=== PATIENT | male | born 1965 ===

== ENCOUNTER 2021-11-09 14:12 | Emergency (ER) | payer MEDICAID, SELFPAY ==
--- NOTE | ~2021-11-09 | XR_ITS ---
EXAMINATION: XR CHEST CLINICAL INFORMATION: Shortness of breath. COMPARISON: None TECHNIQUE: Frontal view of the chest was obtained. FINDINGS: Patchy opacities are seen in the left mid and lower lung ye. There is mild prominence of the pulmonary vasculature and cardiac silhouette. The mediastinal structures are unremarkable. XR/XR chest 1V IMPRESSION: Patchy opacities in the left mid and lower lung ye could represent atelectasis and/or infiltrates. Underlying mild congestion cannot be excluded.
--- NOTE | 2021-11-09 14:19 | ECG_ITS ---
Test Reason : CHEST PAIN Blood Pressure : / mmHG Vent. Rate : 086 BPM Atrial Rate : 000 BPM P-R Int : 000 ms QRS Dur : 078 ms QT Int : 374 ms P-R-T Axes : 000 -01 045 degrees QTc Int : 447 ms Atrial fibrillation Abnormal ECG No previous ECGs available Referred By: Sigrid Morris Electronically Signed By:JOSEY MESSER
[2021-11-09 14:22] VITALS: BP 117/87; BP 118/78; PULSE 79; PULSE 88; RESP 18; TEMP 37; O2SAT 95; O2SAT 96; BMI 30.5
--- NOTE | 2021-11-09 14:28 | ED.CHESTPAIN ---
HPI - Chest Pain General Chief Complaint: Chest Pain Stated Complaint: SOB,CP FROM [facility] PER EMS Time Seen by Provider: 11/09/21 14:17 Source: patient Mode of arrival: EMS History of Present Illness HPI narrative: This is a 56-year-old male who is brought in by EMS from a [facility], not known to us, for reported complaints of chest pain and shortness of breath since yesterday. 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 Patient states that the chest pain started yesterday, sharp in nature, nonradiating, intermittent, not associated with fever, chills, shortness of breath, dizziness, sweating. Patient states that he had the sharp chest pain all morning but currently is completely asymptomatic. Patient states that he was started on oxygen approximately 1 month ago. He denies any abdominal pain and is noted to have a Mathias catheter in place. Related Data Previous Rx's Medication Instructions Recorded amoxicillin 875 mg-potassium 1 tab PO Q12H 7 Days #14 tab 11/09/21 clavulanate 125 mg tablet Allergies Allergy/AdvReac Type Severity Reaction Status Date / Time No Known Allergies Allergy Verified 11/09/21 17:25 Review of Systems Review of Systems: Pertinent positives and negatives as stated in HPI 10 point review of systems is otherwise negative. PMFSH Past Medical History Source: nursing notes reviewed Social History Social History Alcohol intake: never Patient Tobacco Use Status: Never used Tobacco Use of substances other than those prescribed or required for medical reasons: No Advance Directives: No Advance Directives Information Provided: No Physical Exam Vital Signs: Vital Signs: Last Vital Signs Temp 98.6 F 11/09/21 14:22 Pulse 80 11/09/21 15:04 Resp 22 H 11/09/21 15:04 BP 127/90 H 11/09/21 15:04 Pulse Ox 98 11/09/21 15:04 Oxygen Flow Rate 2 11/09/21 14:22 BMI result Body Mass Index 30.5 VITAL SIGNS: Reviewed. GENERAL: Well developed, well nourished, in no acute distress. HEAD: Normocephalic/atraumatic EYES: PERRLA, EOMI EARS: Ext canals without abnormality OROPHARYNX: no oral lesions noted, posterior pharynx clear LUNGS: Good inspiratory effort without rhonchi/rales but noted decreased breath sounds at left base. SpO2<95> on 2 L of nasal cannula CARDIOVASCULAR: IRR/IRR without noted murmurs, no JVD or lower extremity edema. ABDOMEN: Soft, non-tender, non-distended with bowel sounds. MUSCULOSKELETAL: No tenderness, deformities, or effusions noted on gross inspection. EXTREMITIES: No cyanosis, clubbing or edema. SKIN: Inspection of the skin reveals no rashes, noted petechiae to left lower extremity NEUROLOGIC: Alert and oriented x 4. Left-sided hemiparesis at baseline, sensation is intact. Course Course Course Narrative: 56-year-old male with history and clinical presentation possible GERD symptoms, will evaluate for evidence of pneumonia not suspecting cardiac in nature at this time. Review of all investigations demonstrates possible infiltrates in the left lung, patient is oxygenating well on his baseline nasal cannula, troponin and BNP are benign without ischemic changes on EKG. Patient provided with initial antibiotics and will be discharged on remaining course. MDM - Chest Pain Lab Data Result diagrams: 11/09/21 15:00 11/09/21 14:59 Labs: Lab Results 11/09/21 11/09/21 11/09/21 Range/Units 14:59 14:59 14:59 WBC (4.8-10.8) X10*3/uL RBC (4.60-5.80) X10*6/uL Hgb (14.0-18.0) g/dl Hct (42.0-52.0) % MCV (80.0-98.0) fL MCH (27.0-33.0) pg MCHC (31.0-36.0) g/dl RDW (11.0-16.0) % Plt Count (160-400) X10*3/uL MPV (9.4-12.4) fL Immature Gran % (Auto) (0.0-0.4) % Neut % (Auto) (45-73) % Lymph % (Auto) (20-40) % [place] % (Auto) (2-11) % Eos % (Auto) (0-4) % Baso % (Auto) (0-2) % Lymph # (Auto) (1.2-4.9) X10*3/uL [place] # (Auto) (0.1-1.2) X10*3/uL Eos # (Auto) (0.0-0.4) X10*3/uL Baso # (Auto) (0.0-0.2) X10*3/uL Abs Immat Gran (auto) (0.00-0.03) X10*3/uL Absolute Neuts (auto) (2.0-8.3) x10*3/uL Absolute Nucleated RBC (0.0-0.012) X10*3/uL Nucleated RBC % (auto) (0.0-0.2) /100WBC PT (9.9-13.0) SEC INR (0.9-1.1) VBG pH (7.32-7.43) VBG pCO2 mmHg VBG pO2 mmHg VBG HCO3 (22-26) mmol/L VBG O2 Saturation % VBG Base Excess mmol/L Sodium 142 (135-145) mmol/L Potassium 4.5 (3.3-5.1) mmol/L Chloride 105 (96-108) mmol/L Carbon Dioxide 28 (22-29) mmol/L Anion Gap 14 (12-20) BUN 13 (9-16) mg/dL Creatinine 0.83 (0.5-1.4) mg/dL Estim Creat Clear Calc 133.1 Estimated GFR > 60 Random Glucose 96 (60-115) mg/dL Lactic Acid (0.5-2.0) mmol/L Calcium 9.1 (8.4-10.2) mg/dL Total Bilirubin 0.5 (0.0-1.0) mg/dL AST 18 (5-37) U/L ALT 27 (0-40) U/L Alkaline Phosphatase 123 H (39-117) U/L Troponin I High Sens (<3.5-35.0) ng/L B-Natriuretic Peptide 64 (<100) pg/mL Total Protein 6.5 (6.5-8.0) g/dL Albumin 4.1 (3.5-5.0) g/dL COVID-19 ([facility]) Negative (Negative) COVID-19 Clin Com See Note 11/09/21 11/09/21 11/09/21 Range/Units 14:59 14:59 14:59 WBC (4.8-10.8) X10*3/uL RBC (4.60-5.80) X10*6/uL Hgb (14.0-18.0) g/dl Hct (42.0-52.0) % MCV (80.0-98.0) fL MCH (27.0-33.0) pg MCHC (31.0-36.0) g/dl RDW (11.0-16.0) % Plt Count (160-400) X10*3/uL MPV (9.4-12.4) fL Immature Gran % (Auto) (0.0-0.4) % Neut % (Auto) (45-73) % Lymph % (Auto) (20-40) % [place] % (Auto) (2-11) % Eos % (Auto) (0-4) % Baso % (Auto) (0-2) % Lymph # (Auto) (1.2-4.9) X10*3/uL [place] # (Auto) (0.1-1.2) X10*3/uL Eos # (Auto) (0.0-0.4) X10*3/uL Baso # (Auto) (0.0-0.2) X10*3/uL Abs Immat Gran (auto) (0.00-0.03) X10*3/uL Absolute Neuts (auto) (2.0-8.3) x10*3/uL Absolute Nucleated RBC (0.0-0.012) X10*3/uL Nucleated RBC % (auto) (0.0-0.2) /100WBC PT 14.9 H (9.9-13.0) SEC INR 1.3 H (0.9-1.1) VBG pH (7.32-7.43) VBG pCO2 mmHg VBG pO2 mmHg VBG HCO3 (22-26) mmol/L VBG O2 Saturation % VBG Base Excess mmol/L Sodium (135-145) mmol/L Potassium (3.3-5.1) mmol/L Chloride (96-108) mmol/L Carbon Dioxide (22-29) mmol/L Anion Gap (12-20) BUN (9-16) mg/dL Creatinine (0.5-1.4) mg/dL Estim Creat Clear Calc Estimated GFR Random Glucose (60-115) mg/dL Lactic Acid 1.0 (0.5-2.0) mmol/L Calcium (8.4-10.2) mg/dL Total Bilirubin (0.0-1.0) mg/dL AST (5-37) U/L ALT (0-40) U/L Alkaline Phosphatase (39-117) U/L Troponin I High Sens < 3.5 (<3.5-35.0) ng/L B-Natriuretic Peptide (<100) pg/mL Total Protein (6.5-8.0) g/dL Albumin (3.5-5.0) g/dL COVID-19 ([facility]) (Negative) COVID-19 Clin Com 11/09/21 11/09/21 Range/Units 15:00 15:03 WBC 8.3 (4.8-10.8) X10*3/uL RBC 4.50 L (4.60-5.80) X10*6/uL Hgb 13.4 L (14.0-18.0) g/dl Hct 42.0 (42.0-52.0) % MCV 93.3 (80.0-98.0) fL MCH 29.8 (27.0-33.0) pg MCHC 31.9 (31.0-36.0) g/dl RDW 14.5 (11.0-16.0) % Plt Count 236 (160-400) X10*3/uL MPV 9.8 (9.4-12.4) fL Immature Gran % (Auto) 1.0 H (0.0-0.4) % Neut % (Auto) 52.3 (45-73) % Lymph % (Auto) 37.0 (20-40) % [place] % (Auto) 6.9 (2-11) % Eos % (Auto) 2.2 (0-4) % Baso % (Auto) 0.6 (0-2) % Lymph # (Auto) 3.1 (1.2-4.9) X10*3/uL [place] # (Auto) 0.6 (0.1-1.2) X10*3/uL Eos # (Auto) 0.2 (0.0-0.4) X10*3/uL Baso # (Auto) 0.1 (0.0-0.2) X10*3/uL Abs Immat Gran (auto) 0.08 H (0.00-0.03) X10*3/uL Absolute Neuts (auto) 4.3 (2.0-8.3) x10*3/uL Absolute Nucleated RBC 0.000 (0.0-0.012) X10*3/uL Nucleated RBC % (auto) 0.0 (0.0-0.2) /100WBC PT (9.9-13.0) SEC INR (0.9-1.1) VBG pH 7.39 (7.32-7.43) VBG pCO2 46 mmHg VBG pO2 44 mmHg VBG HCO3 28 H (22-26) mmol/L VBG O2 Saturation 70.0 % VBG Base Excess 3.1 mmol/L Sodium (135-145) mmol/L Potassium (3.3-5.1) mmol/L Chloride (96-108) mmol/L Carbon Dioxide (22-29) mmol/L Anion Gap (12-20) BUN (9-16) mg/dL Creatinine (0.5-1.4) mg/dL Estim Creat Clear Calc Estimated GFR Random Glucose (60-115) mg/dL Lactic Acid (0.5-2.0) mmol/L Calcium (8.4-10.2) mg/dL Total Bilirubin (0.0-1.0) mg/dL AST (5-37) U/L ALT (0-40) U/L Alkaline Phosphatase (39-117) U/L Troponin I High Sens (<3.5-35.0) ng/L B-Natriuretic Peptide (<100) pg/mL Total Protein (6.5-8.0) g/dL Albumin (3.5-5.0) g/dL COVID-19 ([facility]) (Negative) COVID-19 Clin Com ECG Data ECG #1: Attestation: I personally reviewed and interpreted this ECG as follows: Prior ECG tracings: not available for review Interpretation: Atrial fibrillation, HR-86, no STEMI, QRS and QTC are within normal limits. Discharge Plan Discharge Clinical Impression: Shortness of breath, Atypical chest pain, Pneumonia Patient Disposition: er [facility] Instructions: Pneumonia (ED), Shortness of Breath (ED) Additional Instructions: 1. Resume all home medications. 2. Complete the entire course of antibiotics. 3. Follow-up with your primary care provider in the next 1-2 days. Return to the ER for worsening symptoms. Prescriptions: New amoxicillin-pot clavulanate 875-125 mg tablet 1 tab PO Q12H 7 Days Qty: 14 0RF
[2021-11-09 15:04] VITALS: BP 127/90; PULSE 80; RESP 22; O2SAT 98
[2021-11-09 15:06] LABS: MANUAL DIFF FLAG NO
[2021-11-09 15:08] LABS: Basophils Absolute Auto 0.1 X10*3/uL (0.0-0.2); Basophils Percent Auto 0.6 % (0-2); Eosinophils Absolute Auto 0.2 X10*3/uL (0.0-0.4); Eosinophils Percent Auto 2.2 % (0-4); Hemoglobin 13.4 g/dl (14.0-18.0); Imm Gran Abs Auto 0.08 X10*3/uL (0.00-0.03); Lymphocytes Absolute Auto 3.1 X10*3/uL (1.2-4.9); Mean Corpuscular HGB Conc 31.9 g/dl (31.0-36.0); Mean Corpuscular Hemoglobin 29.8 pg (27.0-33.0); Mean Corpuscular Volume 93.3 fL (80.0-98.0); Mean Platelet Volume 9.8 fL (9.4-12.4); Monocytes Absolute Auto 0.6 X10*3/uL (0.1-1.2); Monocytes Percent Auto 6.9 % (2-11); Neutrophils Absolute Auto 4.3 x10*3/uL (2.0-8.3); Neutrophils Percent Auto 52.3 % (45-73); Platelet Count 236 X10*3/uL (160-400); Red Cell Distribution Width 14.5 % (11.0-16.0); White Blood Count 8.3 X10*3/uL (4.8-10.8)
[2021-11-09 15:11] LABS: VBG Base Excess 3.1 mmol/L; VBG HCO3 28 mmol/L (22-26); VBG pCO2 46 mmHg; VBG pH 7.39 (7.32-7.43); VBG pO2 44 mmHg
[2021-11-09 15:14] LABS: INTERNATIONAL NORM RATIO 1.3 (0.9-1.1); Prothrombin Time 14.9 SEC (9.9-13.0)
[2021-11-09 15:24] LABS: COVID-19 Test Negative (Negative); IDNOW Serial# 16C4AD1C
[2021-11-09 15:33] LABS: Alanine Aminotransferase 27 U/L (0-40); Albumin Level 4.1 g/dL (3.5-5.0); Alkaline Phosphatase 123 U/L (39-117); Anion Gap 14 (12-20); Aspartate Amino Transferase 18 U/L (5-37); Bilirubin Total 0.5 mg/dL (0.0-1.0); Blood Urea Nitrogen 13 mg/dL (9-16); Calcium 9.1 mg/dL (8.4-10.2); Carbon Dioxide 28 mmol/L (22-29); Chloride 105 mmol/L (96-108); Creatinine Clr Calc Pharmacy 133.1; Estimated Glomerular Filt Rate > 60; Glucose Random 96 mg/dL (60-115); Potassium 4.5 mmol/L (3.3-5.1); Sodium 142 mmol/L (135-145); Total Protein 6.5 g/dL (6.5-8.0)
[2021-11-09 15:37] LABS: Venous Blood Gas Refer to POC result
[2021-11-09 15:40] LABS: B Type Natriuretic Peptide 64 pg/mL (<100); Troponin-I High Sensitivity < 3.5 ng/L (<3.5-35.0)
--- NOTE | 2021-11-09 16:19 | PC.NURSE ---
[place] cath placed on pt per his request as this is how he reportedly voids at home. Pt denies CP at this time.
[2021-11-09] MEDS: Piperacillin Sodium/Tazobactam 3.375 GM in 0.9 % Sodium Chloride 50 ML IV (17:00)
[2021-11-09 17:23] VITALS: BP 115/76; PULSE 87; RESP 16; O2SAT 96
--- NOTE | 2021-11-09 23:42 | PC.NURSE ---
pt provided food and assisted with feeding by EDT. plan is for pt to be transported back to intermediate tomorrow, per charge nurse EMS cannot get pt tonight.
[2021-11-10 01:08] VITALS: BP 113/79; PULSE 94; RESP 20; TEMP 36.8; O2SAT 99
--- NOTE | 2021-11-10 02:08 | PC.NURSE ---
pt screaming at this RN and EDT that his [place] cath is leaking This RN an EDT to bedside to assess catheter, catheter remains in place, and there is no urine on the pad or bedsheet. this RN ensures pt that the catheter is still in tact, pt begins screaming at this RN and EDT and tells us to Go to hell this RN informs pt that that is not appropriate behavior for the ER. no evidence of learning.
--- NOTE | 2021-11-10 03:41 | PC.NURSE ---
pt repositioned in bed several times by this RN and EDT. pt provided with gingerale per request.
--- NOTE | 2021-11-10 05:01 | PC.NURSE ---
pt provided perineal care & linen change.
[2021-11-10] MEDS: LORazepam 2 MG/ML VIAL 1 MG IVPUSH (05:13)
--- NOTE | 2021-11-10 05:17 | PC.NURSE ---
pt agitated and screaming at staff, MD aware. pt requesting something for anxiety.
[2021-11-10 07:31] VITALS: BP 125/78; PULSE 94; RESP 16; TEMP 36.6; O2SAT 92
== END 2021-11-10 08:46 | disposition skilled nursing facility (03) ==
PROVIDERS: Emergency Provider Student in an Organized Health Care Education/Training Program
DX: R07.89 Other chest pain (principal); J18.9 Pneumonia, unspecified organism; R06.02 Shortness of breath; Z20.822 Contact with and (suspected) exposure to COVID-19; I48.91 Unspecified atrial fibrillation; Z79.01 Long term (current) use of anticoagulants
CPT/HCPCS: 36415; 71045; 80053; 82803; 83605; 83880; 84484; 85025; 85610; 86140; 87040; 87635; 93005; 96365; 96375; 99284; 99285; J2060; J2543

== ENCOUNTER 2021-11-13 13:30 | Emergency (ER) | payer MEDICAID, SELFPAY ==
--- NOTE | ~2021-11-13 | XR_ITS ---
EXAMINATION: XR CHEST CLINICAL INFORMATION: Shortness of breath COMPARISON: 11/09/2021 TECHNIQUE: Frontal view of the chest was obtained. XR/XR chest 1V FINDINGS/IMPRESSION: Compared to the prior exam, little significant interval change has occurred. Again noted is cardiomegaly and pulmonary vascular congestion with increased interstitial markings with a few more superimposed focal infiltrates on the left. Findings are suggestive of CHF with edema with possible underlying infection.
[2021-11-13 13:51] VITALS: BP 123/84; PULSE 78; O2SAT 94
[2021-11-13 13:53] VITALS: BP 96/64; PULSE 76; RESP 18; TEMP 36.5; O2SAT 96; BMI 30.8
--- NOTE | 2021-11-13 14:03 | ECG_ITS ---
Test Reason : chest pain Blood Pressure : / mmHG Vent. Rate : 079 BPM Atrial Rate : 000 BPM P-R Int : 000 ms QRS Dur : 078 ms QT Int : 376 ms P-R-T Axes : 000 008 055 degrees QTc Int : 431 ms Atrial fibrillation Low voltage QRS Abnormal ECG When compared with ECG of 09-NOV-2021 14:18, No significant change was found Referred By: Federica So Electronically Signed By:JOSEY MESSER
--- NOTE | 2021-11-13 14:05 | ED.SOB ---
HPI - SOB/Dyspnea General Chief Complaint: Dyspnea Stated Complaint: chest discomfort per facility per ems Time Seen by Provider: 11/13/21 14:03 Source: patient, EMS and old records reviewed Mode of arrival: EMS Limitations: no limitations History of Present Illness HPI Narrative: 56 y/o male with history of COPD on O2, CHF, afib on xarelto, CVA with left sided hemiparesis who presents to the ER via EMS from residential for evaluation of chest pain. On arrival to the ER patient denies every having chest pain. He reports shortness of breath that is his baseline. He feels normal. He wants to go home. He is declining a workup. Per review of records, he was seen here on 11/09 and diagnosed with left-sided pneumonia. He was discharged with Augmentin. He denies any productive cough. MD elicited complaint: shortness of breath Pertinent past history: COPD and congestive heart failure Onset (ago): unknown Timing: constant Severity: mild Exacerbating factors: nothing Relieving factors: nothing Known history of: COPD and congestive heart failure Associated symptoms: denies other symptoms Treatment prior to arrival: oxygen Related Data Home oxygen amount: 3 liters Previous Rx's Medication Instructions Recorded amoxicillin 875 mg-potassium 1 tab PO Q12H 7 days #14 tabs 11/09/21 clavulanate 125 mg tablet levofloxacin 750 mg tablet 750 mg PO DAILY #7 tabs 11/13/21 Allergies Allergy/AdvReac Type Severity Reaction Status Date / Time No Known Allergies Allergy Verified 11/09/21 17:25 Review of Systems Review of Systems: Constitutional: No Fever, No Chills ENT/Mouth: No sore throat, No Rhinorrhea, No Swallowing Difficulty Eyes: No Eye Pain, No Swelling, No Redness Cardiovascular: No Chest Pain, + SOB, No Orthopnea, No Edema Respiratory: No Cough, No Sputum, No Wheezing, No dyspnea Gastrointestinal: No Nausea, No Vomiting, No Diarrhea, No abdominal Pain Genitourinary: No Dysuria, No Urinary Frequency, No Hematuria Musculoskeletal: No joint pain, No Myalgias Skin: No Skin Lesions, No rash Neuro: No Weakness, No Numbness, No Dizziness, No Headache Psych: No Anxiety/Panic, No Depression Heme/Lymph: No Bruising, No Lymphadenopathy Endocrine: No Polyuria, No Polydipsia PMFSH Social History Social History Alcohol intake: never Patient Tobacco Use Status: Never used Tobacco Advance Directives: Yes Advance Directives on File: Yes Advance Directives Date on File: 11/11/21 Physical Exam Vital Signs: Vital Signs: Last Vital Signs Temp 97.7 F 11/13/21 13:53 Pulse 76 11/13/21 13:53 Resp 18 11/13/21 13:53 BP 96/64 11/13/21 13:53 Pulse Ox 96 11/13/21 13:53 O2 Del Method 11/13/21 13:53 Oxygen Flow Rate 3 11/13/21 13:53 BMI result Body Mass Index 30.8 Appearance: Alert. Oriented X3. No acute distress. Eyes: Pupils equal, round and reactive to light. ENT: Pharynx normal. Neck: Normal inspection. Neck supple. CVS: irregularly irregular. Pulses normal. Respiratory: No respiratory distress. Breath sounds normal. Abdomen: Soft and nontender. +BS x4 Skin: Skin warm and dry. Normal skin color. Normal skin turgor. No rashes. Extremities: No lower extremity edema. Flaccid right UE. Neuro: Oriented X 3. Left sided hemiparesis. Right sided weakness 4/5 throughout. Normal speech. Course Course Course Narrative: 56 y/o male with history of COPD on O2, CHF, CVA with left sided hemiparesis, afib on Xarelto who presents with reported chest pain which patient denies. He reports baseline SOB which is unchanged. No cough. EKG on arrival has no ischemic changes. Will attempt to get labs to check troponin and basic labs. CXR ordered. Initially refusing but eventually convinced to allow workup. Reevaluation(s) Reevaluation #1: Labs unremarkable. Troponin is negative. CXR reviewed - persistent left sided infiltrates noted. Radiology's read chest x-ray with little significant change. Pulmonary vascular congestion with increased markings, a few more superimposed focal infiltrates on the left. Findings suggestive of CHF with edema and possible underlying infection. His lab workups are normal BNP 51. No history of heart failure. He is already on Augmentin. Will add Levaquin to his regimen given his pulmonary history. He is not septic from his pneumonia. He is saturating well on his baseline O2. He is stable for discharge home with additional antibiotic treatment. MDM - SOB/Dyspnea Medical Records Attestation: I reviewed the patient's medical records. Lab Data Attestation: I reviewed the patient's lab results. Result diagrams: 11/13/21 15:04 11/13/21 15:04 Labs: Lab Results 11/13/21 11/13/21 11/13/21 Range/Units 15:04 15:04 15:04 WBC 9.5 (4.8-10.8) X10*3/uL RBC 4.60 (4.60-5.80) X10*6/uL Hgb 13.8 L (14.0-18.0) g/dl Hct 43.1 (42.0-52.0) % MCV 93.7 (80.0-98.0) fL MCH 30.0 (27.0-33.0) pg MCHC 32.0 (31.0-36.0) g/dl RDW 14.5 (11.0-16.0) % Plt Count 265 (160-400) X10*3/uL MPV 9.8 (9.4-12.4) fL Immature Gran % (Auto) 0.6 H (0.0-0.4) % Neut % (Auto) 59.3 (45-73) % Lymph % (Auto) 32.1 (20-40) % [place] % (Auto) 5.7 (2-11) % Eos % (Auto) 1.6 (0-4) % Baso % (Auto) 0.7 (0-2) % Lymph # (Auto) 3.0 (1.2-4.9) X10*3/uL [place] # (Auto) 0.5 (0.1-1.2) X10*3/uL Eos # (Auto) 0.2 (0.0-0.4) X10*3/uL Baso # (Auto) 0.1 (0.0-0.2) X10*3/uL Abs Immat Gran (auto) 0.06 H (0.00-0.03) X10*3/uL Absolute Neuts (auto) 5.6 (2.0-8.3) x10*3/uL Absolute Nucleated RBC 0.000 (0.0-0.012) X10*3/uL Nucleated RBC % (auto) 0.0 (0.0-0.2) /100WBC Sodium 141 (135-145) mmol/L Potassium 4.6 (3.3-5.1) mmol/L Chloride 103 (96-108) mmol/L Carbon Dioxide 32 H (22-29) mmol/L Anion Gap 11 L (12-20) BUN 17 H (9-16) mg/dL Creatinine 1.03 (0.5-1.4) mg/dL Estim Creat Clear Calc 98.9 Estimated GFR > 60 Random Glucose 119 H (60-115) mg/dL Calcium 9.2 (8.4-10.2) mg/dL Magnesium 2.4 (1.6-2.6) mg/dL Total Bilirubin 0.7 (0.0-1.0) mg/dL Direct Bilirubin 0.3 (0.0-0.5) mg/dL AST 14 (5-37) U/L ALT 24 (0-40) U/L Alkaline Phosphatase 126 H (39-117) U/L Troponin I High Sens (<3.5-35.0) ng/L B-Natriuretic Peptide (<100) pg/mL Total Protein 6.9 (6.5-8.0) g/dL Albumin 4.3 (3.5-5.0) g/dL COVID-19 ([facility]) Negative (Negative) COVID-19 Clin Com See Note 11/13/21 11/13/21 Range/Units 15:04 15:04 WBC (4.8-10.8) X10*3/uL RBC (4.60-5.80) X10*6/uL Hgb (14.0-18.0) g/dl Hct (42.0-52.0) % MCV (80.0-98.0) fL MCH (27.0-33.0) pg MCHC (31.0-36.0) g/dl RDW (11.0-16.0) % Plt Count (160-400) X10*3/uL MPV (9.4-12.4) fL Immature Gran % (Auto) (0.0-0.4) % Neut % (Auto) (45-73) % Lymph % (Auto) (20-40) % [place] % (Auto) (2-11) % Eos % (Auto) (0-4) % Baso % (Auto) (0-2) % Lymph # (Auto) (1.2-4.9) X10*3/uL [place] # (Auto) (0.1-1.2) X10*3/uL Eos # (Auto) (0.0-0.4) X10*3/uL Baso # (Auto) (0.0-0.2) X10*3/uL Abs Immat Gran (auto) (0.00-0.03) X10*3/uL Absolute Neuts (auto) (2.0-8.3) x10*3/uL Absolute Nucleated RBC (0.0-0.012) X10*3/uL Nucleated RBC % (auto) (0.0-0.2) /100WBC Sodium (135-145) mmol/L Potassium (3.3-5.1) mmol/L Chloride (96-108) mmol/L Carbon Dioxide (22-29) mmol/L Anion Gap (12-20) BUN (9-16) mg/dL Creatinine (0.5-1.4) mg/dL Estim Creat Clear Calc Estimated GFR Random Glucose (60-115) mg/dL Calcium (8.4-10.2) mg/dL Magnesium (1.6-2.6) mg/dL Total Bilirubin (0.0-1.0) mg/dL Direct Bilirubin (0.0-0.5) mg/dL AST (5-37) U/L ALT (0-40) U/L Alkaline Phosphatase (39-117) U/L Troponin I High Sens < 3.5 (<3.5-35.0) ng/L B-Natriuretic Peptide 51 (<100) pg/mL Total Protein (6.5-8.0) g/dL Albumin (3.5-5.0) g/dL COVID-19 ([facility]) (Negative) COVID-19 Clin Com ECG Data Attestation: I personally reviewed and interpreted this ECG as follows: ECG interpretation date: 11/13/21 ECG interpretation time: 16:28 Prior ECG tracings: available for review Interpretation: Atrial fibrillation, heart rate 79 beats per minute, no change from prior. No ischemic changes. Critical Care Time Critical Care Time Critical Care Time: No Discharge Plan Discharge Clinical Impression: Pneumonia Patient Disposition: Xfer Other Transfer Details: skilled nursing Instructions: Pneumonia (ED) Additional Instructions: Continue taking the previously prescribed antibiotic in addition to this new antibiotic. Complete the entire course. Follow-up with your doctor in 1 week. Prescriptions: New levofloxacin 750 mg tablet 750 mg PO DAILY Qty: 7 0RF No Action amoxicillin-pot clavulanate 875-125 mg tablet 1 tab PO Q12H 7 Days Qty: 14 0RF
--- NOTE | 2021-11-13 14:39 | PC.NURSE ---
Patient refused to let this PCT draw blood.
[2021-11-13 15:08] LABS: MANUAL DIFF FLAG NO
[2021-11-13 15:11] LABS: Basophils Absolute Auto 0.1 X10*3/uL (0.0-0.2); Basophils Percent Auto 0.7 % (0-2); Eosinophils Absolute Auto 0.2 X10*3/uL (0.0-0.4); Eosinophils Percent Auto 1.6 % (0-4); Hematocrit 43.1 % (42.0-52.0); Hemoglobin 13.8 g/dl (14.0-18.0); Imm Gran Abs Auto 0.06 X10*3/uL (0.00-0.03); Imm Gran Pct Auto 0.6 % (0.0-0.4); Lymphocytes Percent Auto 32.1 % (20-40); Mean Corpuscular Volume 93.7 fL (80.0-98.0); Mean Platelet Volume 9.8 fL (9.4-12.4); Monocytes Absolute Auto 0.5 X10*3/uL (0.1-1.2); Monocytes Percent Auto 5.7 % (2-11); Neutrophils Absolute Auto 5.6 x10*3/uL (2.0-8.3); Neutrophils Percent Auto 59.3 % (45-73); Platelet Count 265 X10*3/uL (160-400); Red Cell Distribution Width 14.5 % (11.0-16.0); White Blood Count 9.5 X10*3/uL (4.8-10.8)
[2021-11-13 15:25] LABS: Alanine Aminotransferase 24 U/L (0-40); Albumin Level 4.3 g/dL (3.5-5.0); Alkaline Phosphatase 126 U/L (39-117); Anion Gap 11 (12-20); Aspartate Amino Transferase 14 U/L (5-37); Bilirubin Direct 0.3 mg/dL (0.0-0.5); Bilirubin Total 0.7 mg/dL (0.0-1.0); Blood Urea Nitrogen 17 mg/dL (9-16); Calcium 9.2 mg/dL (8.4-10.2); Carbon Dioxide 32 mmol/L (22-29); Chloride 103 mmol/L (96-108); Creatinine Clr Calc Pharmacy 98.9; Estimated Glomerular Filt Rate > 60; Glucose Random 119 mg/dL (60-115); Magnesium 2.4 mg/dL (1.6-2.6); Potassium 4.6 mmol/L (3.3-5.1); Sodium 141 mmol/L (135-145); Total Protein 6.9 g/dL (6.5-8.0)
[2021-11-13 15:27] LABS: COVID-19 Test Negative (Negative); IDNOW Serial# 16C4AD1C
[2021-11-13 15:30] LABS: B Type Natriuretic Peptide 51 pg/mL (<100); Troponin-I High Sensitivity < 3.5 ng/L (<3.5-35.0)
[2021-11-13] MEDS: levoFLOXacin 750 MG TABLET PO (16:55)
[2021-11-13 16:56] VITALS: BP 107/68; PULSE 80; RESP 18; O2SAT 97
[2021-11-13] MEDS: Ibuprofen 600 MG TABLET PO (17:40)
== END 2021-11-13 18:41 | disposition other institution (70) ==
PROVIDERS: Physician Assistant; Emergency Provider Emergency Medicine
DX: J18.9 Pneumonia, unspecified organism (principal); R06.02 Shortness of breath; Z20.822 Contact with and (suspected) exposure to COVID-19; J44.9 Chronic obstructive pulmonary disease, unspecified; I48.91 Unspecified atrial fibrillation; Z79.01 Long term (current) use of anticoagulants; Z99.81 Dependence on supplemental oxygen; Z86.73 Personal history of transient ischemic attack (TIA), and cerebral infarction without residual deficits
CPT/HCPCS: 36415; 71045; 80048; 80076; 83735; 83880; 84484; 85025; 87635; 93005; 99283; 99284

== ENCOUNTER 2021-12-15 14:25 | Emergency (ER) | payer MEDICAID, SELFPAY ==
--- NOTE | ~2021-12-15 | XR_ITS ---
EXAMINATION: XR CHEST CLINICAL INFORMATION: SOB COMPARISON: Chest 11/13/2021 TECHNIQUE: Frontal view of the chest was obtained. FINDINGS: The lungs are hypoexpanded with increased vascularity and mild cardiomegaly. The findings are suggestive mild CHF. No gross bony abnormality seen. XR/XR chest 1V IMPRESSION: Cardiomegaly with mild CHF. Similar findings were seen on 11/13/2021. The lungs are hypoexpanded.
[2021-12-15 14:53] VITALS: BP 114/63; PULSE 78; O2SAT 96
[2021-12-15 14:54] VITALS: BP 96/62; PULSE 78; RESP 20; TEMP 36.4; O2SAT 96; BMI 25.7
--- NOTE | 2021-12-15 15:03 | ECG_ITS ---
Test Reason : sob Blood Pressure : / mmHG Vent. Rate : 085 BPM Atrial Rate : 000 BPM P-R Int : 000 ms QRS Dur : 078 ms QT Int : 392 ms P-R-T Axes : 000 011 040 degrees QTc Int : 466 ms Atrial fibrillation Low voltage QRS Abnormal ECG When compared with ECG of 13-NOV-2021 13:57, No significant change was found Referred By: Sigrid Morris Electronically Signed By:JAGDISH LIU MD
[2021-12-15 16:47] LABS: Venous Blood Gas Refer to POC result
[2021-12-15 16:47] LABS: VBG Base Excess -2.3 mmol/L; VBG HCO3 21 mmol/L (22-26); VBG pCO2 34 mmHg; VBG pO2 70 mmHg
[2021-12-15 16:57] LABS: INTERNATIONAL NORM RATIO 1.4 (0.9-1.1); Prothrombin Time 15.7 SEC (10.0-13.1)
[2021-12-15 17:03] LABS: Alanine Aminotransferase 32 U/L (0-40); Albumin Level 4.3 g/dL (3.5-5.0); Alkaline Phosphatase 136 U/L (39-117); Anion Gap 12 (12-20); Aspartate Amino Transferase 20 U/L (5-37); Bilirubin Total 0.6 mg/dL (0.0-1.0); Blood Urea Nitrogen 14 mg/dL (9-16); Calcium 9.3 mg/dL (8.4-10.2); Carbon Dioxide 29 mmol/L (22-29); Chloride 101 mmol/L (96-108); Creatinine Clr Calc Pharmacy 125.8; Estimated Glomerular Filt Rate > 60; Glucose Random 97 mg/dL (60-115); Potassium 4.3 mmol/L (3.3-5.1); Sodium 138 mmol/L (135-145); Total Protein 6.8 g/dL (6.5-8.0)
--- NOTE | 2021-12-15 17:04 | ED.SOB ---
HPI - SOB/Dyspnea General Chief Complaint: Dyspnea Stated Complaint: SOB,HOME O2 @4LPM 97% PER EMS Time Seen by Provider: 12/15/21 15:03 Source: patient Mode of arrival: EMS History of Present Illness HPI Narrative: 56-year-old male brought in by EMS for shortness of breath with positive history of COPD on oxygen, CHF, AFib on Xarelto, and history of CVA with left-sided hemiparesis. Patient denies any fever chills or abdominal pain and denies any chest pain. Related Data Previous Rx's Medication Instructions Recorded amoxicillin 875 mg-potassium 1 tab PO Q12H 7 days #14 tabs 11/09/21 clavulanate 125 mg tablet levofloxacin 750 mg tablet 750 mg PO DAILY #7 tabs 11/13/21 Allergies Allergy/AdvReac Type Severity Reaction Status Date / Time No Known Allergies Allergy Verified 12/15/21 14:53 Review of Systems Review of Systems: Pertinent positive and negative as per the HPI in 10 point review of systems otherwise negative. PMFSH Past Medical History Source: nursing notes reviewed Social History Social History Alcohol intake: never Patient Tobacco Use Status: Former Tobacco user Advance Directives: Yes Advance Directives on File: Yes Advance Directives Date on File: 11/11/21 Physical Exam Vital Signs: Vital Signs: Last Vital Signs Temp 97.6 F 12/15/21 14:54 Pulse 78 12/15/21 14:54 Resp 20 12/15/21 14:54 BP 96/62 12/15/21 14:54 Pulse Ox 96 12/15/21 14:54 O2 Del Method 12/15/21 14:54 Oxygen Flow Rate 4 12/15/21 14:54 BMI result Body Mass Index 25.7 VITAL SIGNS: Reviewed. GENERAL: Well developed, well nourished, in no acute distress. HEAD: Normocephalic/atraumatic EYES: PERRLA, EOMI EARS: Ext canals without abnormality OROPHARYNX: no oral lesions noted, posterior pharynx clear LUNGS: Normal breath sounds. No adventitious sounds or accessory muscle use. SpO2<96> CARDIOVASCULAR: Regular rate and rhythm without noted murmurs, no JVD or lower extremity edema. ABDOMEN: Soft, non-tender, non-distended with bowel sounds. MUSCULOSKELETAL: No tenderness, deformities, or effusions noted on gross inspection. EXTREMITIES: No cyanosis, clubbing or edema. SKIN: Inspection of the skin reveals no rashes NEUROLOGIC: Alert and oriented x 4. Strength and sensation to light touch were grossly intact x 4. Course Course Course Narrative: 56-year-old male with history and clinical presentation suggestive possible respiratory exacerbation. Signed out to Dr Dallas. MDM - SOB/Dyspnea Lab Data Result diagrams: 12/15/21 16:38 Labs: Lab Results 12/15/21 12/15/21 12/15/21 Range/Units 16:38 16:38 16:42 PT 15.7 H (10.0-13.1) SEC INR 1.4 H (0.9-1.1) VBG pH 7.40 (7.32-7.43) VBG pCO2 34 mmHg VBG pO2 70 mmHg VBG HCO3 21 L (22-26) mmol/L VBG O2 Saturation 92.0 % VBG Base Excess -2.3 mmol/L Sodium 138 (135-145) mmol/L Potassium 4.3 (3.3-5.1) mmol/L Chloride 101 (96-108) mmol/L Carbon Dioxide 29 (22-29) mmol/L Anion Gap 12 (12-20) BUN 14 (9-16) mg/dL Creatinine 0.78 (0.5-1.4) mg/dL Estim Creat Clear Calc 125.8 Estimated GFR > 60 Random Glucose 97 (60-115) mg/dL Calcium 9.3 (8.4-10.2) mg/dL Total Bilirubin 0.6 (0.0-1.0) mg/dL AST 20 D (5-37) U/L ALT 32 (0-40) U/L Alkaline Phosphatase 136 H (39-117) U/L Total Protein 6.8 (6.5-8.0) g/dL Albumin 4.3 (3.5-5.0) g/dL Discharge Plan Discharge Clinical Impression: Breath shortness Patient Disposition: Still a Patient Prescriptions: No Action amoxicillin-pot clavulanate 875-125 mg tablet 1 tab PO Q12H 7 Days Qty: 14 0RF levofloxacin 750 mg tablet 750 mg PO DAILY Qty: 7 0RF
[2021-12-15 17:08] LABS: B Type Natriuretic Peptide 31 pg/mL (<100)
--- NOTE | 2021-12-15 18:51 | PC.NURSE ---
pt alert and orientedx2, vss, maintaining 96% on 2L O2, resp even and unlabored, no shortness of breath noted. pt requesting to return to long term - reporting that symptoms have resolved.
[2021-12-15 18:56] VITALS: BP 104/79; PULSE 72; RESP 16; O2SAT 95
== END 2021-12-15 22:59 | disposition skilled nursing facility (03) ==
PROVIDERS: Student in an Organized Health Care Education/Training Program; Emergency Provider Internal Medicine
DX: R06.02 Shortness of breath (principal); J44.9 Chronic obstructive pulmonary disease, unspecified; Z99.81 Dependence on supplemental oxygen; Z79.899 Other long term (current) drug therapy; Z87.891 Personal history of nicotine dependence
CPT/HCPCS: 36415; 71045; 80053; 82803; 83880; 85610; 93005; 99284

== ENCOUNTER 2022-02-06 12:37 | Emergency (ER) | payer MEDICAID, SELFPAY ==
[2022-02-06] VITALS (7 sets, daily range): BP systolic 81–118; BP diastolic 51–77; PULSE 66–108; RESP 14–20; TEMP 36.5–36.8; O2SAT 93–98; BMI 23.1
--- NOTE | ~2022-02-06 | CT_ITS ---
EXAMINATION: CT HEAD WITHOUT CONTRAST CLINICAL INFORMATION: Agitation. COMPARISON: There are no prior studies available for comparison. TECHNIQUE: Contiguous axial imaging was performed from the skull base to vertex without intravenous administration of contrast. Coronal and sagittal reformatted images were generated at the technologist workstation. This CT examination was performed using dose optimization techniques as appropriate, variously including the following: *Automated exposure control *Adjustment of mA and/or kV according to patient size (this includes techniques or standardized protocols for targeted exams where dose is matched to indication/reason for exam; i.e. extremities or head) *Use of iterative reconstruction technique DLP: 916 mGy-cm FINDINGS: There are sequelae of a right-sided [id number]-[id number] craniotomy. There is mild thickening of the dura subjacent to the craniotomy flap. There is a large area of underlying cystic encephalomalacia, and there is ex-vacuo dilatation of the body and temporal horn of the right lateral ventricle. There are gliotic changes in the right centrum semiovale, more extensive anteriorly. There is no evidence of acute intracranial hemorrhage or territorial infarction. No abnormal mass-effect or midline shift is seen. Elsewhere, gillis to white matter differentiation is well preserved. No extra-axial fluid collections are identified. There are no acute osseous findings. The mastoid air cells are well-aerated. There is mucosal thickening in the visualized left maxillary sinus. The ventricles are normal in size. There is no abnormal attenuation within the brain parenchyma. The osseous structures and soft tissues are normal. The mastoid air cells and visualized paranasal sinuses are well aerated.. CT/CT head/brain wo IV con IMPRESSION: 1. There are no acute bleeds or territorial infarcts. No masses are demonstrated. 2. 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 There are gliotic changes in the right centrum semiovale.
--- NOTE | 2022-02-06 12:49 | ECG_ITS ---
Test Reason : ? overdose Blood Pressure : / mmHG Vent. Rate : 083 BPM Atrial Rate : 000 BPM P-R Int : 000 ms QRS Dur : 078 ms QT Int : 378 ms P-R-T Axes : 000 -04 036 degrees QTc Int : 444 ms Atrial fibrillation Low voltage QRS Abnormal ECG When compared with ECG of 15-DEC-2021 15:47, No significant change was found Referred By: Beka Vaughn Electronically Signed By:SANTIAGO ACEVEDO
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
--- NOTE | 2022-02-06 16:14 | PHA.MEDREC ---
Pharmacy Consult ? Medication Reconciliation Pharmacy has completed the medication reconciliation.
[2022-02-06 16:26] LABS: MANUAL DIFF FLAG NO
[2022-02-06 16:28] LABS: Basophils Absolute Auto 0.1 X10*3/uL (0.0-0.2); Basophils Percent Auto 0.7 % (0-2); Eosinophils Absolute Auto 0.1 X10*3/uL (0.0-0.4); Eosinophils Percent Auto 1.3 % (0-4); Hematocrit 45.8 % (42.0-52.0); Hemoglobin 14.7 g/dl (14.0-18.0); Imm Gran Abs Auto 0.06 X10*3/uL (0.00-0.03); Imm Gran Pct Auto 0.6 % (0.0-0.4); Lymphocytes Absolute Auto 3.4 X10*3/uL (1.2-4.9); Lymphocytes Percent Auto 35.6 % (20-40); Mean Corpuscular HGB Conc 32.1 g/dl (31.0-36.0); Mean Corpuscular Hemoglobin 28.7 pg (27.0-33.0); Mean Corpuscular Volume 89.5 fL (80.0-98.0); Mean Platelet Volume 9.7 fL (9.4-12.4); Monocytes Absolute Auto 0.6 X10*3/uL (0.1-1.2); Monocytes Percent Auto 6.3 % (2-11); Neutrophils Absolute Auto 5.2 x10*3/uL (2.0-8.3); Neutrophils Percent Auto 55.5 % (45-73); Platelet Count 260 X10*3/uL (160-400); Red Blood Count 5.12 X10*6/uL (4.60-5.80); Red Cell Distribution Width 13.8 % (11.0-16.0); White Blood Count 9.4 X10*3/uL (4.8-10.8)
[2022-02-06 16:34] LABS: INTERNATIONAL NORM RATIO 1.5 (0.9-1.1)
[2022-02-06 16:36] LABS: Ammonia 25 umol/L (13-55)
[2022-02-06 16:52] LABS: Alanine Aminotransferase 24 U/L (0-40); Albumin Level 4.3 g/dL (3.5-5.0); Alkaline Phosphatase 132 U/L (39-117); Anion Gap 16 (12-20); Aspartate Amino Transferase 20 U/L (5-37); Bilirubin Total 0.8 mg/dL (0.0-1.0); Blood Urea Nitrogen 10 mg/dL (9-16); Calcium 9.3 mg/dL (8.4-10.2); Carbon Dioxide 28 mmol/L (22-29); Chloride 104 mmol/L (96-108); Creatinine Clr Calc Pharmacy 101.4; Estimated Glomerular Filt Rate > 60; Ethanol < 10 mg/dL; Glucose Random 101 mg/dL (60-115); Potassium 3.8 mmol/L (3.3-5.1); Sodium 144 mmol/L (135-145)
--- NOTE | 2022-02-06 18:32 | PC.NURSE ---
PATIENT WAS INC OF LARGE AMOUNT OF STOOL ,CARE GIVEN LINEN CHANGE .
[2022-02-06 18:52] LABS: Appearance Urine Clear; Color Urine Yellow; Glucose Urine UA Negative (Negative); Leukocyte Esterase Urine Negative (Negative); Nitrite Urine Negative (Negative); PH 5.5 (5.0-9.0); Specific Gravity - Urine 1.025 (1.005-1.025); Urine Blood Negative (Negative); Urine Ketones Negative (Negative); Urine Protein Negative (Neg-Trace)
[2022-02-06 18:59] LABS: Amphetamine Screen Urine Not Detected (Not Detect); Barbiturates, Urine Not Detected (Not Detect); Benzodiazepines Screen Urine Not Detected (Not Detect); Cannabinoid Screen Urine Not Detected (Not Detect); Cocaine Screen Urine Not Detected (Not Detect); Fentanyl, urine POSITIVE (Not Detect); Opiate Screen Urine Not Detected (Not Detect); Phencyclidine Screen Urine Not Detected (Not Detect)
--- NOTE | 2022-02-06 19:14 | PC.NURSE ---
report received from john rn - pt resting comfortably on stretcher. family at bedside. no apparent distress. will continue to monitor
[2022-02-06] MEDS: 0.9 % Sodium Chloride 1,000 ML 999 ML IV (20:22)
[2022-02-06] MEDS: lamoTRIgine 25 MG TABLET PO (20:23)
[2022-02-06] MEDS: levETIRAcetam 500 MG TABLET PO (20:23)
[2022-02-06] MEDS: busPIRone HCl 5 MG TABLET 15 MG PO (20:23)
[2022-02-06] MEDS: Rivaroxaban 20 MG TABLET PO (20:23)
[2022-02-06] MEDS: Atorvastatin Calcium 40 MG TABLET PO (20:23)
[2022-02-06] MEDS: Melatonin 3 MG TABLET 9 MG PO (20:23)
[2022-02-06] MEDS: OLANZapine 5 MG TABLET PO (20:23)
[2022-02-06] MEDS: lamoTRIgine 100 MG TABLET PO (20:23)
[2022-02-06] MEDS: Docusate Sodium 100 MG CAPSULE PO (20:23)
[2022-02-06] MEDS: Mirtazapine 15 MG TABLET PO (20:23)
--- NOTE | 2022-02-06 20:51 | PC.NURSE ---
Patient was inc of urine ,care given ,[place] catheter in place .
[2022-02-07] VITALS (8 sets, daily range): BP systolic 91–116; BP diastolic 67–87; PULSE 76–103; RESP 16–18; TEMP 36.4–36.7; O2SAT 92–96
[2022-02-07] MEDS: Omeprazole 20 MG CAPSULE.DR PO (06:34)
--- NOTE | 2022-02-07 06:50 | PC.NURSE ---
morning medication given. pt cleaned up in bed. new sheets and blankets provided. vital signs updated. call rush within reach
--- NOTE | 2022-02-07 08:00 | PC.NURSE ---
pt a/o x 4 no sob/joseph noted skin pink warm dry speaks in full sentences. lungs - paramjit upper lobes - cta. paramjit lower lobes diminished. abd hard, bs x 4 quads. pt aware of plan of care.
[2022-02-07] MEDS: Midodrine HCl 5 MG TABLET PO ×3 (08:08→17:44)
--- NOTE | 2022-02-07 09:10 | PC.NURSE ---
PT INCONTINENT OF STOOL. PT CLEANED AND BEDDING CHANGED. RN AWARE
[2022-02-07] MEDS: Baclofen 10 MG TABLET PO ×2 (09:47→20:36)
[2022-02-07] MEDS: levETIRAcetam 500 MG TABLET PO ×2 (09:47→20:36)
[2022-02-07] MEDS: Docusate Sodium 100 MG CAPSULE PO (09:47)
[2022-02-07] MEDS: Gabapentin 400 MG CAPSULE PO ×3 (09:47→20:36)
[2022-02-07] MEDS: Sennosides 8.6 MG TABLET PO (09:47)
[2022-02-07] MEDS: busPIRone HCl 5 MG TABLET 15 MG PO ×3 (09:47→20:36)
[2022-02-07] MEDS: Metoprolol Tartrate 50 MG TABLET PO ×2 (09:47→20:35)
[2022-02-07] MEDS: Furosemide 20 MG TABLET PO (09:48)
[2022-02-07] MEDS: Sertraline HCL 50 MG TABLET 150 MG PO (09:48)
[2022-02-07] MEDS: Loratadine 10 MG TABLET PO (09:48)
[2022-02-07] MEDS: LORazepam 0.5 MG TABLET PO (09:48)
[2022-02-07] MEDS: Lactulose 20 GM/30 ML SOLUTION PO (09:49)
[2022-02-07] MEDS: HaloperidoL 1 MG TABLET 2 MG PO ×3 (10:48→20:59)
[2022-02-07] MEDS: Finasteride 5 MG TABLET PO (10:49)
--- NOTE | 2022-02-07 13:20 | MHC.CARE ---
CARE Team met with Pt who continues to deny SI/HI/VH/AH. Pt has been calm and cooperative. No periods of irritably noted. Pt is pending pyschiatric consult regarding treatment and plan of care recommendations.
[2022-02-07] MEDS: Acetaminophen 325 MG TABLET 650 MG PO (14:17)
--- NOTE | 2022-02-07 15:47 | PM.PSYCN ---
History of Present Illness Date of Service: 02/07/22 Chief Complaint: SECTION 12 Reason for Consult: agitation at long term HPI Narrative: per CARE team note of 02/06: CARE Team met with Pt to provide support secondary to presenting to [facility] ED on Section 12 for SI. CARE Team met with Pt who denies current SI/HI/AH/VH.? CARE Team completed collateral contact with Pts long term Staff Singh [phone] and ESTELA Treviño [phone]. They reported over the past few weeks a change in behaviors with increase in paranoia and confusion. Pt recently accused staff of kidnapping home on the way to an appt.? Pt has had behavior outburst and new onset of irritability. Pt has been in this [facility] long term since august of 2021 that is specific for medically complex patients.? Pt group is staff 24hrs with a 4-1 ratios.? 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 She reported if Pt is irritable call his daughter helps de-escalate him. Kamila reported concerns regarding taking Pt home in this current state regarding his frequency of irritably and outburst.? CARE Team informed long term? staff the current plan is upon medical clearance that Pt is going to be seen by psychiatry for treatment recommendation. CARE Team discussed case with YARA Philippe with the plan to have psychiatric consult after Pt is medically clear. pt seen 02/07 by this administrative underwriter. pt calm and cooperative throughout interview, no periods of agitation, aggression, or behavioral dyscontrol. reports he likes the long term where he is currently living and would like to return there [facility]. he reports a predominant mood of anxiety and sometimes yelling out as a means to decrease the anxiety. he reports experiencing a substantial amount of relief when he yells out. he notes that in the ED when he yells out, which he notes he tries not to do too often, there is no substantial reaction ( nothing happens ), but when he yells out at his long term people freak out. he denies any physically violent or assaultive behavior at the long term. both MD and pt note he is bed-bound. he notes the medications he takes can help substantially with his level of anxiety, and when he gets his medications earlier in the day he is more helped. he denies any safety concerns. Past Psychiatric History: h/o TBI. intermittent agitation. 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 Diagnostics Vital Signs (24Hr): Vital Signs - 24 hr 02/06/22 16:34 02/06/22 17:28 02/06/22 20:00 Temperature 97.7 F 98.0 F Pulse Rate 75 71 82 Respiratory Rate 17 16 16 Blood Pressure 101/60 101/65 81/51 L Pulse Oximetry 93 95 94 Oxygen Delivery Method Room Air Nasal Cannula Oxygen Flow Rate 1 02/06/22 20:30 02/06/22 21:52 02/07/22 00:14 Temperature 97.7 F 97.6 F Pulse Rate 87 84 Respiratory Rate 20 16 18 Blood Pressure 98/69 103/58 L 108/87 Pulse Oximetry 98 92 Oxygen Delivery Method Room Air Nasal Cannula Oxygen Flow Rate 2 02/07/22 04:58 02/07/22 05:15 02/07/22 08:00 Temperature 97.9 F Pulse Rate 91 87 Respiratory Rate 16 17 Blood Pressure 95/80 103/71 103/80 Pulse Oximetry 96 95 Oxygen Delivery Method Nasal Cannula Nasal Cannula Oxygen Flow Rate 1 1 02/07/22 09:45 02/07/22 13:31 Temperature 98.0 F Pulse Rate 103 H 76 Respiratory Rate 17 18 Blood Pressure 116/74 104/69 Pulse Oximetry 94 95 Oxygen Delivery Method Nasal Cannula Nasal Cannula Oxygen Flow Rate 1 2 BMI result Body Mass Index 23.1 Labs Results: 02/06/22 16:22 02/06/22 16:22 Labs: Laboratory Results - last 48 hr 02/06/22 02/06/22 02/06/22 16:22 16:22 16:22 WBC 9.4 RBC 5.12 Hgb 14.7 Hct 45.8 MCV 89.5 MCH 28.7 MCHC 32.1 RDW 13.8 Plt Count 260 MPV 9.7 Immature Gran % (Auto) 0.6 H Neut % (Auto) 55.5 Lymph % (Auto) 35.6 Armstrong % (Auto) 6.3 Eos % (Auto) 1.3 Baso % (Auto) 0.7 Lymph # (Auto) 3.4 Armstrong # (Auto) 0.6 Eos # (Auto) 0.1 Baso # (Auto) 0.1 Abs Immat Gran (auto) 0.06 H Absolute Neuts (auto) 5.2 Absolute Nucleated RBC 0.000 Nucleated RBC % (auto) 0.0 PT INR APTT Sodium 144 Potassium 3.8 Chloride 104 Carbon Dioxide 28 Anion Gap 16 BUN 10 Creatinine 0.95 Estim Creat Clear Calc 101.4 Estimated GFR > 60 Random Glucose 101 Calcium 9.3 Total Bilirubin 0.8 AST 20 ALT 24 Alkaline Phosphatase 132 H Ammonia 25 Total Protein 7.0 Albumin 4.3 Urine Color Urine Appearance Urine pH Ur Specific Appling Urine Protein Urine Glucose (UA) Urine Ketones Urine Blood Urine Nitrite Ur Leukocyte Esterase Urine Opiates Screen Urine Fentanyl Screen Ur Barbiturates Screen Ur Phencyclidine Scrn Ur Amphetamines Screen U Benzodiazepines Scrn Urine Cocaine Screen U Marijuana (THC) Screen Ethyl Alcohol < 10 02/06/22 02/06/22 02/06/22 16:22 18:36 18:36 WBC RBC Hgb Hct MCV MCH MCHC RDW Plt Count MPV Immature Gran % (Auto) Neut % (Auto) Lymph % (Auto) Armstrong % (Auto) Eos % (Auto) Baso % (Auto) Lymph # (Auto) Armstrong # (Auto) Eos # (Auto) Baso # (Auto) Abs Immat Gran (auto) Absolute Neuts (auto) Absolute Nucleated RBC Nucleated RBC % (auto) PT 17.0 H INR 1.5 H APTT 42.0 H Sodium Potassium Chloride Carbon Dioxide Anion Gap BUN Creatinine Estim Creat Clear Calc Estimated GFR Random Glucose Calcium Total Bilirubin AST ALT Alkaline Phosphatase Ammonia Total Protein Albumin Urine Color Yellow Urine Appearance Clear Urine pH 5.5 Ur Specific Appling 1.025 Urine Protein Negative Urine Glucose (UA) Negative Urine Ketones Negative Urine Blood Negative Urine Nitrite Negative Ur Leukocyte Esterase Negative Urine Opiates Screen Not Detected Urine Fentanyl Screen POSITIVE H Ur Barbiturates Screen Not Detected Ur Phencyclidine Scrn Not Detected Ur Amphetamines Screen Not Detected U Benzodiazepines Scrn Not Detected Urine Cocaine Screen Not Detected U Marijuana (THC) Screen Not Detected Ethyl Alcohol Imaging Radiology Impressions: ITS Impressions Head CT 02/06/22 16:28 IMPRESSION: 1. There are no acute bleeds or territorial infarcts. No masses are demonstrated. 2. 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 There are gliotic changes in the right centrum semiovale. Mental Status Exam Mental Status Exam Narrative: calm, cooperative, pleasant. adequately dressed and groomed. wears a omer. no PMA/PMR. speech nml rate, amount, loudness, tone, latency. thoughts linear and logical. affect constricted, normo-intense, non-labile. mood anxious. denies SI/HI/AVH. appears cognitively impaired, unable to answer numerous historical questions. Medications Medications Current Medications Artificial Tears (Artificial Tears 15 Ml Drops) 1 drop EYE-BOTH DAILY [facility] Last Admin: 02/07/22 10:49 Dose: Not Given Atorvastatin Calcium (Atorvastatin Calcium 40 Mg Tablet) 40 mg PO BEDTIME [facility] Last Admin: 02/06/22 20:23 Dose: 40 mg Baclofen (Baclofen 10 Mg Tablet) 10 mg PO BID [facility] Last Admin: 02/07/22 09:47 Dose: 10 mg Buspirone HCl (Buspirone Hcl 5 Mg Tablet) 15 mg PO TID [facility] Last Admin: 02/07/22 14:16 Dose: 15 mg Docusate Sodium (Docusate Sodium 100 Mg Capsule) 100 mg PO BID [facility] Last Admin: 02/07/22 09:47 Dose: 100 mg Finasteride (Finasteride 5 Mg Tablet) 5 mg PO DAILY [facility] Last Admin: 02/07/22 10:49 Dose: 5 mg Furosemide (Furosemide 20 Mg Tablet) 20 mg PO DAILY [facility]; Protocol Last Admin: 02/07/22 09:48 Dose: 20 mg Gabapentin (Gabapentin 400 Mg Capsule) 400 mg PO TID [facility] Last Admin: 02/07/22 14:16 Dose: 400 mg Haloperidol (Haloperidol 1 Mg Tablet) 2 mg PO TID [facility] Last Admin: 02/07/22 14:16 Dose: 2 mg Lamotrigine (Lamotrigine 25 Mg Tablet) 25 mg PO BEDTIME [facility] Last Admin: 02/06/22 20:23 Dose: 25 mg Lamotrigine (Lamotrigine 100 Mg Tablet) 100 mg PO BEDTIME [facility] Last Admin: 02/06/22 20:23 Dose: 100 mg Levetiracetam (Levetiracetam 500 Mg Tablet) 500 mg PO BID [facility] Last Admin: 02/07/22 09:47 Dose: 500 mg Loratadine (Loratadine 10 Mg Tablet) 10 mg PO DAILY [facility] Last Admin: 02/07/22 09:48 Dose: 10 mg Lorazepam (Lorazepam 0.5 Mg Tablet) 0.5 mg PO DAILY PRN PRN Reason: Anxiety Lorazepam (Lorazepam 0.5 Mg Tablet) 0.5 mg PO DAILY [facility] Last Admin: 02/07/22 09:48 Dose: 0.5 mg Lorazepam (Lorazepam 1 Mg Tablet) 1 mg PO BEDTIME [facility] Last Admin: 02/06/22 20:29 Dose: Not Given Melatonin (Melatonin 3 Mg Tablet) 9 mg PO BEDTIME [facility] Last Admin: 02/06/22 20:23 Dose: 9 mg Metoprolol Tartrate (Metoprolol Tartrate 50 Mg Tablet) 50 mg PO BID [facility]; Protocol Last Admin: 02/07/22 09:47 Dose: 50 mg Midodrine (Midodrine Hcl 5 Mg Tablet) 5 mg PO TIDWM [facility] Last Admin: 02/07/22 12:11 Dose: 5 mg Mirtazapine (Mirtazapine 15 Mg Tablet) 15 mg PO BEDTIME [facility] Last Admin: 02/06/22 20:23 Dose: 15 mg Olanzapine (Olanzapine 5 Mg Tablet) 5 mg PO BEDTIME [facility] Last Admin: 02/06/22 20:23 Dose: 5 mg Olanzapine (Olanzapine 10 Mg Tablet) 20 mg PO BEDTIME [facility] Last Admin: 02/06/22 22:57 Dose: Not Given Omeprazole (Omeprazole 20 Mg Capsule.) 20 mg PO DAILY@0630 [facility] Last Admin: 02/07/22 06:34 Dose: 20 mg Pharmacy Consult (Consult Rx Perform Med Rec) 1 each MISCELLANE ONCE PRN PRN Reason: Consult order Rivaroxaban (Rivaroxaban 20 Mg Tablet) 20 mg PO DAILY@1700 [facility] Last Admin: 02/06/22 20:23 Dose: 20 mg Sertraline HCl (Sertraline Hcl 50 Mg Tablet) 150 mg PO DAILY [facility] Last Admin: 02/07/22 09:48 Dose: 150 mg Allergies Allergies Allergy/AdvReac Type Severity Reaction Status Date / Time No Known Allergies Allergy Verified 12/15/21 14:53 Assessment & Plan Assessment & Plan (1) Traumatic brain injury: Status: Acute Code(s): S06.9X9A - Unspecified intracranial injury with loss of consciousness of unspecified duration, initial encounter (2) Cognitive disorder: Status: Acute Code(s): F09 - Unspecified mental disorder due to known physiological condition (3) Anxiety disorder: Status: Acute Code(s): F41.9 - Anxiety disorder, unspecified Plan anxiety disorder. spread anxiolytic medications out. change olanzapine from 25 mg QHS to 10/09/14 in order to address chronic anxiety throughout the day. otherwise continue current mgmt. return to long term. I spent __50____ minutes with the patient and/or on the patient floor today, greater than?50% of which was spent counseling/coordinating care.
--- NOTE | 2022-02-07 16:12 | MHC.CARE ---
CARE Team left VM with Kamila from [facility] to discuss discharge planning
--- NOTE | 2022-02-07 16:22 | MHC.CARE ---
VM left with Pts daughter
--- NOTE | 2022-02-07 16:33 | MHC.CARE ---
CARE Team spoke with Pts step daughter Radha who is in agreement with return to [facility]. CARE Team awaiting return call from Kamila regarding return
[2022-02-07] MEDS: Rivaroxaban 20 MG TABLET PO (17:43)
[2022-02-07] MEDS: Morphine Sulfate Immed Release 15 MG TABLET PO (17:44)
[2022-02-07] MEDS: OLANZapine 5 MG TABLET PO (17:44)
--- NOTE | 2022-02-07 18:09 | MHC.CARE ---
CARE Team left follow up VM with ESTELA Treviño regarding discharge- CARE Team verified with senior living that [facility] the point of contact for discharge plan to [facility] living.
--- NOTE | 2022-02-07 19:11 | MHC.CARE ---
[facility] and reviewed plan of care. Plan for Pt to return to [facility] this evening via EMS.
[2022-02-07] MEDS: Melatonin 3 MG TABLET 9 MG PO (20:35)
--- NOTE | 2022-02-07 20:35 | PC.NURSE ---
This US/Pct called [facility] at 2030 to book transport to go back to [facility],spoke with Sue and she stated there are no trucks available and she will try to pass. Rn aware
[2022-02-07] MEDS: lamoTRIgine 25 MG TABLET PO (20:36)
[2022-02-07] MEDS: LORazepam 1 MG TABLET PO (20:36)
[2022-02-07] MEDS: lamoTRIgine 100 MG TABLET PO (20:36)
[2022-02-07] MEDS: Atorvastatin Calcium 40 MG TABLET PO (20:36)
[2022-02-07] MEDS: Mirtazapine 15 MG TABLET PO (20:36)
[2022-02-07] MEDS: OLANZapine 7.5 MG TABLET 15 MG PO (21:00)
[2022-02-08] VITALS: BP 97/71; PULSE 84; O2SAT 93
--- NOTE | 2022-02-08 00:33 | PC.NURSE ---
[facility] called at 0020 for an update on patients transport spoke with Areli she stated they are unable to pass and will have to wait until morning. RN and labor crew supervisor aware.
[2022-02-08 06:00] VITALS: BP 87/65; PULSE 58; O2SAT 94
[2022-02-08] MEDS: Omeprazole 20 MG CAPSULE.DR PO (06:17)
[2022-02-08] MEDS: Furosemide 20 MG TABLET PO (08:20)
[2022-02-08] MEDS: Metoprolol Tartrate 50 MG TABLET PO (08:20)
[2022-02-08] MEDS: busPIRone HCl 5 MG TABLET 15 MG PO (08:20)
[2022-02-08] MEDS: Gabapentin 400 MG CAPSULE PO (08:20)
[2022-02-08] MEDS: levETIRAcetam 500 MG TABLET PO (08:20)
[2022-02-08] MEDS: Docusate Sodium 100 MG CAPSULE PO (08:20)
[2022-02-08] MEDS: Sertraline HCL 50 MG TABLET 150 MG PO (08:20)
[2022-02-08] MEDS: Loratadine 10 MG TABLET PO (08:21)
[2022-02-08] MEDS: Artificial Tears 15 ML DROPS 1 DROP EYE-BOTH (08:21)
[2022-02-08] MEDS: LORazepam 0.5 MG TABLET PO (08:21)
[2022-02-08] MEDS: Midodrine HCl 5 MG TABLET PO ×2 (08:21→11:11)
[2022-02-08] MEDS: OLANZapine 5 MG TABLET PO (08:21)
[2022-02-08] MEDS: Baclofen 10 MG TABLET PO (08:21)
[2022-02-08 08:30] VITALS: BP 91/73; PULSE 79; RESP 20; O2SAT 94
[2022-02-08] MEDS: Finasteride 5 MG TABLET PO (08:47)
[2022-02-08] MEDS: HaloperidoL 1 MG TABLET 2 MG PO (08:47)
--- NOTE | 2022-02-08 09:02 | MHC.CARE ---
CARE Team contacts ED Complaint Evaluation Supervisor to follow up on this pt as he was unable to be transported yesterday due to the lack of availability of an ambulance, ED US advised CARE that he has a projected departure time of around noon today.
--- NOTE | 2022-02-08 09:42 | PC.NURSE ---
Pt took morning medications, one at a time, with no issue. Awaiting transport home
== END 2022-02-08 13:46 ==
PROVIDERS: Physician Assistant; Emergency Provider Emergency Medicine
DX: F33.1 Major depressive disorder, recurrent, moderate (principal); R45.851 Suicidal ideations; R51.9 Headache, unspecified; Z87.891 Personal history of nicotine dependence; Z79.899 Other long term (current) drug therapy
CPT/HCPCS: 36415; 70450; 80053; 80307; 81003; 82077; 82140; 85025; 85610; 85730; 93005; 96360; 96361; 99285

== ENCOUNTER 2022-02-28 13:29 | Emergency (ER) | payer MEDICAID, SELFPAY ==
--- NOTE | 2022-02-28 | ECG_ITS ---
Test Reason : CP Blood Pressure : / mmHG Vent. Rate : 084 BPM Atrial Rate : 000 BPM P-R Int : 000 ms QRS Dur : 076 ms QT Int : 354 ms P-R-T Axes : 000 003 049 degrees QTc Int : 418 ms Atrial fibrillation Low voltage QRS Abnormal ECG When compared with ECG of 28-FEB-2022 16:05, No significant change was found Referred By: Camila Campos Electronically Signed By:SANTIAGO ACEVEDO
--- NOTE | ~2022-02-28 | XR_ITS ---
EXAMINATION: PORTABLE CHEST 1 VIEW CLINICAL INFORMATION: hx fluid overload . COMPARISON: 11/15/2021. TECHNIQUE: Portable frontal view of the chest was obtained. FINDINGS: Lungs are mildly hypoexpanded. There is central vascular prominence with indistinctness to the vessels. Cannot exclude tiny layering left effusion with some left basilar atelectasis. Cardiac silhouette remains enlarged similar to the prior study. XR/XR chest 1V IMPRESSION: Enlarged cardiac silhouette with central vascular prominence and some indistinctness to the vessels. This suggests likely fluid overload.
--- NOTE | 2022-02-28 14:07 | ED_ITS ---
HPI - Psych General Chief Complaint: Psychiatric Symptoms Stated Complaint: crisis Time Seen by Provider: 02/28/22 14:01 Source: patient Mode of arrival: ambulatory History of Present Illness HPI Narrative: 57 y/o male with history of COPD on O2, CHF, Afib on Xarelto, CVA with left sided hemiparesis who [facility] for?aggressive behavior, agitation, screaming, throwing items at staff. Patient reports got argumentative with staff member as she kept opening his curtain when he wanted it closed. Patient denies SI/HI. Denies illicit drug/ETOH use, says shortness of breath, chest pain, abdominal pain, nausea/vomiting, pedal edema MD complaint: other Related Data Home Medications Medication Instructions Recorded Confirmed atorvastatin 40 mg tablet 40 mg PO BEDTIME 02/06/22 02/06/22 baclofen 10 mg tablet 10 mg PO BID 02/06/22 02/06/22 buspirone 15 mg tablet 1 tab PO TID 02/06/22 02/06/22 cetirizine 10 mg tablet 10 mg PO DAILY 02/06/22 02/06/22 docusate sodium 100 mg capsule 100 mg PO BID 02/06/22 02/06/22 finasteride 5 mg tablet 5 mg PO DAILY 02/06/22 02/06/22 furosemide 20 mg tablet 1 tab PO DAILY 02/06/22 02/06/22 gabapentin 400 mg capsule 400 mg PO TID 02/06/22 02/06/22 haloperidol 2 mg tablet 1 tab PO TID 02/06/22 02/06/22 lamotrigine 100 mg tablet 100 mg PO BEDTIME 02/06/22 02/06/22 lamotrigine 25 mg tablet (Lamictal) 25 mg PO BEDTIME 02/06/22 02/06/22 levetiracetam 500 mg tablet 500 mg PO BID 02/06/22 02/06/22 lorazepam 0.5 mg tablet (Ativan) 1 tab PO DAILY PRN Anxiety 02/06/22 02/06/22 lorazepam 0.5 mg tablet (Ativan) 1 tab PO QAM 02/06/22 02/06/22 lorazepam 1 mg tablet (Ativan) 1 tab PO BEDTIME 02/06/22 02/06/22 melatonin 10 mg capsule 1 cap PO BEDTIME 02/06/22 02/06/22 metoprolol tartrate 50 mg tablet 50 mg PO BID 02/06/22 02/06/22 midodrine 5 mg tablet 1 tab PO TID 02/06/22 02/06/22 mirtazapine 15 mg tablet (Remeron) 1 tab PO BEDTIME 02/06/22 02/06/22 olanzapine 20 mg tablet (Zyprexa) 1 tab PO BEDTIME 02/06/22 02/06/22 olanzapine 5 mg tablet (Zyprexa) 1 tab PO BEDTIME 02/06/22 02/06/22 pantoprazole 40 mg tablet,delayed 40 mg PO DAILY 02/06/22 02/06/22 release polyvinyl alcohol 1.4 % eye drops 1 drp ophthalmic (eye) DAILY 02/06/22 02/06/22 rivaroxaban 20 mg tablet (Xarelto) 20 mg PO QPM 02/06/22 02/06/22 sertraline 100 mg tablet (Zoloft) 1.5 tab PO QAM 02/06/22 02/06/22 Previous Rx's Medication Instructions Recorded olanzapine 15 mg tablet 15 mg PO BEDTIME 30 days #30 tabs 02/08/22 olanzapine 5 mg tablet 5 mg PO BID 30 days #60 tabs 02/08/22 Allergies Allergy/AdvReac Type Severity Reaction Status Date / Time No Known Allergies Allergy Verified 12/15/21 14:53 Review of Systems Review of Systems: Constitutional: No Fever, No Chills, No Fatigue, No Malaise ENT/Mouth: No Ear Pain, No Nasal Congestion, No sore throat, No Rhinorrhea, No Swallowing Difficulty Eyes: No Eye Pain, No Swelling, No Redness Cardiovascular: No Chest Pain, No SOB, No Edema, No Palpitations Respiratory: No Cough, No Sputum, No Dyspnea Gastrointestinal: No Nausea, No Vomiting, No Diarrhea, No Abdominal pain Genitourinary: No Dysuria, No Urinary Frequency, No Flank Pain, No Urinary Flow Changes Musculoskeletal: No joint pain, No Myalgias, No Joint Swelling Skin: No Skin Lesions, No rash Neuro: No Weakness, No Numbness, No Dizziness, No Headache Psych: No Anxiety/Panic, No Depression, No SI/HI/AH/VH, + Social Issues Yes all other systems are reviewed and are negative Constitutional: Constitutional: Reports as per [facility] Past Medical History Attestation statement: The following information was validated with the patient. Social History Social History Alcohol intake: never Patient Tobacco Use Status: Former Tobacco user Advance Directives: Yes Advance Directives on File: Yes Advance Directives Date on File: 11/11/21 Physical Exam Vital Signs: Vital Signs: Last Vital Signs Pulse 75 02/28/22 16:00 Resp 18 02/28/22 16:00 BP 104/76 02/28/22 16:00 Pulse Ox 94 02/28/22 16:00 O2 Del Method 02/28/22 16:00 O2 Flow Rate 3 02/28/22 16:00 Oxygen Flow Rate 3 02/28/22 14:19 BMI result Body Mass Index 25.7 Const: General: cooperative, healthy appearing and no acute distress Orientation/consciousness: patient oriented x3 Limitations: no limitations HEENT: Head: Yes normal to inspection and Yes atraumatic Ears: hearing grossly normal bilaterally General nose exam: Normal external nose present Face and sinus: Yes normal facial exam Eyes: General: appearance normal, both eyes and all related structures EOM: EOMs intact bilaterally Neck: Neck: Yes normal visual inspection and Yes no meningeal signs Resp: Effort & Inspection: normal respiratory effort and no respiratory distress Auscultation: clear to auscultation bilaterally, no crackles, no rales, no rhonchi and no wheezes Cardio: Rate: regular rate Heart sounds: S1 normal heart sound present and S2 normal heart sound present GI: Inspection: Yes normal to inspection Palpation (GI): Soft to palpation, nontender, no guarding and not rigid Skin: Rashes: no rashes Wounds: no wounds Neuro: General: patient oriented x3, tone normal and no meningeal signs Gait exam (Neuro): Normal gait present Extrem: General: Yes normal to inspection, Yes no pedal edema and Yes no calf tenderness Psych: Appearance: grossly normal and well kempt Mental Status: mental status grossly normal Speech and movement: Normal speech and movement present Course Course Course Narrative: -3455--XR chest 1V IMPRESSION: Enlarged cardiac silhouette with central vascular prominence and some indistinctness to the vessels. This suggests likely fluid overload. > 40 mg of IV Lasix ordered. Clinically no evidence of CHF, satting 95% on baseline O2, no pedal edema. When compared to prior x-ray's appears unchanged. Will increase Lasix to 40 mg daily for the next 5 days -1649--no leukocytosis. BNP 23. Labs otherwise unremarkable. Patient is medically cleared for CARE team evaluation. -Physician observation initiated at 18:20 -1999--patient was evaluated by CARE team and received push back from [facility], recommend psych consult 2100-- ED care transferred to Dr. Mahoney pending Psych consult MDM - Psych MDM Narrative Medical decision making narrative: 57 y/o male with history of COPD on O2, CHF, Afib on Xarelto, CVA with left sided hemiparesis who presents [facility] for?aggressive behavior, agitation, screaming, throwing items at staff. On exam vital signs stable, NAD, nontoxic appearing, Lungs CTA, patient offers no complaints at pr esent, states does not get along with specific staff member that set him off. Will obtain EKG, labs, CXR, and CARE Team consult. Differential Diagnosis Differential diagnosis: Likely mood disorder Medical Records Attestation: I reviewed the patient's medical records. Lab Data Attestation: I reviewed the patient's lab results. Result diagrams: 02/28/22 15:59 02/28/22 15:59 Labs: Lab Results 02/28/22 02/28/22 02/28/22 Range/Units 15:59 15:59 15:59 WBC 9.4 (4.8-10.8) X10*3/uL RBC 5.07 (4.60-5.80) X10*6/uL Hgb 14.7 (14.0-18.0) g/dl Hct 45.1 (42.0-52.0) % MCV 89.0 (80.0-98.0) fL MCH 29.0 (27.0-33.0) pg MCHC 32.6 (31.0-36.0) g/dl RDW 14.4 (11.0-16.0) % Plt Count 265 (160-400) X10*3/uL MPV 9.7 (9.4-12.4) fL Immature Gran % (Auto) 0.9 H (0.0-0.4) % Neut % (Auto) 53.1 (45-73) % Lymph % (Auto) 37.5 (20-40) % [place] % (Auto) 6.7 (2-11) % Eos % (Auto) 1.2 (0-4) % Baso % (Auto) 0.6 (0-2) % Lymph # (Auto) 3.5 (1.2-4.9) X10*3/uL [place] # (Auto) 0.6 (0.1-1.2) X10*3/uL Eos # (Auto) 0.1 (0.0-0.4) X10*3/uL Baso # (Auto) 0.1 (0.0-0.2) X10*3/uL Abs Immat Gran (auto) 0.08 H (0.00-0.03) X10*3/uL Absolute Neuts (auto) 5.0 (2.0-8.3) x10*3/uL Absolute Nucleated RBC 0.000 (0.0-0.012) X10*3/uL Nucleated RBC % (auto) 0.0 (0.0-0.2) /100WBC Sodium 142 (135-145) mmol/L Potassium 4.5 (3.3-5.1) mmol/L Chloride 101 (96-108) mmol/L Carbon Dioxide 28 (22-29) mmol/L Anion Gap 18 (12-20) BUN 10 (9-16) mg/dL Creatinine 0.85 (0.5-1.4) mg/dL Estim Creat Clear Calc 107.7 Estimated GFR > 60 Random Glucose 98 (60-115) mg/dL Calcium 9.5 (8.4-10.2) mg/dL Magnesium 2.2 (1.6-2.6) mg/dL Total Bilirubin 0.5 (0.0-1.0) mg/dL Direct Bilirubin 0.3 (0.0-0.5) mg/dL AST 21 (5-37) U/L ALT 35 (0-40) U/L Alkaline Phosphatase 146 H (39-117) U/L B-Natriuretic Peptide (<100) pg/mL Total Protein 7.1 (6.5-8.0) g/dL Albumin 4.5 (3.5-5.0) g/dL Urine Color Urine Appearance Urine pH (5.0-9.0) Ur Specific [place] (1.005-1.025) Urine Protein (Neg-Trace) mg/dL Urine Glucose (UA) (Negative) mg/dL Urine Ketones (Negative) mg/dL Urine Blood (Negative) Urine Nitrite (Negative) Ur Leukocyte Esterase (Negative) Urine Opiates Screen (Not Detect) Urine Fentanyl Screen (Not Detect) Ur Barbiturates Screen (Not Detect) Ur Phencyclidine Scrn (Not Detect) Ur Amphetamines Screen (Not Detect) U Benzodiazepines Scrn (Not Detect) Urine Cocaine Screen (Not Detect) U Marijuana (THC) Screen (Not Detect) COVID-19 (ILIANA) Negative (Negative) COVID-19 Clin Com See Note 02/28/22 02/28/22 02/28/22 Range/Units 16:03 17:33 17:33 WBC (4.8-10.8) X10*3/uL RBC (4.60-5.80) X10*6/uL Hgb (14.0-18.0) g/dl Hct (42.0-52.0) % MCV (80.0-98.0) fL MCH (27.0-33.0) pg MCHC (31.0-36.0) g/dl RDW (11.0-16.0) % Plt Count (160-400) X10*3/uL MPV (9.4-12.4) fL Immature Gran % (Auto) (0.0-0.4) % Neut % (Auto) (45-73) % Lymph % (Auto) (20-40) % [place] % (Auto) (2-11) % Eos % (Auto) (0-4) % Baso % (Auto) (0-2) % Lymph # (Auto) (1.2-4.9) X10*3/uL [place] # (Auto) (0.1-1.2) X10*3/uL Eos # (Auto) (0.0-0.4) X10*3/uL Baso # (Auto) (0.0-0.2) X10*3/uL Abs Immat Gran (auto) (0.00-0.03) X10*3/uL Absolute Neuts (auto) (2.0-8.3) x10*3/uL Absolute Nucleated RBC (0.0-0.012) X10*3/uL Nucleated RBC % (auto) (0.0-0.2) /100WBC Sodium (135-145) mmol/L Potassium (3.3-5.1) mmol/L Chloride (96-108) mmol/L Carbon Dioxide (22-29) mmol/L Anion Gap (12-20) BUN (9-16) mg/dL Creatinine (0.5-1.4) mg/dL Estim Creat Clear Calc Estimated GFR Random Glucose (60-115) mg/dL Calcium (8.4-10.2) mg/dL Magnesium (1.6-2.6) mg/dL Total Bilirubin (0.0-1.0) mg/dL Direct Bilirubin (0.0-0.5) mg/dL AST (5-37) U/L ALT (0-40) U/L Alkaline Phosphatase (39-117) U/L B-Natriuretic Peptide 23 (<100) pg/mL Total Protein (6.5-8.0) g/dL Albumin (3.5-5.0) g/dL Urine Color Yellow Urine Appearance Clear Urine pH 6.5 (5.0-9.0) Ur Specific [place] 1.010 (1.005-1.025) Urine Protein Negative (Neg-Trace) mg/dL Urine Glucose (UA) Negative (Negative) mg/dL Urine Ketones Negative (Negative) mg/dL Urine Blood Negative (Negative) Urine Nitrite Negative (Negative) Ur Leukocyte Esterase Negative (Negative) Urine Opiates Screen Not Detected (Not Detect) Urine Fentanyl Screen Not Detected (Not Detect) Ur Barbiturates Screen Not Detected (Not Detect) Ur Phencyclidine Scrn Not Detected (Not Detect) Ur Amphetamines Screen Not Detected (Not Detect) U Benzodiazepines Scrn Not Detected (Not Detect) Urine Cocaine Screen Not Detected (Not Detect) U Marijuana (THC) Screen Not Detected (Not Detect) COVID-19 (ILIANA) (Negative) COVID-19 Clin Com Discharge Plan Discharge Clinical Impression: Aggressive behavior, Chronic CHF Patient Disposition: Still a Patient Prescriptions: No Action atorvastatin 40 mg Tablet 40 mg PO BEDTIME cetirizine 10 mg Tablet 10 mg PO DAILY levetiracetam 500 mg Tablet 500 mg PO BID polyvinyl alcohol [Lubricant Eye (polyv alcohol)] 1.4 % Drops 1 drp OPHTHALMIC (EYE) DAILY gabapentin 400 mg Capsule 400 mg PO TID sertraline [Zoloft] 100 mg tablet 1.5 tab PO QAM olanzapine [Zyprexa] 5 mg tablet 1 tab PO BEDTIME midodrine 5 mg tablet 1 tab PO TID lamotrigine [Lamictal] 25 mg Tablet 25 mg PO BEDTIME lorazepam [Ativan] 0.5 mg tablet 1 tab PO DAILY PRN (Reason: Anxiety) lorazepam [Ativan] 0.5 mg tablet 1 tab PO QAM baclofen 10 mg Tablet 10 mg PO BID pantoprazole 40 mg Tablet,Delayed Release (Dr/Ec) 40 mg PO DAILY metoprolol tartrate 50 mg Tablet 50 mg PO BID docusate sodium 100 mg Capsule 100 mg PO BID furosemide 20 mg tablet 1 tab PO DAILY mirtazapine [Remeron] 15 mg tablet 1 tab PO BEDTIME lorazepam [Ativan] 1 mg tablet 1 tab PO BEDTIME haloperidol 2 mg tablet 1 tab PO TID olanzapine [Zyprexa] 20 mg tablet 1 tab PO BEDTIME lamotrigine 100 mg Tablet 100 mg PO BEDTIME finasteride 5 mg Tablet 5 mg PO DAILY buspirone 15 mg tablet 1 tab PO TID Xarelto 20 mg Tablet 20 mg PO QPM Rx Instructions: must administer with evening meal melatonin 10 mg capsule 1 cap PO BEDTIME olanzapine 5 mg tablet 5 mg PO BID 30 Days Qty: 60 0RF olanzapine 15 mg tablet 15 mg PO BEDTIME 30 Days Qty: 30 0RF
[2022-02-28 14:12] VITALS: BP 108/74; PULSE 84; O2SAT 95
--- NOTE | 2022-02-28 14:12 | ECG_ITS ---
Test Reason : RUTINE Blood Pressure : / mmHG Vent. Rate : 076 BPM Atrial Rate : 000 BPM P-R Int : 000 ms QRS Dur : 078 ms QT Int : 380 ms P-R-T Axes : 000 008 057 degrees QTc Int : 427 ms Atrial fibrillation Low voltage QRS Cannot rule out Anterior infarct , age undetermined Abnormal ECG When compared with ECG of 06-FEB-2022 14:12, No significant change was found Referred By: Camila Campos Electronically Signed By:SANTIAGO ACEVEDO
[2022-02-28 14:19] VITALS: BP 102/75; PULSE 75; RESP 20; O2SAT 94; BMI 25.7
--- NOTE | 2022-02-28 14:47 | PC.NURSE ---
ekg attempted. patient refused. RN made aware of refusal.
--- NOTE | 2022-02-28 14:49 | PC.NURSE ---
patient refuse lab work. rn made aware
[2022-02-28 16:00] VITALS: BP 104/76; PULSE 75; RESP 18; O2SAT 94
[2022-02-28 16:03] LABS: MANUAL DIFF FLAG NO
[2022-02-28 16:06] LABS: Basophils Absolute Auto 0.1 X10*3/uL (0.0-0.2); Basophils Percent Auto 0.6 % (0-2); Eosinophils Absolute Auto 0.1 X10*3/uL (0.0-0.4); Eosinophils Percent Auto 1.2 % (0-4); Hematocrit 45.1 % (42.0-52.0); Hemoglobin 14.7 g/dl (14.0-18.0); Imm Gran Abs Auto 0.08 X10*3/uL (0.00-0.03); Imm Gran Pct Auto 0.9 % (0.0-0.4); Lymphocytes Absolute Auto 3.5 X10*3/uL (1.2-4.9); Lymphocytes Percent Auto 37.5 % (20-40); Mean Corpuscular HGB Conc 32.6 g/dl (31.0-36.0); Mean Platelet Volume 9.7 fL (9.4-12.4); Monocytes Absolute Auto 0.6 X10*3/uL (0.1-1.2); Monocytes Percent Auto 6.7 % (2-11); Neutrophils Percent Auto 53.1 % (45-73); Platelet Count 265 X10*3/uL (160-400); Red Blood Count 5.07 X10*6/uL (4.60-5.80); Red Cell Distribution Width 14.4 % (11.0-16.0); White Blood Count 9.4 X10*3/uL (4.8-10.8)
[2022-02-28 16:21] LABS: COVID-19 Test Negative (Negative); IDNOW Serial# 55D5AD1C
[2022-02-28 16:25] LABS: Alanine Aminotransferase 35 U/L (0-40); Albumin Level 4.5 g/dL (3.5-5.0); Alkaline Phosphatase 146 U/L (39-117); Anion Gap 18 (12-20); Aspartate Amino Transferase 21 U/L (5-37); Bilirubin Direct 0.3 mg/dL (0.0-0.5); Bilirubin Total 0.5 mg/dL (0.0-1.0); Blood Urea Nitrogen 10 mg/dL (9-16); Calcium 9.5 mg/dL (8.4-10.2); Carbon Dioxide 28 mmol/L (22-29); Chloride 101 mmol/L (96-108); Creatinine Clr Calc Pharmacy 107.7; Estimated Glomerular Filt Rate > 60; Glucose Random 98 mg/dL (60-115); Magnesium 2.2 mg/dL (1.6-2.6); Potassium 4.5 mmol/L (3.3-5.1); Sodium 142 mmol/L (135-145); Total Protein 7.1 g/dL (6.5-8.0)
[2022-02-28] MEDS: Furosemide 40 MG/4 ML VIAL IVPUSH (16:26)
[2022-02-28 16:36] LABS: B Type Natriuretic Peptide 23 pg/mL (<100)
--- NOTE | 2022-02-28 16:48 | PC.NURSE ---
PT calm, cooperative. Dines SI/HI at this time. Denies pain. PT resting quietly. IV Lasix given, condom cath applied.
[2022-02-28 17:49] LABS: Appearance Urine Clear; Color Urine Yellow; Glucose Urine UA Negative (Negative); Leukocyte Esterase Urine Negative (Negative); Nitrite Urine Negative (Negative); PH 6.5 (5.0-9.0); Urine Blood Negative (Negative); Urine Ketones Negative (Negative); Urine Protein Negative (Neg-Trace)
[2022-02-28 18:04] LABS: Amphetamine Screen Urine Not Detected (Not Detect); Barbiturates, Urine Not Detected (Not Detect); Benzodiazepines Screen Urine Not Detected (Not Detect); Cannabinoid Screen Urine Not Detected (Not Detect); Cocaine Screen Urine Not Detected (Not Detect); Fentanyl, urine Not Detected (Not Detect); Opiate Screen Urine Not Detected (Not Detect); Phencyclidine Screen Urine Not Detected (Not Detect)
--- NOTE | 2022-02-28 19:33 | MHC.CARE ---
Pt is a 57 year old [place]i speaking male that arrived [place] [facility] [place] ambulance from [facility] for aggressive behavior, agitation, screaming, throwing items at staff. Pt denied throwing items to staff and confirmed he was yelling at the staff because they refused to put on the nasal cannula. Pt stated he will return to the [facility] only if he receives tramadol as it helps him calm down. Pt denied SI/HI/AVH. Care Team spoke to [facility] staff Geovanni and she reported pt has behavioral issues. She reported pt is combative, verbally aggressive, and is not becoming physically abusive. Care Team spoke to [employer] statistical programmer / real estate portfolio manager Kamila Cisneros and she reported she will not take pt back due to his behavior. She stated she will follow up tomorrow 03/01/22 around 10 am. Plan for Care Team to follow up with psychiatry to review case.
[2022-02-28] MEDS: Acetaminophen 325 MG TABLET 650 MG PO (19:48)
[2022-02-28 22:01] VITALS: PULSE 86; RESP 17; O2SAT 94
[2022-02-28] MEDS: LORazepam 1 MG TABLET PO (23:18)
[2022-02-28] MEDS: Melatonin 3 MG TABLET 6 MG PO (23:19)
[2022-03-01] VITALS: BP 136/76; PULSE 82; RESP 19; O2SAT 95
[2022-03-01 01:59] VITALS: BP 136/73; PULSE 66; RESP 18; O2SAT 96
[2022-03-01 07:47] VITALS: PULSE 105; RESP 19; O2SAT 94
[2022-03-01] MEDS: busPIRone HCl 5 MG TABLET 15 MG PO ×3 (09:03→20:56)
[2022-03-01] MEDS: levETIRAcetam 500 MG TABLET PO ×2 (09:03→20:57)
[2022-03-01] MEDS: Sertraline HCL 50 MG TABLET 150 MG PO (09:03)
[2022-03-01] MEDS: Omeprazole 20 MG CAPSULE.DR PO (09:03)
[2022-03-01] MEDS: Gabapentin 400 MG CAPSULE PO ×3 (09:03→20:56)
[2022-03-01 09:04] VITALS: BP 112/76; PULSE 112
[2022-03-01] MEDS: Baclofen 10 MG TABLET PO ×2 (09:04→20:56)
[2022-03-01] MEDS: Metoprolol Tartrate 50 MG TABLET PO ×2 (09:04→20:57)
[2022-03-01] MEDS: LORazepam 0.5 MG TABLET PO ×2 (09:04→14:18)
--- NOTE | 2022-03-01 09:17 | PHA.MEDREC ---
Pharmacy Consult ? Medication Reconciliation Pharmacy has completed the medication reconciliation.
--- NOTE | 2022-03-01 12:52 | MHC.CARE ---
9:30 am CARE Team spoke with patient in ED bed 14, he was alert, oriented and engaged. In regards to the incident yesterday at the residential he minimized the event and said it was only a verbal altercation, staff reported he was aggressive and throwing things at them. Patient said that he was upset because his nasal cannula fell to the floor (which it often does) and he needed to ring his rush to get staff as he could not reach it himself and he got upset because it took a long time for her to come and he called the police. Patient stated that he wanted to go home, does not want to be in the hospital. He denied suicidal, homicidal or violence ideation, plan or intention. Discussed alternatives to calling 911 for such situations that could be managed without emergency responders. This patient has been calm and cooperative since arriving at [facility]; is not having an acute psychiatric crisis. call or contact centre manager Psychiatrist consulted and in agreement patient does not meet the criteria for an inpatient psychiatric admission.
--- NOTE | 2022-03-01 13:43 | MHC.CARE ---
Care Team made several attempts to contact pt's [facility]. PT denied SI/HI/AVH and wants to return to the [facility]. The psych consult did not agree with pt being admitted to the inpatient psych unit. RN reported she will contact the house supervisor to discuss transportation for the pt to return to the [facility] as she does not have enough staff at the moment. She then reported she may have staff later today that may be able to transport pt to the [facility]. [facility] will follow up with this appeals writer to discuss transportation.
[2022-03-01] MEDS: OLANZapine 5 MG TABLET PO (14:17)
[2022-03-01] MEDS: HaloperidoL 1 MG TABLET 2 MG PO ×2 (14:18→20:57)
[2022-03-01] MEDS: Acetaminophen 325 MG TABLET 650 MG PO (14:18)
[2022-03-01 14:24] VITALS: BP 126/78; PULSE 77; RESP 18; TEMP 36.9; O2SAT 97
--- NOTE | 2022-03-01 15:51 | MHC.CARE ---
Care Team spoke to multiple staff members in attempts to have patient discharged back to skilled nursing. Calls to skilled nursing [facility] ([phone]) he reported they will not be able to provide transportation as they do not have staff at the moment. This technical writer and editor reiterated is medically and psych cleared and we are unable to hold the pt against his will. he will follow up in an hour.
[2022-03-01] MEDS: Furosemide 20 MG TABLET PO (15:52)
[2022-03-01] MEDS: Rivaroxaban 20 MG TABLET PO (15:52)
--- NOTE | 2022-03-01 16:02 | MHC.CARE ---
Care Team arranged ambulance transportation for the pt to return to the senior living possibly today or tomorrow.
--- NOTE | 2022-03-01 18:49 | PC.NURSE ---
ETA for [facility] is 2200 [facility] will try to pass if they can get an earlier eta from another ambulance company
--- NOTE | 2022-03-01 19:31 | PC.NURSE ---
assumed care of pt at 1900 - report received from Ileana PALMER. pt resting comfortably on stretcher, sitter in place. pt seen by [facility], care team - to be transported back to residential. awaiting ambulance transport.
[2022-03-01] MEDS: Atorvastatin Calcium 40 MG TABLET PO (20:56)
[2022-03-01] MEDS: Melatonin 3 MG TABLET 9 MG PO (20:56)
[2022-03-01] MEDS: lamoTRIgine 25 MG TABLET 125 MG PO (20:56)
[2022-03-01] MEDS: LORazepam 1 MG TABLET PO (20:56)
[2022-03-01] MEDS: Mirtazapine 15 MG TABLET PO (20:56)
[2022-03-01] MEDS: Docusate Sodium 100 MG CAPSULE PO (20:57)
[2022-03-01] MEDS: OLANZapine 7.5 MG TABLET 15 MG PO (21:05)
[2022-03-01 21:22] VITALS: BP 92/59; PULSE 61; O2SAT 95
== END 2022-03-01 22:47 ==
PROVIDERS: Physician Assistant; Emergency Provider Emergency Medicine
DX: R45.6 Violent behavior (principal); I50.9 Heart failure, unspecified; R06.02 Shortness of breath; Z20.822 Contact with and (suspected) exposure to COVID-19; I48.20 Chronic atrial fibrillation, unspecified; J44.9 Chronic obstructive pulmonary disease, unspecified; Z99.81 Dependence on supplemental oxygen; Z87.891 Personal history of nicotine dependence; Z79.01 Long term (current) use of anticoagulants; Z86.73 Personal history of transient ischemic attack (TIA), and cerebral infarction without residual deficits; Z79.02 Long term (current) use of antithrombotics/antiplatelets; Z79.899 Other long term (current) drug therapy
CPT/HCPCS: 36415; 71045; 80048; 80076; 80307; 81003; 83735; 83880; 85025; 87635; 93005; 96374; 99285; J1940

== ENCOUNTER 2022-03-21 13:58 | Emergency (ER) | payer MEDICAID, SELFPAY ==
--- NOTE | ~2022-03-21 | CT_ITS ---
EXAMINATION: CT CHEST WITHOUT CONTRAST CLINICAL INFORMATION: Question pneumonia, chest pain COMPARISON: Same-day chest radiographs. TECHNIQUE: Multidetector volumetric CT imaging of the chest was done. Axial MIP volume rendering provided. Sagittal and coronal reformatted images were obtained. This CT examination was performed using dose optimization techniques as appropriate, variously including the following: *Automated exposure control *Adjustment of mA and/or kV according to patient size (this includes techniques or standardized protocols for targeted exams where dose is matched to indication/reason for exam; i.e. extremities or head) *Use of iterative reconstruction technique DLP: 482 mGy-cm FINDINGS: CHEST WALL/AXILLA: No axillary lymphadenopathy. Trace symmetric gynecomastia. LUNGS: Moderate centrilobular emphysema with bandlike pleural parenchymal opacities morphologically favored to reflect scarring. Significant motion degradation limits evaluation. Mild diffuse bronchial wall thickening suggesting airways inflammation. Mosaic attenuation which can be seen in the setting of small airways or small vessel disease. MEDIASTINUM: Heart is normal in size. No mediastinal lymphadenopathy. Lack of intravenous contrast limits assessment for hilar adenopathy. CORONARY ARTERY CALCIFICATION: Coronary artery calcification is present. PLEURA: There is no pleural effusion. UPPER ABDOMEN: Hypoattenuating hepatic parenchyma compatible with hepatic steatosis. Few prominent periportal nodes which may be reactive. OSSEOUS STRUCTURES: Unremarkable. CT/CT chest wo IV con IMPRESSION: Moderate centrilobular emphysema and bronchial wall thickening suggesting airways inflammation and bandlike pleural parenchymal opacities morphologically favored to reflect scarring. Mosaic attenuation which can be seen in the setting of small airways or small vessel disease. Hepatic steatosis. Coronary artery calcification is present.
--- NOTE | ~2022-03-21 | XR_ITS ---
EXAMINATION: XR CHEST CLINICAL INFORMATION: Chest pain and shortness of breath COMPARISON: 02/29/2020 TECHNIQUE: Frontal view of the chest was obtained. FINDINGS: Low lung volumes. Overall, the extent of parenchymal disease left mid to lower lung zones appear similar consistent with presumably persistent infiltrate. No overt CHF on current study. Small left-sided pleural effusion suspected. XR/XR chest 1V IMPRESSION: Findings favor left-sided pneumonia with small parapneumonic effusion. Correlate clinically. Limited expiratory portable exam.
--- NOTE | ~2022-03-21 | XR_ITS ---
EXAMINATION: XR chest 1V CLINICAL INFORMATION: Reason for Exam lateral view COMPARISON: Chest radiograph 03/21/2022 TECHNIQUE: One view of the chest XR/XR chest 1V FINDINGS/IMPRESSION: Limited single lateral view is essentially of nondiagnostic quality due to patient positioning, as the lungs are nearly completely obscured.
--- NOTE | ~2022-03-21 | CT_ITS ---
EXAMINATION: CT ABDOMEN AND PELVIS WITH CONTRAST CLINICAL INFORMATION: Abdominal pain and distention COMPARISON: None TECHNIQUE: Multidetector volumetric images were obtained from the superior aspect of the liver through the pubic symphysis following administration 85 mL of Omnipaque 350 intravenous contrast. Sagittal and coronal reformatted images were obtained on the technologist's workstation. Oral contrast: No This CT examination was performed using dose optimization techniques as appropriate, variously including the following: *Automated exposure control *Adjustment of mA and/or kV according to patient size (this includes techniques or standardized protocols for targeted exams where dose is matched to indication/reason for exam; i.e. extremities or head) *Use of iterative reconstruction technique DLP: 1223 mGy-cm FINDINGS: LUNG BASES: Trace right pleural effusion. Respiratory motion the lung bases limits evaluation. Bibasilar atelectasis. ABDOMINAL AND PELVIC WALL: Unremarkable. LIVER AND BILIARY TREE: Hypoattenuating hepatic parenchyma compatible with hepatic steatosis. Subcentimeter right hepatic lobe hypodensity measuring fluid attenuation likely a small cyst. GALLBLADDER: Unremarkable. PANCREAS: Unremarkable. SPLEEN: Unremarkable. ADRENAL GLANDS: Unremarkable. KIDNEYS AND URETERS: Right renal parenchymal cortical scarring. Tiny 8 mm fat-containing right midpole renal lesion compatible with an angiomyolipoma. Additional subcentimeter right renal hypodensity too small to characterize. GASTROINTESTINAL TRACT: Colonic diverticulosis without evidence of diverticulitis. Normal appendix. VASCULAR: Unremarkable. LYMPH NODES/PERITONEUM: Few prominent collin hepatic nodes not pathologically enlarged may be reactive in the setting of underlying liver disease. Circumscribed fat containing lesions in the right and left pelvis may reflect sequelae of prior omental infarct, with no cookie surrounding inflammatory changes to suggest acuity. FREE FLUID: None. BLADDER: Urinary bladder is mildly thick-walled with minimal infiltration of the perivesicular fat. PELVIC VISCERA: Unremarkable. OSSEOUS STRUCTURES: Unremarkable. CT/CT abdomen pelvis w IV con IMPRESSION: Urinary bladder is mildly thick-walled with minimal infiltration of the perivesicular fat. Consider correlation with symptoms of cystitis. Hepatic steatosis. Circumscribed fat containing lesions in the right and left pelvis may reflect sequelae of prior omental infarct, with no cookie surrounding inflammatory changes to suggest acuity. Tiny 8 mm fat-containing right midpole renal lesion compatible with an angiomyolipoma. Trace right pleural effusion.
[2022-03-21 14:16] VITALS: BP 119/71; BP 97/71; PULSE 66; PULSE 69; RESP 20; TEMP 36.6; O2SAT 93; O2SAT 95; BMI 26.9
--- NOTE | 2022-03-21 14:16 | ECG_ITS ---
Test Reason : CHEST PAIN Blood Pressure : / mmHG Vent. Rate : 079 BPM Atrial Rate : 000 BPM P-R Int : 000 ms QRS Dur : 076 ms QT Int : 372 ms P-R-T Axes : 000 000 048 degrees QTc Int : 426 ms Atrial fibrillation with premature ventricular or aberrantly conducted complexes Low voltage QRS Intra-ventricular conduction delay Abnormal ECG When compared with ECG of 28-FEB-2022 20:58, No significant changes seen Referred By: Generic ED Physician Electronically Signed By:PAMELA BUCK MD
--- NOTE | 2022-03-21 14:54 | PC.NURSE ---
[phone] richard vernon RN at [facility]
[2022-03-21 15:17] LABS: MANUAL DIFF FLAG NO
[2022-03-21 15:20] LABS: Basophils Absolute Auto 0.1 X10*3/uL (0.0-0.2); Basophils Percent Auto 0.7 % (0-2); Eosinophils Absolute Auto 0.1 X10*3/uL (0.0-0.4); Eosinophils Percent Auto 1.2 % (0-4); Hematocrit 45.3 % (42.0-52.0); Hemoglobin 14.8 g/dl (14.0-18.0); Imm Gran Abs Auto 0.07 X10*3/uL (0.00-0.03); Imm Gran Pct Auto 0.7 % (0.0-0.4); Lymphocytes Absolute Auto 3.9 X10*3/uL (1.2-4.9); Lymphocytes Percent Auto 40.8 % (20-40); Mean Corpuscular HGB Conc 32.7 g/dl (31.0-36.0); Mean Corpuscular Hemoglobin 29.4 pg (27.0-33.0); Mean Corpuscular Volume 89.9 fL (80.0-98.0); Mean Platelet Volume 9.7 fL (9.4-12.4); Monocytes Absolute Auto 0.6 X10*3/uL (0.1-1.2); Monocytes Percent Auto 5.8 % (2-11); Neutrophils Absolute Auto 4.8 x10*3/uL (2.0-8.3); Neutrophils Percent Auto 50.8 % (45-73); Platelet Count 262 X10*3/uL (160-400); Red Blood Count 5.04 X10*6/uL (4.60-5.80); Red Cell Distribution Width 14.6 % (11.0-16.0); White Blood Count 9.5 X10*3/uL (4.8-10.8)
--- NOTE | 2022-03-21 15:21 | ED.CHESTPAIN ---
HPI - Chest Pain General Chief Complaint: Chest Pain <YARA Swanson - Last Filed: 03/21/22 17:38> Stated Complaint: chest pain <YRAA Swanson - Last Filed: 03/21/22 17:38> Time Seen by Provider: 03/21/22 14:05 <YARA Swanson - Last Filed: 03/21/22 17:38> Source: patient and EMS <YARA Swanson - Last Filed: 03/21/22 17:38> Mode of arrival: EMS <YARA Swanson - Last Filed: 03/21/22 17:38> History of Present Illness HPI narrative: 57 y/o male with history of COPD on O2, CHF, Afib on Xarelto, CVA with left sided hemiparesis who [facility] ED [facility] complaining of constant chest pressure/tightness since yesterday with associated SOB and abdominal pain/bloating. Pain started at rest. Denies fever, chills, nausea vomiting diarrhea, constipation. Was given 324 mg of nae by EMS. Last BM yesterday. <YAAR Swanson - Last Filed: 03/21/22 17:38> MD complaint: chest pain <YARA Swanson - Last Filed: 03/21/22 17:38> Onset (ago): day(s) <YARA Swanson - Last Filed: 03/21/22 17:38> Related Data Home Medications: Home Medications Medication Instructions Recorded Confirmed atorvastatin 40 mg tablet 40 mg PO BEDTIME 02/28/22 02/28/22 baclofen 10 mg tablet 10 mg PO BID 02/28/22 02/28/22 buspirone 15 mg tablet 1 tab PO TID 02/28/22 02/28/22 gabapentin 400 mg capsule 400 mg 3XD 02/28/22 02/28/22 levetiracetam 500 mg tablet 500 mg PO BID 02/28/22 02/28/22 lorazepam 0.5 mg tablet (Ativan) 1 tab PO QAM 02/28/22 02/28/22 lorazepam 1 mg tablet (Ativan) 1 tab PO BEDTIME 02/28/22 02/28/22 melatonin 5 mg capsule 2 cap PO BEDTIME 02/28/22 02/28/22 metoprolol tartrate 50 mg tablet 50 mg PO BID 02/28/22 02/28/22 mirtazapine 15 mg tablet 15 mg PO BEDTIME 02/28/22 02/28/22 olanzapine 15 mg tablet (Zyprexa) 1 tab PO BEDTIME 02/28/22 02/28/22 pantoprazole 40 mg tablet,delayed 40 mg PO DAILY 02/28/22 02/28/22 release sertraline 150 mg capsule 150 mg PO DAILY 02/28/22 02/28/22 cetirizine 10 mg tablet 10 mg PO DAILY 03/01/22 03/01/22 docusate sodium 100 mg capsule 100 mg PO BID 03/01/22 03/01/22 finasteride 5 mg tablet 5 mg PO DAILY 03/01/22 03/01/22 furosemide 20 mg tablet 20 mg PO DAILY 03/01/22 03/01/22 haloperidol 2 mg tablet 1 tab PO TID 03/01/22 03/01/22 lamotrigine 100 mg tablet 125 mg PO BEDTIME 03/01/22 03/01/22 (Lamictal) lorazepam 0.5 mg tablet (Ativan) 1 tab PO BID PRN Anxiety 03/01/22 03/01/22 midodrine 5 mg tablet 1 tab PO TIDAC PRN LOW BLOOD 03/01/22 03/01/22 PRESSURE olanzapine 5 mg tablet (Zyprexa) 5 mg PO BID@0900,1500 03/01/22 03/01/22 rivaroxaban 20 mg tablet (Xarelto) 20 mg PO QPM 03/01/22 03/01/22 Previous Rx's Medication Instructions Recorded furosemide 40 mg tablet (Lasix) 40 mg PO DAILY 4 days #4 tabs 03/01/22 cefuroxime axetil 250 mg tablet 250 mg PO BID 7 days #14 tabs 03/21/22 <YARA Swanson - Last Filed: 03/21/22 17:38> Allergies/Adverse Reactions: Allergies Allergy/AdvReac Type Severity Reaction Status Date / Time No Known Allergies Allergy Verified 12/15/21 14:53 <YARA Swanson - Last Filed: 03/21/22 17:38> Review of Systems Review of Systems: Constitutional: No Fever, No Chills, No Fatigue, No Malaise ENT/Mouth: No Ear Pain, No Nasal Congestion, No sore throat, No Rhinorrhea, No Swallowing Difficulty Eyes: No Eye Pain, No Swelling, No Redness, No Vision Changes Cardiovascular: + Chest Pain, + SOB (chronic), No Dyspnea on Exertion, No Orthopnea, No Edema, No Palpitations Respiratory: No Cough, No Sputum, No Wheezing, No Dyspnea Gastrointestinal: No Nausea, No Vomiting, No Diarrhea, No Constipation, + Abdominal pain Genitourinary: No irregular bleeding, No Dysuria, No Urinary Frequency, No Hematuria, No Urinary Incontinence/retention, No Flank Pain, No Urinary Flow Changes Musculoskeletal: No joint pain, No Myalgias, No Joint Swelling Skin: No Skin Lesions, No rash Neuro: No Weakness, No Numbness, No Dizziness, No Headache <YARA Swanson - Last Filed: 03/21/22 17:38> Yes all other systems are reviewed and are negative <YARA Swanson - Last Filed: 03/21/22 17:38> Constitutional: Constitutional: Reports as per HPI <YARA Swanson - Last Filed: 03/21/22 17:38> PMFSH Past Medical History Attestation statement: The following information was validated with the patient. <YARA Swanson - Last Filed: 03/21/22 17:38> Social History Social History: Social History Alcohol intake: never Patient Tobacco Use Status: Former Tobacco user Advance Directives: No Advance Directives Information Provided: No Advance Directives Date on File: 11/11/21 <YARA Swanson - Last Filed: 03/21/22 17:38> Physical Exam Vital Signs: Vital Signs: Last Vital Signs Temp 97.9 F 03/21/22 14:16 Pulse 69 03/21/22 14:16 Resp 20 03/21/22 14:16 BP 119/71 03/21/22 14:16 Pulse Ox 93 03/21/22 14:16 O2 Del Method 03/21/22 14:16 Oxygen Flow Rate 2.5 03/21/22 14:16 BMI result Body Mass Index 26.9 <YARA Swanson - Last Filed: 03/21/22 17:38> Vital Signs: Last Vital Signs Temp 97.9 F 03/21/22 14:16 Pulse 69 03/21/22 14:16 Resp 20 03/21/22 14:16 BP 119/71 03/21/22 14:16 Pulse Ox 93 03/21/22 14:16 O2 Del Method 03/21/22 14:16 Oxygen Flow Rate 2.5 03/21/22 14:16 BMI result Body Mass Index 26.9 <Yeni L[place]igua [place] - Last Filed: 03/21/22 21:06> Const: General: cooperative, healthy appearing and no acute distress <YARA Swanson - Last Filed: 03/21/22 17:38> Orientation/consciousness: patient oriented x3 <YARA Swanson - Last Filed: 03/21/22 17:38> Limitations: no limitations <YARA Swanson - Last Filed: 03/21/22 17:38> HEENT: Head: Yes normal to inspection and Yes atraumatic <YARA Swanson - Last Filed: 03/21/22 17:38> Ears: hearing grossly normal bilaterally <YARA Swanson - Last Filed: 03/21/22 17:38> General nose exam: Normal external nose present <YARA Swanson - Last Filed: 03/21/22 17:38> Face and sinus: Yes normal facial exam <YARA Swanson - Last Filed: 03/21/22 17:38> Eyes: General: appearance normal, both eyes and all related structures <YARA Swanson - Last Filed: 03/21/22 17:38> EOM: EOMs intact bilaterally <YARA Swanson - Last Filed: 03/21/22 17:38> Neck: Neck: Yes normal visual inspection and Yes no meningeal signs <YARA Swanson - Last Filed: 03/21/22 17:38> Chest: Chest palpation & inspection: normal inspection of the chest <YARA Swanson - Last Filed: 03/21/22 17:38> Resp: Effort & Inspection: normal respiratory effort and no respiratory distress <YARA Swanson - Last Filed: 03/21/22 17:38> Auscultation: clear to auscultation bilaterally, no crackles, no rales, no rhonchi and no wheezes <Camila Campos PA - Last Filed: 03/21/22 17:38> Cardio: Rate: regular rate <Camila Zacro PA - Last Filed: 03/21/22 17:38> Heart sounds: S1 normal heart sound present and S2 normal heart sound present <Camila Campos PA - Last Filed: 03/21/22 17:38> GI: Inspection: Yes normal to inspection and Yes distended (Tense) <Camila Campos PA - Last Filed: 03/21/22 17:38> Palpation (GI): Soft to palpation, Tenderness to palpation present (GI) (Diffusely) with no rebound tenderness, no guarding and not rigid <Camila Campos PA - Last Filed: 03/21/22 17:38> Skin: Rashes: no rashes <Camila Campos PA - Last Filed: 03/21/22 17:38> Wounds: no wounds <Camila Campos PA - Last Filed: 03/21/22 17:38> Neuro: General: patient oriented x3, tone normal and no meningeal signs <YARA Swanson - Last Filed: 03/21/22 17:38> Gait exam (Neuro): Normal gait present <Camila Campos PA - Last Filed: 03/21/22 17:38> Extrem: General: Yes normal to inspection, Yes no pedal edema and Yes no calf tenderness <Camila Campos PA - Last Filed: 03/21/22 17:38> Course Course Course Narrative: -1527--no leukocytosis -labs unremarkable, troponin negative XR chest 1V IMPRESSION: Findings favor left-sided pneumonia with small parapneumonic effusion. Correlate clinically. Limited expiratory portable exam. >>1646--low suspicion for pneumonia, CXR appears unchanged from priors > will obtain lateral view, lactic and cultures CT abdomen pelvis w IV con IMPRESSION: Urinary bladder is mildly thick-walled with minimal infiltration of the perivesicular fat. Consider correlation with symptoms of cystitis. ? Hepatic steatosis. ? Circumscribed fat containing lesions in the right and left pelvis may reflect sequelae of prior omental infarct, with no cookie surrounding inflammatory changes to suggest acuity. ? Tiny 8 mm fat-containing right midpole renal lesion compatible with an angiomyolipoma. ? Trace right pleural effusion. XR chest 1V FINDINGS/IMPRESSION: Limited single lateral view is essentially of nondiagnostic quality due to patient positioning, as the lungs are nearly completely obscured. >>Case d/w Dr. Morris > will obtain Chest CT -1800--ED care transferred to [facility] pending CT chest, UA, lactic/blood cx and re-eval <YARA Swanson - Last Filed: 03/21/22 17:38> Reevaluation(s) Reevaluation #1: CT with no signs of pneumonia. It does suggest that there is pleural parenchymal opacities morphologically favoring to reflect scarring, unlikely pneumonia. Will not administer antibiotics for pneumonia at this time. Hepatic steatosis is noted. UA with positive nitrates concerning for urinary tract infection, patient will be given Ceftin 250 mg p.o. b.i.d. x7 days for UTI. First dose will be given here. Lactic is negative. At this time patient requesting to go home, patient will [facility]. At this time I feel comfortable discharge. <YARA Mott - Last Filed: 03/21/22 21:06> Time: 21:04 <YARA Mott - Last Filed: 03/21/22 21:06> MDM - Chest Pain MDM Narrative Medical decision making narrative: 57 y/o male with history of COPD on O2, CHF, Afib on Xarelto, CVA with left sided hemiparesis who presents to the ED via EMS from [facility] complaining of constant chest pressure/tightness since yesterday with associated SOB and abdominal pain/bloating. On exam vital signs stable, NAD, nontoxic appearing, lungs CTA, abdomen mildly distended, tense, diffusely tender, no rebound or guarding. No pedal edema. Concern for ACS vs pneumonia vs appendicitis/diverticulitis or pancreatitis/cholecystitis/lithiasis. Lower suspicion for PE/DVT or CHF Plan: EKG, labs, UA, CXR, CT AP, re-evaluate <YARA Swanson - Last Filed: 03/21/22 17:38> Differential Diagnosis Differential diagnosis: Likely stable angina, unstable angina pectoris, atypical chest pain and chest pain <YARA Swanson - Last Filed: 03/21/22 17:38> Medical Records Data Attestation: I reviewed the patient's medical records. <YARA Swanson - Last Filed: 03/21/22 17:38> Lab Data Attestation: I reviewed the patient's lab results. <YARA Swanson - Last Filed: 03/21/22 17:38> Result diagrams: : 03/21/22 15:10 03/21/22 15:10 <YARA Swanson - Last Filed: 03/21/22 17:38> Labs: Lab Results 03/21/22 03/21/22 03/21/22 Range/Units 15:10 15:10 15:10 WBC 9.5 (4.8-10.8) X10*3/uL RBC 5.04 (4.60-5.80) X10*6/uL Hgb 14.8 (14.0-18.0) g/dl Hct 45.3 (42.0-52.0) % MCV 89.9 (80.0-98.0) fL MCH 29.4 (27.0-33.0) pg MCHC 32.7 (31.0-36.0) g/dl RDW 14.6 (11.0-16.0) % Plt Count 262 (160-400) X10*3/uL MPV 9.7 (9.4-12.4) fL Immature Gran % (Auto) 0.7 H (0.0-0.4) % Neut % (Auto) 50.8 (45-73) % Lymph % (Auto) 40.8 H (20-40) % [place] % (Auto) 5.8 (2-11) % Eos % (Auto) 1.2 (0-4) % Baso % (Auto) 0.7 (0-2) % Lymph # (Auto) 3.9 (1.2-4.9) X10*3/uL [place] # (Auto) 0.6 (0.1-1.2) X10*3/uL Eos # (Auto) 0.1 (0.0-0.4) X10*3/uL Baso # (Auto) 0.1 (0.0-0.2) X10*3/uL Abs Immat Gran (auto) 0.07 H (0.00-0.03) X10*3/uL Absolute Neuts (auto) 4.8 (2.0-8.3) x10*3/uL Absolute Nucleated RBC 0.000 (0.0-0.012) X10*3/uL Nucleated RBC % (auto) 0.0 (0.0-0.2) /100WBC PT 14.1 H (10.0-13.1) SEC INR 1.2 H (0.9-1.1) Sodium 140 (135-145) mmol/L Potassium 4.2 (3.3-5.1) mmol/L Chloride 101 (96-108) mmol/L Carbon Dioxide 26 (22-29) mmol/L Anion Gap 17 (12-20) BUN 12 (9-16) mg/dL Creatinine 0.84 (0.5-1.4) mg/dL Estim Creat Clear Calc 115.5 Estimated GFR > 60 Random Glucose 98 (60-115) mg/dL Lactic Acid (0.5-2.0) mmol/L Calcium 9.6 (8.4-10.2) mg/dL Magnesium 2.5 (1.6-2.6) mg/dL Total Bilirubin 0.6 (0.0-1.0) mg/dL Direct Bilirubin 0.2 (0.0-0.5) mg/dL AST 19 (5-37) U/L ALT 31 (0-40) U/L Alkaline Phosphatase 129 H (39-117) U/L Troponin I High Sens (<3.5-35.0) ng/L B-Natriuretic Peptide (<100) pg/mL Total Protein 7.4 (6.5-8.0) g/dL Albumin 4.7 (3.5-5.0) g/dL Lipase 22 (8-78) U/L Urine Color Urine Appearance Urine pH (5.0-9.0) Ur Specific [place] (1.005-1.025) Urine Protein (Neg-Trace) mg/dL Urine Glucose (UA) (Negative) mg/dL Urine Ketones (Negative) mg/dL Urine Blood (Negative) Urine Nitrite (Negative) Ur Leukocyte Esterase (Negative) Urine RBC (0-2) /HPF Urine WBC (0-5) /HPF Ur Squamous Epith Cells (0-2) /HPF Urine Bacteria (None Seen) Hyaline Casts (0-2) /LPF COVID-19 (ILIANA) (Negative) COVID-19 Clin Com Influenza Type A ([facility]ITA) (Negative) Influenza Type B ([facility]ONITA) (Negative) Influenza A & B Note 03/21/22 03/21/22 03/21/22 Range/Units 15:10 15:10 15:10 WBC (4.8-10.8) X10*3/uL RBC (4.60-5.80) X10*6/uL Hgb (14.0-18.0) g/dl Hct (42.0-52.0) % MCV (80.0-98.0) fL MCH (27.0-33.0) pg MCHC (31.0-36.0) g/dl RDW (11.0-16.0) % Plt Count (160-400) X10*3/uL MPV (9.4-12.4) fL Immature Gran % (Auto) (0.0-0.4) % Neut % (Auto) (45-73) % Lymph % (Auto) (20-40) % [place] % (Auto) (2-11) % Eos % (Auto) (0-4) % Baso % (Auto) (0-2) % Lymph # (Auto) (1.2-4.9) X10*3/uL [place] # (Auto) (0.1-1.2) X10*3/uL Eos # (Auto) (0.0-0.4) X10*3/uL Baso # (Auto) (0.0-0.2) X10*3/uL Abs Immat Gran (auto) (0.00-0.03) X10*3/uL Absolute Neuts (auto) (2.0-8.3) x10*3/uL Absolute Nucleated RBC (0.0-0.012) X10*3/uL Nucleated RBC % (auto) (0.0-0.2) /100WBC PT (10.0-13.1) SEC INR (0.9-1.1) Sodium (135-145) mmol/L Potassium (3.3-5.1) mmol/L Chloride (96-108) mmol/L Carbon Dioxide (22-29) mmol/L Anion Gap (12-20) BUN (9-16) mg/dL Creatinine (0.5-1.4) mg/dL Estim Creat Clear Calc Estimated GFR Random Glucose (60-115) mg/dL Lactic Acid (0.5-2.0) mmol/L Calcium (8.4-10.2) mg/dL Magnesium (1.6-2.6) mg/dL Total Bilirubin (0.0-1.0) mg/dL Direct Bilirubin (0.0-0.5) mg/dL AST (5-37) U/L ALT (0-40) U/L Alkaline Phosphatase (39-117) U/L Troponin I High Sens < 3.5 (<3.5-35.0) ng/L B-Natriuretic Peptide 34 (<100) pg/mL Total Protein (6.5-8.0) g/dL Albumin (3.5-5.0) g/dL Lipase (8-78) U/L Urine Color Urine Appearance Urine pH (5.0-9.0) Ur Specific [place] (1.005-1.025) Urine Protein (Neg-Trace) mg/dL Urine Glucose (UA) (Negative) mg/dL Urine Ketones (Negative) mg/dL Urine Blood (Negative) Urine Nitrite (Negative) Ur Leukocyte Esterase (Negative) Urine RBC (0-2) /HPF Urine WBC (0-5) /HPF Ur Squamous Epith Cells (0-2) /HPF Urine Bacteria (None Seen) Hyaline Casts (0-2) /LPF COVID-19 (ILIANA) Negative (Negative) COVID-19 Clin Com See Note Influenza Type A ([facility]ONITA) (Negative) Influenza Type B ([facility]ON[facility]) (Negative) Influenza A & B Note 03/21/22 03/21/22 03/21/22 Range/Units 17:43 20:33 20:33 WBC (4.8-10.8) X10*3/uL RBC (4.60-5.80) X10*6/uL Hgb (14.0-18.0) g/dl Hct (42.0-52.0) % MCV (80.0-98.0) fL MCH (27.0-33.0) pg MCHC (31.0-36.0) g/dl RDW (11.0-16.0) % Plt Count (160-400) X10*3/uL MPV (9.4-12.4) fL Immature Gran % (Auto) (0.0-0.4) % Neut % (Auto) (45-73) % Lymph % (Auto) (20-40) % [place] % (Auto) (2-11) % Eos % (Auto) (0-4) % Baso % (Auto) (0-2) % Lymph # (Auto) (1.2-4.9) X10*3/uL [place] # (Auto) (0.1-1.2) X10*3/uL Eos # (Auto) (0.0-0.4) X10*3/uL Baso # (Auto) (0.0-0.2) X10*3/uL Abs Immat Gran (auto) (0.00-0.03) X10*3/uL Absolute Neuts (auto) (2.0-8.3) x10*3/uL Absolute Nucleated RBC (0.0-0.012) X10*3/uL Nucleated RBC % (auto) (0.0-0.2) /100WBC PT (10.0-13.1) SEC INR (0.9-1.1) Sodium (135-145) mmol/L Potassium (3.3-5.1) mmol/L Chloride (96-108) mmol/L Carbon Dioxide (22-29) mmol/L Anion Gap (12-20) BUN (9-16) mg/dL Creatinine (0.5-1.4) mg/dL Estim Creat Clear Calc Estimated GFR Random Glucose (60-115) mg/dL Lactic Acid 1.0 (0.5-2.0) mmol/L Calcium (8.4-10.2) mg/dL Magnesium (1.6-2.6) mg/dL Total Bilirubin (0.0-1.0) mg/dL Direct Bilirubin (0.0-0.5) mg/dL AST (5-37) U/L ALT (0-40) U/L Alkaline Phosphatase (39-117) U/L Troponin I High Sens (<3.5-35.0) ng/L B-Natriuretic Peptide (<100) pg/mL Total Protein (6.5-8.0) g/dL Albumin (3.5-5.0) g/dL Lipase (8-78) U/L Urine Color Yellow Urine Appearance Clear Urine pH 7.0 (5.0-9.0) Ur Specific [place] 1.015 (1.005-1.025) Urine Protein Negative (Neg-Trace) mg/dL Urine Glucose (UA) Negative (Negative) mg/dL Urine Ketones Negative (Negative) mg/dL Urine Blood Negative (Negative) Urine Nitrite Positive H (Negative) Ur Leukocyte Esterase Negative (Negative) Urine RBC 0-2 (0-2) /HPF Urine WBC 0-5 (0-5) /HPF Ur Squamous Epith Cells 0-2 (0-2) /HPF Urine Bacteria 2+ (None Seen) Hyaline Casts 0-2 (0-2) /LPF COVID-19 (ILIANA) (Negative) COVID-19 Clin Com Influenza Type A ([facility]ON[facility]) Negative (Negative) Influenza Type B ([facility]ON[facility]) Negative (Negative) Influenza A & B Note See Note <YARA Swanson - Last Filed: 03/21/22 17:38> Lab Results 03/21/22 03/21/22 03/21/22 Range/Units 15:10 15:10 15:10 WBC 9.5 (4.8-10.8) X10*3/uL RBC 5.04 (4.60-5.80) X10*6/uL Hgb 14.8 (14.0-18.0) g/dl Hct 45.3 (42.0-52.0) % MCV 89.9 (80.0-98.0) fL MCH 29.4 (27.0-33.0) pg MCHC 32.7 (31.0-36.0) g/dl RDW 14.6 (11.0-16.0) % Plt Count 262 (160-400) X10*3/uL MPV 9.7 (9.4-12.4) fL Immature Gran % (Auto) 0.7 H (0.0-0.4) % Neut % (Auto) 50.8 (45-73) % Lymph % (Auto) 40.8 H (20-40) % [place] % (Auto) 5.8 (2-11) % Eos % (Auto) 1.2 (0-4) % Baso % (Auto) 0.7 (0-2) % Lymph # (Auto) 3.9 (1.2-4.9) X10*3/uL [place] # (Auto) 0.6 (0.1-1.2) X10*3/uL Eos # (Auto) 0.1 (0.0-0.4) X10*3/uL Baso # (Auto) 0.1 (0.0-0.2) X10*3/uL Abs Immat Gran (auto) 0.07 H (0.00-0.03) X10*3/uL Absolute Neuts (auto) 4.8 (2.0-8.3) x10*3/uL Absolute Nucleated RBC 0.000 (0.0-0.012) X10*3/uL Nucleated RBC % (auto) 0.0 (0.0-0.2) /100WBC PT 14.1 H (10.0-13.1) SEC INR 1.2 H (0.9-1.1) Sodium 140 (135-145) mmol/L Potassium 4.2 (3.3-5.1) mmol/L Chloride 101 (96-108) mmol/L Carbon Dioxide 26 (22-29) mmol/L Anion Gap 17 (12-20) BUN 12 (9-16) mg/dL Creatinine 0.84 (0.5-1.4) mg/dL Estim Creat Clear Calc 115.5 Estimated GFR > 60 Random Glucose 98 (60-115) mg/dL Lactic Acid (0.5-2.0) mmol/L Calcium 9.6 (8.4-10.2) mg/dL Magnesium 2.5 (1.6-2.6) mg/dL Total Bilirubin 0.6 (0.0-1.0) mg/dL Direct Bilirubin 0.2 (0.0-0.5) mg/dL AST 19 (5-37) U/L ALT 31 (0-40) U/L Alkaline Phosphatase 129 H (39-117) U/L Troponin I High Sens (<3.5-35.0) ng/L B-Natriuretic Peptide (<100) pg/mL Total Protein 7.4 (6.5-8.0) g/dL Albumin 4.7 (3.5-5.0) g/dL Lipase 22 (8-78) U/L Urine Color Urine Appearance Urine pH (5.0-9.0) Ur Specific [place] (1.005-1.025) Urine Protein (Neg-Trace) mg/dL Urine Glucose (UA) (Negative) mg/dL Urine Ketones (Negative) mg/dL Urine Blood (Negative) Urine Nitrite (Negative) Ur Leukocyte Esterase (Negative) Urine RBC (0-2) /HPF Urine WBC (0-5) /HPF Ur Squamous Epith Cells (0-2) /HPF Urine Bacteria (None Seen) Hyaline Casts (0-2) /LPF COVID-19 (ILIANA) (Negative) COVID-19 Clin Com Influenza Type A ([facility]ON[facility]) (Negative) Influenza Type B ([facility]ON[facility]) (Negative) Influenza A & B Note 03/21/22 03/21/22 03/21/22 Range/Units 15:10 15:10 15:10 WBC (4.8-10.8) X10*3/uL RBC (4.60-5.80) X10*6/uL Hgb (14.0-18.0) g/dl Hct (42.0-52.0) % MCV (80.0-98.0) fL MCH (27.0-33.0) pg MCHC (31.0-36.0) g/dl RDW (11.0-16.0) % Plt Count (160-400) X10*3/uL MPV (9.4-12.4) fL Immature Gran % (Auto) (0.0-0.4) % Neut % (Auto) (45-73) % Lymph % (Auto) (20-40) % [place] % (Auto) (2-11) % Eos % (Auto) (0-4) % Baso % (Auto) (0-2) % Lymph # (Auto) (1.2-4.9) X10*3/uL [place] # (Auto) (0.1-1.2) X10*3/uL Eos # (Auto) (0.0-0.4) X10*3/uL Baso # (Auto) (0.0-0.2) X10*3/uL Abs Immat Gran (auto) (0.00-0.03) X10*3/uL Absolute Neuts (auto) (2.0-8.3) x10*3/uL Absolute Nucleated RBC (0.0-0.012) X10*3/uL Nucleated RBC % (auto) (0.0-0.2) /100WBC PT (10.0-13.1) SEC INR (0.9-1.1) Sodium (135-145) mmol/L Potassium (3.3-5.1) mmol/L Chloride (96-108) mmol/L Carbon Dioxide (22-29) mmol/L Anion Gap (12-20) BUN (9-16) mg/dL Creatinine (0.5-1.4) mg/dL Estim Creat Clear Calc Estimated GFR Random Glucose (60-115) mg/dL Lactic Acid (0.5-2.0) mmol/L Calcium (8.4-10.2) mg/dL Magnesium (1.6-2.6) mg/dL Total Bilirubin (0.0-1.0) mg/dL Direct Bilirubin (0.0-0.5) mg/dL AST (5-37) U/L ALT (0-40) U/L Alkaline Phosphatase (39-117) U/L Troponin I High Sens < 3.5 (<3.5-35.0) ng/L B-Natriuretic Peptide 34 (<100) pg/mL Total Protein (6.5-8.0) g/dL Albumin (3.5-5.0) g/dL Lipase (8-78) U/L Urine Color Urine Appearance Urine pH (5.0-9.0) Ur Specific [place] (1.005-1.025) Urine Protein (Neg-Trace) mg/dL Urine Glucose (UA) (Negative) mg/dL Urine Ketones (Negative) mg/dL Urine Blood (Negative) Urine Nitrite (Negative) Ur Leukocyte Esterase (Negative) Urine RBC (0-2) /HPF Urine WBC (0-5) /HPF Ur Squamous Epith Cells (0-2) /HPF Urine Bacteria (None Seen) Hyaline Casts (0-2) /LPF COVID-19 (ILIANA) Negative (Negative) COVID-19 Clin Com See Note Influenza Type A ([facility]) (Negative) Influenza Type B ([facility]) (Negative) Influenza A & B Note 03/21/22 03/21/22 03/21/22 Range/Units 17:43 20:33 20:33 WBC (4.8-10.8) X10*3/uL RBC (4.60-5.80) X10*6/uL Hgb (14.0-18.0) g/dl Hct (42.0-52.0) % MCV (80.0-98.0) fL MCH (27.0-33.0) pg MCHC (31.0-36.0) g/dl RDW (11.0-16.0) % Plt Count (160-400) X10*3/uL MPV (9.4-12.4) fL Immature Gran % (Auto) (0.0-0.4) % Neut % (Auto) (45-73) % Lymph % (Auto) (20-40) % [place] % (Auto) (2-11) % Eos % (Auto) (0-4) % Baso % (Auto) (0-2) % Lymph # (Auto) (1.2-4.9) X10*3/uL [place] # (Auto) (0.1-1.2) X10*3/uL Eos # (Auto) (0.0-0.4) X10*3/uL Baso # (Auto) (0.0-0.2) X10*3/uL Abs Immat Gran (auto) (0.00-0.03) X10*3/uL Absolute Neuts (auto) (2.0-8.3) x10*3/uL Absolute Nucleated RBC (0.0-0.012) X10*3/uL Nucleated RBC % (auto) (0.0-0.2) /100WBC PT (10.0-13.1) SEC INR (0.9-1.1) Sodium (135-145) mmol/L Potassium (3.3-5.1) mmol/L Chloride (96-108) mmol/L Carbon Dioxide (22-29) mmol/L Anion Gap (12-20) BUN (9-16) mg/dL Creatinine (0.5-1.4) mg/dL Estim Creat Clear Calc Estimated GFR Random Glucose (60-115) mg/dL Lactic Acid 1.0 (0.5-2.0) mmol/L Calcium (8.4-10.2) mg/dL Magnesium (1.6-2.6) mg/dL Total Bilirubin (0.0-1.0) mg/dL Direct Bilirubin (0.0-0.5) mg/dL AST (5-37) U/L ALT (0-40) U/L Alkaline Phosphatase (39-117) U/L Troponin I High Sens (<3.5-35.0) ng/L B-Natriuretic Peptide (<100) pg/mL Total Protein (6.5-8.0) g/dL Albumin (3.5-5.0) g/dL Lipase (8-78) U/L Urine Color Yellow Urine Appearance Clear Urine pH 7.0 (5.0-9.0) Ur Specific [place] 1.015 (1.005-1.025) Urine Protein Negative (Neg-Trace) mg/dL Urine Glucose (UA) Negative (Negative) mg/dL Urine Ketones Negative (Negative) mg/dL Urine Blood Negative (Negative) Urine Nitrite Positive H (Negative) Ur Leukocyte Esterase Negative (Negative) Urine RBC 0-2 (0-2) /HPF Urine WBC 0-5 (0-5) /HPF Ur Squamous Epith Cells 0-2 (0-2) /HPF Urine Bacteria 2+ (None Seen) Hyaline Casts 0-2 (0-2) /LPF COVID-19 ([facility]) (Negative) COVID-19 Clin Com Influenza Type A ([facility]) Negative (Negative) Influenza Type B ([facility]) Negative (Negative) Influenza A & B Note See Note <YARA Mott - Last Filed: 03/21/22 21:06> ECG Data ECG #1: Attestation: I personally reviewed and interpreted this ECG as follows: <YARA Swanson - Last Filed: 03/21/22 17:38> ECG interpretation date: 03/21/22 <YARA Swanson - Last Filed: 03/21/22 17:38> ECG interpretation time: 14:15 <YARA Swanson Last Filed: 03/21/22 17:38> Prior ECG tracings: available for review <YARA Swanson Last Filed: 03/21/22 17:38> Interpretation: EKG AFib with premature ventricular complexes. Low-voltage QRS. Rate of 79. QTC is 426. Nonspecific T-wave abnormality evident in anterior leads. No STEMI <YARA Swanson - Last Filed: 03/21/22 17:38> Critical Care Time Critical Care Time Critical Care Time: No <YARA Mott Last Filed: 03/21/22 21:06> Discharge Plan Discharge Clinical Impression: Chest pain, Abdominal pain <YARA Swanson Last Filed: 03/21/22 17:38> Patient Disposition: Still a Patient <YARA Swanson Last Filed: 03/21/22 17:38> Instructions: Chest Pain (DC), Abdominal Pain (ED) <YARA Swanson Last Filed: 03/21/22 17:38> Additional Instructions: Take your medications as prescribed. If you were prescribed antibiotics today, it is important that you take your medication to their entirety, do not skip any doses, do not finish them early. Follow-up with your primary care provider this week. Return to the emergency department with new or worsening symptoms. Such as fevers, chills, chest pain, shortness of breath, nausea, vomiting, dizziness, headache, vision changes, lethargy In case of emergency call 911 CT/CT chest wo IV con IMPRESSION: ? Moderate centrilobular emphysema and bronchial wall thickening suggesting airways inflammation and bandlike pleural parenchymal opacities morphologically favored to reflect scarring. ? Mosaic attenuation which can be seen in the setting of small airways or small vessel disease. ? Hepatic steatosis. ? Coronary artery calcification is present. <YARA Swanson Last Filed: 03/21/22 17:38> Prescriptions: New cefuroxime axetil 250 mg tablet 250 mg PO BID 7 Days Qty: 14 0RF No Action lorazepam [Ativan] 0.5 mg tablet 1 tab PO QAM olanzapine [Zyprexa] 15 mg tablet 1 tab PO BEDTIME lorazepam [Ativan] 1 mg tablet 1 tab PO BEDTIME buspirone 15 mg tablet 1 tab PO TID melatonin 5 mg capsule 2 cap PO BEDTIME mirtazapine 15 mg Tablet 15 mg PO BEDTIME atorvastatin 40 mg Tablet 40 mg PO BEDTIME gabapentin 400 mg Capsule 400 mg 3XD baclofen 10 mg Tablet 10 mg PO BID sertraline 150 mg Capsule 150 mg PO DAILY levetiracetam 500 mg Tablet 500 mg PO BID pantoprazole 40 mg Tablet,Delayed Release (Dr/Ec) 40 mg PO DAILY metoprolol tartrate 50 mg Tablet 50 mg PO BID cetirizine 10 mg Tablet 10 mg PO DAILY olanzapine [Zyprexa] 5 mg tablet 5 mg PO BID@0900,1500 docusate sodium 100 mg Capsule 100 mg PO BID furosemide 20 mg Tablet 20 mg PO DAILY haloperidol 2 mg tablet 1 tab PO TID lamotrigine [Lamictal] 100 mg Tablet 125 mg PO BEDTIME finasteride 5 mg Tablet 5 mg PO DAILY lorazepam [Ativan] 0.5 mg tablet 1 tab PO BID PRN (Reason: Anxiety) Xarelto 20 mg Tablet 20 mg PO QPM Rx Instructions: must administer with evening meal midodrine 5 mg tablet 1 tab PO TIDAC PRN (Reason: LOW BLOOD PRESSURE) furosemide [Lasix] 40 mg tablet 40 mg PO DAILY 4 Days Qty: 4 0RF <YARA Swanson - Last Filed: 03/21/22 17:38> Referrals: [facility] Group] - 5 days Physician,Unknown J [Primary Care Provider] - <YARA Swanson - Last Filed: 03/21/22 17:38> Stand Alone Forms: Work/School Release <YARA Swanson - Last Filed: 03/21/22 17:38>
[2022-03-21 15:27] LABS: INTERNATIONAL NORM RATIO 1.2 (0.9-1.1); Prothrombin Time 14.1 SEC (10.0-13.1)
[2022-03-21 15:43] LABS: Anion Gap 17 (12-20); Aspartate Amino Transferase 19 U/L (5-37); Bilirubin Direct 0.2 mg/dL (0.0-0.5); Bilirubin Total 0.6 mg/dL (0.0-1.0); Calcium 9.6 mg/dL (8.4-10.2); Carbon Dioxide 26 mmol/L (22-29); Chloride 101 mmol/L (96-108); Potassium 4.2 mmol/L (3.3-5.1); Sodium 140 mmol/L (135-145); Total Protein 7.4 g/dL (6.5-8.0); Troponin-I High Sensitivity < 3.5 ng/L (<3.5-35.0)
[2022-03-21 15:44] LABS: B Type Natriuretic Peptide 34 pg/mL (<100)
[2022-03-21 15:52] LABS: COVID-19 Test Negative (Negative); IDNOW Serial# 16C4AD1C
[2022-03-21 15:55] LABS: Alanine Aminotransferase 31 U/L (0-40); Albumin Level 4.7 g/dL (3.5-5.0); Alkaline Phosphatase 129 U/L (39-117); Blood Urea Nitrogen 12 mg/dL (9-16); Creatinine Clr Calc Pharmacy 115.5; Estimated Glomerular Filt Rate > 60; Glucose Random 98 mg/dL (60-115); Lipase 22 U/L (8-78); Magnesium 2.5 mg/dL (1.6-2.6)
[2022-03-21] MEDS: iohexoL 350 MG/ML 100 ML INFUS..BTL IV (16:35)
[2022-03-21] MEDS: Furosemide 40 MG/4 ML VIAL IVPUSH (18:53)
[2022-03-21] MEDS: LORazepam 1 MG TABLET PO ×2 (19:53→23:02)
[2022-03-21 20:42] LABS: Appearance Urine Clear; Color Urine Yellow; Glucose Urine UA Negative (Negative); Leukocyte Esterase Urine Negative (Negative); Nitrite Urine Positive (Negative); Specific Gravity - Urine 1.015 (1.005-1.025); UMIC TRIGGER UACC YES; Urine Blood Negative (Negative); Urine Ketones Negative (Negative); Urine Protein Negative (Neg-Trace)
[2022-03-21 20:47] LABS: Bacteria Urine 2+ (None Seen); Hyaline Casts Urine 0-2 /LPF (0-2); RBC Urine 0-2 /HPF (0-2); Squamous Epithelial Cell Urine 0-2 /HPF (0-2); UACC Culture Trigger YES; WBC Urine 0-5 /HPF (0-5)
[2022-03-21 20:57] LABS: IDNOW Serial# 16C4AD1C; Influenza A Negative (Negative); Influenza B2 Negative (Negative)
--- NOTE | 2022-03-21 21:10 | PC.NURSE ---
During [id number] report, was told by Jillian Rogers (day shift nurse) to call ESTELA Camarillo from pt.'s residential at [phone] with any updates regarding pt. Pt. is up for discharge at this time. Attempting to call [facility] without success - left voicemail and callback number.
--- NOTE | 2022-03-21 21:16 | PC.NURSE ---
No CB from [facility]. Called pt.'s daughter, Radha. Radha gave me number for other manager scheduling from [facility], Kamila - [phone]. Attempting to call now
--- NOTE | 2022-03-21 21:18 | PC.NURSE ---
Attempt to call Kamila, no answer, left voicemail
--- NOTE | 2022-03-21 21:19 | PC.NURSE ---
Discharge delayed while trying to contact [facility] and coordinate a ride back for pt.
--- NOTE | 2022-03-21 21:20 | PC.NURSE ---
Let Sonja, [employer] worker know that discharge is delayed because we can't get in touch with a contact from the long term and a ride isn't coordinated. Per Sonja, we will discharge pt. and move him into waiting room
--- NOTE | 2022-03-21 21:29 | PC.NURSE ---
Daughter Radha gave this RN two additional contact numbers for [facility] and group reservations coordinator directly - [phone] and [phone]. Attempting to call now
--- NOTE | 2022-03-21 22:10 | PC.NURSE ---
Ambulance arranged for pt. for 0800 tomorrow morning, 03/22/22
--- NOTE | 2022-03-21 22:20 | PC.NURSE ---
Delia called at 2142 for a transfer back to [facility].Dispatch stated there are no available trucks and it will be booked for after 0800AM. RN and Loan Specialist aware
--- NOTE | 2022-03-22 00:43 | PC.NURSE ---
Pt. repeatedly shouting nurse and stating to this RN that he needs to have a bowel movement. Pt. is bedbound and states that he uses a fredi lift to get to the toilet at his halfway. Explained to pt. that we do not have a fredi lift in the department, but we could offer him a bedpen for tonight. Pt. repeatedly refusing bedpan despite education and redirection, and is absolutely insisting to move his bowels directly in bed. This RN and tech put multiple pads under pt. and will monitor for BM
--- NOTE | 2022-03-22 01:18 | PC.NURSE ---
PT CONTINUES TO YELL NURSE DESPITE BEING OFFERED MANY COMFORT MEASURES SUCH USING THE BEDPAN A WARM BLANKET AND REPOSITIONING. PAIN ASKED FOR PAIN LEVEL AND HE STATES HE IS NO PAIN . PT REFUSES BEDPAN AND ANY HELP AND CONTINUES TO YELL NURSE CAUSING A DISRUPTIVE ENVIRONMENT FOR OTHER PTS CHARGE NURSE MADE AWARE OF SITUATION.
[2022-03-22 02:32] VITALS: BP 113/70; PULSE 69; RESP 18; O2SAT 94
[2022-03-22 05:03] VITALS: BP 118/60; PULSE 75; O2SAT 97
[2022-03-22 05:51] VITALS: BP 118/76; PULSE 68; RESP 15; O2SAT 96
--- NOTE | 2022-03-22 06:22 | PC.NURSE ---
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 pt [facility] Reported off to ESTELA Marte
--- NOTE | 2022-03-22 06:39 | PC.NURSE ---
Pt. has continued to yell NURSE throughout the entirety of this 12-hour shift. No amount of redirection by any staff member has gotten him to stop. Pt. has verbatim told staff that he refuses to stop screaming out. Pt. has been checked for pain, positioning, bathroom needs, warm blankets, hydration, etc. throughout the night, and there has been nothing offered that will appease this pt. It is unclear as to what he is even screaming about. Pt. has hx. of CVA. As soon as a need was met, he would continue to scream out moments later. Ambulance transport arranged for 0800, still awaiting transport at this time.
--- NOTE | 2022-03-22 07:20 | PC.NURSE ---
report given to Miryam CHRISTIANSON RN
--- NOTE | 2022-03-22 07:59 | PC.NURSE ---
pt soiled bed, states he refuses to use bed avila. pt linens and pads changed, pt repositioned in bed, given warm blanket.
== END 2022-03-22 08:54 | disposition home or self-care (01) ==
PROVIDERS: Physician Assistant; Emergency Provider Emergency Medicine
DX: R07.9 Chest pain, unspecified (principal); R10.9 Unspecified abdominal pain; R06.02 Shortness of breath; Z20.822 Contact with and (suspected) exposure to COVID-19; I48.91 Unspecified atrial fibrillation; I69.354 Hemiplegia and hemiparesis following cerebral infarction affecting left non-dominant side; J44.9 Chronic obstructive pulmonary disease, unspecified; Z99.81 Dependence on supplemental oxygen; Z79.01 Long term (current) use of anticoagulants; Z79.02 Long term (current) use of antithrombotics/antiplatelets; Z79.899 Other long term (current) drug therapy; Z87.891 Personal history of nicotine dependence
CPT/HCPCS: 36415; 51701; 71045; 71250; 74177; 80048; 80076; 81001; 83605; 83690; 83735; 83880; 84484; 85025; 85610; 87040; 87086; 87147; 87205; 87502; 87635; 93005; 96374; 99284; J1940; Q9967

== ENCOUNTER 2022-03-28 14:17 | Emergency (ER) | payer MEDICAID, SELFPAY ==
[2022-03-28 14:23] VITALS: PULSE 88; O2SAT 94
--- NOTE | 2022-03-28 14:23 | ED.PSYCH ---
HPI - Psych General Chief Complaint: General Medical Stated Complaint: BEHAVIORAL ISSUES Time Seen by Provider: 03/28/22 14:18 Source: patient and old records reviewed Mode of arrival: EMS Limitations: other (cognitive disorder) History of Present Illness HPI Narrative: 57 y/o male with history of COPD on O2, CHF, Afib on Xarelto, CVA with left sided hemiparesis, anxiety has been having issues in shelter - more agitated. He has a specific issue with one worker on the weekend. He denies SI/HI. [facility] sent him in for agitation. MD complaint: other (agitation) Onset (ago): day(s) (last few days) Duration: intermittent History of same: Yes Relieving factors: none Exacerbating factors: other (states he doesn't like a group controller) Context: significant life stressor Associated psychiatric symptoms: none Associated symptoms: denies other symptoms Treatments prior to arrival: none Related Data Home Medications Medication Instructions Recorded Confirmed atorvastatin 40 mg tablet 40 mg PO BEDTIME 02/28/22 02/28/22 baclofen 10 mg tablet 10 mg PO BID 02/28/22 02/28/22 buspirone 15 mg tablet 1 tab PO TID 02/28/22 02/28/22 gabapentin 400 mg capsule 400 mg 3XD 02/28/22 02/28/22 levetiracetam 500 mg tablet 500 mg PO BID 02/28/22 02/28/22 lorazepam 0.5 mg tablet (Ativan) 1 tab PO QAM 02/28/22 02/28/22 lorazepam 1 mg tablet (Ativan) 1 tab PO BEDTIME 02/28/22 02/28/22 melatonin 5 mg capsule 2 cap PO BEDTIME 02/28/22 02/28/22 metoprolol tartrate 50 mg tablet 50 mg PO BID 02/28/22 02/28/22 mirtazapine 15 mg tablet 15 mg PO BEDTIME 02/28/22 02/28/22 olanzapine 15 mg tablet (Zyprexa) 1 tab PO BEDTIME 02/28/22 02/28/22 pantoprazole 40 mg tablet,delayed 40 mg PO DAILY 02/28/22 02/28/22 release sertraline 150 mg capsule 150 mg PO DAILY 02/28/22 02/28/22 cetirizine 10 mg tablet 10 mg PO DAILY 03/01/22 03/01/22 docusate sodium 100 mg capsule 100 mg PO BID 03/01/22 03/01/22 finasteride 5 mg tablet 5 mg PO DAILY 03/01/22 03/01/22 furosemide 20 mg tablet 20 mg PO DAILY 03/01/22 03/01/22 haloperidol 2 mg tablet 1 tab PO TID 03/01/22 03/01/22 lamotrigine 100 mg tablet 125 mg PO BEDTIME 03/01/22 03/01/22 (Lamictal) lorazepam 0.5 mg tablet (Ativan) 1 tab PO BID PRN Anxiety 03/01/22 03/01/22 midodrine 5 mg tablet 1 tab PO TIDAC PRN LOW BLOOD 03/01/22 03/01/22 PRESSURE olanzapine 5 mg tablet (Zyprexa) 5 mg PO BID@0900,1500 03/01/22 03/01/22 rivaroxaban 20 mg tablet (Xarelto) 20 mg PO QPM 03/01/22 03/01/22 Previous Rx's Medication Instructions Recorded furosemide 40 mg tablet (Lasix) 40 mg PO DAILY 4 days #4 tabs 03/01/22 cefuroxime axetil 250 mg tablet 250 mg PO BID 7 days #14 tabs 03/21/22 Allergies Allergy/AdvReac Type Severity Reaction Status Date / Time No Known Allergies Allergy Verified 12/15/21 14:53 Review of Systems Review of Systems: ROS unable to be obtained due to cognitive impairment [facility] Past Medical History Attestation statement: The following information was validated with the patient. Medical History Afib Anxiety disorder CHF (congestive heart failure) Cognitive disorder COPD (chronic obstructive pulmonary disease) CVA (cerebrovascular accident) Traumatic brain injury Social History Social History Alcohol intake: never Patient Tobacco Use Status: Former Tobacco user Advance Directives: Yes Advance Directives on File: Yes Advance Directives Date on File: 11/11/21 Physical Exam Vital Signs: Vital Signs: Last Vital Signs Temp 98.7 F 03/28/22 15:48 Pulse 93 03/28/22 15:48 Resp 16 03/28/22 15:48 BP 100/79 03/28/22 15:48 Pulse Ox 93 03/28/22 15:48 O2 Del Method 03/28/22 15:48 BMI result Body Mass Index 24.4 Appearance: Alert. Oriented X to person and place. No acute distress. intermittently upset at times Eyes: Pupils equal, round and reactive to light. ENT: Pharynx normal. Neck: Normal inspection. Neck supple. CVS: Normal heart rate and rhythm. Pulses normal. Respiratory: No respiratory distress. Breath sounds normal. Abdomen: Soft and nontender. Skin: Skin warm and dry. Normal skin color. Normal skin turgor. Extremities: No lower extremity edema. Neuro: Oriented X 3. L sided hemiparesis No sensory deficit. Course Course Course Narrative: Physician observation started at 356pm. Patient placed in physician observation because the patient needed more time for CM/CARE team to assess the need for change in shelter or treatment for reported aggression at shelter. At the time observation was started the patient's vitals were stable, patient is alert and oriented but slightly agitated. MDM - Psych MDM Narrative Medical decision making narrative: 7 y/o male with history of COPD on O2, CHF, Afib on Xarelto, CVA with left sided hemiparesis, anxiety here with c/o aggression at shelter. at this time will obtain basic labs/urine and involve CM and CARE team. Lab Data Result diagrams: 03/28/22 15:28 03/28/22 15:28 Labs: Lab Results 03/28/22 03/28/22 03/28/22 Range/Units 15:20 15:28 15:28 WBC 9.0 (4.8-10.8) X10*3/uL RBC 4.73 (4.60-5.80) X10*6/uL Hgb 13.8 L (14.0-18.0) g/dl Hct 43.5 (42.0-52.0) % MCV 92.0 (80.0-98.0) fL MCH 29.2 (27.0-33.0) pg MCHC 31.7 (31.0-36.0) g/dl RDW 14.2 (11.0-16.0) % Plt Count 229 (160-400) X10*3/uL MPV 9.6 (9.4-12.4) fL Immature Gran % (Auto) 0.9 H (0.0-0.4) % Neut % (Auto) 58.3 (45-73) % Lymph % (Auto) 33.8 (20-40) % [place] % (Auto) 5.4 (2-11) % Eos % (Auto) 0.8 (0-4) % Baso % (Auto) 0.8 (0-2) % Lymph # (Auto) 3.0 (1.2-4.9) X10*3/uL [place] # (Auto) 0.5 (0.1-1.2) X10*3/uL Eos # (Auto) 0.1 (0.0-0.4) X10*3/uL Baso # (Auto) 0.1 (0.0-0.2) X10*3/uL Abs Immat Gran (auto) 0.08 H (0.00-0.03) X10*3/uL Absolute Neuts (auto) 5.2 (2.0-8.3) x10*3/uL Absolute Nucleated RBC 0.000 (0.0-0.012) X10*3/uL Nucleated RBC % (auto) 0.0 (0.0-0.2) /100WBC Sodium 142 (135-145) mmol/L Potassium 4.2 (3.3-5.1) mmol/L Chloride 103 (96-108) mmol/L Carbon Dioxide 28 (22-29) mmol/L Anion Gap 15 (12-20) BUN 10 (9-16) mg/dL Creatinine 0.80 (0.5-1.4) mg/dL Estim Creat Clear Calc 114.5 Estimated GFR > 60 Random Glucose 113 (60-115) mg/dL Calcium 9.3 (8.4-10.2) mg/dL Magnesium 2.3 (1.6-2.6) mg/dL Total Bilirubin 0.5 (0.0-1.0) mg/dL Direct Bilirubin 0.2 (0.0-0.5) mg/dL AST 19 (5-37) U/L ALT 25 (0-40) U/L Alkaline Phosphatase 115 (39-117) U/L Total Protein 6.6 (6.5-8.0) g/dL Albumin 4.3 (3.5-5.0) g/dL COVID-19 (ILIANA) Negative (Negative) COVID-19 Clin Com See Note Discharge Plan Discharge Clinical Impression: Aggression Patient Disposition: Still a Patient Prescriptions: No Action lorazepam [Ativan] 0.5 mg tablet 1 tab PO QAM olanzapine [Zyprexa] 15 mg tablet 1 tab PO BEDTIME lorazepam [Ativan] 1 mg tablet 1 tab PO BEDTIME buspirone 15 mg tablet 1 tab PO TID melatonin 5 mg capsule 2 cap PO BEDTIME mirtazapine 15 mg Tablet 15 mg PO BEDTIME atorvastatin 40 mg Tablet 40 mg PO BEDTIME gabapentin 400 mg Capsule 400 mg 3XD baclofen 10 mg Tablet 10 mg PO BID sertraline 150 mg Capsule 150 mg PO DAILY levetiracetam 500 mg Tablet 500 mg PO BID pantoprazole 40 mg Tablet,Delayed Release (Dr/Ec) 40 mg PO DAILY metoprolol tartrate 50 mg Tablet 50 mg PO BID cetirizine 10 mg Tablet 10 mg PO DAILY olanzapine [Zyprexa] 5 mg tablet 5 mg PO BID@0900,1500 docusate sodium 100 mg Capsule 100 mg PO BID furosemide 20 mg Tablet 20 mg PO DAILY haloperidol 2 mg tablet 1 tab PO TID lamotrigine [Lamictal] 100 mg Tablet 125 mg PO BEDTIME finasteride 5 mg Tablet 5 mg PO DAILY lorazepam [Ativan] 0.5 mg tablet 1 tab PO BID PRN (Reason: Anxiety) Xarelto 20 mg Tablet 20 mg PO QPM Rx Instructions: must administer with evening meal midodrine 5 mg tablet 1 tab PO TIDAC PRN (Reason: LOW BLOOD PRESSURE) furosemide [Lasix] 40 mg tablet 40 mg PO DAILY 4 Days Qty: 4 0RF cefuroxime axetil 250 mg tablet 250 mg PO BID 7 Days Qty: 14 0RF
[2022-03-28 14:24] VITALS: BP 118/68; PULSE 77; RESP 19; TEMP 36.6; O2SAT 97; BMI 24.4
--- NOTE | 2022-03-28 14:55 | MHC.CM.ED ---
Received case management consult from Dr Lobato. Patient came [facility] the [facility] from his [place] [facility]. Per Dr Lobato, patient is refusing to return to [place] [facility]. Attempted to reach group cio, Singh via telephone at [phone]. Left message requesting return telephone call to ER. Attempted to reach Service Net nurse, Dayna via telephone at [phone]. Left message requesting returnt telephone call to ER. Patient's HCP is invoked. His daughter is his HCP. Dr Lobato aware. Continue to monitor for d/c needs.
[2022-03-28 15:32] LABS: Basophils Absolute Auto 0.1 X10*3/uL (0.0-0.2); Basophils Percent Auto 0.8 % (0-2); Eosinophils Absolute Auto 0.1 X10*3/uL (0.0-0.4); Eosinophils Percent Auto 0.8 % (0-4); Hematocrit 43.5 % (42.0-52.0); Hemoglobin 13.8 g/dl (14.0-18.0); Imm Gran Abs Auto 0.08 X10*3/uL (0.00-0.03); Imm Gran Pct Auto 0.9 % (0.0-0.4); Lymphocytes Percent Auto 33.8 % (20-40); MANUAL DIFF FLAG NO; Mean Corpuscular HGB Conc 31.7 g/dl (31.0-36.0); Mean Corpuscular Hemoglobin 29.2 pg (27.0-33.0); Mean Platelet Volume 9.6 fL (9.4-12.4); Monocytes Absolute Auto 0.5 X10*3/uL (0.1-1.2); Monocytes Percent Auto 5.4 % (2-11); Neutrophils Absolute Auto 5.2 x10*3/uL (2.0-8.3); Neutrophils Percent Auto 58.3 % (45-73); Platelet Count 229 X10*3/uL (160-400); Red Blood Count 4.73 X10*6/uL (4.60-5.80); Red Cell Distribution Width 14.2 % (11.0-16.0)
[2022-03-28 15:47] LABS: COVID-19 Test Negative (Negative)
[2022-03-28 15:48] VITALS: BP 100/79; PULSE 93; RESP 16; TEMP 37.1; O2SAT 93
[2022-03-28 15:55] LABS: Alanine Aminotransferase 25 U/L (0-40); Albumin Level 4.3 g/dL (3.5-5.0); Alkaline Phosphatase 115 U/L (39-117); Anion Gap 15 (12-20); Aspartate Amino Transferase 19 U/L (5-37); Bilirubin Direct 0.2 mg/dL (0.0-0.5); Bilirubin Total 0.5 mg/dL (0.0-1.0); Blood Urea Nitrogen 10 mg/dL (9-16); Calcium 9.3 mg/dL (8.4-10.2); Carbon Dioxide 28 mmol/L (22-29); Chloride 103 mmol/L (96-108); Creatinine Clr Calc Pharmacy 114.5; Estimated Glomerular Filt Rate > 60; Glucose Random 113 mg/dL (60-115); Magnesium 2.3 mg/dL (1.6-2.6); Potassium 4.2 mmol/L (3.3-5.1); Sodium 142 mmol/L (135-145); Total Protein 6.6 g/dL (6.5-8.0)
--- NOTE | 2022-03-28 17:29 | PC.NURSE ---
This RN spoke with insurance case manager of [facility] Parisa Temple, she states she is the insurance case manager on duty this weekend and would like to speak with case management. She states We would not like Angel back home because of how aggressive he has been towards our nurse. Her number is [phone]
--- NOTE | 2022-03-28 18:25 | MHC.CARE ---
4:50 P.M. CARE Team spoke with patient in ED bed 20, he was alert, oriented and engaged. Pt. stated he had an argument with the weekend nurse at the senior living and she called 911 and reported he was ?out of control?. Pt. reported he knows the nurse went home and would like to return to the senior living. He denied SI/HI/AH/VH. Care management will follow up with transportation to the senior living. Consulted with DAIANA Cooper.
--- NOTE | 2022-03-28 19:03 | PC.NURSE ---
This nurse asked pt if he would like the spaghetti and meatballs provided for dinner, pt states yes. Brought dinner into pts room, pt stated What is this garbage, I want a tuna sandwhich . Pt pushed tray aside and stated I'm going home now . This nurse educated the pt that his fdc feels uncomfortable having him back home tonight. Pt states fuck them, I'm allowed to go home . PA aware
--- NOTE | 2022-03-28 19:20 | PC.NURSE ---
pt becoming agitated stating he wants to go back to his snf, states I don't have to be here all fucking night, you fuckers can't keep me . YARA Gamble aware.
[2022-03-28] MEDS: lamoTRIgine 25 MG TABLET PO (19:40)
[2022-03-28] MEDS: levETIRAcetam 500 MG TABLET PO (19:42)
[2022-03-28] MEDS: Mirtazapine 15 MG TABLET PO (19:42)
[2022-03-28] MEDS: Metoprolol Tartrate 50 MG TABLET PO (19:43)
[2022-03-28] MEDS: Gabapentin 400 MG CAPSULE OG-TUBE (19:43)
[2022-03-28] MEDS: Rivaroxaban 20 MG TABLET PO (19:43)
[2022-03-28] MEDS: Baclofen 10 MG TABLET PO (19:44)
[2022-03-28] MEDS: LORazepam 1 MG TABLET PO (19:45)
[2022-03-28] MEDS: lamoTRIgine 100 MG TABLET PO (19:45)
[2022-03-28] MEDS: Atorvastatin Calcium 40 MG TABLET PO (19:46)
[2022-03-28] MEDS: Docusate Sodium 100 MG CAPSULE PO (19:46)
[2022-03-28] MEDS: OLANZapine 7.5 MG TABLET 15 MG PO (19:47)
[2022-03-28] MEDS: HaloperidoL 1 MG TABLET 2 MG PO (19:48)
[2022-03-28] MEDS: busPIRone HCl 5 MG TABLET 15 MG PO (19:50)
[2022-03-28] MEDS: Melatonin 3 MG TABLET 9 MG PO (20:21)
--- NOTE | 2022-03-28 20:50 | PC.NURSE ---
Pt resting comfortably on stretcher pt states I apologize for the way I spoke to you earlier . Awaiting for pt urine sample at this time
[2022-03-28 22:40] LABS: Appearance Urine Clear; Color Urine Yellow; Glucose Urine UA Negative (Negative); Leukocyte Esterase Urine Negative (Negative); Nitrite Urine Negative (Negative); PH 5.5 (5.0-9.0); Specific Gravity - Urine 1.025 (1.005-1.025); Urine Blood Negative (Negative); Urine Ketones Negative (Negative); Urine Protein Negative (Neg-Trace)
[2022-03-29] MEDS: Omeprazole 20 MG CAPSULE.DR PO (06:24)
[2022-03-29 06:38] VITALS: BP 111/68; PULSE 87; RESP 18; O2SAT 93
--- NOTE | 2022-03-29 08:47 | PC.NURSE ---
pt recieved in bed, sleeping, Arousable to voice and touch. Pt refuses medications and vital signs at this time. Charge nurse aware. Will continue to encourage participation in care
[2022-03-29] MEDS: Docusate Sodium 100 MG CAPSULE PO ×2 (09:53→21:43)
[2022-03-29] MEDS: Sertraline HCL 100 MG TABLET PO (09:54)
[2022-03-29] MEDS: Metoprolol Tartrate 50 MG TABLET PO ×2 (09:54→21:46)
[2022-03-29] MEDS: LORazepam 0.5 MG TABLET PO ×2 (09:54→11:38)
[2022-03-29] MEDS: busPIRone HCl 5 MG TABLET 15 MG PO ×3 (09:54→21:43)
[2022-03-29] MEDS: Furosemide 20 MG TABLET PO (09:54)
[2022-03-29] MEDS: levETIRAcetam 500 MG TABLET PO ×2 (09:55→21:45)
[2022-03-29] MEDS: OLANZapine 5 MG TABLET PO ×2 (09:55→14:10)
[2022-03-29] MEDS: Gabapentin 400 MG CAPSULE OG-TUBE ×3 (09:55→21:45)
[2022-03-29] MEDS: Sertraline HCL 50 MG TABLET PO (09:55)
[2022-03-29] MEDS: Baclofen 10 MG TABLET PO ×2 (09:55→21:43)
[2022-03-29] MEDS: Loratadine 10 MG TABLET PO (09:55)
[2022-03-29] MEDS: HaloperidoL 1 MG TABLET 2 MG PO ×3 (09:56→21:44)
[2022-03-29] MEDS: Midodrine HCl 5 MG TABLET PO ×3 (09:56→16:44)
[2022-03-29] MEDS: Finasteride 5 MG TABLET PO (11:10)
--- NOTE | 2022-03-29 11:17 | MHC.CM.PN ---
Addendum entered by Stacia Hoffman, RN 03/29/22 11:36: ED PROVIDER REPORTING STAFF TOLD HER PT ONLY TARGETING ONE NURSE AND JUST WANTED US TO KEEP PT OVERNIGHT, POWER HOUSE ENGINEER NOT IN AGREEMENT AND REPORTS PT FIGHTING W/PEERS WELL HOWEVER WILL REATTEMPT TO REACH OUT TO SERVICE NET NURSE AND GET BACK TO CM TO PLAN FOR PLAN TO D/C PT BACK TO [facility]. 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 AYANA REQUESTING A PSYCH EVAL TO SEE IF HIS MEDS COULD BE ADJUSTED D/T INCREASED AGGRESSION. CM TO REQUEST FROM ED PROVIDER.
[2022-03-29] MEDS: Acetaminophen 325 MG TABLET 650 MG PO (11:37)
[2022-03-29] MEDS: traMADoL HCL 50 MG TABLET 100 MG PO (14:10)
--- NOTE | 2022-03-29 14:57 | MHC.CM.PN ---
CM RECEIVED CALL FROM PT'S SERVICE NET NURSE WHO IS REPORTING THEY WILL NOT TAKE PT BACK UNTIL HE HAS A PSYCH EVAL D/T PHYSICAL AGGRESSION, PROPERTY DESTRUCTION AND THREATS TOWARDS OTHERS, ED PROVIDER AWARE.
[2022-03-29 16:36] VITALS: BP 106/74; PULSE 76; RESP 16; TEMP 36.6; O2SAT 98
--- NOTE | 2022-03-29 16:37 | PC.NURSE ---
PATIENT GOT MOVED INTO A HOSPITAL BED ,BED BATH GIVEN BY THIS PCT ,FIDE CATHETHER EMPTY ,900 ML OUT PUT ,PATIENT HAD APPLE JUICE FOR SNACK ,PT WATCHING THE HOCKEY GAME ON TELEVISION
[2022-03-29 21:38] VITALS: PULSE 82; RESP 16; TEMP 36.3; O2SAT 98
--- NOTE | 2022-03-29 21:39 | PC.NURSE ---
Addendum entered by Edna Crump 03/29/22 21:53: upon checking pt ,patient fitted sheet has small stain ,virgen care given bedding change ,tex[place] cath empty 400 ml out put ,patient was reposition with pillows . Original Note: pt refused bp ,patient is verbally abusive to staff ,patient is combative towards staff ,patient was check and reposition at this time ,colby mccullough is in room giving meds to pt .
[2022-03-29] MEDS: Atorvastatin Calcium 40 MG TABLET PO (21:43)
[2022-03-29] MEDS: Rivaroxaban 20 MG TABLET PO (21:43)
[2022-03-29] MEDS: lamoTRIgine 100 MG TABLET PO (21:44)
[2022-03-29] MEDS: Mirtazapine 15 MG TABLET PO (21:45)
[2022-03-29] MEDS: LORazepam 1 MG TABLET PO (21:45)
[2022-03-29] MEDS: OLANZapine 7.5 MG TABLET 15 MG PO (21:45)
[2022-03-29] MEDS: Melatonin 3 MG TABLET 9 MG PO (21:46)
[2022-03-29] MEDS: lamoTRIgine 25 MG TABLET PO (21:47)
--- NOTE | 2022-03-30 00:14 | PC.NURSE ---
pt rings and yells nurse since 11pm then when you redirect and reassure him he still does it and calls you names like monkey girl
--- NOTE | 2022-03-30 04:00 | PC.NURSE ---
pt keeps ringing the rush just cause , we keep telling him he is ok food and drinks is offer he doeswant them he states he ringing just cause he is bored and trying to hit people with call rush and telling people to suck his stuff.. very disrespectful pt
[2022-03-30] MEDS: Acetaminophen 325 MG TABLET 650 MG PO (04:16)
[2022-03-30] MEDS: LORazepam 0.5 MG TABLET PO ×2 (08:21→14:27)
[2022-03-30] MEDS: Metoprolol Tartrate 50 MG TABLET PO (08:21)
[2022-03-30] MEDS: Omeprazole 20 MG CAPSULE.DR PO (08:21)
[2022-03-30] MEDS: Gabapentin 400 MG CAPSULE OG-TUBE (08:22)
[2022-03-30] MEDS: HaloperidoL 1 MG TABLET 2 MG PO (08:22)
[2022-03-30] MEDS: Sertraline HCL 50 MG TABLET PO (08:22)
[2022-03-30] MEDS: Loratadine 10 MG TABLET PO (08:22)
[2022-03-30] MEDS: Sertraline HCL 100 MG TABLET PO (08:22)
[2022-03-30] MEDS: levETIRAcetam 500 MG TABLET PO (08:22)
[2022-03-30] MEDS: Midodrine HCl 5 MG TABLET PO (08:22)
[2022-03-30] MEDS: OLANZapine 5 MG TABLET PO (08:22)
[2022-03-30] MEDS: Baclofen 10 MG TABLET PO (08:22)
[2022-03-30] MEDS: busPIRone HCl 5 MG TABLET 15 MG PO (08:22)
[2022-03-30] MEDS: Furosemide 20 MG TABLET PO (08:22)
[2022-03-30] MEDS: Docusate Sodium 100 MG CAPSULE PO (08:22)
[2022-03-30] MEDS: Finasteride 5 MG TABLET PO (08:29)
[2022-03-30 08:33] VITALS: BP 104/74; PULSE 76; RESP 14; TEMP 36.3; O2SAT 98
--- NOTE | 2022-03-30 11:04 | MHC.CARE ---
CARE Team spoke with Parisa ([phone]) detention manger who reported to call Singh([phone]) the Director if Pt is cleared to return to the detention today.
--- NOTE | 2022-03-30 11:27 | P.CNPS_ITS ---
History of Present Illness Date of Service: 03/30/2022 Chief Complaint: BEHAVIORAL ISSUES Reason for Consult: aggression Discussed with referring provider: Yes HPI Narrative: Mr. 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 Pt brought via EMS from due to increase verbal aggression towards one particular staff. Utox is neg. Pt seen in ED, initially presents as somewhat irritable, declining to speak with this typewriter tester as he stated I don't need psychiatrist. Pt then calmer. pt reports he likes the shelter and would like to return there. He reports there is one particular staff, Melissa, who he does not like stating she's always coming to check on me, all the time. Pt reports this staff looks like a gnome. Pt irritable, asking to be discharged back to . Pt with limited mobility, unable to walk but does move his arms at times to punch wall or throw things. But he is bed bound. He denies suicidal or homicidal ideation. Furthermore, he denies any plan or intent to harm staff at , keep in mind he is not able to ambulate. He has no insight into how his behavior affects interaction with staff at and ultimately ends in him coming to this hospital. Per , it was confirmed that main problems are with one particular staff, not with others. Past Psychiatric History: h/o TBI. intermittent agitation. [facility] Medical History Afib Anxiety disorder CHF (congestive heart failure) Cognitive disorder COPD (chronic obstructive pulmonary disease) CVA (cerebrovascular accident) Traumatic brain injury Diagnostics Vital Signs (24Hr): BMI result Body Mass Index 24.4 Labs Results: 03/28/22 15:28 03/28/22 15:28 Mental Status Exam Mental Status Exam Narrative: Appearance: casually groomed, fair hygiene in NAD Behavior:initially irritable, later superficially cooperative psychomotor: no agitation or retardation noted Speech:clear, normal rate/rhythm, volume, spontaneus, loud at times Thought process:mostly linear Thought content:wanting to go back . Mood: good Affect: irritable SI:none HI:none VH/AH: none Delusions:some suspiciousness towards staff (this particular staff) but no overt delusional content noted or reported Insight/judgment:poor x 2. Memory/cog: alert, oriented x 3. underlying TBI not formal testing. Medications Allergies Allergies Allergy/AdvReac Type Severity Reaction Status Date / Time No Known Allergies Allergy Verified 12/15/21 14:53 Assessment & Plan Assessment & Plan (1) Mood disorder as late effect of traumatic brain injury: Status: Acute Code(s): F06.30 - Mood disorder due to known physiological condition, unspecified; S06.9XAS - Unspecified intracranial injury with loss of consciousness status unknown, sequela Plan Mr. Wright is a 57 year-old male with hx of TBI, related mood disorder who resides at . This is 3rd ED visit due to increase aggression towards a particular staff at . Pt denies SI/HI. Denies any plan or intent to hurt himself or the staff at . Pt is bed bound, limited physical aggression. Therefore, no imminent safety concern to require inpatient level of care. Recommend to follow up with OP psych providers, Felicita Thomson to address irritability, explosive behaviors. maybe consider lowering sertraline in event that is increaingly agitation and maybe consider beta rosaline or other mood stabilizer for explosive/verbal aggression, along with impulsivity. PLAN- return to with OP f/u. I spent minutes with the patient and/or on the patient floor today, greater than?50% of which was spent counseling/coordinating care.
--- NOTE | 2022-03-30 12:36 | PC.NURSE ---
spoke with bridgett on phone who is long term director- states expecting return of pt. reports that incident occurs with same staff memeber who is the nurse and is the same nurse everytime. encouraged to f/u with pcp regarding events.
--- NOTE | 2022-03-30 12:48 | PC.NURSE ---
transportation to be arranged by construction secretary
== END 2022-03-30 15:16 | disposition home or self-care (01) ==
PROVIDERS: Emergency Provider Emergency Medicine
DX: R45.1 Restlessness and agitation (principal); Z72.89 Other problems related to lifestyle; Z20.822 Contact with and (suspected) exposure to COVID-19; F41.9 Anxiety disorder, unspecified; I48.91 Unspecified atrial fibrillation; I50.9 Heart failure, unspecified; J44.9 Chronic obstructive pulmonary disease, unspecified; Z99.81 Dependence on supplemental oxygen; Z87.891 Personal history of nicotine dependence; Z87.820 Personal history of traumatic brain injury; Z79.899 Other long term (current) drug therapy; Z79.02 Long term (current) use of antithrombotics/antiplatelets; Z79.01 Long term (current) use of anticoagulants
CPT/HCPCS: 80048; 80076; 81003; 83735; 85025; 87635; 99284; 99285

== ENCOUNTER 2022-04-04 09:35 | Emergency (ER) | payer MEDICAID, SELFPAY ==
--- NOTE | ~2022-04-04 | US_ITS ---
EXAMINATION: US VENOUS ULTRASOUND WITH DOPPLER LOWER EXTREMITY, RIGHT CLINICAL INFORMATION: Leg pain. Evaluate for deep vein thrombosis. COMPARISON: None TECHNIQUE: Ultrasound of the deep veins is performed from the hip to the calf with compression sonography and color and pulse Doppler assessment. Spectral analysis with color-flow imaging is performed. hybrid technologist reports that examination was partially limited due to lack of patient cooperation. The patient reportedly kept moving the leg during the exam. FINDINGS: The common femoral vein is compressible and exhibits a normal phasic waveform; this suggests that the iliac veins are widely patent above. Within the proximal thigh, the visualized profunda femoris vein is normal. The examined greater saphenous vein and saphenofemoral junction are normal. Superficial femoral vein is patent in the proximal, mid and distal thigh. Popliteal vein is normal to the level of the trifurcation. On compression hinojosa scale and color Doppler images, the visualized posterior tibial and peroneal veins are grossly patent. No evidence of Du's cyst. US/US venous duplex LE RT IMPRESSION: No evidence of deep vein thrombosis in the right lower extremity.
--- NOTE | ~2022-04-04 | CT_ITS ---
EXAMINATION: CT head/brain wo IV con CLINICAL INFORMATION: Reason for Exam rt leg nubnes COMPARISON: CT head without contrast 02/06/2022 TECHNIQUE: Contiguous axial imaging was performed from the skull base to vertex without intravenous contrast. Sagittal and coronal reformatted images were obtained. This CT examination was performed using dose optimization techniques as appropriate, variously including the following: * Automated exposure control * Adjustment of mA and/or kV according to patient size (this includes techniques or standardized protocols for targeted exams where dose is matched to indication/reason for exam; i.e. extremities or head) Use of iterative reconstruction technique DLP: 867 mGy-cm FINDINGS: No acute osseous or soft tissue abnormality. The mastoid air cells and visualized portions of the paranasal sinuses are well aerated. There is no evidence of acute intracranial hemorrhage or territorial infarction. No abnormal mass effect or midline shift is seen. No extra-axial fluid collections are identified. No hydrocephalus. Ex vacuo dilatation of the right lateral ventricle related to right cerebral hemisphere volume loss. Large chronic right MCA territory infarct. Postsurgical changes from right craniotomy with stable underlying linear extra-axial hyperdensity, compatible with chronic dural thickening. CT/CT head/brain wo IV con IMPRESSION: 1. No acute intracranial abnormality including hemorrhage, mass effect, hydrocephalus, or acute territorial edematous infarction. 2. Large chronic right MCA infarct and postsurgical changes from right craniotomy
[2022-04-04 09:50] VITALS: BP 118/72; BP 97/60; PULSE 90; RESP 18; TEMP 36.9; O2SAT 96; O2SAT 97; BMI 26.5
--- NOTE | 2022-04-04 10:10 | ECG_ITS ---
Test Reason : CP Blood Pressure : / mmHG Vent. Rate : 091 BPM Atrial Rate : 000 BPM P-R Int : 000 ms QRS Dur : 078 ms QT Int : 350 ms P-R-T Axes : 000 017 054 degrees QTc Int : 430 ms Atrial fibrillation Low voltage QRS Intra-ventricular conduction delay Abnormal ECG When compared with ECG of 21-MAR-2022 14:15, Nonspecific T wave abnormality no longer evident in Anterior leads Referred By: Gordo Rodriguez Electronically Signed By:PAMELA BUCK MD
--- NOTE | 2022-04-04 10:11 | ED.GENADULT ---
HPI - General Adult General Chief complaint: General Medical Stated complaint: pain/numbness right leg Time Seen by Provider: 04/04/22 09:53 Source: patient and EMS Mode of arrival: EMS Limitations: no limitations History of Present Illness HPI narrative: This is a 57 year years old male was history of TBI, CVA with left hemiplegia, COPD O2 dependent, anxiety, who is not ambulatory baseline, presented to emergency department via ambulance with chief complaint of right lower extremity pain since yesterday. Patient is anticoagulated with Xarelto for AFib Onset (ago): day(s) (1) Location: lower extremity (right) Radiation: non-radiation Severity: mild Quality: burning Pain Consistency: constant Exacerbating factors: none Associated symptoms: denies other symptoms Related Data Home Medications Medication Instructions Recorded Confirmed atorvastatin 40 mg tablet 40 mg PO BEDTIME 02/28/22 03/28/22 baclofen 10 mg tablet 10 mg PO BID 02/28/22 03/28/22 buspirone 15 mg tablet 1 tab PO TID 02/28/22 03/28/22 gabapentin 400 mg capsule 400 mg TID 02/28/22 03/28/22 levetiracetam 500 mg tablet 500 mg PO BID 02/28/22 03/28/22 lorazepam 0.5 mg tablet (Ativan) 1 tab PO DAILY 02/28/22 03/28/22 lorazepam 1 mg tablet (Ativan) 1 tab PO BEDTIME 02/28/22 03/28/22 melatonin 5 mg capsule 2 cap PO BEDTIME 02/28/22 03/28/22 metoprolol tartrate 50 mg tablet 50 mg PO BID 02/28/22 03/28/22 mirtazapine 15 mg tablet 15 mg PO BEDTIME 02/28/22 03/28/22 olanzapine 15 mg tablet (Zyprexa) 1 tab PO BEDTIME 02/28/22 03/28/22 pantoprazole 40 mg tablet,delayed 40 mg PO DAILY@0630 02/28/22 03/28/22 release cetirizine 10 mg tablet 10 mg PO DAILY 03/01/22 03/28/22 docusate sodium 100 mg capsule 100 mg PO BID 03/01/22 03/28/22 finasteride 5 mg tablet 5 mg PO DAILY 03/01/22 03/28/22 furosemide 20 mg tablet 20 mg PO DAILY PRN fluid overload 03/01/22 03/28/22 haloperidol 2 mg tablet 1 tab PO TID 03/01/22 03/28/22 lorazepam 0.5 mg tablet (Ativan) 1 tab PO DAILY PRN Anxiety 03/01/22 03/28/22 midodrine 5 mg tablet 1 tab PO TIDAC 03/01/22 03/28/22 olanzapine 5 mg tablet (Zyprexa) 5 mg PO BID@0900,1500 03/01/22 03/28/22 rivaroxaban 20 mg tablet (Xarelto) 20 mg PO BEDTIME 03/01/22 03/28/22 acetaminophen 325 mg tablet 650 mg PO Q4H PRN headache/fever 03/28/22 03/28/22 albuterol sulfate 2.5 mg/3 mL 2.5 mg inhalation TID PRN 03/28/22 03/28/22 (0.083 %) solution for nebulization Shortness Of Breath azelastine 0.05 % eye drops 1 drp ophthalmic (eye) BID PRN 03/28/22 03/28/22 Allergy Symptoms calcium carbonate 430 mg calcium 430 mg PO TID PRN Indigestion 03/28/22 03/28/22 (1,000 mg) chewable tablet furosemide 20 mg tablet 20 mg PO DAILY 03/28/22 03/28/22 lamotrigine 100 mg tablet 100 mg PO BEDTIME 03/28/22 03/28/22 (Lamictal) lamotrigine 25 mg tablet (Lamictal) 25 mg PO BEDTIME 03/28/22 03/28/22 menthol 4 % topical gel (Biofreeze 1 appl topical BID 03/28/22 03/28/22 (menthol)) menthol 4 % topical gel (Biofreeze 1 appl topical Q2H PRN Pain (Scale 03/28/22 03/28/22 (menthol)) Score 1-3) nitroglycerin 0.4 mg sublingual 0.4 mg sublingual Q5M PRN Chest 03/28/22 03/28/22 tablet Pain polyvinyl alcohol 1.4 % eye drops 1 drp ophthalmic (eye) DAILY 03/28/22 03/28/22 pseudoephedrine-guaifenesin ER 60 1 tab PO BID PRN Congestion 03/28/22 03/28/22 mg-600 mg tablet,extend release 12hr (Mucus D) sertraline 100 mg tablet 100 mg PO DAILY 03/28/22 03/28/22 sertraline 50 mg tablet (Zoloft) 50 mg PO DAILY 03/28/22 03/28/22 tramadol 100 mg tablet 100 mg PO Q6H PRN Back Pain 03/28/22 03/28/22 Previous Rx's Medication Instructions Recorded cefuroxime axetil 250 mg tablet 250 mg PO BID 7 days #14 tabs 03/21/22 Allergies Allergy/AdvReac Type Severity Reaction Status Date / Time No Known Allergies Allergy Verified 12/15/21 14:53 Review of Systems Constitutional: Constitutional: Reports no additional constitutional complaints and Denies chills ENT: Reports system reviewed and no additional complaints, except as documented Cardiovascular: Cardiovascular: Denies chest pain and Denies dyspnea Respiratory: Respiratory: Denies cough and Denies dyspnea Gastrointestinal: Gastrointestinal: Denies vomiting PMFSH Past Medical History Medical History Afib Anxiety disorder CHF (congestive heart failure) Cognitive disorder COPD (chronic obstructive pulmonary disease) CVA (cerebrovascular accident) Traumatic brain injury Social History Social History Alcohol intake: never Patient Tobacco Use Status: Former Tobacco user Use of substances other than those prescribed or required for medical reasons: No Advance Directives: Yes Advance Directives on File: Yes Advance Directives Date on File: 11/11/21 Physical Exam ED Vital Signs: Vital Signs - 24 hr 04/04/22 09:50 04/04/22 12:00 04/04/22 14:00 Temperature 98.5 F Pulse Rate 90 Respiratory Rate 18 18 16 Blood Pressure 97/60 Pulse Oximetry 96 Oxygen Delivery Method Nasal Cannula BMI result Body Mass Index 26.5 Const Other: He is not in distress, he is not toxic-appearing, he is very anxious General: anxious Orientation/consciousness: patient oriented x3 HENMT Head: Yes normal to inspection General nose exam: Normal external nose present Face and sinus: Yes normal facial exam Neck Neck: Yes normal visual inspection Chest Chest palpation & inspection: normal inspection of the chest Resp Effort & Inspection: normal respiratory effort Auscultation: clear to auscultation bilaterally Cardio Jugular venous distension: no JVD Rate: regular rate Rhythm: regular rhythm GI Inspection: Yes normal to inspection Palpation (GI): Soft to palpation, not firm, nontender and no guarding Skin General skin exam: no rashes or lesions noted and elasticity normal Lesions: no lesions Rashes: no rashes Neuro Other: He has a dense left hemiplegia General: patient oriented x3 Extrem Other: Examination of the right lower extremity no swelling noted, he has good pedal pulses. No rash seen. Course Reevaluation(s) Reevaluation #1: Remain stable ,labs OK,head ct unchanged,leg US no DVT will d/c back to alf Time: 16:43 Reevaluation #2: waiting for ambulance,I am off shift now I made Dr Lobato aware of the pt Medical Decision Making Lab Data Result diagrams: 04/04/22 11:16 04/04/22 11:16 Labs: Lab Results 04/04/22 04/04/22 04/04/22 Range/Units 10: 10:22 11:16 WBC 9.5 8.8 (4.8-10.8) X10*3/uL RBC 4.80 4.86 (4.60-5.80) X10*6/uL Hgb 14.0 14.2 (14.0-18.0) g/dl Hct 44.7 45.5 (42.0-52.0) % MCV 93.1 93.6 (80.0-98.0) fL MCH 29.2 29.2 (27.0-33.0) pg MCHC 31.3 31.2 (31.0-36.0) g/dl RDW 14.6 14.4 (11.0-16.0) % Plt Count 264 255 (160-400) X10*3/uL MPV 9.7 9.9 (9.4-12.4) fL Immature Gran % (Auto) 1.0 H 1.0 H (0.0-0.4) % Neut % (Auto) 53.9 56.9 (45-73) % Lymph % (Auto) 36.6 34.7 (20-40) % [place] % (Auto) 6.0 5.6 (2-11) % Eos % (Auto) 1.7 1.1 (0-4) % Baso % (Auto) 0.8 0.7 (0-2) % Lymph # (Auto) 3.5 3.1 (1.2-4.9) X10*3/uL [place] # (Auto) 0.6 0.5 (0.1-1.2) X10*3/uL Eos # (Auto) 0.2 0.1 (0.0-0.4) X10*3/uL Baso # (Auto) 0.1 0.1 (0.0-0.2) X10*3/uL Abs Immat Gran (auto) 0.09 H 0.09 H (0.00-0.03) X10*3/uL Absolute Neuts (auto) 5.1 5.0 (2.0-8.3) x10*3/uL Absolute Nucleated RBC 0.000 0.000 (0.0-0.012) X10*3/uL Nucleated RBC % (auto) 0.0 0.0 (0.0-0.2) /100WBC PT (10.0-13.1) SEC INR (0.9-1.1) APTT (26.0-36.4) SEC Sodium 141 (135-145) mmol/L Potassium 4.4 (3.3-5.1) mmol/L Chloride 103 (96-108) mmol/L Carbon Dioxide 28 (22-29) mmol/L Anion Gap 14 (12-20) BUN 12 (9-16) mg/dL Creatinine 0.86 (0.5-1.4) mg/dL Estim Creat Clear Calc 100.2 Estimated GFR > 60 Random Glucose 105 (60-115) mg/dL Calcium 9.4 (8.4-10.2) mg/dL Total Bilirubin 0.4 (0.0-1.0) mg/dL AST 19 (5-37) U/L ALT 24 (0-40) U/L Alkaline Phosphatase 126 H (39-117) U/L Total Protein 6.8 (6.5-8.0) g/dL Albumin 4.3 (3.5-5.0) g/dL 04/04/22 04/04/22 04/04/22 Range/Units 11:16 11:16 11:16 WBC (4.8-10.8) X10*3/uL RBC (4.60-5.80) X10*6/uL Hgb (14.0-18.0) g/dl Hct (42.0-52.0) % MCV (80.0-98.0) fL MCH (27.0-33.0) pg MCHC (31.0-36.0) g/dl RDW (11.0-16.0) % Plt Count (160-400) X10*3/uL MPV (9.4-12.4) fL Immature Gran % (Auto) (0.0-0.4) % Neut % (Auto) (45-73) % Lymph % (Auto) (20-40) % [place] % (Auto) (2-11) % Eos % (Auto) (0-4) % Baso % (Auto) (0-2) % Lymph # (Auto) (1.2-4.9) X10*3/uL [place] # (Auto) (0.1-1.2) X10*3/uL Eos # (Auto) (0.0-0.4) X10*3/uL Baso # (Auto) (0.0-0.2) X10*3/uL Abs Immat Gran (auto) (0.00-0.03) X10*3/uL Absolute Neuts (auto) (2.0-8.3) x10*3/uL Absolute Nucleated RBC (0.0-0.012) X10*3/uL Nucleated RBC % (auto) (0.0-0.2) /100WBC PT 15.3 H (10.0-13.1) SEC INR 1.3 H (0.9-1.1) APTT 40.3 H (26.0-36.4) SEC Sodium 142 (135-145) mmol/L Potassium 4.4 (3.3-5.1) mmol/L Chloride 104 (96-108) mmol/L Carbon Dioxide 29 (22-29) mmol/L Anion Gap 13 (12-20) BUN 12 (9-16) mg/dL Creatinine 0.86 (0.5-1.4) mg/dL Estim Creat Clear Calc 100.2 Estimated GFR > 60 Random Glucose 112 (60-115) mg/dL Calcium 9.2 (8.4-10.2) mg/dL Total Bilirubin 0.5 (0.0-1.0) mg/dL AST 18 (5-37) U/L ALT 24 (0-40) U/L Alkaline Phosphatase 125 H (39-117) U/L Total Protein 6.7 (6.5-8.0) g/dL Albumin 4.3 (3.5-5.0) g/dL Imaging Data CT scan - head: Radiologist's impression: DLP: 867? mGy-cm FINDINGS: No acute osseous or soft tissue abnormality. The mastoid air cells and visualized portions of the paranasal sinuses are well aerated. There is no evidence of acute intracranial hemorrhage or territorial infarction. No abnormal mass effect or midline shift is seen. No extra-axial fluid collections are identified. No hydrocephalus. Ex vacuo dilatation of the right lateral ventricle related to right cerebral hemisphere volume loss.? Large chronic right MCA territory infarct. Postsurgical changes from right craniotomy with stable underlying linear extra-axial hyperdensity, compatible with chronic dural thickening. ? CT/CT head/brain wo IV con IMPRESSION: ? 1.? No acute intracranial abnormality including hemorrhage, mass effect, hydrocephalus, or acute territorial edematous infarction. ? 2.? Large chronic right MCA infarct and postsurgical changes from right craniotomy Venous US: Radiologist's impression: reports that examination was partially limited due to lack of patient cooperation. The patient reportedly kept moving the leg during the exam. FINDINGS:? The common femoral vein is compressible and exhibits a normal phasic waveform; this suggests that the iliac veins are widely patent above.? Within the proximal thigh, the visualized profunda femoris vein is normal. The examined greater saphenous vein and saphenofemoral junction are normal.? Superficial femoral vein is patent in the proximal, mid and distal thigh.? Popliteal vein is normal to the level of the trifurcation.? On compression hinojosa scale and color Doppler images, the visualized posterior tibial and peroneal veins are grossly patent.? No evidence of Du's cyst. US/US venous duplex LE RT IMPRESSION:? No evidence of deep vein thrombosis in the right lower extremity. ? ? Dictated By: Shashi Barnett MD Signed By: <Electronically signed by Shashi Barnett MD in OV> 04/04/22 1157 ECG Data Attestation: I personally reviewed and interpreted this ECG as follows: Pacemaker model: Atrial fibrillation rate [address]-T changes Discharge Plan Discharge Clinical Impression: Acute leg pain Patient Disposition: Home, Self-Care Instructions: Leg Pain (ED) Additional Instructions: Follow-up with your primary care physician return if you worse any concern Prescriptions: No Action lorazepam [Ativan] 0.5 mg tablet 1 tab PO DAILY olanzapine [Zyprexa] 15 mg tablet 1 tab PO BEDTIME lorazepam [Ativan] 1 mg tablet 1 tab PO BEDTIME buspirone 15 mg tablet 1 tab PO TID melatonin 5 mg capsule 2 cap PO BEDTIME mirtazapine 15 mg Tablet 15 mg PO BEDTIME atorvastatin 40 mg Tablet 40 mg PO BEDTIME gabapentin 400 mg Capsule 400 mg TID baclofen 10 mg Tablet 10 mg PO BID levetiracetam 500 mg Tablet 500 mg PO BID pantoprazole 40 mg Tablet,Delayed Release (Dr/Ec) 40 mg PO DAILY@0630 metoprolol tartrate 50 mg Tablet 50 mg PO BID cetirizine 10 mg Tablet 10 mg PO DAILY olanzapine [Zyprexa] 5 mg tablet 5 mg PO BID@0900,1500 docusate sodium 100 mg Capsule 100 mg PO BID furosemide 20 mg Tablet 20 mg PO DAILY PRN (Reason: fluid overload) haloperidol 2 mg tablet 1 tab PO TID finasteride 5 mg Tablet 5 mg PO DAILY lorazepam [Ativan] 0.5 mg tablet 1 tab PO DAILY PRN (Reason: Anxiety) Xarelto 20 mg Tablet 20 mg PO BEDTIME Rx Instructions: must administer with evening meal midodrine 5 mg tablet 1 tab PO TIDAC azelastine 0.05 % Drops 1 drp OPHTHALMIC (EYE) BID PRN (Reason: Allergy Symptoms) acetaminophen 325 mg Tablet 650 mg PO Q4H PRN (Reason: headache/fever) albuterol sulfate 2.5 mg /3 mL (0.083 %) Solution For Nebulization 2.5 mg INHALATION TID PRN (Reason: Shortness Of Breath) polyvinyl alcohol 1.4 % Drops 1 drp OPHTHALMIC (EYE) DAILY sertraline 100 mg Tablet 100 mg PO DAILY Rx Instructions: tdd = 150 mg pseudoephedrine-guaifenesin [Mucus D] 60-600 mg Tablet Extended Release 12 Hr 1 tab PO BID PRN (Reason: Congestion) lamotrigine [Lamictal] 25 mg Tablet 25 mg PO BEDTIME Rx Instructions: tdd = 125 mg nitroglycerin 0.4 mg Tablet, Sublingual 0.4 mg SUBLINGUAL Q5M PRN (Reason: Chest Pain) Rx Instructions: do not exceed 3 doses per episode sertraline [Zoloft] 50 mg tablet 50 mg PO DAILY Rx Instructions: tdd = 150 mg Biofreeze (menthol) 4 % Gel 1 appl TOPICAL BID Rx Instructions: apply a thin layer mid to lower back Biofreeze (menthol) 4 % Gel 1 appl TOPICAL Q2H PRN (Reason: Pain (Scale Score 1-3)) calcium carbonate 430 mg calcium (1,000 mg) Tablet,Chewable 430 mg PO TID PRN (Reason: Indigestion) tramadol 100 mg Tablet 100 mg PO Q6H PRN (Reason: Back Pain) furosemide 20 mg Tablet 20 mg PO DAILY lamotrigine [Lamictal] 100 mg Tablet 100 mg PO BEDTIME cefuroxime axetil 250 mg tablet 250 mg PO BID 7 Days Qty: 14 0RF Rx Instructions: 03/23/22 to 03/30/22
[2022-04-04 10:24] LABS: MANUAL DIFF FLAG NO
[2022-04-04 10:27] LABS: Basophils Absolute Auto 0.1 X10*3/uL (0.0-0.2); Basophils Percent Auto 0.8 % (0-2); Eosinophils Absolute Auto 0.2 X10*3/uL (0.0-0.4); Eosinophils Percent Auto 1.7 % (0-4); Hematocrit 44.7 % (42.0-52.0); Imm Gran Abs Auto 0.09 X10*3/uL (0.00-0.03); Lymphocytes Absolute Auto 3.5 X10*3/uL (1.2-4.9); Lymphocytes Percent Auto 36.6 % (20-40); Mean Corpuscular HGB Conc 31.3 g/dl (31.0-36.0); Mean Corpuscular Hemoglobin 29.2 pg (27.0-33.0); Mean Corpuscular Volume 93.1 fL (80.0-98.0); Mean Platelet Volume 9.7 fL (9.4-12.4); Monocytes Absolute Auto 0.6 X10*3/uL (0.1-1.2); Neutrophils Absolute Auto 5.1 x10*3/uL (2.0-8.3); Neutrophils Percent Auto 53.9 % (45-73); Platelet Count 264 X10*3/uL (160-400); Red Cell Distribution Width 14.6 % (11.0-16.0); White Blood Count 9.5 X10*3/uL (4.8-10.8)
--- NOTE | 2022-04-04 10:40 | PC.NURSE ---
Diana Padron at [facility] [phone] (point of contact) want sot be notified about any changes and before discharge. According to Diana the patient hashad an increase in behaviours since . He contacted he police last night and this morning. The patient was the person who contacted EMS and the staff at the retirement did not know anyhrting was wrong with the client. The patient was reporting right leg numbness but reported right leg pain and numbness to EMS, this RN and Dr. Rodriguez. Dr. Rodriguez notified about interaction with [facility]
--- NOTE | 2022-04-04 10:43 | PC.NURSE ---
pt brought in by ems, states he needed to be changed due to having a bowel movement, pt changed, removed soiled linens, pt wiped clean. pt given new clean linens, dry pads, pt gown and repositioned in bed. pt has [place] [facility]. call [facility] at side of patient
[2022-04-04 10:50] LABS: Alanine Aminotransferase 24 U/L (0-40); Albumin Level 4.3 g/dL (3.5-5.0); Alkaline Phosphatase 126 U/L (39-117); Anion Gap 14 (12-20); Aspartate Amino Transferase 19 U/L (5-37); Bilirubin Total 0.4 mg/dL (0.0-1.0); Blood Urea Nitrogen 12 mg/dL (9-16); Calcium 9.4 mg/dL (8.4-10.2); Carbon Dioxide 28 mmol/L (22-29); Chloride 103 mmol/L (96-108); Creatinine Clr Calc Pharmacy 100.2; Estimated Glomerular Filt Rate > 60; Glucose Random 105 mg/dL (60-115); Potassium 4.4 mmol/L (3.3-5.1); Sodium 141 mmol/L (135-145); Total Protein 6.8 g/dL (6.5-8.0)
[2022-04-04] MEDS: LORazepam 0.5 MG TABLET PO (11:11)
[2022-04-04] MEDS: oxyCODONE HCl Immed Release 5 MG TABLET PO (11:11)
[2022-04-04 11:26] LABS: MANUAL DIFF FLAG NO
[2022-04-04 11:37] LABS: INTERNATIONAL NORM RATIO 1.3 (0.9-1.1); Prothrombin Time 15.3 SEC (10.0-13.1)
[2022-04-04 11:40] LABS: Partial Thromboplastin Time 40.3 SEC (26.0-36.4)
[2022-04-04 11:41] LABS: Alanine Aminotransferase 24 U/L (0-40); Albumin Level 4.3 g/dL (3.5-5.0); Alkaline Phosphatase 125 U/L (39-117); Anion Gap 13 (12-20); Aspartate Amino Transferase 18 U/L (5-37); Bilirubin Total 0.5 mg/dL (0.0-1.0); Blood Urea Nitrogen 12 mg/dL (9-16); Calcium 9.2 mg/dL (8.4-10.2); Carbon Dioxide 29 mmol/L (22-29); Chloride 104 mmol/L (96-108); Creatinine Clr Calc Pharmacy 100.2; Estimated Glomerular Filt Rate > 60; Glucose Random 112 mg/dL (60-115); Potassium 4.4 mmol/L (3.3-5.1); Sodium 142 mmol/L (135-145); Total Protein 6.7 g/dL (6.5-8.0)
[2022-04-04 11:42] LABS: Basophils Absolute Auto 0.1 X10*3/uL (0.0-0.2); Basophils Percent Auto 0.7 % (0-2); Eosinophils Absolute Auto 0.1 X10*3/uL (0.0-0.4); Eosinophils Percent Auto 1.1 % (0-4); Hematocrit 45.5 % (42.0-52.0); Hemoglobin 14.2 g/dl (14.0-18.0); Imm Gran Abs Auto 0.09 X10*3/uL (0.00-0.03); Lymphocytes Absolute Auto 3.1 X10*3/uL (1.2-4.9); Lymphocytes Percent Auto 34.7 % (20-40); Mean Corpuscular HGB Conc 31.2 g/dl (31.0-36.0); Mean Corpuscular Hemoglobin 29.2 pg (27.0-33.0); Mean Corpuscular Volume 93.6 fL (80.0-98.0); Mean Platelet Volume 9.9 fL (9.4-12.4); Monocytes Absolute Auto 0.5 X10*3/uL (0.1-1.2); Monocytes Percent Auto 5.6 % (2-11); Neutrophils Percent Auto 56.9 % (45-73); Platelet Count 255 X10*3/uL (160-400); Red Blood Count 4.86 X10*6/uL (4.60-5.80); Red Cell Distribution Width 14.4 % (11.0-16.0); White Blood Count 8.8 X10*3/uL (4.8-10.8)
[2022-04-04 12:00] VITALS: RESP 18
--- NOTE | 2022-04-04 12:20 | PC.NURSE ---
Pt requires frequent repositioning in bed.
--- NOTE | 2022-04-04 12:59 | PC.NURSE ---
Care team notified of fdc concerns of increasing agitation. Verbal order for psych consult given by md otoole.
--- NOTE | 2022-04-04 13:34 | PC.NURSE ---
Contact Made to Bianca Adorno, Plan at this time is to contact service net regarding inpt critera and safety risks in outpatient setting.
[2022-04-04] MEDS: HaloperidoL 5 MG TABLET PO (13:45)
[2022-04-04 14:00] VITALS: RESP 16
--- NOTE | 2022-04-04 14:18 | PC.NURSE ---
contact made to [facility] house phone. Spoke to staff member Kiki: [facility] [phone]
--- NOTE | 2022-04-04 14:23 | PC.NURSE ---
pt educated to hourly rounding process.
--- NOTE | 2022-04-04 14:29 | PC.NURSE ---
Multiple attempts have been made to contact halfway director, service net director of opp w/o success.
--- NOTE | 2022-04-04 14:49 | PC.NURSE ---
Contact made to Cortney from [facility] at [phone], education provided regarding need for outpatient intervention and follow up. Ambulance being booked at this time for transport back home.
[2022-04-04] MEDS: LORazepam 1 MG TABLET PO (16:08)
--- NOTE | 2022-04-04 17:12 | PM.PSYCN ---
History of Present Illness Date of Service: 04/04/2022 Chief Complaint: pain/numbness right leg Reason for Consult: increase aggression Discussed with referring provider: Yes Sources of Information: patient interviewed, chart reviewed and crisis/core team assessment reviewed HPI Narrative: Mr. Wright is a 57 year-old male with hx of TBI late effect mood disorder. Pt brought to [facility] ED via EMS due to right leg pain. Medically cleared but requested psych consult re: increase agitation, paranoid. Pt seen in ED, Pt is screaming, demanding needs are met immediately. Pt reports same staff he always has a problems with, he does not trust. He states (as before) that this person is noisy. He does say that he thinks he may be being poisoned at the and this time pt states that he does not want to return to - 'at least for few days' He goes on stating that someone is stealing my soda. Pt demands this machine sign writer call senior assistant manager and have him talk to him as he states he wants to live somewhere else. He denies SI/HI. Past Psychiatric History: h/o TBI. intermittent agitation. Review of Systems Constitutional: Reports no additional constitutional complaints and Denies chills Reports system reviewed and no additional complaints, except as documented Cardiovascular: Denies chest pain and Denies dyspnea Respiratory: Denies cough and Denies dyspnea Gastrointestinal: Denies vomiting [facility] Medical History Afib Anxiety disorder CHF (congestive heart failure) Cognitive disorder COPD (chronic obstructive pulmonary disease) CVA (cerebrovascular accident) Traumatic brain injury Diagnostics Vital Signs (24Hr): Vital Signs - 24 hr 04/04/22 09:50 04/04/22 12:00 04/04/22 14:00 Temperature 98.5 F Pulse Rate 90 Respiratory Rate 18 18 16 Blood Pressure 97/60 Pulse Oximetry 96 Oxygen Delivery Method Nasal Cannula BMI result Body Mass Index 26.5 Labs Results: 04/04/22 11:16 04/04/22 11:16 Labs: Laboratory Results - last 48 hr 04/04/22 04/04/22 04/04/22 10:22 10:22 11:16 WBC 9.5 8.8 RBC 4.80 4.86 Hgb 14.0 14.2 Hct 44.7 45.5 MCV 93.1 93.6 MCH 29.2 29.2 MCHC 31.3 31.2 RDW 14.6 14.4 Plt Count 264 255 MPV 9.7 9.9 Immature Gran % (Auto) 1.0 H 1.0 H Neut % (Auto) 53.9 56.9 Lymph % (Auto) 36.6 34.7 [place] % (Auto) 6.0 5.6 Eos % (Auto) 1.7 1.1 Baso % (Auto) 0.8 0.7 Lymph # (Auto) 3.5 3.1 [place] # (Auto) 0.6 0.5 Eos # (Auto) 0.2 0.1 Baso # (Auto) 0.1 0.1 Abs Immat Gran (auto) 0.09 H 0.09 H Absolute Neuts (auto) 5.1 5.0 Absolute Nucleated RBC 0.000 0.000 Nucleated RBC % (auto) 0.0 0.0 PT INR APTT Sodium 141 Potassium 4.4 Chloride 103 Carbon Dioxide 28 Anion Gap 14 BUN 12 Creatinine 0.86 Estim Creat Clear Calc 100.2 Estimated GFR > 60 Random Glucose 105 Calcium 9.4 Total Bilirubin 0.4 AST 19 ALT 24 Alkaline Phosphatase 126 H Total Protein 6.8 Albumin 4.3 04/04/22 04/04/22 04/04/22 11:16 11:16 11:16 WBC RBC Hgb Hct MCV MCH MCHC RDW Plt Count MPV Immature Gran % (Auto) Neut % (Auto) Lymph % (Auto) [place] % (Auto) Eos % (Auto) Baso % (Auto) Lymph # (Auto) [place] # (Auto) Eos # (Auto) Baso # (Auto) Abs Immat Gran (auto) Absolute Neuts (auto) Absolute Nucleated RBC Nucleated RBC % (auto) PT 15.3 H INR 1.3 H APTT 40.3 H Sodium 142 Potassium 4.4 Chloride 104 Carbon Dioxide 29 Anion Gap 13 BUN 12 Creatinine 0.86 Estim Creat Clear Calc 100.2 Estimated GFR > 60 Random Glucose 112 Calcium 9.2 Total Bilirubin 0.5 AST 18 ALT 24 Alkaline Phosphatase 125 H Total Protein 6.7 Albumin 4.3 Imaging Radiology Impressions: ITS Impressions Venous Duplex 04/04/22 11:03 IMPRESSION: No evidence of deep vein thrombosis in the right lower extremity. Head CT 04/04/22 11:57 IMPRESSION: 1. No acute intracranial abnormality including hemorrhage, mass effect, hydrocephalus, or acute territorial edematous infarction. 2. Large chronic right MCA infarct and postsurgical changes from right craniotomy Mental Status Exam Mental Status Exam Narrative: Appearance: casually groomed, fair hygiene in NAD Behavior:initially irritable, later superficially cooperative psychomotor: no agitation or retardation noted Speech:clear, normal rate/rhythm, volume, spontaneus, loud at times Thought process:mostly linear Thought content:wanting to go back GH. Mood: good Affect: irritable SI:none HI:none VH/AH: none Delusions:some suspiciousness towards staff (this particular staff) but no overt delusional content noted or reported Insight/judgment:poor x 2. Memory/cog: alert, oriented x 3. underlying TBI not formal testing. Medications Allergies Allergies Allergy/AdvReac Type Severity Reaction Status Date / Time No Known Allergies Allergy Verified 12/15/21 14:53 Assessment & Plan Assessment & Plan (1) Mood disorder as late effect of traumatic brain injury: Status: Acute Code(s): F06.30 - Mood disorder due to known physiological condition, unspecified; S06.9XAS - Unspecified intracranial injury with loss of consciousness status unknown, sequela Plan PLAN Recommend to f/u with OP psychiatric provider- consider tapering him off antidepressant as it increases agitation, underlying paranoid. May increase olanzapine to 20mg po BID. No need for inpt psych- as no imminent safety concern in terms of harm to others or self. I spent minutes with the patient and/or on the patient floor today, greater than?50% of which was spent counseling/coordinating care.
--- NOTE | 2022-04-04 19:10 | PC.NURSE ---
patient frequently having outbursts . yelling . constant redirection and repositioning .requiring constant attention by nursing staff . vss . patient was medically cleared prior to discharge back to facility .
[2022-04-04 19:14] VITALS: BP 100/65; PULSE 89; RESP 16; O2SAT 96
== END 2022-04-04 19:15 | disposition home or self-care (01) ==
PROVIDERS: Emergency Provider Emergency Medicine
DX: M79.604 Pain in right leg (principal); R20.0 Anesthesia of skin; R60.0 Localized edema; R51.9 Headache, unspecified; J44.9 Chronic obstructive pulmonary disease, unspecified; Z87.891 Personal history of nicotine dependence; Z79.899 Other long term (current) drug therapy; Z99.81 Dependence on supplemental oxygen
CPT/HCPCS: 36415; 70450; 80053; 85025; 85610; 85730; 93005; 93971; 99284

== ENCOUNTER 2022-05-29 17:48 | Emergency (ER) | payer MEDICAID, SELFPAY ==
[2022-05-29 18:12] VITALS: BP 115/82; BP 131/83; PULSE 110; PULSE 79; RESP 20; TEMP 36.9; O2SAT 95; BMI 32.8
[2022-05-29 18:49] VITALS: BP 102/71; PULSE 84; RESP 16; TEMP 36.8; O2SAT 94
--- NOTE | 2022-05-29 19:00 | PC.NURSE ---
This quality analyst/technical writer assumed care of this PT at 1900.
--- NOTE | 2022-05-29 19:01 | ECG_ITS ---
Test Reason : UPPER GRASTRIC PAIN Blood Pressure : / mmHG Vent. Rate : 101 BPM Atrial Rate : 000 BPM P-R Int : 000 ms QRS Dur : 076 ms QT Int : 330 ms P-R-T Axes : 000 006 049 degrees QTc Int : 427 ms Atrial fibrillation with rapid ventricular response with premature ventricular or aberrantly conducted complexes Low voltage QRS Abnormal ECG When compared with ECG of 04-APR-2022 10:30, No significant change was found Referred By: Abel Mendoza Electronically Signed By:Jaylan Rouse
--- NOTE | 2022-05-29 19:02 | ED.MALEGU ---
HPI - Male Genitourinary General Chief complaint: Urogenital-Male Stated complaint: from snf-uti Time Seen by Provider: 05/29/22 18:42 Source: patient, EMS and old records reviewed Mode of arrival: EMS History of Present Illness HPI Narrative: Patient presents via EMS from the alf secondary to dysuria. Apparently this has been going on for the last several days. He denies history of prior issues. He denies discharge. No flank pain. No fevers or chills. Positive epigastric pain as well. Positive headache. Positive chest pain. He has a history of atrial fibrillation and states he feels like his AFib has been going ?crazy? today His a history of left hemiparesis secondary to stroke and says he has not actually done anything all day. Therefore no known alleviating or exacerbating factors. Related Data Home Medications Medication Instructions Recorded Confirmed atorvastatin 40 mg tablet 40 mg PO BEDTIME 02/28/22 03/28/22 baclofen 10 mg tablet 10 mg PO BID 02/28/22 03/28/22 buspirone 15 mg tablet 1 tab PO TID 02/28/22 03/28/22 gabapentin 400 mg capsule 400 mg TID 02/28/22 03/28/22 levetiracetam 500 mg tablet 500 mg PO BID 02/28/22 03/28/22 lorazepam 0.5 mg tablet (Ativan) 1 tab PO DAILY 02/28/22 03/28/22 lorazepam 1 mg tablet (Ativan) 1 tab PO BEDTIME 02/28/22 03/28/22 melatonin 5 mg capsule 2 cap PO BEDTIME 02/28/22 03/28/22 metoprolol tartrate 50 mg tablet 50 mg PO BID 02/28/22 03/28/22 mirtazapine 15 mg tablet 15 mg PO BEDTIME 02/28/22 03/28/22 olanzapine 15 mg tablet (Zyprexa) 1 tab PO BEDTIME 02/28/22 03/28/22 pantoprazole 40 mg tablet,delayed 40 mg PO DAILY@0630 02/28/22 03/28/22 release cetirizine 10 mg tablet 10 mg PO DAILY 03/01/22 03/28/22 docusate sodium 100 mg capsule 100 mg PO BID 03/01/22 03/28/22 finasteride 5 mg tablet 5 mg PO DAILY 03/01/22 03/28/22 furosemide 20 mg tablet 20 mg PO DAILY PRN fluid overload 03/01/22 03/28/22 haloperidol 2 mg tablet 1 tab PO TID 03/01/22 03/28/22 lorazepam 0.5 mg tablet (Ativan) 1 tab PO DAILY PRN Anxiety 03/01/22 03/28/22 midodrine 5 mg tablet 1 tab PO TIDAC 03/01/22 03/28/22 olanzapine 5 mg tablet (Zyprexa) 5 mg PO BID@0900,1500 03/01/22 03/28/22 rivaroxaban 20 mg tablet (Xarelto) 20 mg PO BEDTIME 03/01/22 03/28/22 acetaminophen 325 mg tablet 650 mg PO Q4H PRN headache/fever 03/28/22 03/28/22 albuterol sulfate 2.5 mg/3 mL 2.5 mg inhalation TID PRN 03/28/22 03/28/22 (0.083 %) solution for nebulization Shortness Of Breath azelastine 0.05 % eye drops 1 drp ophthalmic (eye) BID PRN 03/28/22 03/28/22 Allergy Symptoms calcium carbonate 430 mg calcium 430 mg PO TID PRN Indigestion 03/28/22 03/28/22 (1,000 mg) chewable tablet furosemide 20 mg tablet 20 mg PO DAILY 03/28/22 03/28/22 lamotrigine 100 mg tablet 100 mg PO BEDTIME 03/28/22 03/28/22 (Lamictal) lamotrigine 25 mg tablet (Lamictal) 25 mg PO BEDTIME 03/28/22 03/28/22 menthol 4 % topical gel (Biofreeze 1 appl topical BID 03/28/22 03/28/22 (menthol)) menthol 4 % topical gel (Biofreeze 1 appl topical Q2H PRN Pain (Scale 03/28/22 03/28/22 (menthol)) Score 1-3) nitroglycerin 0.4 mg sublingual 0.4 mg sublingual Q5M PRN Chest 03/28/22 03/28/22 tablet Pain polyvinyl alcohol 1.4 % eye drops 1 drp ophthalmic (eye) DAILY 03/28/22 03/28/22 pseudoephedrine-guaifenesin ER 60 1 tab PO BID PRN Congestion 03/28/22 03/28/22 mg-600 mg tablet,extend release 12hr (Mucus D) sertraline 100 mg tablet 100 mg PO DAILY 03/28/22 03/28/22 sertraline 50 mg tablet (Zoloft) 50 mg PO DAILY 03/28/22 03/28/22 tramadol 100 mg tablet 100 mg PO Q6H PRN Back Pain 03/28/22 03/28/22 Previous Rx's Medication Instructions Recorded cefuroxime axetil 250 mg tablet 250 mg PO BID 7 days #14 tabs 03/21/22 Allergies Allergy/AdvReac Type Severity Reaction Status Date / Time No Known Allergies Allergy Verified 12/15/21 14:53 Review of Systems Constitutional: Comments: No fevers or chills Cardiovascular: Comments: Chest pain palpitations patient states consistent with prior episodes of atrial fibrillation Respiratory: Comments: No difficulty breathing. No cough Gastrointestinal: Comments: No nausea vomiting or diarrhea. Positive epigastric pain and lower abdominal pain Genitourinary: Comments: Positive urinary frequency and dysuria Musculoskeletal: Comments: No new complaints Integumentary/Breasts: Comments: No new rash Neurologic: Comments: Left-sided hemiparesis secondary to remote stroke [facility] Past Medical History Medical History Afib Anxiety disorder CHF (congestive heart failure) Cognitive disorder COPD (chronic obstructive pulmonary disease) CVA (cerebrovascular accident) Traumatic brain injury Social History Social History Alcohol intake: never Patient Tobacco Use Status: Former Tobacco user Advance Directives: Yes Advance Directives on File: Yes Advance Directives Date on File: 11/11/21 Physical Exam Vital Signs: Vital Signs: Last Vital Signs Temp 98.2 F 05/29/22 19:36 Pulse 95 05/29/22 19:36 Resp 16 05/29/22 19:36 BP 116/73 05/29/22 19:36 Pulse Ox 92 05/29/22 19:36 O2 Del Method 05/29/22 19:36 O2 Flow Rate 2 05/29/22 19:36 Oxygen Flow Rate 2 05/29/22 18:12 BMI result Body Mass Index 32.8 Const: Other: Awake and alert. No acute distress Resp: Other: Clear and equal bilaterally without wheezes rales or rhonchi Cardio: Other: Heart rate in the 80s on my exam. Sounds regular. No murmurs rubs or gallops GI: Other: Soft. Diffusely tender with point tenderness suprapubically as well as epigastrically. No guarding or rebound. Obese but no distention. No organomegaly. Bowel sounds normal. Skin: Other: Warm pink and dry without rash Neuro: Other: Left hemiparesis which appears chronic with muscle wasting and contractures Extrem: Other: Left-sided wasting and contractures as mentioned. No obvious acute traumas Course Course Course Narrative: 21:21. Workup in the emergency department is reassuring. His urinalysis is normal and he does not have urinary retention on the bladder scan. His blood work shows a normal CBC and normal chemistries. Recommend urology follow-up Medications Administered Discontinued Medications Generic Name Dose Route Start Last Admin Trade Name Freq PRN Reason Stop Dose Admin Omeprazole 40 mg 05/29/22 19:04 05/29/22 19:20 Omeprazole 40 Mg Capsule.Dr CANTU 05/29/22 19:05 40 mg ONCE ONE Administration Medical Decision Making Medical Decision Making [facility] Narrative: Patient with the above-mentioned abdominal complaints. Urinary tract infection, gastritis, pancreatitis are all possibilities. Abdomen is otherwise soft. Will await lab work. I do not think he needs CT scan this time unless labs show significant abnormalities. In the meantime will treat with GI cocktail and await further information. Also complaining of chest pain and palpitations. History of atrial fibrillation. Will do ischemic workup as well as dysrhythmia workup. Lab Data Result Diagrams: 05/29/22 19:49 05/29/22 19:49 Labs: Lab Results 05/29/22 05/29/22 05/29/22 Range/Units 19:49 19:49 19:49 WBC 10.3 (4.8-10.8) X10*3/uL RBC 5.04 (4.60-5.80) X10*6/uL Hgb 15.0 (14.0-18.0) g/dl Hct 45.3 (42.0-52.0) % MCV 89.9 (80.0-98.0) fL MCH 29.8 (27.0-33.0) pg MCHC 33.1 (31.0-36.0) g/dl RDW 14.0 (11.0-16.0) % Plt Count 221 (160-400) X10*3/uL MPV 9.5 (9.4-12.4) fL Immature Gran % (Auto) 0.9 H (0.0-0.4) % Neut % (Auto) 56.1 (45-73) % Lymph % (Auto) 35.2 (20-40) % Wright % (Auto) 6.3 (2-11) % Eos % (Auto) 1.0 (0-4) % Baso % (Auto) 0.5 (0-2) % Lymph # (Auto) 3.6 (1.2-4.9) X10*3/uL Wright # (Auto) 0.7 (0.1-1.2) X10*3/uL Eos # (Auto) 0.1 (0.0-0.4) X10*3/uL Baso # (Auto) 0.1 (0.0-0.2) X10*3/uL Abs Immat Gran (auto) 0.09 H (0.00-0.03) X10*3/uL Absolute Neuts (auto) 5.8 (2.0-8.3) x10*3/uL Absolute Nucleated RBC 0.000 (0.0-0.012) X10*3/uL Nucleated RBC % (auto) 0.0 (0.0-0.2) /100WBC Sodium 140 (135-145) mmol/L Potassium 4.2 (3.3-5.1) mmol/L Chloride 105 (96-108) mmol/L Carbon Dioxide 23 (22-29) mmol/L Anion Gap 16 (12-20) BUN 15 (9-16) mg/dL Creatinine 0.75 (0.5-1.4) mg/dL Estim Creat Clear Calc 142.4 Estimated GFR > 60 Random Glucose 110 (60-115) mg/dL Calcium 9.9 D (8.4-10.2) mg/dL Total Bilirubin 0.7 (0.0-1.0) mg/dL AST 20 (5-37) U/L ALT 30 (0-40) U/L Alkaline Phosphatase 130 H (39-117) U/L Troponin I High Sens < 3.5 (<3.5-35.0) ng/L Total Protein 7.2 (6.5-8.0) g/dL Albumin 4.6 (3.5-5.0) g/dL Lipase 15 (8-78) U/L Urine Color Urine Appearance Urine pH (5.0-9.0) Ur Specific [place] (1.005-1.025) Urine Protein (Neg-Trace) mg/dL Urine Glucose (UA) (Negative) mg/dL Urine Ketones (Negative) mg/dL Urine Blood (Negative) Urine Nitrite (Negative) Ur Leukocyte Esterase (Negative) 05/29/22 Range/Units 19:50 WBC (4.8-10.8) X10*3/uL RBC (4.60-5.80) X10*6/uL Hgb (14.0-18.0) g/dl Hct (42.0-52.0) % MCV (80.0-98.0) fL MCH (27.0-33.0) pg MCHC (31.0-36.0) g/dl RDW (11.0-16.0) % Plt Count (160-400) X10*3/uL MPV (9.4-12.4) fL Immature Gran % (Auto) (0.0-0.4) % Neut % (Auto) (45-73) % Lymph % (Auto) (20-40) % Wright % (Auto) (2-11) % Eos % (Auto) (0-4) % Baso % (Auto) (0-2) % Lymph # (Auto) (1.2-4.9) X10*3/uL Wright # (Auto) (0.1-1.2) X10*3/uL Eos # (Auto) (0.0-0.4) X10*3/uL Baso # (Auto) (0.0-0.2) X10*3/uL Abs Immat Gran (auto) (0.00-0.03) X10*3/uL Absolute Neuts (auto) (2.0-8.3) x10*3/uL Absolute Nucleated RBC (0.0-0.012) X10*3/uL Nucleated RBC % (auto) (0.0-0.2) /100WBC Sodium (135-145) mmol/L Potassium (3.3-5.1) mmol/L Chloride (96-108) mmol/L Carbon Dioxide (22-29) mmol/L Anion Gap (12-20) BUN (9-16) mg/dL Creatinine (0.5-1.4) mg/dL Estim Creat Clear Calc Estimated GFR Random Glucose (60-115) mg/dL Calcium (8.4-10.2) mg/dL Total Bilirubin (0.0-1.0) mg/dL AST (5-37) U/L ALT (0-40) U/L Alkaline Phosphatase (39-117) U/L Troponin I High Sens (<3.5-35.0) ng/L Total Protein (6.5-8.0) g/dL Albumin (3.5-5.0) g/dL Lipase (8-78) U/L Urine Color Yellow Urine Appearance Clear Urine pH 8.0 (5.0-9.0) Ur Specific [place] 1.015 (1.005-1.025) Urine Protein Negative (Neg-Trace) mg/dL Urine Glucose (UA) Negative (Negative) mg/dL Urine Ketones Negative (Negative) mg/dL Urine Blood Negative (Negative) Urine Nitrite Negative (Negative) Ur Leukocyte Esterase Negative (Negative) Discharge Plan Discharge Clinical Impression: Dysuria Patient Disposition: [facility] Additional Instructions: Your workup in the emergency department was reassuring. Urinalysis is normal without evidence of infection. The bladder scan shows no evidence of urinary retention. Blood work is normal, including CBC, cardiac enzymes, electrolytes, liver functions, renal function, and pancreatic enzyme. EKG demonstrates atrial fibrillation but the rate is normal. Continue all of your current medications. Follow up with Urology. See referral Continue all of your current medications. Drink plenty of water Prescriptions: No Action lorazepam [Ativan] 0.5 mg tablet 1 tab PO DAILY olanzapine [Zyprexa] 15 mg tablet 1 tab PO BEDTIME lorazepam [Ativan] 1 mg tablet 1 tab PO BEDTIME buspirone 15 mg tablet 1 tab PO TID melatonin 5 mg capsule 2 cap PO BEDTIME mirtazapine 15 mg Tablet 15 mg PO BEDTIME atorvastatin 40 mg Tablet 40 mg PO BEDTIME gabapentin 400 mg Capsule 400 mg TID baclofen 10 mg Tablet 10 mg PO BID levetiracetam 500 mg Tablet 500 mg PO BID pantoprazole 40 mg Tablet,Delayed Release (Dr/Ec) 40 mg PO DAILY@0630 metoprolol tartrate 50 mg Tablet 50 mg PO BID cetirizine 10 mg Tablet 10 mg PO DAILY olanzapine [Zyprexa] 5 mg tablet 5 mg PO BID@0900,1500 docusate sodium 100 mg Capsule 100 mg PO BID furosemide 20 mg Tablet 20 mg PO DAILY PRN (Reason: fluid overload) haloperidol 2 mg tablet 1 tab PO TID finasteride 5 mg Tablet 5 mg PO DAILY lorazepam [Ativan] 0.5 mg tablet 1 tab PO DAILY PRN (Reason: Anxiety) Xarelto 20 mg Tablet 20 mg PO BEDTIME Rx Instructions: must administer with evening meal midodrine 5 mg tablet 1 tab PO TIDAC azelastine 0.05 % Drops 1 drp OPHTHALMIC (EYE) BID PRN (Reason: Allergy Symptoms) acetaminophen 325 mg Tablet 650 mg PO Q4H PRN (Reason: headache/fever) albuterol sulfate 2.5 mg /3 mL (0.083 %) Solution For Nebulization 2.5 mg INHALATION TID PRN (Reason: Shortness Of Breath) polyvinyl alcohol 1.4 % Drops 1 drp OPHTHALMIC (EYE) DAILY sertraline 100 mg Tablet 100 mg PO DAILY Rx Instructions: tdd = 150 mg pseudoephedrine-guaifenesin [Mucus D] 60-600 mg Tablet Extended Release 12 Hr 1 tab PO BID PRN (Reason: Congestion) lamotrigine [Lamictal] 25 mg Tablet 25 mg PO BEDTIME Rx Instructions: tdd = 125 mg nitroglycerin 0.4 mg Tablet, Sublingual 0.4 mg SUBLINGUAL Q5M PRN (Reason: Chest Pain) Rx Instructions: do not exceed 3 doses per episode sertraline [Zoloft] 50 mg tablet 50 mg PO DAILY Rx Instructions: tdd = 150 mg Biofreeze (menthol) 4 % Gel 1 appl TOPICAL BID Rx Instructions: apply a thin layer mid to lower back Biofreeze (menthol) 4 % Gel 1 appl TOPICAL Q2H PRN (Reason: Pain (Scale Score 1-3)) calcium carbonate 430 mg calcium (1,000 mg) Tablet,Chewable 430 mg PO TID PRN (Reason: Indigestion) tramadol 100 mg Tablet 100 mg PO Q6H PRN (Reason: Back Pain) furosemide 20 mg Tablet 20 mg PO DAILY lamotrigine [Lamictal] 100 mg Tablet 100 mg PO BEDTIME cefuroxime axetil 250 mg tablet 250 mg PO BID 7 Days Qty: 14 0RF Rx Instructions: 03/23/22 to 03/30/22 Referrals: Kendrick Morton MD [Physician] -
--- NOTE | 2022-05-29 19:15 | MHC.EDTECH ---
pt was change into hospital attire and hooked up to computer programmer analyst ,vitals sign taken .
[2022-05-29 19:36] VITALS: BP 116/73; PULSE 95; RESP 16; TEMP 36.8; O2SAT 92
[2022-05-29 19:54] LABS: MANUAL DIFF FLAG NO
[2022-05-29 19:56] LABS: Basophils Absolute Auto 0.1 X10*3/uL (0.0-0.2); Basophils Percent Auto 0.5 % (0-2); Eosinophils Absolute Auto 0.1 X10*3/uL (0.0-0.4); Hematocrit 45.3 % (42.0-52.0); Imm Gran Abs Auto 0.09 X10*3/uL (0.00-0.03); Imm Gran Pct Auto 0.9 % (0.0-0.4); Lymphocytes Absolute Auto 3.6 X10*3/uL (1.2-4.9); Lymphocytes Percent Auto 35.2 % (20-40); Mean Corpuscular HGB Conc 33.1 g/dl (31.0-36.0); Mean Corpuscular Hemoglobin 29.8 pg (27.0-33.0); Mean Corpuscular Volume 89.9 fL (80.0-98.0); Mean Platelet Volume 9.5 fL (9.4-12.4); Monocytes Absolute Auto 0.7 X10*3/uL (0.1-1.2); Monocytes Percent Auto 6.3 % (2-11); Neutrophils Absolute Auto 5.8 x10*3/uL (2.0-8.3); Neutrophils Percent Auto 56.1 % (45-73); Platelet Count 221 X10*3/uL (160-400); Red Blood Count 5.04 X10*6/uL (4.60-5.80); White Blood Count 10.3 X10*3/uL (4.8-10.8)
[2022-05-29 19:57] LABS: Appearance Urine Clear; Color Urine Yellow; Glucose Urine UA Negative (Negative); Leukocyte Esterase Urine Negative (Negative); Nitrite Urine Negative (Negative); Specific Gravity - Urine 1.015 (1.005-1.025); Urine Blood Negative (Negative); Urine Ketones Negative (Negative); Urine Protein Negative (Neg-Trace)
[2022-05-29 20:15] LABS: Alanine Aminotransferase 30 U/L (0-40); Albumin Level 4.6 g/dL (3.5-5.0); Alkaline Phosphatase 130 U/L (39-117); Anion Gap 16 (12-20); Aspartate Amino Transferase 20 U/L (5-37); Bilirubin Total 0.7 mg/dL (0.0-1.0); Blood Urea Nitrogen 15 mg/dL (9-16); Calcium 9.9 mg/dL (8.4-10.2); Carbon Dioxide 23 mmol/L (22-29); Chloride 105 mmol/L (96-108); Creatinine Clr Calc Pharmacy 142.4; Estimated Glomerular Filt Rate > 60; Glucose Random 110 mg/dL (60-115); Lipase 15 U/L (8-78); Potassium 4.2 mmol/L (3.3-5.1); Sodium 140 mmol/L (135-145); Total Protein 7.2 g/dL (6.5-8.0)
--- NOTE | 2022-05-29 20:29 | MHC.EDTECH ---
pt was incontinent of urine ,myself and pct marine clean and change pt .
[2022-05-29 20:46] LABS: Troponin-I High Sensitivity < 3.5 ng/L (<3.5-35.0)
--- NOTE | 2022-05-29 21:45 | PC.NURSE ---
Meds given as documented.
--- NOTE | 2022-05-29 21:48 | MHC.EDTECH ---
Spoke with Sue de leon [place] at [phone] for a bls transfer back to [facility]. ETA within 30mins. Rn aware
[2022-05-29 22:00] VITALS: BP 136/69; PULSE 86; RESP 16; TEMP 36.1; O2SAT 94
--- NOTE | 2022-05-29 22:50 | PC.NURSE ---
PT awake, yelling, upset when needs aren't meet, verbal reassurance given.
[2022-05-30] VITALS: BP 116/84; PULSE 115; RESP 20; O2SAT 94
--- NOTE | 2022-05-30 00:07 | PC.NURSE ---
PT refused to take metoprolol, states I'm done taking that medicine, I don't care about my heart .
== END 2022-05-30 00:29 | disposition skilled nursing facility (03) ==
PROVIDERS: Emergency Provider Emergency Medicine
DX: R30.0 Dysuria (principal); R07.89 Other chest pain; R51.9 Headache, unspecified; R10.13 Epigastric pain; I25.10 Atherosclerotic heart disease of native coronary artery without angina pectoris; Z79.899 Other long term (current) drug therapy; Z87.891 Personal history of nicotine dependence
CPT/HCPCS: 36415; 51798; 71045; 80053; 81003; 83690; 84484; 85025; 93005; 99284; 99285

== ENCOUNTER 2022-05-30 08:28 | Emergency (ER) | payer MEDICAID, SELFPAY ==
--- NOTE | 2022-05-30 08:31 | ECG_ITS ---
Test Reason : CHEST PAIN Blood Pressure : / mmHG Vent. Rate : 151 BPM Atrial Rate : 000 BPM P-R Int : 000 ms QRS Dur : 080 ms QT Int : 306 ms P-R-T Axes : 000 011 -17 degrees QTc Int : 485 ms Atrial fibrillation with rapid ventricular response Abnormal ECG When compared with ECG of 29-MAY-2022 19:25, Vent. rate has increased BY 50 BPM Referred By: Sigrid Morris Electronically Signed By:Jaylan Rouse
[2022-05-30 08:37] VITALS: BP 110/84; BP 138/73; PULSE 146; PULSE 95; RESP 18; TEMP 36.6; O2SAT 94; O2SAT 95; BMI 33.4
[2022-05-30 09:47] LABS: MANUAL DIFF FLAG NO
--- NOTE | 2022-05-30 09:58 | ED.CHESTPAIN ---
HPI - Chest Pain General Chief Complaint: Chest Pain Stated Complaint: CP,RESOLVED Time Seen by Provider: 05/30/22 08:31 Source: patient Mode of arrival: EMS History of Present Illness HPI narrative: 57-year-old male brought in by EMS with complaints of chest pain that resolved as soon as he got on the ambulance. EMS reports that they did give him aspirin, patient denies any diaphoresis and states that ?I do not want to go back to that [place] [facility] facility?. Patient denies any current chest pain. Related Data Home Medications Medication Instructions Recorded Confirmed atorvastatin 40 mg tablet 40 mg PO BEDTIME 02/28/22 03/28/22 baclofen 10 mg tablet 10 mg PO BID 02/28/22 03/28/22 buspirone 15 mg tablet 1 tab PO TID 02/28/22 03/28/22 gabapentin 400 mg capsule 400 mg TID 02/28/22 03/28/22 levetiracetam 500 mg tablet 500 mg PO BID 02/28/22 03/28/22 lorazepam 0.5 mg tablet (Ativan) 1 tab PO DAILY 02/28/22 03/28/22 lorazepam 1 mg tablet (Ativan) 1 tab PO BEDTIME 02/28/22 03/28/22 melatonin 5 mg capsule 2 cap PO BEDTIME 02/28/22 03/28/22 metoprolol tartrate 50 mg tablet 50 mg PO BID 02/28/22 03/28/22 mirtazapine 15 mg tablet 15 mg PO BEDTIME 02/28/22 03/28/22 olanzapine 15 mg tablet (Zyprexa) 1 tab PO BEDTIME 02/28/22 03/28/22 pantoprazole 40 mg tablet,delayed 40 mg PO DAILY@0630 02/28/22 03/28/22 release cetirizine 10 mg tablet 10 mg PO DAILY 03/01/22 03/28/22 docusate sodium 100 mg capsule 100 mg PO BID 03/01/22 03/28/22 finasteride 5 mg tablet 5 mg PO DAILY 03/01/22 03/28/22 furosemide 20 mg tablet 20 mg PO DAILY PRN fluid overload 03/01/22 03/28/22 haloperidol 2 mg tablet 1 tab PO TID 03/01/22 03/28/22 lorazepam 0.5 mg tablet (Ativan) 1 tab PO DAILY PRN Anxiety 03/01/22 03/28/22 midodrine 5 mg tablet 1 tab PO TIDAC 03/01/22 03/28/22 olanzapine 5 mg tablet (Zyprexa) 5 mg PO BID@0900,1500 03/01/22 03/28/22 rivaroxaban 20 mg tablet (Xarelto) 20 mg PO BEDTIME 03/01/22 03/28/22 acetaminophen 325 mg tablet 650 mg PO Q4H PRN headache/fever 03/28/22 03/28/22 albuterol sulfate 2.5 mg/3 mL 2.5 mg inhalation TID PRN 03/28/22 03/28/22 (0.083 %) solution for nebulization Shortness Of Breath azelastine 0.05 % eye drops 1 drp ophthalmic (eye) BID PRN 03/28/22 03/28/22 Allergy Symptoms calcium carbonate 430 mg calcium 430 mg PO TID PRN Indigestion 03/28/22 03/28/22 (1,000 mg) chewable tablet furosemide 20 mg tablet 20 mg PO DAILY 03/28/22 03/28/22 lamotrigine 100 mg tablet 100 mg PO BEDTIME 03/28/22 03/28/22 (Lamictal) lamotrigine 25 mg tablet (Lamictal) 25 mg PO BEDTIME 03/28/22 03/28/22 menthol 4 % topical gel (Biofreeze 1 appl topical BID 03/28/22 03/28/22 (menthol)) menthol 4 % topical gel (Biofreeze 1 appl topical Q2H PRN Pain (Scale 03/28/22 03/28/22 (menthol)) Score 1-3) nitroglycerin 0.4 mg sublingual 0.4 mg sublingual Q5M PRN Chest 03/28/22 03/28/22 tablet Pain polyvinyl alcohol 1.4 % eye drops 1 drp ophthalmic (eye) DAILY 03/28/22 03/28/22 pseudoephedrine-guaifenesin ER 60 1 tab PO BID PRN Congestion 03/28/22 03/28/22 mg-600 mg tablet,extend release 12hr (Mucus D) sertraline 100 mg tablet 100 mg PO DAILY 03/28/22 03/28/22 sertraline 50 mg tablet (Zoloft) 50 mg PO DAILY 03/28/22 03/28/22 tramadol 100 mg tablet 100 mg PO Q6H PRN Back Pain 03/28/22 03/28/22 Previous Rx's Medication Instructions Recorded cefuroxime axetil 250 mg tablet 250 mg PO BID 7 days #14 tabs 03/21/22 Allergies Allergy/AdvReac Type Severity Reaction Status Date / Time No Known Allergies Allergy Verified 12/15/21 14:53 Review of Systems Review of Systems: Pertinent positives and negatives as stated in HPI 10 point review of systems is otherwise negative. [facility] Past Medical History Source: nursing notes reviewed Medical History Afib Anxiety disorder CHF (congestive heart failure) Cognitive disorder COPD (chronic obstructive pulmonary disease) CVA (cerebrovascular accident) Traumatic brain injury Social History Social History Alcohol intake: former Patient Tobacco Use Status: Former Tobacco user Advance Directives: Yes Advance Directives on File: Yes Advance Directives Date on File: 11/11/21 Physical Exam Vital Signs: Vital Signs: Last Vital Signs Temp 98.9 F 05/30/22 10:50 Pulse 90 05/30/22 10:50 Resp 24 H 05/30/22 10:50 BP 103/64 05/30/22 10:50 Pulse Ox 92 05/30/22 10:50 O2 Del Method 05/30/22 10:50 O2 Flow Rate 3 05/30/22 10:50 Oxygen Flow Rate 2 05/30/22 08:37 BMI result Body Mass Index 33.4 VITAL SIGNS: Reviewed. GENERAL: Well developed, well nourished, in no acute distress. HEAD: Normocephalic/atraumatic EYES: PERRLA, EOMI EARS: Ext canals without abnormality NOSE: Nares patent bilateral OROPHARYNX: no oral lesions noted, posterior pharynx clear LUNGS: Normal breath sounds. No adventitious sounds or accessory muscle use. SpO2<94> CARDIOVASCULAR: Regular rate and rhythm without noted murmurs, no JVD or lower extremity edema. ABDOMEN: Soft, non-tender, non-distended with bowel sounds. : Mathias catheter in place MUSCULOSKELETAL: No tenderness, deformities, or effusions noted on gross inspection. EXTREMITIES: No cyanosis, clubbing or edema. SKIN: Inspection of the skin reveals no rashes NEUROLOGIC: Alert and oriented x 3. Course Course Course Narrative: I have reviewed all laboratory investigations and there is no leukocytosis or left shift, troponin is undetectable which is consistent with troponin that was obtained at approximately 20:00 last night. Chemistries are chronically stable. Urinalysis looked negative last night and viral testing as well as chest x-ray is negative. Patient also received his scheduled 50 mg Lopressor p.o.. Patient is otherwise hemodynamically stable for discharge back to the group facility. Reevaluation(s) Reevaluation #1: Patient received 5 mg of Lopressor for atrial fibrillation with RVR. Time: 08:36 Reevaluation #2: On re-evaluation patient's heart rate still remains in the 110s to 120s, he is hemodynamically stable an additional 2.5 mg of Lopressor be IV were administered. Time: 09:57 Reevaluation #3: On re-evaluation patient remains mildly tachycardic but is hemodynamically stable and has received p.o. medication for heart rate control. Time: 11:18 Medications Administered Discontinued Medications Generic Name Dose Route Start Last Admin Trade Name Freq PRN Reason Stop Dose Admin Metoprolol Tartrate 5 mg 05/30/22 08:36 05/30/22 08:45 Metoprolol Tartrate 5 Mg/5 Ml Vial IVPUSH 05/30/22 08:37 5 mg ONCE ONE Administration Metoprolol Tartrate 50 mg 05/30/22 08:36 05/30/22 08:49 Metoprolol Tartrate 50 Mg Tablet PO 05/30/22 08:37 50 mg ONCE ONE Administration Protocol Metoprolol Tartrate 2.5 mg 05/30/22 09:57 05/30/22 10:09 Metoprolol Tartrate 5 Mg/5 Ml Vial IVPUSH 05/30/22 09:58 2.5 mg ONCE ONE Administration Medical Decision Making Medical Decision Making MDM Narrative: 57-year-old male who is brought in by EMS with complaints of chest pain that then resolved as soon as he was placed in EMS vehicle, on arrival patient is noted to be in atrial fibrillation with RVR with stable blood pressure and denying any current chest pain. Patient was evaluated on 05/29 for possible urinary tract infection. Differential Diagnosis Differential Diagnoses: The differential diagnosis associated with the presentation includes Noncardiac chest pain, viral etiology. Lab Data MDM Lab Attestation statement: I reviewed the patient's lab results. Please see the course for full discussion. Result Diagrams: 05/30/22 09:42 05/30/22 09:42 Labs: Lab Results 05/30/22 05/30/22 05/30/22 Range/Units 09:42 09:42 09:42 WBC 10.5 (4.8-10.8) X10*3/uL RBC 5.33 (4.60-5.80) X10*6/uL Hgb 15.6 (14.0-18.0) g/dl Hct 47.7 (42.0-52.0) % MCV 89.5 (80.0-98.0) fL MCH 29.3 (27.0-33.0) pg MCHC 32.7 (31.0-36.0) g/dl RDW 14.1 (11.0-16.0) % Plt Count 266 (160-400) X10*3/uL MPV 9.8 (9.4-12.4) fL Immature Gran % (Auto) 0.7 H (0.0-0.4) % Neut % (Auto) 67.4 (45-73) % Lymph % (Auto) 24.5 (20-40) % [place] % (Auto) 6.4 (2-11) % Eos % (Auto) 0.5 (0-4) % Baso % (Auto) 0.5 (0-2) % Lymph # (Auto) 2.6 (1.2-4.9) X10*3/uL [place] # (Auto) 0.7 (0.1-1.2) X10*3/uL Eos # (Auto) 0.1 (0.0-0.4) X10*3/uL Baso # (Auto) 0.1 (0.0-0.2) X10*3/uL Abs Immat Gran (auto) 0.07 H (0.00-0.03) X10*3/uL Absolute Neuts (auto) 7.1 (2.0-8.3) x10*3/uL Absolute Nucleated RBC 0.000 (0.0-0.012) X10*3/uL Nucleated RBC % (auto) 0.0 (0.0-0.2) /100WBC PT (10.0-13.1) SEC INR (0.9-1.1) APTT (26.0-36.4) SEC Sodium 138 (135-145) mmol/L Potassium 4.6 (3.3-5.1) mmol/L Chloride 104 (96-108) mmol/L Carbon Dioxide 23 (22-29) mmol/L Anion Gap 16 (12-20) BUN 13 (9-16) mg/dL Creatinine 0.74 (0.5-1.4) mg/dL Estim Creat Clear Calc 137.2 Estimated GFR > 60 Random Glucose 119 H (60-115) mg/dL Calcium 9.9 (8.4-10.2) mg/dL Total Bilirubin 0.8 (0.0-1.0) mg/dL AST 18 (5-37) U/L ALT 27 (0-40) U/L Alkaline Phosphatase 130 H (39-117) U/L Troponin I High Sens < 3.5 (<3.5-35.0) ng/L B-Natriuretic Peptide (<100) pg/mL Total Protein 7.2 (6.5-8.0) g/dL Albumin 4.6 (3.5-5.0) g/dL COVID-19 (IL[facility]NA) (Negative) COVID-19 Clin Com Influenza Type A ([facility]ON[facility]) (Negative) Influenza Type B ([facility]) (Negative) Influenza A & B Note 05/30/22 05/30/22 05/30/22 Range/Units 09:42 09:42 09:43 WBC (4.8-10.8) X10*3/uL RBC (4.60-5.80) X10*6/uL Hgb (14.0-18.0) g/dl Hct (42.0-52.0) % MCV (80.0-98.0) fL MCH (27.0-33.0) pg MCHC (31.0-36.0) g/dl RDW (11.0-16.0) % Plt Count (160-400) X10*3/uL MPV (9.4-12.4) fL Immature Gran % (Auto) (0.0-0.4) % Neut % (Auto) (45-73) % Lymph % (Auto) (20-40) % [place] % (Auto) (2-11) % Eos % (Auto) (0-4) % Baso % (Auto) (0-2) % Lymph # (Auto) (1.2-4.9) X10*3/uL [place] # (Auto) (0.1-1.2) X10*3/uL Eos # (Auto) (0.0-0.4) X10*3/uL Baso # (Auto) (0.0-0.2) X10*3/uL Abs Immat Gran (auto) (0.00-0.03) X10*3/uL Absolute Neuts (auto) (2.0-8.3) x10*3/uL Absolute Nucleated RBC (0.0-0.012) X10*3/uL Nucleated RBC % (auto) (0.0-0.2) /100WBC PT (10.0-13.1) SEC INR (0.9-1.1) APTT (26.0-36.4) SEC Sodium (135-145) mmol/L Potassium (3.3-5.1) mmol/L Chloride (96-108) mmol/L Carbon Dioxide (22-29) mmol/L Anion Gap (12-20) BUN (9-16) mg/dL Creatinine (0.5-1.4) mg/dL Estim Creat Clear Calc Estimated GFR Random Glucose (60-115) mg/dL Calcium (8.4-10.2) mg/dL Total Bilirubin (0.0-1.0) mg/dL AST (5-37) U/L ALT (0-40) U/L Alkaline Phosphatase (39-117) U/L Troponin I High Sens (<3.5-35.0) ng/L B-Natriuretic Peptide 41 (<100) pg/mL Total Protein (6.5-8.0) g/dL Albumin (3.5-5.0) g/dL COVID-19 (ILIANA) Negative (Negative) COVID-19 Clin Com See Note Influenza Type A ([facility]) Negative (Negative) Influenza Type B ([facility]) Negative (Negative) Influenza A & B Note See Note 05/30/22 Range/Units 10:46 WBC (4.8-10.8) X10*3/uL RBC (4.60-5.80) X10*6/uL Hgb (14.0-18.0) g/dl Hct (42.0-52.0) % MCV (80.0-98.0) fL MCH (27.0-33.0) pg MCHC (31.0-36.0) g/dl RDW (11.0-16.0) % Plt Count (160-400) X10*3/uL MPV (9.4-12.4) fL Immature Gran % (Auto) (0.0-0.4) % Neut % (Auto) (45-73) % Lymph % (Auto) (20-40) % [place] % (Auto) (2-11) % Eos % (Auto) (0-4) % Baso % (Auto) (0-2) % Lymph # (Auto) (1.2-4.9) X10*3/uL [place] # (Auto) (0.1-1.2) X10*3/uL Eos # (Auto) (0.0-0.4) X10*3/uL Baso # (Auto) (0.0-0.2) X10*3/uL Abs Immat Gran (auto) (0.00-0.03) X10*3/uL Absolute Neuts (auto) (2.0-8.3) x10*3/uL Absolute Nucleated RBC (0.0-0.012) X10*3/uL Nucleated RBC % (auto) (0.0-0.2) /100WBC PT 12.9 (10.0-13.1) SEC INR 1.1 (0.9-1.1) APTT 26.8 D (26.0-36.4) SEC Sodium (135-145) mmol/L Potassium (3.3-5.1) mmol/L Chloride (96-108) mmol/L Carbon Dioxide (22-29) mmol/L Anion Gap (12-20) BUN (9-16) mg/dL Creatinine (0.5-1.4) mg/dL Estim Creat Clear Calc Estimated GFR Random Glucose (60-115) mg/dL Calcium (8.4-10.2) mg/dL Total Bilirubin (0.0-1.0) mg/dL AST (5-37) U/L ALT (0-40) U/L Alkaline Phosphatase (39-117) U/L Troponin I High Sens (<3.5-35.0) ng/L B-Natriuretic Peptide (<100) pg/mL Total Protein (6.5-8.0) g/dL Albumin (3.5-5.0) g/dL COVID-19 (ILIANA) (Negative) COVID-19 Clin Com Influenza Type A ([facility]) (Negative) Influenza Type B ([facility]) (Negative) Influenza A & B Note Independent Interpretation I performed an independent interpretation of an: EKG Interpretation: Atrial fibrillation with RVR, HR-111, no STEMI, QRS/QTC is within normal limits. Radiology Impression Radiologist Impression: My interpretation of the radiologist impression of imaging is in agreement. External Record Review External record reviewed: Inpatient record and Outpatient record Social Determinants Patient?s care significantly limited by Social Determinants of Health including: Other Social Determinant of Health longterm, TBI Discharge Plan Discharge Clinical Impression: Non-cardiac chest pain Patient Disposition: Xfer Other Instructions: Chest Pain (ED) Additional Instructions: 1. Resume all home medications as prescribed. 2. Follow-up with primary care provider Wednesday. Return to the ER for any worsening symptoms Prescriptions: No Action lorazepam [Ativan] 0.5 mg tablet 1 tab PO DAILY olanzapine [Zyprexa] 15 mg tablet 1 tab PO BEDTIME lorazepam [Ativan] 1 mg tablet 1 tab PO BEDTIME buspirone 15 mg tablet 1 tab PO TID melatonin 5 mg capsule 2 cap PO BEDTIME mirtazapine 15 mg Tablet 15 mg PO BEDTIME atorvastatin 40 mg Tablet 40 mg PO BEDTIME gabapentin 400 mg Capsule 400 mg TID baclofen 10 mg Tablet 10 mg PO BID levetiracetam 500 mg Tablet 500 mg PO BID pantoprazole 40 mg Tablet,Delayed Release (Dr/Ec) 40 mg PO DAILY@0630 metoprolol tartrate 50 mg Tablet 50 mg PO BID cetirizine 10 mg Tablet 10 mg PO DAILY olanzapine [Zyprexa] 5 mg tablet 5 mg PO BID@0900,1500 docusate sodium 100 mg Capsule 100 mg PO BID furosemide 20 mg Tablet 20 mg PO DAILY PRN (Reason: fluid overload) haloperidol 2 mg tablet 1 tab PO TID finasteride 5 mg Tablet 5 mg PO DAILY lorazepam [Ativan] 0.5 mg tablet 1 tab PO DAILY PRN (Reason: Anxiety) Xarelto 20 mg Tablet 20 mg PO BEDTIME Rx Instructions: must administer with evening meal midodrine 5 mg tablet 1 tab PO TIDAC azelastine 0.05 % Drops 1 drp OPHTHALMIC (EYE) BID PRN (Reason: Allergy Symptoms) acetaminophen 325 mg Tablet 650 mg PO Q4H PRN (Reason: headache/fever) albuterol sulfate 2.5 mg /3 mL (0.083 %) Solution For Nebulization 2.5 mg INHALATION TID PRN (Reason: Shortness Of Breath) polyvinyl alcohol 1.4 % Drops 1 drp OPHTHALMIC (EYE) DAILY sertraline 100 mg Tablet 100 mg PO DAILY Rx Instructions: tdd = 150 mg pseudoephedrine-guaifenesin [Mucus D] 60-600 mg Tablet Extended Release 12 Hr 1 tab PO BID PRN (Reason: Congestion) lamotrigine [Lamictal] 25 mg Tablet 25 mg PO BEDTIME Rx Instructions: tdd = 125 mg nitroglycerin 0.4 mg Tablet, Sublingual 0.4 mg SUBLINGUAL Q5M PRN (Reason: Chest Pain) Rx Instructions: do not exceed 3 doses per episode sertraline [Zoloft] 50 mg tablet 50 mg PO DAILY Rx Instructions: tdd = 150 mg Biofreeze (menthol) 4 % Gel 1 appl TOPICAL BID Rx Instructions: apply a thin layer mid to lower back Biofreeze (menthol) 4 % Gel 1 appl TOPICAL Q2H PRN (Reason: Pain (Scale Score 1-3)) calcium carbonate 430 mg calcium (1,000 mg) Tablet,Chewable 430 mg PO TID PRN (Reason: Indigestion) tramadol 100 mg Tablet 100 mg PO Q6H PRN (Reason: Back Pain) furosemide 20 mg Tablet 20 mg PO DAILY lamotrigine [Lamictal] 100 mg Tablet 100 mg PO BEDTIME cefuroxime axetil 250 mg tablet 250 mg PO BID 7 Days Qty: 14 0RF Rx Instructions: 03/23/22 to 03/30/22
[2022-05-30 10:00] LABS: Basophils Absolute Auto 0.1 X10*3/uL (0.0-0.2); Basophils Percent Auto 0.5 % (0-2); Eosinophils Absolute Auto 0.1 X10*3/uL (0.0-0.4); Eosinophils Percent Auto 0.5 % (0-4); Hematocrit 47.7 % (42.0-52.0); Hemoglobin 15.6 g/dl (14.0-18.0); Imm Gran Abs Auto 0.07 X10*3/uL (0.00-0.03); Imm Gran Pct Auto 0.7 % (0.0-0.4); Lymphocytes Absolute Auto 2.6 X10*3/uL (1.2-4.9); Lymphocytes Percent Auto 24.5 % (20-40); Mean Corpuscular HGB Conc 32.7 g/dl (31.0-36.0); Mean Corpuscular Hemoglobin 29.3 pg (27.0-33.0); Mean Corpuscular Volume 89.5 fL (80.0-98.0); Mean Platelet Volume 9.8 fL (9.4-12.4); Monocytes Absolute Auto 0.7 X10*3/uL (0.1-1.2); Monocytes Percent Auto 6.4 % (2-11); Neutrophils Absolute Auto 7.1 x10*3/uL (2.0-8.3); Neutrophils Percent Auto 67.4 % (45-73); Platelet Count 266 X10*3/uL (160-400); Red Blood Count 5.33 X10*6/uL (4.60-5.80); Red Cell Distribution Width 14.1 % (11.0-16.0); White Blood Count 10.5 X10*3/uL (4.8-10.8)
[2022-05-30 10:03] LABS: COVID-19 Test Negative (Negative); IDNOW Serial# 16C4AD1C
[2022-05-30 10:03] LABS: IDNOW Serial# BCCEAD1C; Influenza A Negative (Negative); Influenza B2 Negative (Negative)
[2022-05-30 10:07] VITALS: BP 100/58; PULSE 116; RESP 22; O2SAT 94
[2022-05-30 10:26] LABS: Alanine Aminotransferase 27 U/L (0-40); Albumin Level 4.6 g/dL (3.5-5.0); Alkaline Phosphatase 130 U/L (39-117); Anion Gap 16 (12-20); Aspartate Amino Transferase 18 U/L (5-37); Bilirubin Total 0.8 mg/dL (0.0-1.0); Blood Urea Nitrogen 13 mg/dL (9-16); Calcium 9.9 mg/dL (8.4-10.2); Carbon Dioxide 23 mmol/L (22-29); Chloride 104 mmol/L (96-108); Creatinine Clr Calc Pharmacy 137.2; Estimated Glomerular Filt Rate > 60; Glucose Random 119 mg/dL (60-115); Potassium 4.6 mmol/L (3.3-5.1); Sodium 138 mmol/L (135-145); Total Protein 7.2 g/dL (6.5-8.0)
[2022-05-30 10:50] VITALS: BP 103/64; PULSE 90; RESP 24; TEMP 37.2; O2SAT 92
[2022-05-30 10:57] LABS: INTERNATIONAL NORM RATIO 1.1 (0.9-1.1); Prothrombin Time 12.9 SEC (10.0-13.1)
[2022-05-30 11:00] LABS: Partial Thromboplastin Time 26.8 SEC (26.0-36.4)
[2022-05-30 11:13] LABS: B Type Natriuretic Peptide 41 pg/mL (<100)
[2022-05-30 11:14] LABS: Troponin-I High Sensitivity < 3.5 ng/L (<3.5-35.0)
--- NOTE | 2022-05-30 12:41 | PC.NURSE ---
pt yelling out as the voices in his head are too loud . offered ear plugs and pillow. pt stated the pillows are too thin
[2022-05-30 12:47] VITALS: BP 113/84; PULSE 98; RESP 16; TEMP 37.2; O2SAT 94
[2022-05-30 15:34] VITALS: BP 105/57; PULSE 89; RESP 14; O2SAT 95
--- NOTE | 2022-05-30 16:03 | PC.NURSE ---
Marquise, nurse director at [facility],
--- NOTE | 2022-05-30 16:18 | PC.NURSE ---
pt incontinent small amount of stool. cleaned and repositioned.
== END 2022-05-30 19:30 | disposition other institution (70) ==
PROVIDERS: Emergency Provider Student in an Organized Health Care Education/Training Program
DX: R07.89 Other chest pain (principal); R00.0 Tachycardia, unspecified; Z20.822 Contact with and (suspected) exposure to COVID-19; I48.91 Unspecified atrial fibrillation; I50.9 Heart failure, unspecified; F06.30 Mood disorder due to known physiological condition, unspecified; Z87.820 Personal history of traumatic brain injury; Z86.73 Personal history of transient ischemic attack (TIA), and cerebral infarction without residual deficits; Z87.891 Personal history of nicotine dependence; Z79.02 Long term (current) use of antithrombotics/antiplatelets; Z79.899 Other long term (current) drug therapy; Z79.01 Long term (current) use of anticoagulants
CPT/HCPCS: 71045; 80053; 83880; 84484; 85025; 85610; 85730; 87502; 87635; 93005; 96374; 96376; 99284

== ENCOUNTER 2022-05-31 15:47 | Emergency (ER) | payer MEDICAID, SELFPAY ==
[2022-05-31 16:00] VITALS: BP 122/76; PULSE 105; O2SAT 95
[2022-05-31 16:08] VITALS: BP 80/54; PULSE 111; RESP 16; TEMP 36.8; O2SAT 93; BMI 53.8
--- NOTE | 2022-05-31 16:19 | ECG_ITS ---
Test Reason : CHEST PAIN Blood Pressure : / mmHG Vent. Rate : 096 BPM Atrial Rate : 000 BPM P-R Int : 000 ms QRS Dur : 080 ms QT Int : 310 ms P-R-T Axes : 000 001 -40 degrees QTc Int : 391 ms Atrial fibrillation Low voltage QRS Nonspecific ST and T wave abnormality Abnormal ECG When compared with ECG of 30-MAY-2022 09:36, Nonspecific T wave abnormality, worse in Inferior leads Nonspecific T wave abnormality, worse in Anterior leads Referred By: Linda Vera Electronically Signed By:Jaylan Rouse
--- NOTE | 2022-05-31 16:21 | ED.CHESTPAIN ---
HPI - Chest Pain General Chief Complaint: Chest Pain Stated Complaint: CHEST PAIN INTO THROAT,NO MEDS TODAY,ASA GIVEN Time Seen by Provider: 05/31/22 15:56 Source: patient Mode of arrival: EMS Limitations: no limitations History of Present Illness HPI narrative: Patient is a 57-year-old male who presents to the emergency department today via EMS coming from a senior living. He reports that he had chest pain with onset at 06:30 this morning it is described as intermittent and sharp/stabbing pain. EMS gave him aspirin 324 mg. Patient also states that there was no nurse at his senior living today to provide medication or food. Denies headache, dizziness, lightheadedness, cough, shortness of breath, nausea, vomiting, abdominal pain. Related Data Home Medications Medication Instructions Recorded Confirmed atorvastatin 40 mg tablet 40 mg PO BEDTIME 02/28/22 03/28/22 baclofen 10 mg tablet 10 mg PO BID 02/28/22 03/28/22 buspirone 15 mg tablet 1 tab PO TID 02/28/22 03/28/22 gabapentin 400 mg capsule 400 mg TID 02/28/22 03/28/22 levetiracetam 500 mg tablet 500 mg PO BID 02/28/22 03/28/22 lorazepam 0.5 mg tablet (Ativan) 1 tab PO DAILY 02/28/22 03/28/22 lorazepam 1 mg tablet (Ativan) 1 tab PO BEDTIME 02/28/22 03/28/22 melatonin 5 mg capsule 2 cap PO BEDTIME 02/28/22 03/28/22 metoprolol tartrate 50 mg tablet 50 mg PO BID 02/28/22 03/28/22 mirtazapine 15 mg tablet 15 mg PO BEDTIME 02/28/22 03/28/22 olanzapine 15 mg tablet (Zyprexa) 1 tab PO BEDTIME 02/28/22 03/28/22 pantoprazole 40 mg tablet,delayed 40 mg PO DAILY@0630 02/28/22 03/28/22 release cetirizine 10 mg tablet 10 mg PO DAILY 03/01/22 03/28/22 docusate sodium 100 mg capsule 100 mg PO BID 03/01/22 03/28/22 finasteride 5 mg tablet 5 mg PO DAILY 03/01/22 03/28/22 furosemide 20 mg tablet 20 mg PO DAILY PRN fluid overload 03/01/22 03/28/22 haloperidol 2 mg tablet 1 tab PO TID 03/01/22 03/28/22 lorazepam 0.5 mg tablet (Ativan) 1 tab PO DAILY PRN Anxiety 03/01/22 03/28/22 midodrine 5 mg tablet 1 tab PO TIDAC 03/01/22 03/28/22 olanzapine 5 mg tablet (Zyprexa) 5 mg PO BID@0900,1500 03/01/22 03/28/22 rivaroxaban 20 mg tablet (Xarelto) 20 mg PO BEDTIME 03/01/22 03/28/22 acetaminophen 325 mg tablet 650 mg PO Q4H PRN headache/fever 03/28/22 03/28/22 albuterol sulfate 2.5 mg/3 mL 2.5 mg inhalation TID PRN 03/28/22 03/28/22 (0.083 %) solution for nebulization Shortness Of Breath azelastine 0.05 % eye drops 1 drp ophthalmic (eye) BID PRN 03/28/22 03/28/22 Allergy Symptoms calcium carbonate 430 mg calcium 430 mg PO TID PRN Indigestion 03/28/22 03/28/22 (1,000 mg) chewable tablet furosemide 20 mg tablet 20 mg PO DAILY 03/28/22 03/28/22 lamotrigine 100 mg tablet 100 mg PO BEDTIME 03/28/22 03/28/22 (Lamictal) lamotrigine 25 mg tablet (Lamictal) 25 mg PO BEDTIME 03/28/22 03/28/22 menthol 4 % topical gel (Biofreeze 1 appl topical BID 03/28/22 03/28/22 (menthol)) menthol 4 % topical gel (Biofreeze 1 appl topical Q2H PRN Pain (Scale 03/28/22 03/28/22 (menthol)) Score 1-3) nitroglycerin 0.4 mg sublingual 0.4 mg sublingual Q5M PRN Chest 03/28/22 03/28/22 tablet Pain polyvinyl alcohol 1.4 % eye drops 1 drp ophthalmic (eye) DAILY 03/28/22 03/28/22 pseudoephedrine-guaifenesin ER 60 1 tab PO BID PRN Congestion 03/28/22 03/28/22 mg-600 mg tablet,extend release 12hr (Mucus D) sertraline 100 mg tablet 100 mg PO DAILY 03/28/22 03/28/22 sertraline 50 mg tablet (Zoloft) 50 mg PO DAILY 03/28/22 03/28/22 tramadol 100 mg tablet 100 mg PO Q6H PRN Back Pain 03/28/22 03/28/22 Previous Rx's Medication Instructions Recorded cefuroxime axetil 250 mg tablet 250 mg PO BID 7 days #14 tabs 03/21/22 Allergies Allergy/AdvReac Type Severity Reaction Status Date / Time No Known Allergies Allergy Verified 12/15/21 14:53 Review of Systems Review of Systems: Constitutional : No No Fever, No Chills ENT/Mouth :? No sore throat, No Rhinorrhea Eyes: No Eye Pain, No Swelling Cardiovascular : pos Chest Pain, No SOB, No Edema, No Palpitations Respiratory : No Cough, No Sputum Gastrointestinal : No Nausea, No Vomiting, No Diarrhea, No abdominal Pain Genitourinary : No Dysuria, No Urinary Frequency Musculoskeletal : No joint pain, No Myalgias, No Joint Swelling Skin : No Skin Lesions, No rash Neuro : No Weakness, No Numbness, No Dizziness, No Headache Psych : No Anxiety/Panic, No Depression PMFSH Past Medical History Attestation statement: The following information was validated with the patient. Source: old records reviewed Medical History Afib Anxiety disorder CHF (congestive heart failure) Cognitive disorder COPD (chronic obstructive pulmonary disease) CVA (cerebrovascular accident) Traumatic brain injury Social History Social History Alcohol intake: never Patient Tobacco Use Status: Former Tobacco user Advance Directives: Yes Advance Directives on File: Yes Advance Directives Date on File: 11/11/21 Physical Exam Vital Signs: Vital Signs: Last Vital Signs Temp 98.3 F 05/31/22 16:08 Pulse 111 H 05/31/22 16:08 Resp 16 05/31/22 16:08 BP 80/54 L 05/31/22 16:08 Pulse Ox 93 05/31/22 16:08 O2 Del Method 05/31/22 16:08 Oxygen Flow Rate 2 05/31/22 16:08 BMI result Body Mass Index 53.8 Appearance: Alert.?Oriented to person, place and time. No acute distress.?Normal affect. Eyes: Pupils equal, round and reactive to light.? ENT: Pharynx normal.?? Neck: Normal inspection.? Neck supple.?? CVS: Heart sounds normal. Normal heart rate and rhythm.? Pulses normal.?? Respiratory: No respiratory distress.? Lung sounds clear to auscultation bilaterally?? Abdomen: Soft and non-tender. Normoactive bowel sounds. Skin: Skin warm and dry.? Normal skin color.? Extremities: No lower extremity edema.? Neuro: Moves all extremities spontaneously. Sensation intact bilaterally. No focal neuro deficits. Course Reevaluation(s) Reevaluation #1: CBC is unremarkable, no leukocytosis or left shift. CMP is overall unremarkable, elevated alkaline phosphatase consistent with baseline, AST and ALT are mildly elevated 38/41 respectively. Abdominal examination is benign, non-tender. No nausea/vomiting. Low suspicion for cholecystitis/cholelithiasis. Blood pressure improving after 1L normal saline, currently 101/73. Troponin <3.5, EKG reveals atrial fibrillation without acute ischemic findings, do not suspect ACS at this time, suspect chest pain to be noncardiac in nature. Awaiting urinalysis, although of note he did have unremarkable urinalysis 2 days ago, low suspicion for UTI however he does wear a [place] catheter chronically for urinary incontinence. At this time there is no source of infection identified. Patient signed out to Sue Jensen pending urinalysis, if unremarkable patient would be stable for discharge back to senior living. Time: 17:32 Medical Decision Making Medical Decision Making MDM Narrative: Patient is a 57-year-old male with a past medical history of atrial fibrillation on xarelto, anxiety, CHF, cognitive disorder, COPD on chronic 2L O2, CVA with left sided hemiparesis, TBI who presents to the emergency department for evaluation of chest pain from senior living via EMS. Received aspirin pre arrival via EMS. Of note patient was seen in the emergency department yesterday after having also endorsed Chest pain that resolved once he got into the ambulance. Had CBC obtained which was normal, undetectable troponin, EKG revealing AFib RVR requiring IV Lopressor, viral testing was negative and chest x-ray was negative for acute abnormalities. Upon examination today, he is overall well-appearing, alert, speaking clear full sentences. O2 93% on 2 L via nasal cannula, he is afebrile without tachypnea. Review of prior ED records reveals baseline pulse oximetry around 92-93%. Lung sounds are diminished bilaterally. However he is able to speak clear full sentences. He presents tachycardic and hypotensive, this time no clear source of infection, however will obtain CBC, CMP, EKG, troponin, lactic acid, blood cultures, and patient to receive 1L normal saline IV fluid. At this time do not see indication to repeat chest x-ray. Lab Data MDM Lab Attestation statement: I reviewed the patient's lab results. Result Diagrams: 05/31/22 16:50 05/31/22 16:50 Labs: Lab Results 05/31/22 05/31/22 05/31/22 Range/Units 16:50 16:50 16:50 WBC 10.1 (4.8-10.8) X10*3/uL RBC 5.18 (4.60-5.80) X10*6/uL Hgb 15.4 (14.0-18.0) g/dl Hct 47.0 (42.0-52.0) % MCV 90.7 (80.0-98.0) fL MCH 29.7 (27.0-33.0) pg MCHC 32.8 (31.0-36.0) g/dl RDW 14.2 (11.0-16.0) % Plt Count 306 (160-400) X10*3/uL MPV 9.8 (9.4-12.4) fL Immature Gran % (Auto) 0.9 H (0.0-0.4) % Neut % (Auto) 57.3 (45-73) % Lymph % (Auto) 32.9 (20-40) % Tyrrell % (Auto) 6.6 (2-11) % Eos % (Auto) 1.6 (0-4) % Baso % (Auto) 0.7 (0-2) % Lymph # (Auto) 3.3 (1.2-4.9) X10*3/uL Tyrrell # (Auto) 0.7 (0.1-1.2) X10*3/uL Eos # (Auto) 0.2 (0.0-0.4) X10*3/uL Baso # (Auto) 0.1 (0.0-0.2) X10*3/uL Abs Immat Gran (auto) 0.09 H (0.00-0.03) X10*3/uL Absolute Neuts (auto) 5.8 (2.0-8.3) x10*3/uL Absolute Nucleated RBC 0.000 (0.0-0.012) X10*3/uL Nucleated RBC % (auto) 0.0 (0.0-0.2) /100WBC Sodium 139 (135-145) mmol/L Potassium 4.3 (3.3-5.1) mmol/L Chloride 103 (96-108) mmol/L Carbon Dioxide 28 (22-29) mmol/L Anion Gap 12 (12-20) BUN 13 (9-16) mg/dL Creatinine 0.96 (0.5-1.4) mg/dL Estim Creat Clear Calc 149.9 Estimated GFR > 60 Random Glucose 111 (60-115) mg/dL Lactic Acid (0.5-2.0) mmol/L Calcium 9.7 (8.4-10.2) mg/dL Magnesium 2.3 (1.6-2.6) mg/dL Total Bilirubin 0.7 (0.0-1.0) mg/dL AST 38 H (5-37) U/L ALT 41 H (0-40) U/L Alkaline Phosphatase 135 H (39-117) U/L Troponin I High Sens (<3.5-35.0) ng/L B-Natriuretic Peptide (<100) pg/mL Total Protein 7.3 (6.5-8.0) g/dL Albumin 4.7 (3.5-5.0) g/dL Influenza Type A (PCR) NEGATIVE (Negative) Influenza Type B (PCR) NEGATIVE (Negative) RSV RNA Qual (PCR) NEGATIVE (Negative) SARS-CoV-2 RNA (RT-PCR) NEGATIVE (Negative) 05/31/22 05/31/22 05/31/22 Range/Units 16:50 16:50 16:50 WBC (4.8-10.8) X10*3/uL RBC (4.60-5.80) X10*6/uL Hgb (14.0-18.0) g/dl Hct (42.0-52.0) % MCV (80.0-98.0) fL MCH (27.0-33.0) pg MCHC (31.0-36.0) g/dl RDW (11.0-16.0) % Plt Count (160-400) X10*3/uL MPV (9.4-12.4) fL Immature Gran % (Auto) (0.0-0.4) % Neut % (Auto) (45-73) % Lymph % (Auto) (20-40) % Tyrrell % (Auto) (2-11) % Eos % (Auto) (0-4) % Baso % (Auto) (0-2) % Lymph # (Auto) (1.2-4.9) X10*3/uL Tyrrell # (Auto) (0.1-1.2) X10*3/uL Eos # (Auto) (0.0-0.4) X10*3/uL Baso # (Auto) (0.0-0.2) X10*3/uL Abs Immat Gran (auto) (0.00-0.03) X10*3/uL Absolute Neuts (auto) (2.0-8.3) x10*3/uL Absolute Nucleated RBC (0.0-0.012) X10*3/uL Nucleated RBC % (auto) (0.0-0.2) /100WBC Sodium (135-145) mmol/L Potassium (3.3-5.1) mmol/L Chloride (96-108) mmol/L Carbon Dioxide (22-29) mmol/L Anion Gap (12-20) BUN (9-16) mg/dL Creatinine (0.5-1.4) mg/dL Estim Creat Clear Calc Estimated GFR Random Glucose (60-115) mg/dL Lactic Acid 1.5 (0.5-2.0) mmol/L Calcium (8.4-10.2) mg/dL Magnesium (1.6-2.6) mg/dL Total Bilirubin (0.0-1.0) mg/dL AST (5-37) U/L ALT (0-40) U/L Alkaline Phosphatase (39-117) U/L Troponin I High Sens < 3.5 (<3.5-35.0) ng/L B-Natriuretic Peptide 20 (<100) pg/mL Total Protein (6.5-8.0) g/dL Albumin (3.5-5.0) g/dL Influenza Type A (PCR) (Negative) Influenza Type B (PCR) (Negative) RSV RNA Qual (PCR) (Negative) SARS-CoV-2 RNA (RT-PCR) (Negative) Independent Interpretation I performed an independent interpretation of an: EKG Interpretation: Rate: 96 Rhythm:? Atrial fibrillation Normal QRS complex.?? ST T wave :??No ST elevation, no ST depression, no T-wave inversion qTC: 391 prior studies:? May 2022 The study has been interpreted contemporaneously by me. Discharge Plan Discharge Clinical Impression: Chest pain Patient Disposition: Home, Self-Care Instructions: Noncardiac Chest Pain (ED) Prescriptions: No Action lorazepam [Ativan] 0.5 mg tablet 1 tab PO DAILY olanzapine [Zyprexa] 15 mg tablet 1 tab PO BEDTIME lorazepam [Ativan] 1 mg tablet 1 tab PO BEDTIME buspirone 15 mg tablet 1 tab PO TID melatonin 5 mg capsule 2 cap PO BEDTIME mirtazapine 15 mg Tablet 15 mg PO BEDTIME atorvastatin 40 mg Tablet 40 mg PO BEDTIME gabapentin 400 mg Capsule 400 mg TID baclofen 10 mg Tablet 10 mg PO BID levetiracetam 500 mg Tablet 500 mg PO BID pantoprazole 40 mg Tablet,Delayed Release (Dr/Ec) 40 mg PO DAILY@0630 metoprolol tartrate 50 mg Tablet 50 mg PO BID cetirizine 10 mg Tablet 10 mg PO DAILY olanzapine [Zyprexa] 5 mg tablet 5 mg PO BID@0900,1500 docusate sodium 100 mg Capsule 100 mg PO BID furosemide 20 mg Tablet 20 mg PO DAILY PRN (Reason: fluid overload) haloperidol 2 mg tablet 1 tab PO TID finasteride 5 mg Tablet 5 mg PO DAILY lorazepam [Ativan] 0.5 mg tablet 1 tab PO DAILY PRN (Reason: Anxiety) Xarelto 20 mg Tablet 20 mg PO BEDTIME Rx Instructions: must administer with evening meal midodrine 5 mg tablet 1 tab PO TIDAC azelastine 0.05 % Drops 1 drp OPHTHALMIC (EYE) BID PRN (Reason: Allergy Symptoms) acetaminophen 325 mg Tablet 650 mg PO Q4H PRN (Reason: headache/fever) albuterol sulfate 2.5 mg /3 mL (0.083 %) Solution For Nebulization 2.5 mg INHALATION TID PRN (Reason: Shortness Of Breath) polyvinyl alcohol 1.4 % Drops 1 drp OPHTHALMIC (EYE) DAILY sertraline 100 mg Tablet 100 mg PO DAILY Rx Instructions: tdd = 150 mg pseudoephedrine-guaifenesin [Mucus D] 60-600 mg Tablet Extended Release 12 Hr 1 tab PO BID PRN (Reason: Congestion) lamotrigine [Lamictal] 25 mg Tablet 25 mg PO BEDTIME Rx Instructions: tdd = 125 mg nitroglycerin 0.4 mg Tablet, Sublingual 0.4 mg SUBLINGUAL Q5M PRN (Reason: Chest Pain) Rx Instructions: do not exceed 3 doses per episode sertraline [Zoloft] 50 mg tablet 50 mg PO DAILY Rx Instructions: tdd = 150 mg Biofreeze (menthol) 4 % Gel 1 appl TOPICAL BID Rx Instructions: apply a thin layer mid to lower back Biofreeze (menthol) 4 % Gel 1 appl TOPICAL Q2H PRN (Reason: Pain (Scale Score 1-3)) calcium carbonate 430 mg calcium (1,000 mg) Tablet,Chewable 430 mg PO TID PRN (Reason: Indigestion) tramadol 100 mg Tablet 100 mg PO Q6H PRN (Reason: Back Pain) furosemide 20 mg Tablet 20 mg PO DAILY lamotrigine [Lamictal] 100 mg Tablet 100 mg PO BEDTIME cefuroxime axetil 250 mg tablet 250 mg PO BID 7 Days Qty: 14 0RF Rx Instructions: 03/23/22 to 03/30/22
[2022-05-31 17:02] LABS: MANUAL DIFF FLAG NO
[2022-05-31 17:03] LABS: Basophils Absolute Auto 0.1 X10*3/uL (0.0-0.2); Basophils Percent Auto 0.7 % (0-2); Eosinophils Absolute Auto 0.2 X10*3/uL (0.0-0.4); Eosinophils Percent Auto 1.6 % (0-4); Hemoglobin 15.4 g/dl (14.0-18.0); Imm Gran Abs Auto 0.09 X10*3/uL (0.00-0.03); Imm Gran Pct Auto 0.9 % (0.0-0.4); Lymphocytes Absolute Auto 3.3 X10*3/uL (1.2-4.9); Lymphocytes Percent Auto 32.9 % (20-40); Mean Corpuscular HGB Conc 32.8 g/dl (31.0-36.0); Mean Corpuscular Hemoglobin 29.7 pg (27.0-33.0); Mean Corpuscular Volume 90.7 fL (80.0-98.0); Mean Platelet Volume 9.8 fL (9.4-12.4); Monocytes Absolute Auto 0.7 X10*3/uL (0.1-1.2); Monocytes Percent Auto 6.6 % (2-11); Neutrophils Absolute Auto 5.8 x10*3/uL (2.0-8.3); Neutrophils Percent Auto 57.3 % (45-73); Platelet Count 306 X10*3/uL (160-400); Red Blood Count 5.18 X10*6/uL (4.60-5.80); Red Cell Distribution Width 14.2 % (11.0-16.0); White Blood Count 10.1 X10*3/uL (4.8-10.8)
[2022-05-31 17:14] LABS: Lactic Acid 1.5 mmol/L (0.5-2.0)
[2022-05-31 17:18] LABS: Alanine Aminotransferase 41 U/L (0-40); Albumin Level 4.7 g/dL (3.5-5.0); Alkaline Phosphatase 135 U/L (39-117); Anion Gap 12 (12-20); Aspartate Amino Transferase 38 U/L (5-37); Bilirubin Total 0.7 mg/dL (0.0-1.0); Blood Urea Nitrogen 13 mg/dL (9-16); Calcium 9.7 mg/dL (8.4-10.2); Carbon Dioxide 28 mmol/L (22-29); Chloride 103 mmol/L (96-108); Creatinine Clr Calc Pharmacy 149.9; Estimated Glomerular Filt Rate > 60; Glucose Random 111 mg/dL (60-115); Magnesium 2.3 mg/dL (1.6-2.6); Potassium 4.3 mmol/L (3.3-5.1); Sodium 139 mmol/L (135-145); Total Protein 7.3 g/dL (6.5-8.0)
[2022-05-31 17:26] LABS: Troponin-I High Sensitivity < 3.5 ng/L (<3.5-35.0)
[2022-05-31 17:37] LABS: B Type Natriuretic Peptide 20 pg/mL (<100)
[2022-05-31 17:46] LABS: Influenza A PCR NEGATIVE (Negative); Influenza B PCR NEGATIVE (Negative); Resp Syncy Virus RNA Qual PCR NEGATIVE (Negative); SARS COV2 PCR INHOUSE NEGATIVE (Negative)
[2022-05-31 18:12] VITALS: BP 106/71; PULSE 97; RESP 20; O2SAT 98
[2022-05-31 18:20] LABS: Appearance Urine Clear; Color Urine Yellow; Glucose Urine UA Negative (Negative); Leukocyte Esterase Urine Negative (Negative); Nitrite Urine Positive (Negative); UMIC TRIGGER UACC YES; Urine Blood Negative (Negative); Urine Ketones Negative (Negative); Urine Protein Negative (Neg-Trace)
[2022-05-31 18:25] LABS: Lipase 28 U/L (8-78)
[2022-05-31 18:28] LABS: Bacteria Urine 4+ (None Seen); Hyaline Casts Urine 0-2 /LPF (0-2); RBC Urine 0-2 /HPF (0-2); Squamous Epithelial Cell Urine 0-2 /HPF (0-2); UACC Culture Trigger YES; WBC Urine 0-5 /HPF (0-5)
== END 2022-05-31 21:48 | disposition home or self-care (01) ==
PROVIDERS: Nurse Practitioner Family; Emergency Provider Internal Medicine
DX: R07.89 Other chest pain (principal); I48.91 Unspecified atrial fibrillation; R06.02 Shortness of breath; Z79.01 Long term (current) use of anticoagulants; Z20.822 Contact with and (suspected) exposure to COVID-19; Z87.891 Personal history of nicotine dependence; Z99.81 Dependence on supplemental oxygen
CPT/HCPCS: 0241U; 36415; 80053; 81001; 83605; 83690; 83735; 83880; 84484; 85025; 87040; 87086; 93005; 99284

== ENCOUNTER 2022-06-07 05:55 | Emergency (ER) | payer MEDICAID, SELFPAY ==
--- NOTE | 2022-06-07 | ECG_ITS ---
Test Reason : CHEST PAIN Blood Pressure : / mmHG Vent. Rate : 084 BPM Atrial Rate : 000 BPM P-R Int : 000 ms QRS Dur : 076 ms QT Int : 366 ms P-R-T Axes : 000 004 023 degrees QTc Int : 432 ms Atrial fibrillation Low voltage QRS Cannot rule out Anterior infarct , age undetermined Abnormal ECG When compared with ECG of 31-MAY-2022 17:44, Nonspecific T wave abnormality no longer evident in Anterolateral leads Referred By: Generic ED Physician Electronically Signed By:JAGDISH LIU MD
--- NOTE | ~2022-06-07 | XR_ITS ---
EXAMINATION: XR CHEST CLINICAL INFORMATION: Chest pain COMPARISON: May 30, 2022 TECHNIQUE: AP portable view of the chest was obtained. FINDINGS: There are small lung volumes. There is again noted to be region of density about the mid left lung and medial aspect of the lower right lung. No pneumothorax or significant pleural effusion is identified. The heart is enlarged. There are some regions of reticulation within the lungs bilaterally which does not appear significantly changed and may be related to chronic interstitial lung disease or pulmonary vascular congestion. XR/XR chest 1V IMPRESSION: Cardiomegaly with probable mild interstitial edema versus chronic interstitial lung disease. Regions of parenchymal disease seen within the mid left lung and medial aspect of the right lower lobe. No significant changes appreciated.
[2022-06-07 06:09] VITALS: BP 108/69; BP 152/79; PULSE 77; PULSE 80; RESP 20; TEMP 36.9; O2SAT 94; O2SAT 95; BMI 28.3
--- NOTE | 2022-06-07 07:02 | PC.NURSE ---
Pt's has been yelling and denies the tech and this nurse to complete lab work, and any other interventions. Provider is notified.
--- NOTE | 2022-06-07 07:14 | MHC.EDTECH ---
pt was yelling at staff that he was wet. pt was changed by zeke and myself. pt is still yelling RN aware
[2022-06-07 07:27] LABS: Mean Corpuscular HGB Conc 32.5 g/dl (31.0-36.0); Mean Corpuscular Volume 92.4 fL (80.0-98.0); Mean Platelet Volume 9.5 fL (9.4-12.4); Platelet Count 242 X10*3/uL (160-400); Red Blood Count 4.33 X10*6/uL (4.60-5.80); Red Cell Distribution Width 14.1 % (11.0-16.0); White Blood Count 10.3 X10*3/uL (4.8-10.8)
--- NOTE | 2022-06-07 07:33 | ED.CHESTPAIN ---
HPI - Chest Pain General Chief Complaint: Chest Pain Stated Complaint: Chest pain Time Seen by Provider: 06/07/22 06:52 Source: patient and EMS Mode of arrival: EMS Limitations: no limitations History of Present Illness HPI narrative: 57-year-old male with a history of COPD on supplemental O2,CHF, AFib on Xarelto, CVA with left-sided hemiparesis patient resides in a skilled nursing. Patient presented by EMS complaining of chest pain which is nonspecific, patient in the emergency department is very argumentative and agitated with the staff, patient describing nonspecific chest pain that is gone now, no shortness of breath, no other complaint. Related Data Home Medications Medication Instructions Recorded Confirmed atorvastatin 40 mg tablet 40 mg PO BEDTIME 02/28/22 03/28/22 baclofen 10 mg tablet 10 mg PO BID 02/28/22 03/28/22 buspirone 15 mg tablet 1 tab PO TID 02/28/22 03/28/22 gabapentin 400 mg capsule 400 mg TID 02/28/22 03/28/22 levetiracetam 500 mg tablet 500 mg PO BID 02/28/22 03/28/22 lorazepam 0.5 mg tablet (Ativan) 1 tab PO DAILY 02/28/22 03/28/22 lorazepam 1 mg tablet (Ativan) 1 tab PO BEDTIME 02/28/22 03/28/22 melatonin 5 mg capsule 2 cap PO BEDTIME 02/28/22 03/28/22 metoprolol tartrate 50 mg tablet 50 mg PO BID 02/28/22 03/28/22 mirtazapine 15 mg tablet 15 mg PO BEDTIME 02/28/22 03/28/22 olanzapine 15 mg tablet (Zyprexa) 1 tab PO BEDTIME 02/28/22 03/28/22 pantoprazole 40 mg tablet,delayed 40 mg PO DAILY@0630 02/28/22 03/28/22 release cetirizine 10 mg tablet 10 mg PO DAILY 03/01/22 03/28/22 docusate sodium 100 mg capsule 100 mg PO BID 03/01/22 03/28/22 finasteride 5 mg tablet 5 mg PO DAILY 03/01/22 03/28/22 furosemide 20 mg tablet 20 mg PO DAILY PRN fluid overload 03/01/22 03/28/22 haloperidol 2 mg tablet 1 tab PO TID 03/01/22 03/28/22 lorazepam 0.5 mg tablet (Ativan) 1 tab PO DAILY PRN Anxiety 03/01/22 03/28/22 midodrine 5 mg tablet 1 tab PO TIDAC 03/01/22 03/28/22 olanzapine 5 mg tablet (Zyprexa) 5 mg PO BID@0900,1500 03/01/22 03/28/22 rivaroxaban 20 mg tablet (Xarelto) 20 mg PO BEDTIME 03/01/22 03/28/22 acetaminophen 325 mg tablet 650 mg PO Q4H PRN headache/fever 03/28/22 03/28/22 albuterol sulfate 2.5 mg/3 mL 2.5 mg inhalation TID PRN 03/28/22 03/28/22 (0.083 %) solution for nebulization Shortness Of Breath azelastine 0.05 % eye drops 1 drp ophthalmic (eye) BID PRN 03/28/22 03/28/22 Allergy Symptoms calcium carbonate 430 mg calcium 430 mg PO TID PRN Indigestion 03/28/22 03/28/22 (1,000 mg) chewable tablet furosemide 20 mg tablet 20 mg PO DAILY 03/28/22 03/28/22 lamotrigine 100 mg tablet 100 mg PO BEDTIME 03/28/22 03/28/22 (Lamictal) lamotrigine 25 mg tablet (Lamictal) 25 mg PO BEDTIME 03/28/22 03/28/22 menthol 4 % topical gel (Biofreeze 1 appl topical BID 03/28/22 03/28/22 (menthol)) menthol 4 % topical gel (Biofreeze 1 appl topical Q2H PRN Pain (Scale 03/28/22 03/28/22 (menthol)) Score 1-3) nitroglycerin 0.4 mg sublingual 0.4 mg sublingual Q5M PRN Chest 03/28/22 03/28/22 tablet Pain polyvinyl alcohol 1.4 % eye drops 1 drp ophthalmic (eye) DAILY 03/28/22 03/28/22 pseudoephedrine-guaifenesin ER 60 1 tab PO BID PRN Congestion 03/28/22 03/28/22 mg-600 mg tablet,extend release 12hr (Mucus D) sertraline 100 mg tablet 100 mg PO DAILY 03/28/22 03/28/22 sertraline 50 mg tablet (Zoloft) 50 mg PO DAILY 03/28/22 03/28/22 tramadol 100 mg tablet 100 mg PO Q6H PRN Back Pain 03/28/22 03/28/22 Previous Rx's Medication Instructions Recorded cefuroxime axetil 250 mg tablet 250 mg PO BID 7 days #14 tabs 03/21/22 cefuroxime axetil 500 mg tablet 500 mg PO Q12H 5 days #10 tabs 05/31/22 Allergies Allergy/AdvReac Type Severity Reaction Status Date / Time No Known Allergies Allergy Verified 12/15/21 14:53 Review of Systems Review of Systems: All other systems are reviewed and are negative Constitutional: Reports as per HPI and Reports no additional constitutional complaints Eyes: Reports as per HPI and Reports no additional eye complaints Reports system reviewed and no additional complaints, except as documented Cardiovascular: Reports as per HPI and Reports no additional cardiovascular complaints Respiratory: Reports as per HPI and Reports no additional respiratory complaints Gastrointestinal: Reports as per HPI and Reports no additional gastrointestinal complaints Genitourinary: Reports no additional female genitourinary complaints Musculoskeletal: Reports no additional musculoskeletal complaints Skin/Breast: Reports system reviewed and no additional complaints, except as docu Psychiatric: Reports no additional psychiatric complaints Endocrine: Reports no additional endocrine complaints Hematologic/Lymphatic: Reports no additional hematologic/lymphatic complaints Allergic/Immunologic: Reports no additional allergic/immunologic complaints Reports system reviewed and no additional complaints, except as documented and Reports Abnormal speech present [facility] Past Medical History Medical History Afib Anxiety disorder CHF (congestive heart failure) Cognitive disorder COPD (chronic obstructive pulmonary disease) CVA (cerebrovascular accident) Traumatic brain injury Social History Social History Alcohol intake: never Patient Tobacco Use Status: Former Tobacco user Advance Directives: Yes Advance Directives on File: Yes Advance Directives Date on File: 11/11/21 Physical Exam Vital Signs: Vital Signs: Last Vital Signs Temp 98.4 F 06/07/22 06:09 Pulse 94 06/07/22 10:40 Resp 17 06/07/22 10:40 BP 108/69 06/07/22 06:09 Pulse Ox 94 06/07/22 10:40 O2 Del Method 06/07/22 10:40 O2 Flow Rate 3 06/07/22 10:40 BMI result Body Mass Index 28.3 Vital signs have been reviewed as appeared to be correct. Blood pressure normal. Heart rate normal. Respiration rate normal. Temperature normal. Oxygen saturation normal. Appearance: Alert. Oriented. No acute distress. Head: Normal external exam. Normocephalic. Atraumatic. No Campos signs noted. No raccoon eyes noted Eyes: PERRLA. EOMI. Conjunctiva and sclera normal. Eyelids normal. ENT: TM's Normal. Pharynx normal. Uvula midline. Moist mucous membranes. No trismus noted. No drooling noted. No muffled voice noted. Neck: Normal inspection. Neck supple. FROM. No adenopathy. Thyroid Normal. No meningeal signs. No neck mass noted. CVS: Normal heart rate and rhythm. Heart sound normal. No murmurs noted. Pulses normal throughout. Respiratory: No respiratory distress. Painless inspiration. Breath sounds normal. No wheezes/rales/rhonchi noted. Chest nontender. No accessory muscle usage noted or decreased air movement noted. Abdomen: Soft and nontender. Bowel sounds normal in all 4 quadrants. No distention noted. No organomegaly noted. No visible injury noted. Back: No CVA tenderness. Full range of motion noted. Skin: Skin warm and dry. Normal skin color. Normal skin turgor. No rashes/lesions/lacerations noted. Extremities: No lower extremity edema. Extremities exhibit normal range of motion. Extremities nontender. Neuro: Oriented. Cranial nerve exam: II-XII are grossly intact No motor deficit. No sensory deficit. Reflexes normal. Course Course Course Narrative: 57-year-old male history of agitation came in anxious agitated complaining of nonspecific chest pain with unremarkable workup for chest pain will return back to the snf. Because the patient grew mix bacterial david in the previous urine culture new UA with culture and sensitivity were sent today and urine analysis is unremarkable. Medical Decision Making Differential Diagnosis Differential Diagnoses: The differential diagnosis associated with the presentation includes (Chest pain, anxiety, agitation, pneumonia, rib fracture.) Lab Data MDM Lab Attestation statement: I reviewed the patient's lab results. Result Diagrams: 06/07/22 07:21 06/07/22 07:21 Labs: Lab Results 06/07/22 06/07/22 06/07/22 Range/Units 07:21 07:21 07:21 WBC 10.3 (4.8-10.8) X10*3/uL RBC 4.33 L (4.60-5.80) X10*6/uL Hgb 13.0 L (14.0-18.0) g/dl Hct 40.0 L (42.0-52.0) % MCV 92.4 (80.0-98.0) fL MCH 30.0 (27.0-33.0) pg MCHC 32.5 (31.0-36.0) g/dl RDW 14.1 (11.0-16.0) % Plt Count 242 (160-400) X10*3/uL MPV 9.5 (9.4-12.4) fL Absolute Nucleated RBC 0.000 (0.0-0.012) X10*3/uL Nucleated RBC % (auto) 0.0 (0.0-0.2) /100WBC PT (10.0-13.1) SEC INR (0.9-1.1) APTT (26.0-36.4) SEC Sodium 143 (135-145) mmol/L Potassium 4.0 (3.3-5.1) mmol/L Chloride 108 (96-108) mmol/L Carbon Dioxide 28 (22-29) mmol/L Anion Gap 11 L (12-20) BUN 13 (9-16) mg/dL Creatinine 0.73 (0.5-1.4) mg/dL Estim Creat Clear Calc 144.4 Estimated GFR > 60 Random Glucose 105 (60-115) mg/dL Calcium 8.9 D (8.4-10.2) mg/dL Total Bilirubin 0.5 (0.0-1.0) mg/dL AST 18 (5-37) U/L ALT 28 (0-40) U/L Alkaline Phosphatase 100 (39-117) U/L Troponin I High Sens < 3.5 (<3.5-35.0) ng/L Total Protein 6.2 L (6.5-8.0) g/dL Albumin 4.0 (3.5-5.0) g/dL Urine Color Urine Appearance Urine pH (5.0-9.0) Ur Specific [place] (1.005-1.025) Urine Protein (Neg-Trace) mg/dL Urine Glucose (UA) (Negative) mg/dL Urine Ketones (Negative) mg/dL Urine Blood (Negative) Urine Nitrite (Negative) Ur Leukocyte Esterase (Negative) 06/07/22 06/07/22 Range/Units 07:21 10:43 WBC (4.8-10.8) X10*3/uL RBC (4.60-5.80) X10*6/uL Hgb (14.0-18.0) g/dl Hct (42.0-52.0) % MCV (80.0-98.0) fL MCH (27.0-33.0) pg MCHC (31.0-36.0) g/dl RDW (11.0-16.0) % Plt Count (160-400) X10*3/uL MPV (9.4-12.4) fL Absolute Nucleated RBC (0.0-0.012) X10*3/uL Nucleated RBC % (auto) (0.0-0.2) /100WBC PT 17.8 H (10.0-13.1) SEC INR 1.5 H (0.9-1.1) APTT 40.0 H D (26.0-36.4) SEC Sodium (135-145) mmol/L Potassium (3.3-5.1) mmol/L Chloride (96-108) mmol/L Carbon Dioxide (22-29) mmol/L Anion Gap (12-20) BUN (9-16) mg/dL Creatinine (0.5-1.4) mg/dL Estim Creat Clear Calc Estimated GFR Random Glucose (60-115) mg/dL Calcium (8.4-10.2) mg/dL Total Bilirubin (0.0-1.0) mg/dL AST (5-37) U/L ALT (0-40) U/L Alkaline Phosphatase (39-117) U/L Troponin I High Sens (<3.5-35.0) ng/L Total Protein (6.5-8.0) g/dL Albumin (3.5-5.0) g/dL Urine Color Yellow Urine Appearance Clear Urine pH 5.5 (5.0-9.0) Ur Specific [place] 1.020 (1.005-1.025) Urine Protein Negative (Neg-Trace) mg/dL Urine Glucose (UA) Negative (Negative) mg/dL Urine Ketones Negative (Negative) mg/dL Urine Blood Negative (Negative) Urine Nitrite Negative (Negative) Ur Leukocyte Esterase Negative (Negative) Independent Interpretation I performed an independent interpretation of an: EKG and Plain X-Ray (No acute intrathoracic pathology.) Interpretation: Atrial fibrillation at 84 beats per minutes, normal intervals, no significant change from previous EKG. Radiology Impression Discussion of test interpretation with radiology: I have reviewed the radiologist's reading. Discharge Plan Discharge Clinical Impression: Atypical chest pain, Agitation Patient Disposition: Xfer Other Transfer Details: BACK TO SKILLED NURSING IN [place] WITH [facility] Instructions: Chest Pain (ED) Prescriptions: No Action lorazepam [Ativan] 0.5 mg tablet 1 tab PO DAILY olanzapine [Zyprexa] 15 mg tablet 1 tab PO BEDTIME lorazepam [Ativan] 1 mg tablet 1 tab PO BEDTIME buspirone 15 mg tablet 1 tab PO TID melatonin 5 mg capsule 2 cap PO BEDTIME mirtazapine 15 mg Tablet 15 mg PO BEDTIME atorvastatin 40 mg Tablet 40 mg PO BEDTIME gabapentin 400 mg Capsule 400 mg TID baclofen 10 mg Tablet 10 mg PO BID levetiracetam 500 mg Tablet 500 mg PO BID pantoprazole 40 mg Tablet,Delayed Release (Dr/Ec) 40 mg PO DAILY@0630 metoprolol tartrate 50 mg Tablet 50 mg PO BID cetirizine 10 mg Tablet 10 mg PO DAILY olanzapine [Zyprexa] 5 mg tablet 5 mg PO BID@0900,1500 docusate sodium 100 mg Capsule 100 mg PO BID furosemide 20 mg Tablet 20 mg PO DAILY PRN (Reason: fluid overload) haloperidol 2 mg tablet 1 tab PO TID finasteride 5 mg Tablet 5 mg PO DAILY lorazepam [Ativan] 0.5 mg tablet 1 tab PO DAILY PRN (Reason: Anxiety) Xarelto 20 mg Tablet 20 mg PO BEDTIME Rx Instructions: must administer with evening meal midodrine 5 mg tablet 1 tab PO TIDAC azelastine 0.05 % Drops 1 drp OPHTHALMIC (EYE) BID PRN (Reason: Allergy Symptoms) acetaminophen 325 mg Tablet 650 mg PO Q4H PRN (Reason: headache/fever) albuterol sulfate 2.5 mg /3 mL (0.083 %) Solution For Nebulization 2.5 mg INHALATION TID PRN (Reason: Shortness Of Breath) polyvinyl alcohol 1.4 % Drops 1 drp OPHTHALMIC (EYE) DAILY sertraline 100 mg Tablet 100 mg PO DAILY Rx Instructions: tdd = 150 mg pseudoephedrine-guaifenesin [Mucus D] 60-600 mg Tablet Extended Release 12 Hr 1 tab PO BID PRN (Reason: Congestion) lamotrigine [Lamictal] 25 mg Tablet 25 mg PO BEDTIME Rx Instructions: tdd = 125 mg nitroglycerin 0.4 mg Tablet, Sublingual 0.4 mg SUBLINGUAL Q5M PRN (Reason: Chest Pain) Rx Instructions: do not exceed 3 doses per episode sertraline [Zoloft] 50 mg tablet 50 mg PO DAILY Rx Instructions: tdd = 150 mg Biofreeze (menthol) 4 % Gel 1 appl TOPICAL BID Rx Instructions: apply a thin layer mid to lower back Biofreeze (menthol) 4 % Gel 1 appl TOPICAL Q2H PRN (Reason: Pain (Scale Score 1-3)) calcium carbonate 430 mg calcium (1,000 mg) Tablet,Chewable 430 mg PO TID PRN (Reason: Indigestion) tramadol 100 mg Tablet 100 mg PO Q6H PRN (Reason: Back Pain) furosemide 20 mg Tablet 20 mg PO DAILY lamotrigine [Lamictal] 100 mg Tablet 100 mg PO BEDTIME cefuroxime axetil 500 mg tablet 500 mg PO Q12H 5 Days Qty: 10 0RF cefuroxime axetil 250 mg tablet 250 mg PO BID 7 Days Qty: 14 0RF Rx Instructions: 03/23/22 to 03/30/22 Referrals: Physician,Unknown J [Primary Care Provider] -
[2022-06-07 07:44] LABS: Alanine Aminotransferase 28 U/L (0-40); Alkaline Phosphatase 100 U/L (39-117); Anion Gap 11 (12-20); Aspartate Amino Transferase 18 U/L (5-37); Bilirubin Total 0.5 mg/dL (0.0-1.0); Blood Urea Nitrogen 13 mg/dL (9-16); Calcium 8.9 mg/dL (8.4-10.2); Carbon Dioxide 28 mmol/L (22-29); Chloride 108 mmol/L (96-108); Creatinine Clr Calc Pharmacy 144.4; Estimated Glomerular Filt Rate > 60; Glucose Random 105 mg/dL (60-115); Sodium 143 mmol/L (135-145); Total Protein 6.2 g/dL (6.5-8.0)
[2022-06-07 07:53] LABS: Troponin-I High Sensitivity < 3.5 ng/L (<3.5-35.0)
[2022-06-07 07:57] LABS: INTERNATIONAL NORM RATIO 1.5 (0.9-1.1); Prothrombin Time 17.8 SEC (10.0-13.1)
--- NOTE | 2022-06-07 09:00 | PC.NURSE ---
[facility] plan for pt to d/c back to the facility
[2022-06-07 10:40] VITALS: PULSE 94; RESP 17; O2SAT 94
[2022-06-07 10:52] LABS: Appearance Urine Clear; Color Urine Yellow; Glucose Urine UA Negative (Negative); Leukocyte Esterase Urine Negative (Negative); Nitrite Urine Negative (Negative); PH 5.5 (5.0-9.0); Urine Blood Negative (Negative); Urine Ketones Negative (Negative); Urine Protein Negative (Neg-Trace)
--- NOTE | 2022-06-07 11:02 | PC.NURSE ---
pt cleaned up multiple times - applied barrier cream to buttocks. new condom cath applied to pt
--- NOTE | 2022-06-07 11:29 | MHC.EDTECH ---
spoke with [facility] for transport [facility] stated that they are on their way
--- NOTE | 2022-06-07 11:44 | PC.NURSE ---
transport here to take pt back to [facility]
== END 2022-06-07 11:47 | disposition other institution (70) ==
PROVIDERS: Emergency Provider Emergency Medicine
DX: R07.89 Other chest pain (principal); J44.9 Chronic obstructive pulmonary disease, unspecified; I48.91 Unspecified atrial fibrillation; Z99.81 Dependence on supplemental oxygen; Z79.899 Other long term (current) drug therapy; Z79.01 Long term (current) use of anticoagulants; Z87.891 Personal history of nicotine dependence
CPT/HCPCS: 36415; 71045; 80053; 81003; 84484; 85027; 85610; 85730; 93005; 99284

== ENCOUNTER 2022-07-04 14:00 | Emergency (ER) | payer MEDICAID, SELFPAY ==
--- NOTE | 2022-07-04 | ECG_ITS ---
Test Reason : CP Blood Pressure : / mmHG Vent. Rate : 082 BPM Atrial Rate : 000 BPM P-R Int : 000 ms QRS Dur : 076 ms QT Int : 364 ms P-R-T Axes : 000 005 043 degrees QTc Int : 425 ms Atrial fibrillation Low voltage QRS Abnormal ECG When compared with ECG of 04-JUL-2022 14:11, No significant change was found Referred By: Gordo Rodriguez Electronically Signed By:JOSEY MESSER
--- NOTE | ~2022-07-04 | XR_ITS ---
EXAMINATION: XR CHEST CLINICAL INFORMATION: Chest pain COMPARISON: Chest 06/07/2022 TECHNIQUE: 2 views of the chest were obtained. FINDINGS: The lungs are hypoexpanded with cardiomegaly and increased pulmonary vascularity suggestive of CHF or interstitial edema. No consolidation seen. No gross bony abnormality. XR/XR chest 2V IMPRESSION: Cardiomegaly with CHF or interstitial edema. Similar findings were seen on 06/26/2022
[2022-07-04 14:33] VITALS: BP 105/64; BP 108/79; PULSE 74; PULSE 90; RESP 18; TEMP 36.8; O2SAT 92; BMI 23.7
[2022-07-04 14:35] LABS: MANUAL DIFF FLAG NO
[2022-07-04 14:37] LABS: Basophils Absolute Auto 0.1 X10*3/uL (0.0-0.2); Basophils Percent Auto 0.6 % (0-2); Eosinophils Absolute Auto 0.1 X10*3/uL (0.0-0.4); Eosinophils Percent Auto 0.7 % (0-4); Hematocrit 41.8 % (42.0-52.0); Hemoglobin 13.4 g/dl (14.0-18.0); Imm Gran Abs Auto 0.11 X10*3/uL (0.00-0.03); Lymphocytes Absolute Auto 3.2 X10*3/uL (1.2-4.9); Lymphocytes Percent Auto 27.5 % (20-40); Mean Corpuscular HGB Conc 32.1 g/dl (31.0-36.0); Mean Corpuscular Hemoglobin 29.3 pg (27.0-33.0); Mean Corpuscular Volume 91.5 fL (80.0-98.0); Mean Platelet Volume 9.8 fL (9.4-12.4); Monocytes Absolute Auto 0.9 X10*3/uL (0.1-1.2); Monocytes Percent Auto 7.7 % (2-11); Neutrophils Absolute Auto 7.2 x10*3/uL (2.0-8.3); Neutrophils Percent Auto 62.5 % (45-73); Platelet Count 250 X10*3/uL (160-400); Red Blood Count 4.57 X10*6/uL (4.60-5.80); Red Cell Distribution Width 14.3 % (11.0-16.0); White Blood Count 11.5 X10*3/uL (4.8-10.8)
--- NOTE | 2022-07-04 14:49 | MHC.EDTECH ---
Pt cleaned and repositioned. Refuses to remove shirt to put on gown.
--- NOTE | 2022-07-04 14:56 | PC.NURSE ---
Addendum entered by Guera Christianson 07/04/22 15:03: x-ray not CT Original Note: Report received from ESTELA Ybarra Pt off in CT at this time, pt has been cleaned and changed, refusing to change into hospital gown
[2022-07-04 14:58] LABS: Alanine Aminotransferase 38 U/L (0-40); Albumin Level 4.2 g/dL (3.5-5.0); Alkaline Phosphatase 129 U/L (39-117); Anion Gap 14 (12-20); Aspartate Amino Transferase 22 U/L (5-37); Bilirubin Total 0.6 mg/dL (0.0-1.0); Blood Urea Nitrogen 16 mg/dL (9-16); Calcium 9.3 mg/dL (8.4-10.2); Carbon Dioxide 25 mmol/L (22-29); Chloride 105 mmol/L (96-108); Creatinine Clr Calc Pharmacy 114.1; Estimated Glomerular Filt Rate > 60; Glucose Random 125 mg/dL (60-115); Potassium 4.2 mmol/L (3.3-5.1); Sodium 140 mmol/L (135-145); Total Protein 6.7 g/dL (6.5-8.0)
--- NOTE | 2022-07-04 15:04 | PC.NURSE ---
pt requesting to leave at this time, at bedside, explained to pt that he would rather the pt stay until all lab work has resulted. Pt in agreement
--- NOTE | 2022-07-04 15:04 | ED.CHESTPAIN ---
HPI - Chest Pain General Chief Complaint: Chest Pain Stated Complaint: CP SINCE YESTERDAY Time Seen by Provider: 07/04/22 14:54 Source: patient Mode of arrival: EMS Limitations: no limitations History of Present Illness HPI narrative: This is a 57 years old man presented to the ED with chest pain since yesterday continuously, he come from the detention a he has history of CVA in the past. He states the now feels better wants to go back to the detention MD complaint: chest pain Onset (ago): day(s) (1) Timing of current episode: constant Onset: during rest Pain location: substernal and left chest Pain radiation: none Quality: aching Related Data Home Medications Medication Instructions Recorded Confirmed atorvastatin 40 mg tablet 40 mg PO BEDTIME 02/28/22 03/28/22 baclofen 10 mg tablet 10 mg PO BID 02/28/22 03/28/22 buspirone 15 mg tablet 1 tab PO TID 02/28/22 03/28/22 gabapentin 400 mg capsule 400 mg TID 02/28/22 03/28/22 levetiracetam 500 mg tablet 500 mg PO BID 02/28/22 03/28/22 lorazepam 0.5 mg tablet (Ativan) 1 tab PO DAILY 02/28/22 03/28/22 lorazepam 1 mg tablet (Ativan) 1 tab PO BEDTIME 02/28/22 03/28/22 melatonin 5 mg capsule 2 cap PO BEDTIME 02/28/22 03/28/22 metoprolol tartrate 50 mg tablet 50 mg PO BID 02/28/22 03/28/22 mirtazapine 15 mg tablet 15 mg PO BEDTIME 02/28/22 03/28/22 olanzapine 15 mg tablet (Zyprexa) 1 tab PO BEDTIME 02/28/22 03/28/22 pantoprazole 40 mg tablet,delayed 40 mg PO DAILY@0630 02/28/22 03/28/22 release cetirizine 10 mg tablet 10 mg PO DAILY 03/01/22 03/28/22 docusate sodium 100 mg capsule 100 mg PO BID 03/01/22 03/28/22 finasteride 5 mg tablet 5 mg PO DAILY 03/01/22 03/28/22 furosemide 20 mg tablet 20 mg PO DAILY PRN fluid overload 03/01/22 03/28/22 haloperidol 2 mg tablet 1 tab PO TID 03/01/22 03/28/22 lorazepam 0.5 mg tablet (Ativan) 1 tab PO DAILY PRN Anxiety 03/01/22 03/28/22 midodrine 5 mg tablet 1 tab PO TIDAC 03/01/22 03/28/22 olanzapine 5 mg tablet (Zyprexa) 5 mg PO BID@0900,1500 03/01/22 03/28/22 rivaroxaban 20 mg tablet (Xarelto) 20 mg PO BEDTIME 03/01/22 03/28/22 acetaminophen 325 mg tablet 650 mg PO Q4H PRN headache/fever 03/28/22 03/28/22 albuterol sulfate 2.5 mg/3 mL 2.5 mg inhalation TID PRN 03/28/22 03/28/22 (0.083 %) solution for nebulization Shortness Of Breath azelastine 0.05 % eye drops 1 drp ophthalmic (eye) BID PRN 03/28/22 03/28/22 Allergy Symptoms calcium carbonate 430 mg calcium 430 mg PO TID PRN Indigestion 03/28/22 03/28/22 (1,000 mg) chewable tablet furosemide 20 mg tablet 20 mg PO DAILY 03/28/22 03/28/22 lamotrigine 100 mg tablet 100 mg PO BEDTIME 03/28/22 03/28/22 (Lamictal) lamotrigine 25 mg tablet (Lamictal) 25 mg PO BEDTIME 03/28/22 03/28/22 menthol 4 % topical gel (Biofreeze 1 appl topical BID 03/28/22 03/28/22 (menthol)) menthol 4 % topical gel (Biofreeze 1 appl topical Q2H PRN Pain (Scale 03/28/22 03/28/22 (menthol)) Score 1-3) nitroglycerin 0.4 mg sublingual 0.4 mg sublingual Q5M PRN Chest 03/28/22 03/28/22 tablet Pain polyvinyl alcohol 1.4 % eye drops 1 drp ophthalmic (eye) DAILY 03/28/22 03/28/22 pseudoephedrine-guaifenesin ER 60 1 tab PO BID PRN Congestion 03/28/22 03/28/22 mg-600 mg tablet,extend release 12hr (Mucus D) sertraline 100 mg tablet 100 mg PO DAILY 03/28/22 03/28/22 sertraline 50 mg tablet (Zoloft) 50 mg PO DAILY 03/28/22 03/28/22 tramadol 100 mg tablet 100 mg PO Q6H PRN Back Pain 03/28/22 03/28/22 Previous Rx's Medication Instructions Recorded cefuroxime axetil 250 mg tablet 250 mg PO BID 7 days #14 tabs 03/21/22 cefuroxime axetil 500 mg tablet 500 mg PO Q12H 5 days #10 tabs 05/31/22 Allergies Allergy/AdvReac Type Severity Reaction Status Date / Time No Known Allergies Allergy Verified 12/15/21 14:53 Review of Systems Constitutional: Constitutional: Reports no additional constitutional complaints Eyes: Eyes: Reports no additional eye complaints ENT: Reports system reviewed and no additional complaints, except as documented Cardiovascular: Cardiovascular: Reports no additional cardiovascular complaints Respiratory: Respiratory: Reports no additional respiratory complaints [facility] Past Medical History Medical History Afib Anxiety disorder CHF (congestive heart failure) Cognitive disorder COPD (chronic obstructive pulmonary disease) CVA (cerebrovascular accident) Traumatic brain injury Social History Social History Alcohol intake: former Patient Tobacco Use Status: Former Tobacco user Smoked in Last 30 Days: No Use of substances other than those prescribed or required for medical reasons: No Advance Directives: Yes Advance Directives on File: Yes Advance Directives Date on File: 11/11/21 Physical Exam Vital Signs: Vital Signs: Last Vital Signs Temp 98.7 F 07/04/22 15:39 Pulse 80 07/04/22 15:39 Resp 19 07/04/22 15:39 BP 116/84 07/04/22 15:39 Pulse Ox 97 07/04/22 15:39 O2 Del Method 07/04/22 15:39 BMI result Body Mass Index 23.7 Const: General: cooperative Nutritional Appearance: average body habitus Orientation/consciousness: patient oriented x3 Limitations: no limitations HEENT: Head: Yes normal to inspection Ears: hearing grossly normal bilaterally General nose exam: Normal external nose present Face and sinus: Yes normal facial exam Mouth: Normal oral and palatal mucosa present Throat: Yes posterior oropharynx normal Neck: Neck: Yes normal visual inspection and Yes full ROM Chest: Chest palpation & inspection: normal inspection of the chest Resp: Effort & Inspection: normal respiratory effort Auscultation: clear to auscultation bilaterally Cardio: Jugular venous distension: no JVD Rate: regular rate GI: Inspection: Yes normal to inspection Palpation (GI): Soft to palpation, not firm and nontender Auscultation: normal bowel sounds Skin: General skin exam: no rashes or lesions noted Neuro: General: patient oriented x3 Course Course Course Narrative: Presented with chest pain times 24 hour that now is resolved the, his EKG shows A.Fib we get the troponin reassessed Reevaluation(s) Reevaluation #1: feels better wants to go home Time: 16:05 Medical Decision Making Medical Decision Making [facility] Narrative: presented with chest pain X 1 Days tropi negative,similar presentation in the past OK to d/c Differential Diagnosis Differential Diagnoses: The differential diagnosis associated with the presentation includes NE/anxiety/costocondritis Admission/Observation Consideration of admission/observation: Escalation of care including admission/observation considered Lab Data [facility] Lab Attestation statement: I reviewed the patient's lab results. 07/04/22 14:25 07/04/22 14:25 Labs: Lab Results 07/04/22 07/04/22 07/04/22 Range/Units 11:30 14:25 14:25 WBC 11.5 H (4.8-10.8) X10*3/uL RBC 4.57 L (4.60-5.80) X10*6/uL Hgb 13.4 L (14.0-18.0) g/dl Hct 41.8 L (42.0-52.0) % MCV 91.5 (80.0-98.0) fL MCH 29.3 (27.0-33.0) pg MCHC 32.1 (31.0-36.0) g/dl RDW 14.3 (11.0-16.0) % Plt Count 250 (160-400) X10*3/uL MPV 9.8 (9.4-12.4) fL Immature Gran % (Auto) 1.0 H (0.0-0.4) % Neut % (Auto) 62.5 (45-73) % Lymph % (Auto) 27.5 (20-40) % [place] % (Auto) 7.7 (2-11) % Eos % (Auto) 0.7 (0-4) % Baso % (Auto) 0.6 (0-2) % Lymph # (Auto) 3.2 (1.2-4.9) X10*3/uL [place] # (Auto) 0.9 (0.1-1.2) X10*3/uL Eos # (Auto) 0.1 (0.0-0.4) X10*3/uL Baso # (Auto) 0.1 (0.0-0.2) X10*3/uL Abs Immat Gran (auto) 0.11 H (0.00-0.03) X10*3/uL Absolute Neuts (auto) 7.2 (2.0-8.3) x10*3/uL Absolute Nucleated RBC 0.000 (0.0-0.012) X10*3/uL Nucleated RBC % (auto) 0.0 (0.0-0.2) /100WBC PT 17.3 H (10.0-13.1) SEC INR 1.5 H (0.9-1.1) Sodium 140 (135-145) mmol/L Potassium 4.2 (3.3-5.1) mmol/L Chloride 105 (96-108) mmol/L Carbon Dioxide 25 (22-29) mmol/L Anion Gap 14 (12-20) BUN 16 (9-16) mg/dL Creatinine 0.85 (0.5-1.4) mg/dL Estim Creat Clear Calc 114.1 Estimated GFR > 60 Random Glucose 125 H (60-115) mg/dL Calcium 9.3 (8.4-10.2) mg/dL Total Bilirubin 0.6 (0.0-1.0) mg/dL AST 22 (5-37) U/L ALT 38 (0-40) U/L Alkaline Phosphatase 129 H (39-117) U/L Troponin I High Sens (<3.5-35.0) ng/L Total Protein 6.7 (6.5-8.0) g/dL Albumin 4.2 (3.5-5.0) g/dL 07/04/22 Range/Units 14:25 WBC (4.8-10.8) X10*3/uL RBC (4.60-5.80) X10*6/uL Hgb (14.0-18.0) g/dl Hct (42.0-52.0) % MCV (80.0-98.0) fL MCH (27.0-33.0) pg MCHC (31.0-36.0) g/dl RDW (11.0-16.0) % Plt Count (160-400) X10*3/uL MPV (9.4-12.4) fL Immature Gran % (Auto) (0.0-0.4) % Neut % (Auto) (45-73) % Lymph % (Auto) (20-40) % [place] % (Auto) (2-11) % Eos % (Auto) (0-4) % Baso % (Auto) (0-2) % Lymph # (Auto) (1.2-4.9) X10*3/uL [place] # (Auto) (0.1-1.2) X10*3/uL Eos # (Auto) (0.0-0.4) X10*3/uL Baso # (Auto) (0.0-0.2) X10*3/uL Abs Immat Gran (auto) (0.00-0.03) X10*3/uL Absolute Neuts (auto) (2.0-8.3) x10*3/uL Absolute Nucleated RBC (0.0-0.012) X10*3/uL Nucleated RBC % (auto) (0.0-0.2) /100WBC PT (10.0-13.1) SEC INR (0.9-1.1) Sodium (135-145) mmol/L Potassium (3.3-5.1) mmol/L Chloride (96-108) mmol/L Carbon Dioxide (22-29) mmol/L Anion Gap (12-20) BUN (9-16) mg/dL Creatinine (0.5-1.4) mg/dL Estim Creat Clear Calc Estimated GFR Random Glucose (60-115) mg/dL Calcium (8.4-10.2) mg/dL Total Bilirubin (0.0-1.0) mg/dL AST (5-37) U/L ALT (0-40) U/L Alkaline Phosphatase (39-117) U/L Troponin I High Sens < 3.5 (<3.5-35.0) ng/L Total Protein (6.5-8.0) g/dL Albumin (3.5-5.0) g/dL Independent Interpretation I performed an independent interpretation of an: EKG Interpretation: A.Fib 97 no ischemia External Record Review External record reviewed: Inpatient record Discharge Plan Discharge Clinical Impression: Chest pain Patient Disposition: Home, Self-Care Instructions: Chest Pain (DC) Additional Instructions: follow up with Primary Care Doctor return if worse Prescriptions: No Action lorazepam [Ativan] 0.5 mg tablet 1 tab PO DAILY olanzapine [Zyprexa] 15 mg tablet 1 tab PO BEDTIME lorazepam [Ativan] 1 mg tablet 1 tab PO BEDTIME buspirone 15 mg tablet 1 tab PO TID melatonin 5 mg capsule 2 cap PO BEDTIME mirtazapine 15 mg Tablet 15 mg PO BEDTIME atorvastatin 40 mg Tablet 40 mg PO BEDTIME gabapentin 400 mg Capsule 400 mg TID baclofen 10 mg Tablet 10 mg PO BID levetiracetam 500 mg Tablet 500 mg PO BID pantoprazole 40 mg Tablet,Delayed Release (Dr/Ec) 40 mg PO DAILY@0630 metoprolol tartrate 50 mg Tablet 50 mg PO BID cetirizine 10 mg Tablet 10 mg PO DAILY olanzapine [Zyprexa] 5 mg tablet 5 mg PO BID@0900,1500 docusate sodium 100 mg Capsule 100 mg PO BID furosemide 20 mg Tablet 20 mg PO DAILY PRN (Reason: fluid overload) haloperidol 2 mg tablet 1 tab PO TID finasteride 5 mg Tablet 5 mg PO DAILY lorazepam [Ativan] 0.5 mg tablet 1 tab PO DAILY PRN (Reason: Anxiety) Xarelto 20 mg Tablet 20 mg PO BEDTIME Rx Instructions: must administer with evening meal midodrine 5 mg tablet 1 tab PO TIDAC azelastine 0.05 % Drops 1 drp OPHTHALMIC (EYE) BID PRN (Reason: Allergy Symptoms) acetaminophen 325 mg Tablet 650 mg PO Q4H PRN (Reason: headache/fever) albuterol sulfate 2.5 mg /3 mL (0.083 %) Solution For Nebulization 2.5 mg INHALATION TID PRN (Reason: Shortness Of Breath) polyvinyl alcohol 1.4 % Drops 1 drp OPHTHALMIC (EYE) DAILY sertraline 100 mg Tablet 100 mg PO DAILY Rx Instructions: tdd = 150 mg pseudoephedrine-guaifenesin [Mucus D] 60-600 mg Tablet Extended Release 12 Hr 1 tab PO BID PRN (Reason: Congestion) lamotrigine [Lamictal] 25 mg Tablet 25 mg PO BEDTIME Rx Instructions: tdd = 125 mg nitroglycerin 0.4 mg Tablet, Sublingual 0.4 mg SUBLINGUAL Q5M PRN (Reason: Chest Pain) Rx Instructions: do not exceed 3 doses per episode sertraline [Zoloft] 50 mg tablet 50 mg PO DAILY Rx Instructions: tdd = 150 mg Biofreeze (menthol) 4 % Gel 1 appl TOPICAL BID Rx Instructions: apply a thin layer mid to lower back Biofreeze (menthol) 4 % Gel 1 appl TOPICAL Q2H PRN (Reason: Pain (Scale Score 1-3)) calcium carbonate 430 mg calcium (1,000 mg) Tablet,Chewable 430 mg PO TID PRN (Reason: Indigestion) tramadol 100 mg Tablet 100 mg PO Q6H PRN (Reason: Back Pain) furosemide 20 mg Tablet 20 mg PO DAILY lamotrigine [Lamictal] 100 mg Tablet 100 mg PO BEDTIME cefuroxime axetil 500 mg tablet 500 mg PO Q12H 5 Days Qty: 10 0RF cefuroxime axetil 250 mg tablet 250 mg PO BID 7 Days Qty: 14 0RF Rx Instructions: 03/23/22 to 03/30/22 Referrals: Physician,Unknown J [Primary Care Provider] - 2 days
--- NOTE | 2022-07-04 15:07 | ECG_ITS ---
Test Reason : CHEST PAIN Blood Pressure : / mmHG Vent. Rate : 097 BPM Atrial Rate : 000 BPM P-R Int : 000 ms QRS Dur : 080 ms QT Int : 344 ms P-R-T Axes : 000 004 044 degrees QTc Int : 436 ms Atrial fibrillation Low voltage QRS Cannot rule out Anterior infarct (cited on or before 07-JUN-2022) Abnormal ECG When compared with ECG of 07-JUN-2022 06:26, No significant change was found Referred By: Gordo Rodriguez Electronically Signed By:JOSEY MESSER
[2022-07-04 15:20] LABS: Troponin-I High Sensitivity < 3.5 ng/L (<3.5-35.0)
[2022-07-04 15:23] VITALS: BP 100/69; PULSE 87; RESP 18; O2SAT 95
--- NOTE | 2022-07-04 15:26 | PC.NURSE ---
levophed accidently ordered by Dr. Rodriguez, wrong pt. Will document against
[2022-07-04 15:32] LABS: Influenza A PCR NEGATIVE (Negative); Influenza B PCR NEGATIVE (Negative); Resp Syncy Virus RNA Qual PCR NEGATIVE (Negative); SARS COV2 PCR INHOUSE NEGATIVE (Negative)
[2022-07-04 15:35] LABS: INTERNATIONAL NORM RATIO 1.5 (0.9-1.1); Prothrombin Time 17.3 SEC (10.0-13.1)
[2022-07-04 15:39] VITALS: BP 116/84; PULSE 80; RESP 19; TEMP 37.1; O2SAT 97
--- NOTE | 2022-07-04 15:43 | PC.NURSE ---
pt currently sleeping on stretcher at this time. Received phone call from pts in-[facility] living nurse, updated on current plan of care
== END 2022-07-04 17:58 | disposition home or self-care (01) ==
PROVIDERS: Emergency Provider Emergency Medicine
DX: R07.9 Chest pain, unspecified (principal); Z20.822 Contact with and (suspected) exposure to COVID-19; Z20.828 Contact with and (suspected) exposure to other viral communicable diseases; I48.91 Unspecified atrial fibrillation; Z79.02 Long term (current) use of antithrombotics/antiplatelets; Z79.899 Other long term (current) drug therapy; Z79.01 Long term (current) use of anticoagulants; Z86.73 Personal history of transient ischemic attack (TIA), and cerebral infarction without residual deficits; Z87.891 Personal history of nicotine dependence
CPT/HCPCS: 0241U; 36415; 71046; 80053; 84484; 85025; 85610; 93005; 99285

== ENCOUNTER 2022-07-11 13:31 | Emergency (ER) | payer MEDICAID, SELFPAY ==
--- NOTE | ~2022-07-11 | XR_ITS ---
EXAMINATION: XR chest 1V CLINICAL INFORMATION: Chest pain COMPARISON: June 2022 TECHNIQUE: XR chest 1V Tubes and lines: None Lungs and pleura: Redemonstration of diffuse interstitial opacification possibly diffuse interstitial pneumonitis versus edema. There is no dense lobar consolidation. Linear density suggesting subsegmental atelectasis left middle lung zone. Heart and mediastinum: Enlarged cardiac silhouette and widened mediastinum exaggerated by AP technique, this has not changed.. Bones/soft tissue: Skeletal structures included are normal for patient's age. XR/XR chest 1V IMPRESSION: * Redemonstration of diffuse interstitial opacification possibly diffuse interstitial pneumonitis versus edema. * Stable Enlarged cardiac silhouette and widened mediastinum exaggerated by AP technique. * Subsegmental atelectasis left middle lung zone.
--- NOTE | 2022-07-11 13:34 | ECG_ITS ---
Test Reason : CHEST PAIN Blood Pressure : / mmHG Vent. Rate : 073 BPM Atrial Rate : 000 BPM P-R Int : 000 ms QRS Dur : 080 ms QT Int : 384 ms P-R-T Axes : 000 002 021 degrees QTc Int : 423 ms Atrial fibrillation Cannot rule out Anterior infarct , age undetermined Abnormal ECG When compared with ECG of 04-JUL-2022 15:17, No significant change was found Referred By: Camila Campos Electronically Signed By:Jaylan Rouse
[2022-07-11 13:39] VITALS: BP 137/102; PULSE 68; O2SAT 96
[2022-07-11 13:44] VITALS: BMI 33.3
--- NOTE | 2022-07-11 13:44 | ED.CHESTPAIN ---
HPI - Chest Pain General Chief Complaint: Chest Pain Stated Complaint: CP Time Seen by Provider: 07/11/22 13:34 Source: patient and EMS Mode of arrival: EMS History of Present Illness HPI narrative: 57-year-old male with past medical history of COPD on supplemental O2, CHF, AFib on Xarelto, CVA with left-sided hemiparesis presenting to ED via EMS from longterm complaining of intermittent chest pain since yesterday. Also reports nausea, and abdominal discomfort. States it is his AFib. Reports compliance with home medications. Denies fever, chills, cough, vomiting/diarrhea, pedal edema, SOB MD complaint: chest discomfort Related Data Home Medications Medication Instructions Recorded Confirmed atorvastatin 40 mg tablet 40 mg PO BEDTIME 02/28/22 03/28/22 baclofen 10 mg tablet 10 mg PO BID 02/28/22 03/28/22 buspirone 15 mg tablet 1 tab PO TID 02/28/22 03/28/22 gabapentin 400 mg capsule 400 mg TID 02/28/22 03/28/22 levetiracetam 500 mg tablet 500 mg PO BID 02/28/22 03/28/22 lorazepam 0.5 mg tablet (Ativan) 1 tab PO DAILY 02/28/22 03/28/22 lorazepam 1 mg tablet (Ativan) 1 tab PO BEDTIME 02/28/22 03/28/22 melatonin 5 mg capsule 2 cap PO BEDTIME 02/28/22 03/28/22 metoprolol tartrate 50 mg tablet 50 mg PO BID 02/28/22 03/28/22 mirtazapine 15 mg tablet 15 mg PO BEDTIME 02/28/22 03/28/22 olanzapine 15 mg tablet (Zyprexa) 1 tab PO BEDTIME 02/28/22 03/28/22 pantoprazole 40 mg tablet,delayed 40 mg PO DAILY@0630 02/28/22 03/28/22 release cetirizine 10 mg tablet 10 mg PO DAILY 03/01/22 03/28/22 docusate sodium 100 mg capsule 100 mg PO BID 03/01/22 03/28/22 finasteride 5 mg tablet 5 mg PO DAILY 03/01/22 03/28/22 furosemide 20 mg tablet 20 mg PO DAILY PRN fluid overload 03/01/22 03/28/22 haloperidol 2 mg tablet 1 tab PO TID 03/01/22 03/28/22 lorazepam 0.5 mg tablet (Ativan) 1 tab PO DAILY PRN Anxiety 03/01/22 03/28/22 midodrine 5 mg tablet 1 tab PO TIDAC 03/01/22 03/28/22 olanzapine 5 mg tablet (Zyprexa) 5 mg PO BID@0900,1500 03/01/22 03/28/22 rivaroxaban 20 mg tablet (Xarelto) 20 mg PO BEDTIME 03/01/22 03/28/22 acetaminophen 325 mg tablet 650 mg PO Q4H PRN headache/fever 03/28/22 03/28/22 albuterol sulfate 2.5 mg/3 mL 2.5 mg inhalation TID PRN 03/28/22 03/28/22 (0.083 %) solution for nebulization Shortness Of Breath azelastine 0.05 % eye drops 1 drp ophthalmic (eye) BID PRN 03/28/22 03/28/22 Allergy Symptoms calcium carbonate 430 mg calcium 430 mg PO TID PRN Indigestion 03/28/22 03/28/22 (1,000 mg) chewable tablet furosemide 20 mg tablet 20 mg PO DAILY 03/28/22 03/28/22 lamotrigine 100 mg tablet 100 mg PO BEDTIME 03/28/22 03/28/22 (Lamictal) lamotrigine 25 mg tablet (Lamictal) 25 mg PO BEDTIME 03/28/22 03/28/22 menthol 4 % topical gel (Biofreeze 1 appl topical BID 03/28/22 03/28/22 (menthol)) menthol 4 % topical gel (Biofreeze 1 appl topical Q2H PRN Pain (Scale 03/28/22 03/28/22 (menthol)) Score 1-3) nitroglycerin 0.4 mg sublingual 0.4 mg sublingual Q5M PRN Chest 03/28/22 03/28/22 tablet Pain polyvinyl alcohol 1.4 % eye drops 1 drp ophthalmic (eye) DAILY 03/28/22 03/28/22 pseudoephedrine-guaifenesin ER 60 1 tab PO BID PRN Congestion 03/28/22 03/28/22 mg-600 mg tablet,extend release 12hr (Mucus D) sertraline 100 mg tablet 100 mg PO DAILY 03/28/22 03/28/22 sertraline 50 mg tablet (Zoloft) 50 mg PO DAILY 03/28/22 03/28/22 tramadol 100 mg tablet 100 mg PO Q6H PRN Back Pain 03/28/22 03/28/22 Previous Rx's Medication Instructions Recorded cefuroxime axetil 250 mg tablet 250 mg PO BID 7 days #14 tabs 03/21/22 cefuroxime axetil 500 mg tablet 500 mg PO Q12H 5 days #10 tabs 05/31/22 Allergies Allergy/AdvReac Type Severity Reaction Status Date / Time No Known Allergies Allergy Verified 12/15/21 14:53 Review of Systems Review of Systems: Constitutional: No Fever, No Chills, No Fatigue, No Malaise ENT/Mouth: No Ear Pain, No Nasal Congestion, No sore throat, No Rhinorrhea, No Swallowing Difficulty Eyes: No Eye Pain, No Swelling, No Redness, No Vision Changes Cardiovascular: + Chest Pain, No SOB, No Dyspnea on Exertion, No Edema, No Palpitations Respiratory: No Cough, No Sputum,No Dyspnea Gastrointestinal: + Nausea, No Vomiting, No Diarrhea, No Constipation, + Abdominal pain Genitourinary: No irregular bleeding, No Dysuria, No Urinary Frequency, No Hematuria, No Flank Pain Musculoskeletal: No joint pain, No Myalgias, No Joint Swelling Skin: No Skin Lesions, No rash Neuro: No Weakness, No Numbness, No Dizziness, No Headache Yes all other systems are reviewed and are negative Constitutional: Constitutional: Reports as per [facility] Past Medical History Attestation statement: The following information was validated with the patient. Medical History Afib Anxiety disorder CHF (congestive heart failure) Cognitive disorder COPD (chronic obstructive pulmonary disease) CVA (cerebrovascular accident) Traumatic brain injury Social History Social History Alcohol intake: former Patient Tobacco Use Status: Former Tobacco user Advance Directives: Yes Advance Directives on File: Yes Advance Directives Date on File: 11/11/21 Physical Exam Vital Signs: Vital Signs: Last Vital Signs Temp 97.7 F 07/11/22 13:46 Pulse 73 07/11/22 13:46 Resp 20 07/11/22 15:54 BP 103/74 07/11/22 15:54 Pulse Ox 94 07/11/22 13:46 O2 Del Method 07/11/22 13:46 Oxygen Flow Rate 2 07/11/22 13:44 BMI result Body Mass Index 33.3 Const: General: cooperative, no acute distress, alert and awake Orientation/consciousness: patient oriented x3 Limitations: no limitations HEENT: Head: Yes normal to inspection and Yes atraumatic Ears: hearing grossly normal bilaterally General nose exam: Normal external nose present Face and sinus: Yes normal facial exam Eyes: General: appearance normal, both eyes and all related structures EOM: EOMs intact bilaterally Neck: Neck: Yes normal visual inspection and Yes no meningeal signs Resp: Effort & Inspection: normal respiratory effort and no respiratory distress Auscultation: clear to auscultation bilaterally, no crackles, no rhonchi and no wheezes Cardio: Rate: regular rate Rhythm: abnormal rhythm Heart sounds: S1 normal heart sound present and S2 normal heart sound present GI: Inspection: Yes normal to inspection Palpation (GI): Soft to palpation, nontender, no guarding and not rigid Skin: Rashes: no rashes Wounds: no wounds Neuro: General: patient oriented x3, tone normal and no meningeal signs Gait exam (Neuro): Normal gait present Extrem: General: Yes normal to inspection, Yes no pedal edema and Yes no calf tenderness Course Course Course Narrative: -1538--no leukocytosis. Troponin negative. Labs otherwise reassuring. -COVID-19 and influenza negative XR chest 1V IMPRESSION: *? Redemonstration of diffuse interstitial opacification possibly diffuse interstitial pneumonitis versus edema. ? *? Stable Enlarged cardiac silhouette and widened mediastinum exaggerated by AP technique. ? *? Subsegmental atelectasis left middle lung zone. >> findings unchanged from prior x-rays, no clinical evidence of fluid overload on exam. Patient requesting to be discharged will like to sign out AMA. -BP chronically soft, improving Results discussed with patient including worrisome signs and symptoms and strict return precautions, and when to return to the emergency department. They verbalized understanding and feel safe for discharge at this time. Medical Decision Making Medical Decision Making MDM Narrative: 57-year-old male with past medical history of COPD on supplemental O2, CHF, AFib on Xarelto, CVA with left-sided hemiparesis presenting to ED via EMS from longterm complaining of intermittent chest pain since yesterday. Also reports nausea, and abdominal discomfort. On exam BP soft, NAD, nontoxic-appearing, agitated, yelling at staff, lungs CTA, abdomen soft/nontender, no pedal edema. EKG showing AFib rate controlled. Rule out ACS. Symptoms atypical for PE/pneumonia or CHF. Plan: EKG, labs, CXR, reassess Differential Diagnosis Differential Diagnoses: The differential diagnosis associated with the presentation includes As above Lab Data MDM Lab Attestation statement: I reviewed the patient's lab results. 07/11/22 14:29 07/11/22 14: Labs: Lab Results 07/11/22 07/11/22 07/11/22 Range/Units 14: 14: 14:29 WBC 10.6 (4.8-10.8) X10*3/uL RBC 4.83 (4.60-5.80) X10*6/uL Hgb 14.2 (14.0-18.0) g/dl Hct 44.4 (42.0-52.0) % MCV 91.9 (80.0-98.0) fL MCH 29.4 (27.0-33.0) pg MCHC 32.0 (31.0-36.0) g/dl RDW 14.2 (11.0-16.0) % Plt Count 274 (160-400) X10*3/uL MPV 9.6 (9.4-12.4) fL Immature Gran % (Auto) 2.1 H (0.0-0.4) % Neut % (Auto) 57.1 (45-73) % Lymph % (Auto) 34.4 (20-40) % [place] % (Auto) 4.6 (2-11) % Eos % (Auto) 1.1 (0-4) % Baso % (Auto) 0.7 (0-2) % Lymph # (Auto) 3.7 (1.2-4.9) X10*3/uL [place] # (Auto) 0.5 (0.1-1.2) X10*3/uL Eos # (Auto) 0.1 (0.0-0.4) X10*3/uL Baso # (Auto) 0.1 (0.0-0.2) X10*3/uL Abs Immat Gran (auto) 0.22 H (0.00-0.03) X10*3/uL Absolute Neuts (auto) 6.1 (2.0-8.3) x10*3/uL Absolute Nucleated RBC 0.000 (0.0-0.012) X10*3/uL Nucleated RBC % (auto) 0.0 (0.0-0.2) /100WBC Sodium (135-145) mmol/L Potassium (3.3-5.1) mmol/L Chloride (96-108) mmol/L Carbon Dioxide (22-29) mmol/L Anion Gap (12-20) BUN (9-16) mg/dL Creatinine (0.5-1.4) mg/dL Estim Creat Clear Calc Estimated GFR Random Glucose (60-115) mg/dL Calcium (8.4-10.2) mg/dL Magnesium (1.6-2.6) mg/dL Total Bilirubin (0.0-1.0) mg/dL Direct Bilirubin (0.0-0.5) mg/dL AST (5-37) U/L ALT (0-40) U/L Alkaline Phosphatase (39-117) U/L Troponin I High Sens (<3.5-35.0) ng/L B-Natriuretic Peptide (<100) pg/mL Total Protein (6.5-8.0) g/dL Albumin (3.5-5.0) g/dL COVID-19 ([facility]IA[facility]) Negative (Negative) COVID-19 Clin Com See Note Influenza Type A ([facility]ON[facility]) Negative (Negative) Influenza Type B ([facility]ONITA) Negative (Negative) Influenza A & B Note See Note 07/11/22 07/11/22 07/11/22 Range/Units 14:29 14:29 14:29 WBC (4.8-10.8) X10*3/uL RBC (4.60-5.80) X10*6/uL Hgb (14.0-18.0) g/dl Hct (42.0-52.0) % MCV (80.0-98.0) fL MCH (27.0-33.0) pg MCHC (31.0-36.0) g/dl RDW (11.0-16.0) % Plt Count (160-400) X10*3/uL MPV (9.4-12.4) fL Immature Gran % (Auto) (0.0-0.4) % Neut % (Auto) (45-73) % Lymph % (Auto) (20-40) % [place] % (Auto) (2-11) % Eos % (Auto) (0-4) % Baso % (Auto) (0-2) % Lymph # (Auto) (1.2-4.9) X10*3/uL [place] # (Auto) (0.1-1.2) X10*3/uL Eos # (Auto) (0.0-0.4) X10*3/uL Baso # (Auto) (0.0-0.2) X10*3/uL Abs Immat Gran (auto) (0.00-0.03) X10*3/uL Absolute Neuts (auto) (2.0-8.3) x10*3/uL Absolute Nucleated RBC (0.0-0.012) X10*3/uL Nucleated RBC % (auto) (0.0-0.2) /100WBC Sodium 142 (135-145) mmol/L Potassium 4.5 (3.3-5.1) mmol/L Chloride 104 (96-108) mmol/L Carbon Dioxide 28 (22-29) mmol/L Anion Gap 15 (12-20) BUN 10 (9-16) mg/dL Creatinine 0.77 (0.5-1.4) mg/dL Estim Creat Clear Calc 139.6 Estimated GFR > 60 Random Glucose 107 (60-115) mg/dL Calcium 9.5 (8.4-10.2) mg/dL Magnesium 2.3 (1.6-2.6) mg/dL Total Bilirubin 0.5 (0.0-1.0) mg/dL Direct Bilirubin 0.2 (0.0-0.5) mg/dL AST 20 (5-37) U/L ALT 31 (0-40) U/L Alkaline Phosphatase 111 (39-117) U/L Troponin I High Sens < 3.5 (<3.5-35.0) ng/L B-Natriuretic Peptide 19 (<100) pg/mL Total Protein 6.4 L (6.5-8.0) g/dL Albumin 4.2 (3.5-5.0) g/dL COVID-19 ([facility]NA) (Negative) COVID-19 Clin Com Influenza Type A ([facility]) (Negative) Influenza Type B ([facility]ON[facility]) (Negative) Influenza A & B Note Independent Interpretation I performed an independent interpretation of an: EKG Interpretation: EKG AFib at a rate of 73. QRS 80. QTC 423. No STEMI Radiology Impression Discussion of test interpretation with radiology: I have reviewed the radiologist's reading. External Record Review External record reviewed: Outpatient record Prior ED record Chronic Conditions Patient?s care impacted by: Other Social Determinants Patient?s care significantly limited by Social Determinants of Health including: Inadequate housing, Problems related to primary support group and Other Social Determinant of Health Discharge Plan Discharge Clinical Impression: Atypical chest pain Patient Disposition: Xfer to Respite Facility Transfer Details: halfway Instructions: Chest Pain (DC) Additional Instructions: Your blood work is reassuring. Her x-ray is unchanged. Continue home medications. Follow up with her doctor. If symptoms persist or worsen return to the emergency department Prescriptions: No Action lorazepam [Ativan] 0.5 mg tablet 1 tab PO DAILY olanzapine [Zyprexa] 15 mg tablet 1 tab PO BEDTIME lorazepam [Ativan] 1 mg tablet 1 tab PO BEDTIME buspirone 15 mg tablet 1 tab PO TID melatonin 5 mg capsule 2 cap PO BEDTIME mirtazapine 15 mg Tablet 15 mg PO BEDTIME atorvastatin 40 mg Tablet 40 mg PO BEDTIME gabapentin 400 mg Capsule 400 mg TID baclofen 10 mg Tablet 10 mg PO BID levetiracetam 500 mg Tablet 500 mg PO BID pantoprazole 40 mg Tablet,Delayed Release (Dr/Ec) 40 mg PO DAILY@0630 metoprolol tartrate 50 mg Tablet 50 mg PO BID cetirizine 10 mg Tablet 10 mg PO DAILY olanzapine [Zyprexa] 5 mg tablet 5 mg PO BID@0900,1500 docusate sodium 100 mg Capsule 100 mg PO BID furosemide 20 mg Tablet 20 mg PO DAILY PRN (Reason: fluid overload) haloperidol 2 mg tablet 1 tab PO TID finasteride 5 mg Tablet 5 mg PO DAILY lorazepam [Ativan] 0.5 mg tablet 1 tab PO DAILY PRN (Reason: Anxiety) Xarelto 20 mg Tablet 20 mg PO BEDTIME Rx Instructions: must administer with evening meal midodrine 5 mg tablet 1 tab PO TIDAC azelastine 0.05 % Drops 1 drp OPHTHALMIC (EYE) BID PRN (Reason: Allergy Symptoms) acetaminophen 325 mg Tablet 650 mg PO Q4H PRN (Reason: headache/fever) albuterol sulfate 2.5 mg /3 mL (0.083 %) Solution For Nebulization 2.5 mg INHALATION TID PRN (Reason: Shortness Of Breath) polyvinyl alcohol 1.4 % Drops 1 drp OPHTHALMIC (EYE) DAILY sertraline 100 mg Tablet 100 mg PO DAILY Rx Instructions: tdd = 150 mg pseudoephedrine-guaifenesin [Mucus D] 60-600 mg Tablet Extended Release 12 Hr 1 tab PO BID PRN (Reason: Congestion) lamotrigine [Lamictal] 25 mg Tablet 25 mg PO BEDTIME Rx Instructions: tdd = 125 mg nitroglycerin 0.4 mg Tablet, Sublingual 0.4 mg SUBLINGUAL Q5M PRN (Reason: Chest Pain) Rx Instructions: do not exceed 3 doses per episode sertraline [Zoloft] 50 mg tablet 50 mg PO DAILY Rx Instructions: tdd = 150 mg Biofreeze (menthol) 4 % Gel 1 appl TOPICAL BID Rx Instructions: apply a thin layer mid to lower back Biofreeze (menthol) 4 % Gel 1 appl TOPICAL Q2H PRN (Reason: Pain (Scale Score 1-3)) calcium carbonate 430 mg calcium (1,000 mg) Tablet,Chewable 430 mg PO TID PRN (Reason: Indigestion) tramadol 100 mg Tablet 100 mg PO Q6H PRN (Reason: Back Pain) furosemide 20 mg Tablet 20 mg PO DAILY lamotrigine [Lamictal] 100 mg Tablet 100 mg PO BEDTIME cefuroxime axetil 500 mg tablet 500 mg PO Q12H 5 Days Qty: 10 0RF cefuroxime axetil 250 mg tablet 250 mg PO BID 7 Days Qty: 14 0RF Rx Instructions: 03/23/22 to 03/30/22 Referrals: Physician,Unknown J [Primary Care Provider] - 2 days
[2022-07-11 13:46] VITALS: BP 92/73; PULSE 73; RESP 14; TEMP 36.5; O2SAT 94
--- NOTE | 2022-07-11 13:56 | MHC.EDTECH ---
EKG completed and signed by
[2022-07-11 14:34] LABS: MANUAL DIFF FLAG NO
[2022-07-11 14:39] LABS: Basophils Absolute Auto 0.1 X10*3/uL (0.0-0.2); Basophils Percent Auto 0.7 % (0-2); Eosinophils Absolute Auto 0.1 X10*3/uL (0.0-0.4); Eosinophils Percent Auto 1.1 % (0-4); Hematocrit 44.4 % (42.0-52.0); Hemoglobin 14.2 g/dl (14.0-18.0); Imm Gran Abs Auto 0.22 X10*3/uL (0.00-0.03); Imm Gran Pct Auto 2.1 % (0.0-0.4); Lymphocytes Absolute Auto 3.7 X10*3/uL (1.2-4.9); Lymphocytes Percent Auto 34.4 % (20-40); Mean Corpuscular Hemoglobin 29.4 pg (27.0-33.0); Mean Corpuscular Volume 91.9 fL (80.0-98.0); Mean Platelet Volume 9.6 fL (9.4-12.4); Monocytes Absolute Auto 0.5 X10*3/uL (0.1-1.2); Monocytes Percent Auto 4.6 % (2-11); Neutrophils Absolute Auto 6.1 x10*3/uL (2.0-8.3); Neutrophils Percent Auto 57.1 % (45-73); Platelet Count 274 X10*3/uL (160-400); Red Blood Count 4.83 X10*6/uL (4.60-5.80); Red Cell Distribution Width 14.2 % (11.0-16.0); White Blood Count 10.6 X10*3/uL (4.8-10.8)
[2022-07-11 14:49] LABS: COVID-19 Test Negative (Negative); IDNOW Serial# 16C4AD1C
[2022-07-11 14:52] LABS: IDNOW Serial# BCCEAD1C; Influenza A Negative (Negative); Influenza B2 Negative (Negative)
[2022-07-11 15:01] LABS: Alanine Aminotransferase 31 U/L (0-40); Albumin Level 4.2 g/dL (3.5-5.0); Alkaline Phosphatase 111 U/L (39-117); Anion Gap 15 (12-20); Aspartate Amino Transferase 20 U/L (5-37); Bilirubin Direct 0.2 mg/dL (0.0-0.5); Bilirubin Total 0.5 mg/dL (0.0-1.0); Blood Urea Nitrogen 10 mg/dL (9-16); Calcium 9.5 mg/dL (8.4-10.2); Carbon Dioxide 28 mmol/L (22-29); Chloride 104 mmol/L (96-108); Creatinine Clr Calc Pharmacy 139.6; Estimated Glomerular Filt Rate > 60; Glucose Random 107 mg/dL (60-115); Magnesium 2.3 mg/dL (1.6-2.6); Potassium 4.5 mmol/L (3.3-5.1); Sodium 142 mmol/L (135-145); Total Protein 6.4 g/dL (6.5-8.0)
[2022-07-11 15:05] LABS: B Type Natriuretic Peptide 19 pg/mL (<100)
[2022-07-11 15:07] LABS: Troponin-I High Sensitivity < 3.5 ng/L (<3.5-35.0)
[2022-07-11 15:54] VITALS: BP 103/74; RESP 20
[2022-07-11] MEDS: LORazepam 0.5 MG TABLET PO (16:22)
== END 2022-07-11 18:29 ==
PROVIDERS: Physician Assistant; Emergency Provider Internal Medicine
DX: R07.89 Other chest pain (principal); I48.91 Unspecified atrial fibrillation; J44.9 Chronic obstructive pulmonary disease, unspecified; F06.30 Mood disorder due to known physiological condition, unspecified; Z87.820 Personal history of traumatic brain injury; Z87.891 Personal history of nicotine dependence; Z99.81 Dependence on supplemental oxygen; Z79.01 Long term (current) use of anticoagulants; Z79.02 Long term (current) use of antithrombotics/antiplatelets; Z79.899 Other long term (current) drug therapy
CPT/HCPCS: 36415; 71045; 80048; 80076; 83735; 83880; 84484; 85025; 87502; 87635; 93005; 99283; 99284

== ENCOUNTER 2022-07-16 20:30 | Inpatient (IN) | payer OTHER, SELFPAY ==
--- NOTE | ~2022-07-16 | XR_ITS ---
EXAMINATION: XR CHEST CLINICAL INFORMATION: Questionable pneumonia COMPARISON: 07/11/2022 and 07/04/2022 TECHNIQUE: AP upright portable chest radiograph. view of the chest was obtained. FINDINGS: There is low lung volume bilaterally with cardiomegaly and mildly increased interstitial markings. There is pleural thickening seen bilaterally XR/XR chest 1V IMPRESSION: Cardiomegaly and increased interstitial markings. Pleural thickening. No evidence of pneumonia.
--- NOTE | ~2022-07-16 | CT_ITS ---
EXAMINATION: CT CHEST, ABDOMEN AND PELVIS WITHOUT CONTRAST. CLINICAL INFORMATION: sepsis, firm abdomen . COMPARISON: 03/21/2022 CT scan. TECHNIQUE: Multidetector volumetric imaging was performed from the thoracic inlet through the pubic symphysis without intravenous contrast. Sagittal and coronal reformatted images were obtained on the technologist workstation. This CT examination was performed using dose optimization techniques as appropriate, variously including the following: *Automated exposure control *Adjustment of mA and/or kV according to patient size (this includes techniques or standardized protocols for targeted exams where dose is matched to indication/reason for exam; i.e. extremities or head) *Use of iterative reconstruction technique DLP: 2134 mGy-cm FINDINGS: CHEST: Lungs: Bibasilar dependent markings more likely due to atelectasis. Bullous changes to the lung apices again noted. Central airways grossly unremarkable do not appreciate any dense consolidation Mediastinum: Prominent mediastinal lipomatosis. No bulky hilar or mediastinal adenopathy. Coronary Artery Calcification: Present Pericardium/Pleura: No significant effusion. No pleural mass or thickening. Chest Wall/Axilla: Unremarkable. ABDOMEN/PELVIS: Peritoneal Space:No significant free air or free fluid identified. Liver, Gallbladder, Biliary Tree: Mild diffuse fatty infiltration of the liver but no focal hepatic lesion nor biliary ductal dilatation. The gallbladder is unremarkable with no evidence of radiopaque gallstones, gallbladder wall thickening, or obvious pericholecystic inflammatory changes. Pancreas: Unremarkable. Spleen: Unremarkable. Adrenal Glands: Unremarkable. Kidneys and Ureters: Cortical scarring seen in the right kidney. Punctate nonobstructing intrarenal calculi seen bilaterally. No hydronephrosis or hydroureter. No perinephric stranding. Bladder: Unremarkable. Gastrointestinal Tract: The visualized colon and small bowel are unremarkable. Normal-appearing appendix in the right lower quadrant. Tiny calcifications and fat-containing density likely representing old torsed appendage epiploica in the left lower quadrant Abdominal Wall: No significant hernia is appreciated. Lymphovascular Structures: No lymphadenopathy. The aorta is unremarkable.. Pelvic Viscera: Unremarkable. Osseus Structures: Degenerative changes in the spine. CT/CT abdomen pelvis wo IV con IMPRESSION: Chronic appearing changes similar to the 03/21/2022 study. I do not appreciate any acute intra-abdominal process.
--- NOTE | 2022-07-16 20:36 | PC.NURSE ---
service net called and reported pt is refusing care, throwing stool, yelling at staff and making s1 statements. pt has a lopez cath with ams for 2 days,
[2022-07-16 20:50] VITALS: BP 114/88; BP 152/80; PULSE 79; PULSE 84; RESP 20; TEMP 36.7; O2SAT 95; BMI 26.9
--- NOTE | 2022-07-16 21:03 | ED_ITS ---
HPI - Altered Mental Status General Chief Complaint: Altered Mental Status Stated Complaint: FEELS WARM, AMS X'S 2 DAYS,F/C FROM SNF PER EMS Time Seen by Provider: 07/16/22 21:02 Source: patient, EMS and RN notes reviewed Mode of arrival: EMS Limitations: no limitations History of Present Illness HPI narrative: Patient 57 years old with history of COPD on supplemental oxygen CHF, AFib on Xarelto, CVA with left-sided hemiparesis with history of conversion disorder with seizures bipolar disorder, schizophrenia and anxiety came from [facility] for yelling at the staff making SI statement per staff patient more confused for last 2 days noticed subjective fever and burning sensation when urinating patient denies any SI or HI in [facility] temperature was 97.8 degrees blood pressure 152/80 POC 148 Related Data Home Medications Medication Instructions Recorded Confirmed atorvastatin 40 mg tablet 40 mg PO BEDTIME 02/28/22 03/28/22 baclofen 10 mg tablet 10 mg PO BID 02/28/22 03/28/22 buspirone 15 mg tablet 1 tab PO TID 02/28/22 03/28/22 gabapentin 400 mg capsule 400 mg TID 02/28/22 03/28/22 levetiracetam 500 mg tablet 500 mg PO BID 02/28/22 03/28/22 lorazepam 0.5 mg tablet (Ativan) 1 tab PO DAILY 02/28/22 03/28/22 lorazepam 1 mg tablet (Ativan) 1 tab PO BEDTIME 02/28/22 03/28/22 melatonin 5 mg capsule 2 cap PO BEDTIME 02/28/22 03/28/22 metoprolol tartrate 50 mg tablet 50 mg PO BID 02/28/22 03/28/22 mirtazapine 15 mg tablet 15 mg PO BEDTIME 02/28/22 03/28/22 olanzapine 15 mg tablet (Zyprexa) 1 tab PO BEDTIME 02/28/22 03/28/22 pantoprazole 40 mg tablet,delayed 40 mg PO DAILY@0630 02/28/22 03/28/22 release cetirizine 10 mg tablet 10 mg PO DAILY 03/01/22 03/28/22 docusate sodium 100 mg capsule 100 mg PO BID 03/01/22 03/28/22 finasteride 5 mg tablet 5 mg PO DAILY 03/01/22 03/28/22 furosemide 20 mg tablet 20 mg PO DAILY PRN fluid overload 03/01/22 03/28/22 haloperidol 2 mg tablet 1 tab PO TID 03/01/22 03/28/22 lorazepam 0.5 mg tablet (Ativan) 1 tab PO DAILY PRN Anxiety 03/01/22 03/28/22 midodrine 5 mg tablet 1 tab PO TIDAC 03/01/22 03/28/22 olanzapine 5 mg tablet (Zyprexa) 5 mg PO BID@0900,1500 03/01/22 03/28/22 rivaroxaban 20 mg tablet (Xarelto) 20 mg PO BEDTIME 03/01/22 03/28/22 acetaminophen 325 mg tablet 650 mg PO Q4H PRN headache/fever 03/28/22 03/28/22 albuterol sulfate 2.5 mg/3 mL 2.5 mg inhalation TID PRN 03/28/22 03/28/22 (0.083 %) solution for nebulization Shortness Of Breath azelastine 0.05 % eye drops 1 drp ophthalmic (eye) BID PRN 03/28/22 03/28/22 Allergy Symptoms calcium carbonate 430 mg calcium 430 mg PO TID PRN Indigestion 03/28/22 03/28/22 (1,000 mg) chewable tablet furosemide 20 mg tablet 20 mg PO DAILY 03/28/22 03/28/22 lamotrigine 100 mg tablet 100 mg PO BEDTIME 03/28/22 03/28/22 (Lamictal) lamotrigine 25 mg tablet (Lamictal) 25 mg PO BEDTIME 03/28/22 03/28/22 menthol 4 % topical gel (Biofreeze 1 appl topical BID 03/28/22 03/28/22 (menthol)) menthol 4 % topical gel (Biofreeze 1 appl topical Q2H PRN Pain (Scale 03/28/22 03/28/22 (menthol)) Score 1-3) nitroglycerin 0.4 mg sublingual 0.4 mg sublingual Q5M PRN Chest 03/28/22 03/28/22 tablet Pain polyvinyl alcohol 1.4 % eye drops 1 drp ophthalmic (eye) DAILY 03/28/22 03/28/22 pseudoephedrine-guaifenesin ER 60 1 tab PO BID PRN Congestion 03/28/22 03/28/22 mg-600 mg tablet,extend release 12hr (Mucus D) sertraline 100 mg tablet 100 mg PO DAILY 03/28/22 03/28/22 sertraline 50 mg tablet (Zoloft) 50 mg PO DAILY 03/28/22 03/28/22 tramadol 100 mg tablet 100 mg PO Q6H PRN Back Pain 03/28/22 03/28/22 atorvastatin 07/17/22 buspirone 15 mg tablet 1 tab PO TID 07/17/22 07/17/22 furosemide 20 mg tablet 1 tab PO DAILY 07/17/22 07/17/22 haloperidol 2 mg tablet 1 tab PO TID 07/17/22 07/17/22 lorazepam 0.5 mg tablet (Ativan) mg PO 07/17/22 melatonin 5 mg capsule 2 cap PO BEDTIME 07/17/22 07/17/22 mirtazapine 15 mg tablet (Remeron) 1 tab PO BEDTIME 07/17/22 07/17/22 olanzapine 15 mg tablet (Zyprexa) 1 tab PO BEDTIME 07/17/22 07/17/22 olanzapine 20 mg tablet (Zyprexa) 1 tab PO BEDTIME 07/17/22 07/17/22 sertraline 100 mg tablet (Zoloft) 1.5 tab PO QAM 07/17/22 07/17/22 Previous Rx's Medication Instructions Recorded cefuroxime axetil 250 mg tablet 250 mg PO BID 7 days #14 tabs 03/21/22 cefuroxime axetil 500 mg tablet 500 mg PO Q12H 5 days #10 tabs 05/31/22 Allergies Allergy/AdvReac Type Severity Reaction Status Date / Time No Known Allergies Allergy Verified 12/15/21 14:53 Review of Systems Review of Systems: Yes all other systems are reviewed and are negative [facility] Past Medical History Medical History Afib Anxiety disorder CHF (congestive heart failure) Cognitive disorder COPD (chronic obstructive pulmonary disease) CVA (cerebrovascular accident) Traumatic brain injury Social History Social History Alcohol intake: former Patient Tobacco Use Status: Former Tobacco user Advance Directives: Yes Advance Directives on File: Yes Advance Directives Date on File: 11/11/21 Physical Exam ED Vital Signs: Vital Signs - 24 hr 07/16/22 20:50 07/16/22 21:31 07/16/22 21:34 Temperature 98.1 F 99.0 F 99.0 F Pulse Rate 79 Respiratory Rate 20 Blood Pressure 114/88 Pulse Oximetry 95 Oxygen Delivery Method Room Air 07/16/22 22:29 07/17/22 01:36 07/17/22 03:41 Temperature 98.1 F 98.1 F 97 F Pulse Rate 79 82 90 Respiratory Rate 18 16 Blood Pressure 106/70 130/91 H Pulse Oximetry 94 95 94 Oxygen Delivery Method Room Air Room Air 07/17/22 03:59 Temperature 97.1 F Pulse Rate 79 Respiratory Rate Blood Pressure 118/72 Pulse Oximetry 95 Oxygen Delivery Method Room Air BMI result Body Mass Index 26.9 Appearance: Alert. Oriented X3. No acute distress. Eyes: PERRLA, No Nystagmus ENT: Pharynx normal. Oral Mucosa moist Neck: Normal inspection. Neck supple. CVS: Normal heart rate and rhythm. Pulses normal. Respiratory: No respiratory distress. Equal air entry bilateral, no wheezing/rales/rhonchi Abdomen: Soft and nontender. Bowel sounds are present, no mass palpable, no CVA tenderness Skin: Skin warm and dry. Normal skin color. Normal skin turgor. Extremities: No lower extremity edema. No calf tenderness psych: Stable mood denies any SI/HI Neuro: Oriented X 3. Left hemiparesis No sensory deficit.No cerebellar signs , cranial nerves II-XII intact Medications Administered Discontinued Medications Generic Name Dose Route Start Last Admin Trade Name Marcel PRN Reason Stop Dose Admin Diphenhydramine HCl 50 mg 07/17/22 03:21 07/17/22 03:27 Diphenhydramine Hcl 50 Mg/Ml Vial IM 07/17/22 03:22 50 mg ONCE ONE Administration Haloperidol Lactate 5 mg 07/16/22 22:23 07/16/22 22:32 Haloperidol Lactate 10 Mg/5 Ml Oral.Conc PO 07/16/22 22:24 5 mg ONCE ONE Administration Lorazepam 2 mg 07/16/22 22:23 07/16/22 22:32 Lorazepam 1 Mg Tablet PO 07/16/22 22:24 2 mg ONCE ONE Administration Lorazepam 2 mg 07/17/22 03:21 07/17/22 03:27 Lorazepam 2 Mg/Ml Vial IM 07/17/22 03:22 2 mg STAT STA Administration Midazolam HCl 4 mg 07/17/22 02:20 07/17/22 02:27 Midazolam Hcl/Pf 2 Mg/2 Ml Vial IM 07/17/22 02:21 4 mg ONCE ONE Administration Olanzapine 20 mg 07/17/22 00:53 07/17/22 01:02 Olanzapine 10 Mg Tablet PO 07/17/22 00:54 20 mg ONCE ONE Administration Medical Decision Making Medical Decision Making MDM Narrative: Patient 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 Workup otherwise medically negative get care team consult for further evaluation Lab Data [facility] Lab Attestation statement: I reviewed the patient's lab results. 07/17/22 01:38 07/17/22 01:38 Labs: Lab Results 07/16/22 07/17/22 07/17/22 Range/Units 21:10 01:38 01:38 WBC 12.5 H (4.8-10.8) X10*3/uL RBC 4.82 (4.60-5.80) X10*6/uL Hgb 14.3 (14.0-18.0) g/dl Hct 44.0 (42.0-52.0) % MCV 91.3 (80.0-98.0) fL MCH 29.7 (27.0-33.0) pg MCHC 32.5 (31.0-36.0) g/dl RDW 14.2 (11.0-16.0) % Plt Count 231 (160-400) X10*3/uL MPV 9.5 (9.4-12.4) fL Immature Gran % (Auto) 0.6 H (0.0-0.4) % Neut % (Auto) 59.8 (45-73) % Lymph % (Auto) 32.5 (20-40) % Kane % (Auto) 5.7 (2-11) % Eos % (Auto) 1.0 (0-4) % Baso % (Auto) 0.4 (0-2) % Lymph # (Auto) 4.1 (1.2-4.9) X10*3/uL Kane # (Auto) 0.7 (0.1-1.2) X10*3/uL Eos # (Auto) 0.1 (0.0-0.4) X10*3/uL Baso # (Auto) 0.1 (0.0-0.2) X10*3/uL Abs Immat Gran (auto) 0.08 H (0.00-0.03) X10*3/uL Absolute Neuts (auto) 7.5 (2.0-8.3) x10*3/uL Absolute Nucleated RBC 0.000 (0.0-0.012) X10*3/uL Nucleated RBC % (auto) 0.0 (0.0-0.2) /100WBC Sodium 140 (135-145) mmol/L Potassium 4.1 (3.3-5.1) mmol/L Chloride 104 (96-108) mmol/L Carbon Dioxide 26 (22-29) mmol/L Anion Gap 14 (12-20) BUN 12 (9-16) mg/dL Creatinine 0.84 (0.5-1.4) mg/dL Estim Creat Clear Calc 115.5 Estimated GFR > 60 Random Glucose 109 (60-115) mg/dL Lactic Acid (0.5-2.0) mmol/L Calcium 9.2 (8.4-10.2) mg/dL Total Bilirubin 0.4 (0.0-1.0) mg/dL AST 18 (5-37) U/L ALT 24 (0-40) U/L Alkaline Phosphatase 121 H (39-117) U/L Total Protein 6.5 (6.5-8.0) g/dL Albumin 4.2 (3.5-5.0) g/dL Urine Color Yellow Urine Appearance Clear Urine pH 5.5 (5.0-9.0) Ur Specific [place] 1.020 (1.005-1.025) Urine Protein Negative (Neg-Trace) mg/dL Urine Glucose (UA) Negative (Negative) mg/dL Urine Ketones Negative (Negative) mg/dL Urine Blood Negative (Negative) Urine Nitrite Negative (Negative) Ur Leukocyte Esterase Negative (Negative) Influenza Type A (PCR) (Negative) Influenza Type B (PCR) (Negative) RSV RNA Qual (PCR) (Negative) SARS-CoV-2 RNA (RT-PCR) (Negative) 07/17/22 07/17/22 Range/Units 01:38 01:38 WBC (4.8-10.8) X10*3/uL RBC (4.60-5.80) X10*6/uL Hgb (14.0-18.0) g/dl Hct (42.0-52.0) % MCV (80.0-98.0) fL MCH (27.0-33.0) pg MCHC (31.0-36.0) g/dl RDW (11.0-16.0) % Plt Count (160-400) X10*3/uL MPV (9.4-12.4) fL Immature Gran % (Auto) (0.0-0.4) % Neut % (Auto) (45-73) % Lymph % (Auto) (20-40) % Kane % (Auto) (2-11) % Eos % (Auto) (0-4) % Baso % (Auto) (0-2) % Lymph # (Auto) (1.2-4.9) X10*3/uL Kane # (Auto) (0.1-1.2) X10*3/uL Eos # (Auto) (0.0-0.4) X10*3/uL Baso # (Auto) (0.0-0.2) X10*3/uL Abs Immat Gran (auto) (0.00-0.03) X10*3/uL Absolute Neuts (auto) (2.0-8.3) x10*3/uL Absolute Nucleated RBC (0.0-0.012) X10*3/uL Nucleated RBC % (auto) (0.0-0.2) /100WBC Sodium (135-145) mmol/L Potassium (3.3-5.1) mmol/L Chloride (96-108) mmol/L Carbon Dioxide (22-29) mmol/L Anion Gap (12-20) BUN (9-16) mg/dL Creatinine (0.5-1.4) mg/dL Estim Creat Clear Calc Estimated GFR Random Glucose (60-115) mg/dL Lactic Acid 1.6 (0.5-2.0) mmol/L Calcium (8.4-10.2) mg/dL Total Bilirubin (0.0-1.0) mg/dL AST (5-37) U/L ALT (0-40) U/L Alkaline Phosphatase (39-117) U/L Total Protein (6.5-8.0) g/dL Albumin (3.5-5.0) g/dL Urine Color Urine Appearance Urine pH (5.0-9.0) Ur Specific [place] (1.005-1.025) Urine Protein (Neg-Trace) mg/dL Urine Glucose (UA) (Negative) mg/dL Urine Ketones (Negative) mg/dL Urine Blood (Negative) Urine Nitrite (Negative) Ur Leukocyte Esterase (Negative) Influenza Type A (PCR) NEGATIVE (Negative) Influenza Type B (PCR) NEGATIVE (Negative) RSV RNA Qual (PCR) NEGATIVE (Negative) SARS-CoV-2 RNA (RT-PCR) NEGATIVE (Negative) Discharge Plan Discharge Clinical Impression: Mood disorder as late effect of traumatic brain injury, Altered mental status Patient Disposition: Still a Patient Prescriptions: No Action lorazepam [Ativan] 0.5 mg tablet 1 tab PO DAILY olanzapine [Zyprexa] 15 mg tablet 1 tab PO BEDTIME lorazepam [Ativan] 1 mg tablet 1 tab PO BEDTIME buspirone 15 mg tablet 1 tab PO TID melatonin 5 mg capsule 2 cap PO BEDTIME mirtazapine 15 mg Tablet 15 mg PO BEDTIME atorvastatin 40 mg Tablet 40 mg PO BEDTIME gabapentin 400 mg Capsule 400 mg TID baclofen 10 mg Tablet 10 mg PO BID levetiracetam 500 mg Tablet 500 mg PO BID pantoprazole 40 mg Tablet,Delayed Release (Dr/Ec) 40 mg PO DAILY@0630 metoprolol tartrate 50 mg Tablet 50 mg PO BID cetirizine 10 mg Tablet 10 mg PO DAILY olanzapine [Zyprexa] 5 mg tablet 5 mg PO BID@0900,1500 docusate sodium 100 mg Capsule 100 mg PO BID furosemide 20 mg Tablet 20 mg PO DAILY PRN (Reason: fluid overload) haloperidol 2 mg tablet 1 tab PO TID finasteride 5 mg Tablet 5 mg PO DAILY lorazepam [Ativan] 0.5 mg tablet 1 tab PO DAILY PRN (Reason: Anxiety) Xarelto 20 mg Tablet 20 mg PO BEDTIME Rx Instructions: must administer with evening meal midodrine 5 mg tablet 1 tab PO TIDAC azelastine 0.05 % Drops 1 drp OPHTHALMIC (EYE) BID PRN (Reason: Allergy Symptoms) acetaminophen 325 mg Tablet 650 mg PO Q4H PRN (Reason: headache/fever) albuterol sulfate 2.5 mg /3 mL (0.083 %) Solution For Nebulization 2.5 mg INHALATION TID PRN (Reason: Shortness Of Breath) polyvinyl alcohol 1.4 % Drops 1 drp OPHTHALMIC (EYE) DAILY sertraline 100 mg Tablet 100 mg PO DAILY Rx Instructions: tdd = 150 mg pseudoephedrine-guaifenesin [Mucus D] 60-600 mg Tablet Extended Release 12 Hr 1 tab PO BID PRN (Reason: Congestion) lamotrigine [Lamictal] 25 mg Tablet 25 mg PO BEDTIME Rx Instructions: tdd = 125 mg nitroglycerin 0.4 mg Tablet, Sublingual 0.4 mg SUBLINGUAL Q5M PRN (Reason: Chest Pain) Rx Instructions: do not exceed 3 doses per episode sertraline [Zoloft] 50 mg tablet 50 mg PO DAILY Rx Instructions: tdd = 150 mg Biofreeze (menthol) 4 % Gel 1 appl TOPICAL BID Rx Instructions: apply a thin layer mid to lower back Biofreeze (menthol) 4 % Gel 1 appl TOPICAL Q2H PRN (Reason: Pain (Scale Score 1-3)) calcium carbonate 430 mg calcium (1,000 mg) Tablet,Chewable 430 mg PO TID PRN (Reason: Indigestion) tramadol 100 mg Tablet 100 mg PO Q6H PRN (Reason: Back Pain) furosemide 20 mg Tablet 20 mg PO DAILY lamotrigine [Lamictal] 100 mg Tablet 100 mg PO BEDTIME cefuroxime axetil 500 mg tablet 500 mg PO Q12H 5 Days Qty: 10 0RF cefuroxime axetil 250 mg tablet 250 mg PO BID 7 Days Qty: 14 0RF Rx Instructions: 03/23/22 to 03/30/22 sertraline [Zoloft] 100 mg tablet 1.5 tab PO QAM lorazepam [Ativan] 0.5 mg tablet PO olanzapine [Zyprexa] 15 mg tablet 1 tab PO BEDTIME furosemide 20 mg tablet 1 tab PO DAILY mirtazapine [Remeron] 15 mg tablet 1 tab PO BEDTIME haloperidol 2 mg tablet 1 tab PO TID olanzapine [Zyprexa] 20 mg tablet 1 tab PO BEDTIME buspirone 15 mg tablet 1 tab PO TID melatonin 5 mg capsule 2 cap PO BEDTIME atorvastatin 40 mg
[2022-07-16 21:16] LABS: Appearance Urine Clear; Color Urine Yellow; Glucose Urine UA Negative (Negative); Leukocyte Esterase Urine Negative (Negative); Nitrite Urine Negative (Negative); PH 5.5 (5.0-9.0); Urine Blood Negative (Negative); Urine Ketones Negative (Negative); Urine Protein Negative (Neg-Trace)
--- NOTE | 2022-07-16 21:22 | PC.NURSE ---
Addendum entered by Angela Santoyo 07/16/22 21:23: Rad Original Note: Liz Davidson contact for service net [phone].
[2022-07-16 21:31] VITALS: TEMP 37.2
[2022-07-16 21:34] VITALS: TEMP 37.2
--- NOTE | 2022-07-16 21:35 | PC.NURSE ---
PT A&O to self. Agitated, uncooperative and yelling at staff , stating I don't want to be here I want to go home . PT laying in stretcher, paralyzed left side. Per staff at facility PT has been yelling at staff, making SI statements and having periods of AMS x 2 days. This contract technical writer spoke to Rad and Rad states PT will not be accepted back until PT gets a crisis eval for his escalating behaviors, provider aware. PT currently denies SI/HI. Urine collected and sent to lab. PT refusing blood draw.
--- NOTE | 2022-07-16 21:35 | MHC.EDTECH ---
pt yelling continuously since admission. Pt repositioned,texas catheter placed . Pt is refusing labs stating he does not want to be poked all night. pt states there is nothing wrong with him and wants to sign himself out .
[2022-07-16 22:29] VITALS: BP 106/70; PULSE 79; TEMP 36.7; O2SAT 94
[2022-07-16] MEDS: LORazepam 1 MG TABLET 2 MG PO (22:32)
--- NOTE | 2022-07-16 22:36 | PC.NURSE ---
pt has been yelling out very frequently for his needs. pt instructed not to shout but is not working. pt requesting his evening medications.
--- NOTE | 2022-07-16 23:13 | PC.NURSE ---
Pt has been shouting since he arrived. Informed charge nurse that pt called a PCT a n. He has been told repeatedly to stop yelling and using foul language.
[2022-07-17] VITALS (7 sets, daily range): BP systolic 102–130; BP diastolic 71–91; PULSE 79–99; RESP 16–20; TEMP 36.1–36.7; O2SAT 93–96
[2022-07-17] MEDS: OLANZapine 10 MG TABLET 20 MG PO (01:02)
--- NOTE | 2022-07-17 01:36 | PC.NURSE ---
PT continues to yell out loud for needs to be meet, not redirectable . PT incontinent of stool, incontinent care provided, two assist. PT repositioned and new condom cath placed. PT agreeable to blood to be drawn at this time. Blood collected and sent to lab.
[2022-07-17 01:43] LABS: MANUAL DIFF FLAG NO
[2022-07-17 01:46] LABS: Basophils Absolute Auto 0.1 X10*3/uL (0.0-0.2); Basophils Percent Auto 0.4 % (0-2); Eosinophils Absolute Auto 0.1 X10*3/uL (0.0-0.4); Hemoglobin 14.3 g/dl (14.0-18.0); Imm Gran Abs Auto 0.08 X10*3/uL (0.00-0.03); Imm Gran Pct Auto 0.6 % (0.0-0.4); Lymphocytes Absolute Auto 4.1 X10*3/uL (1.2-4.9); Lymphocytes Percent Auto 32.5 % (20-40); Mean Corpuscular HGB Conc 32.5 g/dl (31.0-36.0); Mean Corpuscular Hemoglobin 29.7 pg (27.0-33.0); Mean Corpuscular Volume 91.3 fL (80.0-98.0); Mean Platelet Volume 9.5 fL (9.4-12.4); Monocytes Absolute Auto 0.7 X10*3/uL (0.1-1.2); Monocytes Percent Auto 5.7 % (2-11); Neutrophils Absolute Auto 7.5 x10*3/uL (2.0-8.3); Neutrophils Percent Auto 59.8 % (45-73); Platelet Count 231 X10*3/uL (160-400); Red Blood Count 4.82 X10*6/uL (4.60-5.80); Red Cell Distribution Width 14.2 % (11.0-16.0); White Blood Count 12.5 X10*3/uL (4.8-10.8)
[2022-07-17 02:00] LABS: Lactic Acid 1.6 mmol/L (0.5-2.0)
[2022-07-17 02:06] LABS: Alanine Aminotransferase 24 U/L (0-40); Albumin Level 4.2 g/dL (3.5-5.0); Alkaline Phosphatase 121 U/L (39-117); Anion Gap 14 (12-20); Aspartate Amino Transferase 18 U/L (5-37); Bilirubin Total 0.4 mg/dL (0.0-1.0); Blood Urea Nitrogen 12 mg/dL (9-16); Calcium 9.2 mg/dL (8.4-10.2); Carbon Dioxide 26 mmol/L (22-29); Chloride 104 mmol/L (96-108); Creatinine Clr Calc Pharmacy 115.5; Estimated Glomerular Filt Rate > 60; Glucose Random 109 mg/dL (60-115); Potassium 4.1 mmol/L (3.3-5.1); Sodium 140 mmol/L (135-145); Total Protein 6.5 g/dL (6.5-8.0)
--- NOTE | 2022-07-17 02:22 | PC.NURSE ---
pt unable to sleep, calls out thinking he had a bowel movement and is passing gas. pt has been turned cleaned and redressed in his gown.
[2022-07-17 02:25] LABS: Influenza A PCR NEGATIVE (Negative); Influenza B PCR NEGATIVE (Negative); Resp Syncy Virus RNA Qual PCR NEGATIVE (Negative); SARS COV2 PCR INHOUSE NEGATIVE (Negative)
[2022-07-17] MEDS: Midazolam HCl/PF 2 MG/2 ML VIAL 4 MG IM (02:27)
--- NOTE | 2022-07-17 03:21 | MHC.EDTECH ---
pt is yelling continously even after someone goes into the room to help him he will still yell out and ring call rush just because he is bored when you go to see what he needs , I will not go back into the room because i was called the N word and a monkey
[2022-07-17] MEDS: LORazepam 2 MG/ML VIAL IM (03:27)
[2022-07-17] MEDS: diphenhydrAMINE HCL 50 MG/ML VIAL IM (03:27)
--- NOTE | 2022-07-17 03:36 | PC.NURSE ---
Took over care of pt at this time from Nikki Simon, Medicated per aug.
--- NOTE | 2022-07-17 03:42 | MHC.EDTECH ---
PT given [facility]. Pt bed soiled with urine and stool. PT had a med bm. Pt changed into hospital gown/bedlinen changed. Pt given warm blankets and call rush placed in reach
--- NOTE | 2022-07-17 03:48 | PC.NURSE ---
Completed changed over and bed change, pt continue to monitor pt.
--- NOTE | 2022-07-17 03:49 | MHC.EDTECH ---
Pt screaming Nurse nurse nurse Pt repositioned in bed / Pt given requested liquids and warm blankets but continues to yell. RN Idalmis aware.
--- NOTE | 2022-07-17 05:14 | PC.NURSE ---
Medical restraint on paper form.
--- NOTE | 2022-07-17 05:27 | PC.NURSE ---
pt reposition comfort and drink given. Pt continue to yell out nurse.
--- NOTE | 2022-07-17 09:17 | PC.NURSE ---
pt changed to a hosptial bed.
--- NOTE | 2022-07-17 10:29 | MHC.CARE ---
CARE Team C Web Developer Michaela Rangel: CARE Team spoke with Kamila Morris RN ([phone]) to gain collateral information. She described the pt?s behaviors over the last 36 hours as ?aggressive and vulgar.? She reported pt has been screaming at staff, verbally aggressive and experiencing visual hallucinations. Kamila stated pt is medication compliant and being actively followed by Felicita Kim ([phone]). She is also concerned regarding pt?s mental state. She is requesting hospital staff rule-out Bipolar disorder and schizophrenia due to pt?s elevated behaviors.
--- NOTE | 2022-07-17 10:31 | MHC.CARE ---
CARE Team spoke with Lata Washburn from [facility] requesting a meeting regarding DDS and residential team. CARE Team and Lata spoke regarding case - CARE Team informed Joy that case will be reviewed in morning rounds at 1130 and CARE Team will follow up afterwards. Per Lata Pt has an invoked health care proxy.
--- NOTE | 2022-07-17 10:34 | MHC.CARE ---
CARE Team met with Pt briefly- Pt stating he was sorry for his behaviors stating he wants to go home.
[2022-07-17] MEDS: LORazepam 1 MG TABLET PO ×3 (12:03→23:54)
--- NOTE | 2022-07-17 12:04 | MHC.CARE ---
CARE Team attempted to call Pts stepdaughter/ HCP Radha [phone] for collateral information. No answer and unable to leave VM.
--- NOTE | 2022-07-17 12:06 | PC.NURSE ---
pt medicated per provider order, pt requested tamanna diana, assisted in drinking tamanna diana.
--- NOTE | 2022-07-17 12:37 | PHA.MEDREC ---
ED REC COMPLETE, NO ISSUES. LIST FROM FACILITY Pharmacy Consult ? Medication Reconciliation Pharmacy has completed the medication reconciliation.
--- NOTE | 2022-07-17 14:44 | PM.PSYCN ---
History of Present Illness Date of Service: 07/17/2022 Chief Complaint: FEELS WARM, AMS X'S 2 DAYS,F/C FROM SNF PER EMS Reason for Consult: AH, agitation. SI Discussed with referring provider: Yes Sources of Information: patient interviewed, chart reviewed and crisis/core team assessment reviewed HPI Narrative: Mr. 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 Pt lives in residential for past 8 months. He is known to psychiatry through 3 previous evaluation in the ED for similar presentation. Pt brought to ED as he appeared to be paranoid about some birds outside thinking that they were going to attack him. Pt is known to be irritable, with low frustration tolerance, constant yelling when demands not met, impulsive (although mobility is limited) with tendency to have explosive behaviors (mostly limited to throwing, or being verbally abusive as pt's mobility is very limited). All these symptoms consistent with mood disorder secondary to TBI. In the past he has presented with some degree of suspiciousness towards a particular staff member at . Today, pt seen yelling calling out RN who had just left and helped him reposition. 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 Pt increasingly more agitated, asking when he can be sent back to residential. He denies suicidal or homicidal ideation. He complains about this particular staff member again but despite this, he states he wants to go back home. He denies VH/AH. No signs of overt psychosis or delusions, other than his typical presentation. Collateral information from - pt does take medications regularly, rarely would refuse to take medications. Staff concern about incident with the birds and that pt was reporting birds trying to attack him and he took his oxygen off. Past Psychiatric History: h/o TBI. intermittent agitation. [facility] Medical History Afib Anxiety disorder CHF (congestive heart failure) Cognitive disorder COPD (chronic obstructive pulmonary disease) CVA (cerebrovascular accident) Traumatic brain injury Diagnostics Vital Signs (24Hr): Vital Signs - 24 hr 07/16/22 20:50 07/16/22 21:31 07/16/22 21:34 Temperature 98.1 F 99.0 F 99.0 F Pulse Rate 79 Respiratory Rate 20 Blood Pressure 114/88 Pulse Oximetry 95 Oxygen Delivery Method Room Air 07/16/22 22:29 07/17/22 01:36 07/17/22 03:41 Temperature 98.1 F 98.1 F 97 F Pulse Rate 79 82 90 Respiratory Rate 18 16 Blood Pressure 106/70 130/91 H Pulse Oximetry 94 95 94 Oxygen Delivery Method Room Air Room Air 07/17/22 03:59 07/17/22 07:20 Temperature 97.1 F Pulse Rate 79 79 Respiratory Rate 19 Blood Pressure 118/72 102/71 Pulse Oximetry 95 94 Oxygen Delivery Method Room Air Room Air BMI result Body Mass Index 26.9 Labs 07/17/22 01:38 07/17/22 01:38 Labs: Laboratory Results - last 48 hr 07/16/22 07/17/22 07/17/22 21:10 01:38 01:38 WBC 12.5 H RBC 4.82 Hgb 14.3 Hct 44.0 MCV 91.3 MCH 29.7 MCHC 32.5 RDW 14.2 Plt Count 231 MPV 9.5 Immature Gran % (Auto) 0.6 H Neut % (Auto) 59.8 Lymph % (Auto) 32.5 [place] % (Auto) 5.7 Eos % (Auto) 1.0 Baso % (Auto) 0.4 Lymph # (Auto) 4.1 [place] # (Auto) 0.7 Eos # (Auto) 0.1 Baso # (Auto) 0.1 Abs Immat Gran (auto) 0.08 H Absolute Neuts (auto) 7.5 Absolute Nucleated RBC 0.000 Nucleated RBC % (auto) 0.0 Sodium 140 Potassium 4.1 Chloride 104 Carbon Dioxide 26 Anion Gap 14 BUN 12 Creatinine 0.84 Estim Creat Clear Calc 115.5 Estimated GFR > 60 Random Glucose 109 Lactic Acid Calcium 9.2 Total Bilirubin 0.4 AST 18 ALT 24 Alkaline Phosphatase 121 H Total Protein 6.5 Albumin 4.2 Urine Color Yellow Urine Appearance Clear Urine pH 5.5 Ur Specific [place] 1.020 Urine Protein Negative Urine Glucose (UA) Negative Urine Ketones Negative Urine Blood Negative Urine Nitrite Negative Ur Leukocyte Esterase Negative Influenza Type A (PCR) Influenza Type B (PCR) RSV RNA Qual (PCR) SARS-CoV-2 RNA (RT-PCR) 07/17/22 07/17/22 01:38 01:38 WBC RBC Hgb Hct MCV MCH MCHC RDW Plt Count MPV Immature Gran % (Auto) Neut % (Auto) Lymph % (Auto) [place] % (Auto) Eos % (Auto) Baso % (Auto) Lymph # (Auto) [place] # (Auto) Eos # (Auto) Baso # (Auto) Abs Immat Gran (auto) Absolute Neuts (auto) Absolute Nucleated RBC Nucleated RBC % (auto) Sodium Potassium Chloride Carbon Dioxide Anion Gap BUN Creatinine Estim Creat Clear Calc Estimated GFR Random Glucose Lactic Acid 1.6 Calcium Total Bilirubin AST ALT Alkaline Phosphatase Total Protein Albumin Urine Color Urine Appearance Urine pH Ur Specific [place] Urine Protein Urine Glucose (UA) Urine Ketones Urine Blood Urine Nitrite Ur Leukocyte Esterase Influenza Type A (PCR) NEGATIVE Influenza Type B (PCR) NEGATIVE RSV RNA Qual (PCR) NEGATIVE SARS-CoV-2 RNA (RT-PCR) NEGATIVE Mental Status Exam Mental Status Exam Narrative: Appearance: casually groomed, fair hygiene in NAD Behavior:yelling, asking to be sent back to psychomotor: no agitation or retardation noted Speech:clear, normal rate/rhythm, volume, spontaneous, loud at times Thought process:mostly linear Thought content:wanting to go back . Mood: good Affect: irritable SI:none HI:none VH/AH: none Delusions:some suspiciousness towards staff (this particular staff) but no overt delusional content noted or reported Insight/judgment:poor x 2. Memory/cog: alert, oriented x 3. underlying TBI not formal testing. Medications Medications Current Medications Pharmacy Consult (Consult Rx Perform Med Rec) 1 each MISCELLANE ONCE PRN PRN Reason: Consult order Allergies Allergies Allergy/AdvReac Type Severity Reaction Status Date / Time No Known Allergies Allergy Verified 12/15/21 14:53 Assessment & Plan Assessment & Plan (1) Mood disorder as late effect of traumatic brain injury: Status: Acute Code(s): F06.30 - Mood disorder due to known physiological condition, unspecified; S06.9XAS - Unspecified intracranial injury with loss of consciousness status unknown, sequela Plan Mr. 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 Pt sent to ED due to concerns of new onset psychosis/delusions. It appears pt was reporting birds outside the house trying to attack him and he did not want to go out. He denies SI/HI. He denies VH/AH. He presents with usual presentation of yelling when demands not met immediately. No imminent safety concerns to required inpatient psychiatric care. However, it has been recommended in the past some medication adjustments including spreading antipsychotic during the day. Consider coordinating with neuro to switch pt from keppra to depakote (keppra can have increased mood disturbances and depakote can help depending on type of seizures, also with impulsive and explosive behaviors and mood). Try clonidine 0.1mg po TID- monitor BP, hold SBP<90, DBP<60, HR<55. PLAN 1. Can observed pt overnight and send back if stable. 2. At this point no imminent harm to self or others to require inpatient psych admission. Total time managing care of this patient today ____ minutes.
--- NOTE | 2022-07-17 16:16 | PC.NURSE ---
PT CONTINUALLY YELLING OUT, NOT ACCEPTING REDIRECTION. PT THROWING WATER CUPS, FOOD AND HITTING HIS BEDSIDE TABLE INTO THE WALL. 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 PT REQUESTING HIS PRNS.
--- NOTE | 2022-07-17 16:21 | PC.NURSE ---
PT GIVEN A [facility] SANDWHICH FOR LUNCH HE DID NOT LIKE WHAT CAME ON HIS TRAY. PT THREW THE SANDWHICH AT THE WALL.
--- NOTE | 2022-07-17 16:23 | MHC.CARE ---
Osiris reports she will be doing med changes and re-assess tomorrow on 07/18/22 to decide disposition.
[2022-07-17] MEDS: cloNIDine HCL 0.1 MG TABLET PO (20:46)
[2022-07-17] MEDS: HaloperidoL 5 MG TABLET PO ×2 (20:46→23:53)
[2022-07-17] MEDS: OLANZapine 10 MG TABLET PO (20:46)
--- NOTE | 2022-07-17 21:34 | PC.NURSE ---
pt medicated according to aug. pt continues to yell out. pt apologetic. pt states he has no new needs
--- NOTE | 2022-07-17 23:25 | MHC.CM.ED ---
Pt continuing to be evaluated by psych. CM will assist with D/C planning if needed. Plan is for med changes and Bianca Carvajal NP will reassess on 07/18 for disposition. From [facility]
[2022-07-17] MEDS: diphenhydrAMINE HCL 25 MG CAPSULE 50 MG PO (23:53)
[2022-07-18] VITALS (14 sets, daily range): BP systolic 90–114; BP diastolic 53–87; PULSE 76–150; RESP 16–24; TEMP 36.9; O2SAT 93–97
--- NOTE | 2022-07-18 | ECG_ITS ---
Test Reason : HIGH HEART RATE Blood Pressure : / mmHG Vent. Rate : 208 BPM Atrial Rate : 107 BPM P-R Int : 000 ms QRS Dur : 074 ms QT Int : 206 ms P-R-T Axes : 000 061 124 degrees QTc Int : 383 ms Atrial fibrillation with rapid ventricular response ST & T wave abnormality, consider inferior ischemia Abnormal ECG When compared with ECG of 11-JUL-2022 13:53, Current undetermined rhythm precludes rhythm comparison, needs review Vent. rate has increased ST now depressed in Lateral leads T wave inversion now evident in Inferior leads T wave inversion now evident in Lateral leads Referred By: Sigrid Morris Electronically Signed By:JAGDISH LIU MD
--- NOTE | 2022-07-18 | ECG_ITS ---
Test Reason : REPEAT Blood Pressure : / mmHG Vent. Rate : 137 BPM Atrial Rate : 000 BPM P-R Int : 000 ms QRS Dur : 076 ms QT Int : 306 ms P-R-T Axes : 000 010 072 degrees QTc Int : 462 ms Atrial fibrillation with rapid ventricular response Low voltage QRS Abnormal ECG When compared with ECG of 18-JUL-2022 15:52, Vent. rate has decreased ST no longer elevated in Inferior leads T wave inversion no longer evident in Inferior leads T wave inversion no longer evident in Lateral leads Referred By: Sigrid Morris Electronically Signed By:JAGDISH LIU MD
[2022-07-18] MEDS: OLANZapine 10 MG TABLET PO ×3 (02:07→17:11)
--- NOTE | 2022-07-18 02:09 | PC.NURSE ---
pt continues to yell out. pt medicated according to mar. pt states no new needs. pt refuses to allow this rn to take vital signs at this time
[2022-07-18] MEDS: Haloperidol Lactate 5 MG/ML VIAL 10 MG IM (02:43)
[2022-07-18] MEDS: LORazepam 2 MG/ML VIAL IM (02:43)
--- NOTE | 2022-07-18 05:15 | PC.NURSE ---
At approximately 0200 I administered this pt Haldol 10mg IM and Ativan 2mg IM. When I entered the room the pt had been yelling out, intermittently and very loudly. WHen I enter room the pt states don't mind me, can't help it (referring to the yelling). He is alert, cooperative, yet occasionally screaming loudly. There is no respiratory distress, pt makes eye contact with RN. Per request MD Jim I administered the requested IM medications. VS monitored prior and after emergency medicine specialist. per restraint flowsheet. Medication restraint form filled out and signed by MD - awaiting nursing supervisors assessment of form.
--- NOTE | 2022-07-18 05:56 | PC.NURSE ---
pt continues to call out. when this rn enters pt room. pt denies new needs at this time
[2022-07-18] MEDS: HaloperidoL 5 MG TABLET PO ×2 (08:54→17:10)
[2022-07-18] MEDS: cloNIDine HCL 0.1 MG TABLET PO ×2 (08:54→17:08)
--- NOTE | 2022-07-18 10:26 | MHC.CARE ---
Care Team left message for Rad Davidson(Director of [facility] [phone]) to discuss discharge for Angel. Message left for same.
[2022-07-18] MEDS: traMADoL HCL 50 MG TABLET 100 MG PO (11:42)
[2022-07-18] MEDS: LORazepam 0.5 MG TABLET PO (11:42)
[2022-07-18] MEDS: Midodrine HCl 5 MG TABLET PO ×2 (11:43→19:16)
--- NOTE | 2022-07-18 12:23 | MHC.CARE ---
Rad Davidson [phone] called back, he reports the main concern is that patient has been in CARE for 8 months and they have never seen AH/ paranoia to such a degree that he is refusing care/ refusing to wear his mask. He is fearful birds are attacking him, which leads to reluctance to wear his mask, on O2, resistant, to care d/t paranoia
--- NOTE | 2022-07-18 12:44 | PC.NURSE ---
pt medicated per provider order for PRN pain/anxiety, pt reporting back pain, pt repositioned in hospital bed, condom cath in place, pt threw lunch tray across room, continues to yell and ask for a nurse - when approach pt state that he is fine, pt asking to return to facility.
--- NOTE | 2022-07-18 14:45 | PC.NURSE ---
pt assisted with eating mashed potatoes and pudding, continues to yell out for assistance, but when asked denies any needs at this time.
--- NOTE | 2022-07-18 15:55 | PC.NURSE ---
1552 12 MG ADENOSINE GIVE (hr DROPPED TO 149 THEN BACK UP TO 209) 1552: VITALS HR 205, 22 RR, BP 107/81 1555 12 MG ADNEOSINE GIVEN (HR DROPPED TO 83 BACK UP TO 213) 1557: vs 214 HR. 94% ON 4 L, 21 RESPIRATIONS, 108/82
--- NOTE | 2022-07-18 16:03 | PC.NURSE ---
18G lac 1600: orders for blood work and chest xray in 1602: Lopressor 5mg given 1603: VS HR 175 91% 4L O2, BP 11/82 1605: VS 159 HR, 90% 4L, RR 22, 114/72 BP
--- NOTE | 2022-07-18 16:10 | PC.NURSE ---
1608: Mag 2mg started 1610: 5mg Lopressor VSS 132 HR, 91% 4 L, 20 RR
--- NOTE | 2022-07-18 16:12 | PC.NURSE ---
1412: VS 99/64 BP, 148 HR, 93% 4L, 22 RR 1615: 10mg Cardizem IVP given VS 122 HR, 93% 4L NC, 25 RR
[2022-07-18 16:16] LABS: Glucose, Whole Blood 145 mg/dL (60-115)
--- NOTE | 2022-07-18 16:19 | ECG_ITS ---
Test Reason : cp Blood Pressure : / mmHG Vent. Rate : 099 BPM Atrial Rate : 000 BPM P-R Int : 000 ms QRS Dur : 078 ms QT Int : 330 ms P-R-T Axes : 000 -08 030 degrees QTc Int : 423 ms Atrial fibrillation Low voltage QRS Abnormal ECG When compared with ECG of 18-JUL-2022 16:08, No significant change was found Referred By: Sigrid Morris Electronically Signed By:Jaylan Rouse
[2022-07-18 16:20] LABS: MANUAL DIFF FLAG NO
[2022-07-18 16:23] LABS: Basophils Absolute Auto 0.1 X10*3/uL (0.0-0.2); Basophils Percent Auto 0.3 % (0-2); Eosinophils Percent Auto 0.1 % (0-4); Hematocrit 46.7 % (42.0-52.0); Hemoglobin 15.2 g/dl (14.0-18.0); Imm Gran Abs Auto 0.17 X10*3/uL (0.00-0.03); Lymphocytes Absolute Auto 4.6 X10*3/uL (1.2-4.9); Lymphocytes Percent Auto 26.2 % (20-40); Mean Corpuscular HGB Conc 32.5 g/dl (31.0-36.0); Mean Corpuscular Hemoglobin 29.5 pg (27.0-33.0); Mean Corpuscular Volume 90.5 fL (80.0-98.0); Mean Platelet Volume 9.8 fL (9.4-12.4); Monocytes Percent Auto 5.6 % (2-11); Neutrophils Absolute Auto 11.7 x10*3/uL (2.0-8.3); Neutrophils Percent Auto 66.8 % (45-73); Platelet Count 354 X10*3/uL (160-400); Red Blood Count 5.16 X10*6/uL (4.60-5.80); Red Cell Distribution Width 14.1 % (11.0-16.0); White Blood Count 17.5 X10*3/uL (4.8-10.8)
[2022-07-18 16:39] LABS: Alanine Aminotransferase 24 U/L (0-40); Albumin Level 4.6 g/dL (3.5-5.0); Alkaline Phosphatase 118 U/L (39-117); Anion Gap 27 (12-20); Aspartate Amino Transferase 48 U/L (5-37); Bilirubin Direct 0.4 mg/dL (0.0-0.5); Bilirubin Total 1.4 mg/dL (0.0-1.0); Blood Urea Nitrogen 16 mg/dL (9-16); Calcium 9.8 mg/dL (8.4-10.2); Carbon Dioxide 14 mmol/L (22-29); Chloride 103 mmol/L (96-108); Creatinine Clr Calc Pharmacy 80.1; Estimated Glomerular Filt Rate > 60; Glucose Random 155 mg/dL (60-115); Magnesium 2.2 mg/dL (1.6-2.6); Potassium 4.2 mmol/L (3.3-5.1); Sodium 140 mmol/L (135-145); Total Protein 7.1 g/dL (6.5-8.0)
[2022-07-18 16:42] LABS: B Type Natriuretic Peptide 249 pg/mL (<100)
[2022-07-18 16:44] LABS: Troponin-I High Sensitivity 16.2 ng/L (<3.5-35.0)
[2022-07-18] MEDS: busPIRone HCl 5 MG TABLET 15 MG PO ×2 (17:06→20:45)
[2022-07-18] MEDS: Acetaminophen 325 MG TABLET 650 MG PO ×2 (17:06→20:44)
[2022-07-18] MEDS: Gabapentin 400 MG CAPSULE PO ×2 (17:08→20:46)
[2022-07-18] MEDS: HaloperidoL 1 MG TABLET 2 MG PO (17:09)
[2022-07-18] MEDS: dilTIAZem HCL CD 120 MG CAP.ER.DEG PO (17:10)
[2022-07-18] MEDS: OLANZapine 5 MG TABLET PO (17:11)
[2022-07-18 18:18] LABS: Reflex Lactate? Lactic Acid Added
[2022-07-18] MEDS: 0.9 % Sodium Chloride 3,000 ML 1000 ML IV (19:08)
[2022-07-18] MEDS: Piperacillin Sodium/Tazobactam 4.5 GM in 0.9 % Sodium Chloride 100 ML IV (19:10)
[2022-07-18] MEDS: dilTIAZem HCL 125 MG in 0.9 % Sodium Chloride 100 ML 10 MG IVCONT (19:14)
[2022-07-18 19:28] LABS: INTERNATIONAL NORM RATIO 1.2 (0.9-1.1); Prothrombin Time 13.8 SEC (10.0-13.1)
[2022-07-18 19:40] LABS: ~Lactic Acid-LAB USE ONLY 1.9 mmol/L (0.5-2.0)
--- NOTE | 2022-07-18 19:56 | PC.NURSE ---
late note, pt repositioned back into bed by Dolores, pt noted to be diaphoretic, phototypesetting equipment monitor applied w rate in 200-240s, provider notified and brought to bedside, 20G placed right AC by provider, 20G placed right forearm by RN, labs drawn, pt medicated and vitals per ESTELA Scott's notes.
[2022-07-18 20:05] LABS: Procalcitonin 0.14 ng/mL
[2022-07-18] MEDS: Sennosides 8.6 MG TABLET PO (20:45)
[2022-07-18] MEDS: lamoTRIgine 25 MG TABLET PO (20:45)
[2022-07-18] MEDS: Atorvastatin Calcium 40 MG TABLET PO (20:45)
[2022-07-18] MEDS: Docusate Sodium 100 MG CAPSULE PO (20:45)
[2022-07-18] MEDS: lamoTRIgine 100 MG TABLET PO (20:45)
[2022-07-18] MEDS: Rivaroxaban 20 MG TABLET PO (20:46)
--- NOTE | 2022-07-18 21:03 | PC.NURSE ---
Pt resting comfortably in bed. Pt's HR decreased to a rate between 85-95. This RN paused diltiazem drip at this time. Pt's lactic acid decreased with NS infusion. NS fluids now paused at provider's request. Approximately 2000 of 3000 mL infused. Pt's BP still hypotensive after NS fluid infusion. This RN held specific night meds that would compound hypotension. This RN will continue to monitor HR and BP for this pt.
--- NOTE | 2022-07-18 21:19 | PM.IMHP ---
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 on 07/16/2022 for yelling at the staff, SI, increased confusion per staff, subjective fever, and burning sensation when urinating. In ED patient was afebrile with blood pressure 152/80, POC 148, and patient denied SI or HI. Workup in the ED was negative, but patient was shouting at staff in the ED throughout the day and throughout the night. Staff at the patient's snf did not allow patient to be transferred back to facility and requested evaluation for inpatient psychiatric services. Patient continued to yell at staff in the ED through the next day and night and was very agitated. Patient received Haldol, Ativan, Benadryl, and Zyprexa to little effect. Today, on day 3 of patient's stay in the ED patient was observed to go into AFib with RVR with heart rate over 200. Patient was given adenosine, Mag sulfate, Lopressor, and eventually started on a Cardizem drip. Patient's heart rate now in the 80s. Patient currently complains of chest pressure, but no palpitations, SOB. Denies headache, vision changes. No abdominal pain. Patient last had bowel movement yesterday, but not today. Labs were significant for leukocytosis of 17.5, lactic acidosis of a 9.0 with repeat of 1.9, elevated BNP of 249, troponin WNL at 16.2, procalcitonin negative at 0.14. CXR showed cardiomegaly and increased interstitial markings with pleural thickening. CT?of chest and abdomen pending. Pt will be admitted to the hospital for treatment evaluation of AFib with RVR and leukocytosis of unknown etiology. Review of Systems Review of Systems: Chest pressure Palpitations Denies shortness of breath No abdominal pain Yes all other systems are reviewed and are negative [facility] Medical History Afib Anxiety disorder CHF (congestive heart failure) Cognitive disorder COPD (chronic obstructive pulmonary disease) CVA (cerebrovascular accident) Traumatic brain injury Social History Alcohol intake: former Patient Tobacco Use Status: Former Tobacco user Advance Directives: Yes Advance Directives on File: Yes Advance Directives Date on File: 11/11/21 Meds Allergies Allergy/AdvReac Type Severity Reaction Status Date / Time No Known Allergies Allergy Verified 12/15/21 14:53 Active Medications: Current Medications Acetaminophen (Acetaminophen 325 Mg Tablet) 650 mg PO DAILY PRN PRN Reason: HEADACHE, VALERY > 100.4, BODY ACHES Acetaminophen (Acetaminophen 325 Mg Tablet) 650 mg PO TID [facility] Last Admin: 07/18/22 20:44 Dose: 650 mg Albuterol Sulfate (Albuterol Sulfate (0.083%) 2.5 Mg/3 Ml Vial.Neb) 2.5 mg INHALE TID PRN PRN Reason: Shortness Of Breath Artificial Tears (Artificial Tears 15 Ml Drops) 1 drop EYE-BOTH DAILY [facility] Atorvastatin Calcium (Atorvastatin Calcium 40 Mg Tablet) 40 mg PO BEDTIME [facility] Last Admin: 07/18/22 20:45 Dose: 40 mg Baclofen (Baclofen 20 Mg Tablet) 20 mg PO BID [facility] Buspirone HCl (Buspirone Hcl 5 Mg Tablet) 15 mg PO TID [facility] Last Admin: 07/18/22 20:45 Dose: 15 mg Calcium Carbonate (Calcium Carbonate 500 Mg Tablet) 500 mg PO TID PRN PRN Reason: Indigestion Clonidine HCl (Clonidine Hcl 0.1 Mg Tablet) 0.1 mg PO TID [facility]; Protocol Last Admin: 07/18/22 17:08 Dose: 0.1 mg Docusate Sodium (Docusate Sodium 100 Mg Capsule) 100 mg PO BID [facility] Last Admin: 07/18/22 20:45 Dose: 100 mg Finasteride (Finasteride 5 Mg Tablet) 5 mg PO DAILY [facility] Fluticasone/Vilanterol (Fluticasone/Vilanterol 200/25 Blst.W.Dev) 1 puff INHALE RDAILY [facility] Furosemide (Furosemide 20 Mg Tablet) 20 mg PO DAILY PRN; Protocol PRN Reason: fluid overload Furosemide (Furosemide 20 Mg Tablet) 20 mg PO DAILY [facility]; Protocol Gabapentin (Gabapentin 400 Mg Capsule) 400 mg PO TID [facility] Last Admin: 07/18/22 20:46 Dose: 400 mg Haloperidol (Haloperidol 5 Mg Tablet) 5 mg PO TID [facility] Last Admin: 07/18/22 17:10 Dose: 5 mg Haloperidol (Haloperidol 1 Mg Tablet) 2 mg PO TID [facility] Last Admin: 07/18/22 17:09 Dose: 2 mg Diltiazem HCl 125 mg/ Sodium (Chloride) 125 mls @ 0 mls/hr IVCONT .Q0M [facility]; Protocol Last Titration: 07/18/22 20:52 Dose: 0 mg/hr, 0 mls/hr Lamotrigine (Lamotrigine 25 Mg Tablet) 25 mg PO BEDTIME [facility] Last Admin: 07/18/22 20:45 Dose: 25 mg Lamotrigine (Lamotrigine 100 Mg Tablet) 100 mg PO BEDTIME [facility] Last Admin: 07/18/22 20:45 Dose: 100 mg Loratadine (Loratadine 10 Mg Tablet) 10 mg PO DAILY [facility] Lorazepam (Lorazepam 1 Mg Tablet) 1 mg PO Q4H PRN PRN Reason: anxiety Last Admin: 07/17/22 17:44 Dose: 1 mg Lorazepam (Lorazepam 0.5 Mg Tablet) 0.5 mg PO BID [facility] Lorazepam (Lorazepam 0.5 Mg Tablet) 0.5 mg PO DAILY PRN PRN Reason: Anxiety Last Admin: 07/18/22 11:42 Dose: 0.5 mg Lorazepam (Lorazepam 1 Mg Tablet) 1 mg PO BEDTIME [facility] Melatonin (Melatonin 3 Mg Tablet) 9 mg PO BEDTIME [facility] Metoprolol Tartrate (Metoprolol Tartrate 50 Mg Tablet) 50 mg PO BID [facility]; Protocol Midodrine (Midodrine Hcl 5 Mg Tablet) 5 mg PO TIDAC [facility] Last Admin: 07/18/22 19:16 Dose: 5 mg Mirtazapine (Mirtazapine 15 Mg Tablet) 15 mg PO BEDTIME [facility] Nitroglycerin (Nitroglycerin 0.4 Mg Tab.Subl) 0.4 mg SUBLINGUAL Q5M PRN PRN Reason: Chest Pain Non-Formulary Medication (Azelastine) 1 drop EYE-BOTH BID PRN PRN Reason: Allergy Symptoms Non-Formulary Medication (Umeclidinium [Incruse Ellipta]) 1 inhalation INHALE DAILY [facility] Olanzapine (Olanzapine 10 Mg Tablet) 10 mg PO TID [facility] Last Admin: 07/18/22 17:11 Dose: 10 mg Olanzapine (Olanzapine 5 Mg Tablet) 5 mg PO BID@0900,1500 [facility] Last Admin: 07/18/22 17:11 Dose: 5 mg Olanzapine (Olanzapine 10 Mg Tablet) 20 mg PO BEDTIME [facility] Omeprazole (Omeprazole 20 Mg Capsule.Dr) 20 mg PO DAILY@0630 [facility] Pharmacy Consult (Consult Rx Perform Med Rec) 1 each MISCELLANE ONCE PRN PRN Reason: Consult order Rivaroxaban (Rivaroxaban 20 Mg Tablet) 20 mg PO BEDTIME [facility] Last Admin: 07/18/22 20:46 Dose: 20 mg Senna (Sennosides 8.6 Mg Tablet) 8.6 mg PO BID [facility] Last Admin: 07/18/22 20:45 Dose: 8.6 mg Sertraline HCl (Sertraline Hcl 50 Mg Tablet) 150 mg PO DAILY [facility] Tramadol HCl (Tramadol Hcl 50 Mg Tablet) 100 mg PO Q6H PRN PRN Reason: Back Pain Last Admin: 07/18/22 11:42 Dose: 100 mg Home Medications Medication Instructions Recorded Confirmed Last Taken Type atorvastatin 40 mg tablet 40 mg PO BEDTIME 02/28/22 07/17/22 Unknown History gabapentin 400 mg capsule 400 mg TID 02/28/22 07/17/22 Unknown History levetiracetam 500 mg tablet 500 mg PO BID 02/28/22 07/17/22 Unknown History lorazepam 0.5 mg tablet (Ativan) 1 tab PO BID 02/28/22 07/17/22 Unknown History lorazepam 1 mg tablet (Ativan) 1 tab PO BEDTIME 02/28/22 07/17/22 Unknown History melatonin 5 mg capsule 2 cap PO BEDTIME 02/28/22 07/17/22 Unknown History metoprolol tartrate 50 mg tablet 50 mg PO BID 02/28/22 07/17/22 Unknown History mirtazapine 15 mg tablet 15 mg PO BEDTIME 02/28/22 07/17/22 Unknown History pantoprazole 40 mg tablet,delayed 40 mg PO DAILY@0630 02/28/22 07/17/22 Unknown History release cetirizine 10 mg tablet 10 mg PO DAILY 03/01/22 07/17/22 Unknown History docusate sodium 100 mg capsule 100 mg PO BID 03/01/22 07/17/22 Unknown History finasteride 5 mg tablet 5 mg PO DAILY 03/01/22 07/17/22 Unknown History furosemide 20 mg tablet 20 mg PO DAILY PRN fluid overload 03/01/22 07/17/22 Unknown History haloperidol 2 mg tablet 1 tab PO TID 03/01/22 07/17/22 Unknown History lorazepam 0.5 mg tablet (Ativan) 1 tab PO DAILY PRN Anxiety 03/01/22 07/17/22 Unknown History midodrine 5 mg tablet 1 tab PO TIDAC 03/01/22 07/17/22 Unknown History olanzapine 5 mg tablet (Zyprexa) 5 mg PO BID@0900,1500 03/01/22 07/17/22 Unknown History rivaroxaban 20 mg tablet (Xarelto) 20 mg PO BEDTIME 03/01/22 07/17/22 Unknown History acetaminophen 325 mg tablet 650 mg PO TID 03/28/22 07/17/22 Unknown History albuterol sulfate 2.5 mg/3 mL 2.5 mg inhalation TID PRN 03/28/22 07/17/22 Unknown History (0.083 %) solution for nebulization Shortness Of Breath azelastine 0.05 % eye drops 1 drp ophthalmic (eye) BID PRN 03/28/22 07/17/22 Unknown History Allergy Symptoms calcium carbonate 430 mg calcium 430 mg PO TID PRN Indigestion 03/28/22 07/17/22 Unknown History (1,000 mg) chewable tablet furosemide 20 mg tablet 20 mg PO DAILY 03/28/22 07/17/22 Unknown History lamotrigine 100 mg tablet 100 mg PO BEDTIME 03/28/22 07/17/22 Unknown History (Lamictal) lamotrigine 25 mg tablet (Lamictal) 25 mg PO BEDTIME 03/28/22 07/17/22 Unknown History menthol 4 % topical gel (Biofreeze 1 appl topical BID 03/28/22 07/17/22 Unknown History (menthol)) menthol 4 % topical gel (Biofreeze 1 appl topical Q2H PRN Pain (Scale 03/28/22 07/17/22 Unknown History (menthol)) Score 1-3) nitroglycerin 0.4 mg sublingual 0.4 mg sublingual Q5M PRN Chest 03/28/22 07/17/22 Unknown History tablet Pain polyvinyl alcohol 1.4 % eye drops 1 drp ophthalmic (eye) DAILY 03/28/22 07/17/22 Unknown History pseudoephedrine-guaifenesin ER 60 1 tab PO BID PRN Congestion 03/28/22 07/17/22 Unknown History mg-600 mg tablet,extend release 12hr (Mucus D) sertraline 100 mg tablet 100 mg PO DAILY 03/28/22 07/17/22 Unknown History sertraline 50 mg tablet (Zoloft) 50 mg PO DAILY 03/28/22 07/17/22 Unknown History tramadol 100 mg tablet 100 mg PO Q6H PRN Back Pain 03/28/22 07/17/22 Unknown History acetaminophen 325 mg tablet 650 mg PO DAILY PRN HEADACHE, 07/17/22 07/17/22 Unknown History VALERY > 100.4, BODY ACHES baclofen 20 mg tablet 20 mg PO BID 07/17/22 07/17/22 Unknown History budesonide-formoterol HFA 160 2 puff inhalation BID 07/17/22 07/17/22 Unknown History mcg-4.5 mcg/actuation aerosol inhaler (Symbicort) buspirone 15 mg tablet 1 tab PO TID 07/17/22 07/17/22 Unknown History mirtazapine 15 mg tablet (Remeron) 1 tab PO BEDTIME 07/17/22 07/17/22 Unknown History olanzapine 20 mg tablet (Zyprexa) 1 tab PO BEDTIME 07/17/22 07/17/22 Unknown History sennosides 8.6 mg tablet (senna) 8.6 mg PO BID 07/17/22 07/17/22 Unknown History umeclidinium 62.5 mcg/actuation 1 inh inhalation DAILY 07/17/22 07/17/22 Unknown History blister powder for inhalation (Incruse Ellipta) Physical Exam Vital Signs and Narrative: Vital Signs: Last Vital Signs Temp 98.4 F 07/18/22 20:22 Pulse 88 07/18/22 21:11 Resp 20 07/18/22 21:11 BP 99/67 07/18/22 21:11 Pulse Ox 97 07/18/22 21:11 O2 Del Method 07/18/22 21:11 O2 Flow Rate 4 07/18/22 21:11 BMI result Body Mass Index 26.9 Constitutional: Lethargic, capable of answering questions in 1-2 word responses, in no acute distress. Mental Status: Oriented to person, place and time. Eyes: Pupils are equal, round, and reactive to light. Ear, Nose, and Throat: Oropharynx clear, mucous membranes moist. Ears and nose without deformities. Trachea midline. Respiratory: Clear to auscultation bilaterally. No wheezing, rales, or rhonchi. Cardiovascular: Irregularly regular rhythm. Gastrointestinal: Abdomen firm, non-tender, distended. Normal bowel sounds. Neurologic: Pt with left-sided hemiparesis. Skin: No rashes or lesions noted. Musculoskeletal: No cyanosis or clubbing. Extremities: No edema. Psychiatric: Normal mood and affect. Results Labs 07/18/22 16:10 07/18/22 16:10 Labs: Laboratory Results - last 24 hr 07/18/22 07/18/22 07/18/22 15:49 16:10 16:10 MCV 90.5 MCH 29.5 MCHC 32.5 RDW 14.1 Plt Count 354 D MPV 9.8 Immature Gran % (Auto) 1.0 H Neut % (Auto) 66.8 Lymph % (Auto) 26.2 Crowley % (Auto) 5.6 Eos % (Auto) 0.1 Baso % (Auto) 0.3 Lymph # (Auto) 4.6 Crowley # (Auto) 1.0 Eos # (Auto) 0.0 Baso # (Auto) 0.1 Abs Immat Gran (auto) 0.17 H Absolute Neuts (auto) 11.7 H Absolute Nucleated RBC 0.000 Nucleated RBC % (auto) 0.0 PT INR Whole Blood INR Anion Gap 27 H Estim Creat Clear Calc 80.1 Estimated GFR > 60 POC Glucose 145 H Random Glucose 155 H Lactic Acid Lactic Acid F/U @ 2Hr Calcium 9.8 D Magnesium 2.2 Total Bilirubin 1.4 H Direct Bilirubin 0.4 AST 48 H ALT 24 Alkaline Phosphatase 118 H Troponin I High Sens B-Natriuretic Peptide Total Protein 7.1 Albumin 4.6 Procalcitonin 07/18/22 07/18/22 07/18/22 16:10 16:10 16:10 MCV MCH MCHC RDW Plt Count MPV Immature Gran % (Auto) Neut % (Auto) Lymph % (Auto) Crowley % (Auto) Eos % (Auto) Baso % (Auto) Lymph # (Auto) Crowley # (Auto) Eos # (Auto) Baso # (Auto) Abs Immat Gran (auto) Absolute Neuts (auto) Absolute Nucleated RBC Nucleated RBC % (auto) PT INR Whole Blood INR Cancelled Anion Gap Estim Creat Clear Calc Estimated GFR POC Glucose Random Glucose Lactic Acid 9.0 H* Lactic Acid F/U @ 2Hr Calcium Magnesium Total Bilirubin Direct Bilirubin AST ALT Alkaline Phosphatase Troponin I High Sens 16.2 D B-Natriuretic Peptide Total Protein Albumin Procalcitonin 07/18/22 07/18/22 07/18/22 16:10 16:15 19:06 MCV MCH MCHC RDW Plt Count MPV Immature Gran % (Auto) Neut % (Auto) Lymph % (Auto) Crowley % (Auto) Eos % (Auto) Baso % (Auto) Lymph # (Auto) Crowley # (Auto) Eos # (Auto) Baso # (Auto) Abs Immat Gran (auto) Absolute Neuts (auto) Absolute Nucleated RBC Nucleated RBC % (auto) PT 13.8 H INR 1.2 H Whole Blood INR Anion Gap Estim Creat Clear Calc Estimated GFR POC Glucose Random Glucose Lactic Acid Lactic Acid F/U @ 2Hr 1.9 Calcium Magnesium Total Bilirubin Direct Bilirubin AST ALT Alkaline Phosphatase Troponin I High Sens B-Natriuretic Peptide 249 H Total Protein Albumin Procalcitonin 07/18/22 19:13 MCV MCH MCHC RDW Plt Count MPV Immature Gran % (Auto) Neut % (Auto) Lymph % (Auto) Crowley % (Auto) Eos % (Auto) Baso % (Auto) Lymph # (Auto) Crowley # (Auto) Eos # (Auto) Baso # (Auto) Abs Immat Gran (auto) Absolute Neuts (auto) Absolute Nucleated RBC Nucleated RBC % (auto) PT INR Whole Blood INR Anion Gap Estim Creat Clear Calc Estimated GFR POC Glucose Random Glucose Lactic Acid Lactic Acid F/U @ 2Hr Calcium Magnesium Total Bilirubin Direct Bilirubin AST ALT Alkaline Phosphatase Troponin I High Sens B-Natriuretic Peptide Total Protein Albumin Procalcitonin 0.14 Imaging Radiologist's Impressions: Impressions Chest X-Ray 07/18/22 16:25 IMPRESSION: Cardiomegaly and increased interstitial markings. Pleural thickening. No evidence of pneumonia. 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 on 07/16/2022 for yelling at the staff, SI, increased confusion per staff, subjective fever, and burning sensation when urinating. Pt stayed in the ED for three days waiting placement. While in the ED pt went into AFib with RVR. Patient be admitted to the hospital for treatment and further evaluation of AFib with RVR and leukocytosis of unknown etiology. AFib with RVR Patient went into AFib with RVR with a heart rate over 200 on day 3 of ED stay Etiology unclear possibly due to infection or polypharmacy Patient given adenosine, Mag sulfate, Lopressor, Cardizem Continue diltiazem drip Continue Xarelto Cardiology consult Admit to telemetry Leukocytosis Patient leukocytosis of 12.5 on 07/17/2022, increased to 17.5 today Patient afebrile, procalcitonin 0.14, initial UA on 07/16/2022 negative for UTI Unclear etiology: Possibly acute infection versus dehydration Will look for source of infection CT of chest and abdomen, UA pending Will treat prophylactically with IV antibiotics pending further studies Agitation/mood disorder Patient yelling at staff throughout day and night during current stay, seemingly at baseline given behavior during previous ED visits Patient has been restless, agitated and has not been able to sleep for the past 2 days while here Patient given Haldol, Ativan, Benadryl, Zyprexa to little effect Patient currently less agitated, treat with above as necessary Elevated lactic acid, resolved Initial lactic acid 1.6 on 07/17/2022 Lactic acid measured at 9.0 on 07/18/2022, likely erroneous Patient's lactic acid 1.9 three hours later VALERIE Patient's creatinine 1.21 on 07/18/2022, up from baseline of 0.77 Possibly d/t dehydration Patient received IVF in the ED Hold off on additional IVF for now due to elevated BNP Follow BMP Elevated BNP Patient's BNP 249, up from baseline of 19 Chest x-ray shows cardiomegaly and increased interstitial markings with pleural thickening CT of chest and abdomen pending Patient without pitting edema Hold off on more IVF for now Continue home furosemide Repeat BNP tomorrow Mood disorder Continue home meds COPD Not appear to be in acute exacerbation Continue home inhalers Continue supplemental oxygen titrated to O2 >90 Monitor respiratory status History of CVA with left-sided hemiparesis Continue aspirin, statin Patient positioning q2hrs DNR/DNI Attending:?Dr. Leong DVT Prophylaxis: on Xarelto Pt will require a hospitalization of at least two nights for treatment and further evaluation of?AFib with RVR and leukocytosis of unknown etiology. Time Spent With Patient Time: Total time managing care of this patient today ____ minutes. Quality Stroke Does the patient have a stroke diagnosis?: No VTE Prior VTE?: No VTE Risk Level:: Medical - moderate - high VTE Device Contraindication: Treatment Not Indicated VTE Drug Contraindication: N/A - Med Ordered
[2022-07-18 21:33] LABS: ABG Base Excess -3.8 mmol/L; ABG HCO3 20 mmol/L (22-26); ABG pCO2 32 mmHg (32-45); ABG pH 7.39 (7.35-7.45); ABG pO2 86 mmHg (83-108)
[2022-07-19] VITALS (8 sets, daily range): BP systolic 92–125; BP diastolic 62–81; PULSE 75–113; RESP 14–20; TEMP 36.1–37.1; O2SAT 95–98; BMI 27.8
[2022-07-19 00:16] LABS: Alanine Aminotransferase 21 U/L (0-40); Albumin Level 3.8 g/dL (3.5-5.0); Alkaline Phosphatase 91 U/L (39-117); Anion Gap 14 (12-20); Aspartate Amino Transferase 39 U/L (5-37); Bilirubin Total 1.1 mg/dL (0.0-1.0); Blood Urea Nitrogen 14 mg/dL (9-16); Calcium 8.5 mg/dL (8.4-10.2); Carbon Dioxide 21 mmol/L (22-29); Chloride 108 mmol/L (96-108); Creatinine Clr Calc Pharmacy 122.8; Estimated Glomerular Filt Rate > 60; Glucose Random 110 mg/dL (60-115); Potassium 3.9 mmol/L (3.3-5.1); Sodium 139 mmol/L (135-145); Total Protein 5.8 g/dL (6.5-8.0)
[2022-07-19] MEDS: 0.9 % Sodium Chloride Flush 3 ML SYRINGE IVFLUSH ×3 (00:36→15:35)
[2022-07-19] MEDS: traMADoL HCL 50 MG TABLET 100 MG PO (01:50)
[2022-07-19 03:33] LABS: ABG Refer to POC result
[2022-07-19] MEDS: Omeprazole 20 MG CAPSULE.DR PO (06:12)
[2022-07-19 06:50] LABS: Hematocrit 41.1 % (42.0-52.0); Hemoglobin 13.3 g/dl (14.0-18.0); Mean Corpuscular HGB Conc 32.4 g/dl (31.0-36.0); Mean Corpuscular Hemoglobin 29.4 pg (27.0-33.0); Mean Corpuscular Volume 90.9 fL (80.0-98.0); Mean Platelet Volume 9.8 fL (9.4-12.4); Platelet Count 256 X10*3/uL (160-400); Red Blood Count 4.52 X10*6/uL (4.60-5.80); Red Cell Distribution Width 14.4 % (11.0-16.0); White Blood Count 12.9 X10*3/uL (4.8-10.8)
[2022-07-19 07:06] LABS: B Type Natriuretic Peptide 70 pg/mL (<100)
[2022-07-19 07:25] LABS: Anion Gap 16 (12-20); Blood Urea Nitrogen 15 mg/dL (9-16); Calcium 8.7 mg/dL (8.4-10.2); Carbon Dioxide 19 mmol/L (22-29); Chloride 107 mmol/L (96-108); Creatinine Clr Calc Pharmacy 129.3; Estimated Glomerular Filt Rate > 60; Glucose Random 108 mg/dL (60-115); Potassium 3.5 mmol/L (3.3-5.1); Sodium 138 mmol/L (135-145)
--- NOTE | 2022-07-19 07:44 | MHC.CARE ---
Note: CARE Team completed crisis assessment on 07/17/22 and follow up 07/18/22. Pt is psychiatrically cleared prior to medical admission.
[2022-07-19] MEDS: Finasteride 5 MG TABLET PO (08:07)
[2022-07-19] MEDS: Acetaminophen 325 MG TABLET 650 MG PO ×3 (08:07→20:42)
[2022-07-19] MEDS: Sertraline HCL 50 MG TABLET 150 MG PO (08:09)
[2022-07-19] MEDS: HaloperidoL 5 MG TABLET PO ×2 (08:11→15:34)
[2022-07-19] MEDS: Midodrine HCl 5 MG TABLET PO ×3 (08:12→15:33)
[2022-07-19] MEDS: busPIRone HCl 5 MG TABLET 15 MG PO ×3 (08:12→20:31)
[2022-07-19] MEDS: cloNIDine HCL 0.1 MG TABLET PO ×2 (08:14→15:33)
[2022-07-19] MEDS: HaloperidoL 1 MG TABLET 2 MG PO (08:15)
[2022-07-19] MEDS: Baclofen 20 MG TABLET PO ×2 (08:15→20:36)
[2022-07-19] MEDS: Loratadine 10 MG TABLET PO (08:17)
[2022-07-19] MEDS: Gabapentin 400 MG CAPSULE PO ×3 (08:18→20:35)
[2022-07-19] MEDS: OLANZapine 5 MG TABLET PO (08:18)
[2022-07-19] MEDS: Docusate Sodium 100 MG CAPSULE PO ×2 (08:19→20:34)
[2022-07-19] MEDS: Furosemide 20 MG TABLET PO (08:19)
[2022-07-19] MEDS: LORazepam 0.5 MG TABLET PO (08:20)
[2022-07-19] MEDS: Sennosides 8.6 MG TABLET PO ×2 (08:20→20:36)
[2022-07-19] MEDS: OLANZapine 10 MG TABLET PO ×2 (08:21→15:34)
[2022-07-19] MEDS: Metoprolol Tartrate 50 MG TABLET PO (08:21)
--- NOTE | 2022-07-19 09:28 | HO.PM.IMPN ---
Subjective Subjective Date of Service: 07/20/22 Interval History: f/u on afib with rvr HR within normal, off IV cardizem, cooperative, no SI Physical Exam Vital Signs: Vital Signs: Last Vital Signs Temp 97.0 F 07/19/22 07:44 Pulse 90 07/19/22 07:44 Resp 20 07/19/22 07:44 BP 110/77 07/19/22 07:44 Pulse Ox 98 07/19/22 07:44 O2 Del Method 07/19/22 07:44 O2 Flow Rate 2 07/19/22 07:44 BMI result Body Mass Index 27.8 Objective Data Active Medications Acetaminophen (Acetaminophen 325 Mg Tablet) 650 mg PO DAILY PRN PRN Reason: HEADACHE, VALERY > 100.4, BODY ACHES Acetaminophen (Acetaminophen 325 Mg Tablet) 650 mg PO TID [facility] Last Admin: 07/19/22 08:07 Dose: 650 mg Documented By: SHEREE Albuterol Sulfate (Albuterol Sulfate (0.083%) 2.5 Mg/3 Ml Vial.Neb) 2.5 mg INHALE TID PRN PRN Reason: Shortness Of Breath Artificial Tears (Artificial Tears 15 Ml Drops) 1 drop EYE-BOTH DAILY [facility] Last Admin: 07/19/22 08:23 Dose: Not Given Documented By: SHEREE Non-Admin Reason: Med Not Available Atorvastatin Calcium (Atorvastatin Calcium 40 Mg Tablet) 40 mg PO BEDTIME [facility] Last Admin: 07/18/22 20:45 Dose: 40 mg Documented By: JACKIE Baclofen (Baclofen 20 Mg Tablet) 20 mg PO BID [facility] Last Admin: 07/19/22 08:15 Dose: 20 mg Documented By: SHEREE Buspirone HCl (Buspirone Hcl 5 Mg Tablet) 15 mg PO TID [facility] Last Admin: 07/19/22 08:12 Dose: 15 mg Documented By: SHEREE Calcium Carbonate (Calcium Carbonate 500 Mg Tablet) 500 mg PO TID PRN PRN Reason: Indigestion Clonidine HCl (Clonidine Hcl 0.1 Mg Tablet) 0.1 mg PO TID [facility]; Protocol Last Admin: 07/19/22 08:14 Dose: 0.1 mg Documented By: SHEREE Docusate Sodium (Docusate Sodium 100 Mg Capsule) 100 mg PO BID [facility] Last Admin: 07/19/22 08:19 Dose: 100 mg Documented By: SHEREE Finasteride (Finasteride 5 Mg Tablet) 5 mg PO DAILY [facility] Last Admin: 07/19/22 08:07 Dose: 5 mg Documented By: SHEREE Comments: BARCODE RIPPED ON PACKAGING Fluticasone/Vilanterol (Fluticasone/Vilanterol 200/25 Blst.W.Dev) 1 puff INHALE RDAILY [facility] Last Admin: 07/19/22 08:08 Dose: Not Given Documented By: DARIO Non-Admin Reason: med not avail/pharm called Furosemide (Furosemide 20 Mg Tablet) 20 mg PO DAILY PRN; Protocol PRN Reason: fluid overload Furosemide (Furosemide 20 Mg Tablet) 20 mg PO DAILY [facility]; Protocol Last Admin: 07/19/22 08:19 Dose: 20 mg Documented By: SHEREE Gabapentin (Gabapentin 400 Mg Capsule) 400 mg PO TID [facility] Last Admin: 07/19/22 08:18 Dose: 400 mg Documented By: SHEREE Haloperidol (Haloperidol 5 Mg Tablet) 5 mg PO TID [facility] Last Admin: 07/19/22 08:11 Dose: 5 mg Documented By: SHEREE Diltiazem HCl 125 mg/ Sodium (Chloride) 125 mls @ 0 mls/hr IVCONT .Q0M [facility]; Protocol Last Titration: 07/18/22 20:52 Dose: 0 mg/hr, 0 mls/hr Documented By: JACKIE Lamotrigine (Lamotrigine 25 Mg Tablet) 25 mg PO BEDTIME [facility] Last Admin: 07/18/22 20:45 Dose: 25 mg Documented By: JACKIE Lamotrigine (Lamotrigine 100 Mg Tablet) 100 mg PO BEDTIME [facility] Last Admin: 07/18/22 20:45 Dose: 100 mg Documented By: JACKIE Loratadine (Loratadine 10 Mg Tablet) 10 mg PO DAILY [facility] Last Admin: 07/19/22 08:17 Dose: 10 mg Documented By: SHEREE Lorazepam (Lorazepam 1 Mg Tablet) 1 mg PO Q4H PRN PRN Reason: anxiety Last Admin: 07/17/22 17:44 Dose: 1 mg Documented By: GUMARO Lorazepam (Lorazepam 1 Mg Tablet) 1 mg PO BEDTIME [facility] Last Admin: 07/18/22 22:38 Dose: Not Given Documented By: LOURDES Non-Admin Reason: Decreased Blood Pressure Melatonin (Melatonin 3 Mg Tablet) 9 mg PO BEDTIME [facility] Last Admin: 07/18/22 22:38 Dose: Not Given Documented By: LOURDES Non-Admin Reason: Patient Asleep Metoprolol Tartrate (Metoprolol Tartrate 50 Mg Tablet) 50 mg PO BID [facility]; Protocol Last Admin: 07/19/22 08:21 Dose: 50 mg Documented By: SHEREE Midodrine (Midodrine Hcl 5 Mg Tablet) 5 mg PO TIDAC [facility] Last Admin: 07/19/22 08:12 Dose: 5 mg Documented By: SHEREE Mirtazapine (Mirtazapine 15 Mg Tablet) 15 mg PO BEDTIME [facility] Last Admin: 07/18/22 22:38 Dose: Not Given Documented By: LOURDES Non-Admin Reason: Decreased Blood Pressure Nitroglycerin (Nitroglycerin 0.4 Mg Tab.Subl) 0.4 mg SUBLINGUAL Q5M PRN PRN Reason: Chest Pain Non-Formulary Medication (Azelastine) 1 drop EYE-BOTH BID PRN PRN Reason: Allergy Symptoms Non-Formulary Medication (Umeclidinium [Incruse Ellipta]) 1 inhalation INHALE DAILY [facility] Olanzapine (Olanzapine 10 Mg Tablet) 10 mg PO TID [facility] Last Admin: 07/19/22 08:21 Dose: 10 mg Documented By: SHEREE Omeprazole (Omeprazole 20 Mg Capsule.Dr) 20 mg PO DAILY@0630 [facility] Last Admin: 07/19/22 06:12 Dose: 20 mg Documented By: TONIE Pharmacy Consult (Consult Rx Perform Med Rec) 1 each MISCELLANE ONCE PRN PRN Reason: Consult order Rivaroxaban (Rivaroxaban 20 Mg Tablet) 20 mg PO BEDTIME [facility] Last Admin: 07/18/22 20:46 Dose: 20 mg Documented By: JACKIE Senna (Sennosides 8.6 Mg Tablet) 8.6 mg PO BID [facility] Last Admin: 07/19/22 08:20 Dose: 8.6 mg Documented By: SHEREE Sertraline HCl (Sertraline Hcl 50 Mg Tablet) 150 mg PO DAILY [facility] Last Admin: 02/12/23 08:09 Dose: 150 mg Documented By: SHEREE Sodium Chloride (0.9 % Sodium Chloride Flush 3 Ml Syringe) 3 ml IVFLUSH QSHIFT [facility] Last Admin: 07/19/22 08:06 Dose: 3 ml Documented By: SHEREE Tramadol HCl (Tramadol Hcl 50 Mg Tablet) 100 mg PO Q6H PRN PRN Reason: Back Pain Last Admin: 07/19/22 01:50 Dose: 100 mg Documented By: TONIE Labs 07/19/22 06:21 07/19/22 06:21 Labs: Laboratory Results - last 24 hr 07/18/22 07/18/22 07/18/22 15:49 16:10 16:10 MCV 90.5 MCH 29.5 MCHC 32.5 RDW 14.1 Plt Count 354 D MPV 9.8 Immature Gran % (Auto) 1.0 H Neut % (Auto) 66.8 Lymph % (Auto) 26.2 Rolette % (Auto) 5.6 Eos % (Auto) 0.1 Baso % (Auto) 0.3 Lymph # (Auto) 4.6 Rolette # (Auto) 1.0 Eos # (Auto) 0.0 Baso # (Auto) 0.1 Abs Immat Gran (auto) 0.17 H Absolute Neuts (auto) 11.7 H Absolute Nucleated RBC 0.000 Nucleated RBC % (auto) 0.0 PT INR Whole Blood INR O2 Saturation ABG pH at Pt Temp ABG pCO2 at Pt Temp ABG pO2 at Pt Temp ABG HCO3 ABG Base Excess (Actual) Anion Gap 27 H Estim Creat Clear Calc 80.1 Estimated GFR > 60 POC Glucose 145 H Random Glucose 155 H Lactic Acid Lactic Acid F/U @ 2Hr Calcium 9.8 D Magnesium 2.2 Total Bilirubin 1.4 H Direct Bilirubin 0.4 AST 48 H ALT 24 Alkaline Phosphatase 118 H Troponin I High Sens B-Natriuretic Peptide Total Protein 7.1 Albumin 4.6 Procalcitonin 07/18/22 07/18/22 07/18/22 16:10 16:10 16:10 MCV MCH MCHC RDW Plt Count MPV Immature Gran % (Auto) Neut % (Auto) Lymph % (Auto) Rolette % (Auto) Eos % (Auto) Baso % (Auto) Lymph # (Auto) Rolette # (Auto) Eos # (Auto) Baso # (Auto) Abs Immat Gran (auto) Absolute Neuts (auto) Absolute Nucleated RBC Nucleated RBC % (auto) PT INR Whole Blood INR Cancelled O2 Saturation ABG pH at Pt Temp ABG pCO2 at Pt Temp ABG pO2 at Pt Temp ABG HCO3 ABG Base Excess (Actual) Anion Gap Estim Creat Clear Calc Estimated GFR POC Glucose Random Glucose Lactic Acid 9.0 H* Lactic Acid F/U @ 2Hr Calcium Magnesium Total Bilirubin Direct Bilirubin AST ALT Alkaline Phosphatase Troponin I High Sens 16.2 D B-Natriuretic Peptide Total Protein Albumin Procalcitonin 07/18/22 07/18/22 07/18/22 16:10 16:15 19:06 MCV MCH MCHC RDW Plt Count MPV Immature Gran % (Auto) Neut % (Auto) Lymph % (Auto) Rolette % (Auto) Eos % (Auto) Baso % (Auto) Lymph # (Auto) Rolette # (Auto) Eos # (Auto) Baso # (Auto) Abs Immat Gran (auto) Absolute Neuts (auto) Absolute Nucleated RBC Nucleated RBC % (auto) PT 13.8 H INR 1.2 H Whole Blood INR O2 Saturation ABG pH at Pt Temp ABG pCO2 at Pt Temp ABG pO2 at Pt Temp ABG HCO3 ABG Base Excess (Actual) Anion Gap Estim Creat Clear Calc Estimated GFR POC Glucose Random Glucose Lactic Acid Lactic Acid F/U @ 2Hr 1.9 Calcium Magnesium Total Bilirubin Direct Bilirubin AST ALT Alkaline Phosphatase Troponin I High Sens B-Natriuretic Peptide 249 H Total Protein Albumin Procalcitonin 07/18/22 07/18/22 07/18/22 19:13 21:25 23:38 MCV MCH MCHC RDW Plt Count MPV Immature Gran % (Auto) Neut % (Auto) Lymph % (Auto) Rolette % (Auto) Eos % (Auto) Baso % (Auto) Lymph # (Auto) Rolette # (Auto) Eos # (Auto) Baso # (Auto) Abs Immat Gran (auto) Absolute Neuts (auto) Absolute Nucleated RBC Nucleated RBC % (auto) PT INR Whole Blood INR O2 Saturation 96.0 ABG pH at Pt Temp 7.39 ABG pCO2 at Pt Temp 32 ABG pO2 at Pt Temp 86 ABG HCO3 20 L ABG Base Excess (Actual) -3.8 Anion Gap 14 Estim Creat Clear Calc 122.8 Estimated GFR > 60 POC Glucose Random Glucose 110 Lactic Acid Lactic Acid F/U @ 2Hr Calcium 8.5 D Magnesium Total Bilirubin 1.1 H Direct Bilirubin AST 39 H ALT 21 Alkaline Phosphatase 91 Troponin I High Sens B-Natriuretic Peptide Total Protein 5.8 L Albumin 3.8 Procalcitonin 0.14 07/19/22 07/19/22 07/19/22 06:21 06:21 06:21 MCV 90.9 MCH 29.4 MCHC 32.4 RDW 14.4 Plt Count 256 D MPV 9.8 Immature Gran % (Auto) Neut % (Auto) Lymph % (Auto) Rolette % (Auto) Eos % (Auto) Baso % (Auto) Lymph # (Auto) Rolette # (Auto) Eos # (Auto) Baso # (Auto) Abs Immat Gran (auto) Absolute Neuts (auto) Absolute Nucleated RBC 0.000 Nucleated RBC % (auto) 0.0 PT INR Whole Blood INR O2 Saturation ABG pH at Pt Temp ABG pCO2 at Pt Temp ABG pO2 at Pt Temp ABG HCO3 ABG Base Excess (Actual) Anion Gap 16 Estim Creat Clear Calc 129.3 Estimated GFR > 60 POC Glucose Random Glucose 108 Lactic Acid Lactic Acid F/U @ 2Hr Calcium 8.7 Magnesium Total Bilirubin Direct Bilirubin AST ALT Alkaline Phosphatase Troponin I High Sens B-Natriuretic Peptide 70 Total Protein Albumin Procalcitonin Assessment and Plan (1) Atrial fibrillation with rapid ventricular response: Status: Acute (2) Altered mental status: Status: Acute (3) Mood disorder as late effect of traumatic brain injury: Status: Acute Plan 57-year-old male with a PMH significant for AFib on Xarelto, CHF, COPD on supplemental oxygen, 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 Pt stayed in the ED for three days waiting placement. While in the ED pt went into AFib with RVR. Patient be admitted to the hospital for treatment and further evaluation of AFib with RVR and leukocytosis of unknown etiology. AFib with RVR..now rate controlleda off cardizem drip continue metoprolol Xarelto no indication for Cardiology eval at this time Leukocytosis--no evidence of acute infectious, follow Agitation/mood disorder---PRN Psychotropics, Psych has assessed recently Acute lactic acidosis--Not due to sepsis, probably d/t decrese cardiac output from afib withrvr Initial lactic acid 1.6 on 07/17/2022 Lactic acid measured at 9.0 on 07/18/2022, likely erroneous Patient's lactic acid 1.9 three hours later VALERIE---resolved. Mood disorder Continue home meds COPD--no acute exacerbation, inhalers PRN History of CVA with left-sided hemiparesis Continue aspirin, statin Patient positioning q2hrs DNR/DNI Attending:?Dr. Leong DVT Prophylaxis: on Xarelto Neeed for inpatient AFIB with RVR, agitations Time Spent With Patient Time: Total time managing care of this patient today ____ minutes. Quality Stroke Does the patient have a stroke diagnosis?: No VTE Prior VTE?: No VTE Risk Level:: Medical - moderate - high VTE Device Contraindication: Treatment Not Indicated VTE Drug Contraindication: N/A - Med Ordered
--- NOTE | 2022-07-19 12:10 | MHC.CM.PN ---
Addendum entered by Brenda Thornton 07/19/22 15:45: AMAURY ATTEMPTED TO CONTACT PTS DAUGHTER. NO ANSWER, VM BOX FULL Addendum entered by Brenda Thornton 07/19/22 15:39: SOO CALLED BACK REPORTING THE FOLLOWING: PT LIVES IN A [facility] AND IS DEPENDENT FOR CARE HE HAS A WHEEL CHAIR AND REBECCA LIFT THERE IS / NURSING AND EMERGENCY PLANNING AND RESPONSE MANAGER CARE IN THE HOME HCP IS INVOKED HCP: LIDYA (DTR) [phone] PCP: LIDYA ADEN UNSURE ABOUT VAX STATUS SHE REPORTS CONCERN THAT PT HAS BEEN BACK AND FORTH TO THE HOSPITAL MULTIPLE TIMES FOR AFIB SHE SAYS MED CHANGES ARE USUALLY MADE AND IT IS GOOD FOR A MONTH OR SO, AND THEN IT HAPPENS AGAIN SHE SAYS THE PT ONLY HAS THESE SEVERE BEHAVIORS WHEN HE IS UNWELL BECAUSE HE IS UNABLE TO VERBALIZE WHAT HE IS FEELING SHE IS AWARE HE WAS CLEARED BY PSYCH AND WILL NOT BE GOING TO IPLOC AT DC SHE REPORTS SHE HOPES HE CAN BE SEEN AGAIN BY PSYCH FOR A MORE EXTENSIVE EVAL SHE IS ALSO WONDERING ABOUT HIS PSYCH DIAGNOSIS DUE TO EVIDENCE OF DELUSIONS DCP TBD EXPECTED TO DC BACK TO CARE HOME VIA BLS Original Note: MESSAGE LEFT FROM SOO AT [employer] [facility] REQUESTING A CALL WITH UPDATES CM ATTEMPTED TO REACH HER TO PROVIDE UPDATES AND GATHER MORE INFO MESSAGE LEFT REQUESTING RETURN CALL SOO: [phone]
[2022-07-19] MEDS: lamoTRIgine 100 MG TABLET PO (20:32)
[2022-07-19] MEDS: lamoTRIgine 25 MG TABLET PO (20:32)
[2022-07-19] MEDS: Melatonin 3 MG TABLET 9 MG PO (20:35)
[2022-07-19] MEDS: Atorvastatin Calcium 40 MG TABLET PO (20:35)
[2022-07-19] MEDS: Rivaroxaban 20 MG TABLET PO (20:36)
[2022-07-20] VITALS (9 sets, daily range): BP systolic 85–109; BP diastolic 52–75; PULSE 64–88; RESP 16–20; TEMP 36.3–37.1; O2SAT 93–99
[2022-07-20] MEDS: 0.9 % Sodium Chloride Flush 3 ML SYRINGE IVFLUSH (00:23)
--- NOTE | 2022-07-20 05:43 | PC.NURSE ---
Patient had a 5 beat run, asymptomatic, MD notified. Slept most of shift. BP soft 90/58 beginning of shift. Turned and repositioned throughout shift. Safety maintained.
[2022-07-20] MEDS: Omeprazole 20 MG CAPSULE.DR PO (05:54)
[2022-07-20 06:06] LABS: Anion Gap 13 (12-20); Blood Urea Nitrogen 15 mg/dL (9-16); Calcium 8.5 mg/dL (8.4-10.2); Carbon Dioxide 23 mmol/L (22-29); Chloride 107 mmol/L (96-108); Estimated Glomerular Filt Rate > 60; Glucose Random 99 mg/dL (60-115); Magnesium 2.3 mg/dL (1.6-2.6); Potassium 3.4 mmol/L (3.3-5.1); Sodium 140 mmol/L (135-145)
[2022-07-20] MEDS: Finasteride 5 MG TABLET PO (08:18)
[2022-07-20] MEDS: Baclofen 20 MG TABLET PO ×2 (08:18→20:12)
[2022-07-20] MEDS: Sertraline HCL 50 MG TABLET 150 MG PO (08:18)
[2022-07-20] MEDS: Furosemide 20 MG TABLET PO (08:18)
[2022-07-20] MEDS: Gabapentin 400 MG CAPSULE PO ×3 (08:19→20:12)
[2022-07-20] MEDS: Sennosides 8.6 MG TABLET PO ×2 (08:19→20:11)
[2022-07-20] MEDS: Loratadine 10 MG TABLET PO (08:19)
[2022-07-20] MEDS: Docusate Sodium 100 MG CAPSULE PO ×2 (08:19→20:12)
[2022-07-20] MEDS: Metoprolol Tartrate 50 MG TABLET PO (08:19)
[2022-07-20] MEDS: OLANZapine 10 MG TABLET PO (08:19)
[2022-07-20] MEDS: HaloperidoL 5 MG TABLET PO (08:20)
[2022-07-20] MEDS: busPIRone HCl 5 MG TABLET 15 MG PO (08:20)
[2022-07-20] MEDS: cloNIDine HCL 0.1 MG TABLET PO (08:20)
[2022-07-20] MEDS: Midodrine HCl 5 MG TABLET PO ×3 (08:20→15:59)
[2022-07-20] MEDS: Fluticasone/Vilanterol 200/25 BLST.W.DEV 1 PUFF INHALE (08:21)
[2022-07-20] MEDS: Acetaminophen 325 MG TABLET 650 MG PO ×3 (08:31→20:11)
[2022-07-20] MEDS: traMADoL HCL 50 MG TABLET 100 MG PO ×2 (09:43→20:11)
--- NOTE | 2022-07-20 10:55 | HO.PM.IMPN ---
Subjective Subjective Date of Service: 07/20/22 Interval History: f/u on afib with rvr calm, cooperative, no agitation and wants to go back Review of Systems Chest pressure Palpitations Denies shortness of breath No abdominal pain Physical Exam Vital Signs: Vital Signs: Last Vital Signs Temp 97.6 F 07/20/22 08:00 Pulse 78 07/20/22 08:22 Resp 18 07/20/22 08:22 BP 106/71 07/20/22 08:00 Pulse Ox 96 07/20/22 08:00 O2 Del Method 07/20/22 08:00 O2 Flow Rate 2 07/20/22 08:00 BMI result Body Mass Index 27.8 Objective Data Active Medications Acetaminophen (Acetaminophen 325 Mg Tablet) 650 mg PO DAILY PRN PRN Reason: HEADACHE, VALERY > 100.4, BODY ACHES Acetaminophen (Acetaminophen 325 Mg Tablet) 650 mg PO TID [facility] Last Admin: 07/20/22 08:31 Dose: 650 mg Documented By: ARNOLD Albuterol Sulfate (Albuterol Sulfate (0.083%) 2.5 Mg/3 Ml Vial.Neb) 2.5 mg INHALE TID PRN PRN Reason: Shortness Of Breath Artificial Tears (Artificial Tears 15 Ml Drops) 1 drop EYE-BOTH DAILY [facility] Last Admin: 07/20/22 08:31 Dose: Not Given Documented By: ARNOLD Non-Admin Reason: Patient Refused Atorvastatin Calcium (Atorvastatin Calcium 40 Mg Tablet) 40 mg PO BEDTIME [facility] Last Admin: 07/19/22 20:35 Dose: 40 mg Documented By: COBBOJono Baclofen (Baclofen 20 Mg Tablet) 20 mg PO BID [facility] Last Admin: 07/20/22 08:18 Dose: 20 mg Documented By: ARNOLD Buspirone HCl (Buspirone Hcl 5 Mg Tablet) 15 mg PO TID [facility] Last Admin: 07/20/22 08:20 Dose: 15 mg Documented By: ARNOLD Calcium Carbonate (Calcium Carbonate 500 Mg Tablet) 500 mg PO TID PRN PRN Reason: Indigestion Clonidine HCl (Clonidine Hcl 0.1 Mg Tablet) 0.1 mg PO TID [facility]; Protocol Last Admin: 07/20/22 08:20 Dose: 0.1 mg Documented By: ARNOLD Docusate Sodium (Docusate Sodium 100 Mg Capsule) 100 mg PO BID [facility] Last Admin: 07/20/22 08:19 Dose: 100 mg Documented By: DAVID-MORE Finasteride (Finasteride 5 Mg Tablet) 5 mg PO DAILY [facility] Last Admin: 07/20/22 08:18 Dose: 5 mg Documented By: DAVID-MORE Fluticasone/Vilanterol (Fluticasone/Vilanterol 200/25 Blst.W.Dev) 1 puff INHALE RDAILY [facility] Last Admin: 07/20/22 08:21 Dose: 1 puff Documented By: ANA Furosemide (Furosemide 20 Mg Tablet) 20 mg PO DAILY PRN; Protocol PRN Reason: fluid overload Furosemide (Furosemide 20 Mg Tablet) 20 mg PO DAILY [facility]; Protocol Last Admin: 07/20/22 08:18 Dose: 20 mg Documented By: ARNOLD Gabapentin (Gabapentin 400 Mg Capsule) 400 mg PO TID [facility] Last Admin: 07/20/22 08:19 Dose: 400 mg Documented By: ARNOLD Haloperidol (Haloperidol 5 Mg Tablet) 5 mg PO TID [facility] Last Admin: 07/20/22 08:20 Dose: 5 mg Documented By: ARNOLD Diltiazem HCl 125 mg/ Sodium (Chloride) 125 mls @ 0 mls/hr IVCONT .Q0M [facility]; Protocol Last Titration: 07/19/22 12:06 Dose: 0 mg/hr, 0 mls/hr Documented By: SHEREE Lamotrigine (Lamotrigine 25 Mg Tablet) 25 mg PO BEDTIME [facility] Last Admin: 07/19/22 20:32 Dose: 25 mg Documented By: HUMA Lamotrigine (Lamotrigine 100 Mg Tablet) 100 mg PO BEDTIME [facility] Last Admin: 07/19/22 20:32 Dose: 100 mg Documented By: HUMA Loratadine (Loratadine 10 Mg Tablet) 10 mg PO DAILY [facility] Last Admin: 07/20/22 08:19 Dose: 10 mg Documented By: ARNOLD Lorazepam (Lorazepam 1 Mg Tablet) 1 mg PO Q4H PRN PRN Reason: anxiety Last Admin: 07/17/22 17:44 Dose: 1 mg Documented By: GUMARO Lorazepam (Lorazepam 1 Mg Tablet) 1 mg PO BEDTIME [facility] Last Admin: 07/19/22 20:35 Dose: Not Given Documented By: HUMA Non-Admin Reason: Decreased Blood Pressure Melatonin (Melatonin 3 Mg Tablet) 9 mg PO BEDTIME [facility] Last Admin: 07/19/22 20:35 Dose: 9 mg Documented By: HUMA Metoprolol Tartrate (Metoprolol Tartrate 50 Mg Tablet) 50 mg PO BID [facility]; Protocol Last Admin: 07/20/22 08:19 Dose: 50 mg Documented By: DAVID-MORE Midodrine (Midodrine Hcl 5 Mg Tablet) 5 mg PO TIDAC [facility] Last Admin: 07/20/22 08:20 Dose: 5 mg Documented By: DAVID-MORE Mirtazapine (Mirtazapine 15 Mg Tablet) 15 mg PO BEDTIME [facility] Last Admin: 07/19/22 20:38 Dose: Not Given Documented By: HUMA Non-Admin Reason: Decreased Blood Pressure Nitroglycerin (Nitroglycerin 0.4 Mg Tab.Subl) 0.4 mg SUBLINGUAL Q5M PRN PRN Reason: Chest Pain Non-Formulary Medication (Azelastine) 1 drop EYE-BOTH BID PRN PRN Reason: Allergy Symptoms Non-Formulary Medication (Umeclidinium [Incruse Ellipta]) 1 inhalation INHALE DAILY [facility] Olanzapine (Olanzapine 10 Mg Tablet) 10 mg PO TID [facility] Last Admin: 07/20/22 08:19 Dose: 10 mg Documented By: ARNODL Omeprazole (Omeprazole 20 Mg Mateus.) 20 mg PO DAILY@0630 [facility] Last Admin: 07/20/22 05:54 Dose: 20 mg Documented By: HUMA Pharmacy Consult (Consult Rx Perform Med Rec) 1 each MISCELLANE ONCE PRN PRN Reason: Consult order Rivaroxaban (Rivaroxaban 20 Mg Tablet) 20 mg PO BEDTIME [facility] Last Admin: 07/19/22 20:36 Dose: 20 mg Documented By: HUMA Senna (Sennosides 8.6 Mg Tablet) 8.6 mg PO BID [facility] Last Admin: 07/20/22 08:19 Dose: 8.6 mg Documented By: ARNOLD Sertraline HCl (Sertraline Hcl 50 Mg Tablet) 150 mg PO DAILY [facility] Last Admin: 07/20/22 08:18 Dose: 150 mg Documented By: ARNOLD Sodium Chloride (0.9 % Sodium Chloride Flush 3 Ml Syringe) 3 ml IVFLUSH QSHIFT [facility] Last Admin: 07/20/22 07:30 Dose: Not Given Documented By: ARNOLD Non-Admin Reason: See Note Tramadol HCl (Tramadol Hcl 50 Mg Tablet) 100 mg PO Q6H PRN PRN Reason: Back Pain Last Admin: 07/20/22 09:43 Dose: 100 mg Documented By: ARNOLD Labs 07/19/22 06:21 07/20/22 05:02 Labs: Laboratory Results - last 24 hr 07/20/22 05:02 Anion Gap 13 Estim Creat Clear Calc 147.0 Estimated GFR > 60 Random Glucose 99 Calcium 8.5 Magnesium 2.3 Microbiology Microbiology Results: Microbiology 07/18/22 16:10 Blood Culture - Preliminary Blood - Venous No growth after 24 hours. 07/18/22 16:10 Blood Culture - Preliminary Blood - Venous No growth after 24 hours. 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 on 07/16/2022 for yelling at the staff, SI, increased confusion per staff, subjective fever, and burning sensation when urinating. Pt stayed in the ED for three days waiting placement. While in the ED pt went into AFib with RVR. Patient be admitted to the hospital for treatment and further evaluation of AFib with RVR and leukocytosis of unknown etiology. AFib with RVR..now rate controlled off cardizem drip continue metoprolol Xarelto Leukocytosis--no evidence of acute infectious, follow Agitation/mood disorder---PRN Psychotropics, Psych has assessed recently but reconsult to assess meds again Acute lactic acidosis--Not due to sepsis, probably d/t decrese cardiac output from afib withrvr Initial lactic acid 1.6 on 07/17/2022 Lactic acid measured at 9.0 on 07/18/2022, likely erroneous Patient's lactic acid 1.9 three hours later VALERIE---resolved. Mood disorder Continue home meds COPD--no acute exacerbation, inhalers PRN History of CVA with left-sided hemiparesis Continue aspirin, statin Patient positioning q2hrs DNR/DNI Attending:?Dr. Leong DVT Prophylaxis: on Xarelto Neeed for inpatient AFIB with RVR, agitations DC back to intermediate Time Spent With Patient Time: Total time managing care of this patient today ____ minutes. Quality Stroke Does the patient have a stroke diagnosis?: No VTE Prior VTE?: No VTE Risk Level:: Medical - moderate - high VTE Device Contraindication: Treatment Not Indicated VTE Drug Contraindication: N/A - Med Ordered
--- NOTE | 2022-07-20 10:57 | MHC.CM.PN ---
Addendum entered by Imelda Paredes 07/20/22 16:38: T/W never received paperwork for discharge. DP return to 07/21/22 Addendum entered by Imelda Paredes 07/20/22 16:33: AMAURY spoke with the Pts daughter Maya. She states that the behavior when the patient has an illness is not new. She is in agreement with discharge back to the .H. She stated that she would call the [facility] to speak with them about her fathers return. Addendum entered by Imelda Paredes 07/20/22 13:13: Kerri has came to see Pt. The recommendation is for Care Team Consult. Notified and [facility] nurse Arabella of the recommendation. Arabella requested an update from nursing. The RN was provided the contact number for report. T/W requested transition paperwork from [facility] required for discharge. She stated that she would fax to the case management office fax# provided. Original Note: Per MD Patient is ready for discharge. Called the [facility] spoke with Arabella. Arabella has stated concerns re Pt returning to . She reports paranoa and fear, as well as Q2 MO re-hospitalizations for AFIB. A call was made to Patients Sister Alexandra. NO answer NO VM available(will continue to try to make contact). is aware of the push back on discharge. He has ordered a PT evaluation. A call was made to Arabella, A VM was left. She was informed of the repeat psych eval. Instructed to expect a return call after psych eval recommendations are available. She was also informed that she needs to contact the Director, Elsa Steinberg, to come in to meet with the patient. Notified CM Dir. of the situation. CM follow for discharge.
[2022-07-20] MEDS: 0.9 % Sodium Chloride 1,000 ML 999 ML IVCONT (11:56)
--- NOTE | 2022-07-20 12:58 | PC.NURSE ---
Addendum entered by Jimmy Johnson RN 07/20/22 15:13: informed of pt's low bp this afternoon Original Note: pt bp noted to be low, informed. bolus administered. pt c/o sore throat stated he had it for 3 days. informed.
--- NOTE | 2022-07-20 13:06 | PM.PSYCN ---
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 History of Afib, CVA with L Hemiparesis, COPD. Pt reportedly was experiencing SI, yelling, confusion, fever, and urinary sx of burning. Pt seen by psychiatry, Olanzapine changed to 10 mg tid, an increase of 5 mg, Clonidine initiated, Haldol increased to 5 mg tid from 2 mg tid and Keppra discontinued (Lamictal still in place). While in the ED, pt developed AFib, was medically admitted, treated and is now ready for discharge. Pt's skilled nursing is not wanting discharge, but a psychiatric admission per team. Met briefly with pt and his continuum of care manager, Veronica, due to his report of having a sore throat. Pt also beginning to eat his lunch. Pt currently reports his throat is sore, difficult to talk. He asks for mouth lozenge, which his nurse will obtain an order for. Currently, denies SI, HI. Denies perceptual alterations. Calm, alert and in no acute distress. Appropriate eye contact. Past Psychiatric History: h/o TBI. intermittent agitation. Medical Evaluation Reviewed: Yes Review of Systems Reports sore throat PMFSH Medical History Afib Anxiety disorder CHF (congestive heart failure) Cognitive disorder COPD (chronic obstructive pulmonary disease) CVA (cerebrovascular accident) Traumatic brain injury Diagnostics Vital Signs (24Hr): Vital Signs - 24 hr 07/19/22 15:29 07/19/22 19:23 07/19/22 23:37 Temperature 97.4 F 98.7 F 97.5 F Pulse Rate 77 104 H 75 Respiratory Rate 20 18 16 Blood Pressure 103/66 99/70 92/63 Pulse Oximetry 95 98 95 Oxygen Delivery Method Nasal Cannula Room Air Nasal Cannula Oxygen Flow Rate 2 2 07/20/22 03:30 07/20/22 08:00 02/13/23 08:22 Temperature 97.3 F 97.6 F Pulse Rate 78 82 78 Respiratory Rate 16 20 18 Blood Pressure 109/75 106/71 Pulse Oximetry 99 96 Oxygen Delivery Method Nasal Cannula Nasal Cannula Oxygen Flow Rate 2 2 07/20/22 11:40 07/20/22 13:00 Temperature 98.1 F Pulse Rate 74 Respiratory Rate 20 Blood Pressure 85/57 L 100/52 L Pulse Oximetry 95 Oxygen Delivery Method Nasal Cannula Oxygen Flow Rate 2 BMI result Body Mass Index 27.8 Labs 07/19/22 06:21 07/20/22 05:02 Labs: Laboratory Results - last 48 hr 07/18/22 07/18/22 07/18/22 15:49 16:10 16:10 WBC 17.5 H RBC 5.16 Hgb 15.2 Hct 46.7 MCV 90.5 MCH 29.5 MCHC 32.5 RDW 14.1 Plt Count 354 D MPV 9.8 Immature Gran % (Auto) 1.0 H Neut % (Auto) 66.8 Lymph % (Auto) 26.2 Cascade % (Auto) 5.6 Eos % (Auto) 0.1 Baso % (Auto) 0.3 Lymph # (Auto) 4.6 Cascade # (Auto) 1.0 Eos # (Auto) 0.0 Baso # (Auto) 0.1 Abs Immat Gran (auto) 0.17 H Absolute Neuts (auto) 11.7 H Absolute Nucleated RBC 0.000 Nucleated RBC % (auto) 0.0 PT INR Whole Blood INR O2 Saturation ABG pH at Pt Temp ABG pCO2 at Pt Temp ABG pO2 at Pt Temp ABG HCO3 ABG Base Excess (Actual) Sodium 140 Potassium 4.2 Chloride 103 Carbon Dioxide 14 L Anion Gap 27 H BUN 16 Creatinine 1.21 Estim Creat Clear Calc 80.1 Estimated GFR > 60 POC Glucose 145 H Random Glucose 155 H Lactic Acid Lactic Acid F/U @ 2Hr Calcium 9.8 D Magnesium 2.2 Total Bilirubin 1.4 H Direct Bilirubin 0.4 AST 48 H ALT 24 Alkaline Phosphatase 118 H Troponin I High Sens B-Natriuretic Peptide Total Protein 7.1 Albumin 4.6 Procalcitonin 07/18/22 07/18/22 07/18/22 16:10 16:10 16:10 WBC RBC Hgb Hct MCV MCH MCHC RDW Plt Count MPV Immature Gran % (Auto) Neut % (Auto) Lymph % (Auto) Cascade % (Auto) Eos % (Auto) Baso % (Auto) Lymph # (Auto) Cascade # (Auto) Eos # (Auto) Baso # (Auto) Abs Immat Gran (auto) Absolute Neuts (auto) Absolute Nucleated RBC Nucleated RBC % (auto) PT INR Whole Blood INR Cancelled O2 Saturation ABG pH at Pt Temp ABG pCO2 at Pt Temp ABG pO2 at Pt Temp ABG HCO3 ABG Base Excess (Actual) Sodium Potassium Chloride Carbon Dioxide Anion Gap BUN Creatinine Estim Creat Clear Calc Estimated GFR POC Glucose Random Glucose Lactic Acid 9.0 H* Lactic Acid F/U @ 2Hr Calcium Magnesium Total Bilirubin Direct Bilirubin AST ALT Alkaline Phosphatase Troponin I High Sens 16.2 D B-Natriuretic Peptide Total Protein Albumin Procalcitonin 07/18/22 07/18/22 07/18/22 16:10 16:15 19:06 WBC RBC Hgb Hct MCV MCH MCHC RDW Plt Count MPV Immature Gran % (Auto) Neut % (Auto) Lymph % (Auto) Cascade % (Auto) Eos % (Auto) Baso % (Auto) Lymph # (Auto) Cascade # (Auto) Eos # (Auto) Baso # (Auto) Abs Immat Gran (auto) Absolute Neuts (auto) Absolute Nucleated RBC Nucleated RBC % (auto) PT 13.8 H INR 1.2 H Whole Blood INR O2 Saturation ABG pH at Pt Temp ABG pCO2 at Pt Temp ABG pO2 at Pt Temp ABG HCO3 ABG Base Excess (Actual) Sodium Potassium Chloride Carbon Dioxide Anion Gap BUN Creatinine Estim Creat Clear Calc Estimated GFR POC Glucose Random Glucose Lactic Acid Lactic Acid F/U @ 2Hr 1.9 Calcium Magnesium Total Bilirubin Direct Bilirubin AST ALT Alkaline Phosphatase Troponin I High Sens B-Natriuretic Peptide 249 H Total Protein Albumin Procalcitonin 07/18/22 07/18/22 07/18/22 19:13 21:25 23:38 WBC RBC Hgb Hct MCV MCH MCHC RDW Plt Count MPV Immature Gran % (Auto) Neut % (Auto) Lymph % (Auto) Cascade % (Auto) Eos % (Auto) Baso % (Auto) Lymph # (Auto) Cascade # (Auto) Eos # (Auto) Baso # (Auto) Abs Immat Gran (auto) Absolute Neuts (auto) Absolute Nucleated RBC Nucleated RBC % (auto) PT INR Whole Blood INR O2 Saturation 96.0 ABG pH at Pt Temp 7.39 ABG pCO2 at Pt Temp 32 ABG pO2 at Pt Temp 86 ABG HCO3 20 L ABG Base Excess (Actual) -3.8 Sodium 139 Potassium 3.9 Chloride 108 Carbon Dioxide 21 L Anion Gap 14 BUN 14 Creatinine 0.79 Estim Creat Clear Calc 122.8 Estimated GFR > 60 POC Glucose Random Glucose 110 Lactic Acid Lactic Acid F/U @ 2Hr Calcium 8.5 D Magnesium Total Bilirubin 1.1 H Direct Bilirubin AST 39 H ALT 21 Alkaline Phosphatase 91 Troponin I High Sens B-Natriuretic Peptide Total Protein 5.8 L Albumin 3.8 Procalcitonin 0.14 07/19/22 07/19/22 07/19/22 06:21 06:21 06:21 WBC 12.9 H RBC 4.52 L Hgb 13.3 L Hct 41.1 L MCV 90.9 MCH 29.4 MCHC 32.4 RDW 14.4 Plt Count 256 D MPV 9.8 Immature Gran % (Auto) Neut % (Auto) Lymph % (Auto) Cascade % (Auto) Eos % (Auto) Baso % (Auto) Lymph # (Auto) Cascade # (Auto) Eos # (Auto) Baso # (Auto) Abs Immat Gran (auto) Absolute Neuts (auto) Absolute Nucleated RBC 0.000 Nucleated RBC % (auto) 0.0 PT INR Whole Blood INR O2 Saturation ABG pH at Pt Temp ABG pCO2 at Pt Temp ABG pO2 at Pt Temp ABG HCO3 ABG Base Excess (Actual) Sodium 138 Potassium 3.5 Chloride 107 Carbon Dioxide 19 L Anion Gap 16 BUN 15 Creatinine 0.75 Estim Creat Clear Calc 129.3 Estimated GFR > 60 POC Glucose Random Glucose 108 Lactic Acid Lactic Acid F/U @ 2Hr Calcium 8.7 Magnesium Total Bilirubin Direct Bilirubin AST ALT Alkaline Phosphatase Troponin I High Sens B-Natriuretic Peptide 70 Total Protein Albumin Procalcitonin 07/20/22 05:02 WBC RBC Hgb Hct MCV MCH MCHC RDW Plt Count MPV Immature Gran % (Auto) Neut % (Auto) Lymph % (Auto) Cascade % (Auto) Eos % (Auto) Baso % (Auto) Lymph # (Auto) Cascade # (Auto) Eos # (Auto) Baso # (Auto) Abs Immat Gran (auto) Absolute Neuts (auto) Absolute Nucleated RBC Nucleated RBC % (auto) PT INR Whole Blood INR O2 Saturation ABG pH at Pt Temp ABG pCO2 at Pt Temp ABG pO2 at Pt Temp ABG HCO3 ABG Base Excess (Actual) Sodium 140 Potassium 3.4 Chloride 107 Carbon Dioxide 23 Anion Gap 13 BUN 15 Creatinine 0.66 Estim Creat Clear Calc 147.0 Estimated GFR > 60 POC Glucose Random Glucose 99 Lactic Acid Lactic Acid F/U @ 2Hr Calcium 8.5 Magnesium 2.3 Total Bilirubin Direct Bilirubin AST ALT Alkaline Phosphatase Troponin I High Sens B-Natriuretic Peptide Total Protein Albumin Procalcitonin Imaging Radiology Impressions: ITS Impressions Chest X-Ray 07/18/22 16:25 IMPRESSION: Cardiomegaly and increased interstitial markings. Pleural thickening. No evidence of pneumonia. Abdomen/Pelvis CT 07/18/22 22:26 IMPRESSION: Chronic appearing changes similar to the 03/21/2022 study. I do not appreciate any acute intra-abdominal process. Chest CT 07/18/22 22:26 IMPRESSION: Chronic appearing changes similar to the 03/21/2022 study. I do not appreciate any acute intra-abdominal process. Mental Status Exam Mental Status Exam Patient Appearance: Appropriate Patient Orientation: Person, Place and Situation Level of Consciousness: Alert Patient Behavior: Appropriate, Cooperative and Good Eye Contact Mood Description: Calm and Appropriate Affect Description: Calm and Appropriate Patient Cognition Impaired: Yes Speech Pattern: Spontaneous Speech and Soft-Spoken Hallucinations: None Delusions: Not Present Thought Process: Slowed Thinking Thought Content: positive for Suicidal Ideation (denies) and positive for Homicidal Ideation (denies) Judgement: Fair Medications Medications Current Medications Acetaminophen (Acetaminophen 325 Mg Tablet) 650 mg PO DAILY PRN PRN Reason: HEADACHE, VALERY > 100.4, BODY ACHES Acetaminophen (Acetaminophen 325 Mg Tablet) 650 mg PO TID [facility] Last Admin: 07/20/22 08:31 Dose: 650 mg Albuterol Sulfate (Albuterol Sulfate (0.083%) 2.5 Mg/3 Ml Vial.Neb) 2.5 mg INHALE TID PRN PRN Reason: Shortness Of Breath Artificial Tears (Artificial Tears 15 Ml Drops) 1 drop EYE-BOTH DAILY [facility] Last Admin: 07/20/22 08:31 Dose: Not Given Atorvastatin Calcium (Atorvastatin Calcium 40 Mg Tablet) 40 mg PO BEDTIME [facility] Last Admin: 02/12/23 20:35 Dose: 40 mg Baclofen (Baclofen 20 Mg Tablet) 20 mg PO BID [facility] Last Admin: 07/20/22 08:18 Dose: 20 mg Buspirone HCl (Buspirone Hcl 5 Mg Tablet) 15 mg PO TID [facility] Last Admin: 07/20/22 08:20 Dose: 15 mg Calcium Carbonate (Calcium Carbonate 500 Mg Tablet) 500 mg PO TID PRN PRN Reason: Indigestion Clonidine HCl (Clonidine Hcl 0.1 Mg Tablet) 0.1 mg PO TID [facility]; Protocol Last Admin: 07/20/22 08:20 Dose: 0.1 mg Docusate Sodium (Docusate Sodium 100 Mg Capsule) 100 mg PO BID [facility] Last Admin: 07/20/22 08:19 Dose: 100 mg Finasteride (Finasteride 5 Mg Tablet) 5 mg PO DAILY [facility] Last Admin: 07/20/22 08:18 Dose: 5 mg Fluticasone/Vilanterol (Fluticasone/Vilanterol 200/25 Blst.W.Dev) 1 puff INHALE RDAILY [facility] Last Admin: 07/20/22 08:21 Dose: 1 puff Furosemide (Furosemide 20 Mg Tablet) 20 mg PO DAILY PRN; Protocol PRN Reason: fluid overload Furosemide (Furosemide 20 Mg Tablet) 20 mg PO DAILY [facility]; Protocol Last Admin: 07/20/22 08:18 Dose: 20 mg Gabapentin (Gabapentin 400 Mg Capsule) 400 mg PO TID [facility] Last Admin: 07/20/22 08:19 Dose: 400 mg Haloperidol (Haloperidol 5 Mg Tablet) 5 mg PO TID [facility] Last Admin: 07/20/22 08:20 Dose: 5 mg Diltiazem HCl 125 mg/ Sodium (Chloride) 125 mls @ 0 mls/hr IVCONT .Q0M [facility]; Protocol Last Titration: 07/19/22 12:06 Dose: Infused Lamotrigine (Lamotrigine 25 Mg Tablet) 25 mg PO BEDTIME [facility] Last Admin: 07/19/22 20:32 Dose: 25 mg Lamotrigine (Lamotrigine 100 Mg Tablet) 100 mg PO BEDTIME [facility] Last Admin: 07/19/22 20:32 Dose: 100 mg Loratadine (Loratadine 10 Mg Tablet) 10 mg PO DAILY [facility] Last Admin: 07/20/22 08:19 Dose: 10 mg Lorazepam (Lorazepam 1 Mg Tablet) 1 mg PO Q4H PRN PRN Reason: anxiety Last Admin: 07/17/22 17:44 Dose: 1 mg Lorazepam (Lorazepam 1 Mg Tablet) 1 mg PO BEDTIME [facility] Last Admin: 07/19/22 20:35 Dose: Not Given Melatonin (Melatonin 3 Mg Tablet) 9 mg PO BEDTIME [facility] Last Admin: 07/19/22 20:35 Dose: 9 mg Metoprolol Tartrate (Metoprolol Tartrate 50 Mg Tablet) 50 mg PO BID [facility]; Protocol Last Admin: 07/20/22 08:19 Dose: 50 mg Midodrine (Midodrine Hcl 5 Mg Tablet) 5 mg PO TIDAC [facility] Last Admin: 07/20/22 11:56 Dose: 5 mg Mirtazapine (Mirtazapine 15 Mg Tablet) 15 mg PO BEDTIME [facility] Last Admin: 07/19/22 20:38 Dose: Not Given Nitroglycerin (Nitroglycerin 0.4 Mg Tab.Subl) 0.4 mg SUBLINGUAL Q5M PRN PRN Reason: Chest Pain Non-Formulary Medication (Azelastine) 1 drop EYE-BOTH BID PRN PRN Reason: Allergy Symptoms Non-Formulary Medication (Umeclidinium [Incruse Ellipta]) 1 inhalation INHALE DAILY [facility] Olanzapine (Olanzapine 10 Mg Tablet) 10 mg PO TID [facility] Last Admin: 07/20/22 08:19 Dose: 10 mg Omeprazole (Omeprazole 20 Mg Capsule.Dr) 20 mg PO DAILY@0630 [facility] Last Admin: 07/20/22 05:54 Dose: 20 mg Pharmacy Consult (Consult Rx Perform Med Rec) 1 each MISCELLANE ONCE PRN PRN Reason: Consult order Rivaroxaban (Rivaroxaban 20 Mg Tablet) 20 mg PO BEDTIME [facility] Last Admin: 07/19/22 20:36 Dose: 20 mg Senna (Sennosides 8.6 Mg Tablet) 8.6 mg PO BID [facility] Last Admin: 07/20/22 08:19 Dose: 8.6 mg Sertraline HCl (Sertraline Hcl 50 Mg Tablet) 150 mg PO DAILY [facility] Last Admin: 07/20/22 08:18 Dose: 150 mg Sodium Chloride (0.9 % Sodium Chloride Flush 3 Ml Syringe) 3 ml IVFLUSH QSHIFT [facility] Last Admin: 07/20/22 07:30 Dose: Not Given Tramadol HCl (Tramadol Hcl 50 Mg Tablet) 100 mg PO Q6H PRN PRN Reason: Back Pain Last Admin: 07/20/22 09:43 Dose: 100 mg Allergies Allergies Allergy/AdvReac Type Severity Reaction Status Date / Time No Known Allergies Allergy Verified 12/15/21 14:53 Assessment & Plan Assessment & Plan (1) Mood disorder as late effect of traumatic brain injury: Status: Acute Code(s): F06.30 - Mood disorder due to known physiological condition, unspecified; S06.9XAS - Unspecified intracranial injury with loss of consciousness status unknown, sequela Plan 57 yo male, hx of TBI with resulting mood disorder to ER on 07/16 with behavioral dyscontrol-yelling, verbalizing SI, confusion, fever, reports of urinary burning, who developed AFib and was medically admitted. Olanzapine and Haldol were titrated. Clonidine was introduced. Keppra was discontinued. Team reports pt's behavior has stabilized and he is prepared for discharge. They report his skilled nursing does not want him to return at this time. Medical sx resolved per team. Pt alert, oriented, appears in no acute distress, denies SI, HI, denies sx of psychosis without evidence of sx. Plan: 1. Continue current regime at this time, no changes suggested at this time. 2. If skilled nursing continues to decline pt to return home, consider level of care assessment for further in patient care. Total time managing care of this patient today 30 minutes. Informed Consent: understands
--- NOTE | 2022-07-20 15:34 | MHC.CARE ---
Pt does not require an additional?crisis evaluation at this time. Pt was assessed by the CARE Team on 07/17/22 and 07/18/22 and cleared from needing IPLOC. Pt was additionally assessed by psychiatry on 07/17/22 and medication changes were made.? Psychiatry was re-consulted? on 07/20/22 and recommendation was to consult the care team. Pt is not presenting in an acute crisis, requiring an additional?assessment. There is no clear goal for a psychiatric admission at this time as Pt was seen by psychiatry and medication changes have been made. Pts mood disorder is congruent with TBI diagnosis.? CARE Team recommends outpatient follow up with current providers, additionally Pt may benefit from a behavioral plan, guardianship and neurology. CARE Team reviewed recommendations Dr. Lockhart If halfway declines to take Pt back, CARE Team recommend [facility] complaint filed by case management.
[2022-07-20] MEDS: 0.9 % Sodium Chloride 1,000 ML 100 ML IVCONT (15:59)
[2022-07-20] MEDS: LORazepam 1 MG TABLET PO (17:39)
[2022-07-20] MEDS: Melatonin 3 MG TABLET 9 MG PO (20:10)
[2022-07-20] MEDS: Atorvastatin Calcium 40 MG TABLET PO (20:10)
[2022-07-20] MEDS: lamoTRIgine 100 MG TABLET PO (20:10)
[2022-07-20] MEDS: lamoTRIgine 25 MG TABLET PO (20:11)
[2022-07-20] MEDS: Rivaroxaban 20 MG TABLET PO (20:12)
[2022-07-21] MEDS: 0.9 % Sodium Chloride 1,000 ML 100 ML IVCONT (02:07)
[2022-07-21 03:59] VITALS: BP 120/80; PULSE 88; RESP 20; TEMP 36.6; O2SAT 93
[2022-07-21] MEDS: traMADoL HCL 50 MG TABLET 100 MG PO (04:22)
[2022-07-21] MEDS: LORazepam 1 MG TABLET PO ×4 (06:08→22:09)
[2022-07-21] MEDS: Omeprazole 20 MG CAPSULE.DR PO (06:08)
[2022-07-21 07:35] VITALS: BP 139/77; PULSE 85; RESP 20; TEMP 36; O2SAT 94
--- NOTE | 2022-07-21 08:38 | MHC.CDI.CONC ---
CDI Concurrent Query Documentation Clarification: PHYSICIAN'S DOCUMENTATION REQUEST Date of Query: 07/21/22 0838 Patient Name: Angel Wright Admit Date: 07/18/22 Dear Doctor, A review of the medical record indicates additional documentation may be needed. Please review below and update the documentation accordingly. Clinical Indicators: Risk Factors/Clinical Indicators/Treatments PMH: Congestive heart failure Home med: Furosemide BNP 249 up from 19. Please provide further specificity regarding the most likely type and acuity of CHF you are evaluating, treating, or monitoring. Examples include: Type: Systolic Diastolic Combined Systolic/Diastolic Acuity: Chronic Acute on chronic Other Unable to determine Use of terms such as suspected, likely, concern for, or probable (associated with a specific diagnosis that is being evaluated, monitored, or treated as if it exists) are acceptable and can be coded in the inpatient setting, when documented at the time of discharge. Thank you, Renae Catherine [facility], CDIS Extension: [phone] Please use your independent medical judgment in providing your response. THIS QUERY IS PART OF THE PERMANENT MEDICAL RECORD Provider Response: Other Other Diagnosis: unspecified chf
[2022-07-21 08:59] VITALS: PULSE 87; RESP 16; O2SAT 95
[2022-07-21] MEDS: Fluticasone/Vilanterol 200/25 BLST.W.DEV 1 PUFF INHALE (08:59)
[2022-07-21] MEDS: cloNIDine HCL 0.1 MG TABLET PO ×3 (09:24→22:09)
[2022-07-21] MEDS: Baclofen 20 MG TABLET PO ×2 (09:24→22:11)
[2022-07-21] MEDS: Finasteride 5 MG TABLET PO (09:24)
[2022-07-21] MEDS: Acetaminophen 325 MG TABLET 650 MG PO ×4 (09:24→22:09)
[2022-07-21] MEDS: HaloperidoL 5 MG TABLET PO ×3 (09:25→22:10)
[2022-07-21] MEDS: Loratadine 10 MG TABLET PO (09:25)
[2022-07-21] MEDS: Metoprolol Tartrate 50 MG TABLET PO ×2 (09:25→22:10)
[2022-07-21] MEDS: OLANZapine 10 MG TABLET PO ×2 (09:25→15:59)
[2022-07-21] MEDS: Gabapentin 400 MG CAPSULE PO ×3 (09:25→22:09)
[2022-07-21] MEDS: Midodrine HCl 5 MG TABLET PO ×2 (09:26→15:59)
[2022-07-21] MEDS: Sertraline HCL 100 MG TABLET PO (09:26)
[2022-07-21] MEDS: Furosemide 20 MG TABLET PO (09:26)
[2022-07-21] MEDS: 0.9 % Sodium Chloride Flush 3 ML SYRINGE IVFLUSH ×2 (09:28→17:06)
[2022-07-21] MEDS: Artificial Tears 15 ML DROPS 1 DROP EYE-BOTH (10:28)
[2022-07-21 11:35] VITALS: BP 107/57; PULSE 66; RESP 20; TEMP 36.2; O2SAT 94
--- NOTE | 2022-07-21 15:11 | MHC.CM.PN ---
CM SPOKE WITH [facility] CH[facility]STENS[facility] WHO STATES PT IS NOT ABLE TO RETURN UNTIL A MEETING/CONFERENCE WITH THE [facility] ([facility]) HAPPENS WITH THE TEAM HERE (INCLUDING MD AND PSYCH (OR WHATEVER CLINICIAN THAT HAS BEEN WORKING WITH HIM) MESSAGE SENT TO BOTH PSYCH AND CARE TEAM TO ASSIST IN COORDINATING THIS MEETING. AWAITING CLARIFICATION TO WHO WILL BE ABLE TO COORDINATE THIS. (FERMIN MADE AWARE ) CM WILL CONTINUE TO FOLLOW.
[2022-07-21 15:58] VITALS: BP 127/73; PULSE 74; RESP 17; TEMP 36.5; O2SAT 94
[2022-07-21 20:00] VITALS: BP 119/79; PULSE 96; RESP 17; TEMP 36.8; O2SAT 95
[2022-07-21] MEDS: Melatonin 3 MG TABLET 9 MG PO (22:10)
[2022-07-21] MEDS: Mirtazapine 15 MG TABLET PO (22:11)
[2022-07-21] MEDS: Rivaroxaban 20 MG TABLET PO (22:11)
[2022-07-22 07:02] VITALS: BP 120/66; PULSE 65; RESP 18; TEMP 36.2; O2SAT 96
[2022-07-22] MEDS: Fluticasone/Vilanterol 200/25 BLST.W.DEV 1 PUFF INHALE (08:03)
[2022-07-22 08:04] VITALS: PULSE 74; RESP 16; O2SAT 93
[2022-07-22] MEDS: Finasteride 5 MG TABLET PO (11:19)
[2022-07-22] MEDS: Sennosides 8.6 MG TABLET PO (11:19)
[2022-07-22] MEDS: Loratadine 10 MG TABLET PO (11:19)
[2022-07-22] MEDS: Sertraline HCL 100 MG TABLET PO (11:20)
[2022-07-22] MEDS: HaloperidoL 5 MG TABLET PO ×3 (11:20→21:13)
[2022-07-22] MEDS: Baclofen 20 MG TABLET PO ×2 (11:20→21:13)
[2022-07-22] MEDS: Acetaminophen 325 MG TABLET 650 MG PO ×3 (11:20→21:13)
[2022-07-22] MEDS: cloNIDine HCL 0.1 MG TABLET PO ×3 (11:20→21:11)
[2022-07-22] MEDS: OLANZapine 10 MG TABLET PO ×3 (11:20→21:13)
[2022-07-22] MEDS: Furosemide 20 MG TABLET PO (11:20)
[2022-07-22] MEDS: Gabapentin 400 MG CAPSULE PO ×3 (11:21→21:11)
[2022-07-22] MEDS: 0.9 % Sodium Chloride Flush 3 ML SYRINGE IVFLUSH ×2 (11:21→15:59)
[2022-07-22] MEDS: Midodrine HCl 5 MG TABLET PO ×3 (11:21→16:00)
[2022-07-22] MEDS: LORazepam 1 MG TABLET PO ×2 (11:41→21:12)
[2022-07-22 12:00] VITALS: BP 125/70; PULSE 70; RESP 18; TEMP 36.7; O2SAT 98
--- NOTE | 2022-07-22 13:19 | P.PNIM_ITS ---
Subjective Subjective Date of Service: 07/23/22 Interval History: was admitted for afib that is now rate controlled. calm, cooperative, no agitation and wants to go back to the home Review of Systems Chest pressure Palpitations Denies shortness of breath No abdominal pain Physical Exam Vital Signs: Vital Signs: Last Vital Signs Temp 98.0 F 07/22/22 12:00 Pulse 70 07/22/22 12:00 Resp 18 07/22/22 12:00 BP 125/70 07/22/22 12:00 Pulse Ox 98 07/22/22 12:00 O2 Del Method 07/22/22 12:00 O2 Flow Rate 2 07/22/22 07:02 BMI result Body Mass Index 27.8 Objective Data Active Medications Acetaminophen (Acetaminophen 325 Mg Tablet) 650 mg PO DAILY PRN PRN Reason: HEADACHE, VALERY > 100.4, BODY ACHES Last Admin: 07/21/22 10:25 Dose: 650 mg Documented By: FELY Acetaminophen (Acetaminophen 325 Mg Tablet) 650 mg PO TID [facility] Last Admin: 07/22/22 11:20 Dose: 650 mg Documented By: ANABELLE Albuterol Sulfate (Albuterol Sulfate (0.083%) 2.5 Mg/3 Ml Vial.Neb) 2.5 mg INHALE TID PRN PRN Reason: Shortness Of Breath Artificial Tears (Artificial Tears 15 Ml Drops) 1 drop EYE-BOTH DAILY [facility] Last Admin: 07/22/22 11:45 Dose: Not Given Documented By: ANABELLE Non-Admin Reason: Patient Refused Atorvastatin Calcium (Atorvastatin Calcium 40 Mg Tablet) 40 mg PO BEDTIME [facility] Last Admin: 07/21/22 22:14 Dose: Not Given Documented By: CHRISTOPHER Non-Admin Reason: Patient Refused Baclofen (Baclofen 20 Mg Tablet) 20 mg PO BID [facility] Last Admin: 07/22/22 11:20 Dose: 20 mg Documented By: ANABELLE Calcium Carbonate (Calcium Carbonate 500 Mg Tablet) 500 mg PO TID PRN PRN Reason: Indigestion Clonidine HCl (Clonidine Hcl 0.1 Mg Tablet) 0.1 mg PO TID [facility]; Protocol Last Admin: 07/22/22 11:20 Dose: 0.1 mg Documented By: ANABELLE Docusate Sodium (Docusate Sodium 100 Mg Capsule) 100 mg PO BID [facility] Last Admin: 07/22/22 11:21 Dose: Not Given Documented By: ANABELLE Non-Admin Reason: Patient Condition Contraindication Finasteride (Finasteride 5 Mg Tablet) 5 mg PO DAILY [facility] Last Admin: 07/22/22 11:19 Dose: 5 mg Documented By: ANABELLE Fluticasone/Vilanterol (Fluticasone/Vilanterol 200/25 Blst.W.Dev) 1 puff INHALE RDAILY [facility] Last Admin: 07/22/22 08:03 Dose: 1 puff Documented By: JOSE MARTIN Furosemide (Furosemide 20 Mg Tablet) 20 mg PO DAILY PRN; Protocol PRN Reason: fluid overload Furosemide (Furosemide 20 Mg Tablet) 20 mg PO DAILY [facility]; Protocol Last Admin: 07/22/22 11:20 Dose: 20 mg Documented By: ANABELLE Gabapentin (Gabapentin 400 Mg Capsule) 400 mg PO TID [facility] Last Admin: 07/22/22 11:21 Dose: 400 mg Documented By: ANABELLE Haloperidol (Haloperidol 5 Mg Tablet) 5 mg PO TID [facility] Last Admin: 07/22/22 11:20 Dose: 5 mg Documented By: ANABELLE Diltiazem HCl 125 mg/ Sodium (Chloride) 125 mls @ 0 mls/hr IVCONT .Q0M [facility]; Protocol Last Titration: 07/19/22 12:06 Dose: 0 mg/hr, 0 mls/hr Documented By: SHEREE Lamotrigine (Lamotrigine 25 Mg Tablet) 25 mg PO BEDTIME [facility] Last Admin: 07/21/22 22:15 Dose: Not Given Documented By: CHRISTOPHER Non-Admin Reason: Patient Refused Lamotrigine (Lamotrigine 100 Mg Tablet) 100 mg PO BEDTIME [facility] Last Admin: 07/21/22 22:15 Dose: Not Given Documented By: CHRISTOPHER Non-Admin Reason: Patient Refused Loratadine (Loratadine 10 Mg Tablet) 10 mg PO DAILY [facility] Last Admin: 07/22/22 11:19 Dose: 10 mg Documented By: ANABELLE Lorazepam (Lorazepam 1 Mg Tablet) 1 mg PO Q4H PRN PRN Reason: anxiety Last Admin: 07/22/22 11:41 Dose: 1 mg Documented By: ANABELLE Lorazepam (Lorazepam 1 Mg Tablet) 1 mg PO BEDTIME [facility] Last Admin: 07/21/22 22:09 Dose: 1 mg Documented By: CHRISTOPHER Melatonin (Melatonin 3 Mg Tablet) 9 mg PO BEDTIME [facility] Last Admin: 07/21/22 22:10 Dose: 9 mg Documented By: CHRISTOPHER Metoprolol Tartrate (Metoprolol Tartrate 50 Mg Tablet) 50 mg PO BID [facility]; Protocol Last Admin: 07/22/22 11:22 Dose: Not Given Documented By: ANABELLE Non-Admin Reason: HR 56 Midodrine (Midodrine Hcl 5 Mg Tablet) 5 mg PO TIDAC [facility] Last Admin: 07/22/22 11:46 Dose: 5 mg Documented By: ANABELLE Mirtazapine (Mirtazapine 15 Mg Tablet) 15 mg PO BEDTIME [facility] Last Admin: 07/21/22 22:11 Dose: 15 mg Documented By: CHRISTOPHER Nitroglycerin (Nitroglycerin 0.4 Mg Tab.Subl) 0.4 mg SUBLINGUAL Q5M PRN PRN Reason: Chest Pain Non-Formulary Medication (Azelastine) 1 drop EYE-BOTH BID PRN PRN Reason: Allergy Symptoms Non-Formulary Medication (Umeclidinium [Incruse Ellipta]) 1 inhalation INHALE DAILY [facility] Olanzapine (Olanzapine 10 Mg Tablet) 10 mg PO TID [facility] Last Admin: 07/22/22 11:20 Dose: 10 mg Documented By: ANABELLE Omeprazole (Omeprazole 20 Mg Capsule.Dr) 20 mg PO DAILY@0630 [facility] Last Admin: 07/22/22 05:59 Dose: Not Given Documented By: CHRISTOPHER Non-Admin Reason: Patient Refused Pharmacy Consult (Consult Rx Perform Med Rec) 1 each MISCELLANE ONCE PRN PRN Reason: Consult order Rivaroxaban (Rivaroxaban 20 Mg Tablet) 20 mg PO BEDTIME [facility] Last Admin: 07/21/22 22:11 Dose: 20 mg Documented By: CHRISTOPHER Senna (Sennosides 8.6 Mg Tablet) 8.6 mg PO BID [facility] Last Admin: 07/22/22 11:19 Dose: 8.6 mg Documented By: ANABELLE Sertraline HCl (Sertraline Hcl 100 Mg Tablet) 100 mg PO DAILY [facility] Last Admin: 07/22/22 11:20 Dose: 100 mg Documented By: ANABELLE Sodium Chloride (0.9 % Sodium Chloride Flush 3 Ml Syringe) 3 ml IVFLUSH QSHIFT [facility] Last Admin: 07/22/22 11:21 Dose: 3 ml Documented By: ANABELLE Tramadol HCl (Tramadol Hcl 50 Mg Tablet) 100 mg PO Q6H PRN PRN Reason: Back Pain Last Admin: 07/21/22 04:22 Dose: 100 mg Documented By: LORENAFS Labs 07/19/22 06:21 07/20/22 05:02 Assessment and Plan (1) Atrial fibrillation with rapid ventricular response: Status: Acute (2) Altered mental status: Status: Acute Plan 57-year-old male with a PMH significant for AFib on Xarelto, CHF, COPD on supplemental oxygen, 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 Pt stayed in the ED for three days waiting placement. While in the ED pt went into AFib with RVR. Patient be admitted to the hospital for treatment and further evaluation of AFib with RVR and leukocytosis of unknown etiology. AFib with RVR..now rate controlled, continue metoprolol and xarelto for stroke prevention Leukocytosis--no evidence of acute infectious, follow Agitation/mood disorder---PRN Psychotropics, Psych has assessed recently but reconsult to assess meds again Acute lactic acidosis--Not due to sepsis, probably d/t decrese cardiac output from afib withrvr Initial lactic acid 1.6 on 07/17/2022 Lactic acid measured at 9.0 on 07/18/2022, likely erroneous Patient's lactic acid 1.9 three hours later VALERIE---resolved. Mood disorder Continue with present meds COPD--no acute exacerbation, inhalers PRN History of CVA with left-sided hemiparesis Continue aspirin, statin Patient positioning q2hrs DNR/DNI Attending:?Dr. Leong DVT Prophylaxis: on Xarelto Neeed for inpatient AFIB with RVR, agitations DC back to [facility] Time Spent With Patient Time: Total time managing care of this patient today ____ minutes. Quality Stroke Does the patient have a stroke diagnosis?: No VTE Prior VTE?: No VTE Risk Level:: Medical - moderate - high VTE Device Contraindication: Treatment Not Indicated VTE Drug Contraindication: N/A - Med Ordered
[2022-07-22 15:24] VITALS: BP 121/78; PULSE 77; RESP 18; TEMP 36.4; O2SAT 98
--- NOTE | 2022-07-22 15:47 | PM.PSYCN ---
History of Present Illness Date of Service: 07/23/22 Chief Complaint: follow up agitation Reason for Consult: f/u Requesting physician: Theron Lockhart Discussed with referring provider: Yes Sources of Information: patient interviewed, chart reviewed and crisis/core team assessment reviewed HPI Narrative: Mr. 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 Pt seen by this underwriter on 07/17 due to pt being brought via EMS due to concern of paranoid and psychosis after he went outside and reported birds were going after him. Pt known to this underwriter through2 previous assessment with similar presentation. Pt known to have classic symptoms of TBI including impulsive, explosive behaviors, cognitive impairments, some degree of suspiciousness but no over paranoid delusions noted or reported. Medication changes on 07/17 include: increase olanzapine to 10mg po TID, increase haldol to 5mg po TID, added clonidine 0.1mg po TID. Sertraline was lowered to prevent further agitation or suspiciousness. Buspar was discontinued to avoid polypharmacy and since it does not appear to be of any therapeutic benefit. Pt has not had any behavioral problems that he usually has while in the ED including constantly yelling, trying to throw things, demanding. Pt has been calm and for the most part very cooperative with care. Pt tells this underwriter that he is feeling well. He reports less anxiety but reports continues to have some. He is sleeping and eating well. He denies SI/HI. No visual or auditory hallucinations. Pt states he wants to go home. Past Psychiatric History: h/o TBI. intermittent agitation. Medical Evaluation Reviewed: Yes Review of Systems Review of Systems no chest pain no palpitation, Yes all other systems are reviewed and are negative Reports sore throat [facility] Medical History Afib Anxiety disorder CHF (congestive heart failure) Cognitive disorder COPD (chronic obstructive pulmonary disease) CVA (cerebrovascular accident) Traumatic brain injury Diagnostics Vital Signs (24Hr): Vital Signs - 24 hr 07/22/22 12:00 07/22/22 15:24 07/22/22 20:00 Temperature 98.0 F 97.6 F 98.9 F Pulse Rate 70 77 85 Respiratory Rate 18 18 20 Blood Pressure 125/70 121/78 121/63 Pulse Oximetry 98 98 95 Oxygen Delivery Method Room Air Room Air Nasal Cannula 07/23/22 07:37 07/23/22 07:33 Temperature 97.0 F Pulse Rate 81 66 Respiratory Rate 16 20 Blood Pressure 101/61 Pulse Oximetry 92 Oxygen Delivery Method Nasal Cannula BMI result Body Mass Index 27.8 Labs 07/19/22 06:21 07/20/22 05:02 Imaging Radiology Impressions: ITS Impressions Chest X-Ray 07/18/22 16:25 IMPRESSION: Cardiomegaly and increased interstitial markings. Pleural thickening. No evidence of pneumonia. Abdomen/Pelvis CT 07/18/22 22:26 IMPRESSION: Chronic appearing changes similar to the 03/21/2022 study. I do not appreciate any acute intra-abdominal process. Chest CT 07/18/22 22:26 IMPRESSION: Chronic appearing changes similar to the 03/21/2022 study. I do not appreciate any acute intra-abdominal process. Mental Status Exam Mental Status Exam Narrative: Appearance: wearing hospital gown, fair hygiene in NAD Behavior:cooperative psychomotor: no agitation or retardation noted Speech:clear, normal rate/rhythm, volume, spontaneous Thought process:mostly linear Thought content:wanting to go back [facility]. Mood: good Affect: congruent SI:none HI:none VH/AH: none Delusions:some suspiciousness towards staff (this particular staff) but no overt delusional content noted or reported Insight/judgment:poor x 2. Memory/cog: alert, oriented x 3. underlying TBI not formal testing. Medications Medications Current Medications Acetaminophen (Acetaminophen 325 Mg Tablet) 650 mg PO DAILY PRN PRN Reason: HEADACHE, VALERY > 100.4, BODY ACHES Last Admin: 07/21/22 10:25 Dose: 650 mg Acetaminophen (Acetaminophen 325 Mg Tablet) 650 mg PO TID [facility] Last Admin: 07/23/22 09:37 Dose: 650 mg Albuterol Sulfate (Albuterol Sulfate (0.083%) 2.5 Mg/3 Ml Vial.Neb) 2.5 mg INHALE TID PRN PRN Reason: Shortness Of Breath Artificial Tears (Artificial Tears 15 Ml Drops) 1 drop EYE-BOTH DAILY [facility] Last Admin: 07/23/22 09:38 Dose: Not Given Atorvastatin Calcium (Atorvastatin Calcium 40 Mg Tablet) 40 mg PO BEDTIME [facility] Last Admin: 07/22/22 21:13 Dose: 40 mg Baclofen (Baclofen 20 Mg Tablet) 20 mg PO BID [facility] Last Admin: 07/23/22 09:38 Dose: 20 mg Calcium Carbonate (Calcium Carbonate 500 Mg Tablet) 500 mg PO TID PRN PRN Reason: Indigestion Clonidine HCl (Clonidine Hcl 0.1 Mg Tablet) 0.1 mg PO TID [facility]; Protocol Last Admin: 07/23/22 09:36 Dose: 0.1 mg Docusate Sodium (Docusate Sodium 100 Mg Capsule) 100 mg PO BID [facility] Last Admin: 07/23/22 09:36 Dose: Not Given Finasteride (Finasteride 5 Mg Tablet) 5 mg PO DAILY [facility] Last Admin: 07/23/22 09:38 Dose: 5 mg Fluticasone/Vilanterol (Fluticasone/Vilanterol 200/25 Blst.W.Dev) 1 puff INHALE RDAILY [facility] Last Admin: 07/23/22 07:36 Dose: 1 puff Furosemide (Furosemide 20 Mg Tablet) 20 mg PO DAILY PRN; Protocol PRN Reason: fluid overload Furosemide (Furosemide 20 Mg Tablet) 20 mg PO DAILY [facility]; Protocol Last Admin: 07/23/22 09:37 Dose: 20 mg Gabapentin (Gabapentin 400 Mg Capsule) 400 mg PO TID [facility] Last Admin: 07/23/22 09:36 Dose: 400 mg Haloperidol (Haloperidol 5 Mg Tablet) 5 mg PO TID [facility] Last Admin: 07/23/22 09:36 Dose: 5 mg Lamotrigine (Lamotrigine 25 Mg Tablet) 25 mg PO BEDTIME [facility] Last Admin: 07/22/22 21:13 Dose: 25 mg Lamotrigine (Lamotrigine 100 Mg Tablet) 100 mg PO BEDTIME [facility] Last Admin: 07/22/22 21:13 Dose: 100 mg Loratadine (Loratadine 10 Mg Tablet) 10 mg PO DAILY [facility] Last Admin: 07/23/22 09:36 Dose: 10 mg Lorazepam (Lorazepam 1 Mg Tablet) 1 mg PO BEDTIME [facility] Last Admin: 07/22/22 21:12 Dose: 1 mg Melatonin (Melatonin 3 Mg Tablet) 9 mg PO BEDTIME [facility] Last Admin: 07/22/22 21:12 Dose: 9 mg Metoprolol Tartrate (Metoprolol Tartrate 50 Mg Tablet) 50 mg PO BID [facility]; Protocol Last Admin: 07/23/22 09:40 Dose: 50 mg Midodrine (Midodrine Hcl 5 Mg Tablet) 5 mg PO TIDAC [facility] Last Admin: 07/23/22 09:38 Dose: 5 mg Mirtazapine (Mirtazapine 15 Mg Tablet) 15 mg PO BEDTIME [facility] Last Admin: 07/22/22 21:13 Dose: 15 mg Nitroglycerin (Nitroglycerin 0.4 Mg Tab.Subl) 0.4 mg SUBLINGUAL Q5M PRN PRN Reason: Chest Pain Non-Formulary Medication (Azelastine) 1 drop EYE-BOTH BID PRN PRN Reason: Allergy Symptoms Non-Formulary Medication (Umeclidinium [Incruse Ellipta]) 1 inhalation INHALE DAILY [facility] Olanzapine (Olanzapine 10 Mg Tablet) 10 mg PO TID [facility] Last Admin: 07/23/22 09:36 Dose: 10 mg Omeprazole (Omeprazole 20 Mg Capsule.Dr) 20 mg PO DAILY@0630 [facility] Last Admin: 07/23/22 05:44 Dose: Not Given Pharmacy Consult (Consult Rx Perform Med Rec) 1 each MISCELLANE ONCE PRN PRN Reason: Consult order Rivaroxaban (Rivaroxaban 20 Mg Tablet) 20 mg PO BEDTIME [facility] Last Admin: 07/22/22 21:13 Dose: 20 mg Senna (Sennosides 8.6 Mg Tablet) 8.6 mg PO BID [facility] Last Admin: 07/23/22 09:36 Dose: 8.6 mg Sertraline HCl (Sertraline Hcl 100 Mg Tablet) 100 mg PO DAILY [facility] Last Admin: 07/23/22 09:35 Dose: 100 mg Sodium Chloride (0.9 % Sodium Chloride Flush 3 Ml Syringe) 3 ml IVFLUSH QSHIFT [facility] Last Admin: 07/23/22 09:38 Dose: 3 ml Allergies Allergies Allergy/AdvReac Type Severity Reaction Status Date / Time No Known Allergies Allergy Verified 12/15/21 14:53 Assessment & Plan Assessment & Plan (1) Mood disorder as late effect of traumatic brain injury: Status: Acute Code(s): F06.30 - Mood disorder due to known physiological condition, unspecified; S06.9XAS - Unspecified intracranial injury with loss of consciousness status unknown, sequela (2) Atrial fibrillation with rapid ventricular response: Status: Acute Code(s): I48.91 - Unspecified atrial fibrillation Plan 57-year-old male with a PMH significant for AFib on Xarelto, CHF, COPD on supplemental oxygen, 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 Pt stayed in the ED for three days waiting placement. While in the ED pt went into AFib with RVR. Patient be admitted to the hospital for treatment and further evaluation of AFib with RVR and leukocytosis of unknown etiology. AFib with RVR..now rate controlled, continue metoprolol and xarelto for stroke prevention Leukocytosis--no evidence of acute infectious, follow Agitation/mood disorder---PRN Psychotropics, Psych has assessed recently but reconsult to assess meds again Acute lactic acidosis--Not due to sepsis, probably d/t decrese cardiac output from afib withrvr Initial lactic acid 1.6 on 07/17/2022 Lactic acid measured at 9.0 on 07/18/2022, likely erroneous Patient's lactic acid 1.9 three hours later VALERIE---resolved. Mood disorder Continue with present meds COPD--no acute exacerbation, inhalers PRN History of CVA with left-sided hemiparesis Continue aspirin, statin Patient positioning q2hrs DNR/DNI Attending:?Dr. Leong DVT Prophylaxis: on Xarelto [facility] [place] [place]- NO IMMINENT SAFETY CONCERN IN TERMS OF SUICIDAL OR HOMICIDAL IDEATION. No evidence of acute psychosis or delusions. Pt presents in much controlled behavior, less explosive and much less combative. No need for inpatient level of care. Continue outpatient psychiatric care. 1. Olanzapine 10mg po TID PRN agitation 2. Haldol 5mg po TID 3. Clonidine 0.1mg po TID 4. Remeron 15mg po qhs 5. Sertraline 100mg po daily (decreased from 150mg po daily lowered to avoid increase agitation or paranoia with higher doses antidepressant). Total time managing care of this patient today __30__ minutes. Patient educated on: diagnosis Informed Consent: understands
--- NOTE | 2022-07-22 15:54 | MHC.CM.PN ---
Patient is ready for discharge. Jorge MIRANDAON Arabella called for a nursing report. She has spoken to [facility] Osiris today. Per CM director the Jorge continues to decline the patient's return home. Attempted to reach the pts dtr. Line busy. CM will continue to follow.
[2022-07-22 20:00] VITALS: BP 121/63; PULSE 85; RESP 20; TEMP 37.2; O2SAT 95
[2022-07-22] MEDS: Melatonin 3 MG TABLET 9 MG PO (21:12)
[2022-07-22] MEDS: Metoprolol Tartrate 50 MG TABLET PO (21:13)
[2022-07-22] MEDS: lamoTRIgine 100 MG TABLET PO (21:13)
[2022-07-22] MEDS: lamoTRIgine 25 MG TABLET PO (21:13)
[2022-07-22] MEDS: Atorvastatin Calcium 40 MG TABLET PO (21:13)
[2022-07-22] MEDS: Mirtazapine 15 MG TABLET PO (21:13)
[2022-07-22] MEDS: Rivaroxaban 20 MG TABLET PO (21:13)
--- NOTE | 2022-07-23 | ECG_ITS ---
Test Reason : chest pain Blood Pressure : / mmHG Vent. Rate : 066 BPM Atrial Rate : 000 BPM P-R Int : 000 ms QRS Dur : 074 ms QT Int : 414 ms P-R-T Axes : 000 002 000 degrees QTc Int : 434 ms Atrial fibrillation Low voltage QRS Abnormal ECG When compared to the previous EKG of No significant changes seen Referred By: Theron Lockhart Electronically Signed By:Jaylan Rouse
[2022-07-23 07:33] VITALS: BP 101/61; PULSE 66; RESP 20; TEMP 36.1; O2SAT 92
[2022-07-23] MEDS: Fluticasone/Vilanterol 200/25 BLST.W.DEV 1 PUFF INHALE (07:36)
[2022-07-23 07:37] VITALS: PULSE 81; RESP 16; O2SAT 93
[2022-07-23] MEDS: traMADoL HCL 50 MG TABLET 100 MG PO (08:51)
[2022-07-23] MEDS: Sertraline HCL 100 MG TABLET PO (09:35)
[2022-07-23] MEDS: cloNIDine HCL 0.1 MG TABLET PO ×3 (09:36→19:33)
[2022-07-23] MEDS: Loratadine 10 MG TABLET PO (09:36)
[2022-07-23] MEDS: OLANZapine 10 MG TABLET PO ×2 (09:36→19:33)
[2022-07-23] MEDS: Gabapentin 400 MG CAPSULE PO ×3 (09:36→19:33)
[2022-07-23] MEDS: HaloperidoL 5 MG TABLET PO ×3 (09:36→19:33)
[2022-07-23] MEDS: Sennosides 8.6 MG TABLET PO ×2 (09:36→19:32)
[2022-07-23] MEDS: Furosemide 20 MG TABLET PO (09:37)
[2022-07-23] MEDS: Acetaminophen 325 MG TABLET 650 MG PO ×3 (09:37→19:32)
[2022-07-23] MEDS: Midodrine HCl 5 MG TABLET PO ×3 (09:38→15:35)
[2022-07-23] MEDS: Finasteride 5 MG TABLET PO (09:38)
[2022-07-23] MEDS: Baclofen 20 MG TABLET PO ×2 (09:38→19:31)
[2022-07-23] MEDS: 0.9 % Sodium Chloride Flush 3 ML SYRINGE IVFLUSH ×3 (09:38→19:34)
[2022-07-23] MEDS: Metoprolol Tartrate 50 MG TABLET PO ×2 (09:40→19:31)
--- NOTE | 2022-07-23 10:39 | HO.PM.IMPN ---
Subjective Subjective Date of Service: 07/23/22 Interval History: was admitted for afib that is now rate controlled. calm, cooperative, no agitation, wants to go home Review of Systems no chest pain no palpitation, Physical Exam Vital Signs: Vital Signs: Last Vital Signs Temp 97.0 F 07/23/22 07:33 Pulse 81 07/23/22 07:37 Resp 16 07/23/22 07:37 BP 101/61 07/23/22 07:33 Pulse Ox 92 07/23/22 07:33 O2 Del Method 07/23/22 07:33 O2 Flow Rate 2 07/22/22 07:02 BMI result Body Mass Index 27.8 Objective Data Active Medications Acetaminophen (Acetaminophen 325 Mg Tablet) 650 mg PO DAILY PRN PRN Reason: HEADACHE, VALERY > 100.4, BODY ACHES Last Admin: 07/21/22 10:25 Dose: 650 mg Documented By: FELY Acetaminophen (Acetaminophen 325 Mg Tablet) 650 mg PO TID [facility] Last Admin: 07/23/22 09:37 Dose: 650 mg Documented By: CINDY Albuterol Sulfate (Albuterol Sulfate (0.083%) 2.5 Mg/3 Ml Vial.Neb) 2.5 mg INHALE TID PRN PRN Reason: Shortness Of Breath Artificial Tears (Artificial Tears 15 Ml Drops) 1 drop EYE-BOTH DAILY [facility] Last Admin: 07/23/22 09:38 Dose: Not Given Documented By: CINDY Non-Admin Reason: Patient Refused Atorvastatin Calcium (Atorvastatin Calcium 40 Mg Tablet) 40 mg PO BEDTIME [facility] Last Admin: 07/22/22 21:13 Dose: 40 mg Documented By: CHRISTOPHER Baclofen (Baclofen 20 Mg Tablet) 20 mg PO BID [facility] Last Admin: 07/23/22 09:38 Dose: 20 mg Documented By: CINDY Calcium Carbonate (Calcium Carbonate 500 Mg Tablet) 500 mg PO TID PRN PRN Reason: Indigestion Clonidine HCl (Clonidine Hcl 0.1 Mg Tablet) 0.1 mg PO TID [facility]; Protocol Last Admin: 07/23/22 09:36 Dose: 0.1 mg Documented By: CINDY Docusate Sodium (Docusate Sodium 100 Mg Capsule) 100 mg PO BID [facility] Last Admin: 07/23/22 09:36 Dose: Not Given Documented By: CINDY Non-Admin Reason: Patient Refused Finasteride (Finasteride 5 Mg Tablet) 5 mg PO DAILY [facility] Last Admin: 07/23/22 09:38 Dose: 5 mg Documented By: CINDY Fluticasone/Vilanterol (Fluticasone/Vilanterol 200/25 Blst.W.Dev) 1 puff INHALE RDAILY [facility] Last Admin: 07/23/22 07:36 Dose: 1 puff Documented By: ALEXIS Furosemide (Furosemide 20 Mg Tablet) 20 mg PO DAILY PRN; Protocol PRN Reason: fluid overload Furosemide (Furosemide 20 Mg Tablet) 20 mg PO DAILY [facility]; Protocol Last Admin: 07/23/22 09:37 Dose: 20 mg Documented By: CINDY Gabapentin (Gabapentin 400 Mg Capsule) 400 mg PO TID [facility] Last Admin: 07/23/22 09:36 Dose: 400 mg Documented By: CINDY Haloperidol (Haloperidol 5 Mg Tablet) 5 mg PO TID [facility] Last Admin: 07/23/22 09:36 Dose: 5 mg Documented By: CINDY Diltiazem HCl 125 mg/ Sodium (Chloride) 125 mls @ 0 mls/hr IVCONT .Q0M [facility]; Protocol Last Titration: 07/19/22 12:06 Dose: 0 mg/hr, 0 mls/hr Documented By: SHEREE Lamotrigine (Lamotrigine 25 Mg Tablet) 25 mg PO BEDTIME [facility] Last Admin: 07/22/22 21:13 Dose: 25 mg Documented By: CHRISTOPHER Lamotrigine (Lamotrigine 100 Mg Tablet) 100 mg PO BEDTIME [facility] Last Admin: 07/22/22 21:13 Dose: 100 mg Documented By: CHRISTOPHER Loratadine (Loratadine 10 Mg Tablet) 10 mg PO DAILY [facility] Last Admin: 07/23/22 09:36 Dose: 10 mg Documented By: CINDY Lorazepam (Lorazepam 1 Mg Tablet) 1 mg PO BEDTIME [facility] Last Admin: 07/22/22 21:12 Dose: 1 mg Documented By: CHRISTOPHER Melatonin (Melatonin 3 Mg Tablet) 9 mg PO BEDTIME [facility] Last Admin: 07/22/22 21:12 Dose: 9 mg Documented By: CHRISTOPHER Metoprolol Tartrate (Metoprolol Tartrate 50 Mg Tablet) 50 mg PO BID [facility]; Protocol Last Admin: 07/23/22 09:40 Dose: 50 mg Documented By: CINDY Midodrine (Midodrine Hcl 5 Mg Tablet) 5 mg PO TIDAC [facility] Last Admin: 07/23/22 09:38 Dose: 5 mg Documented By: CINDY Mirtazapine (Mirtazapine 15 Mg Tablet) 15 mg PO BEDTIME [facility] Last Admin: 07/22/22 21:13 Dose: 15 mg Documented By: CHRISTOPHER Nitroglycerin (Nitroglycerin 0.4 Mg Tab.Subl) 0.4 mg SUBLINGUAL Q5M PRN PRN Reason: Chest Pain Non-Formulary Medication (Azelastine) 1 drop EYE-BOTH BID PRN PRN Reason: Allergy Symptoms Non-Formulary Medication (Umeclidinium [Incruse Ellipta]) 1 inhalation INHALE DAILY [facility] Olanzapine (Olanzapine 10 Mg Tablet) 10 mg PO TID [facility] Last Admin: 07/23/22 09:36 Dose: 10 mg Documented By: CINDY Omeprazole (Omeprazole 20 Mg Capsule.Dr) 20 mg PO DAILY@0630 [facility] Last Admin: 07/23/22 05:44 Dose: Not Given Documented By: CHRISTOPHER Non-Admin Reason: Patient Refused Pharmacy Consult (Consult Rx Perform Med Rec) 1 each MISCELLANE ONCE PRN PRN Reason: Consult order Rivaroxaban (Rivaroxaban 20 Mg Tablet) 20 mg PO BEDTIME [facility] Last Admin: 07/22/22 21:13 Dose: 20 mg Documented By: CHRISTOPHER Senna (Sennosides 8.6 Mg Tablet) 8.6 mg PO BID [facility] Last Admin: 07/23/22 09:36 Dose: 8.6 mg Documented By: CINDY Sertraline HCl (Sertraline Hcl 100 Mg Tablet) 100 mg PO DAILY [facility] Last Admin: 07/23/22 09:35 Dose: 100 mg Documented By: CINDY Sodium Chloride (0.9 % Sodium Chloride Flush 3 Ml Syringe) 3 ml IVFLUSH QSHIFT [facility] Last Admin: 07/23/22 09:38 Dose: 3 ml Documented By: CINDY Tramadol HCl (Tramadol Hcl 50 Mg Tablet) 100 mg PO Q6H PRN PRN Reason: Back Pain Last Admin: 07/23/22 08:51 Dose: 100 mg Documented By: CINDY Labs 07/19/22 06:21 07/20/22 05:02 Assessment and Plan (1) Atrial fibrillation with rapid ventricular response: Status: Acute (2) Mood disorder as late effect of traumatic brain injury: Status: Acute Plan 57-year-old male with a PMH significant for AFib on Xarelto, CHF, COPD on supplemental oxygen, 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 on 07/16/2022 for yelling at the staff, SI, increased confusion per staff, subjective fever, and burning sensation when urinating. Pt stayed in the ED for three days waiting placement. While in the ED pt went into AFib with RVR. Patient be admitted to the hospital for treatment and further evaluation of AFib with RVR and leukocytosis of unknown etiology. AFib with RVR..now rate controlled, continue metoprolol and xarelto for stroke prevention Leukocytosis--no evidence of acute infectious, follow Agitation/mood disorder---PRN Psychotropics, Psych has assessed recently but reconsult to assess meds again Acute lactic acidosis--Not due to sepsis, probably d/t decrese cardiac output from afib withrvr Initial lactic acid 1.6 on 07/17/2022 Lactic acid measured at 9.0 on 07/18/2022, likely erroneous Patient's lactic acid 1.9 three hours later VALERIE---resolved. Mood disorder Continue with present meds COPD--no acute exacerbation, inhalers PRN History of CVA with left-sided hemiparesis Continue aspirin, statin Patient positioning q2hrs DNR/DNI Attending:?Dr. Leong DVT Prophylaxis: on Xarelto Neeed for inpatient AFIB with RVR, agitations DC back to skilled nursing Time Spent With Patient Time: Total time managing care of this patient today ____ minutes. Quality Stroke Does the patient have a stroke diagnosis?: No VTE Prior VTE?: No VTE Risk Level:: Medical - moderate - high VTE Device Contraindication: Treatment Not Indicated VTE Drug Contraindication: N/A - Med Ordered
[2022-07-23 11:48] VITALS: BP 96/58; PULSE 67; RESP 22; TEMP 36.1; O2SAT 93
--- NOTE | 2022-07-23 15:11 | P.CONCA_ITS ---
History of Present Illness History of Present Illness Date of Service: 07/23/22 Requesting physician: Theron Lockhart Chief complaint: Chronic Afib Narrative: 57-year-old gentleman with known history of atrial fibrillation presenting with agitation and AFib with RVR. He has known history of atrial fibrillation and previous EKGs from [facility] also showed atrial fibrillation as the primary rhythm. He is denying any symptoms. It appears he was quite agitated and has found down with medications at this stage. He has known history of AFib as mentioned on Xarelto, congestive heart failure, COPD on oxygen, history of previous stroke with left-sided hemiparesis and mood disorder with previous traumatic brain injury. Currently denying any symptoms. Mood and at times his heart rate was in 30s but difficult to say whether he was awake at that time or not. No syncope or dizziness. [facility] Past Medical History Medical History Afib Anxiety disorder CHF (congestive heart failure) Cognitive disorder COPD (chronic obstructive pulmonary disease) CVA (cerebrovascular accident) Traumatic brain injury Social History Social History Housing: [facility] Alcohol intake: former Patient Tobacco Use Status: Former Tobacco user Use of substances other than those prescribed or required for medical reasons: No Currently Displaying Signs/Symptoms of Drug Intoxication Withdrawal: No Have you been hit, kicked, punched, or otherwise hurt by someone within the past year? If so, by whom?: No Do you feel safe in your current relationship?: No Current Relationship Is there a partner from a previous relationship who is making you feel unsafe now?: No Are you made to feel afraid or neglected: No Advance Directives: Yes Advance Directives on File: Yes Advance Directives Date on File: 11/11/21 Do you have thoughts of harming others: None Do you have a plan to hurt others: No Plan Recently lost weight without trying: No Eating poorly because of decreased appetite: No Nutrition Risks: No Nutritional Risk service: No Current occupational status: disabled Meds Allergies Allergy/AdvReac Type Severity Reaction Status Date / Time No Known Allergies Allergy Verified 12/15/21 14:53 Active Medications: Current Medications Acetaminophen (Acetaminophen 325 Mg Tablet) 650 mg PO DAILY PRN PRN Reason: HEADACHE, VALERY > 100.4, BODY ACHES Last Admin: 07/21/22 10:25 Dose: 650 mg Acetaminophen (Acetaminophen 325 Mg Tablet) 650 mg PO TID [facility] Last Admin: 07/23/22 09:37 Dose: 650 mg Albuterol Sulfate (Albuterol Sulfate (0.083%) 2.5 Mg/3 Ml Vial.Neb) 2.5 mg INHALE TID PRN PRN Reason: Shortness Of Breath Artificial Tears (Artificial Tears 15 Ml Drops) 1 drop EYE-BOTH DAILY [facility] Last Admin: 07/23/22 09:38 Dose: Not Given Atorvastatin Calcium (Atorvastatin Calcium 40 Mg Tablet) 40 mg PO BEDTIME [facility] Last Admin: 07/22/22 21:13 Dose: 40 mg Baclofen (Baclofen 20 Mg Tablet) 20 mg PO BID [facility] Last Admin: 07/23/22 09:38 Dose: 20 mg Calcium Carbonate (Calcium Carbonate 500 Mg Tablet) 500 mg PO TID PRN PRN Reason: Indigestion Clonidine HCl (Clonidine Hcl 0.1 Mg Tablet) 0.1 mg PO TID [facility]; Protocol Last Admin: 07/23/22 09:36 Dose: 0.1 mg Docusate Sodium (Docusate Sodium 100 Mg Capsule) 100 mg PO BID [facility] Last Admin: 07/23/22 09:36 Dose: Not Given Finasteride (Finasteride 5 Mg Tablet) 5 mg PO DAILY [facility] Last Admin: 07/23/22 09:38 Dose: 5 mg Fluticasone/Vilanterol (Fluticasone/Vilanterol 200/25 Blst.W.Dev) 1 puff INHALE RDAILY [facility] Last Admin: 07/23/22 07:36 Dose: 1 puff Furosemide (Furosemide 20 Mg Tablet) 20 mg PO DAILY PRN; Protocol PRN Reason: fluid overload Furosemide (Furosemide 20 Mg Tablet) 20 mg PO DAILY [facility]; Protocol Last Admin: 07/23/22 09:37 Dose: 20 mg Gabapentin (Gabapentin 400 Mg Capsule) 400 mg PO TID [facility] Last Admin: 07/23/22 09:36 Dose: 400 mg Haloperidol (Haloperidol 5 Mg Tablet) 5 mg PO TID [facility] Last Admin: 07/23/22 09:36 Dose: 5 mg Lamotrigine (Lamotrigine 25 Mg Tablet) 25 mg PO BEDTIME [facility] Last Admin: 07/22/22 21:13 Dose: 25 mg Lamotrigine (Lamotrigine 100 Mg Tablet) 100 mg PO BEDTIME [facility] Last Admin: 07/22/22 21:13 Dose: 100 mg Loratadine (Loratadine 10 Mg Tablet) 10 mg PO DAILY [facility] Last Admin: 07/23/22 09:36 Dose: 10 mg Lorazepam (Lorazepam 1 Mg Tablet) 1 mg PO BEDTIME [facility] Last Admin: 07/22/22 21:12 Dose: 1 mg Melatonin (Melatonin 3 Mg Tablet) 9 mg PO BEDTIME [facility] Last Admin: 07/22/22 21:12 Dose: 9 mg Metoprolol Tartrate (Metoprolol Tartrate 50 Mg Tablet) 50 mg PO BID [facility]; Protocol Last Admin: 07/23/22 09:40 Dose: 50 mg Midodrine (Midodrine Hcl 5 Mg Tablet) 5 mg PO TIDAC [facility] Last Admin: 07/23/22 11:47 Dose: 5 mg Mirtazapine (Mirtazapine 15 Mg Tablet) 15 mg PO BEDTIME [facility] Last Admin: 07/22/22 21:13 Dose: 15 mg Nitroglycerin (Nitroglycerin 0.4 Mg Tab.Subl) 0.4 mg SUBLINGUAL Q5M PRN PRN Reason: Chest Pain Non-Formulary Medication (Azelastine) 1 drop EYE-BOTH BID PRN PRN Reason: Allergy Symptoms Non-Formulary Medication (Umeclidinium [Incruse Ellipta]) 1 inhalation INHALE DAILY [facility] Olanzapine (Olanzapine 10 Mg Tablet) 10 mg PO TID PRN PRN Reason: agitation Omeprazole (Omeprazole 20 Mg Capsule.Dr) 20 mg PO DAILY@0630 [facility] Last Admin: 07/23/22 05:44 Dose: Not Given Pharmacy Consult (Consult Rx Perform Med Rec) 1 each MISCELLANE ONCE PRN PRN Reason: Consult order Rivaroxaban (Rivaroxaban 20 Mg Tablet) 20 mg PO BEDTIME [facility] Last Admin: 07/22/22 21:13 Dose: 20 mg Senna (Sennosides 8.6 Mg Tablet) 8.6 mg PO BID [facility] Last Admin: 07/23/22 09:36 Dose: 8.6 mg Sertraline HCl (Sertraline Hcl 100 Mg Tablet) 100 mg PO DAILY [facility] Last Admin: 07/23/22 09:35 Dose: 100 mg Sodium Chloride (0.9 % Sodium Chloride Flush 3 Ml Syringe) 3 ml IVFLUSH QSHIFT [facility] Last Admin: 07/23/22 09:38 Dose: 3 ml Home Medications Medication Instructions Recorded Confirmed Last Taken Type atorvastatin 40 mg tablet 40 mg PO BEDTIME 02/28/22 07/17/22 Unknown History gabapentin 400 mg capsule 400 mg TID 02/28/22 07/17/22 Unknown History lorazepam 1 mg tablet (Ativan) 1 tab PO BEDTIME 02/28/22 07/17/22 Unknown History melatonin 5 mg capsule 2 cap PO BEDTIME 02/28/22 07/17/22 Unknown History metoprolol tartrate 50 mg tablet 50 mg PO BID 02/28/22 07/17/22 Unknown History mirtazapine 15 mg tablet 15 mg PO BEDTIME 02/28/22 07/17/22 Unknown History pantoprazole 40 mg tablet,delayed 40 mg PO DAILY@0630 02/28/22 07/17/22 Unknown History release cetirizine 10 mg tablet 10 mg PO DAILY 03/01/22 07/17/22 Unknown History docusate sodium 100 mg capsule 100 mg PO BID 03/01/22 07/17/22 Unknown History finasteride 5 mg tablet 5 mg PO DAILY 03/01/22 07/17/22 Unknown History furosemide 20 mg tablet 20 mg PO DAILY PRN fluid overload 03/01/22 07/17/22 Unknown History midodrine 5 mg tablet 1 tab PO TIDAC 03/01/22 07/17/22 Unknown History rivaroxaban 20 mg tablet (Xarelto) 20 mg PO BEDTIME 03/01/22 07/17/22 Unknown History acetaminophen 325 mg tablet 650 mg PO TID 03/28/22 07/17/22 Unknown History albuterol sulfate 2.5 mg/3 mL 2.5 mg inhalation TID PRN 03/28/22 07/17/22 Unknown History (0.083 %) solution for nebulization Shortness Of Breath azelastine 0.05 % eye drops 1 drp ophthalmic (eye) BID PRN 03/28/22 07/17/22 Unknown History Allergy Symptoms calcium carbonate 430 mg calcium 430 mg PO TID PRN Indigestion 03/28/22 07/17/22 Unknown History (1,000 mg) chewable tablet furosemide 20 mg tablet 20 mg PO DAILY 03/28/22 07/17/22 Unknown History lamotrigine 100 mg tablet 100 mg PO BEDTIME 03/28/22 07/17/22 Unknown History (Lamictal) lamotrigine 25 mg tablet (Lamictal) 25 mg PO BEDTIME 03/28/22 07/17/22 Unknown History menthol 4 % topical gel (Biofreeze 1 appl topical BID 03/28/22 07/17/22 Unknown History (menthol)) menthol 4 % topical gel (Biofreeze 1 appl topical Q2H PRN Pain (Scale 03/28/22 07/17/22 Unknown History (menthol)) Score 1-3) nitroglycerin 0.4 mg sublingual 0.4 mg sublingual Q5M PRN Chest 03/28/22 3 Unknown History tablet Pain polyvinyl alcohol 1.4 % eye drops 1 drp ophthalmic (eye) DAILY 03/28/22 07/17/22 Unknown History pseudoephedrine-guaifenesin ER 60 1 tab PO BID PRN Congestion 03/28/22 07/17/22 Unknown History mg-600 mg tablet,extend release 12hr (Mucus D) sertraline 100 mg tablet 100 mg PO DAILY 03/28/22 07/17/22 Unknown History tramadol 100 mg tablet 100 mg PO Q6H PRN Back Pain 03/28/22 07/17/22 Unknown History acetaminophen 325 mg tablet 650 mg PO DAILY PRN HEADACHE, 07/17/22 07/17/22 Unknown History VALERY > 100.4, BODY ACHES baclofen 20 mg tablet 20 mg PO BID 07/17/22 07/17/22 Unknown History budesonide-formoterol HFA 160 2 puff inhalation BID 07/17/22 07/17/22 Unknown History mcg-4.5 mcg/actuation aerosol inhaler (Symbicort) buspirone 15 mg tablet 1 tab PO TID 07/17/22 07/17/22 Unknown History mirtazapine 15 mg tablet (Remeron) 1 tab PO BEDTIME 07/17/22 07/17/22 Unknown History sennosides 8.6 mg tablet (senna) 8.6 mg PO BID 07/17/22 07/17/22 Unknown History umeclidinium 62.5 mcg/actuation 1 inh inhalation DAILY 07/17/22 07/17/22 Unknown History blister powder for inhalation (Incruse Ellipta) Physical Exam Vital Signs: Vital Signs: Last Vital Signs Temp 97.0 F 07/23/22 11:48 Pulse 67 07/23/22 11:48 Resp 22 H 07/23/22 11:48 BP 96/58 L 07/23/22 11:48 Pulse Ox 93 07/23/22 11:48 O2 Del Method 07/23/22 11:48 O2 Flow Rate 1 07/23/22 11:48 BMI result Body Mass Index 27.8 GENERAL APPEARANCE: in no acute distress. NECK: no carotid bruit, no jugular venous distention. SKIN: no suspicious lesions, warm and dry. HEART: no murmurs, irregular rate and rhythm. LUNGS: clear to auscultation bilaterally. ABDOMEN: soft, nontender. EXTREMITIES: no edema. Objective Labs and Meds 07/19/22 06:21 07/20/22 05:02 Assessment and Plan (1) Atrial fibrillation with rapid ventricular response: Status: Acute Plan [age] gentleman with chronic atrial fibrillation presenting for agitation. He was noticed to have AFib with RVR when he was agitated. It appears since his mood has been stable his heart rate is also well controlled. Clinically not in heart failure. Overall stable. On anticoagulation with Xarelto previously which should be continued. Will continue same medications currently. Thank you for allowing me to participate in the care of your patient. Please feel free to contact me if you have any questions. Time Spent With Patient Time: Total time managing care of this patient today ____ minutes. Procedures Date of Service Date of Service: 07/23/22
[2022-07-23 15:50] VITALS: BP 116/69
[2022-07-23 15:54] VITALS: BP 116/72; PULSE 72; RESP 19; TEMP 37.1; O2SAT 91
--- NOTE | 2022-07-23 16:05 | MHC.CM.PN ---
CM conference w Service [facility] and [facility]., CM Director and Behavioral health provider Bianca as well as T/W was held at the request of the and [facility]. The patient's case was reviewed, and DC today planned. [facility] stated that they would not be able to fill and deliver today. DC held today. DP return to via BLS.
[2022-07-23 19:16] VITALS: BP 114/66; PULSE 67; RESP 19; TEMP 37.1; O2SAT 98
[2022-07-23] MEDS: Rivaroxaban 20 MG TABLET PO (19:31)
[2022-07-23] MEDS: lamoTRIgine 100 MG TABLET PO (19:32)
[2022-07-23] MEDS: Mirtazapine 15 MG TABLET PO (19:32)
[2022-07-23] MEDS: lamoTRIgine 25 MG TABLET PO (19:32)
[2022-07-23] MEDS: LORazepam 1 MG TABLET PO (19:32)
[2022-07-23] MEDS: Melatonin 3 MG TABLET 9 MG PO (19:32)
[2022-07-23] MEDS: Docusate Sodium 100 MG CAPSULE PO (19:33)
[2022-07-23] MEDS: Atorvastatin Calcium 40 MG TABLET PO (19:33)
[2022-07-24] VITALS: PULSE 68
[2022-07-24 04:00] VITALS: PULSE 60
[2022-07-24] MEDS: Fluticasone/Vilanterol 200/25 BLST.W.DEV 1 PUFF INHALE (07:22)
[2022-07-24 07:23] VITALS: PULSE 88; RESP 18; O2SAT 93
[2022-07-24 07:30] VITALS: BP 128/59; PULSE 85; RESP 20; TEMP 36.1; O2SAT 92
[2022-07-24] MEDS: Metoprolol Tartrate 50 MG TABLET PO (07:38)
[2022-07-24] MEDS: Loratadine 10 MG TABLET PO (07:38)
[2022-07-24] MEDS: Docusate Sodium 100 MG CAPSULE PO (07:38)
[2022-07-24] MEDS: Baclofen 20 MG TABLET PO (07:38)
[2022-07-24] MEDS: Sennosides 8.6 MG TABLET PO (07:38)
[2022-07-24] MEDS: Gabapentin 400 MG CAPSULE PO (07:38)
[2022-07-24] MEDS: Sertraline HCL 100 MG TABLET PO (07:38)
[2022-07-24] MEDS: Acetaminophen 325 MG TABLET 650 MG PO (07:39)
[2022-07-24] MEDS: HaloperidoL 5 MG TABLET PO (07:39)
[2022-07-24] MEDS: Furosemide 20 MG TABLET PO (07:39)
[2022-07-24] MEDS: Midodrine HCl 5 MG TABLET PO ×2 (07:39→12:23)
[2022-07-24] MEDS: cloNIDine HCL 0.1 MG TABLET PO (07:39)
[2022-07-24] MEDS: OLANZapine 10 MG TABLET PO ×2 (07:40→13:17)
[2022-07-24] MEDS: Finasteride 5 MG TABLET PO (07:40)
[2022-07-24] MEDS: 0.9 % Sodium Chloride Flush 3 ML SYRINGE IVFLUSH (07:40)
--- NOTE | 2022-07-24 10:21 | PM.DS ---
DS: Providers Provider Date of Service: 07/24/22 Date of admission: 07/18/22 22:31 Primary care physician: Unknown Physician Consults: 07/17/22 09:39 Consult to Care Team Stat Comment: Reason for consultation: custodial requesting evaluation for inpatient [facility] psych, SI/ agitation 07/18/22 22:39 Consult to Cardiology Routine Consulting Provider: Yong Arroyo Reason for consultation: AFib with RVR DS: Diagnosis Discharge Diagnosis (1) Atrial fibrillation with rapid ventricular response: Status: Acute DS: Summary Hospital Course Hospital Course: Attending physician on admission: Pooja Palmer Chief Complaint: AFib with RVR Pt is a 57-year-old male with a PMH significant for AFib on Xarelto, CHF, COPD on supplemental oxygen, 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 In ED patient was afebrile with blood pressure 152/80, POC 148, and patient denied SI or HI.? Workup in the ED was negative, but patient was shouting at staff in the ED throughout the day and throughout the night.? Staff at the patient's custodial did not allow patient to be transferred back to facility and requested evaluation for inpatient psychiatric services.? Patient continued to yell at staff in the ED through the next day and night and was very agitated.? Patient received Haldol, Ativan, Benadryl, and Zyprexa to little effect.? Today, on day 3 of patient's stay in the ED patient was observed to go into AFib with RVR with heart rate over 200.? Patient was given adenosine, Mag sulfate, Lopressor, and eventually started on a Cardizem drip.? Patient's heart rate now in the 80s.? Patient currently complains of chest pressure, but no palpitations, SOB.? Denies headache, vision changes.? No abdominal pain.? Patient last had bowel movement yesterday, but not today. Labs were significant for leukocytosis of 17.5, lactic acidosis of a 9.0 with repeat of 1.9, elevated BNP of 249, troponin WNL at 16.2, procalcitonin negative at 0.14. CXR showed cardiomegaly and increased interstitial markings with pleural thickening. CT?of chest and abdomen pending. Pt will be admitted to the hospital for treatment evaluation of AFib with RVR and leukocytosis of unknown etiology. 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 Infectious work up was unremarkable. While in the ED, he had an episode of AFib with RVR (he has underlying AFIB) and because of of this he ended been admitted for management of afib with RVR. AFib with RVR, he was given IV cardizem transiently and continued on his home dose of Metoprolol and his heart rate has been well controlled. It is possible for him to go into atrial fibrilation with rapid rate from time to time, especially if he is agitated for for behavioral reason, at the present time given that his heart rate has been well controlled on his usual medication no additional action or medication is addded. He should continue taking Xarelto to prevent stroke. Leukocytosis--no evidence of acute infectious, had UA that was normal, CXR no pneumonia, CT of abdomen and pelvis with no acute finding. WBC actually went up as high 17 and then came down to latest 12, he continues to show no sings of infection, no fever and therefore no antibiotics Agitation/mood disorder--He is on a rather large polypharmcy to control his behavior as evident by his med list.. He was assessed and followed by Psych and had careful review of his medication and adjustent with addition of Clonidine 0.1 TID and discontinuation of Keppra, haldol changed to 5 mg tid, olanzepine changed to 10 mg TID prn for agitation, and ativan changed to 0.5 mg bid PRN for anxiet and with this intervention he has been very calm, cooperative and without agitation since hospitalization and therefore these changes should be permanent. As for Keppra for seizure desorder and mood control there is also concern that it may have been contributing to behavior changes and therefore for now should be off Keppra and continue Lamictal for for seizure prevention, he has not have seizure.. In the event that he developped breakthough seizure adjustement maybe needed. Mood disorder--see above Acute lactic acidosis--Not due to sepsis, probably d/t decrese cardiac output from afib withrvr.. Lactic acid was Initial lactic acid 1.6 on 07/17/2022 Lactic acid measured at 9.0 on 07/18/2022, likely erroneous Patient's lactic acid 1.9 three hours later VALERIE---resolved. Creatine was 1.21 and went down to 0.66 upon hydration COPD--no acute exacerbation, inhalers PRN History of CVA with left-sided hemiparesis Continue aspirin, statin, Xarelto Patient positioning q2hrs Time Spent with Patient Time attestation: Total time managing care of this patient today ____ minutes. Discharge coordination time: Greater than 30 minutes Quality: Safe Use of Opioids Does Pt have an Active Cancer Diagnosis on the Problem List?: No Quality: Stroke Does the patient have a stroke diagnosis?: No Physical Exam Vital Signs: Vital Signs: Selected Entries 07/24/22 07:30 Temperature 97.0 F Pulse Rate 85 Respiratory Rate 20 Blood Pressure 128/59 L Pulse Oximetry 92 Oxygen Delivery Me thod Nasal Cannula Oxygen Flow Rate 1 ?Constitutional:alerti, oriented, to self, place, not agitated Mental Status:?Oriented to person, place and time. Eyes:?Pupils are equal, round, and reactive to light. Ear, Nose, and Throat:?Oropharynx clear, mucous membranes moist. Ears and nose without deformities. Trachea midline. Respiratory:?Clear to auscultation bilaterally. No wheezing, rales, or rhonchi. Cardiovascular:?Irregularly regular rhythm. Gastrointestinal:?Abdomen firm, non-tender, distended. Normal bowel sounds. Neurologic:?Pt with left-sided hemiparesis. Skin:?No rashes or lesions noted. Musculoskeletal:?No cyanosis or clubbing. Extremities:?No edema. Psychiatric:?Normal mood and affect. DS: Data Data Completed and Pending Labs on day of discharge: Laboratory Results - last 24 hr 07/18/22 07/18/22 07/18/22 15:49 16:10 16:10 WBC 17.5 H RBC 5.16 Hgb 15.2 Hct 46.7 MCV 90.5 MCH 29.5 MCHC 32.5 RDW 14.1 Plt Count 354 D MPV 9.8 Immature Gran % (Auto) 1.0 H Neut % (Auto) 66.8 Lymph % (Auto) 26.2 [place] % (Auto) 5.6 Eos % (Auto) 0.1 Baso % (Auto) 0.3 Lymph # (Auto) 4.6 [place] # (Auto) 1.0 Eos # (Auto) 0.0 Baso # (Auto) 0.1 Abs Immat Gran (auto) 0.17 H Absolute Neuts (auto) 11.7 H Absolute Nucleated RBC 0.000 Nucleated RBC % (auto) 0.0 PT INR Whole Blood INR O2 Saturation ABG pH at Pt Temp ABG pCO2 at Pt Temp ABG pO2 at Pt Temp ABG HCO3 ABG Base Excess (Actual) Sodium 140 Potassium 4.2 Chloride 103 Carbon Dioxide 14 L Anion Gap 27 H BUN 16 Creatinine 1.21 Estim Creat Clear Calc 80.1 Estimated GFR > 60 POC Glucose 145 H Random Glucose 155 H Lactic Acid Lactic Acid F/U @ 2Hr Calcium 9.8 D Magnesium 2.2 Total Bilirubin 1.4 H Direct Bilirubin 0.4 AST 48 H ALT 24 Alkaline Phosphatase 118 H Troponin I High Sens B-Natriuretic Peptide Total Protein 7.1 Albumin 4.6 Procalcitonin 07/18/22 07/18/22 07/18/22 16:10 16:10 16:10 WBC RBC Hgb Hct MCV MCH MCHC RDW Plt Count MPV Immature Gran % (Auto) Neut % (Auto) Lymph % (Auto) [place] % (Auto) Eos % (Auto) Baso % (Auto) Lymph # (Auto) [place] # (Auto) Eos # (Auto) Baso # (Auto) Abs Immat Gran (auto) Absolute Neuts (auto) Absolute Nucleated RBC Nucleated RBC % (auto) PT INR Whole Blood INR Cancelled O2 Saturation ABG pH at Pt Temp ABG pCO2 at Pt Temp ABG pO2 at Pt Temp ABG HCO3 ABG Base Excess (Actual) Sodium Potassium Chloride Carbon Dioxide Anion Gap BUN Creatinine Estim Creat Clear Calc Estimated GFR POC Glucose Random Glucose Lactic Acid 9.0 H* Lactic Acid F/U @ 2Hr Calcium Magnesium Total Bilirubin Direct Bilirubin AST ALT Alkaline Phosphatase Troponin I High Sens 16.2 D B-Natriuretic Peptide Total Protein Albumin Procalcitonin 07/18/22 07/18/22 07/18/22 16:10 16:15 19:06 WBC RBC Hgb Hct MCV MCH MCHC RDW Plt Count MPV Immature Gran % (Auto) Neut % (Auto) Lymph % (Auto) [place] % (Auto) Eos % (Auto) Baso % (Auto) Lymph # (Auto) [place] # (Auto) Eos # (Auto) Baso # (Auto) Abs Immat Gran (auto) Absolute Neuts (auto) Absolute Nucleated RBC Nucleated RBC % (auto) PT 13.8 H INR 1.2 H Whole Blood INR O2 Saturation ABG pH at Pt Temp ABG pCO2 at Pt Temp ABG pO2 at Pt Temp ABG HCO3 ABG Base Excess (Actual) Sodium Potassium Chloride Carbon Dioxide Anion Gap BUN Creatinine Estim Creat Clear Calc Estimated GFR POC Glucose Random Glucose Lactic Acid Lactic Acid F/U @ 2Hr 1.9 Calcium Magnesium Total Bilirubin Direct Bilirubin AST ALT Alkaline Phosphatase Troponin I High Sens B-Natriuretic Peptide 249 H Total Protein Albumin Procalcitonin 07/18/22 07/18/22 07/18/22 19:13 21:25 23:38 WBC RBC Hgb Hct MCV MCH MCHC RDW Plt Count MPV Immature Gran % (Auto) Neut % (Auto) Lymph % (Auto) [place] % (Auto) Eos % (Auto) Baso % (Auto) Lymph # (Auto) [place] # (Auto) Eos # (Auto) Baso # (Auto) Abs Immat Gran (auto) Absolute Neuts (auto) Absolute Nucleated RBC Nucleated RBC % (auto) PT INR Whole Blood INR O2 Saturation 96.0 ABG pH at Pt Temp 7.39 ABG pCO2 at Pt Temp 32 ABG pO2 at Pt Temp 86 ABG HCO3 20 L ABG Base Excess (Actual) -3.8 Sodium 139 Potassium 3.9 Chloride 108 Carbon Dioxide 21 L Anion Gap 14 BUN 14 Creatinine 0.79 Estim Creat Clear Calc 122.8 Estimated GFR > 60 POC Glucose Random Glucose 110 Lactic Acid Lactic Acid F/U @ 2Hr Calcium 8.5 D Magnesium Total Bilirubin 1.1 H Direct Bilirubin AST 39 H ALT 21 Alkaline Phosphatase 91 Troponin I High Sens B-Natriuretic Peptide Total Protein 5.8 L Albumin 3.8 Procalcitonin 0.14 07/19/22 07/19/22 07/19/22 06:21 06:21 06:21 WBC 12.9 H RBC 4.52 L Hgb 13.3 L Hct 41.1 L MCV 90.9 MCH 29.4 MCHC 32.4 RDW 14.4 Plt Count 256 D MPV 9.8 Immature Gran % (Auto) Neut % (Auto) Lymph % (Auto) [place] % (Auto) Eos % (Auto) Baso % (Auto) Lymph # (Auto) [place] # (Auto) Eos # (Auto) Baso # (Auto) Abs Immat Gran (auto) Absolute Neuts (auto) Absolute Nucleated RBC 0.000 Nucleated RBC % (auto) 0.0 PT INR Whole Blood INR O2 Saturation ABG pH at Pt Temp ABG pCO2 at Pt Temp ABG pO2 at Pt Temp ABG HCO3 ABG Base Excess (Actual) Sodium 138 Potassium 3.5 Chloride 107 Carbon Dioxide 19 L Anion Gap 16 BUN 15 Creatinine 0.75 Estim Creat Clear Calc 129.3 Estimated GFR > 60 POC Glucose Random Glucose 108 Lactic Acid Lactic Acid F/U @ 2Hr Calcium 8.7 Magnesium Total Bilirubin Direct Bilirubin AST ALT Alkaline Phosphatase Troponin I High Sens B-Natriuretic Peptide 70 Total Protein Albumin Procalcitonin Discharge Plan Discharge Anticipated Discharge Date/Time: 07/24/22 09:14 Patient Disposition: Home, Self-Care Discharge Diagnosis: AFIB with RVR Referrals: Diana Joseph [Other] - 1 Week (PCP ) Discharge Medications: New clonidine HCl 0.1 mg Tablet 0.1 mg PO TID Qty: 90 0RF Protocol: Hold for SBP< HOLD for SBP < : 90 olanzapine 10 mg Tablet 10 mg PO TID PRN (Reason: agitation) Qty: 90 0RF haloperidol 5 mg Tablet 5 mg PO TID Qty: 90 0RF Continued lorazepam [Ativan] 1 mg tablet 1 tab PO BEDTIME melatonin 5 mg capsule 2 cap PO BEDTIME mirtazapine 15 mg Tablet 15 mg PO BEDTIME atorvastatin 40 mg Tablet 40 mg PO BEDTIME gabapentin 400 mg Capsule 400 mg TID pantoprazole 40 mg Tablet,Delayed Release (Dr/Ec) 40 mg PO DAILY@0630 metoprolol tartrate 50 mg Tablet 50 mg PO BID Rx Instructions: HOLD IF SBP < 100 OR > 140 HOLD IF HR < 60 OR > 100 cetirizine 10 mg Tablet 10 mg PO DAILY docusate sodium 100 mg Capsule 100 mg PO BID furosemide 20 mg Tablet 20 mg PO DAILY PRN (Reason: fluid overload) Rx Instructions: NEEDED FOR WEIGHT GAIN > 3 POUNDS finasteride 5 mg Tablet 5 mg PO DAILY Xarelto 20 mg Tablet 20 mg PO BEDTIME Rx Instructions: must administer with evening meal midodrine 5 mg tablet 1 tab PO TIDAC azelastine 0.05 % Drops 1 drp OPHTHALMIC (EYE) BID PRN (Reason: Allergy Symptoms) acetaminophen 325 mg Tablet 650 mg PO TID albuterol sulfate 2.5 mg /3 mL (0.083 %) Solution For Nebulization 2.5 mg INHALATION TID PRN (Reason: Shortness Of Breath) polyvinyl alcohol 1.4 % Drops 1 drp OPHTHALMIC (EYE) DAILY sertraline 100 mg Tablet 100 mg PO DAILY Rx Instructions: tdd = 150 mg pseudoephedrine-guaifenesin [Mucus D] 60-600 mg Tablet Extended Release 12 Hr 1 tab PO BID PRN (Reason: Congestion) lamotrigine [Lamictal] 25 mg Tablet 25 mg PO BEDTIME Rx Instructions: tdd = 125 mg nitroglycerin 0.4 mg Tablet, Sublingual 0.4 mg SUBLINGUAL Q5M PRN (Reason: Chest Pain) Rx Instructions: do not exceed 3 doses per episode Biofreeze (menthol) 4 % Gel 1 appl TOPICAL BID Rx Instructions: apply a thin layer mid to lower back Biofreeze (menthol) 4 % Gel 1 appl TOPICAL Q2H PRN (Reason: Pain (Scale Score 1-3)) calcium carbonate 430 mg calcium (1,000 mg) Tablet,Chewable 430 mg PO TID PRN (Reason: Indigestion) tramadol 100 mg Tablet 100 mg PO Q6H PRN (Reason: Back Pain) furosemide 20 mg Tablet 20 mg PO DAILY Rx Instructions: HOLD FOR SBP< 100 OR > 140 HOLD IF HR < 60 OR > 100 lamotrigine [Lamictal] 100 mg Tablet 100 mg PO BEDTIME Rx Instructions: TAKE TOGETHER WITH 25 MG TAB TDD= 125 MG mirtazapine [Remeron] 15 mg tablet 1 tab PO BEDTIME buspirone 15 mg tablet 1 tab PO TID budesonide-formoterol [Symbicort] 160-4.5 mcg/actuation Hfa Aerosol Inhaler 2 puff INHALATION BID baclofen 20 mg Tablet 20 mg PO BID sennosides [senna] 8.6 mg Tablet 8.6 mg PO BID Rx Instructions: HOLD FOR LOOSE BOWEL MOVEMENT Incruse Ellipta 62.5 mcg/actuation Blister With Device 1 inh INHALATION DAILY acetaminophen 325 mg Tablet 650 mg PO DAILY PRN (Reason: HEADACHE, VALERY > 100.4, BODY ACHES ) Changed lorazepam [Ativan] 0.5 mg tablet 0.5 mg PO BID PRN (Reason: anxiety) Qty: 30 0RF Discontinued levetiracetam 500 mg Tablet 500 mg PO BID olanzapine [Zyprexa] 5 mg tablet 5 mg PO BID@0900,1500 haloperidol 2 mg tablet 1 tab PO TID lorazepam [Ativan] 0.5 mg tablet 1 tab PO DAILY PRN (Reason: Anxiety) sertraline [Zoloft] 50 mg tablet 50 mg PO DAILY Rx Instructions: tdd = 150 mg olanzapine [Zyprexa] 20 mg tablet 1 tab PO BEDTIME Discharge Orders: Discharge Order (Routine); Ordered 07/24/22 Ordered By: Theron Lockhart Diet: Advance to usual diet Activity on Discharge: As tolerated Stand Alone Forms: Patient Portal Discharge page Care Plan Goals: Mood stabilization, control of behavior and control of atrial fibrilation Health Concerns: Mood desorder, behavior issues, Atrial fibrilation, h/o stroke Plan of Treatment: Note medication changes above with addition of clonidine 0.1 3 times a day Keppra has been stopped Haldol changed to 5 mg TID Olanzepine changed to 10 mg PRN for agitation Lorazepam changed to 0.5 mg BID PRN for anxiety To continue other medication Follow up with his usual provider in a week continue metoprolol to control atrial fibrilation and take Xarelto as usual to prevent stroke\ Hold metoprolol if Heart rate is less than 60 beats per minutes, discussed with cardiology and no change in medication for atrial fibrilation Assessment: See above
[2022-07-24 11:39] VITALS: BP 129/62; PULSE 76; RESP 22; TEMP 36.8; O2SAT 91
--- NOTE | 2022-07-24 12:22 | MHC.CM.PN ---
Patient is discharged today to Home. Home [facility]. All scripts have been sent to [facility]. The Nurse Arabella has been notified of discharge today. She requested all Discharge info be sent via Director EMAIL. The original dc paperwork will be sent with the patient. BLS is booked 12:30-1pm. Nurse 2 Nurse report has been provided. The patient Dtr/HCP has been notified that her Father will return to the today.
[2022-07-24] MEDS: Artificial Tears 15 ML DROPS 1 DROP EYE-BOTH (12:42)
--- NOTE | 2022-07-24 13:57 | PC.NURSE ---
Pt alert and oriented, denies having any pain, increasingly agitated, disruptive, yelling @ staff , difficult to redirect, PRN Olanzapine admin with some effect. Pt discharge to long-term @ 1400, nurse to nurse report given to RN.
== END 2022-07-24 14:03 | disposition home or self-care (01) | DRG 201 ==
LOC: HO.ED 07-18 21:48 → HO.EDOVER 07-18 22:42 → HO.IMC 07-18 23:37
PROVIDERS: Internal Medicine; Orthopaedic Surgery; Student in an Organized Health Care Education/Training Program; Admitting Provider Student in an Organized Health Care Education/Training Program; Emergency Provider Internal Medicine; PCP Family Medicine; Visit Provider Internal Medicine
DX: I48.91 Unspecified atrial fibrillation (principal); E87.21 Acute metabolic acidosis; N17.9 Acute kidney failure, unspecified; R45.851 Suicidal ideations; G81.94 Hemiplegia, unspecified affecting left nondominant side; E86.0 Dehydration; D72.829 Elevated white blood cell count, unspecified; F06.30 Mood disorder due to known physiological condition, unspecified; S06.9XAS Unspecified intracranial injury with loss of consciousness status unknown, sequela; F41.9 Anxiety disorder, unspecified; I50.9 Heart failure, unspecified; G40.909 Epilepsy, unspecified, not intractable, without status epilepticus; J44.9 Chronic obstructive pulmonary disease, unspecified; Z66 Do not resuscitate; Z20.822 Contact with and (suspected) exposure to COVID-19; Z99.81 Dependence on supplemental oxygen; Z87.891 Personal history of nicotine dependence; Z79.01 Long term (current) use of anticoagulants; Z79.899 Other long term (current) drug therapy
CPT/HCPCS: 0241U; 36415; 71045; 71250; 74176; 80048; 80053; 80076; 81003; 82803; 82947; 83605; 83735; 83880; 84145; 84484; 85025; 85027; 85610; 87040; 93005; 94640; 99285; J0153; J1200; J2060; J2250; J2543; S9485

== ENCOUNTER 2022-08-05 11:01 | Inpatient (IN) | payer MEDICAID, SELFPAY ==
--- NOTE | ~2022-08-05 | CT_ITS ---
EXAMINATION: CT ANGIOGRAM OF THE CHEST WITH AND WITHOUT CONTRAST (CT PULMONARY ANGIOGRAM FOR PE) CLINICAL INFORMATION: Reason for Exam hypoxia COMPARISON: None TECHNIQUE: Prior to contrast administration, noncontrast localization images were obtained. Subsequently, multidetector volumetric imaging was performed from the thoracic inlet to below the diaphragms following the administration of 80 mL Omnipaque 350 intravenous contrast. No contrast reaction reported Sagittal, coronal, and MIP oblique sagittal reformatted images were obtained on the CT workstation, uploaded to PACS, and reviewed. This CT examination was performed using dose optimization techniques as appropriate, variously including the following: *Automated exposure control *Adjustment of mA and/or kV according to patient size (this includes techniques or standardized protocols for targeted exams where dose is matched to indication/reason for exam; i.e. extremities or head) *Use of iterative reconstruction technique Total exam dose-length product 526 mGy-cm FINDINGS: QUALITY OF STUDY/CONTRAST BOLUS: Satisfactory. PULMONARY ARTERIES: No central or segmental pulmonary emboli. THORACIC AORTA: No aneurysm or dissection. LUNG: Bibasilar atelectasis. There is an edema pattern observed, within the right and left lung with peripheral blebs and emphysematous changes noted. No suspicious masses or nodules. PLEURA: There is a small right basilar effusion. MEDIASTINUM: There is a large amount of pericardial fat. Heart size is borderline. No significant adenopathy. No evidence of septal bowing or right heart strain. CORONARY ARTERY CALCIFICATION: Minor CHEST WALL/AXILLA: No axillary or internal mammary lymphadenopathy. OSSEOUS STRUCTURES: No acute or suspicious osseous abnormality. UPPER ABDOMEN: Hepatic steatosis. No reflux of contrast into the hepatic veins to suggest elevated right heart pressures. CT/CT angio chest PE protocol IMPRESSION: No evidence for acute PE. There is an edema pattern in the lungs VTE: negative
--- NOTE | ~2022-08-05 | XR_ITS ---
EXAMINATION: XR CHEST CLINICAL INFORMATION: Shortness of breath COMPARISON: 07/18/2022 TECHNIQUE: Frontal view of the chest was obtained. FINDINGS: Moderate cardiomegaly with moderate distention of the pulmonary vessels. Bilateral edema noted. Findings consistent with congestive failure. No change. XR/XR chest 1V IMPRESSION: Stable congestive change.
[2022-08-05 11:14] VITALS: BP 89/65; BP 90/50; PULSE 72; RESP 18; TEMP 35.6; O2SAT 88; O2SAT 89; BMI 41.0
--- NOTE | 2022-08-05 11:21 | PC.NURSE ---
57 y/o M BIBA from [facility] with SOB and episode of desaturation to 78%. pt is on o2 at baseline, pt is lethargic, soft BPs. pt in gown, on monitor, awaiting MD steven.
--- NOTE | 2022-08-05 11:22 | PC.NURSE ---
chronic lopez noted.
--- NOTE | 2022-08-05 11:40 | ECG_ITS ---
Test Reason : Hypotension Blood Pressure : / mmHG Vent. Rate : 075 BPM Atrial Rate : 000 BPM P-R Int : 000 ms QRS Dur : 078 ms QT Int : 398 ms P-R-T Axes : 000 002 003 degrees QTc Int : 444 ms Atrial fibrillation Low voltage QRS Nonspecific T wave abnormality Abnormal ECG When compared with ECG of 23-JUL-2022 18:53, No significant change was found Referred By: Linda Vera Electronically Signed By:JAGDISH LIU MD
--- NOTE | 2022-08-05 11:44 | PC.NURSE ---
pt BP 67/54 in hallway, pt moved into room 19, secondary 18G iv in place, all labs drawn and sent, 1L NS given via pressure bag. Md at bedside. plan for EKG
--- NOTE | 2022-08-05 11:48 | PC.NURSE ---
pt trendelenburged, BP 85/63
[2022-08-05 11:59] LABS: MANUAL DIFF FLAG NO
[2022-08-05 12:02] LABS: Basophils Absolute Auto 0.1 X10*3/uL (0.0-0.2); Basophils Percent Auto 0.6 % (0-2); Eosinophils Absolute Auto 0.2 X10*3/uL (0.0-0.4); Eosinophils Percent Auto 1.8 % (0-4); Hematocrit 41.9 % (42.0-52.0); Hemoglobin 13.1 g/dl (14.0-18.0); Imm Gran Abs Auto 0.09 X10*3/uL (0.00-0.03); Imm Gran Pct Auto 0.9 % (0.0-0.4); Lymphocytes Absolute Auto 3.7 X10*3/uL (1.2-4.9); Mean Corpuscular HGB Conc 31.3 g/dl (31.0-36.0); Mean Corpuscular Hemoglobin 29.2 pg (27.0-33.0); Mean Corpuscular Volume 93.5 fL (80.0-98.0); Mean Platelet Volume 9.9 fL (9.4-12.4); Monocytes Absolute Auto 0.6 X10*3/uL (0.1-1.2); Monocytes Percent Auto 5.7 % (2-11); Neutrophils Absolute Auto 5.2 x10*3/uL (2.0-8.3); Platelet Count 266 X10*3/uL (160-400); Red Blood Count 4.48 X10*6/uL (4.60-5.80); Red Cell Distribution Width 14.4 % (11.0-16.0); White Blood Count 9.7 X10*3/uL (4.8-10.8)
[2022-08-05 12:03] LABS: Appearance Urine Cloudy; Color Urine Yellow; Glucose Urine UA Negative (Negative); Leukocyte Esterase Urine Trace (Negative); Nitrite Urine Negative (Negative); PH 7.5 (5.0-9.0); Specific Gravity - Urine 1.015 (1.005-1.025); UMIC TRIGGER UACC YES; Urine Blood Negative (Negative); Urine Ketones Negative (Negative); Urine Protein Negative (Neg-Trace)
--- NOTE | 2022-08-05 12:04 | ED.GENADULT ---
HPI - General Adult General Chief complaint: Dyspnea Stated complaint: From alf, SOB per EMS Time Seen by Provider: 08/05/22 11:42 Source: EMS and old records reviewed Limitations: altered mental status History of Present Illness HPI narrative: Patient presenting from alf with lethargy. Found to be hypotensive and hypoxic. Apparently has had a cough. Further history not available at this time. Related Data Home Medications Medication Instructions Recorded Confirmed atorvastatin 40 mg tablet 40 mg PO BEDTIME 02/28/22 07/17/22 gabapentin 400 mg capsule 400 mg TID 02/28/22 07/17/22 lorazepam 1 mg tablet (Ativan) 1 tab PO BEDTIME 02/28/22 07/17/22 melatonin 5 mg capsule 2 cap PO BEDTIME 02/28/22 07/17/22 metoprolol tartrate 50 mg tablet 50 mg PO BID 02/28/22 07/17/22 mirtazapine 15 mg tablet 15 mg PO BEDTIME 02/28/22 07/17/22 pantoprazole 40 mg tablet,delayed 40 mg PO DAILY@0630 02/28/22 07/17/22 release cetirizine 10 mg tablet 10 mg PO DAILY 03/01/22 07/17/22 docusate sodium 100 mg capsule 100 mg PO BID 03/01/22 07/17/22 finasteride 5 mg tablet 5 mg PO DAILY 03/01/22 07/17/22 furosemide 20 mg tablet 20 mg PO DAILY PRN fluid overload 03/01/22 07/17/22 midodrine 5 mg tablet 1 tab PO TIDAC 03/01/22 07/17/22 rivaroxaban 20 mg tablet (Xarelto) 20 mg PO BEDTIME 03/01/22 07/17/22 acetaminophen 325 mg tablet 650 mg PO TID 03/28/22 07/17/22 albuterol sulfate 2.5 mg/3 mL 2.5 mg inhalation TID PRN 03/28/22 07/17/22 (0.083 %) solution for nebulization Shortness Of Breath azelastine 0.05 % eye drops 1 drp ophthalmic (eye) BID PRN 03/28/22 07/17/22 Allergy Symptoms calcium carbonate 430 mg calcium 430 mg PO TID PRN Indigestion 03/28/22 07/17/22 (1,000 mg) chewable tablet furosemide 20 mg tablet 20 mg PO DAILY 03/28/22 07/17/22 lamotrigine 100 mg tablet 100 mg PO BEDTIME 03/28/22 07/17/22 (Lamictal) lamotrigine 25 mg tablet (Lamictal) 25 mg PO BEDTIME 03/28/22 07/17/22 menthol 4 % topical gel (Biofreeze 1 appl topical BID 03/28/22 07/17/22 (menthol)) menthol 4 % topical gel (Biofreeze 1 appl topical Q2H PRN Pain (Scale 03/28/22 07/17/22 (menthol)) Score 1-3) nitroglycerin 0.4 mg sublingual 0.4 mg sublingual Q5M PRN Chest 03/28/22 07/17/22 tablet Pain polyvinyl alcohol 1.4 % eye drops 1 drp ophthalmic (eye) DAILY 03/28/22 07/17/22 pseudoephedrine-guaifenesin ER 60 1 tab PO BID PRN Congestion 03/28/22 07/17/22 mg-600 mg tablet,extend release 12hr (Mucus D) sertraline 100 mg tablet 100 mg PO DAILY 03/28/22 07/17/22 tramadol 100 mg tablet 100 mg PO Q6H PRN Back Pain 03/28/22 07/17/22 acetaminophen 325 mg tablet 650 mg PO DAILY PRN HEADACHE, 07/17/22 07/17/22 VALERY > 100.4, BODY ACHES baclofen 20 mg tablet 20 mg PO BID 07/17/22 07/17/22 budesonide-formoterol HFA 160 2 puff inhalation BID 07/17/22 07/17/22 mcg-4.5 mcg/actuation aerosol inhaler (Symbicort) buspirone 15 mg tablet 1 tab PO TID 07/17/22 07/17/22 mirtazapine 15 mg tablet (Remeron) 1 tab PO BEDTIME 07/17/22 07/17/22 sennosides 8.6 mg tablet (senna) 8.6 mg PO BID 07/17/22 07/17/22 umeclidinium 62.5 mcg/actuation 1 inh inhalation DAILY 07/17/22 07/17/22 blister powder for inhalation (Incruse Ellipta) Previous Rx's Medication Instructions Recorded clonidine HCl 0.1 mg tablet 0.1 mg PO TID #90 tabs 07/23/22 haloperidol 5 mg tablet 5 mg PO TID #90 tabs 07/23/22 lorazepam 0.5 mg tablet (Ativan) 0.5 mg PO BID PRN anxiety #30 tabs 07/23/22 olanzapine 10 mg tablet 10 mg PO TID PRN agitation #90 tabs 07/23/22 Allergies Allergy/AdvReac Type Severity Reaction Status Date / Time No Known Allergies Allergy Verified 12/15/21 14:53 Review of Systems Review of Systems: Unable to obtain secondary to mental status [facility] Past Medical History Medical History Afib Anxiety disorder CHF (congestive heart failure) Cognitive disorder COPD (chronic obstructive pulmonary disease) CVA (cerebrovascular accident) Traumatic brain injury Social History Social History Housing: Half-Way Alcohol intake: former Patient Tobacco Use Status: Former Tobacco user Advance Directives: Yes Advance Directives on File: Yes Advance Directives Date on File: 11/11/21 service: No Current occupational status: disabled Physical Exam ED Vital Signs: Vital Signs - 24 hr 08/05/22 11:14 08/05/22 12:07 08/05/22 12:23 Temperature 96.0 F L 97.7 F Pulse Rate 72 71 77 Respiratory Rate 18 15 20 Blood Pressure 89/65 L 108/65 Pulse Oximetry 89 L 94 Oxygen Delivery Method Nasal Cannula Oxygen Flow Rate 08/05/22 13:20 08/05/22 14:56 Temperature 99.1 F Pulse Rate 76 87 Respiratory Rate 19 18 Blood Pressure 101/66 116/74 Pulse Oximetry 97 92 Oxygen Delivery Method Nasal Cannula Nasal Cannula Oxygen Flow Rate 3 3 BMI result Body Mass Index 41.0 Const Other: Patient is awake but lethargic. Hypotensive and hypoxic as noted. Resp Other: Bilateral rhonchi and rales. Fair air entry Cardio Other: Rate in the 80s but irregularly irregular without murmurs rubs or gallops GI Other: Soft and nondistended. No obvious tenderness Skin Other: Warm pink and dry Medications Administered Generic Name Dose Route Start Last Admin Trade Name Freq PRN Reason Stop Dose Admin Vancomycin HCl 2,000 mg in 520 mls @ 260 mls/hr 08/05/22 13:45 08/05/22 15:01 Vancomycin/Ns IV 08/05/22 15:44 260 mls/hr ONCE ONE Administration Discontinued Medications Generic Name Dose Route Start Last Admin Trade Name Marcel PRN Reason Stop Dose Admin Albuterol Sulfate 5 mg 08/05/22 12:07 08/05/22 12:22 Albuterol Sulfate (0.083%) 2.5 Mg/3 Ml Vial.Neb INHALE 08/05/22 12:08 5 mg ONCE ONE Administration Sodium Chloride 3,674.1 mls @ 3,674.1 mls/hr 08/05/22 12:03 08/05/22 13:19 Ns 30 ml/kg infuse over 1 hr (3674.1 ml) 08/05/22 13:02 Infused IV Infusion .Q1H STA Piperacillin Sod/Tazobactam 50 mls @ 100 mls/hr 08/05/22 12:03 08/05/22 12:30 Sod 3.375 gm/ Sodium Chloride IV 08/05/22 12:32 Infused ONCE ONE Infusion Albumin Human 100 mls @ 133.333 mls/hr 08/05/22 13:15 08/05/22 13:55 Kedbumin 25 % IV 08/05/22 14:59 Infused Q1H OCHOA Infusion Iohexol 100 ml 08/05/22 13:57 08/05/22 13:57 Iohexol 350 Mg/Ml 100 Ml Infus..Btl IV 08/05/22 13:58 65 ml ONCE ONE Administration Methylprednisolone Sodium Succinate 125 mg 08/05/22 12:07 08/05/22 12:16 Methylprednisolone Sod Succ 125 Mg/2 Ml Vial IVPUSH 08/05/22 12:08 125 mg ONCE ONE Administration Medical Decision Making Medical Decision Making MDM Narrative: Patient with altered mental status in the setting of hypotension and hypoxia. He is at risk for aspiration pneumonia as well as other respiratory infections. Sepsis is probable. CHF possible but less likely. Respiratory viral infection such as COVID-19 possible. Will treat with IV fluids, a sepsis bundle at 30 mL/kilos. Will treat with broad-spectrum antibiotics including Zosyn and vancomycin as patient is from alf environment. Solu-Medrol Albuterol 13:11. Patient with transient improvement with IV fluid bolus but now trending down words with his systolic blood pressure again. Will order IV albumin and reassessed. 15:43. Patient's blood pressures been stable after the albumin. Is O2 sat is improved as well after treatment. CT scan of the chest shows no evidence of pulmonary embolism. Does show edema pattern, however, his BNP is normal and his respiratory status is improved after large amounts of IV fluid. This does not seem consistent with congestive heart failure. Possibly diffuse pneumonitis or other infectious pattern given he is now has a low-grade temperature of 99.1 degrees. Will continue with current plan and hospitalize for further treatment and observation of hemodynamic status Lab Data 08/05/22 11:50 08/05/22 11:50 Labs: Lab Results 08/05/22 08/05/22 08/05/22 Range/Units 11:48 11:48 11:49 WBC (4.8-10.8) X10*3/uL RBC (4.60-5.80) X10*6/uL Hgb (14.0-18.0) g/dl Hct (42.0-52.0) % MCV (80.0-98.0) fL MCH (27.0-33.0) pg MCHC (31.0-36.0) g/dl RDW (11.0-16.0) % Plt Count (160-400) X10*3/uL MPV (9.4-12.4) fL Immature Gran % (Auto) (0.0-0.4) % Neut % (Auto) (45-73) % Lymph % (Auto) (20-40) % Mclennan % (Auto) (2-11) % Eos % (Auto) (0-4) % Baso % (Auto) (0-2) % Lymph # (Auto) (1.2-4.9) X10*3/uL Mclennan # (Auto) (0.1-1.2) X10*3/uL Eos # (Auto) (0.0-0.4) X10*3/uL Baso # (Auto) (0.0-0.2) X10*3/uL Abs Immat Gran (auto) (0.00-0.03) X10*3/uL Absolute Neuts (auto) (2.0-8.3) x10*3/uL Absolute Nucleated RBC (0.0-0.012) X10*3/uL Nucleated RBC % (auto) (0.0-0.2) /100WBC Sodium (135-145) mmol/L Potassium (3.3-5.1) mmol/L Chloride (96-108) mmol/L Carbon Dioxide (22-29) mmol/L Anion Gap (12-20) BUN (9-16) mg/dL Creatinine (0.5-1.4) mg/dL Estim Creat Clear Calc Estimated GFR POC Glucose (60-115) mg/dL Random Glucose (60-115) mg/dL Lactic Acid (0.5-2.0) mmol/L Calcium (8.4-10.2) mg/dL Magnesium (1.6-2.6) mg/dL Total Bilirubin (0.0-1.0) mg/dL AST (5-37) U/L ALT (0-40) U/L Alkaline Phosphatase (39-117) U/L Troponin I High Sens < 3.5 D (<3.5-35.0) ng/L B-Natriuretic Peptide (<100) pg/mL Total Protein (6.5-8.0) g/dL Albumin (3.5-5.0) g/dL Urine Color Urine Appearance Urine pH (5.0-9.0) Ur Specific [place] (1.005-1.025) Urine Protein (Neg-Trace) mg/dL Urine Glucose (UA) (Negative) mg/dL Urine Ketones (Negative) mg/dL Urine Blood (Negative) Urine Nitrite (Negative) Ur Leukocyte Esterase (Negative) Urine RBC (0-2) /HPF Urine WBC (0-5) /HPF Ur Squamous Epith Cells (0-2) /HPF Urine Bacteria (None Seen) Hyaline Casts (0-2) /LPF Urine Opiates Screen (Not Detect) Urine Fentanyl Screen (Not Detect) Ur Barbiturates Screen (Not Detect) Ur Phencyclidine Scrn (Not Detect) Ur Amphetamines Screen (Not Detect) U Benzodiazepines Scrn (Not Detect) Urine Cocaine Screen (Not Detect) U Marijuana (THC) Screen (Not Detect) Ethyl Alcohol mg/dL Respiratory Panel Gary Adenovirus (Rapid PCR) (Not Detect.) B.pert (TEM-PCR) (Not Detect.) B.parapertussis DNA PCR (Not Detect.) C. pneumoniae DNA (PCR) (Not Detect.) Coronavirus OC43 (PCR) (Not Detect.) Coronavirus HKU1 (PCR) (Not Detect.) Coronavirus 229E (PCR) (Not Detect.) COVID-19 (ILIANA) Negative (Negative) COVID-19 Clin Com See Note Coronavirus NL63 (PCR) (Not Detect.) Human Metapneumovir PCR (Not Detect.) Influenza Type A (RAMONITA) Negative (Negative) Influenza A (RT-PCR) (Not Detect.) Influenza Type B (RAMONITA) Negative (Negative) Influenza B (RT-PCR) (Not Detect.) Influenza A & B Note See Note M. pneumoniae (PCR) (Not Detect.) Parainfluenza 1 (PCR) (Not Detect.) Parainfluenza 2 (PCR) (Not Detect.) Parainfluenza 3 (PCR) (Not Detect.) Parainfluenza 4 (PCR) (Not Detect.) RSV (PCR) (Not Detect.) Entero/Rhino (PCR) (Not Detect.) SARS-CoV-2 RNA (RT-PCR) (Not Detect.) 08/05/22 08/05/22 08/05/22 Range/Units 11:49 11:50 11:50 WBC 9.7 (4.8-10.8) X10*3/uL RBC 4.48 L (4.60-5.80) X10*6/uL Hgb 13.1 L (14.0-18.0) g/dl Hct 41.9 L (42.0-52.0) % MCV 93.5 (80.0-98.0) fL MCH 29.2 (27.0-33.0) pg MCHC 31.3 (31.0-36.0) g/dl RDW 14.4 (11.0-16.0) % Plt Count 266 (160-400) X10*3/uL MPV 9.9 (9.4-12.4) fL Immature Gran % (Auto) 0.9 H (0.0-0.4) % Neut % (Auto) 53.0 (45-73) % Lymph % (Auto) 38.0 (20-40) % Mclennan % (Auto) 5.7 (2-11) % Eos % (Auto) 1.8 (0-4) % Baso % (Auto) 0.6 (0-2) % Lymph # (Auto) 3.7 (1.2-4.9) X10*3/uL Mclennan # (Auto) 0.6 (0.1-1.2) X10*3/uL Eos # (Auto) 0.2 (0.0-0.4) X10*3/uL Baso # (Auto) 0.1 (0.0-0.2) X10*3/uL Abs Immat Gran (auto) 0.09 H (0.00-0.03) X10*3/uL Absolute Neuts (auto) 5.2 (2.0-8.3) x10*3/uL Absolute Nucleated RBC 0.000 (0.0-0.012) X10*3/uL Nucleated RBC % (auto) 0.0 (0.0-0.2) /100WBC Sodium 143 (135-145) mmol/L Potassium 4.3 D (3.3-5.1) mmol/L Chloride 107 (96-108) mmol/L Carbon Dioxide 29 (22-29) mmol/L Anion Gap 11 L (12-20) BUN 10 (9-16) mg/dL Creatinine 0.88 (0.5-1.4) mg/dL Estim Creat Clear Calc 120.7 Estimated GFR > 60 POC Glucose (60-115) mg/dL Random Glucose 91 (60-115) mg/dL Lactic Acid (0.5-2.0) mmol/L Calcium 8.8 (8.4-10.2) mg/dL Magnesium 2.2 (1.6-2.6) mg/dL Total Bilirubin 0.5 (0.0-1.0) mg/dL AST 14 (5-37) U/L ALT 16 (0-40) U/L Alkaline Phosphatase 115 (39-117) U/L Troponin I High Sens (<3.5-35.0) ng/L B-Natriuretic Peptide (<100) pg/mL Total Protein 6.2 L (6.5-8.0) g/dL Albumin 3.9 (3.5-5.0) g/dL Urine Color Urine Appearance Urine pH (5.0-9.0) Ur Specific [place] (1.005-1.025) Urine Protein (Neg-Trace) mg/dL Urine Glucose (UA) (Negative) mg/dL Urine Ketones (Negative) mg/dL Urine Blood (Negative) Urine Nitrite (Negative) Ur Leukocyte Esterase (Negative) Urine RBC (0-2) /HPF Urine WBC (0-5) /HPF Ur Squamous Epith Cells (0-2) /HPF Urine Bacteria (None Seen) Hyaline Casts (0-2) /LPF Urine Opiates Screen (Not Detect) Urine Fentanyl Screen (Not Detect) Ur Barbiturates Screen (Not Detect) Ur Phencyclidine Scrn (Not Detect) Ur Amphetamines Screen (Not Detect) U Benzodiazepines Scrn (Not Detect) Urine Cocaine Screen (Not Detect) U Marijuana (THC) Screen (Not Detect) Ethyl Alcohol < 10 mg/dL Respiratory Panel Gary Adenovirus (Rapid PCR) (Not Detect.) B.pert (TEM-PCR) (Not Detect.) B.parapertussis DNA PCR (Not Detect.) C. pneumoniae DNA (PCR) (Not Detect.) Coronavirus OC43 (PCR) (Not Detect.) Coronavirus HKU1 (PCR) (Not Detect.) Coronavirus 229E (PCR) (Not Detect.) COVID-19 (ILIANA) (Negative) COVID-19 Clin Com Coronavirus NL63 (PCR) (Not Detect.) Human Metapneumovir PCR (Not Detect.) Influenza Type A (RAMONITA) (Negative) Influenza A (RT-PCR) (Not Detect.) Influenza Type B (RAMONITA) (Negative) Influenza B (RT-PCR) (Not Detect.) Influenza A & B Note M. pneumoniae (PCR) (Not Detect.) Parainfluenza 1 (PCR) (Not Detect.) Parainfluenza 2 (PCR) (Not Detect.) Parainfluenza 3 (PCR) (Not Detect.) Parainfluenza 4 (PCR) (Not Detect.) RSV (PCR) (Not Detect.) Entero/Rhino (PCR) (Not Detect.) SARS-CoV-2 RNA (RT-PCR) (Not Detect.) 08/05/22 08/05/22 08/05/22 Range/Units 11:52 11:54 11:54 WBC (4.8-10.8) X10*3/uL RBC (4.60-5.80) X10*6/uL Hgb (14.0-18.0) g/dl Hct (42.0-52.0) % MCV (80.0-98.0) fL MCH (27.0-33.0) pg MCHC (31.0-36.0) g/dl RDW (11.0-16.0) % Plt Count (160-400) X10*3/uL MPV (9.4-12.4) fL Immature Gran % (Auto) (0.0-0.4) % Neut % (Auto) (45-73) % Lymph % (Auto) (20-40) % Mclennan % (Auto) (2-11) % Eos % (Auto) (0-4) % Baso % (Auto) (0-2) % Lymph # (Auto) (1.2-4.9) X10*3/uL Mclennan # (Auto) (0.1-1.2) X10*3/uL Eos # (Auto) (0.0-0.4) X10*3/uL Baso # (Auto) (0.0-0.2) X10*3/uL Abs Immat Gran (auto) (0.00-0.03) X10*3/uL Absolute Neuts (auto) (2.0-8.3) x10*3/uL Absolute Nucleated RBC (0.0-0.012) X10*3/uL Nucleated RBC % (auto) (0.0-0.2) /100WBC Sodium (135-145) mmol/L Potassium (3.3-5.1) mmol/L Chloride (96-108) mmol/L Carbon Dioxide (22-29) mmol/L Anion Gap (12-20) BUN (9-16) mg/dL Creatinine (0.5-1.4) mg/dL Estim Creat Clear Calc Estimated GFR POC Glucose (60-115) mg/dL Random Glucose (60-115) mg/dL Lactic Acid 1.2 (0.5-2.0) mmol/L Calcium (8.4-10.2) mg/dL Magnesium (1.6-2.6) mg/dL Total Bilirubin (0.0-1.0) mg/dL AST (5-37) U/L ALT (0-40) U/L Alkaline Phosphatase (39-117) U/L Troponin I High Sens (<3.5-35.0) ng/L B-Natriuretic Peptide (<100) pg/mL Total Protein (6.5-8.0) g/dL Albumin (3.5-5.0) g/dL Urine Color Yellow Urine Appearance Cloudy Urine pH 7.5 (5.0-9.0) Ur Specific [place] 1.015 (1.005-1.025) Urine Protein Negative (Neg-Trace) mg/dL Urine Glucose (UA) Negative (Negative) mg/dL Urine Ketones Negative (Negative) mg/dL Urine Blood Negative (Negative) Urine Nitrite Negative (Negative) Ur Leukocyte Esterase Trace H (Negative) Urine RBC 0-2 (0-2) /HPF Urine WBC 11-20 H (0-5) /HPF Ur Squamous Epith Cells 6-10 (0-2) /HPF Urine Bacteria 4+ (None Seen) Hyaline Casts 0-2 (0-2) /LPF Urine Opiates Screen Not Detected (Not Detect) Urine Fentanyl Screen POSITIVE H (Not Detect) Ur Barbiturates Screen Not Detected (Not Detect) Ur Phencyclidine Scrn Not Detected (Not Detect) Ur Amphetamines Screen Not Detected (Not Detect) U Benzodiazepines Scrn Not Detected (Not Detect) Urine Cocaine Screen Not Detected (Not Detect) U Marijuana (THC) Screen Not Detected (Not Detect) Ethyl Alcohol mg/dL Respiratory Panel Gary Adenovirus (Rapid PCR) (Not Detect.) B.pert (TEM-PCR) (Not Detect.) B.parapertussis DNA PCR (Not Detect.) C. pneumoniae DNA (PCR) (Not Detect.) Coronavirus OC43 (PCR) (Not Detect.) Coronavirus HKU1 (PCR) (Not Detect.) Coronavirus 229E (PCR) (Not Detect.) COVID-19 (ILIANA) (Negative) COVID-19 Clin Com Coronavirus NL63 (PCR) (Not Detect.) Human Metapneumovir PCR (Not Detect.) Influenza Type A (RAMONITA) (Negative) Influenza A (RT-PCR) (Not Detect.) Influenza Type B (RAMONITA) (Negative) Influenza B (RT-PCR) (Not Detect.) Influenza A & B Note M. pneumoniae (PCR) (Not Detect.) Parainfluenza 1 (PCR) (Not Detect.) Parainfluenza 2 (PCR) (Not Detect.) Parainfluenza 3 (PCR) (Not Detect.) Parainfluenza 4 (PCR) (Not Detect.) RSV (PCR) (Not Detect.) Entero/Rhino (PCR) (Not Detect.) SARS-CoV-2 RNA (RT-PCR) (Not Detect.) 08/05/22 08/05/22 08/05/22 Range/Units 11:54 11:55 12:23 WBC (4.8-10.8) X10*3/uL RBC (4.60-5.80) X10*6/uL Hgb (14.0-18.0) g/dl Hct (42.0-52.0) % MCV (80.0-98.0) fL MCH (27.0-33.0) pg MCHC (31.0-36.0) g/dl RDW (11.0-16.0) % Plt Count (160-400) X10*3/uL MPV (9.4-12.4) fL Immature Gran % (Auto) (0.0-0.4) % Neut % (Auto) (45-73) % Lymph % (Auto) (20-40) % Mclennan % (Auto) (2-11) % Eos % (Auto) (0-4) % Baso % (Auto) (0-2) % Lymph # (Auto) (1.2-4.9) X10*3/uL Mclennan # (Auto) (0.1-1.2) X10*3/uL Eos # (Auto) (0.0-0.4) X10*3/uL Baso # (Auto) (0.0-0.2) X10*3/uL Abs Immat Gran (auto) (0.00-0.03) X10*3/uL Absolute Neuts (auto) (2.0-8.3) x10*3/uL Absolute Nucleated RBC (0.0-0.012) X10*3/uL Nucleated RBC % (auto) (0.0-0.2) /100WBC Sodium (135-145) mmol/L Potassium (3.3-5.1) mmol/L Chloride (96-108) mmol/L Carbon Dioxide (22-29) mmol/L Anion Gap (12-20) BUN (9-16) mg/dL Creatinine (0.5-1.4) mg/dL Estim Creat Clear Calc Estimated GFR POC Glucose 89 (60-115) mg/dL Random Glucose (60-115) mg/dL Lactic Acid (0.5-2.0) mmol/L Calcium (8.4-10.2) mg/dL Magnesium (1.6-2.6) mg/dL Total Bilirubin (0.0-1.0) mg/dL AST (5-37) U/L ALT (0-40) U/L Alkaline Phosphatase (39-117) U/L Troponin I High Sens (<3.5-35.0) ng/L B-Natriuretic Peptide 53 (<100) pg/mL Total Protein (6.5-8.0) g/dL Albumin (3.5-5.0) g/dL Urine Color Urine Appearance Urine pH (5.0-9.0) Ur Specific [place] (1.005-1.025) Urine Protein (Neg-Trace) mg/dL Urine Glucose (UA) (Negative) mg/dL Urine Ketones (Negative) mg/dL Urine Blood (Negative) Urine Nitrite (Negative) Ur Leukocyte Esterase (Negative) Urine RBC (0-2) /HPF Urine WBC (0-5) /HPF Ur Squamous Epith Cells (0-2) /HPF Urine Bacteria (None Seen) Hyaline Casts (0-2) /LPF Urine Opiates Screen (Not Detect) Urine Fentanyl Screen (Not Detect) Ur Barbiturates Screen (Not Detect) Ur Phencyclidine Scrn (Not Detect) Ur Amphetamines Screen (Not Detect) U Benzodiazepines Scrn (Not Detect) Urine Cocaine Screen (Not Detect) U Marijuana (THC) Screen (Not Detect) Ethyl Alcohol mg/dL Respiratory Panel Gary See Note Adenovirus (Rapid PCR) Not Detected (Not Detect.) B.pert (TEM-PCR) Not Detected (Not Detect.) B.parapertussis DNA PCR Not Detected (Not Detect.) C. pneumoniae DNA (PCR) Not Detected (Not Detect.) Coronavirus OC43 (PCR) Not Detected (Not Detect.) Coronavirus HKU1 (PCR) Not Detected (Not Detect.) Coronavirus 229E (PCR) Not Detected (Not Detect.) COVID-19 (ILIANA) (Negative) COVID-19 Clin Com Coronavirus NL63 (PCR) Not Detected (Not Detect.) Human Metapneumovir PCR Not Detected (Not Detect.) Influenza Type A ([place]ONITA) (Negative) Influenza A (RT-PCR) Not Detected (Not Detect.) Influenza Type B (RAMONITA) (Negative) Influenza B (RT-PCR) Not Detected (Not Detect.) Influenza A & B Note M. pneumoniae (PCR) Not Detected (Not Detect.) Parainfluenza 1 (PCR) Not Detected (Not Detect.) Parainfluenza 2 (PCR) Not Detected (Not Detect.) Parainfluenza 3 (PCR) Not Detected (Not Detect.) Parainfluenza 4 (PCR) Not Detected (Not Detect.) RSV (PCR) Not Detected (Not Detect.) Entero/Rhino (PCR) Not Detected (Not Detect.) SARS-CoV-2 RNA (RT-PCR) Not Detected (Not Detect.) Critical Care Time Critical Care Time Critical Care Time: Yes Total Critical Care Time: 120 Attestation: Critical care time outside of separately billable procedures and is secondary to hypotension and hypoxia in the setting of probable pneumonia and sepsis Discharge Plan Discharge Patient Disposition: Admitted As Inpatient Prescriptions: No Action lorazepam [Ativan] 1 mg tablet 1 tab PO BEDTIME melatonin 5 mg capsule 2 cap PO BEDTIME mirtazapine 15 mg Tablet 15 mg PO BEDTIME atorvastatin 40 mg Tablet 40 mg PO BEDTIME gabapentin 400 mg Capsule 400 mg TID pantoprazole 40 mg Tablet,Delayed Release (Dr/Ec) 40 mg PO DAILY@0630 metoprolol tartrate 50 mg Tablet 50 mg PO BID Rx Instructions: HOLD IF SBP < 100 OR > 140 HOLD IF HR < 60 OR > 100 cetirizine 10 mg Tablet 10 mg PO DAILY docusate sodium 100 mg Capsule 100 mg PO BID furosemide 20 mg Tablet 20 mg PO DAILY PRN (Reason: fluid overload) Rx Instructions: NEEDED FOR WEIGHT GAIN > 3 POUNDS finasteride 5 mg Tablet 5 mg PO DAILY Xarelto 20 mg Tablet 20 mg PO BEDTIME Rx Instructions: must administer with evening meal midodrine 5 mg tablet 1 tab PO TIDAC azelastine 0.05 % Drops 1 drp OPHTHALMIC (EYE) BID PRN (Reason: Allergy Symptoms) acetaminophen 325 mg Tablet 650 mg PO TID albuterol sulfate 2.5 mg /3 mL (0.083 %) Solution For Nebulization 2.5 mg INHALATION TID PRN (Reason: Shortness Of Breath) polyvinyl alcohol 1.4 % Drops 1 drp OPHTHALMIC (EYE) DAILY sertraline 100 mg Tablet 100 mg PO DAILY Rx Instructions: tdd = 150 mg pseudoephedrine-guaifenesin [Mucus D] 60-600 mg Tablet Extended Release 12 Hr 1 tab PO BID PRN (Reason: Congestion) lamotrigine [Lamictal] 25 mg Tablet 25 mg PO BEDTIME Rx Instructions: tdd = 125 mg nitroglycerin 0.4 mg Tablet, Sublingual 0.4 mg SUBLINGUAL Q5M PRN (Reason: Chest Pain) Rx Instructions: do not exceed 3 doses per episode Biofreeze (menthol) 4 % Gel 1 appl TOPICAL BID Rx Instructions: apply a thin layer mid to lower back Biofreeze (menthol) 4 % Gel 1 appl TOPICAL Q2H PRN (Reason: Pain (Scale Score 1-3)) calcium carbonate 430 mg calcium (1,000 mg) Tablet,Chewable 430 mg PO TID PRN (Reason: Indigestion) tramadol 100 mg Tablet 100 mg PO Q6H PRN (Reason: Back Pain) furosemide 20 mg Tablet 20 mg PO DAILY Rx Instructions: HOLD FOR SBP< 100 OR > 140 HOLD IF HR < 60 OR > 100 lamotrigine [Lamictal] 100 mg Tablet 100 mg PO BEDTIME Rx Instructions: TAKE TOGETHER WITH 25 MG TAB TDD= 125 MG mirtazapine [Remeron] 15 mg tablet 1 tab PO BEDTIME buspirone 15 mg tablet 1 tab PO TID budesonide-formoterol [Symbicort] 160-4.5 mcg/actuation Hfa Aerosol Inhaler 2 puff INHALATION BID baclofen 20 mg Tablet 20 mg PO BID sennosides [senna] 8.6 mg Tablet 8.6 mg PO BID Rx Instructions: HOLD FOR LOOSE BOWEL MOVEMENT Incruse Ellipta 62.5 mcg/actuation Blister With Device 1 inh INHALATION DAILY acetaminophen 325 mg Tablet 650 mg PO DAILY PRN (Reason: HEADACHE, VALERY > 100.4, BODY ACHES ) clonidine HCl 0.1 mg Tablet 0.1 mg PO TID Qty: 90 0RF Protocol: Hold for SBP< HOLD for SBP < : 90 olanzapine 10 mg Tablet 10 mg PO TID PRN (Reason: agitation) Qty: 90 0RF haloperidol 5 mg Tablet 5 mg PO TID Qty: 90 0RF lorazepam [Ativan] 0.5 mg tablet 0.5 mg PO BID PRN (Reason: anxiety) Qty: 30 0RF
[2022-08-05 12:05] LABS: Bacteria Urine 4+ (None Seen); Hyaline Casts Urine 0-2 /LPF (0-2); RBC Urine 0-2 /HPF (0-2); UACC Culture Trigger YES
[2022-08-05 12:07] VITALS: BP 108/65; PULSE 71; RESP 15; TEMP 36.5; O2SAT 94
[2022-08-05 12:12] LABS: Amphetamine Screen Urine Not Detected (Not Detect); Barbiturates, Urine Not Detected (Not Detect); Benzodiazepines Screen Urine Not Detected (Not Detect); Cannabinoid Screen Urine Not Detected (Not Detect); Cocaine Screen Urine Not Detected (Not Detect); Fentanyl, urine POSITIVE (Not Detect); Opiate Screen Urine Not Detected (Not Detect); Phencyclidine Screen Urine Not Detected (Not Detect)
[2022-08-05 12:13] LABS: Lactic Acid 1.2 mmol/L (0.5-2.0)
[2022-08-05] MEDS: 0.9 % Sodium Chloride 3,674.1 ML 3674.1 ML IV (12:16)
[2022-08-05] MEDS: methylPREDNISolone Sod Succ 125 MG/2 ML VIAL IVPUSH (12:16)
[2022-08-05] MEDS: Piperacillin Sodium/Tazobactam 3.375 GM in 0.9 % Sodium Chloride 50 ML IV (12:17)
--- NOTE | 2022-08-05 12:17 | PC.NURSE ---
iv fluids and iv abx infusing, SBP back down to 80/57, trendelenburged for BP support again
[2022-08-05 12:19] LABS: Alanine Aminotransferase 16 U/L (0-40); Albumin Level 3.9 g/dL (3.5-5.0); Alkaline Phosphatase 115 U/L (39-117); Anion Gap 11 (12-20); Aspartate Amino Transferase 14 U/L (5-37); Bilirubin Total 0.5 mg/dL (0.0-1.0); Blood Urea Nitrogen 10 mg/dL (9-16); Calcium 8.8 mg/dL (8.4-10.2); Carbon Dioxide 29 mmol/L (22-29); Chloride 107 mmol/L (96-108); Creatinine Clr Calc Pharmacy 120.7; Estimated Glomerular Filt Rate > 60; Glucose Random 91 mg/dL (60-115); Magnesium 2.2 mg/dL (1.6-2.6); Potassium 4.3 mmol/L (3.3-5.1); Sodium 143 mmol/L (135-145); Total Protein 6.2 g/dL (6.5-8.0)
--- NOTE | 2022-08-05 12:19 | PC.NURSE ---
SBP 92/59 trendelenburg
[2022-08-05 12:22] LABS: Ethanol < 10 mg/dL
[2022-08-05 12:22] LABS: COVID-19 Test Negative (Negative); IDNOW Serial# 16C4AD1C
[2022-08-05] MEDS: Albuterol Sulfate (0.083%) 2.5 MG/3 ML VIAL.NEB 5 MG INHALE (12:22)
[2022-08-05 12:23] VITALS: PULSE 77; RESP 20; O2SAT 96
[2022-08-05 12:23] LABS: B Type Natriuretic Peptide 53 pg/mL (<100)
--- NOTE | 2022-08-05 12:25 | PC.NURSE ---
respiratory at bedside for breathing treatment
[2022-08-05 12:27] LABS: Glucose, Whole Blood 89 mg/dL (60-115)
[2022-08-05 12:27] LABS: Troponin-I High Sensitivity < 3.5 ng/L (<3.5-35.0)
[2022-08-05 12:36] LABS: IDNOW Serial# 16C4AD1C; Influenza A Negative (Negative); Influenza B2 Negative (Negative)
--- NOTE | 2022-08-05 13:09 | PC.NURSE ---
3rd bag of fluids infusing, remains 80/30,Md made aware, plan for albumin
[2022-08-05] MEDS: Albumin Human 25 % 100 ML 133.33 ML IV ×2 (13:19→13:29)
[2022-08-05 13:20] VITALS: BP 101/66; PULSE 76; RESP 19; TEMP 37.3; O2SAT 97
--- NOTE | 2022-08-05 13:56 | PC.NURSE ---
pt to CT, awaiting salazaro from pharmacy
[2022-08-05] MEDS: iohexoL 350 MG/ML 100 ML INFUS..BTL IV (13:57)
[2022-08-05 14:24] LABS: Adenovirus PCR Not Detected (Not Detect.); Bordetella parapertussis PCR Not Detected (Not Detect.); Bordetella pertussis PCR Not Detected (Not Detect.); Chlamydia pneumoniae PCR Not Detected (Not Detect.); Coronavirus 229E PCR Not Detected (Not Detect.); Coronavirus HKU1 PCR Not Detected (Not Detect.); Coronavirus NL63 PCR Not Detected (Not Detect.); Coronavirus OC43 PCR Not Detected (Not Detect.); Human metapneumovirus PCR Not Detected (Not Detect.); Influenza A PCR Not Detected (Not Detect.); Influenza B PCR Not Detected (Not Detect.); Mycoplasma pneumoniae PCR Not Detected (Not Detect.); Parainfluenza 1 PCR Not Detected (Not Detect.); Parainfluenza 2 PCR Not Detected (Not Detect.); Parainfluenza 3 PCR Not Detected (Not Detect.); Parainfluenza 4 PCR Not Detected (Not Detect.); RSV PCR Not Detected (Not Detect.); Rhino/Enterovirus PCR Not Detected (Not Detect.); SARS-CoV-2 PCR Not Detected (Not Detect.)
[2022-08-05 14:56] VITALS: BP 116/74; PULSE 87; RESP 18; O2SAT 92
--- NOTE | 2022-08-05 16:16 | P.HPHOSP_ITS ---
History of Present Illness Date of Service: 08/05/22 Chief Complaint: hypoxia, hypotension 67M PMH CVA with left hemiparesis, permanent afib, chornic diastolic chf, chronic hypoxic resp failure due to copd, mood disorder, TBI, anxiety, presented from SNF for several days cough, hypoxia to 70s. in ED found to be severely hypotensive to sbp in 60s, repsonded to iv fluids and albumin. ct chest with bilateral opacities. patient poor historian, says he feels better and wants to be discharged. Review of Systems Review of Systems: Yes all other systems are reviewed and are negative [facility] Medical History Afib Anxiety disorder CHF (congestive heart failure) Cognitive disorder COPD (chronic obstructive pulmonary disease) CVA (cerebrovascular accident) Mood disorder as late effect of traumatic brain injury Traumatic brain injury Social History Housing: [facility] Alcohol intake: former Patient Tobacco Use Status: Former Tobacco user Advance Directives: Yes Advance Directives on File: Yes Advance Directives Date on File: 11/11/21 service: No Current occupational status: disabled Meds Allergies Allergy/AdvReac Type Severity Reaction Status Date / Time No Known Allergies Allergy Verified 12/15/21 14:53 Active Medications: Current Medications Ceftriaxone Sodium 1 gm/ (Sodium Chloride) 50 mls @ 100 mls/hr IV Q24H [facility] Pharmacy Consult (Consult Rx Perform Med Rec) 1 each MISCELLANE ONCE PRN PRN Reason: Consult order Prednisone (Prednisone 20 Mg Tablet) 40 mg PO DAILY [facility] Sodium Chloride (0.9 % Sodium Chloride Flush 3 Ml Syringe) 3 ml IVFLUSH QSHIFT [facility] Home Medications Medication Instructions Recorded Confirmed Last Taken Type atorvastatin 40 mg tablet 40 mg PO BEDTIME 02/28/22 07/17/22 Unknown History gabapentin 400 mg capsule 400 mg TID 02/28/22 07/17/22 Unknown History lorazepam 1 mg tablet (Ativan) 1 tab PO BEDTIME 02/28/22 07/17/22 Unknown History melatonin 5 mg capsule 2 cap PO BEDTIME 02/28/22 07/17/22 Unknown History metoprolol tartrate 50 mg tablet 50 mg PO BID 02/28/22 07/17/22 Unknown History mirtazapine 15 mg tablet 15 mg PO BEDTIME 02/28/22 07/17/22 Unknown History pantoprazole 40 mg tablet,delayed 40 mg PO DAILY@0630 02/28/22 07/17/22 Unknown History release cetirizine 10 mg tablet 10 mg PO DAILY 03/01/22 07/17/22 Unknown History docusate sodium 100 mg capsule 100 mg PO BID 03/01/22 07/17/22 Unknown History finasteride 5 mg tablet 5 mg PO DAILY 03/01/22 07/17/22 Unknown History furosemide 20 mg tablet 20 mg PO DAILY PRN fluid overload 03/01/22 07/17/22 Unknown History midodrine 5 mg tablet 1 tab PO TIDAC 03/01/22 07/17/22 Unknown History rivaroxaban 20 mg tablet (Xarelto) 20 mg PO BEDTIME 03/01/22 07/17/22 Unknown History acetaminophen 325 mg tablet 650 mg PO TID 03/28/22 07/17/22 Unknown History albuterol sulfate 2.5 mg/3 mL 2.5 mg inhalation TID PRN 03/28/22 07/17/22 Unknown History (0.083 %) solution for nebulization Shortness Of Breath azelastine 0.05 % eye drops 1 drp ophthalmic (eye) BID PRN 03/28/22 07/17/22 Unknown History Allergy Symptoms calcium carbonate 430 mg calcium 430 mg PO TID PRN Indigestion 03/28/22 07/17/22 Unknown History (1,000 mg) chewable tablet furosemide 20 mg tablet 20 mg PO DAILY 03/28/22 07/17/22 Unknown History lamotrigine 100 mg tablet 100 mg PO BEDTIME 03/28/22 07/17/22 Unknown History (Lamictal) lamotrigine 25 mg tablet (Lamictal) 25 mg PO BEDTIME 03/28/22 07/17/22 Unknown History menthol 4 % topical gel (Biofreeze 1 appl topical BID 03/28/22 07/17/22 Unknown History (menthol)) menthol 4 % topical gel (Biofreeze 1 appl topical Q2H PRN Pain (Scale 03/28/22 07/17/22 Unknown History (menthol)) Score 1-3) nitroglycerin 0.4 mg sublingual 0.4 mg sublingual Q5M PRN Chest 03/28/22 07/17/22 Unknown History tablet Pain polyvinyl alcohol 1.4 % eye drops 1 drp ophthalmic (eye) DAILY 03/28/22 07/17/22 Unknown History pseudoephedrine-guaifenesin ER 60 1 tab PO BID PRN Congestion 03/28/22 07/17/22 Unknown History mg-600 mg tablet,extend release 12hr (Mucus D) sertraline 100 mg tablet 100 mg PO DAILY 03/28/22 07/17/22 Unknown History tramadol 100 mg tablet 100 mg PO Q6H PRN Back Pain 03/28/22 07/17/22 Unknown History acetaminophen 325 mg tablet 650 mg PO DAILY PRN HEADACHE, 07/17/22 07/17/22 Unknown History VALERY > 100.4, BODY ACHES baclofen 20 mg tablet 20 mg PO BID 07/17/22 07/17/22 Unknown History budesonide-formoterol HFA 160 2 puff inhalation BID 07/17/22 07/17/22 Unknown History mcg-4.5 mcg/actuation aerosol inhaler (Symbicort) buspirone 15 mg tablet 1 tab PO TID 07/17/22 07/17/22 Unknown History mirtazapine 15 mg tablet (Remeron) 1 tab PO BEDTIME 07/17/22 07/17/22 Unknown Hi story sennosides 8.6 mg tablet (senna) 8.6 mg PO BID 07/17/22 07/17/22 Unknown History umeclidinium 62.5 mcg/actuation 1 inh inhalation DAILY 07/17/22 07/17/22 Unknown History blister powder for inhalation (Incruse Ellipta) Physical Exam Vital Signs and Narrative: Vital Signs: Last Vital Signs Temp 99.1 F 08/05/22 13:20 Pulse 87 08/05/22 14:56 Resp 18 08/05/22 14:56 BP 116/74 08/05/22 14:56 Pulse Ox 92 08/05/22 14:56 O2 Del Method 08/05/22 14:56 O2 Flow Rate 3 08/05/22 14:56 Oxygen Flow Rate 3 08/05/22 11:14 BMI result Body Mass Index 41.0 General: AO X 2, agitated Resp: Crackles bilateral CVS: S1,S2,RRR GI: soft, non tender, non distended Neuro: left hemiparesis Psych: impaired insight Results Labs 08/05/22 11:50 08/05/22 11:50 Labs: Laboratory Results - last 24 hr 08/05/22 08/05/22 08/05/22 11:48 11:48 11:49 MCV MCH MCHC RDW Plt Count MPV Immature Gran % (Auto) Neut % (Auto) Lymph % (Auto) Harper % (Auto) Eos % (Auto) Baso % (Auto) Lymph # (Auto) Harper # (Auto) Eos # (Auto) Baso # (Auto) Abs Immat Gran (auto) Absolute Neuts (auto) Absolute Nucleated RBC Nucleated RBC % (auto) Anion Gap Estim Creat Clear Calc Estimated GFR POC Glucose Random Glucose Lactic Acid Calcium Magnesium Total Bilirubin AST ALT Alkaline Phosphatase Troponin I High Sens < 3.5 D B-Natriuretic Peptide Total Protein Albumin Urine Color Urine Appearance Urine pH Ur Specific [place] Urine Protein Urine Glucose (UA) Urine Ketones Urine Blood Urine Nitrite Ur Leukocyte Esterase Urine RBC Urine WBC Ur Squamous Epith Cells Urine Bacteria Hyaline Casts Urine Opiates Screen Urine Fentanyl Screen Ur Barbiturates Screen Ur Phencyclidine Scrn Ur Amphetamines Screen U Benzodiazepines Scrn Urine Cocaine Screen U Marijuana (THC) Screen Ethyl Alcohol Respiratory Panel Gary Adenovirus (Rapid PCR) B.pert (TEM-PCR) B.parapertussis DNA PCR C. pneumoniae DNA (PCR) Coronavirus OC43 (PCR) Coronavirus HKU1 (PCR) Coronavirus 229E (PCR) COVID-19 (ILIANA) Negative COVID-19 Clin Com See Note Coronavirus NL63 (PCR) Human Metapneumovir PCR Influenza Type A (RAMONITA) Negative Influenza A (RT-PCR) Influenza Type B (RAMONITA) Negative Influenza B (RT-PCR) Influenza A & B Note See Note M. pneumoniae (PCR) Parainfluenza 1 (PCR) Parainfluenza 2 (PCR) Parainfluenza 3 (PCR) Parainfluenza 4 (PCR) RSV (PCR) Entero/Rhino (PCR) SARS-CoV-2 RNA (RT-PCR) 08/05/22 08/05/22 08/05/22 11:49 11:50 11:50 MCV 93.5 MCH 29.2 MCHC 31.3 RDW 14.4 Plt Count 266 MPV 9.9 Immature Gran % (Auto) 0.9 H Neut % (Auto) 53.0 Lymph % (Auto) 38.0 Harper % (Auto) 5.7 Eos % (Auto) 1.8 Baso % (Auto) 0.6 Lymph # (Auto) 3.7 Harper # (Auto) 0.6 Eos # (Auto) 0.2 Baso # (Auto) 0.1 Abs Immat Gran (auto) 0.09 H Absolute Neuts (auto) 5.2 Absolute Nucleated RBC 0.000 Nucleated RBC % (auto) 0.0 Anion Gap 11 L Estim Creat Clear Calc 120.7 Estimated GFR > 60 POC Glucose Random Glucose 91 Lactic Acid Calcium 8.8 Magnesium 2.2 Total Bilirubin 0.5 AST 14 ALT 16 Alkaline Phosphatase 115 Troponin I High Sens B-Natriuretic Peptide Total Protein 6.2 L Albumin 3.9 Urine Color Urine Appearance Urine pH Ur Specific [place] Urine Protein Urine Glucose (UA) Urine Ketones Urine Blood Urine Nitrite Ur Leukocyte Esterase Urine RBC Urine WBC Ur Squamous Epith Cells Urine Bacteria Hyaline Casts Urine Opiates Screen Urine Fentanyl Screen Ur Barbiturates Screen Ur Phencyclidine Scrn Ur Amphetamines Screen U Benzodiazepines Scrn Urine Cocaine Screen U Marijuana (THC) Screen Ethyl Alcohol < 10 Respiratory Panel Gary Adenovirus (Rapid PCR) B.pert (TEM-PCR) B.parapertussis DNA PCR C. pneumoniae DNA (PCR) Coronavirus OC43 (PCR) Coronavirus HKU1 (PCR) Coronavirus 229E (PCR) COVID-19 (ILIANA) COVID-19 Clin Com Coronavirus NL63 (PCR) Human Metapneumovir PCR Influenza Type A (RAMONITA) Influenza A (RT-PCR) Influenza Type B (RAMONITA) Influenza B (RT-PCR) Influenza A & B Note M. pneumoniae (PCR) Parainfluenza 1 (PCR) Parainfluenza 2 (PCR) Parainfluenza 3 (PCR) Parainfluenza 4 (PCR) RSV (PCR) Entero/Rhino (PCR) SARS-CoV-2 RNA (RT-PCR) 08/05/22 08/05/22 08/05/22 11:52 11:54 11:54 MCV MCH MCHC RDW Plt Count MPV Immature Gran % (Auto) Neut % (Auto) Lymph % (Auto) Harper % (Auto) Eos % (Auto) Baso % (Auto) Lymph # (Auto) Harper # (Auto) Eos # (Auto) Baso # (Auto) Abs Immat Gran (auto) Absolute Neuts (auto) Absolute Nucleated RBC Nucleated RBC % (auto) Anion Gap Estim Creat Clear Calc Estimated GFR POC Glucose Random Glucose Lactic Acid 1.2 Calcium Magnesium Total Bilirubin AST ALT Alkaline Phosphatase Troponin I High Sens B-Natriuretic Peptide Total Protein Albumin Urine Color Yellow Urine Appearance Cloudy Urine pH 7.5 Ur Specific [place] 1.015 Urine Protein Negative Urine Glucose (UA) Negative Urine Ketones Negative Urine Blood Negative Urine Nitrite Negative Ur Leukocyte Esterase Trace H Urine RBC 0-2 Urine WBC 11-20 H Ur Squamous Epith Cells 6-10 Urine Bacteria 4+ Hyaline Casts 0-2 Urine Opiates Screen Not Detected Urine Fentanyl Screen POSITIVE H Ur Barbiturates Screen Not Detected Ur Phencyclidine Scrn Not Detected Ur Amphetamines Screen Not Detected U Benzodiazepines Scrn Not Detected Urine Cocaine Screen Not Detected U Marijuana (THC) Screen Not Detected Ethyl Alcohol Respiratory Panel Gary Adenovirus (Rapid PCR) B.pert (TEM-PCR) B.parapertussis DNA PCR C. pneumoniae DNA (PCR) Coronavirus OC43 (PCR) Coronavirus HKU1 (PCR) Coronavirus 229E (PCR) COVID-19 (ILIANA) COVID-19 Clin Com Coronavirus NL63 (PCR) Human Metapneumovir PCR Influenza Type A (RAMONITA) Influenza A (RT-PCR) Influenza Type B (RAMONITA) Influenza B (RT-PCR) Influenza A & B Note M. pneumoniae (PCR) Parainfluenza 1 (PCR) Parainfluenza 2 (PCR) Parainfluenza 3 (PCR) Parainfluenza 4 (PCR) RSV (PCR) Entero/Rhino (PCR) SARS-CoV-2 RNA (RT-PCR) 08/05/22 08/05/22 08/05/22 11:54 11:55 12:23 MCV MCH MCHC RDW Plt Count MPV Immature Gran % (Auto) Neut % (Auto) Lymph % (Auto) Harper % (Auto) Eos % (Auto) Baso % (Auto) Lymph # (Auto) Harper # (Auto) Eos # (Auto) Baso # (Auto) Abs Immat Gran (auto) Absolute Neuts (auto) Absolute Nucleated RBC Nucleated RBC % (auto) Anion Gap Estim Creat Clear Calc Estimated GFR POC Glucose 89 Random Glucose Lactic Acid Calcium Magnesium Total Bilirubin AST ALT Alkaline Phosphatase Troponin I High Sens B-Natriuretic Peptide 53 Total Protein Albumin Urine Color Urine Appearance Urine pH Ur Specific [place] Urine Protein Urine Glucose (UA) Urine Ketones Urine Blood Urine Nitrite Ur Leukocyte Esterase Urine RBC Urine WBC Ur Squamous Epith Cells Urine Bacteria Hyaline Casts Urine Opiates Screen Urine Fentanyl Screen Ur Barbiturates Screen Ur Phencyclidine Scrn Ur Amphetamines Screen U Benzodiazepines Scrn Urine Cocaine Screen U Marijuana (THC) Screen Ethyl Alcohol Respiratory Panel Gary See Note Adenovirus (Rapid PCR) Not Detected B.pert (TEM-PCR) Not Detected B.parapertussis DNA PCR Not Detected C. pneumoniae DNA (PCR) Not Detected Coronavirus OC43 (PCR) Not Detected Coronavirus HKU1 (PCR) Not Detected Coronavirus 229E (PCR) Not Detected COVID-19 (ILIANA) COVID-19 Clin Com Coronavirus NL63 (PCR) Not Detected Human Metapneumovir PCR Not Detected Influenza Type A (RAMONITA) Influenza A (RT-PCR) Not Detected Influenza Type B (RAMONITA) Influenza B (RT-PCR) Not Detected Influenza A & B Note M. pneumoniae (PCR) Not Detected Parainfluenza 1 (PCR) Not Detected Parainfluenza 2 (PCR) Not Detected Parainfluenza 3 (PCR) Not Detected Parainfluenza 4 (PCR) Not Detected RSV (PCR) Not Detected Entero/Rhino (PCR) Not Detected SARS-CoV-2 RNA (RT-PCR) Not Detected Imaging Radiologist's Impressions: Impressions Chest X-Ray 08/05/22 12:45 IMPRESSION: Stable congestive change. Chest CTA 08/05/22 13:55 IMPRESSION: No evidence for acute PE. There is an edema pattern in the lungs VTE: negative Assessment and Plan (1) Sepsis associated hypotension: Status: Acute Plan 67M PMH CVA with left hemiparesis, permanent afib, chornic diastolic chf, chronic hypoxic resp failure due to copd, mood disorder, TBI, anxiety, presented from SNF for several days cough, hypoxia to 70s acute on chronic hypoxic respiratory failure ?sepsis due to aspiration pneumonia vs pnuemonitis [place], [employer], wean o2 copd with acute decompensation steroids, nebs permanent afib xarelto mood disorder due to tbi continue mood stablizers history of cva left hemiparesis xarelto chronic diastolic chf hodling lasix for hypovolemia dvt prophylaxis - xarelto dnr/dni patient with severe hypoxia and hyoptension, at risk for further decompensation based on severity of initial symptoms and signs, therefore, expected to require atleast 2 midnights inpatient Time Spent With Patient Time: Total time managing care of this patient today ____ minutes. Quality Stroke Does the patient have a stroke diagnosis?: No VTE Prior VTE?: No VTE Risk Level:: Medical - moderate - high VTE Device Contraindication: Treatment Not Indicated VTE Drug Contraindication: N/A - Med Ordered
--- NOTE | 2022-08-05 17:41 | PHA.MEDREC ---
Pharmacy Consult ? Medication Reconciliation Pharmacy has completed the medication reconciliation. list from skilled nursing
[2022-08-05] MEDS: OLANZapine 10 MG TABLET PO (18:42)
[2022-08-05] MEDS: Baclofen 20 MG TABLET PO (20:26)
[2022-08-05] MEDS: Gabapentin 400 MG CAPSULE PO (20:27)
[2022-08-05] MEDS: busPIRone HCl 5 MG TABLET 15 MG PO (20:28)
[2022-08-05] MEDS: HaloperidoL 5 MG TABLET PO (20:28)
[2022-08-05] MEDS: Rivaroxaban 20 MG TABLET PO (20:29)
[2022-08-05] MEDS: LORazepam 1 MG TABLET PO (20:29)
[2022-08-05] MEDS: lamoTRIgine 100 MG TABLET PO (20:30)
[2022-08-05] MEDS: Mirtazapine 15 MG TABLET PO (20:31)
[2022-08-05] MEDS: Metoprolol Tartrate 50 MG TABLET PO (20:32)
[2022-08-05] MEDS: lamoTRIgine 25 MG TABLET PO (20:32)
[2022-08-05] MEDS: Atorvastatin Calcium 40 MG TABLET PO (20:34)
[2022-08-05] MEDS: Melatonin 3 MG TABLET 9 MG PO (20:34)
[2022-08-05 21:00] VITALS: BP 123/75; PULSE 88; RESP 25; TEMP 36.8; O2SAT 99
[2022-08-05] MEDS: traMADoL HCL 50 MG TABLET 100 MG PO (21:07)
--- NOTE | 2022-08-05 21:20 | PC.NURSE ---
late entry- this rn medicated pt according to aug. pt continues to call out. when asked what he needs pt states nothing . pt reports pain 9/10 in back this rn medicated pt with prn tramadol.
--- NOTE | 2022-08-05 22:48 | PC.NURSE ---
pt able to sleep at this time. pt sleeping on back with HOB elevated at this time
[2022-08-06] VITALS (8 sets, daily range): BP systolic 104–132; BP diastolic 52–78; PULSE 68–75; RESP 10–19; TEMP 36.4–36.9; O2SAT 93–98
--- NOTE | 2022-08-06 01:20 | PC.NURSE ---
pt rang marly. pt reports needing boost. this rn and recharger boosted pt up in bed. HOB elevated. pt states no new needs at this time
[2022-08-06] MEDS: 0.9 % Sodium Chloride Flush 3 ML SYRINGE IVFLUSH ×3 (01:32→15:45)
--- NOTE | 2022-08-06 05:12 | PC.NURSE ---
pt calm and cooperative. ringing callbell appropriately. education and training coordinator assisted pt in adjusting bed linens
[2022-08-06 06:57] LABS: Hematocrit 36.1 % (42.0-52.0); Hemoglobin 11.5 g/dl (14.0-18.0); Mean Corpuscular HGB Conc 31.9 g/dl (31.0-36.0); Mean Corpuscular Hemoglobin 29.7 pg (27.0-33.0); Mean Corpuscular Volume 93.3 fL (80.0-98.0); Mean Platelet Volume 9.9 fL (9.4-12.4); Platelet Count 235 X10*3/uL (160-400); Red Blood Count 3.87 X10*6/uL (4.60-5.80); Red Cell Distribution Width 14.1 % (11.0-16.0); White Blood Count 8.5 X10*3/uL (4.8-10.8)
[2022-08-06 07:13] LABS: Alanine Aminotransferase 12 U/L (0-40); Alkaline Phosphatase 89 U/L (39-117); Anion Gap 12 (12-20); Aspartate Amino Transferase 9 U/L (5-37); Bilirubin Direct 0.2 mg/dL (0.0-0.5); Bilirubin Total 0.7 mg/dL (0.0-1.0); Blood Urea Nitrogen 11 mg/dL (9-16); Calcium 8.7 mg/dL (8.4-10.2); Carbon Dioxide 26 mmol/L (22-29); Chloride 108 mmol/L (96-108); Estimated Glomerular Filt Rate > 60; Glucose Fasting 109 mg/dL (60-99); Magnesium 2.1 mg/dL (1.6-2.6); Sodium 142 mmol/L (135-145); Total Protein 5.9 g/dL (6.5-8.0)
[2022-08-06 07:22] LABS: Glucose, Whole Blood 98 mg/dL (60-115)
--- NOTE | 2022-08-06 09:56 | MHC.EDTECH ---
Patient had a bowel movement in bed. Pt linen and bedding changed. Urinary bag emptied and patient repositioned, lights dimmed.
--- NOTE | 2022-08-06 10:34 | HO.PM.IMPN ---
Subjective Subjective Date of Service: 08/06/22 Interval History: hypoxia Physical Exam Vital Signs: Vital Signs: Last Vital Signs Temp 98.2 F 08/06/22 06:16 Pulse 72 08/06/22 07:30 Resp 12 08/06/22 07:30 BP 104/63 08/06/22 07:30 Pulse Ox 96 08/06/22 07:30 O2 Del Method 08/06/22 07:30 O2 Flow Rate 3 08/06/22 07:30 Oxygen Flow Rate 3 08/05/22 11:14 BMI result Body Mass Index 41.0 General: AO X 2, calmer Resp: CTA bilateral, no accessory muscles used CVS: S1,S2,irregular GI: soft, non tender, non distended Neuro: left hemiparesis Objective Data Active Medications Atorvastatin Calcium (Atorvastatin Calcium 40 Mg Tablet) 40 mg PO BEDTIME [facility] Last Admin: 08/05/22 20:34 Dose: 40 mg Documented By: BIANCA Baclofen (Baclofen 20 Mg Tablet) 20 mg PO BID [facility] Last Admin: 08/05/22 20:26 Dose: 20 mg Documented By: BIANCA Buspirone HCl (Buspirone Hcl 5 Mg Tablet) 15 mg PO TID [facility] Last Admin: 08/05/22 20:28 Dose: 15 mg Documented By: BIANCA Finasteride (Finasteride 5 Mg Tablet) 5 mg PO DAILY [facility] Gabapentin (Gabapentin 400 Mg Capsule) 400 mg PO TID [facility] Last Admin: 08/05/22 20:27 Dose: 400 mg Documented By: BIANCA Haloperidol (Haloperidol 5 Mg Tablet) 5 mg PO TID [facility] Last Admin: 08/05/22 20:28 Dose: 5 mg Documented By: BIANCA Ceftriaxone Sodium 1 gm/ (Sodium Chloride) 50 mls @ 100 mls/hr IV Q24H [facility] Lamotrigine (Lamotrigine 25 Mg Tablet) 25 mg PO BEDTIME [facility] Last Admin: 08/05/22 20:32 Dose: 25 mg Documented By: BIANCA Lamotrigine (Lamotrigine 100 Mg Tablet) 100 mg PO BEDTIME [facility] Last Admin: 08/05/22 20:30 Dose: 100 mg Documented By: BIANCA Loratadine (Loratadine 10 Mg Tablet) 10 mg PO DAILY [facility] Lorazepam (Lorazepam 1 Mg Tablet) 1 mg PO BEDTIME [facility] Last Admin: 08/05/22 20:29 Dose: 1 mg Documented By: BIANCA Lorazepam (Lorazepam 0.5 Mg Tablet) 0.5 mg PO BID PRN PRN Reason: anxiety Melatonin (Melatonin 3 Mg Tablet) 9 mg PO BEDTIME [facility] Last Admin: 08/05/22 20:34 Dose: 9 mg Documented By: BIANCA Metoprolol Tartrate (Metoprolol Tartrate 50 Mg Tablet) 50 mg PO BID [facility]; Protocol Last Admin: 08/05/22 20:32 Dose: 50 mg Documented By: BIANCA Midodrine (Midodrine Hcl 5 Mg Tablet) 5 mg PO TIDAC [facility] Last Admin: 08/06/22 07:34 Dose: Not Given Documented By: SONI Non-Admin Reason: No Insulin Coverage Mirtazapine (Mirtazapine 15 Mg Tablet) 15 mg PO BEDTIME [facility] Last Admin: 08/05/22 20:31 Dose: 15 mg Documented By: BIANCA Olanzapine (Olanzapine 10 Mg Tablet) 10 mg PO Q8H PRN PRN Reason: agitation Last Admin: 08/05/22 18:42 Dose: 10 mg Documented By: MILO Omeprazole (Omeprazole 20 Mg Capsule.Dr) 20 mg PO DAILY@1630 [facility] Pharmacy Consult (Consult Rx Perform Med Rec) 1 each MISCELLANE ONCE PRN PRN Reason: Consult order Prednisone (Prednisone 20 Mg Tablet) 40 mg PO DAILY [facility] Rivaroxaban (Rivaroxaban 20 Mg Tablet) 20 mg PO BEDTIME [facility] Last Admin: 08/05/22 20:29 Dose: 20 mg Documented By: BIANCA Sertraline HCl (Sertraline Hcl 100 Mg Tablet) 100 mg PO DAILY [facility] Sodium Chloride (0.9 % Sodium Chloride Flush 3 Ml Syringe) 3 ml IVFLUSH QSHIFT [facility] Last Admin: 08/06/22 01:32 Dose: 3 ml Documented By: BIANCA Tramadol HCl (Tramadol Hcl 50 Mg Tablet) 100 mg PO Q6H PRN PRN Reason: Back Pain Last Admin: 08/05/22 21:07 Dose: 100 mg Documented By: BIANCA Labs 08/06/22 06:41 08/06/22 06:41 Labs: Laboratory Results - last 24 hr 03/01/23 03/01/23 03/01/23 11:48 11:48 11:49 MCV MCH MCHC RDW Plt Count MPV Immature Gran % (Auto) Neut % (Auto) Lymph % (Auto) [place] % (Auto) Eos % (Auto) Baso % (Auto) Lymph # (Auto) [place] # (Auto) Eos # (Auto) Baso # (Auto) Abs Immat Gran (auto) Absolute Neuts (auto) Absolute Nucleated RBC Nucleated RBC % (auto) Anion Gap Estim Creat Clear Calc Estimated GFR POC Glucose Random Glucose Fasting Glucose Lactic Acid Calcium Magnesium Total Bilirubin Direct Bilirubin AST ALT Alkaline Phosphatase Troponin I High Sens < 3.5 D B-Natriuretic Peptide Total Protein Albumin Urine Color Urine Appearance Urine pH Ur Specific [place] Urine Protein Urine Glucose (UA) Urine Ketones Urine Blood Urine Nitrite Ur Leukocyte Esterase Urine RBC Urine WBC Ur Squamous Epith Cells Urine Bacteria Hyaline Casts Urine Opiates Screen Urine Fentanyl Screen Ur Barbiturates Screen Ur Phencyclidine Scrn Ur Amphetamines Screen U Benzodiazepines Scrn Urine Cocaine Screen U Marijuana (THC) Screen Ethyl Alcohol Respiratory Panel Gary Adenovirus (Rapid PCR) B.pert (TEM-PCR) B.parapertussis DNA PCR C. pneumoniae DNA (PCR) Coronavirus OC43 (PCR) Coronavirus HKU1 (PCR) Coronavirus 229E (PCR) COVID-19 (ILIANA) Negative COVID-19 Clin Com See Note Coronavirus NL63 (PCR) Human Metapneumovir PCR Influenza Type A (RAMONITA) Negative Influenza A (RT-PCR) Influenza Type B (RAMONITA) Negative Influenza B (RT-PCR) Influenza A & B Note See Note M. pneumoniae (PCR) Parainfluenza 1 (PCR) Parainfluenza 2 (PCR) Parainfluenza 3 (PCR) Parainfluenza 4 (PCR) RSV (PCR) Entero/Rhino (PCR) SARS-CoV-2 RNA (RT-PCR) 08/05/22 08/05/22 08/05/22 11:49 11:50 11:50 MCV 93.5 MCH 29.2 MCHC 31.3 RDW 14.4 Plt Count 266 MPV 9.9 Immature Gran % (Auto) 0.9 H Neut % (Auto) 53.0 Lymph % (Auto) 38.0 [place] % (Auto) 5.7 Eos % (Auto) 1.8 Baso % (Auto) 0.6 Lymph # (Auto) 3.7 [place] # (Auto) 0.6 Eos # (Auto) 0.2 Baso # (Auto) 0.1 Abs Immat Gran (auto) 0.09 H Absolute Neuts (auto) 5.2 Absolute Nucleated RBC 0.000 Nucleated RBC % (auto) 0.0 Anion Gap 11 L Estim Creat Clear Calc 120.7 Estimated GFR > 60 POC Glucose Random Glucose 91 Fasting Glucose Lactic Acid Calcium 8.8 Magnesium 2.2 Total Bilirubin 0.5 Direct Bilirubin AST 14 ALT 16 Alkaline Phosphatase 115 Troponin I High Sens B-Natriuretic Peptide Total Protein 6.2 L Albumin 3.9 Urine Color Urine Appearance Urine pH Ur Specific [place] Urine Protein Urine Glucose (UA) Urine Ketones Urine Blood Urine Nitrite Ur Leukocyte Esterase Urine RBC Urine WBC Ur Squamous Epith Cells Urine Bacteria Hyaline Casts Urine Opiates Screen Urine Fentanyl Screen Ur Barbiturates Screen Ur Phencyclidine Scrn Ur Amphetamines Screen U Benzodiazepines Scrn Urine Cocaine Screen U Marijuana (THC) Screen Ethyl Alcohol < 10 Respiratory Panel Gary Adenovirus (Rapid PCR) B.pert (TEM-PCR) B.parapertussis DNA PCR C. pneumoniae DNA (PCR) Coronavirus OC43 (PCR) Coronavirus HKU1 (PCR) Coronavirus 229E (PCR) COVID-19 (ILIANA) COVID-19 Clin Com Coronavirus NL63 (PCR) Human Metapneumovir PCR Influenza Type A (RAMONITA) Influenza A (RT-PCR) Influenza Type B (RAMONITA) Influenza B (RT-PCR) Influenza A & B Note M. pneumoniae (PCR) Parainfluenza 1 (PCR) Parainfluenza 2 (PCR) Parainfluenza 3 (PCR) Parainfluenza 4 (PCR) RSV (PCR) Entero/Rhino (PCR) SARS-CoV-2 RNA (RT-PCR) 08/05/22 08/05/22 08/05/22 11:52 11:54 11:54 MCV MCH MCHC RDW Plt Count MPV Immature Gran % (Auto) Neut % (Auto) Lymph % (Auto) [place] % (Auto) Eos % (Auto) Baso % (Auto) Lymph # (Auto) [place] # (Auto) Eos # (Auto) Baso # (Auto) Abs Immat Gran (auto) Absolute Neuts (auto) Absolute Nucleated RBC Nucleated RBC % (auto) Anion Gap Estim Creat Clear Calc Estimated GFR POC Glucose Random Glucose Fasting Glucose Lactic Acid 1.2 Calcium Magnesium Total Bilirubin Direct Bilirubin AST ALT Alkaline Phosphatase Troponin I High Sens B-Natriuretic Peptide Total Protein Albumin Urine Color Yellow Urine Appearance Cloudy Urine pH 7.5 Ur Specific [place] 1.015 Urine Protein Negative Urine Glucose (UA) Negative Urine Ketones Negative Urine Blood Negative Urine Nitrite Negative Ur Leukocyte Esterase Trace H Urine RBC 0-2 Urine WBC 11-20 H Ur Squamous Epith Cells 6-10 Urine Bacteria 4+ Hyaline Casts 0-2 Urine Opiates Screen Not Detected Urine Fentanyl Screen POSITIVE H Ur Barbiturates Screen Not Detected Ur Phencyclidine Scrn Not Detected Ur Amphetamines Screen Not Detected U Benzodiazepines Scrn Not Detected Urine Cocaine Screen Not Detected U Marijuana (THC) Screen Not Detected Ethyl Alcohol Respiratory Panel Gary Adenovirus (Rapid PCR) B.pert (TEM-PCR) B.parapertussis DNA PCR C. pneumoniae DNA (PCR) Coronavirus OC43 (PCR) Coronavirus HKU1 (PCR) Coronavirus 229E (PCR) COVID-19 (ILIANA) COVID-19 Clin Com Coronavirus NL63 (PCR) Human Metapneumovir PCR Influenza Type A (RAMONITA) Influenza A (RT-PCR) Influenza Type B (RAMONITA) Influenza B (RT-PCR) Influenza A & B Note M. pneumoniae (PCR) Parainfluenza 1 (PCR) Parainfluenza 2 (PCR) Parainfluenza 3 (PCR) Parainfluenza 4 (PCR) RSV (PCR) Entero/Rhino (PCR) SARS-CoV-2 RNA (RT-PCR) 08/05/22 08/05/22 08/05/22 11:54 11:55 12:23 MCV MCH MCHC RDW Plt Count MPV Immature Gran % (Auto) Neut % (Auto) Lymph % (Auto) [place] % (Auto) Eos % (Auto) Baso % (Auto) Lymph # (Auto) [place] # (Auto) Eos # (Auto) Baso # (Auto) Abs Immat Gran (auto) Absolute Neuts (auto) Absolute Nucleated RBC Nucleated RBC % (auto) Anion Gap Estim Creat Clear Calc Estimated GFR POC Glucose 89 Random Glucose Fasting Glucose Lactic Acid Calcium Magnesium Total Bilirubin Direct Bilirubin AST ALT Alkaline Phosphatase Troponin I High Sens B-Natriuretic Peptide 53 Total Protein Albumin Urine Color Urine Appearance Urine pH Ur Specific [place] Urine Protein Urine Glucose (UA) Urine Ketones Urine Blood Urine Nitrite Ur Leukocyte Esterase Urine RBC Urine WBC Ur Squamous Epith Cells Urine Bacteria Hyaline Casts Urine Opiates Screen Urine Fentanyl Screen Ur Barbiturates Screen Ur Phencyclidine Scrn Ur Amphetamines Screen U Benzodiazepines Scrn Urine Cocaine Screen U Marijuana (THC) Screen Ethyl Alcohol Respiratory Panel Gary See Note Adenovirus (Rapid PCR) Not Detected B.pert (TEM-PCR) Not Detected B.parapertussis DNA PCR Not Detected C. pneumoniae DNA (PCR) Not Detected Coronavirus OC43 (PCR) Not Detected Coronavirus HKU1 (PCR) Not Detected Coronavirus 229E (PCR) Not Detected COVID-19 (ILIANA) COVID-19 Clin Com Coronavirus NL63 (PCR) Not Detected Human Metapneumovir PCR Not Detected Influenza Type A (RAMONITA) Influenza A (RT-PCR) Not Detected Influenza Type B (RAMONITA) Influenza B (RT-PCR) Not Detected Influenza A & B Note M. pneumoniae (PCR) Not Detected Parainfluenza 1 (PCR) Not Detected Parainfluenza 2 (PCR) Not Detected Parainfluenza 3 (PCR) Not Detected Parainfluenza 4 (PCR) Not Detected RSV (PCR) Not Detected Entero/Rhino (PCR) Not Detected SARS-CoV-2 RNA (RT-PCR) Not Detected 08/06/22 08/06/22 08/06/22 06:41 06:41 07:19 MCV 93.3 MCH 29.7 MCHC 31.9 RDW 14.1 Plt Count 235 MPV 9.9 Immature Gran % (Auto) Neut % (Auto) Lymph % (Auto) [place] % (Auto) Eos % (Auto) Baso % (Auto) Lymph # (Auto) [place] # (Auto) Eos # (Auto) Baso # (Auto) Abs Immat Gran (auto) Absolute Neuts (auto) Absolute Nucleated RBC 0.000 Nucleated RBC % (auto) 0.0 Anion Gap 12 Estim Creat Clear Calc 161.0 Estimated GFR > 60 POC Glucose 98 Random Glucose Fasting Glucose 109 H Lactic Acid Calcium 8.7 Magnesium 2.1 Total Bilirubin 0.7 Direct Bilirubin 0.2 AST 9 ALT 12 Alkaline Phosphatase 89 Troponin I High Sens B-Natriuretic Peptide Total Protein 5.9 L Albumin 4.0 Urine Color Urine Appearance Urine pH Ur Specific [place] Urine Protein Urine Glucose (UA) Urine Ketones Urine Blood Urine Nitrite Ur Leukocyte Esterase Urine RBC Urine WBC Ur Squamous Epith Cells Urine Bacteria Hyaline Casts Urine Opiates Screen Urine Fentanyl Screen Ur Barbiturates Screen Ur Phencyclidine Scrn Ur Amphetamines Screen U Benzodiazepines Scrn Urine Cocaine Screen U Marijuana (THC) Screen Ethyl Alcohol Respiratory Panel Gary Adenovirus (Rapid PCR) B.pert (TEM-PCR) B.parapertussis DNA PCR C. pneumoniae DNA (PCR) Coronavirus OC43 (PCR) Coronavirus HKU1 (PCR) Coronavirus 229E (PCR) COVID-19 (ILIANA) COVID-19 Clin Com Coronavirus NL63 (PCR) Human Metapneumovir PCR Influenza Type A (RAMONITA) Influenza A (RT-PCR) Influenza Type B (RAMONITA) Influenza B (RT-PCR) Influenza A & B Note M. pneumoniae (PCR) Parainfluenza 1 (PCR) Parainfluenza 2 (PCR) Parainfluenza 3 (PCR) Parainfluenza 4 (PCR) RSV (PCR) Entero/Rhino (PCR) SARS-CoV-2 RNA (RT-PCR) Microbiology Microbiology Results: Microbiology 08/05/22 Unknown Urine Culture - Final Urine clean catch - Urine gillis top Assessment and Plan (1) Hypoxia: Status: Acute Plan 67M PMH CVA with left hemiparesis, permanent afib, chornic diastolic chf, chronic hypoxic resp failure due to copd, mood disorder, TBI, anxiety, presented from SNF for several days cough, hypoxia to 70s acute on chronic hypoxic respiratory failure ?sepsis due to aspiration pneumonia vs pnuemonitis continue rocephin, supervisor orchard, wean o2 copd with acute decompensation steroids, nebs permanent afib xarelto metoprolol mood disorder due to tbi continue mood stablizers history of cva left hemiparesis xarelto chronic diastolic chf holding lasix for hypovolemia dvt prophylaxis - xarelto dnr/dni reason for continued hospitalization: monitoring bp, weaning o2, awaiting supervisor orchard Time Spent With Patient Time: Total time managing care of this patient today ____ minutes. Quality Stroke Does the patient have a stroke diagnosis?: No VTE Prior VTE?: No VTE Risk Level:: Medical - moderate - high VTE Device Contraindication: Treatment Not Indicated VTE Drug Contraindication: N/A - Med Ordered
[2022-08-06] MEDS: Midodrine HCl 5 MG TABLET PO ×2 (10:44→15:45)
[2022-08-06] MEDS: LORazepam 0.5 MG TABLET PO ×2 (10:44→13:31)
[2022-08-06] MEDS: predniSONE 20 MG TABLET 40 MG PO (10:44)
[2022-08-06] MEDS: busPIRone HCl 5 MG TABLET 15 MG PO ×3 (10:45→19:31)
[2022-08-06] MEDS: Sertraline HCL 100 MG TABLET PO (10:45)
[2022-08-06] MEDS: Gabapentin 400 MG CAPSULE PO ×3 (10:45→19:30)
[2022-08-06] MEDS: HaloperidoL 5 MG TABLET PO ×3 (10:45→19:30)
[2022-08-06] MEDS: Baclofen 20 MG TABLET PO ×2 (10:45→19:31)
[2022-08-06] MEDS: traMADoL HCL 50 MG TABLET 100 MG PO (10:45)
[2022-08-06] MEDS: Loratadine 10 MG TABLET PO (10:46)
[2022-08-06] MEDS: cefTRIAXone sodium 1 GM in 0.9 % Sodium Chloride 50 ML IV (10:46)
--- NOTE | 2022-08-06 11:07 | MHC.EDTECH ---
Patient had bowel movement. Pt cleaned up and clean pads placed on stretcher. Pt repositioned and lights dimmed per request.
[2022-08-06] MEDS: Finasteride 5 MG TABLET PO (11:16)
[2022-08-06] MEDS: Metoprolol Tartrate 50 MG TABLET PO ×2 (11:31→19:31)
[2022-08-06] MEDS: OLANZapine 10 MG TABLET PO (12:32)
--- NOTE | 2022-08-06 13:12 | MHC.CM.PN ---
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 IN THE HOME HCP IS INVOKED HCP: LIDYA (DTR) [phone] PCP: LIDYA ADEN UNSURE ABOUT VAX STATUS Addendum entered by Brenda Thornton 08/06/22 15:25: AMAURY SPOKE TO IVONNE WHO REPORTS SHE WILL EMAIL THE MED ORDERS TO [facility] SHE ALSO CONFIRMED THEY WILL NOT NEED A MEETING PRIOR TO DC THIS ADMISSION WAS PURELY MEDICAL, THERE WERE NO BEHAVIORS SHE REPORTS IF THERE IS A WEEKEND DC, THEY WOULD JUST NEED TO SET THINGS UP ON WEDNESDAY CM WILL UPDATE HER TOMORROW REGARDING EXPECTED DC DATE Original Note: AMAURY CALLED [facility] [employer] TO REQUEST ANY MED ORDER PAPERWORK AND DETERMINE IF THEY PLAN TO REQUEST A PROVIDER MEETING PRIOR TO DC A VM MESSAGE WAS LEFT INFORMING HER THESE THINGS SHOULD BE PLANNED NOW TO AVOID DELAYING PTS DC ONCE HE IS MEDICALLY CLEARED AWAITING RETURN CALL
[2022-08-06] MEDS: polyethylene glycoL 3350 17 GM POWD.PACK PO (13:31)
[2022-08-06 15:19] LABS: Amphetamine Screen Urine Not Detected (Not Detect); Barbiturates, Urine Not Detected (Not Detect); Benzodiazepines Screen Urine Not Detected (Not Detect); Cannabinoid Screen Urine Not Detected (Not Detect); Cocaine Screen Urine Not Detected (Not Detect); Fentanyl, urine Not Detected (Not Detect); Opiate Screen Urine Not Detected (Not Detect); Phencyclidine Screen Urine Not Detected (Not Detect)
[2022-08-06] MEDS: Omeprazole 20 MG CAPSULE.DR PO (15:45)
[2022-08-06] MEDS: LORazepam 1 MG TABLET PO (19:30)
[2022-08-06] MEDS: Rivaroxaban 20 MG TABLET PO (19:30)
[2022-08-06] MEDS: Melatonin 3 MG TABLET 9 MG PO (19:30)
[2022-08-06] MEDS: lamoTRIgine 25 MG TABLET PO (19:30)
[2022-08-06] MEDS: Mirtazapine 15 MG TABLET PO (19:30)
[2022-08-06] MEDS: Atorvastatin Calcium 40 MG TABLET PO (19:31)
[2022-08-06] MEDS: lamoTRIgine 100 MG TABLET PO (19:31)
[2022-08-07] MEDS: 0.9 % Sodium Chloride Flush 3 ML SYRINGE IVFLUSH ×2 (00:13→09:31)
[2022-08-07] MEDS: traMADoL HCL 50 MG TABLET 100 MG PO (02:29)
[2022-08-07 03:02] VITALS: PULSE 72; RESP 17; TEMP 36.3; O2SAT 94
[2022-08-07] MEDS: LORazepam 0.5 MG TABLET PO (06:32)
[2022-08-07 07:11] LABS: Hematocrit 40.9 % (42.0-52.0); Hemoglobin 12.6 g/dl (14.0-18.0); Mean Corpuscular HGB Conc 30.8 g/dl (31.0-36.0); Mean Corpuscular Hemoglobin 29.5 pg (27.0-33.0); Mean Corpuscular Volume 95.8 fL (80.0-98.0); Mean Platelet Volume 10.2 fL (9.4-12.4); Platelet Count 238 X10*3/uL (160-400); Red Blood Count 4.27 X10*6/uL (4.60-5.80); Red Cell Distribution Width 14.2 % (11.0-16.0); White Blood Count 8.8 X10*3/uL (4.8-10.8)
[2022-08-07 07:59] LABS: Anion Gap 15 (12-20); Blood Urea Nitrogen 11 mg/dL (9-16); Calcium 9.1 mg/dL (8.4-10.2); Carbon Dioxide 25 mmol/L (22-29); Chloride 108 mmol/L (96-108); Estimated Glomerular Filt Rate > 60; Glucose Fasting 89 mg/dL (60-99); Potassium 3.7 mmol/L (3.3-5.1); Sodium 144 mmol/L (135-145)
[2022-08-07 08:00] VITALS: BP 129/65; PULSE 96; RESP 18; TEMP 36.3; O2SAT 96
--- NOTE | 2022-08-07 09:23 | PM.DS ---
DS: Providers Provider Date of Service: 08/07/22 Date of admission: 08/05/22 16:14 Primary care physician: Cortney Joseph DO DS: Diagnosis Discharge Diagnosis (1) Hypoxia: Status: Acute DS: Summary Hospital Course Hospital Course: from initial hpi: Chief Complaint: hypoxia, hypotension 67M PMH CVA with left hemiparesis, permanent afib, chornic diastolic chf, chronic hypoxic resp failure due to copd, mood disorder, TBI, anxiety, presented from SNF for several days cough, hypoxia to 70s. in ED found to be severely hypotensive to sbp in 60s, repsonded to iv fluids and albumin. ct chest with bilateral opacities. patient poor historian, says he feels better and wants to be discharged. hospital course: Patient was admitted for acute on chronic hypoxic respiratory failure and sepsis due to aspiration pneumonia versus chemical pneumonitis. He was treated with ceftriaxone, he was able to be weaned down to his baseline 2 L. he will be discharged on 5 more days of cefuroxime. For COPD with acute decompensation was treated with steroids and bronchodilators. Shortness of breath is back to baseline. For his permanent atrial fibrillation he was continued on metoprolol and Xarelto. His hypotension resolved with hydration, clonidine has been held. For mood disorder due to TBI he was continued on mood stabilizers. For history of CVA with left hemiparesis he was continued on Xarelto. For chronic diastolic CHF his diuretics have been held for hypokalemia but can be restarted for maintenance on discharge. Time Spent with Patient Time attestation: Total time managing care of this patient today ____ minutes. Discharge coordination time: Greater than 30 minutes Quality: Safe Use of Opioids Does Pt have an Active Cancer Diagnosis on the Problem List?: No Quality: Stroke Does the patient have a stroke diagnosis?: No Physical Exam Vital Signs: Vital Signs: Last Vital Signs Temp 97.3 F 08/07/22 08:00 Pulse 96 08/07/22 08:00 Resp 18 08/07/22 08:00 BP 129/65 08/07/22 08:00 Pulse Ox 96 08/07/22 08:00 O2 Del Method 08/07/22 08:00 O2 Flow Rate 2 08/07/22 08:00 Oxygen Flow Rate 3 08/05/22 11:14 BMI result Body Mass Index 41.0 General: AO X 2, calmer Resp: CTA bilateral, no accessory muscles used CVS: S1,S2,irregular GI: soft, non tender, non distended Neuro: left hemiparesis DS: Data Data Completed and Pending Labs on day of discharge: Laboratory Results - last 24 hr 08/06/22 08/07/22 08/07/22 14:45 05:57 05:57 WBC 8.8 RBC 4.27 L Hgb 12.6 L Hct 40.9 L MCV 95.8 MCH 29.5 MCHC 30.8 L RDW 14.2 Plt Count 238 MPV 10.2 Absolute Nucleated RBC 0.000 Nucleated RBC % (auto) 0.0 Sodium 144 Potassium 3.7 Chloride 108 Carbon Dioxide 25 Anion Gap 15 BUN 11 Creatinine 0.69 Estim Creat Clear Calc 154.0 Estimated GFR > 60 Fasting Glucose 89 Calcium 9.1 Urine Opiates Screen Not Detected Urine Fentanyl Screen Not Detected Ur Barbiturates Screen Not Detected Ur Phencyclidine Scrn Not Detected Ur Amphetamines Screen Not Detected U Benzodiazepines Scrn Not Detected Urine Cocaine Screen Not Detected U Marijuana (THC) Screen Not Detected Preliminary micro results at discharge 08/05/22 11:51 Blood Culture - Preliminary Blood - Venous No growth after 24 hours. 08/05/22 11:50 Blood Culture - Preliminary Blood - Venous No growth after 24 hours. Discharge Plan Discharge Anticipated Discharge Date/Time: 08/07/22 09:19 Patient Disposition: er [facility] Discharge Diagnosis: hypoxia, hypotension Referrals: Cortney Joseph DO [Primary Care Provider] - 1 Week Discharge Medications: New prednisone 20 mg Tablet 40 mg PO DAILY Qty: 10 0RF cefuroxime axetil 500 mg tablet 500 mg PO BID Qty: 10 0RF Continued lorazepam [Ativan] 1 mg tablet 1 tab PO BEDTIME melatonin 5 mg capsule 2 cap PO BEDTIME mirtazapine 15 mg Tablet 15 mg PO BEDTIME atorvastatin 40 mg Tablet 40 mg PO BEDTIME gabapentin 400 mg Capsule 400 mg TID pantoprazole 40 mg Tablet,Delayed Release (Dr/Ec) 40 mg PO DAILY@1630 metoprolol tartrate 50 mg Tablet 50 mg PO BID Rx Instructions: HOLD IF SBP < 100 OR > 140 HOLD IF HR < 60 OR > 100 cetirizine 10 mg Tablet 10 mg PO DAILY docusate sodium 100 mg Capsule 100 mg PO BID furosemide 20 mg Tablet 20 mg PO DAILY PRN (Reason: fluid overload) Rx Instructions: NEEDED FOR WEIGHT GAIN > 3 POUNDS finasteride 5 mg Tablet 5 mg PO DAILY Xarelto 20 mg Tablet 20 mg PO BEDTIME Rx Instructions: must administer with evening meal midodrine 5 mg tablet 1 tab PO TIDAC azelastine 0.05 % Drops 1 drp OPHTHALMIC (EYE) Q12H PRN (Reason: Allergy Symptoms) acetaminophen 325 mg Tablet 650 mg PO TID albuterol sulfate 2.5 mg /3 mL (0.083 %) Solution For Nebulization 2.5 mg INHALATION Q8H PRN (Reason: Shortness Of Breath) polyvinyl alcohol 1.4 % Drops 1 drp OPHTHALMIC (EYE) DAILY sertraline 100 mg Tablet 100 mg PO DAILY Rx Instructions: tdd = 150 mg pseudoephedrine-guaifenesin [Mucus D] 60-600 mg Tablet Extended Release 12 Hr 1 tab PO BID PRN (Reason: Congestion) lamotrigine [Lamictal] 25 mg Tablet 25 mg PO BEDTIME Rx Instructions: tdd = 125 mg Biofreeze (menthol) 4 % Gel 1 appl TOPICAL BID Rx Instructions: apply a thin layer mid to lower back Biofreeze (menthol) 4 % Gel 1 appl TOPICAL Q2H PRN (Reason: Pain (Scale Score 1-3)) Rx Instructions: apply to mid lower back calcium carbonate 430 mg calcium (1,000 mg) Tablet,Chewable 430 mg PO Q8H PRN (Reason: Indigestion) tramadol 100 mg Tablet 100 mg PO Q6H PRN (Reason: Back Pain) furosemide 20 mg Tablet 20 mg PO DAILY Rx Instructions: HOLD FOR SBP< 100 OR > 140 HOLD IF HR < 60 OR > 100 lamotrigine [Lamictal] 100 mg Tablet 100 mg PO BEDTIME Rx Instructions: TAKE TOGETHER WITH 25 MG TAB TDD= 125 MG buspirone 15 mg tablet 1 tab PO TID budesonide-formoterol [Symbicort] 160-4.5 mcg/actuation Hfa Aerosol Inhaler 2 puff INHALATION BID baclofen 20 mg Tablet 20 mg PO BID sennosides [senna] 8.6 mg Tablet 8.6 mg PO BID Rx Instructions: HOLD FOR LOOSE BOWEL MOVEMENT Incruse Ellipta 62.5 mcg/actuation Blister With Device 1 inh INHALATION DAILY acetaminophen 325 mg Tablet 650 mg PO DAILY PRN (Reason: HEADACHE, fEVER > 100.4, BODY ACHES ) haloperidol 5 mg Tablet 5 mg PO TID Qty: 90 0RF lorazepam [Ativan] 0.5 mg tablet 0.5 mg PO BID PRN (Reason: anxiety) Qty: 30 0RF magnesium hydroxide [Milk of Magnesia] 400 mg/5 mL Suspension 30 ml PO DAILY PRN (Reason: Constipation) miconazole nitrate 2 % Ointment 1 appl TOPICAL BEDTIME PRN (Reason: skin integrity) bisacodyl 10 mg Suppository 10 mg FL BID PRN (Reason: Constipation) olanzapine 10 mg tablet 10 mg PO Q8H PRN (Reason: agitation) Discontinued nitroglycerin 0.4 mg Tablet, Sublingual 0.4 mg SUBLINGUAL Q5M PRN (Reason: Chest Pain) Rx Instructions: do not exceed 3 doses per episode clonidine HCl 0.1 mg Tablet 0.1 mg PO TID Qty: 90 0RF Protocol: Hold for SBP< HOLD for SBP < : 90 Discharge Orders: Discharge Order (Routine); Ordered 08/07/22 Ordered By: Hermelindo Gamez Diet: Advance to usual diet Activity on Discharge: As tolerated Stand Alone Forms: Patient Portal Discharge page Care Plan Goals: recovery Health Concerns: hypoxia, hypotension Plan of Treatment: 5 more days prednisone and ceftin, hold clonidine Assessment: see above
[2022-08-07] MEDS: Gabapentin 400 MG CAPSULE PO (09:30)
[2022-08-07] MEDS: predniSONE 20 MG TABLET 40 MG PO (09:30)
[2022-08-07] MEDS: Sertraline HCL 100 MG TABLET PO (09:30)
[2022-08-07] MEDS: busPIRone HCl 5 MG TABLET 15 MG PO (09:30)
[2022-08-07] MEDS: Loratadine 10 MG TABLET PO (09:30)
[2022-08-07] MEDS: Metoprolol Tartrate 50 MG TABLET PO (09:30)
[2022-08-07] MEDS: HaloperidoL 5 MG TABLET PO (09:30)
[2022-08-07] MEDS: Baclofen 20 MG TABLET PO (09:30)
[2022-08-07] MEDS: Midodrine HCl 5 MG TABLET PO (09:31)
[2022-08-07] MEDS: Finasteride 5 MG TABLET PO (09:31)
[2022-08-07] MEDS: cefTRIAXone sodium 1 GM in 0.9 % Sodium Chloride 50 ML IV (09:31)
--- NOTE | 2022-08-07 09:51 | MHC.CM.PN ---
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 RN and Unit also aware.
[2022-08-07] MEDS: OLANZapine 10 MG TABLET PO (10:20)
[2022-08-14 11:35] LABS: Fentanyl, Ur NEGATIVE; Norfentanyl, Ur NEGATIVE
== END 2022-08-07 11:27 | disposition home health service (06) | DRG 720 ==
LOC: HO.ED 15:54 → HO.EDOVER 16:22 → HO.S3 08-06 11:15
PROVIDERS: Nurse Practitioner Family; Admitting Provider Internal Medicine; Emergency Provider Emergency Medicine; PCP Family Medicine; Visit Provider Internal Medicine
DX: A41.9 Sepsis, unspecified organism (principal); J96.21 Acute and chronic respiratory failure with hypoxia; J69.0 Pneumonitis due to inhalation of food and vomit; J44.1 Chronic obstructive pulmonary disease with (acute) exacerbation; Z66 Do not resuscitate; I69.354 Hemiplegia and hemiparesis following cerebral infarction affecting left non-dominant side; I50.32 Chronic diastolic (congestive) heart failure; I48.21 Permanent atrial fibrillation; F39 Unspecified mood [affective] disorder; S06.9XAS Unspecified intracranial injury with loss of consciousness status unknown, sequela; Z20.822 Contact with and (suspected) exposure to COVID-19; Z79.01 Long term (current) use of anticoagulants; Z79.899 Other long term (current) drug therapy
CPT/HCPCS: 36415; 71045; 71275; 80048; 80053; 80076; 80307; 80354; 81001; 81003; 82077; 82947; 83605; 83735; 83880; 84484; 85025; 85027; 87040; 87086; 87502; 87633; 87635; 93005; 94640; 99285; J0696; J2543; J2930; J3370; P9047; Q9967

== ENCOUNTER 2022-08-25 23:19 | Emergency (ER) | payer MEDICAID, SELFPAY ==
[2022-08-25 23:36] VITALS: BP 98/60; PULSE 56; O2SAT 93; BMI 31.6
[2022-08-25 23:55] VITALS: BP 103/62; PULSE 62; RESP 18; TEMP 36.6; O2SAT 94
[2022-08-26 01:02] LABS: Appearance Urine Cloudy; Color Urine Yellow; Glucose Urine UA Negative (Negative); Leukocyte Esterase Urine Negative (Negative); Nitrite Urine Negative (Negative); PH 7.5 (5.0-9.0); Specific Gravity - Urine <= 1.005 (1.005-1.025); UMIC TRIGGER UACC YES; Urine Blood Trace (Negative); Urine Ketones Negative (Negative); Urine Protein Negative (Neg-Trace)
[2022-08-26 01:07] LABS: Bacteria Urine 4+ (None Seen); RBC Urine 0-2 /HPF (0-2); Squamous Epithelial Cell Urine 0-2 /HPF (0-2); WBC Urine 0-5 /HPF (0-5)
--- NOTE | 2022-08-26 01:28 | ED.MALEGU ---
HPI - Male Genitourinary General Chief complaint: Urogenital-Male Stated complaint: ?uti,acting out all day,hx uti, from [facility] Time Seen by Provider: 08/26/22 01:28 Source: RN notes reviewed Mode of arrival: EMS Limitations: other (Stroke, mood disorder, TBI) History of Present Illness HPI Narrative: 57-year-old male who was sent to the emergency department by his nursing facility for acting out and yelling all day long at his facility. The patient is not able to give me any information information is obtained from the ER triage note. I did look at the note sent in from the nursing facility however there is no information as to why he was sent here at this time. According to ED nursing notes, the facility was concerned that the patient may have urinary tract infection or infectious process as the cause of him acting out. I did review old the ED and hospitalist notes on this patient. The patient does have history of stroke, mood disorder and TBI with documented behaviors of him yelling at the staff and acting out while he has been in the emergency department and in the hospital. His last admission was on 08/05/2022 until 08/07/2022 where he had hypoxia secondary to aspiration pneumonia or pneumonitis. Related Data Home Medications Medication Instructions Recorded Confirmed atorvastatin 40 mg tablet 40 mg PO BEDTIME 02/28/22 08/05/22 gabapentin 400 mg capsule 400 mg TID 02/28/22 08/05/22 lorazepam 1 mg tablet (Ativan) 1 tab PO BEDTIME 02/28/22 08/05/22 melatonin 5 mg capsule 2 cap PO BEDTIME 02/28/22 08/05/22 metoprolol tartrate 50 mg tablet 50 mg PO BID 02/28/22 08/05/22 mirtazapine 15 mg tablet 15 mg PO BEDTIME 02/28/22 08/05/22 pantoprazole 40 mg tablet,delayed 40 mg PO DAILY@1630 02/28/22 08/05/22 release cetirizine 10 mg tablet 10 mg PO DAILY 03/01/22 08/05/22 docusate sodium 100 mg capsule 100 mg PO BID 03/01/22 08/05/22 finasteride 5 mg tablet 5 mg PO DAILY 03/01/22 08/05/22 furosemide 20 mg tablet 20 mg PO DAILY PRN fluid overload 03/01/22 08/05/22 midodrine 5 mg tablet 1 tab PO TIDAC 03/01/22 08/05/22 rivaroxaban 20 mg tablet (Xarelto) 20 mg PO BEDTIME 03/01/22 08/05/22 acetaminophen 325 mg tablet 650 mg PO TID 03/28/22 08/05/22 albuterol sulfate 2.5 mg/3 mL 2.5 mg inhalation Q8H PRN 03/28/22 08/05/22 (0.083 %) solution for nebulization Shortness Of Breath azelastine 0.05 % eye drops 1 drp ophthalmic (eye) Q12H PRN 03/28/22 08/05/22 Allergy Symptoms calcium carbonate 430 mg calcium 430 mg PO Q8H PRN Indigestion 03/28/22 08/05/22 (1,000 mg) chewable tablet furosemide 20 mg tablet 20 mg PO DAILY 03/28/22 08/05/22 lamotrigine 100 mg tablet 100 mg PO BEDTIME 03/28/22 08/05/22 (Lamictal) lamotrigine 25 mg tablet (Lamictal) 25 mg PO BEDTIME 03/28/22 08/05/22 menthol 4 % topical gel (Biofreeze 1 appl topical BID 03/28/22 08/05/22 (menthol)) menthol 4 % topical gel (Biofreeze 1 appl topical Q2H PRN Pain (Scale 03/28/22 08/05/22 (menthol)) Score 1-3) polyvinyl alcohol 1.4 % eye drops 1 drp ophthalmic (eye) DAILY 03/28/22 08/05/22 pseudoephedrine-guaifenesin ER 60 1 tab PO BID PRN Congestion 03/28/22 08/05/22 mg-600 mg tablet,extend release 12hr (Mucus D) sertraline 100 mg tablet 100 mg PO DAILY 03/28/22 08/05/22 tramadol 100 mg tablet 100 mg PO Q6H PRN Back Pain 03/28/22 08/05/22 acetaminophen 325 mg tablet 650 mg PO DAILY PRN HEADACHE, 07/17/22 08/05/22 fEVER > 100.4, BODY ACHES baclofen 20 mg tablet 20 mg PO BID 07/17/22 08/05/22 budesonide-formoterol HFA 160 2 puff inhalation BID 07/17/22 08/05/22 mcg-4.5 mcg/actuation aerosol inhaler (Symbicort) buspirone 15 mg tablet 1 tab PO TID 07/17/22 08/05/22 sennosides 8.6 mg tablet (senna) 8.6 mg PO BID 07/17/22 08/05/22 umeclidinium 62.5 mcg/actuation 1 inh inhalation DAILY 07/17/22 08/05/22 blister powder for inhalation (Incruse Ellipta) bisacodyl 10 mg rectal suppository 10 mg AK BID PRN Constipation 08/05/22 08/05/22 magnesium hydroxide 400 mg/5 mL 30 ml PO DAILY PRN Constipation 08/05/22 08/05/22 oral suspension (Milk of Magnesia) miconazole nitrate 2 % topical 1 appl topical BEDTIME PRN skin 08/05/22 08/05/22 ointment integrity olanzapine 10 mg tablet 10 mg PO Q8H PRN agitation 08/05/22 08/05/22 Previous Rx's Medication Instructions Recorded haloperidol 5 mg tablet 5 mg PO TID #90 tabs 07/23/22 lorazepam 0.5 mg tablet (Ativan) 0.5 mg PO BID PRN anxiety #30 tabs 07/23/22 cefuroxime axetil 500 mg tablet 500 mg PO BID #10 tabs 08/07/22 prednisone 20 mg tablet 40 mg PO DAILY #10 tabs 08/07/22 Allergies Allergy/AdvReac Type Severity Reaction Status Date / Time No Known Allergies Allergy Verified 12/15/21 14:53 Review of Systems Review of Systems: Yes Unobtainable due to mental condition FOR[facility] Past Medical History Medical History Afib Anxiety disorder CHF (congestive heart failure) Cognitive disorder COPD (chronic obstructive pulmonary disease) CVA (cerebrovascular accident) Mood disorder as late effect of traumatic brain injury Traumatic brain injury Social History Social History Household Members: Unknown / Unable to assess Housing: Other Housing Other:: [facility] Unable to assess alcohol history related to: Unable to respond Alcohol intake: former Patient Tobacco Use Status: Former Tobacco user Substance Use Type: Unknown Advance Directives: Yes Advance Directives on File: Yes Advance Directives Date on File: 11/11/21 service: No Current occupational status: disabled Physical Exam Vital Signs: Vital Signs: Last Vital Signs Temp 97.9 F 08/25/22 23:55 Pulse 62 08/25/22 23:55 Resp 18 08/25/22 23:55 BP 103/62 08/25/22 23:55 Pulse Ox 94 08/25/22 23:55 O2 Del Method 08/25/22 23:55 BMI result Body Mass Index 31.6 General: The patient is resting comfortably, he does wake up but does not interact with me verbally. HEENT: Head is normal cephalic and atraumatic, pupils were equal round reactive light, sclera contact however normal mouth revealed moist membranes Neck: No adenopathy supple Lungs: Clear to auscultation breath sounds symmetric bilaterally Heart: Regular rate rhythm normal S1-S2 no murmurs rubs gallops Abdomen: Obese, soft, nontender, nondistended Skin: No evidence of cellulitis Medical Decision Making Medical Decision Making MDM Narrative: 57-year-old male sent in from his long-term care facility for evaluation of acting out and yelling at staff. The patient has had several visits here in the emergency department where he has demonstrated similar behaviors. The patient's vital signs were normal with temperature of 97.9 degrees an O2 saturation of 94% on room air. His physical examination was unremarkable. He does have an indwelling Mathias catheter and is urinalysis revealed trace blood otherwise negative. Microscopic revealed 0-2 RBCs, 0-5 WBCs, 0 2 squamous cells, 4+ bacteria. This is a relatively negative microscopic analysis in the 4+ bacteria is most likely consistent with colonization due to the chronic indwelling Mathias catheter. At this time I do not think that there is an acute medical condition that explains his behavior, he has demonstrated similar behaviors in the past while he has been here in the emergency department. These behaviors are most likely psychiatric and I do not think the patient requires hospitalization at this time so the sent back to his nursing facility. Differential Diagnosis Differential diagnosis includes but is not limited to urinary tract infection, psychiatric behavior Lab Data MDM Lab Attestation statement: I reviewed the patient's lab results. Please see MDM from my discussion of labs Labs: Lab Results 03/22/23 Range/Units 00:53 Urine Color Yellow Urine Appearance Cloudy Urine pH 7.5 (5.0-9.0) Ur Specific [place] <= 1.005 (1.005-1.025) Urine Protein Negative (Neg-Trace) mg/dL Urine Glucose (UA) Negative (Negative) mg/dL Urine Ketones Negative (Negative) mg/dL Urine Blood Trace H (Negative) Urine Nitrite Negative (Negative) Ur Leukocyte Esterase Negative (Negative) Urine RBC 0-2 (0-2) /HPF Urine WBC 0-5 (0-5) /HPF Ur Squamous Epith Cells 0-2 (0-2) /HPF Urine Bacteria 4+ (None Seen) Hyaline Casts 3-5 (0-2) /LPF Discharge Plan Discharge Clinical Impression: Agitation Patient Disposition: Xfer SNF Transfer Details: Patient's long-term care facility Additional Instructions: Your urinalysis was unremarkable, I do not think that you have a urinary tract infection at this time. Your behavior is most likely caused by your mood disorder and psychiatric illness, I do not think that she needs be hospitalized at this time therefore your being sent back to her long-term care facility. Prescriptions: No Action lorazepam [Ativan] 1 mg tablet 1 tab PO BEDTIME melatonin 5 mg capsule 2 cap PO BEDTIME mirtazapine 15 mg Tablet 15 mg PO BEDTIME atorvastatin 40 mg Tablet 40 mg PO BEDTIME gabapentin 400 mg Capsule 400 mg TID pantoprazole 40 mg Tablet,Delayed Release (Dr/Ec) 40 mg PO DAILY@1630 metoprolol tartrate 50 mg Tablet 50 mg PO BID Rx Instructions: HOLD IF SBP < 100 OR > 140 HOLD IF HR < 60 OR > 100 cetirizine 10 mg Tablet 10 mg PO DAILY docusate sodium 100 mg Capsule 100 mg PO BID furosemide 20 mg Tablet 20 mg PO DAILY PRN (Reason: fluid overload) Rx Instructions: NEEDED FOR WEIGHT GAIN > 3 POUNDS finasteride 5 mg Tablet 5 mg PO DAILY Xarelto 20 mg Tablet 20 mg PO BEDTIME Rx Instructions: must administer with evening meal midodrine 5 mg tablet 1 tab PO TIDAC azelastine 0.05 % Drops 1 drp OPHTHALMIC (EYE) Q12H PRN (Reason: Allergy Symptoms) acetaminophen 325 mg Tablet 650 mg PO TID albuterol sulfate 2.5 mg /3 mL (0.083 %) Solution For Nebulization 2.5 mg INHALATION Q8H PRN (Reason: Shortness Of Breath) polyvinyl alcohol 1.4 % Drops 1 drp OPHTHALMIC (EYE) DAILY sertraline 100 mg Tablet 100 mg PO DAILY Rx Instructions: tdd = 150 mg pseudoephedrine-guaifenesin [Mucus D] 60-600 mg Tablet Extended Release 12 Hr 1 tab PO BID PRN (Reason: Congestion) lamotrigine [Lamictal] 25 mg Tablet 25 mg PO BEDTIME Rx Instructions: tdd = 125 mg Biofreeze (menthol) 4 % Gel 1 appl TOPICAL BID Rx Instructions: apply a thin layer mid to lower back Biofreeze (menthol) 4 % Gel 1 appl TOPICAL Q2H PRN (Reason: Pain (Scale Score 1-3)) Rx Instructions: apply to mid lower back calcium carbonate 430 mg calcium (1,000 mg) Tablet,Chewable 430 mg PO Q8H PRN (Reason: Indigestion) tramadol 100 mg Tablet 100 mg PO Q6H PRN (Reason: Back Pain) furosemide 20 mg Tablet 20 mg PO DAILY Rx Instructions: HOLD FOR SBP< 100 OR > 140 HOLD IF HR < 60 OR > 100 lamotrigine [Lamictal] 100 mg Tablet 100 mg PO BEDTIME Rx Instructions: TAKE TOGETHER WITH 25 MG TAB TDD= 125 MG buspirone 15 mg tablet 1 tab PO TID budesonide-formoterol [Symbicort] 160-4.5 mcg/actuation Hfa Aerosol Inhaler 2 puff INHALATION BID baclofen 20 mg Tablet 20 mg PO BID sennosides [senna] 8.6 mg Tablet 8.6 mg PO BID Rx Instructions: HOLD FOR LOOSE BOWEL MOVEMENT Incruse Ellipta 62.5 mcg/actuation Blister With Device 1 inh INHALATION DAILY acetaminophen 325 mg Tablet 650 mg PO DAILY PRN (Reason: HEADACHE, fEVER > 100.4, BODY ACHES ) haloperidol 5 mg Tablet 5 mg PO TID Qty: 90 0RF lorazepam [Ativan] 0.5 mg tablet 0.5 mg PO BID PRN (Reason: anxiety) Qty: 30 0RF magnesium hydroxide [Milk of Magnesia] 400 mg/5 mL Suspension 30 ml PO DAILY PRN (Reason: Constipation) miconazole nitrate 2 % Ointment 1 appl TOPICAL BEDTIME PRN (Reason: skin integrity) bisacodyl 10 mg Suppository 10 mg AK BID PRN (Reason: Constipation) olanzapine 10 mg tablet 10 mg PO Q8H PRN (Reason: agitation) prednisone 20 mg Tablet 40 mg PO DAILY Qty: 10 0RF cefuroxime axetil 500 mg tablet 500 mg PO BID Qty: 10 0RF
--- NOTE | 2022-08-26 03:01 | PC.NURSE ---
Pt. remained calm and cooperative and sleeping during time in the ED. Pt. urinalysis completed and no signs of UTI. Pt. transported back to residential via ambulance.
--- NOTE | 2022-08-26 03:41 | PC.NURSE ---
Attempted to contact [facility] to give report on pt's return to the home. Nobody answered. Left message on voice mail.
== END 2022-08-26 03:01 | disposition skilled nursing facility (03) ==
PROVIDERS: Emergency Provider Emergency Medicine Emergency Medical Services
DX: R45.1 Restlessness and agitation (principal); F39 Unspecified mood [affective] disorder; F41.9 Anxiety disorder, unspecified; I48.91 Unspecified atrial fibrillation; Z87.820 Personal history of traumatic brain injury; Z79.02 Long term (current) use of antithrombotics/antiplatelets; Z79.899 Other long term (current) drug therapy; Z79.01 Long term (current) use of anticoagulants
CPT/HCPCS: 81001; 81003; 99282; 99283

== ENCOUNTER 2022-09-06 13:38 | Emergency (ER) | payer OTHER, MEDICAID, SELFPAY ==
--- NOTE | ~2022-09-06 | XR_ITS ---
EXAMINATION: XR CHEST CLINICAL INFORMATION: Chest pain COMPARISON: None available. TECHNIQUE: Frontal view of the chest was obtained. FINDINGS: The lungs are hypoexpanded but clear. The heart size is enlarged. The pulmonary vascularity is normal. No gross bony abnormality. XR/XR chest 1V IMPRESSION: Hypoexpanded lungs with mild cardiomegaly. No acute pulmonary process.
--- NOTE | ~2022-09-06 | CT_ITS ---
EXAMINATION: CT ABDOMEN AND PELVIS WITHOUT CONTRAST CLINICAL INFORMATION: Abdominal pain. COMPARISON: None available. TECHNIQUE: Multidetector volumetric imaging was performed from the superior aspect of the liver through the pubic symphysis. Sagittal and coronal reformatted images were obtained on the technologist's workstation. This CT examination was performed using dose optimization techniques as appropriate, variously including the following: *Automated exposure control *Adjustment of mA and/or kV according to patient size (this includes techniques or standardized protocols for targeted exams where dose is matched to indication/reason for exam; i.e. extremities or head) *Use of iterative reconstruction technique DLP: 948 mGy-cm FINDINGS: LUNG BASES: There is cardiomegaly. There is bilateral posterior fatty pleural deposition. Minimal coronary artery calcification is seen. LIVER, GALLBLADDER, AND BILIARY TREE: The liver is normal in size, shape, and attenuation. No focal hepatic lesion or biliary ductal dilatation is present. The gallbladder is unremarkable with no evidence of radiopaque gallstones, gallbladder wall thickening, or obvious pericholecystic inflammatory changes. PANCREAS: Unremarkable. SPLEEN: Unremarkable. ADRENAL GLANDS: Unremarkable. KIDNEYS AND URETERS: The kidneys are normal in size, shape, and attenuation. There is a 2 mm punctate radiopaque calculi lower pole calyx left kidney. There is no caliectasis or hydronephrosis. There is peripelvic fat stranding. BLADDER: Unremarkable. GASTROINTESTINAL TRACT: There is scattered stool and gas seen throughout the colon without significant distention. The small bowel loops are normal caliber. Appendix is normal caliber. Appendix is normal caliber No free air or free fluid seen. ABDOMINAL WALL: No significant hernia is appreciated. LYMPH NODES: Normal. VASCULAR: Unremarkable. PELVIC VISCERA: Unremarkable. OSSEOUS STRUCTURES: There is no aggressive lytic or sclerotic process seen. There is mild ventral spondylosis upper thoracolumbar spine. CT/CT abdomen pelvis wo IV con IMPRESSION: 1. No acute intra-abdominal process seen. 2. Mild constipation. Normal appendix. 3. Nonobstructive 2 mm radiopaque calculi lower pole calyx left kidney. Fleischner guidelines were followed.
--- NOTE | 2022-09-06 13:40 | ECG_ITS ---
Test Reason : CHEST PAIN Blood Pressure : / mmHG Vent. Rate : 078 BPM Atrial Rate : 000 BPM P-R Int : 000 ms QRS Dur : 080 ms QT Int : 394 ms P-R-T Axes : 000 -06 018 degrees QTc Int : 449 ms Atrial fibrillation Cannot rule out Anterior infarct , age undetermined Abnormal ECG When compared with ECG of 05-AUG-2022 11:49, No significant change was found Referred By: Gordo Rodriguez Electronically Signed By:Jaylan Rouse
[2022-09-06 13:43] VITALS: BP 102/72; BP 116/85; PULSE 62; PULSE 71; RESP 18; TEMP 36.9; O2SAT 95; BMI 23.1
--- NOTE | 2022-09-06 14:02 | ED.CHESTPAIN ---
HPI - Chest Pain General Chief Complaint: Chest Pain Stated Complaint: chest pain Time Seen by Provider: 09/06/22 13:40 Source: patient, EMS, RN notes reviewed and old records reviewed Mode of arrival: EMS Limitations: other (poor historian) History of Present Illness HPI narrative: This is a 89-hlvm-oat-non-ambulatory male, with a past medical history of CVA with left hemiparesis, permanent afib on xarelto, chronic diastolic CHF, chronic hypoxic respiratory failure due to COPD on 2L, mood disorder, TBI, anxiety, who is a poor historian, that presents to the emergency department from [facility] [place] via EMS, 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 Per EMS, patient developed chest pain while having a bowel movement. Patient reports that he has a headache, abdominal pain, chest pain and shortness of breath. He states the worst pain he is having is in his chest. Patient received 1 81mg ASA tablet as patient refused chewing other tablets. Per EMS, patient currently being treated for UTI, on abx. No other complaints or concerns at this time. MD complaint: chest pain Onset (ago): hour(s) Timing of current episode: constant Prior episodes: Yes Onset: other (with bowel movement) Pain location: substernal Pain radiation: none Relieving factors: nothing Exacerbating factors: nothing Context: recent illness Associated symptoms: nausea and dyspnea Treatment prior to arrival: aspirin Related Data Home Medications Medication Instructions Recorded Confirmed atorvastatin 40 mg tablet 40 mg PO BEDTIME 02/28/22 08/05/22 gabapentin 400 mg capsule 400 mg TID 02/28/22 08/05/22 lorazepam 1 mg tablet (Ativan) 1 tab PO BEDTIME 02/28/22 08/05/22 melatonin 5 mg capsule 2 cap PO BEDTIME 02/28/22 08/05/22 metoprolol tartrate 50 mg tablet 50 mg PO BID 02/28/22 08/05/22 mirtazapine 15 mg tablet 15 mg PO BEDTIME 02/28/22 08/05/22 pantoprazole 40 mg tablet,delayed 40 mg PO DAILY@1630 02/28/22 08/05/22 release cetirizine 10 mg tablet 10 mg PO DAILY 03/01/22 08/05/22 docusate sodium 100 mg capsule 100 mg PO BID 03/01/22 08/05/22 finasteride 5 mg tablet 5 mg PO DAILY 03/01/22 08/05/22 furosemide 20 mg tablet 20 mg PO DAILY PRN fluid overload 03/01/22 08/05/22 midodrine 5 mg tablet 1 tab PO TIDAC 03/01/22 08/05/22 rivaroxaban 20 mg tablet (Xarelto) 20 mg PO BEDTIME 03/01/22 08/05/22 acetaminophen 325 mg tablet 650 mg PO TID 03/28/22 08/05/22 albuterol sulfate 2.5 mg/3 mL 2.5 mg inhalation Q8H PRN 03/28/22 08/05/22 (0.083 %) solution for nebulization Shortness Of Breath azelastine 0.05 % eye drops 1 drp ophthalmic (eye) Q12H PRN 03/28/22 08/05/22 Allergy Symptoms calcium carbonate 430 mg calcium 430 mg PO Q8H PRN Indigestion 03/28/22 08/05/22 (1,000 mg) chewable tablet furosemide 20 mg tablet 20 mg PO DAILY 03/28/22 08/05/22 lamotrigine 100 mg tablet 100 mg PO BEDTIME 03/28/22 08/05/22 (Lamictal) lamotrigine 25 mg tablet (Lamictal) 25 mg PO BEDTIME 03/28/22 08/05/22 menthol 4 % topical gel (Biofreeze 1 appl topical BID 03/28/22 08/05/22 (menthol)) menthol 4 % topical gel (Biofreeze 1 appl topical Q2H PRN Pain (Scale 03/28/22 08/05/22 (menthol)) Score 1-3) polyvinyl alcohol 1.4 % eye drops 1 drp ophthalmic (eye) DAILY 03/28/22 08/05/22 pseudoephedrine-guaifenesin ER 60 1 tab PO BID PRN Congestion 03/28/22 08/05/22 mg-600 mg tablet,extend release 12hr (Mucus D) sertraline 100 mg tablet 100 mg PO DAILY 03/28/22 08/05/22 tramadol 100 mg tablet 100 mg PO Q6H PRN Back Pain 03/28/22 08/05/22 acetaminophen 325 mg tablet 650 mg PO DAILY PRN HEADACHE, 07/17/22 08/05/22 fEVER > 100.4, BODY ACHES baclofen 20 mg tablet 20 mg PO BID 07/17/22 08/05/22 budesonide-formoterol HFA 160 2 puff inhalation BID 07/17/22 08/05/22 mcg-4.5 mcg/actuation aerosol inhaler (Symbicort) buspirone 15 mg tablet 1 tab PO TID 07/17/22 08/05/22 sennosides 8.6 mg tablet (senna) 8.6 mg PO BID 07/17/22 08/05/22 umeclidinium 62.5 mcg/actuation 1 inh inhalation DAILY 07/17/22 08/05/22 blister powder for inhalation (Incruse Ellipta) bisacodyl 10 mg rectal suppository 10 mg NE BID PRN Constipation 08/05/22 08/05/22 magnesium hydroxide 400 mg/5 mL 30 ml PO DAILY PRN Constipation 08/05/22 08/05/22 oral suspension (Milk of Magnesia) miconazole nitrate 2 % topical 1 appl topical BEDTIME PRN skin 08/05/22 08/05/22 ointment integrity olanzapine 10 mg tablet 10 mg PO Q8H PRN agitation 08/05/22 08/05/22 Previous Rx's Medication Instructions Recorded haloperidol 5 mg tablet 5 mg PO TID #90 tabs 07/23/22 lorazepam 0.5 mg tablet (Ativan) 0.5 mg PO BID PRN anxiety #30 tabs 07/23/22 cefuroxime axetil 500 mg tablet 500 mg PO BID #10 tabs 08/07/22 prednisone 20 mg tablet 40 mg PO DAILY #10 tabs 08/07/22 Allergies Allergy/AdvReac Type Severity Reaction Status Date / Time No Known Allergies Allergy Verified 12/15/21 14:53 Review of Systems Review of Systems: Yes all other systems are reviewed and are negative [facility] Past Medical History Attestation statement: The following information was validated with the patient. Medical History Afib Anxiety disorder CHF (congestive heart failure) Cognitive disorder COPD (chronic obstructive pulmonary disease) CVA (cerebrovascular accident) Mood disorder as late effect of traumatic brain injury Traumatic brain injury Social History Social History Household Members: Unknown / Unable to assess Housing: Other Housing Other:: [facility] [place] Unable to assess alcohol history related to: Unable to respond Alcohol intake: never Patient Tobacco Use Status: Former Tobacco user Smoked in Last 30 Days: No Use of substances other than those prescribed or required for medical reasons: No Substance Use Type: Unknown Advance Directives: Yes Advance Directives on File: Yes Advance Directives Date on File: 11/11/21 service: No Current occupational status: disabled Physical Exam Vital Signs: Vital Signs: Last Vital Signs Temp 98.2 F 09/06/22 17:44 Pulse 65 09/06/22 17:44 Resp 22 H 09/06/22 17:44 BP 121/67 09/06/22 17:44 Pulse Ox 94 09/06/22 17:44 O2 Del Method Nasal Cannula 09/06/22 17:44 O2 Flow Rate 2 09/06/22 17:44 Oxygen Flow Rate 2 09/06/22 13:43 BMI result Body Mass Index 23.1 Appearance: Alert. Oriented X3. Eyes: Pupils equal, round and reactive to light. EOMI ENT: Pharynx normal. Dry mucus membranes. Neck: Normal inspection. Neck supple. CVS:Irregularly irregular. Respiratory: No respiratory distress. Breath sounds normal. Diminished lung sounds in the left lower base. No wheezes, rhonchi or rales. Abdomen: Obese abdomen is soft and nontender, normoactive bowel sounds. Skin: Skin warm and dry. Normal skin color. Normal skin turgor. No rashes. Extremities: No lower extremity edema bilaterally. Neuro: Oriented X 3. Tongue deviated to the right (previous CVA) Course Reevaluation(s) Reevaluation #1: upon further evaluation, patient's abdomen is diffusely tender throughout, CT abdomen ordered. Patient also requesting afternoon medications, verification via medication list provided via EMS. Routine afternoon medications ordered. Troponin x1 is negative, will repeat in 3 hours to trend. Time: 15:10 Reevaluation #2: Patient re-evaluated. Still reports that he has some chest pain, although improved since his arrival. Requesting warm blanket and to be discharged. All other labs nondiagnostic. Second troponin and urinalysis pending. Time: 17:01 Reevaluation #3: second troponin return and is unchanged. VSS. Cardiac workup performed and is negative. Mild constipation seen on CT abdomen. Advised to utilize prn constipation medications at [facility] [place], as this is already in his records that he has access to. No medication changes initiated. Discussed results with patient and he agrees with this plan. Stable for discharge, ambulance paged for transfer back to [facility] [place]. Time: 18:04 Medications Administered Discontinued Medications Generic Name Dose Route Start Last Admin Trade Name Marcel PRN Reason Stop Dose Admin Acetaminophen 975 mg 09/06/22 14:53 09/06/22 15:26 Acetaminophen 325 Mg Tablet PO 09/06/22 14:54 975 mg ONCE ONE Administration Buspirone HCl 15 mg 09/06/22 14:53 09/06/22 15:26 Buspirone Hcl 10 Mg Tablet PO 09/06/22 14:54 15 mg ONCE ONE Administration Finasteride 5 mg 09/06/22 14:53 09/06/22 15:26 Finasteride 5 Mg Tablet PO 09/06/22 14:54 5 mg ONCE ONE Administration Haloperidol 5 mg 09/06/22 14:53 09/06/22 15:26 Haloperidol 5 Mg Tablet PO 09/06/22 14:54 5 mg ONCE ONE Administration Omeprazole 40 mg 09/06/22 14:53 09/06/22 15:26 Omeprazole 40 Mg Capsule. 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 Associated shortness of breath, headache, abdominal pain and nausea. Patient saturating at 95% on 2L NC. All other VS are within normal limits. Plan: EKG, chest x-ray, cbc, bmp, magnesium, troponin, bnp, viral swabs and UA ordered. Differential Diagnosis Differential Diagnoses: The differential diagnosis associated with the presentation includes ACS, pneumonia, pneumothorax, PE - unlikely, COVID, AAA - unlikely, angina, UTI Lab Data [facility] Lab Attestation statement: I reviewed the patient's lab results. 09/06/22 14:12 09/06/22 14:12 Labs: Lab Results 04/07/3009/06/22 09/06/22 Range/Units 14:12 14:12 14:12 WBC 8.5 (4.8-10.8) X10*3/uL RBC 4.66 (4.60-5.80) X10*6/uL Hgb 13.7 L (14.0-18.0) g/dl Hct 41.5 L (42.0-52.0) % MCV 89.1 (80.0-98.0) fL MCH 29.4 (27.0-33.0) pg MCHC 33.0 (31.0-36.0) g/dl RDW 13.9 (11.0-16.0) % Plt Count 241 (160-400) X10*3/uL MPV 9.5 (9.4-12.4) fL Immature Gran % (Auto) 0.9 H (0.0-0.4) % Neut % (Auto) 46.8 (45-73) % Lymph % (Auto) 45.5 H (20-40) % Stewart % (Auto) 4.9 (2-11) % Eos % (Auto) 1.3 (0-4) % Baso % (Auto) 0.6 (0-2) % Lymph # (Auto) 3.9 (1.2-4.9) X10*3/uL Stewart # (Auto) 0.4 (0.1-1.2) X10*3/uL Eos # (Auto) 0.1 (0.0-0.4) X10*3/uL Baso # (Auto) 0.1 (0.0-0.2) X10*3/uL Abs Immat Gran (auto) 0.08 H (0.00-0.03) X10*3/uL Absolute Neuts (auto) 4.0 (2.0-8.3) x10*3/uL Absolute Nucleated RBC 0.000 (0.0-0.012) X10*3/uL Nucleated RBC % (auto) 0.0 (0.0-0.2) /100WBC Sodium 140 (135-145) mmol/L Potassium 3.8 (3.3-5.1) mmol/L Chloride 104 (96-108) mmol/L Carbon Dioxide 27 (22-29) mmol/L Anion Gap 13 (12-20) BUN 7 L (9-16) mg/dL Creatinine 0.79 (0.5-1.4) mg/dL Estim Creat Clear Calc 122.0 Estimated GFR > 60 Random Glucose 99 (60-115) mg/dL Calcium 9.2 (8.4-10.2) mg/dL Magnesium 2.0 (1.6-2.6) mg/dL Total Bilirubin 0.7 (0.0-1.0) mg/dL Direct Bilirubin 0.2 (0.0-0.5) mg/dL AST 15 (5-37) U/L ALT 19 (0-40) U/L Alkaline Phosphatase 110 (39-117) U/L Troponin I High Sens < 3.5 (<3.5-35.0) ng/L B-Natriuretic Peptide (<100) pg/mL Total Protein 5.9 L (6.5-8.0) g/dL Albumin 4.0 (3.5-5.0) g/dL Lipase 16 (8-78) U/L Urine Color Urine Appearance Urine pH (5.0-9.0) Ur Specific Snelling (1.005-1.025) Urine Protein (Neg-Trace) mg/dL Urine Glucose (UA) (Negative) mg/dL Urine Ketones (Negative) mg/dL Urine Blood (Negative) Urine Nitrite (Negative) Ur Leukocyte Esterase (Negative) Urine RBC (0-2) /HPF Urine WBC (0-5) /HPF Ur Squamous Epith Cells (0-2) /HPF Urine Bacteria (None Seen) Hyaline Casts (0-2) /LPF Influenza Type A (PCR) (Negative) Influenza Type B (PCR) (Negative) RSV RNA Qual (PCR) (Negative) SARS-CoV-2 RNA (RT-PCR) (Negative) 09/06/22 09/06/22 09/06/22 Range/Units 14:12 14:12 17:18 WBC (4.8-10.8) X10*3/uL RBC (4.60-5.80) X10*6/uL Hgb (14.0-18.0) g/dl Hct (42.0-52.0) % MCV (80.0-98.0) fL MCH (27.0-33.0) pg MCHC (31.0-36.0) g/dl RDW (11.0-16.0) % Plt Count (160-400) X10*3/uL MPV (9.4-12.4) fL Immature Gran % (Auto) (0.0-0.4) % Neut % (Auto) (45-73) % Lymph % (Auto) (20-40) % Stewart % (Auto) (2-11) % Eos % (Auto) (0-4) % Baso % (Auto) (0-2) % Lymph # (Auto) (1.2-4.9) X10*3/uL Stewart # (Auto) (0.1-1.2) X10*3/uL Eos # (Auto) (0.0-0.4) X10*3/uL Baso # (Auto) (0.0-0.2) X10*3/uL Abs Immat Gran (auto) (0.00-0.03) X10*3/uL Absolute Neuts (auto) (2.0-8.3) x10*3/uL Absolute Nucleated RBC (0.0-0.012) X10*3/uL Nucleated RBC % (auto) (0.0-0.2) /100WBC Sodium (135-145) mmol/L Potassium (3.3-5.1) mmol/L Chloride (96-108) mmol/L Carbon Dioxide (22-29) mmol/L Anion Gap (12-20) BUN (9-16) mg/dL Creatinine (0.5-1.4) mg/dL Estim Creat Clear Calc Estimated GFR Random Glucose (60-115) mg/dL Calcium (8.4-10.2) mg/dL Magnesium (1.6-2.6) mg/dL Total Bilirubin (0.0-1.0) mg/dL Direct Bilirubin (0.0-0.5) mg/dL AST (5-37) U/L ALT (0-40) U/L Alkaline Phosphatase (39-117) U/L Troponin I High Sens 3.5 (<3.5-35.0) ng/L B-Natriuretic Peptide 33 (<100) pg/mL Total Protein (6.5-8.0) g/dL Albumin (3.5-5.0) g/dL Lipase (8-78) U/L Urine Color Urine Appearance Urine pH (5.0-9.0) Ur Specific Snelling (1.005-1.025) Urine Protein (Neg-Trace) mg/dL Urine Glucose (UA) (Negative) mg/dL Urine Ketones (Negative) mg/dL Urine Blood (Negative) Urine Nitrite (Negative) Ur Leukocyte Esterase (Negative) Urine RBC (0-2) /HPF Urine WBC (0-5) /HPF Ur Squamous Epith Cells (0-2) /HPF Urine Bacteria (None Seen) Hyaline Casts (0-2) /LPF Influenza Type A (PCR) NEGATIVE (Negative) Influenza Type B (PCR) NEGATIVE (Negative) RSV RNA Qual (PCR) NEGATIVE (Negative) SARS-CoV-2 RNA (RT-PCR) NEGATIVE (Negative) 09/06/22 Range/Units 17:19 WBC (4.8-10.8) X10*3/uL RBC (4.60-5.80) X10*6/uL Hgb (14.0-18.0) g/dl Hct (42.0-52.0) % MCV (80.0-98.0) fL MCH (27.0-33.0) pg MCHC (31.0-36.0) g/dl RDW (11.0-16.0) % Plt Count (160-400) X10*3/uL MPV (9.4-12.4) fL Immature Gran % (Auto) (0.0-0.4) % Neut % (Auto) (45-73) % Lymph % (Auto) (20-40) % Stewart % (Auto) (2-11) % Eos % (Auto) (0-4) % Baso % (Auto) (0-2) % Lymph # (Auto) (1.2-4.9) X10*3/uL Stewart # (Auto) (0.1-1.2) X10*3/uL Eos # (Auto) (0.0-0.4) X10*3/uL Baso # (Auto) (0.0-0.2) X10*3/uL Abs Immat Gran (auto) (0.00-0.03) X10*3/uL Absolute Neuts (auto) (2.0-8.3) x10*3/uL Absolute Nucleated RBC (0.0-0.012) X10*3/uL Nucleated RBC % (auto) (0.0-0.2) /100WBC Sodium (135-145) mmol/L Potassium (3.3-5.1) mmol/L Chloride (96-108) mmol/L Carbon Dioxide (22-29) mmol/L Anion Gap (12-20) BUN (9-16) mg/dL Creatinine (0.5-1.4) mg/dL Estim Creat Clear Calc Estimated GFR Random Glucose (60-115) mg/dL Calcium (8.4-10.2) mg/dL Magnesium (1.6-2.6) mg/dL Total Bilirubin (0.0-1.0) mg/dL Direct Bilirubin (0.0-0.5) mg/dL AST (5-37) U/L ALT (0-40) U/L Alkaline Phosphatase (39-117) U/L Troponin I High Sens (<3.5-35.0) ng/L B-Natriuretic Peptide (<100) pg/mL Total Protein (6.5-8.0) g/dL Albumin (3.5-5.0) g/dL Lipase (8-78) U/L Urine Color Yellow Urine Appearance Clear Urine pH 5.5 (5.0-9.0) Ur Specific Snelling <= 1.005 (1.005-1.025) Urine Protein Negative (Neg-Trace) mg/dL Urine Glucose (UA) Negative (Negative) mg/dL Urine Ketones Negative (Negative) mg/dL Urine Blood Negative (Negative) Urine Nitrite Negative (Negative) Ur Leukocyte Esterase Trace H (Negative) Urine RBC 0-2 (0-2) /HPF Urine WBC 0-5 (0-5) /HPF Ur Squamous Epith Cells 0-2 (0-2) /HPF Urine Bacteria None Seen (None Seen) Hyaline Casts 0-2 (0-2) /LPF Influenza Type A (PCR) (Negative) Influenza Type B (PCR) (Negative) RSV RNA Qual (PCR) (Negative) SARS-CoV-2 RNA (RT-PCR) (Negative) Independent Interpretation I performed an independent interpretation of an: EKG Interpretation: Atrial fibrillation at a ventricular rate of 78bpm, QRS duration 80, and QTC 449. Radiology Impression Discussion of test interpretation with radiology: I have reviewed the radiologist's reading. Radiologist Impression: EXAMINATION: XR CHEST CLINICAL INFORMATION: Chest pain COMPARISON: None available. TECHNIQUE: Frontal view of the chest was obtained. FINDINGS: The lungs are hypoexpanded but clear. The heart size is enlarged. The pulmonary vascularity is normal. No gross bony abnormality. XR/XR chest 1V IMPRESSION: Hypoexpanded lungs with mild cardiomegaly. No acute pulmonary process. ? Dictated By: Karan Jones MD Signed By: <Electronically signed by Karan Jones MD in OV> 09/06/22 1441 Independent Historian Clinical information obtained from an independent historian. History obtained from or confirmed by: EMS External Record Review External record reviewed: Inpatient record Discharge Plan Discharge Clinical Impression: Chest pain Patient Disposition: Xfer Other Transfer Details: Nursing Home Instructions: Chest Pain (ED) Additional Instructions: You received all your typical afternoon medications today - Finasteride 5mg, Haloperidol 5mg once, omeprazole 40mg once, buspare 15mg once, and tylenol 975mg once today. PLEASE GIVE PATIENT PRN CONSTIPATION MEDS UPON ARRIVAL. Your chest x-ray was normal today. Your EKG showed a-fib, and your cardiac enzymes were normal today. Your CT abdomen shows mild constipation. Please continue your regular medications as directed. If you develop any new or worsening symptoms, please return for re-evaluation. Prescriptions: No Action lorazepam [Ativan] 1 mg tablet 1 tab PO BEDTIME melatonin 5 mg capsule 2 cap PO BEDTIME mirtazapine 15 mg Tablet 15 mg PO BEDTIME atorvastatin 40 mg Tablet 40 mg PO BEDTIME gabapentin 400 mg Capsule 400 mg TID pantoprazole 40 mg Tablet,Delayed Release (Dr/Ec) 40 mg PO DAILY@1630 metoprolol tartrate 50 mg Tablet 50 mg PO BID Rx Instructions: HOLD IF SBP < 100 OR > 140 HOLD IF HR < 60 OR > 100 cetirizine 10 mg Tablet 10 mg PO DAILY docusate sodium 100 mg Capsule 100 mg PO BID furosemide 20 mg Tablet 20 mg PO DAILY PRN (Reason: fluid overload) Rx Instructions: NEEDED FOR WEIGHT GAIN > 3 POUNDS finasteride 5 mg Tablet 5 mg PO DAILY Xarelto 20 mg Tablet 20 mg PO BEDTIME Rx Instructions: must administer with evening meal midodrine 5 mg tablet 1 tab PO TIDAC azelastine 0.05 % Drops 1 drp OPHTHALMIC (EYE) Q12H PRN (Reason: Allergy Symptoms) acetaminophen 325 mg Tablet 650 mg PO TID albuterol sulfate 2.5 mg /3 mL (0.083 %) Solution For Nebulization 2.5 mg INHALATION Q8H PRN (Reason: Shortness Of Breath) polyvinyl alcohol 1.4 % Drops 1 drp OPHTHALMIC (EYE) DAILY sertraline 100 mg Tablet 100 mg PO DAILY Rx Instructions: tdd = 150 mg pseudoephedrine-guaifenesin [Mucus D] 60-600 mg Tablet Extended Release 12 Hr 1 tab PO BID PRN (Reason: Congestion) lamotrigine [Lamictal] 25 mg Tablet 25 mg PO BEDTIME Rx Instructions: tdd = 125 mg Biofreeze (menthol) 4 % Gel 1 appl TOPICAL BID Rx Instructions: apply a thin layer mid to lower back Biofreeze (menthol) 4 % Gel 1 appl TOPICAL Q2H PRN (Reason: Pain (Scale Score 1-3)) Rx Instructions: apply to mid lower back calcium carbonate 430 mg calcium (1,000 mg) Tablet,Chewable 430 mg PO Q8H PRN (Reason: Indigestion) tramadol 100 mg Tablet 100 mg PO Q6H PRN (Reason: Back Pain) furosemide 20 mg Tablet 20 mg PO DAILY Rx Instructions: HOLD FOR SBP< 100 OR > 140 HOLD IF HR < 60 OR > 100 lamotrigine [Lamictal] 100 mg Tablet 100 mg PO BEDTIME Rx Instructions: TAKE TOGETHER WITH 25 MG TAB TDD= 125 MG buspirone 15 mg tablet 1 tab PO TID budesonide-formoterol [Symbicort] 160-4.5 mcg/actuation Hfa Aerosol Inhaler 2 puff INHALATION BID baclofen 20 mg Tablet 20 mg PO BID sennosides [senna] 8.6 mg Tablet 8.6 mg PO BID Rx Instructions: HOLD FOR LOOSE BOWEL MOVEMENT Incruse Ellipta 62.5 mcg/actuation Blister With Device 1 inh INHALATION DAILY acetaminophen 325 mg Tablet 650 mg PO DAILY PRN (Reason: HEADACHE, fEVER > 100.4, BODY ACHES ) haloperidol 5 mg Tablet 5 mg PO TID Qty: 90 0RF lorazepam [Ativan] 0.5 mg tablet 0.5 mg PO BID PRN (Reason: anxiety) Qty: 30 0RF magnesium hydroxide [Milk of Magnesia] 400 mg/5 mL Suspension 30 ml PO DAILY PRN (Reason: Constipation) miconazole nitrate 2 % Ointment 1 appl TOPICAL BEDTIME PRN (Reason: skin integrity) bisacodyl 10 mg Suppository 10 mg NE BID PRN (Reason: Constipation) olanzapine 10 mg tablet 10 mg PO Q8H PRN (Reason: agitation) prednisone 20 mg Tablet 40 mg PO DAILY Qty: 10 0RF cefuroxime axetil 500 mg tablet 500 mg PO BID Qty: 10 0RF
[2022-09-06 14:19] LABS: MANUAL DIFF FLAG NO
[2022-09-06 14:23] LABS: Basophils Absolute Auto 0.1 X10*3/uL (0.0-0.2); Basophils Percent Auto 0.6 % (0-2); Eosinophils Absolute Auto 0.1 X10*3/uL (0.0-0.4); Eosinophils Percent Auto 1.3 % (0-4); Hematocrit 41.5 % (42.0-52.0); Hemoglobin 13.7 g/dl (14.0-18.0); Imm Gran Abs Auto 0.08 X10*3/uL (0.00-0.03); Imm Gran Pct Auto 0.9 % (0.0-0.4); Lymphocytes Absolute Auto 3.9 X10*3/uL (1.2-4.9); Lymphocytes Percent Auto 45.5 % (20-40); Mean Corpuscular Hemoglobin 29.4 pg (27.0-33.0); Mean Corpuscular Volume 89.1 fL (80.0-98.0); Mean Platelet Volume 9.5 fL (9.4-12.4); Monocytes Absolute Auto 0.4 X10*3/uL (0.1-1.2); Monocytes Percent Auto 4.9 % (2-11); Neutrophils Percent Auto 46.8 % (45-73); Platelet Count 241 X10*3/uL (160-400); Red Blood Count 4.66 X10*6/uL (4.60-5.80); Red Cell Distribution Width 13.9 % (11.0-16.0); White Blood Count 8.5 X10*3/uL (4.8-10.8)
[2022-09-06 14:34] LABS: Alanine Aminotransferase 19 U/L (0-40); Alkaline Phosphatase 110 U/L (39-117); Anion Gap 13 (12-20); Aspartate Amino Transferase 15 U/L (5-37); Bilirubin Direct 0.2 mg/dL (0.0-0.5); Bilirubin Total 0.7 mg/dL (0.0-1.0); Blood Urea Nitrogen 7 mg/dL (9-16); Calcium 9.2 mg/dL (8.4-10.2); Carbon Dioxide 27 mmol/L (22-29); Chloride 104 mmol/L (96-108); Estimated Glomerular Filt Rate > 60; Glucose Random 99 mg/dL (60-115); Lipase 16 U/L (8-78); Potassium 3.8 mmol/L (3.3-5.1); Sodium 140 mmol/L (135-145); Total Protein 5.9 g/dL (6.5-8.0)
[2022-09-06 14:40] LABS: B Type Natriuretic Peptide 33 pg/mL (<100)
[2022-09-06 14:45] LABS: Troponin-I High Sensitivity < 3.5 ng/L (<3.5-35.0)
[2022-09-06 15:18] LABS: Influenza A PCR NEGATIVE (Negative); Influenza B PCR NEGATIVE (Negative); Resp Syncy Virus RNA Qual PCR NEGATIVE (Negative); SARS COV2 PCR INHOUSE NEGATIVE (Negative)
[2022-09-06] MEDS: Acetaminophen 325 MG TABLET 975 MG PO (15:26)
[2022-09-06] MEDS: Omeprazole 40 MG CAPSULE.DR PO (15:26)
[2022-09-06] MEDS: Finasteride 5 MG TABLET PO (15:26)
[2022-09-06] MEDS: busPIRone HCl 10 MG TABLET 15 MG PO (15:26)
[2022-09-06] MEDS: HaloperidoL 5 MG TABLET PO (15:26)
--- NOTE | 2022-09-06 16:18 | MHC.EDTECH ---
pt states that condom cath was leaking when this tech checked to see the placement of it, the condom was completely off, pt is cleaned, new condom was provided and placed, warm blanket given, pt is comfortable . rn aware.
[2022-09-06 17:24] LABS: Appearance Urine Clear; Color Urine Yellow; Glucose Urine UA Negative (Negative); Leukocyte Esterase Urine Trace (Negative); Nitrite Urine Negative (Negative); PH 5.5 (5.0-9.0); Specific Gravity - Urine <= 1.005 (1.005-1.025); UMIC TRIGGER UACC YES; Urine Blood Negative (Negative); Urine Ketones Negative (Negative); Urine Protein Negative (Neg-Trace)
[2022-09-06 17:35] LABS: Bacteria Urine None Seen (None Seen); Hyaline Casts Urine 0-2 /LPF (0-2); RBC Urine 0-2 /HPF (0-2); Squamous Epithelial Cell Urine 0-2 /HPF (0-2); WBC Urine 0-5 /HPF (0-5)
[2022-09-06 17:44] VITALS: BP 121/67; PULSE 65; RESP 22; TEMP 36.8; O2SAT 94
[2022-09-06 17:47] LABS: Troponin-I High Sensitivity 3.5 ng/L (<3.5-35.0)
[2022-09-06 18:26] VITALS: BP 121/67; PULSE 67
== END 2022-09-06 18:29 | disposition other institution (70) ==
PROVIDERS: Physician Assistant Medical; Emergency Provider Emergency Medicine; PCP Family Medicine
DX: R07.89 Other chest pain (principal); R06.02 Shortness of breath; Z20.822 Contact with and (suspected) exposure to COVID-19; Z20.828 Contact with and (suspected) exposure to other viral communicable diseases; Z86.73 Personal history of transient ischemic attack (TIA), and cerebral infarction without residual deficits; Z87.891 Personal history of nicotine dependence
CPT/HCPCS: 0241U; 36415; 71045; 74176; 80048; 80076; 81001; 83690; 83735; 83880; 84484; 85025; 93005; 99285

== ENCOUNTER 2022-09-12 17:05 | Emergency (ER) | payer OTHER, SELFPAY ==
--- NOTE | ~2022-09-12 | XR_ITS ---
EXAMINATION: XR CHEST CLINICAL INFORMATION: Chest pain COMPARISON: Multiple priors with the last chest x-ray of 09/07/2019. Selected images of the chest CT of 04/26/2023. TECHNIQUE: 2 views of the chest were obtained. Best possible images are obtained given the patient's clinical status. FINDINGS: Evaluation on the lateral view is significantly limited. Cardiomediastinal silhouette is unchanged. No abnormal tracheal deviation. The lungs are mildly hypoexpanded with bronchovascular crowding. Mild interstitial prominence is noted. No significant pleural effusions, focal consolidation or pneumothorax. Multiple cardiac leads and wires overlie the chest. XR/XR chest 2V IMPRESSION: Probable mild interstitial edema. No convincing radiographic evidence of pneumonia.
--- NOTE | 2022-09-12 17:10 | ECG_ITS ---
Test Reason : CHEST PAIN Blood Pressure : / mmHG Vent. Rate : 076 BPM Atrial Rate : 000 BPM P-R Int : 000 ms QRS Dur : 080 ms QT Int : 388 ms P-R-T Axes : 000 001 008 degrees QTc Int : 436 ms Atrial fibrillation Nonspecific T wave abnormality Abnormal ECG When compared with ECG of 06-SEP-2022 13:50, No significant change was found Referred By: Nenita Pete Electronically Signed By:Jaylan Rouse
[2022-09-12 17:15] VITALS: BP 117/85; PULSE 108; O2SAT 97
[2022-09-12 17:16] VITALS: BP 103/62; PULSE 77; RESP 18; TEMP 36.7; O2SAT 88; BMI 33.9
[2022-09-12 17:17] VITALS: O2SAT 94
--- NOTE | 2022-09-12 17:42 | PC.NURSE ---
patient alert to person/place, c/o mid sternal/left chest pain 9/10 pain, monitoring engineer applied- afib on monitor, vss, ekg performed, pt has chronic lopez cath which is patient/draining dark yellow urine, call rush within reach, will continue to monitor.
--- NOTE | 2022-09-12 18:08 | ED_ITS ---
HPI - Chest Pain General Chief Complaint: Chest Pain Stated Complaint: CP, FROM HALF-WAY PER EMS Time Seen by Provider: 09/12/22 17:51 Source: patient, RN notes reviewed and old records reviewed Mode of arrival: EMS Limitations: other (Patient is a very poor historian) History of Present Illness HPI narrative: A 57-year-old male past medical history significant for CVA with left hemiparesis, AFib on Xarelto, CHF, COPD on 2 L nasal cannula, mood disorder, TBI, anxiety who presents for evaluation of chest pain. Patient reports chest pain is started at 1:00 p.m., about 4 hours prior to arrival. He reports his chest pain is intermittent, achy, 8/10. His pain is not related to exertion. He denies any nausea vomiting, cough, shortness of breath. He denies any fevers, chills. He does not know if he took any medication to help alleviate his symptoms Related Data Home Medications Medication Instructions Recorded Confirmed atorvastatin 40 mg tablet 40 mg PO BEDTIME 02/28/22 08/05/22 gabapentin 400 mg capsule 400 mg TID 02/28/22 08/05/22 lorazepam 1 mg tablet (Ativan) 1 tab PO BEDTIME 02/28/22 08/05/22 melatonin 5 mg capsule 2 cap PO BEDTIME 02/28/22 08/05/22 metoprolol tartrate 50 mg tablet 50 mg PO BID 02/28/22 08/05/22 mirtazapine 15 mg tablet 15 mg PO BEDTIME 02/28/22 08/05/22 pantoprazole 40 mg tablet,delayed 40 mg PO DAILY@1630 02/28/22 08/05/22 release cetirizine 10 mg tablet 10 mg PO DAILY 03/01/22 08/05/22 docusate sodium 100 mg capsule 100 mg PO BID 03/01/22 08/05/22 finasteride 5 mg tablet 5 mg PO DAILY 03/01/22 08/05/22 furosemide 20 mg tablet 20 mg PO DAILY PRN fluid overload 03/01/22 08/05/22 midodrine 5 mg tablet 1 tab PO TIDAC 03/01/22 08/05/22 rivaroxaban 20 mg tablet (Xarelto) 20 mg PO BEDTIME 03/01/22 08/05/22 acetaminophen 325 mg tablet 650 mg PO TID 03/28/22 08/05/22 albuterol sulfate 2.5 mg/3 mL 2.5 mg inhalation Q8H PRN 03/28/22 08/05/22 (0.083 %) solution for nebulization Shortness Of Breath azelastine 0.05 % eye drops 1 drp ophthalmic (eye) Q12H PRN 03/28/22 08/05/22 Allergy Symptoms calcium carbonate 430 mg calcium 430 mg PO Q8H PRN Indigestion 03/28/22 08/05/22 (1,000 mg) chewable tablet furosemide 20 mg tablet 20 mg PO DAILY 03/28/22 08/05/22 lamotrigine 100 mg tablet 100 mg PO BEDTIME 03/28/22 08/05/22 (Lamictal) lamotrigine 25 mg tablet (Lamictal) 25 mg PO BEDTIME 03/28/22 08/05/22 menthol 4 % topical gel (Biofreeze 1 appl topical BID 03/28/22 08/05/22 (menthol)) menthol 4 % topical gel (Biofreeze 1 appl topical Q2H PRN Pain (Scale 03/28/22 08/05/22 (menthol)) Score 1-3) polyvinyl alcohol 1.4 % eye drops 1 drp ophthalmic (eye) DAILY 03/28/22 08/05/22 pseudoephedrine-guaifenesin ER 60 1 tab PO BID PRN Congestion 03/28/22 08/05/22 mg-600 mg tablet,extend release 12hr (Mucus D) sertraline 100 mg tablet 100 mg PO DAILY 03/28/22 08/05/22 tramadol 100 mg tablet 100 mg PO Q6H PRN Back Pain 03/28/22 08/05/22 acetaminophen 325 mg tablet 650 mg PO DAILY PRN HEADACHE, 07/17/22 08/05/22 fEVER > 100.4, BODY ACHES baclofen 20 mg tablet 20 mg PO BID 07/17/22 08/05/22 budesonide-formoterol HFA 160 2 puff inhalation BID 07/17/22 08/05/22 mcg-4.5 mcg/actuation aerosol inhaler (Symbicort) buspirone 15 mg tablet 1 tab PO TID 07/17/22 08/05/22 sennosides 8.6 mg tablet (senna) 8.6 mg PO BID 07/17/22 08/05/22 umeclidinium 62.5 mcg/actuation 1 inh inhalation DAILY 07/17/22 08/05/22 blister powder for inhalation (Incruse Ellipta) bisacodyl 10 mg rectal suppository 10 mg MA BID PRN Constipation 08/05/22 08/05/22 magnesium hydroxide 400 mg/5 mL 30 ml PO DAILY PRN Constipation 08/05/22 08/05/22 oral suspension (Milk of Magnesia) miconazole nitrate 2 % topical 1 appl topical BEDTIME PRN skin 08/05/22 08/05/22 ointment integrity olanzapine 10 mg tablet 10 mg PO Q8H PRN agitation 08/05/22 08/05/22 Previous Rx's Medication Instructions Recorded haloperidol 5 mg tablet 5 mg PO TID #90 tabs 07/23/22 lorazepam 0.5 mg tablet (Ativan) 0.5 mg PO BID PRN anxiety #30 tabs 07/23/22 cefuroxime axetil 500 mg tablet 500 mg PO BID #10 tabs 08/07/22 prednisone 20 mg tablet 40 mg PO DAILY #10 tabs 08/07/22 Allergies Allergy/AdvReac Type Severity Reaction Status Date / Time No Known Allergies Allergy Verified 09/12/22 17:33 Review of Systems Constitutional: Constitutional: Reports as per HPI, Denies chills, Denies fatigue, Denies fever(s) and Denies headache(s) ENT: Denies headache(s) Cardiovascular: Cardiovascular: Reports chest pain and Denies dyspnea Respiratory: Respiratory: Denies cough and Denies dyspnea Gastrointestinal: Gastrointestinal: Denies abdominal pain, Denies constipation and Denies vomiting Genitourinary: Genitourinary: Denies difficulty urinating and Denies dysuria Neurologic: Denies headache(s) and Denies focal weakness Endocrine: Endocrine: Denies fatigue [facility] Past Medical History Medical History Afib Anxiety disorder CHF (congestive heart failure) Cognitive disorder COPD (chronic obstructive pulmonary disease) CVA (cerebrovascular accident) Mood disorder as late effect of traumatic brain injury Traumatic brain injury Social History Social History Household Members: Unknown / Unable to assess Housing: Other Housing Other:: retirement Unable to assess alcohol history related to: Unable to respond Alcohol intake: never Patient Tobacco Use Status: Former Tobacco user Use of substances other than those prescribed or required for medical reasons: No Substance Use Type: Unknown Advance Directives: Yes Advance Directives on File: Yes Advance Directives Date on File: 11/11/21 service: No Current occupational status: disabled Physical Exam 2 Vital Signs: Vital Signs: Last Vital Signs Temp 97.7 F 09/12/22 21:37 Pulse 70 09/12/22 21:37 Resp 15 09/12/22 21:37 BP 102/68 09/12/22 21:37 Pulse Ox 96 09/12/22 21:37 O2 Del Method Nasal Cannula 09/12/22 21:37 O2 Flow Rate 2 09/12/22 21:37 BMI result Body Mass Index 33.9 Const: General: healthy appearing, comfortable, no acute distress, alert and awake Nutritional Appearance: well nourished Orientation/consciousness: patient oriented x3 HEENT: Head: Yes normocephalic and Yes atraumatic Throat: Yes posterior oropharynx normal Eyes: Eyelids: Yes eyelids normal Conjunctivae: conjunctivae normal Sclerae: sclerae normal Corneas: corneas normal Pupils: Equal, round and reactive pupils present EOM: EOMs intact bilaterally Neck: Neck: Yes full ROM Chest: Other: Reproducible anterior chest wall tenderness the midsternal region. No crepitus Chest palpation & inspection: normal inspection of the chest Resp: Effort & Inspection: normal respiratory effort, able to speak in complete sentences, no audible wheezes and not labored Auscultation: clear to auscultation bilaterally GI: Inspection: No distended Palpation (GI): Soft to palpation, not firm, nontender, no guarding and not rigid Auscultation: normoactive bowel sounds Skin: General skin exam: no rashes or lesions noted and elasticity normal Neuro: General: patient oriented x3 Cranial nerves: Yes CN's II-XII intact bilaterally, Yes Equal, round and reactive pupils present and Yes Bilaterally intact EOM present Cognition (Neuro): normal cognition Course Reevaluation(s) Reevaluation #1: Patient's chemistry is did not show any significant abnormalities. Mental of the does not show any evidence of leukocytosis. We will get a repeat troponin to trend to ensure that there is no change. Time: 19:49 Reevaluation #2: Delta troponin negative, the patient has been resting comfortably your stay. He is stable for discharge at this time, as ACS has been ruled out Time: 22:44 Medications Administered Discontinued Medications Generic Name Dose Route Start Last Admin Trade Name Freq PRN Reason Stop Dose Admin Sodium Chloride 1,000 mls @ 999 mls/hr 09/12/22 19:00 09/12/22 21:07 Ns IV 09/12/22 20:00 Infused .Q1H1M [facility] Infusion Medical Decision Making Medical Decision Making MDM Narrative: 57-year-old male with multiple medical issues presents for evaluation of chest pain. He is from a retirement, arrives via EMS. Per EMS notes, it appears that he was treated with aspirin EN route. His EKG does not show any evidence of acute ischemia. Will check labs, chest x-ray to evaluate for cardiopulmonary cause of his chest pain. His chest pain is reproducible submitted to musculoskeletal origin. Vital signs are stable on arrival. Patient is anticoagulated, which makes PE much less likely Differential Diagnosis Chest pain Chest wall pain GERD Anxiety ACS Lab Data 09/12/22 19:10 09/12/22 19:10 Labs: Lab Results 09/12/22 09/12/22 09/12/22 Range/Units 19:10 19:10 19:10 WBC 10.5 (4.8-10.8) X10*3/uL RBC 4.62 (4.60-5.80) X10*6/uL Hgb 13.7 L (14.0-18.0) g/dl Hct 41.9 L (42.0-52.0) % MCV 90.7 (80.0-98.0) fL MCH 29.7 (27.0-33.0) pg MCHC 32.7 (31.0-36.0) g/dl RDW 14.0 (11.0-16.0) % Plt Count 226 (160-400) X10*3/uL MPV 9.8 (9.4-12.4) fL Immature Gran % (Auto) 0.5 H (0.0-0.4) % Neut % (Auto) 56.3 (45-73) % Lymph % (Auto) 36.7 (20-40) % Kidder % (Auto) 5.0 (2-11) % Eos % (Auto) 1.0 (0-4) % Baso % (Auto) 0.5 (0-2) % Lymph # (Auto) 3.9 (1.2-4.9) X10*3/uL Kidder # (Auto) 0.5 (0.1-1.2) X10*3/uL Eos # (Auto) 0.1 (0.0-0.4) X10*3/uL Baso # (Auto) 0.1 (0.0-0.2) X10*3/uL Abs Immat Gran (auto) 0.05 H (0.00-0.03) X10*3/uL Absolute Neuts (auto) 5.9 (2.0-8.3) x10*3/uL Absolute Nucleated RBC 0.000 (0.0-0.012) X10*3/uL Nucleated RBC % (auto) 0.0 (0.0-0.2) /100WBC Sodium 142 (135-145) mmol/L Potassium 3.6 (3.3-5.1) mmol/L Chloride 108 (96-108) mmol/L Carbon Dioxide 26 (22-29) mmol/L Anion Gap 12 (12-20) BUN 13 (9-16) mg/dL Creatinine 0.72 (0.5-1.4) mg/dL Estim Creat Clear Calc 150.7 Estimated GFR > 60 Random Glucose 94 (60-115) mg/dL Calcium 8.9 (8.4-10.2) mg/dL Magnesium 2.1 (1.6-2.6) mg/dL Total Bilirubin 0.7 (0.0-1.0) mg/dL AST 12 (5-37) U/L ALT 16 (0-40) U/L Alkaline Phosphatase 102 (39-117) U/L Troponin I High Sens < 2.7 (<3.5-35.0) ng/L Total Protein 5.8 L (6.5-8.0) g/dL Albumin 3.9 (3.5-5.0) g/dL COVID-19 ([facility]) (Negative) COVID-19 Clin Com 04/08/23 04/08/23 Range/Units 19:10 21:27 WBC (4.8-10.8) X10*3/uL RBC (4.60-5.80) X10*6/uL Hgb (14.0-18.0) g/dl Hct (42.0-52.0) % MCV (80.0-98.0) fL MCH (27.0-33.0) pg MCHC (31.0-36.0) g/dl RDW (11.0-16.0) % Plt Count (160-400) X10*3/uL MPV (9.4-12.4) fL Immature Gran % (Auto) (0.0-0.4) % Neut % (Auto) (45-73) % Lymph % (Auto) (20-40) % Kidder % (Auto) (2-11) % Eos % (Auto) (0-4) % Baso % (Auto) (0-2) % Lymph # (Auto) (1.2-4.9) X10*3/uL Kidder # (Auto) (0.1-1.2) X10*3/uL Eos # (Auto) (0.0-0.4) X10*3/uL Baso # (Auto) (0.0-0.2) X10*3/uL Abs Immat Gran (auto) (0.00-0.03) X10*3/uL Absolute Neuts (auto) (2.0-8.3) x10*3/uL Absolute Nucleated RBC (0.0-0.012) X10*3/uL Nucleated RBC % (auto) (0.0-0.2) /100WBC Sodium (135-145) mmol/L Potassium (3.3-5.1) mmol/L Chloride (96-108) mmol/L Carbon Dioxide (22-29) mmol/L Anion Gap (12-20) BUN (9-16) mg/dL Creatinine (0.5-1.4) mg/dL Estim Creat Clear Calc Estimated GFR Random Glucose (60-115) mg/dL Calcium (8.4-10.2) mg/dL Magnesium (1.6-2.6) mg/dL Total Bilirubin (0.0-1.0) mg/dL AST (5-37) U/L ALT (0-40) U/L Alkaline Phosphatase (39-117) U/L Troponin I High Sens < 2.7 (<3.5-35.0) ng/L Total Protein (6.5-8.0) g/dL Albumin (3.5-5.0) g/dL COVID-19 ([facility]) Negative (Negative) COVID-19 Clin Com See Note Discharge Plan Discharge Clinical Impression: Atypical chest pain Patient Disposition: Home, Self-Care Instructions: Chest Pain (ED) Additional Instructions: Your workup in the emergency department was reassuring. Take all medications as prescribed Prescriptions: No Action lorazepam [Ativan] 1 mg tablet 1 tab PO BEDTIME melatonin 5 mg capsule 2 cap PO BEDTIME mirtazapine 15 mg Tablet 15 mg PO BEDTIME atorvastatin 40 mg Tablet 40 mg PO BEDTIME gabapentin 400 mg Capsule 400 mg TID pantoprazole 40 mg Tablet,Delayed Release (Dr/Ec) 40 mg PO DAILY@1630 metoprolol tartrate 50 mg Tablet 50 mg PO BID Rx Instructions: HOLD IF SBP < 100 OR > 140 HOLD IF HR < 60 OR > 100 cetirizine 10 mg Tablet 10 mg PO DAILY docusate sodium 100 mg Capsule 100 mg PO BID furosemide 20 mg Tablet 20 mg PO DAILY PRN (Reason: fluid overload) Rx Instructions: NEEDED FOR WEIGHT GAIN > 3 POUNDS finasteride 5 mg Tablet 5 mg PO DAILY Xarelto 20 mg Tablet 20 mg PO BEDTIME Rx Instructions: must administer with evening meal midodrine 5 mg tablet 1 tab PO TIDAC azelastine 0.05 % Drops 1 drp OPHTHALMIC (EYE) Q12H PRN (Reason: Allergy Symptoms) acetaminophen 325 mg Tablet 650 mg PO TID albuterol sulfate 2.5 mg /3 mL (0.083 %) Solution For Nebulization 2.5 mg INHALATION Q8H PRN (Reason: Shortness Of Breath) polyvinyl alcohol 1.4 % Drops 1 drp OPHTHALMIC (EYE) DAILY sertraline 100 mg Tablet 100 mg PO DAILY Rx Instructions: tdd = 150 mg pseudoephedrine-guaifenesin [Mucus D] 60-600 mg Tablet Extended Release 12 Hr 1 tab PO BID PRN (Reason: Congestion) lamotrigine [Lamictal] 25 mg Tablet 25 mg PO BEDTIME Rx Instructions: tdd = 125 mg Biofreeze (menthol) 4 % Gel 1 appl TOPICAL BID Rx Instructions: apply a thin layer mid to lower back Biofreeze (menthol) 4 % Gel 1 appl TOPICAL Q2H PRN (Reason: Pain (Scale Score 1-3)) Rx Instructions: apply to mid lower back calcium carbonate 430 mg calcium (1,000 mg) Tablet,Chewable 430 mg PO Q8H PRN (Reason: Indigestion) tramadol 100 mg Tablet 100 mg PO Q6H PRN (Reason: Back Pain) furosemide 20 mg Tablet 20 mg PO DAILY Rx Instructions: HOLD FOR SBP< 100 OR > 140 HOLD IF HR < 60 OR > 100 lamotrigine [Lamictal] 100 mg Tablet 100 mg PO BEDTIME Rx Instructions: TAKE TOGETHER WITH 25 MG TAB TDD= 125 MG buspirone 15 mg tablet 1 tab PO TID budesonide-formoterol [Symbicort] 160-4.5 mcg/actuation Hfa Aerosol Inhaler 2 puff INHALATION BID baclofen 20 mg Tablet 20 mg PO BID sennosides [senna] 8.6 mg Tablet 8.6 mg PO BID Rx Instructions: HOLD FOR LOOSE BOWEL MOVEMENT Incruse Ellipta 62.5 mcg/actuation Blister With Device 1 inh INHALATION DAILY acetaminophen 325 mg Tablet 650 mg PO DAILY PRN (Reason: HEADACHE, fEVER > 100.4, BODY ACHES ) haloperidol 5 mg Tablet 5 mg PO TID Qty: 90 0RF lorazepam [Ativan] 0.5 mg tablet 0.5 mg PO BID PRN (Reason: anxiety) Qty: 30 0RF magnesium hydroxide [Milk of Magnesia] 400 mg/5 mL Suspension 30 ml PO DAILY PRN (Reason: Constipation) miconazole nitrate 2 % Ointment 1 appl TOPICAL BEDTIME PRN (Reason: skin integrity) bisacodyl 10 mg Suppository 10 mg MA BID PRN (Reason: Constipation) olanzapine 10 mg tablet 10 mg PO Q8H PRN (Reason: agitation) prednisone 20 mg Tablet 40 mg PO DAILY Qty: 10 0RF cefuroxime axetil 500 mg tablet 500 mg PO BID Qty: 10 0RF
[2022-09-12] MEDS: 0.9 % Sodium Chloride 1,000 ML 999 ML IV (19:13)
--- NOTE | 2022-09-12 19:13 | PC.NURSE ---
this rn assumed care of pt @ 1900. iv placed in FA. lab work obtained. pt medicated according to aug. pt calm and cooperative resting on stretcher
[2022-09-12 19:15] LABS: MANUAL DIFF FLAG NO
[2022-09-12 19:18] LABS: Basophils Absolute Auto 0.1 X10*3/uL (0.0-0.2); Basophils Percent Auto 0.5 % (0-2); Eosinophils Absolute Auto 0.1 X10*3/uL (0.0-0.4); Hematocrit 41.9 % (42.0-52.0); Hemoglobin 13.7 g/dl (14.0-18.0); Imm Gran Abs Auto 0.05 X10*3/uL (0.00-0.03); Imm Gran Pct Auto 0.5 % (0.0-0.4); Lymphocytes Absolute Auto 3.9 X10*3/uL (1.2-4.9); Lymphocytes Percent Auto 36.7 % (20-40); Mean Corpuscular HGB Conc 32.7 g/dl (31.0-36.0); Mean Corpuscular Hemoglobin 29.7 pg (27.0-33.0); Mean Corpuscular Volume 90.7 fL (80.0-98.0); Mean Platelet Volume 9.8 fL (9.4-12.4); Monocytes Absolute Auto 0.5 X10*3/uL (0.1-1.2); Neutrophils Absolute Auto 5.9 x10*3/uL (2.0-8.3); Neutrophils Percent Auto 56.3 % (45-73); Platelet Count 226 X10*3/uL (160-400); Red Blood Count 4.62 X10*6/uL (4.60-5.80); White Blood Count 10.5 X10*3/uL (4.8-10.8)
[2022-09-12 19:32] LABS: Alanine Aminotransferase 16 U/L (0-40); Albumin Level 3.9 g/dL (3.5-5.0); Alkaline Phosphatase 102 U/L (39-117); Anion Gap 12 (12-20); Aspartate Amino Transferase 12 U/L (5-37); Bilirubin Total 0.7 mg/dL (0.0-1.0); Blood Urea Nitrogen 13 mg/dL (9-16); Calcium 8.9 mg/dL (8.4-10.2); Carbon Dioxide 26 mmol/L (22-29); Chloride 108 mmol/L (96-108); Creatinine Clr Calc Pharmacy 150.7; Estimated Glomerular Filt Rate > 60; Glucose Random 94 mg/dL (60-115); Magnesium 2.1 mg/dL (1.6-2.6); Potassium 3.6 mmol/L (3.3-5.1); Sodium 142 mmol/L (135-145); Total Protein 5.8 g/dL (6.5-8.0)
[2022-09-12 19:33] LABS: COVID-19 Test Negative (Negative); IDNOW Serial# BCCEAD1C
[2022-09-12 19:39] LABS: Troponin-I High Sensitivity < 2.7 ng/L (<3.5-35.0)
[2022-09-12 19:53] VITALS: BP 97/69; PULSE 80; RESP 16; TEMP 36.7; O2SAT 93
--- NOTE | 2022-09-12 20:16 | PC.NURSE ---
whit bowman from pt longterm called. updated on plan to repeat troponin @ 2114. per whit bowman, will call back for further updates
--- NOTE | 2022-09-12 21:36 | PC.NURSE ---
repeat bloodwork obtained and sent down to lab. pt sleeping at this time. rise and fall of chest noted RR 15 nonlabored
[2022-09-12 21:37] VITALS: BP 102/68; PULSE 70; RESP 15; TEMP 36.5; O2SAT 96
[2022-09-12 22:04] LABS: Troponin-I High Sensitivity < 2.7 ng/L (<3.5-35.0)
--- NOTE | 2022-09-12 23:20 | PC.NURSE ---
this rn confirmed with Elsa [facility] director, [facility] address [address] [place]. this rn gave report to Elsa at this time. Maira rn coronary care unit assisting in coordinating ride back to [facility]
--- NOTE | 2022-09-12 23:22 | MHC.EDTECH ---
Call out to [facility] @[id number] spoke to Nate and booked BLS transpot back to shelter [address] [place]
[2022-09-12 23:45] VITALS: BP 98/67; PULSE 66; RESP 16; TEMP 36.6; O2SAT 95
--- NOTE | 2022-09-12 23:46 | PC.NURSE ---
rn to rn report given to whit from [facility]. ems report handoff given. iv removed prior to discharge.per whit pt wearing condom catheter from [facility] asked that we leave on. discharge provided to ems.
== END 2022-09-12 23:50 | disposition home or self-care (01) ==
PROVIDERS: Physician Assistant; Physician Assistant Medical; Emergency Provider Emergency Medicine; PCP Family Medicine
DX: R07.89 Other chest pain (principal); Z20.822 Contact with and (suspected) exposure to COVID-19; I69.354 Hemiplegia and hemiparesis following cerebral infarction affecting left non-dominant side; I48.91 Unspecified atrial fibrillation; Z96.0 Presence of urogenital implants; Z79.01 Long term (current) use of anticoagulants; Z79.02 Long term (current) use of antithrombotics/antiplatelets; Z79.899 Other long term (current) drug therapy; Z87.891 Personal history of nicotine dependence
CPT/HCPCS: 36415; 71046; 80053; 83735; 84484; 85025; 87635; 93005; 96360; 99284; 99285

== ENCOUNTER 2022-09-17 16:23 | Emergency (ER) | payer OTHER, SELFPAY ==
--- NOTE | ~2022-09-17 | XR_ITS ---
EXAMINATION: XR CHEST CLINICAL INFORMATION: Chest pain. COMPARISON: Chest radiograph dated from 09/12/2022. TECHNIQUE: Frontal view of the chest was obtained. FINDINGS: Increased patchy and streaky airspace opacities in the mid and lower lungs, more prominent on the left side. Small left-sided pleural effusion. No pneumothorax. Stable appearance of the cardiomediastinal silhouette. No displaced osseous fractures. XR/XR chest 1V IMPRESSION: Increased patchy and streaky airspace opacities in the mid and lower lungs, more prominent on the left side. Findings are indeterminate and could be related with worsening atelectasis, aspiration or pneumonia. Continued follow-up by imaging recommended to ensure resolution. Small left-sided pleural effusion.
[2022-09-17 16:35] VITALS: BP 137/88; PULSE 76; RESP 24; TEMP 37.2; O2SAT 94; BMI 30.9
--- NOTE | 2022-09-17 16:49 | ECG_ITS ---
Test Reason : CP Blood Pressure : / mmHG Vent. Rate : 076 BPM Atrial Rate : 000 BPM P-R Int : 000 ms QRS Dur : 080 ms QT Int : 408 ms P-R-T Axes : 000 010 026 degrees QTc Int : 459 ms Atrial fibrillation with premature ventricular or aberrantly conducted complexes Low voltage QRS Nonspecific ST and T wave abnormality Abnormal ECG When compared with ECG of 12-SEP-2022 17:31, Nonspecific T wave abnormality now evident in Lateral leads Referred By: Sue Mahoney Electronically Signed By:JAGDISH LIU MD
--- NOTE | 2022-09-17 16:51 | ED.GENADULT ---
HPI - General Adult General Chief complaint: General Medical Stated complaint: chest pain Time Seen by Provider: 09/17/22 16:35 Source: patient and EMS Mode of arrival: EMS Limitations: other History of Present Illness HPI narrative: Patient comes to the emergency from a retirement. According to EMS, he presents at baseline, 2 L of oxygen for COPD. Chronic hemiparesis. Patient was brought in because he complained of chest pain today. However, patient is complaining of pain all over. When patient is asked if his abdomen hurts he says yes, when patient asked if his eyebrows hurt he says yes, also asking his toenails heard, patient said yes. Patient answers yes to every question. Unfortunately, due to patient's medical condition, he is not a reliable historian. Per EMS, patient receive a dose of aspirin and nitroglycerin SL. Patient states that he started complaining of chest pain approximately around 11:00 Related Data Home Medications Medication Instructions Recorded Confirmed atorvastatin 40 mg tablet 40 mg PO BEDTIME 02/28/22 08/05/22 gabapentin 400 mg capsule 400 mg TID 02/28/22 08/05/22 lorazepam 1 mg tablet (Ativan) 1 tab PO BEDTIME 02/28/22 08/05/22 melatonin 5 mg capsule 2 cap PO BEDTIME 02/28/22 08/05/22 metoprolol tartrate 50 mg tablet 50 mg PO BID 02/28/22 08/05/22 mirtazapine 15 mg tablet 15 mg PO BEDTIME 02/28/22 08/05/22 pantoprazole 40 mg tablet,delayed 40 mg PO DAILY@1630 02/28/22 08/05/22 release cetirizine 10 mg tablet 10 mg PO DAILY 03/01/22 08/05/22 docusate sodium 100 mg capsule 100 mg PO BID 03/01/22 08/05/22 finasteride 5 mg tablet 5 mg PO DAILY 03/01/22 08/05/22 furosemide 20 mg tablet 20 mg PO DAILY PRN fluid overload 03/01/22 08/05/22 midodrine 5 mg tablet 1 tab PO TIDAC 03/01/22 08/05/22 rivaroxaban 20 mg tablet (Xarelto) 20 mg PO BEDTIME 03/01/22 08/05/22 acetaminophen 325 mg tablet 650 mg PO TID 03/28/22 08/05/22 albuterol sulfate 2.5 mg/3 mL 2.5 mg inhalation Q8H PRN 03/28/22 08/05/22 (0.083 %) solution for nebulization Shortness Of Breath azelastine 0.05 % eye drops 1 drp ophthalmic (eye) Q12H PRN 03/28/22 08/05/22 Allergy Symptoms calcium carbonate 430 mg calcium 430 mg PO Q8H PRN Indigestion 03/28/22 08/05/22 (1,000 mg) chewable tablet furosemide 20 mg tablet 20 mg PO DAILY 03/28/22 08/05/22 lamotrigine 100 mg tablet 100 mg PO BEDTIME 03/28/22 08/05/22 (Lamictal) lamotrigine 25 mg tablet (Lamictal) 25 mg PO BEDTIME 03/28/22 08/05/22 menthol 4 % topical gel (Biofreeze 1 appl topical BID 03/28/22 08/05/22 (menthol)) menthol 4 % topical gel (Biofreeze 1 appl topical Q2H PRN Pain (Scale 03/28/22 08/05/22 (menthol)) Score 1-3) polyvinyl alcohol 1.4 % eye drops 1 drp ophthalmic (eye) DAILY 03/28/22 08/05/22 pseudoephedrine-guaifenesin ER 60 1 tab PO BID PRN Congestion 03/28/22 08/05/22 mg-600 mg tablet,extend release 12hr (Mucus D) sertraline 100 mg tablet 100 mg PO DAILY 03/28/22 08/05/22 tramadol 100 mg tablet 100 mg PO Q6H PRN Back Pain 03/28/22 08/05/22 acetaminophen 325 mg tablet 650 mg PO DAILY PRN HEADACHE, 07/17/22 08/05/22 fEVER > 100.4, BODY ACHES baclofen 20 mg tablet 20 mg PO BID 07/17/22 08/05/22 budesonide-formoterol HFA 160 2 puff inhalation BID 07/17/22 08/05/22 mcg-4.5 mcg/actuation aerosol inhaler (Symbicort) buspirone 15 mg tablet 1 tab PO TID 07/17/22 08/05/22 sennosides 8.6 mg tablet (senna) 8.6 mg PO BID 07/17/22 08/05/22 umeclidinium 62.5 mcg/actuation 1 inh inhalation DAILY 07/17/22 08/05/22 blister powder for inhalation (Incruse Ellipta) bisacodyl 10 mg rectal suppository 10 mg AK BID PRN Constipation 08/05/22 08/05/22 magnesium hydroxide 400 mg/5 mL 30 ml PO DAILY PRN Constipation 08/05/22 08/05/22 oral suspension (Milk of Magnesia) miconazole nitrate 2 % topical 1 appl topical BEDTIME PRN skin 08/05/22 08/05/22 ointment integrity olanzapine 10 mg tablet 10 mg PO Q8H PRN agitation 08/05/22 08/05/22 Previous Rx's Medication Instructions Recorded haloperidol 5 mg tablet 5 mg PO TID #90 tabs 07/23/22 lorazepam 0.5 mg tablet (Ativan) 0.5 mg PO BID PRN anxiety #30 tabs 07/23/22 cefuroxime axetil 500 mg tablet 500 mg PO BID #10 tabs 08/07/22 prednisone 20 mg tablet 40 mg PO DAILY #10 tabs 08/07/22 Allergies Allergy/AdvReac Type Severity Reaction Status Date / Time No Known Allergies Allergy Verified 09/12/22 17:33 Review of Systems Review of Systems: Patient complaining of chest pain, answers yes to every question on the review of systems Yes Unobtainable due to mental condition PMFSH Past Medical History Medical History Afib Anxiety disorder CHF (congestive heart failure) Cognitive disorder COPD (chronic obstructive pulmonary disease) CVA (cerebrovascular accident) Mood disorder as late effect of traumatic brain injury Traumatic brain injury Social History Social History Household Members: Unknown / Unable to assess Housing: Other Housing Other:: retirement Unable to assess alcohol history related to: Unable to respond Alcohol intake: never Patient Tobacco Use Status: Former Tobacco user Substance Use Type: Unknown Advance Directives: Yes Advance Directives on File: Yes Advance Directives Date on File: 11/11/21 service: No Current occupational status: disabled Physical Exam ED Vital Signs: Vital Signs - 24 hr 09/17/22 16:35 Temperature 98.9 F Pulse Rate 76 Respiratory Rate 24 H Blood Pressure 137/88 Pulse Oximetry 94 Oxygen Delivery Method Nasal Cannula BMI result Body Mass Index 30.9 Const Other: Appearance: Alert. No acute distress. Eyes: Pupils equal, round and reactive to light. ENT: Pharynx normal. Neck: Normal inspection. Neck supple. No lymph nodes noted. No crepitus CVS: Irregularly irregular with controlled heart rate in the 70s. Pulses normal. Normal S1 and S2 Respiratory: No respiratory distress. Breath sounds normal. No Wheezing. No rales Abdomen: Soft and nontender. No rigidity. No distention. Skin: Skin warm and dry. Normal skin color. Normal skin turgor. Extremities: No lower extremity edema. No Lacerations. No Rash Neuro: Chronic motor deficits due to previous CVA. Psych: calm, cooperative Course Course Course Narrative: -basic labs pending -patient seems comfortable Medical Decision Making Medical Decision Making [facility] Narrative: -troponin is negative. -EKG interpreted by me, atrial flutter, heart rate controlled 76,no segment depressions or elevations, no T-wave inversion, QTC 459 -patient states that he feels back to normal, denies any pain anywhere, requesting to be discharged. Patient declined to have blood redrawn again for a 2nd set of troponin because he feels well. Differential Diagnosis Differential Diagnoses: The differential diagnosis associated with the presentation includes (ACS, anxiety) Lab Data [facility] Lab Attestation statement: I reviewed the patient's lab results. 09/17/22 17:19 09/17/22 17:19 Labs: Lab Results 09/17/22 09/17/22 09/17/22 Range/Units 17:19 17:19 17:19 WBC 9.2 (4.8-10.8) X10*3/uL RBC 4.82 (4.60-5.80) X10*6/uL Hgb 14.1 (14.0-18.0) g/dl Hct 43.2 (42.0-52.0) % MCV 89.6 (80.0-98.0) fL MCH 29.3 (27.0-33.0) pg MCHC 32.6 (31.0-36.0) g/dl RDW 14.1 (11.0-16.0) % Plt Count 209 (160-400) X10*3/uL MPV 10.0 (9.4-12.4) fL Immature Gran % (Auto) 0.4 (0.0-0.4) % Neut % (Auto) 59.9 (45-73) % Lymph % (Auto) 34.2 (20-40) % Navarro % (Auto) 4.6 (2-11) % Eos % (Auto) 0.5 (0-4) % Baso % (Auto) 0.4 (0-2) % Lymph # (Auto) 3.1 (1.2-4.9) X10*3/uL Navarro # (Auto) 0.4 (0.1-1.2) X10*3/uL Eos # (Auto) 0.1 (0.0-0.4) X10*3/uL Baso # (Auto) 0.0 (0.0-0.2) X10*3/uL Abs Immat Gran (auto) 0.04 H (0.00-0.03) X10*3/uL Absolute Neuts (auto) 5.5 (2.0-8.3) x10*3/uL Absolute Nucleated RBC 0.000 (0.0-0.012) X10*3/uL Nucleated RBC % (auto) 0.0 (0.0-0.2) /100WBC Sodium 144 (135-145) mmol/L Potassium 4.0 (3.3-5.1) mmol/L Chloride 109 H (96-108) mmol/L Carbon Dioxide 26 (22-29) mmol/L Anion Gap 13 (12-20) BUN 8 L (9-16) mg/dL Creatinine 0.77 (0.5-1.4) mg/dL Estim Creat Clear Calc 134.8 Estimated GFR > 60 Random Glucose 103 (60-115) mg/dL Calcium 9.4 (8.4-10.2) mg/dL Total Bilirubin 0.6 (0.0-1.0) mg/dL Direct Bilirubin 0.2 (0.0-0.5) mg/dL AST 14 (5-37) U/L ALT 20 (0-40) U/L Alkaline Phosphatase 109 (39-117) U/L Troponin I High Sens < 2.7 (<3.5-35.0) ng/L B-Natriuretic Peptide (<100) pg/mL Total Protein 6.4 L (6.5-8.0) g/dL Albumin 4.3 (3.5-5.0) g/dL Lipase 16 (8-78) U/L 09/17/22 Range/Units 17:19 WBC (4.8-10.8) X10*3/uL RBC (4.60-5.80) X10*6/uL Hgb (14.0-18.0) g/dl Hct (42.0-52.0) % MCV (80.0-98.0) fL MCH (27.0-33.0) pg MCHC (31.0-36.0) g/dl RDW (11.0-16.0) % Plt Count (160-400) X10*3/uL MPV (9.4-12.4) fL Immature Gran % (Auto) (0.0-0.4) % Neut % (Auto) (45-73) % Lymph % (Auto) (20-40) % Navarro % (Auto) (2-11) % Eos % (Auto) (0-4) % Baso % (Auto) (0-2) % Lymph # (Auto) (1.2-4.9) X10*3/uL Navarro # (Auto) (0.1-1.2) X10*3/uL Eos # (Auto) (0.0-0.4) X10*3/uL Baso # (Auto) (0.0-0.2) X10*3/uL Abs Immat Gran (auto) (0.00-0.03) X10*3/uL Absolute Neuts (auto) (2.0-8.3) x10*3/uL Absolute Nucleated RBC (0.0-0.012) X10*3/uL Nucleated RBC % (auto) (0.0-0.2) /100WBC Sodium (135-145) mmol/L Potassium (3.3-5.1) mmol/L Chloride (96-108) mmol/L Carbon Dioxide (22-29) mmol/L Anion Gap (12-20) BUN (9-16) mg/dL Creatinine (0.5-1.4) mg/dL Estim Creat Clear Calc Estimated GFR Random Glucose (60-115) mg/dL Calcium (8.4-10.2) mg/dL Total Bilirubin (0.0-1.0) mg/dL Direct Bilirubin (0.0-0.5) mg/dL AST (5-37) U/L ALT (0-40) U/L Alkaline Phosphatase (39-117) U/L Troponin I High Sens (<3.5-35.0) ng/L B-Natriuretic Peptide 28 (<100) pg/mL Total Protein (6.5-8.0) g/dL Albumin (3.5-5.0) g/dL Lipase (8-78) U/L Discharge Plan Discharge Clinical Impression: Atypical chest pain Patient Disposition: Home, Self-Care Instructions: Chest Pain (ED) Additional Instructions: Please follow-up with your primary care physician tomorrow. If you have any worsening or new symptoms, please return to the emergency room or call 911 Prescriptions: No Action lorazepam [Ativan] 1 mg tablet 1 tab PO BEDTIME melatonin 5 mg capsule 2 cap PO BEDTIME mirtazapine 15 mg Tablet 15 mg PO BEDTIME atorvastatin 40 mg Tablet 40 mg PO BEDTIME gabapentin 400 mg Capsule 400 mg TID pantoprazole 40 mg Tablet,Delayed Release (Dr/Ec) 40 mg PO DAILY@1630 metoprolol tartrate 50 mg Tablet 50 mg PO BID Rx Instructions: HOLD IF SBP < 100 OR > 140 HOLD IF HR < 60 OR > 100 cetirizine 10 mg Tablet 10 mg PO DAILY docusate sodium 100 mg Capsule 100 mg PO BID furosemide 20 mg Tablet 20 mg PO DAILY PRN (Reason: fluid overload) Rx Instructions: NEEDED FOR WEIGHT GAIN > 3 POUNDS finasteride 5 mg Tablet 5 mg PO DAILY Xarelto 20 mg Tablet 20 mg PO BEDTIME Rx Instructions: must administer with evening meal midodrine 5 mg tablet 1 tab PO TIDAC azelastine 0.05 % Drops 1 drp OPHTHALMIC (EYE) Q12H PRN (Reason: Allergy Symptoms) acetaminophen 325 mg Tablet 650 mg PO TID albuterol sulfate 2.5 mg /3 mL (0.083 %) Solution For Nebulization 2.5 mg INHALATION Q8H PRN (Reason: Shortness Of Breath) polyvinyl alcohol 1.4 % Drops 1 drp OPHTHALMIC (EYE) DAILY sertraline 100 mg Tablet 100 mg PO DAILY Rx Instructions: tdd = 150 mg pseudoephedrine-guaifenesin [Mucus D] 60-600 mg Tablet Extended Release 12 Hr 1 tab PO BID PRN (Reason: Congestion) lamotrigine [Lamictal] 25 mg Tablet 25 mg PO BEDTIME Rx Instructions: tdd = 125 mg Biofreeze (menthol) 4 % Gel 1 appl TOPICAL BID Rx Instructions: apply a thin layer mid to lower back Biofreeze (menthol) 4 % Gel 1 appl TOPICAL Q2H PRN (Reason: Pain (Scale Score 1-3)) Rx Instructions: apply to mid lower back calcium carbonate 430 mg calcium (1,000 mg) Tablet,Chewable 430 mg PO Q8H PRN (Reason: Indigestion) tramadol 100 mg Tablet 100 mg PO Q6H PRN (Reason: Back Pain) furosemide 20 mg Tablet 20 mg PO DAILY Rx Instructions: HOLD FOR SBP< 100 OR > 140 HOLD IF HR < 60 OR > 100 lamotrigine [Lamictal] 100 mg Tablet 100 mg PO BEDTIME Rx Instructions: TAKE TOGETHER WITH 25 MG TAB TDD= 125 MG buspirone 15 mg tablet 1 tab PO TID budesonide-formoterol [Symbicort] 160-4.5 mcg/actuation Hfa Aerosol Inhaler 2 puff INHALATION BID baclofen 20 mg Tablet 20 mg PO BID sennosides [senna] 8.6 mg Tablet 8.6 mg PO BID Rx Instructions: HOLD FOR LOOSE BOWEL MOVEMENT Incruse Ellipta 62.5 mcg/actuation Blister With Device 1 inh INHALATION DAILY acetaminophen 325 mg Tablet 650 mg PO DAILY PRN (Reason: HEADACHE, fEVER > 100.4, BODY ACHES ) haloperidol 5 mg Tablet 5 mg PO TID Qty: 90 0RF lorazepam [Ativan] 0.5 mg tablet 0.5 mg PO BID PRN (Reason: anxiety) Qty: 30 0RF magnesium hydroxide [Milk of Magnesia] 400 mg/5 mL Suspension 30 ml PO DAILY PRN (Reason: Constipation) miconazole nitrate 2 % Ointment 1 appl TOPICAL BEDTIME PRN (Reason: skin integrity) bisacodyl 10 mg Suppository 10 mg AK BID PRN (Reason: Constipation) olanzapine 10 mg tablet 10 mg PO Q8H PRN (Reason: agitation) prednisone 20 mg Tablet 40 mg PO DAILY Qty: 10 0RF cefuroxime axetil 500 mg tablet 500 mg PO BID Qty: 10 0RF
[2022-09-17 17:23] LABS: MANUAL DIFF FLAG NO
[2022-09-17 17:30] LABS: Basophils Percent Auto 0.4 % (0-2); Eosinophils Absolute Auto 0.1 X10*3/uL (0.0-0.4); Eosinophils Percent Auto 0.5 % (0-4); Hematocrit 43.2 % (42.0-52.0); Hemoglobin 14.1 g/dl (14.0-18.0); Imm Gran Abs Auto 0.04 X10*3/uL (0.00-0.03); Imm Gran Pct Auto 0.4 % (0.0-0.4); Lymphocytes Absolute Auto 3.1 X10*3/uL (1.2-4.9); Lymphocytes Percent Auto 34.2 % (20-40); Mean Corpuscular HGB Conc 32.6 g/dl (31.0-36.0); Mean Corpuscular Hemoglobin 29.3 pg (27.0-33.0); Mean Corpuscular Volume 89.6 fL (80.0-98.0); Monocytes Absolute Auto 0.4 X10*3/uL (0.1-1.2); Monocytes Percent Auto 4.6 % (2-11); Neutrophils Absolute Auto 5.5 x10*3/uL (2.0-8.3); Neutrophils Percent Auto 59.9 % (45-73); Platelet Count 209 X10*3/uL (160-400); Red Blood Count 4.82 X10*6/uL (4.60-5.80); Red Cell Distribution Width 14.1 % (11.0-16.0); White Blood Count 9.2 X10*3/uL (4.8-10.8)
[2022-09-17 17:54] LABS: Alanine Aminotransferase 20 U/L (0-40); Albumin Level 4.3 g/dL (3.5-5.0); Alkaline Phosphatase 109 U/L (39-117); Anion Gap 13 (12-20); Aspartate Amino Transferase 14 U/L (5-37); Bilirubin Direct 0.2 mg/dL (0.0-0.5); Bilirubin Total 0.6 mg/dL (0.0-1.0); Blood Urea Nitrogen 8 mg/dL (9-16); Calcium 9.4 mg/dL (8.4-10.2); Carbon Dioxide 26 mmol/L (22-29); Chloride 109 mmol/L (96-108); Creatinine Clr Calc Pharmacy 134.8; Estimated Glomerular Filt Rate > 60; Glucose Random 103 mg/dL (60-115); Lipase 16 U/L (8-78); Sodium 144 mmol/L (135-145); Total Protein 6.4 g/dL (6.5-8.0)
[2022-09-17 17:58] LABS: B Type Natriuretic Peptide 28 pg/mL (<100)
[2022-09-17 18:06] LABS: Troponin-I High Sensitivity < 2.7 ng/L (<3.5-35.0)
--- NOTE | 2022-09-17 19:04 | PC.NURSE ---
Report received from Esther PALMER. Pt awaiting transport back to facility.
[2022-09-17 19:17] VITALS: BP 129/84; PULSE 85; RESP 20; O2SAT 96
--- NOTE | 2022-09-17 19:33 | PC.NURSE ---
Report to Elsa at [facility]ts [facility]. She denies any further questions. Pt agreeable to go back to facility at this time.
== END 2022-09-17 20:05 | disposition home or self-care (01) ==
PROVIDERS: Emergency Provider Emergency Medicine; PCP Family Medicine
DX: R07.89 Other chest pain (principal); R06.02 Shortness of breath; Z79.899 Other long term (current) drug therapy
CPT/HCPCS: 36415; 71045; 80048; 80076; 83690; 83880; 84484; 85025; 93005; 99283; 99284

== ENCOUNTER 2022-09-24 16:22 | Emergency (ER) | payer OTHER, SELFPAY ==
--- NOTE | ~2022-09-24 | XR_ITS ---
EXAMINATION: XR CHEST CLINICAL INFORMATION: Chest pain COMPARISON: 09/17/2022 TECHNIQUE: Frontal view of the chest was obtained. FINDINGS: Lung volumes are low. Patchy opacities at the left mid to lower lung appearing increased from prior. Mild bronchial wall thickening present. No pneumothorax. There may be a small left pleural effusion. The cardiomediastinal silhouette is unchanged. XR/XR chest 1V IMPRESSION: Bronchial wall thickening can be seen with a small airways process such as asthma or atypical/viral infection. Increased patchy opacities at the left mid to lower lung could represent superimposed atelectasis or pneumonia.
--- NOTE | 2022-09-24 16:30 | ECG_ITS ---
Test Reason : CHEST PAIN Blood Pressure : / mmHG Vent. Rate : 077 BPM Atrial Rate : 000 BPM P-R Int : 000 ms QRS Dur : 082 ms QT Int : 380 ms P-R-T Axes : 000 -01 079 degrees QTc Int : 430 ms Atrial fibrillation Nonspecific T wave abnormality Abnormal ECG When compared with ECG of 17-SEP-2022 17:12, No significant changes seen Referred By: Sue Mahoney Electronically Signed By:JOSEY MESSER
[2022-09-24 16:31] VITALS: BP 100/62; PULSE 86; PULSE 88; RESP 16; TEMP 37; O2SAT 94; BMI 33.5
--- NOTE | 2022-09-24 16:32 | ED.CHESTPAIN ---
HPI - Chest Pain General Chief Complaint: General Medical Stated Complaint: chest pain Time Seen by Provider: 09/24/22 16:23 Source: patient and EMS Mode of arrival: EMS History of Present Illness HPI narrative: Patient comes to the ED c/o chest pain that started 4 hours ago. Pt has hx of CVA, CHF, COPD on 2L, TBI. Patient states that approximately 4 hours ago, patient was at home, started having chest pain. Also, patient has pain all over the body. Of note, patient has been evaluated for atypical chest pain 4 times on this month. Patient comes in complaining of chest pain, patient is poor historian. Then he gets tired of waiting for results or 2nd troponin and requests to be discharged. This presentation is similar to previous ED visits. EKG per EMS unremarkable, AFib at baseline. Per EMS, patient declined aspirin/nitro Related Data Home Medications Medication Instructions Recorded Confirmed atorvastatin 40 mg tablet 40 mg PO BEDTIME 02/28/22 08/05/22 gabapentin 400 mg capsule 400 mg TID 02/28/22 08/05/22 lorazepam 1 mg tablet (Ativan) 1 tab PO BEDTIME 02/28/22 08/05/22 melatonin 5 mg capsule 2 cap PO BEDTIME 02/28/22 08/05/22 metoprolol tartrate 50 mg tablet 50 mg PO BID 02/28/22 08/05/22 mirtazapine 15 mg tablet 15 mg PO BEDTIME 02/28/22 08/05/22 pantoprazole 40 mg tablet,delayed 40 mg PO DAILY@1630 02/28/22 08/05/22 release cetirizine 10 mg tablet 10 mg PO DAILY 03/01/22 08/05/22 docusate sodium 100 mg capsule 100 mg PO BID 03/01/22 08/05/22 finasteride 5 mg tablet 5 mg PO DAILY 03/01/22 08/05/22 furosemide 20 mg tablet 20 mg PO DAILY PRN fluid overload 03/01/22 08/05/22 midodrine 5 mg tablet 1 tab PO TIDAC 03/01/22 08/05/22 rivaroxaban 20 mg tablet (Xarelto) 20 mg PO BEDTIME 03/01/22 08/05/22 acetaminophen 325 mg tablet 650 mg PO TID 03/28/22 08/05/22 albuterol sulfate 2.5 mg/3 mL 2.5 mg inhalation Q8H PRN 03/28/22 08/05/22 (0.083 %) solution for nebulization Shortness Of Breath azelastine 0.05 % eye drops 1 drp ophthalmic (eye) Q12H PRN 03/28/22 08/05/22 Allergy Symptoms calcium carbonate 430 mg calcium 430 mg PO Q8H PRN Indigestion 03/28/22 08/05/22 (1,000 mg) chewable tablet furosemide 20 mg tablet 20 mg PO DAILY 03/28/22 08/05/22 lamotrigine 100 mg tablet 100 mg PO BEDTIME 03/28/22 08/05/22 (Lamictal) lamotrigine 25 mg tablet (Lamictal) 25 mg PO BEDTIME 03/28/22 08/05/22 menthol 4 % topical gel (Biofreeze 1 appl topical BID 03/28/22 08/05/22 (menthol)) menthol 4 % topical gel (Biofreeze 1 appl topical Q2H PRN Pain (Scale 03/28/22 08/05/22 (menthol)) Score 1-3) polyvinyl alcohol 1.4 % eye drops 1 drp ophthalmic (eye) DAILY 03/28/22 08/05/22 pseudoephedrine-guaifenesin ER 60 1 tab PO BID PRN Congestion 03/28/22 08/05/22 mg-600 mg tablet,extend release 12hr (Mucus D) sertraline 100 mg tablet 100 mg PO DAILY 03/28/22 08/05/22 tramadol 100 mg tablet 100 mg PO Q6H PRN Back Pain 03/28/22 08/05/22 acetaminophen 325 mg tablet 650 mg PO DAILY PRN HEADACHE, 07/17/22 08/05/22 fEVER > 100.4, BODY ACHES baclofen 20 mg tablet 20 mg PO BID 07/17/22 08/05/22 budesonide-formoterol HFA 160 2 puff inhalation BID 07/17/22 08/05/22 mcg-4.5 mcg/actuation aerosol inhaler (Symbicort) buspirone 15 mg tablet 1 tab PO TID 07/17/22 08/05/22 sennosides 8.6 mg tablet (senna) 8.6 mg PO BID 07/17/22 08/05/22 umeclidinium 62.5 mcg/actuation 1 inh inhalation DAILY 07/17/22 08/05/22 blister powder for inhalation (Incruse Ellipta) bisacodyl 10 mg rectal suppository 10 mg IN BID PRN Constipation 08/05/22 08/05/22 magnesium hydroxide 400 mg/5 mL 30 ml PO DAILY PRN Constipation 08/05/22 08/05/22 oral suspension (Milk of Magnesia) miconazole nitrate 2 % topical 1 appl topical BEDTIME PRN skin 08/05/22 08/05/22 ointment integrity olanzapine 10 mg tablet 10 mg PO Q8H PRN agitation 08/05/22 08/05/22 Previous Rx's Medication Instructions Recorded haloperidol 5 mg tablet 5 mg PO TID #90 tabs 07/23/22 lorazepam 0.5 mg tablet (Ativan) 0.5 mg PO BID PRN anxiety #30 tabs 07/23/22 cefuroxime axetil 500 mg tablet 500 mg PO BID #10 tabs 08/07/22 prednisone 20 mg tablet 40 mg PO DAILY #10 tabs 08/07/22 Allergies Allergy/AdvReac Type Severity Reaction Status Date / Time No Known Allergies Allergy Verified 09/12/22 17:33 Review of Systems Review of Systems: Patient complaining of chest pain, patient is poor historian. Review of systems is positive for every question that was asked to the patient. Yes Other (Poor historian) [facility] Past Medical History Medical History Afib Anxiety disorder CHF (congestive heart failure) Cognitive disorder COPD (chronic obstructive pulmonary disease) CVA (cerebrovascular accident) Mood disorder as late effect of traumatic brain injury Traumatic brain injury Social History Social History Household Members: Unknown / Unable to assess Housing: Other Housing Other:: snf Unable to assess alcohol history related to: Unable to respond Alcohol intake: never Patient Tobacco Use Status: Former Tobacco user Smoked in Last 30 Days: No Substance Use Type: Unknown Advance Directives: Yes Advance Directives on File: Yes Advance Directives Date on File: 11/11/21 service: No Current occupational status: disabled Physical Exam Vital Signs: Vital Signs: Last Vital Signs Temp 98.3 F 09/24/22 18:00 Pulse 62 09/24/22 18:00 Resp 16 09/24/22 18:00 BP 97/56 L 09/24/22 18:00 Pulse Ox 94 09/24/22 18:00 O2 Del Method Nasal Cannula 09/24/22 16:31 O2 Flow Rate 1 09/24/22 18:00 Oxygen Flow Rate 2 09/24/22 16:31 BMI result Body Mass Index 33.5 Const: Other: Appearance: Alert. Oriented X3. No acute distress. Eyes: Pupils equal, round and reactive to light. ENT: Pharynx normal. Neck: Normal inspection. Neck supple. No lymph nodes noted. No crepitus CVS: Normal heart rate and rhythm. Pulses normal. Normal S1 and S2 Respiratory: No respiratory distress. Breath sounds normal. No Wheezing. No rales Abdomen: Soft and nontender. No rigidity. No distention. Skin: Skin warm and dry. Normal skin color. Normal skin turgor. Extremities: No lower extremity edema. No Lacerations. No Rash Neuro: Oriented X 3. No motor deficit. No sensory deficit. Moving all extremities. No slurred speech. CN 2 through 12 grossly intact Psych: calm, cooperative, normal affect Course Course Course Narrative: -EKG and labs pending. -patient has multiple visits for atypical chest pain. Unlikely to be of cardiac etiology. Also, patient answered yes to every question of the review of systems, unfortunately, patient is poor historian. Patient looks very comfortable, no acute distress. Medical Decision Making Medical Decision Making [facility] Narrative: -EKG my interpretation: Heart rate 77, atrial fibrillation, no ST segment depression or elevation, no T-wave inversion, QTC 430 -troponin 1. Is negative -patient states that he has had chest pain for less than 6 hours. I discussed with the patient that ideally we should repeat a troponin 3 hours from the original. Patient declined. Patient states that he feels better, has no pain and would like to be discharged -chest x-ray shows possible atelectasis versus pneumonia. Patient has no cough, white blood cell count normal, normal vitals. This is likely atelectasis. Antibiotics not indicated. Differential Diagnosis Differential Diagnoses: The differential diagnosis associated with the presentation includes (Atypical chest pain, anxiety, ACS) Lab Data [facility] Lab Attestation statement: I reviewed the patient's lab results. 09/24/22 16:38 04/20/23 16:38 Labs: Lab Results 09/24/22 09/24/22 09/24/22 Range/Units 16:38 16:38 16:38 WBC 8.1 (4.8-10.8) X10*3/uL RBC 4.17 L (4.60-5.80) X10*6/uL Hgb 12.5 L (14.0-18.0) g/dl Hct 38.3 L (42.0-52.0) % MCV 91.8 (80.0-98.0) fL MCH 30.0 (27.0-33.0) pg MCHC 32.6 (31.0-36.0) g/dl RDW 14.2 (11.0-16.0) % Plt Count 217 (160-400) X10*3/uL MPV 10.0 (9.4-12.4) fL Immature Gran % (Auto) 0.7 H (0.0-0.4) % Neut % (Auto) 54.4 (45-73) % Lymph % (Auto) 37.1 (20-40) % [place] % (Auto) 5.9 (2-11) % Eos % (Auto) 1.0 (0-4) % Baso % (Auto) 0.9 (0-2) % Lymph # (Auto) 3.0 (1.2-4.9) X10*3/uL [place] # (Auto) 0.5 (0.1-1.2) X10*3/uL Eos # (Auto) 0.1 (0.0-0.4) X10*3/uL Baso # (Auto) 0.1 (0.0-0.2) X10*3/uL Abs Immat Gran (auto) 0.06 H (0.00-0.03) X10*3/uL Absolute Neuts (auto) 4.4 (2.0-8.3) x10*3/uL Absolute Nucleated RBC 0.000 (0.0-0.012) X10*3/uL Nucleated RBC % (auto) 0.0 (0.0-0.2) /100WBC Sodium 145 (135-145) mmol/L Potassium 3.7 (3.3-5.1) mmol/L Chloride 106 (96-108) mmol/L Carbon Dioxide 26 (22-29) mmol/L Anion Gap 17 (12-20) BUN 7 L (9-16) mg/dL Creatinine 0.79 (0.5-1.4) mg/dL Estim Creat Clear Calc 132.5 Estimated GFR > 60 Random Glucose 107 (60-115) mg/dL Calcium 9.2 (8.4-10.2) mg/dL Total Bilirubin 0.7 (0.0-1.0) mg/dL Direct Bilirubin 0.2 (0.0-0.5) mg/dL AST 15 (5-37) U/L ALT 23 (0-40) U/L Alkaline Phosphatase 137 H (39-117) U/L Troponin I High Sens < 2.7 (<3.5-35.0) ng/L Total Protein 6.4 L (6.5-8.0) g/dL Albumin 4.2 (3.5-5.0) g/dL Discharge Plan Discharge Clinical Impression: Atypical chest pain Patient Disposition: Home, Self-Care Instructions: Chest Pain (ED) Additional Instructions: Please follow-up with your primary care physician tomorrow. If you have any worsening or new symptoms, please return to the emergency room or call 911 Prescriptions: No Action lorazepam [Ativan] 1 mg tablet 1 tab PO BEDTIME melatonin 5 mg capsule 2 cap PO BEDTIME mirtazapine 15 mg Tablet 15 mg PO BEDTIME atorvastatin 40 mg Tablet 40 mg PO BEDTIME gabapentin 400 mg Capsule 400 mg TID pantoprazole 40 mg Tablet,Delayed Release (Dr/Ec) 40 mg PO DAILY@1630 metoprolol tartrate 50 mg Tablet 50 mg PO BID Rx Instructions: HOLD IF SBP < 100 OR > 140 HOLD IF HR < 60 OR > 100 cetirizine 10 mg Tablet 10 mg PO DAILY docusate sodium 100 mg Capsule 100 mg PO BID furosemide 20 mg Tablet 20 mg PO DAILY PRN (Reason: fluid overload) Rx Instructions: NEEDED FOR WEIGHT GAIN > 3 POUNDS finasteride 5 mg Tablet 5 mg PO DAILY Xarelto 20 mg Tablet 20 mg PO BEDTIME Rx Instructions: must administer with evening meal midodrine 5 mg tablet 1 tab PO TIDAC azelastine 0.05 % Drops 1 drp OPHTHALMIC (EYE) Q12H PRN (Reason: Allergy Symptoms) acetaminophen 325 mg Tablet 650 mg PO TID albuterol sulfate 2.5 mg /3 mL (0.083 %) Solution For Nebulization 2.5 mg INHALATION Q8H PRN (Reason: Shortness Of Breath) polyvinyl alcohol 1.4 % Drops 1 drp OPHTHALMIC (EYE) DAILY sertraline 100 mg Tablet 100 mg PO DAILY Rx Instructions: tdd = 150 mg pseudoephedrine-guaifenesin [Mucus D] 60-600 mg Tablet Extended Release 12 Hr 1 tab PO BID PRN (Reason: Congestion) lamotrigine [Lamictal] 25 mg Tablet 25 mg PO BEDTIME Rx Instructions: tdd = 125 mg Biofreeze (menthol) 4 % Gel 1 appl TOPICAL BID Rx Instructions: apply a thin layer mid to lower back Biofreeze (menthol) 4 % Gel 1 appl TOPICAL Q2H PRN (Reason: Pain (Scale Score 1-3)) Rx Instructions: apply to mid lower back calcium carbonate 430 mg calcium (1,000 mg) Tablet,Chewable 430 mg PO Q8H PRN (Reason: Indigestion) tramadol 100 mg Tablet 100 mg PO Q6H PRN (Reason: Back Pain) furosemide 20 mg Tablet 20 mg PO DAILY Rx Instructions: HOLD FOR SBP< 100 OR > 140 HOLD IF HR < 60 OR > 100 lamotrigine [Lamictal] 100 mg Tablet 100 mg PO BEDTIME Rx Instructions: TAKE TOGETHER WITH 25 MG TAB TDD= 125 MG buspirone 15 mg tablet 1 tab PO TID budesonide-formoterol [Symbicort] 160-4.5 mcg/actuation Hfa Aerosol Inhaler 2 puff INHALATION BID baclofen 20 mg Tablet 20 mg PO BID sennosides [senna] 8.6 mg Tablet 8.6 mg PO BID Rx Instructions: HOLD FOR LOOSE BOWEL MOVEMENT Incruse Ellipta 62.5 mcg/actuation Blister With Device 1 inh INHALATION DAILY acetaminophen 325 mg Tablet 650 mg PO DAILY PRN (Reason: HEADACHE, fEVER > 100.4, BODY ACHES ) haloperidol 5 mg Tablet 5 mg PO TID Qty: 90 0RF lorazepam [Ativan] 0.5 mg tablet 0.5 mg PO BID PRN (Reason: anxiety) Qty: 30 0RF magnesium hydroxide [Milk of Magnesia] 400 mg/5 mL Suspension 30 ml PO DAILY PRN (Reason: Constipation) miconazole nitrate 2 % Ointment 1 appl TOPICAL BEDTIME PRN (Reason: skin integrity) bisacodyl 10 mg Suppository 10 mg IN BID PRN (Reason: Constipation) olanzapine 10 mg tablet 10 mg PO Q8H PRN (Reason: agitation) prednisone 20 mg Tablet 40 mg PO DAILY Qty: 10 0RF cefuroxime axetil 500 mg tablet 500 mg PO BID Qty: 10 0RF
[2022-09-24 16:41] LABS: MANUAL DIFF FLAG NO
[2022-09-24 16:46] LABS: Basophils Absolute Auto 0.1 X10*3/uL (0.0-0.2); Basophils Percent Auto 0.9 % (0-2); Eosinophils Absolute Auto 0.1 X10*3/uL (0.0-0.4); Hematocrit 38.3 % (42.0-52.0); Hemoglobin 12.5 g/dl (14.0-18.0); Imm Gran Abs Auto 0.06 X10*3/uL (0.00-0.03); Imm Gran Pct Auto 0.7 % (0.0-0.4); Lymphocytes Percent Auto 37.1 % (20-40); Mean Corpuscular HGB Conc 32.6 g/dl (31.0-36.0); Mean Corpuscular Volume 91.8 fL (80.0-98.0); Monocytes Absolute Auto 0.5 X10*3/uL (0.1-1.2); Monocytes Percent Auto 5.9 % (2-11); Neutrophils Absolute Auto 4.4 x10*3/uL (2.0-8.3); Neutrophils Percent Auto 54.4 % (45-73); Platelet Count 217 X10*3/uL (160-400); Red Blood Count 4.17 X10*6/uL (4.60-5.80); Red Cell Distribution Width 14.2 % (11.0-16.0); White Blood Count 8.1 X10*3/uL (4.8-10.8)
[2022-09-24 17:00] LABS: Alanine Aminotransferase 23 U/L (0-40); Albumin Level 4.2 g/dL (3.5-5.0); Alkaline Phosphatase 137 U/L (39-117); Anion Gap 17 (12-20); Aspartate Amino Transferase 15 U/L (5-37); Bilirubin Direct 0.2 mg/dL (0.0-0.5); Bilirubin Total 0.7 mg/dL (0.0-1.0); Blood Urea Nitrogen 7 mg/dL (9-16); Calcium 9.2 mg/dL (8.4-10.2); Carbon Dioxide 26 mmol/L (22-29); Chloride 106 mmol/L (96-108); Creatinine Clr Calc Pharmacy 132.5; Estimated Glomerular Filt Rate > 60; Glucose Random 107 mg/dL (60-115); Potassium 3.7 mmol/L (3.3-5.1); Sodium 145 mmol/L (135-145); Total Protein 6.4 g/dL (6.5-8.0)
--- NOTE | 2022-09-24 17:06 | PC.NURSE ---
Pt cleaned and linen changed over, placed on lunchroom monitor. [place] cath applied, labs/ekg obtained. Call rush within reach.
[2022-09-24 17:16] LABS: Troponin-I High Sensitivity < 2.7 ng/L (<3.5-35.0)
[2022-09-24 18:00] VITALS: BP 97/56; PULSE 62; RESP 16; TEMP 36.8; O2SAT 94
[2022-09-24 19:45] VITALS: BP 105/61; PULSE 82; RESP 16; TEMP 36.3; O2SAT 94
--- NOTE | 2022-09-24 19:46 | MHC.EDTECH ---
pt was given dinner ate 100 % drank 360 ml fluidas .
--- NOTE | 2022-09-24 19:49 | PC.NURSE ---
Spoke with Elsa at pts group and notified her of pts discharge. Pt awaiting ambulance transport.
[2022-09-24 19:55] LABS: INTERNATIONAL NORM RATIO 1.3 (0.9-1.1); Prothrombin Time 14.7 SEC (10.0-13.1)
== END 2022-09-24 20:11 | disposition home or self-care (01) ==
PROVIDERS: Emergency Provider Emergency Medicine; PCP Family Medicine
DX: R07.89 Other chest pain (principal); J44.9 Chronic obstructive pulmonary disease, unspecified; I48.91 Unspecified atrial fibrillation; Z86.73 Personal history of transient ischemic attack (TIA), and cerebral infarction without residual deficits; Z99.81 Dependence on supplemental oxygen; Z79.02 Long term (current) use of antithrombotics/antiplatelets; Z79.899 Other long term (current) drug therapy; Z79.01 Long term (current) use of anticoagulants
CPT/HCPCS: 36415; 71045; 80048; 80076; 84484; 85025; 85610; 93005; 99283; 99285

== ENCOUNTER 2022-09-25 15:40 | Emergency (ER) | payer OTHER, SELFPAY ==
--- NOTE | 2022-09-25 | ECG_ITS ---
Test Reason : CHEST PAIN Blood Pressure : / mmHG Vent. Rate : 080 BPM Atrial Rate : 000 BPM P-R Int : 000 ms QRS Dur : 080 ms QT Int : 380 ms P-R-T Axes : 000 007 047 degrees QTc Int : 438 ms Atrial fibrillation Low voltage QRS Abnormal ECG When compared with ECG of 24-SEP-2022 17:00, No significant change was found Referred By: Generic ED Physician Electronically Signed By:JOSEY MESSER
--- NOTE | ~2022-09-25 | XR_ITS ---
EXAMINATION: XR chest 1V, XR KUB CLINICAL INFORMATION: Chest pain. Constipation. COMPARISON: 09/24/2022 TECHNIQUE: AP upright view of the chest. One view, 3 images of the abdomen. FINDINGS: Chest: Low lung volumes. Central vascular prominence without overt edema. Hazy opacity at the periphery of the left midlung is similar to prior. No pleural effusion or pneumothorax. The cardiomediastinal silhouette remains prominent. ABDOMEN: Nonobstructive bowel gas pattern. No dilated loops of bowel. Gas throughout the colon. No abnormal colonic stool burden. XR/XR KUB IMPRESSION: 1. Central vascular prominence without overt edema. Hazy opacity at the periphery of the left midlung is similar to prior. 2. Nonobstructive bowel gas pattern. No abnormal colonic stool burden.
--- NOTE | ~2022-09-25 | XR_ITS ---
EXAMINATION: XR chest 1V, XR KUB CLINICAL INFORMATION: Chest pain. Constipation. COMPARISON: 09/24/2022 TECHNIQUE: AP upright view of the chest. One view, 3 images of the abdomen. FINDINGS: Chest: Low lung volumes. Central vascular prominence without overt edema. Hazy opacity at the periphery of the left midlung is similar to prior. No pleural effusion or pneumothorax. The cardiomediastinal silhouette remains prominent. ABDOMEN: Nonobstructive bowel gas pattern. No dilated loops of bowel. Gas throughout the colon. No abnormal colonic stool burden. XR/XR chest 1V IMPRESSION: 1. Central vascular prominence without overt edema. Hazy opacity at the periphery of the left midlung is similar to prior. 2. Nonobstructive bowel gas pattern. No abnormal colonic stool burden.
[2022-09-25 15:53] VITALS: BP 112/82; BP 114/86; PULSE 74; PULSE 81; RESP 24; TEMP 37.1; O2SAT 97; BMI 33.0
[2022-09-25 16:08] LABS: MANUAL DIFF FLAG NO
[2022-09-25 16:12] LABS: Basophils Absolute Auto 0.1 X10*3/uL (0.0-0.2); Eosinophils Absolute Auto 0.1 X10*3/uL (0.0-0.4); Eosinophils Percent Auto 1.2 % (0-4); Hematocrit 32.1 % (42.0-52.0); Hemoglobin 10.5 g/dl (14.0-18.0); Imm Gran Abs Auto 0.05 X10*3/uL (0.00-0.03); Imm Gran Pct Auto 0.7 % (0.0-0.4); Lymphocytes Absolute Auto 2.9 X10*3/uL (1.2-4.9); Lymphocytes Percent Auto 39.9 % (20-40); Mean Corpuscular HGB Conc 32.7 g/dl (31.0-36.0); Mean Corpuscular Hemoglobin 29.8 pg (27.0-33.0); Mean Corpuscular Volume 91.2 fL (80.0-98.0); Monocytes Absolute Auto 0.4 X10*3/uL (0.1-1.2); Monocytes Percent Auto 6.1 % (2-11); Neutrophils Absolute Auto 3.7 x10*3/uL (2.0-8.3); Neutrophils Percent Auto 51.1 % (45-73); Platelet Count 181 X10*3/uL (160-400); Red Blood Count 3.52 X10*6/uL (4.60-5.80); Red Cell Distribution Width 14.3 % (11.0-16.0); White Blood Count 7.2 X10*3/uL (4.8-10.8)
--- NOTE | 2022-09-25 16:17 | ED_ITS ---
HPI - General Adult General Chief complaint: General Medical Stated complaint: Chest Pain Time Seen by Provider: 09/25/22 16:08 Source: patient Mode of arrival: ambulatory Limitations: no limitations History of Present Illness HPI narrative: Patient comes to the emergency room from a half-way via EMS. Patient comes emergency room complaining of chest pain that started between 13:00 and 14:00. Patient is well-known to our service. Patient usually starts complaining of chest pain at 13:00 or 14:00 At this time, patient states that he feels well, no chest pain. Patient states that he feels constipated. Denies abdominal pain, no nausea vomiting or diarrhea Related Data Home Medications Medication Instructions Recorded Confirmed atorvastatin 40 mg tablet 40 mg PO BEDTIME 02/28/22 08/05/22 gabapentin 400 mg capsule 400 mg TID 02/28/22 08/05/22 lorazepam 1 mg tablet (Ativan) 1 tab PO BEDTIME 02/28/22 08/05/22 melatonin 5 mg capsule 2 cap PO BEDTIME 02/28/22 08/05/22 metoprolol tartrate 50 mg tablet 50 mg PO BID 02/28/22 08/05/22 mirtazapine 15 mg tablet 15 mg PO BEDTIME 02/28/22 08/05/22 pantoprazole 40 mg tablet,delayed 40 mg PO DAILY@1630 02/28/22 08/05/22 release cetirizine 10 mg tablet 10 mg PO DAILY 03/01/22 08/05/22 docusate sodium 100 mg capsule 100 mg PO BID 03/01/22 08/05/22 finasteride 5 mg tablet 5 mg PO DAILY 03/01/22 08/05/22 furosemide 20 mg tablet 20 mg PO DAILY PRN fluid overload 03/01/22 08/05/22 midodrine 5 mg tablet 1 tab PO TIDAC 03/01/22 08/05/22 rivaroxaban 20 mg tablet (Xarelto) 20 mg PO BEDTIME 03/01/22 08/05/22 acetaminophen 325 mg tablet 650 mg PO TID 03/28/22 08/05/22 albuterol sulfate 2.5 mg/3 mL 2.5 mg inhalation Q8H PRN 03/28/22 08/05/22 (0.083 %) solution for nebulization Shortness Of Breath azelastine 0.05 % eye drops 1 drp ophthalmic (eye) Q12H PRN 03/28/22 08/05/22 Allergy Symptoms calcium carbonate 430 mg calcium 430 mg PO Q8H PRN Indigestion 03/28/22 08/05/22 (1,000 mg) chewable tablet furosemide 20 mg tablet 20 mg PO DAILY 03/28/22 08/05/22 lamotrigine 100 mg tablet 100 mg PO BEDTIME 03/28/22 08/05/22 (Lamictal) lamotrigine 25 mg tablet (Lamictal) 25 mg PO BEDTIME 03/28/22 08/05/22 menthol 4 % topical gel (Biofreeze 1 appl topical BID 03/28/22 08/05/22 (menthol)) menthol 4 % topical gel (Biofreeze 1 appl topical Q2H PRN Pain (Scale 03/28/22 08/05/22 (menthol)) Score 1-3) polyvinyl alcohol 1.4 % eye drops 1 drp ophthalmic (eye) DAILY 03/28/22 08/05/22 pseudoephedrine-guaifenesin ER 60 1 tab PO BID PRN Congestion 03/28/22 08/05/22 mg-600 mg tablet,extend release 12hr (Mucus D) sertraline 100 mg tablet 100 mg PO DAILY 03/28/22 08/05/22 tramadol 100 mg tablet 100 mg PO Q6H PRN Back Pain 03/28/22 08/05/22 acetaminophen 325 mg tablet 650 mg PO DAILY PRN HEADACHE, 07/17/22 08/05/22 fEVER > 100.4, BODY ACHES baclofen 20 mg tablet 20 mg PO BID 07/17/22 08/05/22 budesonide-formoterol HFA 160 2 puff inhalation BID 07/17/22 08/05/22 mcg-4.5 mcg/actuation aerosol inhaler (Symbicort) buspirone 15 mg tablet 1 tab PO TID 07/17/22 08/05/22 sennosides 8.6 mg tablet (senna) 8.6 mg PO BID 07/17/22 08/05/22 umeclidinium 62.5 mcg/actuation 1 inh inhalation DAILY 07/17/22 08/05/22 blister powder for inhalation (Incruse Ellipta) bisacodyl 10 mg rectal suppository 10 mg PA BID PRN Constipation 08/05/22 08/05/22 magnesium hydroxide 400 mg/5 mL 30 ml PO DAILY PRN Constipation 08/05/22 08/05/22 oral suspension (Milk of Magnesia) miconazole nitrate 2 % topical 1 appl topical BEDTIME PRN skin 08/05/22 08/05/22 ointment integrity olanzapine 10 mg tablet 10 mg PO Q8H PRN agitation 08/05/22 08/05/22 Previous Rx's Medication Instructions Recorded haloperidol 5 mg tablet 5 mg PO TID #90 tabs 07/23/22 lorazepam 0.5 mg tablet (Ativan) 0.5 mg PO BID PRN anxiety #30 tabs 07/23/22 cefuroxime axetil 500 mg tablet 500 mg PO BID #10 tabs 08/07/22 prednisone 20 mg tablet 40 mg PO DAILY #10 tabs 08/07/22 lactulose 10 gram/15 mL (15 mL) 10 g (15 mL) PO BEDTIME PRN 09/25/22 oral solution laxative effect #120 mL Allergies Allergy/AdvReac Type Severity Reaction Status Date / Time No Known Allergies Allergy Verified 09/12/22 17:33 Review of Systems Review of Systems: Constitutional : No Weight loss, No Fever, No Chills, No Night Sweats, No Fatigue, No Malaise ENT/Mouth : No Hearing loss, No Ear Pain, No Nasal Congestion, No Sinus Pain, No Hoarseness, No sore throat, No Rhinorrhea, No Swallowing Difficulty Eyes: No Eye Pain, No Swelling, No Redness, No Foreign Body, No Discharge, No Vision Changes Cardiovascular : Complaining of chest pain cough, No SOB, No Dyspnea on Exerti on, No Orthopnea, No Edema, No Palpitations Respiratory : No Cough, No Sputum, No Wheezing, No Smoke Exposure, No Dyspnea Gastrointestinal : No Nausea, No Vomiting, No Diarrhea, complaining of Constip ation, No abdominal Pain, No Hematochezia, No Melena Genitourinary : no irregular bleeding, No Dysuria, No Urinary Frequency, No Hematuria, No Urinary Incontinence, No Urgency, No Flank Pain, No Urinary Flow Changes, No Hesitancy Musculoskeletal : No joint pain, No Myalgias, No Joint Swelling Skin : No Skin Lesions, No rash Neuro : No Weakness, No Numbness, No Paresthesias, No Loss of Consciousness, No Dizziness, No Headache Psych : No Anxiety/Panic, No Depression, No SI/HI/AH/VH, No Social Issues, Heme/Lymph: No Bruising, No Bleeding,No Lymphadenopathy Endocrine : No Polyuria, No Polydipsia, No Temperature Intolerance [facility] Past Medical History Medical History Afib Anxiety disorder CHF (congestive heart failure) Cognitive disorder COPD (chronic obstructive pulmonary disease) CVA (cerebrovascular accident) Mood disorder as late effect of traumatic brain injury Traumatic brain injury Social History Social History Household Members: Unknown / Unable to assess Housing: Other Housing Other:: half-way Unable to assess alcohol history related to: Unable to respond Alcohol intake: never Patient Tobacco Use Status: Former Tobacco user Smoked in Last 30 Days: No Substance Use Type: Unknown Advance Directives: Yes Advance Directives on File: Yes Advance Directives Date on File: 11/11/21 service: No Current occupational status: disabled Physical Exam ED Vital Signs: Vital Signs - 24 hr 09/25/22 15:53 Temperature 98.8 F Pulse Rate 81 Respiratory Rate 24 H Blood Pressure 112/82 Pulse Oximetry 97 Oxygen Delivery Method Nasal Cannula BMI result Body Mass Index 33.0 Const Other: Appearance: Alert. Oriented X3. No acute distress. Eyes: Pupils equal, round and reactive to light. ENT: Pharynx normal. Neck: Normal inspection. Neck supple. No lymph nodes noted. No crepitus CVS: Normal heart rate and rhythm. Pulses normal. Normal S1 and S2 Respiratory: No respiratory distress. Breath sounds normal. No Wheezing. No rales Abdomen: Soft and nontender. No rigidity. No distention. Skin: Skin warm and dry. Normal skin color. Normal skin turgor. Extremities: No lower extremity edema. No Lacerations. No Rash Neuro: Oriented X 3. No motor deficit. No sensory deficit. Moving all extremities. No slurred speech. CN 2 through 12 grossly intact Psych: calm, cooperative, normal affect Course Course Course Narrative: -patient is well-known to the ED, patient looks calm, not in pain free. At baseline. -we will obtain basic lab work -my interpretation of EKG: Atrial fibrillation, rate controlled, heart rate 80, no ST segment depression or elevation, no T-wave inversion, QTC 438. Medications Administered Discontinued Medications Generic Name Dose Route Start Last Admin Trade Name Marcel PRN Reason Stop Dose Admin Acetaminophen 650 mg 09/25/22 16:08 09/25/22 16:44 Acetaminophen 325 Mg Tablet PO 09/25/22 16:09 650 mg ONCE ONE Administration Bisacodyl 10 mg 09/25/22 18:02 09/25/22 18:06 Bisacodyl 5 Mg Tablet.Dr PO 09/25/22 18:03 10 mg ONCE ONE Administration Magnesium Hydroxide 30 ml 09/25/22 17:59 09/25/22 18:06 Milk Of Magnesia 30 Ml Oral.Susp PO 09/25/22 18:00 Not Given ONCE ONE Medical Decision Making Medical Decision Making MDM Narrative: -EKG interpreted by me: Atrial fibrillation, heart rate 80, no ST segment depression or elevation, no T-wave inversion, QTC 438 -troponin negative. Patient has no chest pain. KUB: Interpreted by me, significant amount of stool in the colon, no obstruction, no air-fluid levels -patient was offered Dulcolax, MiraLax and enemas. Patient declined. -patient states that he wants to go home. Differential Diagnosis Differential Diagnoses: The differential diagnosis associated with the presentation includes Lab Data 09/25/22 16:04 09/25/22 16:04 Labs: Lab Results 09/25/22 09/25/22 09/25/22 Range/Units 16:04 16:04 16:04 WBC 7.2 (4.8-10.8) X10*3/uL RBC 3.52 L (4.60-5.80) X10*6/uL Hgb 10.5 L (14.0-18.0) g/dl Hct 32.1 L (42.0-52.0) % MCV 91.2 (80.0-98.0) fL MCH 29.8 (27.0-33.0) pg MCHC 32.7 (31.0-36.0) g/dl RDW 14.3 (11.0-16.0) % Plt Count 181 (160-400) X10*3/uL MPV 10.0 (9.4-12.4) fL Immature Gran % (Auto) 0.7 H (0.0-0.4) % Neut % (Auto) 51.1 (45-73) % Lymph % (Auto) 39.9 (20-40) % Karnes % (Auto) 6.1 (2-11) % Eos % (Auto) 1.2 (0-4) % Baso % (Auto) 1.0 (0-2) % Lymph # (Auto) 2.9 (1.2-4.9) X10*3/uL Karnes # (Auto) 0.4 (0.1-1.2) X10*3/uL Eos # (Auto) 0.1 (0.0-0.4) X10*3/uL Baso # (Auto) 0.1 (0.0-0.2) X10*3/uL Abs Immat Gran (auto) 0.05 H (0.00-0.03) X10*3/uL Absolute Neuts (auto) 3.7 (2.0-8.3) x10*3/uL Absolute Nucleated RBC 0.000 (0.0-0.012) X10*3/uL Nucleated RBC % (auto) 0.0 (0.0-0.2) /100WBC Sodium 143 (135-145) mmol/L Potassium 3.8 (3.3-5.1) mmol/L Chloride 109 H (96-108) mmol/L Carbon Dioxide 26 (22-29) mmol/L Anion Gap 12 (12-20) BUN 10 (9-16) mg/dL Creatinine 0.73 (0.5-1.4) mg/dL Estim Creat Clear Calc 138.4 Estimated GFR > 60 Random Glucose 102 (60-115) mg/dL Calcium 8.5 D (8.4-10.2) mg/dL Total Bilirubin 0.7 (0.0-1.0) mg/dL AST 14 (5-37) U/L ALT 21 (0-40) U/L Alkaline Phosphatase 120 H (39-117) U/L Troponin I High Sens < 2.7 (<3.5-35.0) ng/L Total Protein 5.8 L (6.5-8.0) g/dL Albumin 3.8 (3.5-5.0) g/dL Discharge Plan Discharge Clinical Impression: Constipation, Atypical chest pain Patient Disposition: Home, Self-Care Instructions: Constipation (ED) Additional Instructions: Please follow-up with your primary care physician tomorrow. If you have any worsening or new symptoms, please return to the emergency room or call 911 Prescriptions: New lactulose 10 gram/15 mL (15 mL) solution 10 g PO BEDTIME PRN (Reason: laxative effect) Qty: 120 0RF No Action lorazepam [Ativan] 1 mg tablet 1 tab PO BEDTIME melatonin 5 mg capsule 2 cap PO BEDTIME mirtazapine 15 mg Tablet 15 mg PO BEDTIME atorvastatin 40 mg Tablet 40 mg PO BEDTIME gabapentin 400 mg Capsule 400 mg TID pantoprazole 40 mg Tablet,Delayed Release (Dr/Ec) 40 mg PO DAILY@1630 metoprolol tartrate 50 mg Tablet 50 mg PO BID Rx Instructions: HOLD IF SBP < 100 OR > 140 HOLD IF HR < 60 OR > 100 cetirizine 10 mg Tablet 10 mg PO DAILY docusate sodium 100 mg Capsule 100 mg PO BID furosemide 20 mg Tablet 20 mg PO DAILY PRN (Reason: fluid overload) Rx Instructions: NEEDED FOR WEIGHT GAIN > 3 POUNDS finasteride 5 mg Tablet 5 mg PO DAILY Xarelto 20 mg Tablet 20 mg PO BEDTIME Rx Instructions: must administer with evening meal midodrine 5 mg tablet 1 tab PO TIDAC azelastine 0.05 % Drops 1 drp OPHTHALMIC (EYE) Q12H PRN (Reason: Allergy Symptoms) acetaminophen 325 mg Tablet 650 mg PO TID albuterol sulfate 2.5 mg /3 mL (0.083 %) Solution For Nebulization 2.5 mg INHALATION Q8H PRN (Reason: Shortness Of Breath) polyvinyl alcohol 1.4 % Drops 1 drp OPHTHALMIC (EYE) DAILY sertraline 100 mg Tablet 100 mg PO DAILY Rx Instructions: tdd = 150 mg pseudoephedrine-guaifenesin [Mucus D] 60-600 mg Tablet Extended Release 12 Hr 1 tab PO BID PRN (Reason: Congestion) lamotrigine [Lamictal] 25 mg Tablet 25 mg PO BEDTIME Rx Instructions: tdd = 125 mg Biofreeze (menthol) 4 % Gel 1 appl TOPICAL BID Rx Instructions: apply a thin layer mid to lower back Biofreeze (menthol) 4 % Gel 1 appl TOPICAL Q2H PRN (Reason: Pain (Scale Score 1-3)) Rx Instructions: apply to mid lower back calcium carbonate 430 mg calcium (1,000 mg) Tablet,Chewable 430 mg PO Q8H PRN (Reason: Indigestion) tramadol 100 mg Tablet 100 mg PO Q6H PRN (Reason: Back Pain) furosemide 20 mg Tablet 20 mg PO DAILY Rx Instructions: HOLD FOR SBP< 100 OR > 140 HOLD IF HR < 60 OR > 100 lamotrigine [Lamictal] 100 mg Tablet 100 mg PO BEDTIME Rx Instructions: TAKE TOGETHER WITH 25 MG TAB TDD= 125 MG buspirone 15 mg tablet 1 tab PO TID budesonide-formoterol [Symbicort] 160-4.5 mcg/actuation Hfa Aerosol Inhaler 2 puff INHALATION BID baclofen 20 mg Tablet 20 mg PO BID sennosides [senna] 8.6 mg Tablet 8.6 mg PO BID Rx Instructions: HOLD FOR LOOSE BOWEL MOVEMENT Incruse Ellipta 62.5 mcg/actuation Blister With Device 1 inh INHALATION DAILY acetaminophen 325 mg Tablet 650 mg PO DAILY PRN (Reason: HEADACHE, fEVER > 100.4, BODY ACHES ) haloperidol 5 mg Tablet 5 mg PO TID Qty: 90 0RF lorazepam [Ativan] 0.5 mg tablet 0.5 mg PO BID PRN (Reason: anxiety) Qty: 30 0RF magnesium hydroxide [Milk of Magnesia] 400 mg/5 mL Suspension 30 ml PO DAILY PRN (Reason: Constipation) miconazole nitrate 2 % Ointment 1 appl TOPICAL BEDTIME PRN (Reason: skin integrity) bisacodyl 10 mg Suppository 10 mg PA BID PRN (Reason: Constipation) olanzapine 10 mg tablet 10 mg PO Q8H PRN (Reason: agitation) prednisone 20 mg Tablet 40 mg PO DAILY Qty: 10 0RF cefuroxime axetil 500 mg tablet 500 mg PO BID Qty: 10 0RF
[2022-09-25 16:27] LABS: Alanine Aminotransferase 21 U/L (0-40); Albumin Level 3.8 g/dL (3.5-5.0); Alkaline Phosphatase 120 U/L (39-117); Anion Gap 12 (12-20); Aspartate Amino Transferase 14 U/L (5-37); Bilirubin Total 0.7 mg/dL (0.0-1.0); Blood Urea Nitrogen 10 mg/dL (9-16); Calcium 8.5 mg/dL (8.4-10.2); Carbon Dioxide 26 mmol/L (22-29); Chloride 109 mmol/L (96-108); Creatinine Clr Calc Pharmacy 138.4; Estimated Glomerular Filt Rate > 60; Glucose Random 102 mg/dL (60-115); Potassium 3.8 mmol/L (3.3-5.1); Sodium 143 mmol/L (135-145); Total Protein 5.8 g/dL (6.5-8.0)
[2022-09-25 16:34] LABS: Troponin-I High Sensitivity < 2.7 ng/L (<3.5-35.0)
[2022-09-25] MEDS: Acetaminophen 325 MG TABLET 650 MG PO (16:44)
[2022-09-25] MEDS: bisacodyL 5 MG TABLET.DR 10 MG PO (18:06)
[2022-09-25] MEDS: LORazepam 1 MG TABLET PO (18:48)
[2022-09-25 19:42] VITALS: BP 124/77; PULSE 93; RESP 17; TEMP 37.1; O2SAT 93
--- NOTE | 2022-09-25 20:11 | PC.NURSE ---
this rn assumed care of pt @ 1900. ems report given. vss. iv removed prior to discharge. this rn gave rn to rn report to maged machine carton marker rn [phone]. pt transferred via ambulance back to [facility]
== END 2022-09-25 20:12 | disposition home or self-care (01) ==
PROVIDERS: Emergency Provider Emergency Medicine
DX: K59.00 Constipation, unspecified (principal); R07.89 Other chest pain; Z87.891 Personal history of nicotine dependence; Z79.899 Other long term (current) drug therapy
CPT/HCPCS: 36415; 71045; 74018; 80053; 84484; 85025; 93005; 99284; 99285

== ENCOUNTER 2022-10-01 18:21 | Emergency (ER) | payer OTHER, SELFPAY ==
--- NOTE | ~2022-10-01 | XR_ITS ---
EXAMINATION: XR CHEST CLINICAL INFORMATION: Chest pain COMPARISON: 08/05/2022 and 09/25/2022 TECHNIQUE: 2 views of the chest were obtained. FINDINGS: Large body habitus. Patient's arms partially overlie the chest on the lateral view. The engineering technologist reports patient was unable to elevate arm and had limited movement. Again noted is a large cardiomediastinal silhouette. The chest CT of 08/05/2022 showed extensive mediastinal fat/mediastinal lipomatosis. There is nonspecific persistent generalized interstitial prominence. Again noted is some hazy opacity of the right lower lung and left perihilar region. The lungs remain similar in appearance compared to 08/05/2022. Difficult to determine whether this is from inflammation of airways or represents chronic or recurrent mild interstitial edema. No pleural effusion or pneumothorax. The visualized bones are intact. XR/XR chest 2V IMPRESSION: Cardiomediastinal silhouette is chronically enlarged and there is persistent nonspecific generalized interstitial prominence. This could be a manifestation of inflammation of airways and/or mild interstitial edema. No pleural effusion, pneumothorax or other significant change.
--- NOTE | 2022-10-01 18:56 | ECG_ITS ---
Test Reason : CHEST PAIN Blood Pressure : / mmHG Vent. Rate : 086 BPM Atrial Rate : 000 BPM P-R Int : 000 ms QRS Dur : 082 ms QT Int : 390 ms P-R-T Axes : 000 -01 023 degrees QTc Int : 466 ms Atrial fibrillation with premature ventricular or aberrantly conducted complexes Nonspecific ST abnormality Abnormal ECG When compared with ECG of 25-SEP-2022 16:08, No significant change was found Referred By: Chai Blood Electronically Signed By:Jaylan Rouse
--- NOTE | 2022-10-01 19:00 | ED_ITS ---
HPI - Chest Pain General Chief Complaint: Chest Pain Stated Complaint: chest pain Time Seen by Provider: 10/01/22 18:54 Source: patient Limitations: no limitations History of Present Illness HPI narrative: 57-year-old senior living resident well known to the ED presents to emergency department for recurrent chest pain he states it is slightly worse than has been. He denies any falls or injuries he denies fevers or cough nausea vomiting or diarrhea. MD complaint: chest pain Related Data Home Medications Medication Instructions Recorded Confirmed atorvastatin 40 mg tablet 40 mg PO BEDTIME 02/28/22 08/05/22 gabapentin 400 mg capsule 400 mg TID 02/28/22 08/05/22 lorazepam 1 mg tablet (Ativan) 1 tab PO BEDTIME 02/28/22 08/05/22 melatonin 5 mg capsule 2 cap PO BEDTIME 02/28/22 08/05/22 metoprolol tartrate 50 mg tablet 50 mg PO BID 02/28/22 08/05/22 mirtazapine 15 mg tablet 15 mg PO BEDTIME 02/28/22 08/05/22 pantoprazole 40 mg tablet,delayed 40 mg PO DAILY@1630 02/28/22 08/05/22 release cetirizine 10 mg tablet 10 mg PO DAILY 03/01/22 08/05/22 docusate sodium 100 mg capsule 100 mg PO BID 03/01/22 08/05/22 finasteride 5 mg tablet 5 mg PO DAILY 03/01/22 08/05/22 furosemide 20 mg tablet 20 mg PO DAILY PRN fluid overload 03/01/22 08/05/22 midodrine 5 mg tablet 1 tab PO TIDAC 03/01/22 08/05/22 rivaroxaban 20 mg tablet (Xarelto) 20 mg PO BEDTIME 03/01/22 08/05/22 acetaminophen 325 mg tablet 650 mg PO TID 03/28/22 08/05/22 albuterol sulfate 2.5 mg/3 mL 2.5 mg inhalation Q8H PRN 03/28/22 08/05/22 (0.083 %) solution for nebulization Shortness Of Breath azelastine 0.05 % eye drops 1 drp ophthalmic (eye) Q12H PRN 03/28/22 08/05/22 Allergy Symptoms calcium carbonate 430 mg calcium 430 mg PO Q8H PRN Indigestion 03/28/22 08/05/22 (1,000 mg) chewable tablet furosemide 20 mg tablet 20 mg PO DAILY 03/28/22 08/05/22 lamotrigine 100 mg tablet 100 mg PO BEDTIME 03/28/22 08/05/22 (Lamictal) lamotrigine 25 mg tablet (Lamictal) 25 mg PO BEDTIME 03/28/22 08/05/22 menthol 4 % topical gel (Biofreeze 1 appl topical BID 03/28/22 08/05/22 (menthol)) menthol 4 % topical gel (Biofreeze 1 appl topical Q2H PRN Pain (Scale 03/28/22 08/05/22 (menthol)) Score 1-3) polyvinyl alcohol 1.4 % eye drops 1 drp ophthalmic (eye) DAILY 03/28/22 08/05/22 pseudoephedrine-guaifenesin ER 60 1 tab PO BID PRN Congestion 03/28/22 08/05/22 mg-600 mg tablet,extend release 12hr (Mucus D) sertraline 100 mg tablet 100 mg PO DAILY 03/28/22 08/05/22 tramadol 100 mg tablet 100 mg PO Q6H PRN Back Pain 03/28/22 08/05/22 acetaminophen 325 mg tablet 650 mg PO DAILY PRN HEADACHE, 07/17/22 08/05/22 fEVER > 100.4, BODY ACHES baclofen 20 mg tablet 20 mg PO BID 07/17/22 08/05/22 budesonide-formoterol HFA 160 2 puff inhalation BID 07/17/22 08/05/22 mcg-4.5 mcg/actuation aerosol inhaler (Symbicort) buspirone 15 mg tablet 1 tab PO TID 07/17/22 08/05/22 sennosides 8.6 mg tablet (senna) 8.6 mg PO BID 07/17/22 08/05/22 umeclidinium 62.5 mcg/actuation 1 inh inhalation DAILY 07/17/22 08/05/22 blister powder for inhalation (Incruse Ellipta) bisacodyl 10 mg rectal suppository 10 mg MS BID PRN Constipation 08/05/22 08/05/22 magnesium hydroxide 400 mg/5 mL 30 ml PO DAILY PRN Constipation 08/05/22 08/05/22 oral suspension (Milk of Magnesia) miconazole nitrate 2 % topical 1 appl topical BEDTIME PRN skin 08/05/22 08/05/22 ointment integrity olanzapine 10 mg tablet 10 mg PO Q8H PRN agitation 08/05/22 08/05/22 Previous Rx's Medication Instructions Recorded haloperidol 5 mg tablet 5 mg PO TID #90 tabs 07/23/22 lorazepam 0.5 mg tablet (Ativan) 0.5 mg PO BID PRN anxiety #30 tabs 07/23/22 cefuroxime axetil 500 mg tablet 500 mg PO BID #10 tabs 08/07/22 prednisone 20 mg tablet 40 mg PO DAILY #10 tabs 08/07/22 lactulose 10 gram/15 mL (15 mL) 10 g (15 mL) PO BEDTIME PRN 09/25/22 oral solution laxative effect #120 mL Allergies Allergy/AdvReac Type Severity Reaction Status Date / Time No Known Allergies Allergy Verified 09/12/22 17:33 Review of Systems Review of Systems: Review of systems: General: Patient denies any fever chills recent illness or falls Musculoskeletal: Denies back pain or body aches or other injuries HEENT: denies headache, runny nose, ear pain Respiratory: denies shortness of breath, cough Cardiovascular: chest pain no palpitations : denies dysuria, frequency Abdomen: no nausea vomiting denies abdominal pain Extremities: no swelling, no pain Skin: no diaphoresis Yes all other systems are reviewed and are negative PMFSH Past Medical History Medical History Afib Anxiety disorder CHF (congestive heart failure) Cognitive disorder COPD (chronic obstructive pulmonary disease) CVA (cerebrovascular accident) Mood disorder as late effect of traumatic brain injury Traumatic brain injury Social History Social History Household Members: Unknown / Unable to assess Housing: Other Housing Other:: senior living Unable to assess alcohol history related to: Unable to respond Alcohol intake: never Patient Tobacco Use Status: Former Tobacco user Smoked in Last 30 Days: No Use of substances other than those prescribed or required for medical reasons: No Substance Use Type: Unknown Advance Directives: Yes Advance Directives on File: Yes Advance Directives Date on File: 11/11/21 service: No Current occupational status: disabled Physical Exam Vital Signs: Vital Signs: Last Vital Signs Temp 97.6 F 10/01/22 19:05 Pulse 95 10/01/22 19:05 Resp 14 10/01/22 19:05 BP 112/76 10/01/22 19:05 Pulse Ox 95 10/01/22 19:05 O2 Del Method Nasal Cannula 10/01/22 19:05 Oxygen Flow Rate 2 10/01/22 19:05 BMI result Body Mass Index 29.1 General: Well-appearing well-nourished in no signs of distress HEENT: Normocephalic atraumatic Neck: No signs of JVD, no masses no tenderness or lymphadenopathy Cardiovascular: Regular rate and rhythm Respiratory: Clear to auscultation bilaterally Abdomen: Soft nontender no masses rectal exam performed guia negative director of quality improvement confirmed. Extremities: Normal pedal pulses no signs of edema Skin: Dry warm no rashes Back: No tenderness full ROM Medical Decision Making Medical Decision Making [facility] Narrative: Concern for atypical chest pain patient could have pneumonia or ACS I will get chest x-ray and labs. Xr and labs are all normal patient looks well I will send back to the senior living. Differential Diagnosis Differential Diagnoses: The differential diagnosis associated with the presentation includes ACS though very unlikely history this is a gated chest pain Admission/Observation Consideration of admission/observation: Escalation of care including admission/observation considered Lab Data [facility] Lab Attestation statement: I reviewed the patient's lab results. 10/01/22 19:29 10/01/22 19:29 Labs: Lab Results 10/01/22 10/01/22 10/01/22 Range/Units 19:29 19:29 19:29 WBC 10.5 (4.8-10.8) X10*3/uL RBC 4.49 L D (4.60-5.80) X10*6/uL Hgb 13.6 L D (14.0-18.0) g/dl Hct 40.5 L D (42.0-52.0) % MCV 90.2 (80.0-98.0) fL MCH 30.3 (27.0-33.0) pg MCHC 33.6 (31.0-36.0) g/dl RDW 14.1 (11.0-16.0) % Plt Count 263 D (160-400) X10*3/uL MPV 9.8 (9.4-12.4) fL Immature Gran % (Auto) 0.5 H (0.0-0.4) % Neut % (Auto) 62.1 (45-73) % Lymph % (Auto) 31.0 (20-40) % Dundy % (Auto) 5.2 (2-11) % Eos % (Auto) 0.6 (0-4) % Baso % (Auto) 0.6 (0-2) % Lymph # (Auto) 3.3 (1.2-4.9) X10*3/uL Dundy # (Auto) 0.6 (0.1-1.2) X10*3/uL Eos # (Auto) 0.1 (0.0-0.4) X10*3/uL Baso # (Auto) 0.1 (0.0-0.2) X10*3/uL Abs Immat Gran (auto) 0.05 H (0.00-0.03) X10*3/uL Absolute Neuts (auto) 6.5 (2.0-8.3) x10*3/uL Absolute Nucleated RBC 0.000 (0.0-0.012) X10*3/uL Nucleated RBC % (auto) 0.0 (0.0-0.2) /100WBC Sodium 145 (135-145) mmol/L Potassium 3.5 (3.3-5.1) mmol/L Chloride 107 (96-108) mmol/L Carbon Dioxide 28 (22-29) mmol/L Anion Gap 14 (12-20) BUN 9 (9-16) mg/dL Creatinine 0.71 (0.5-1.4) mg/dL Estim Creat Clear Calc 150.5 Estimated GFR > 60 Random Glucose 98 (60-115) mg/dL Calcium 9.2 D (8.4-10.2) mg/dL Troponin I High Sens 2.7 (<3.5-35.0) ng/L Independent Interpretation I performed an independent interpretation of an: EKG and Plain X-Ray Interpretation: Rate 86 atrial fibrillation no signs of ischemia no change from previous X-ray does not show any acute disease process Radiology Impression Discussion of test interpretation with radiology: I have reviewed the radiologist's reading. External Record Review External record reviewed: Inpatient record and Outside ED record Core Measures AMI core measures followed: No Discharge Plan Discharge Clinical Impression: Atypical chest pain Patient Disposition: Home, Self-Care Instructions: Noncardiac Chest Pain (ED) Additional Instructions: You were seen today at [facility] for chest pain. You had an x-ray and labs which were all normal. If you have any other concerns please do not hesitate to come back to emergency department. Prescriptions: No Action lorazepam [Ativan] 1 mg tablet 1 tab PO BEDTIME melatonin 5 mg capsule 2 cap PO BEDTIME mirtazapine 15 mg Tablet 15 mg PO BEDTIME atorvastatin 40 mg Tablet 40 mg PO BEDTIME gabapentin 400 mg Capsule 400 mg TID pantoprazole 40 mg Tablet,Delayed Release (Dr/Ec) 40 mg PO DAILY@1630 metoprolol tartrate 50 mg Tablet 50 mg PO BID Rx Instructions: HOLD IF SBP < 100 OR > 140 HOLD IF HR < 60 OR > 100 cetirizine 10 mg Tablet 10 mg PO DAILY docusate sodium 100 mg Capsule 100 mg PO BID furosemide 20 mg Tablet 20 mg PO DAILY PRN (Reason: fluid overload) Rx Instructions: NEEDED FOR WEIGHT GAIN > 3 POUNDS finasteride 5 mg Tablet 5 mg PO DAILY Xarelto 20 mg Tablet 20 mg PO BEDTIME Rx Instructions: must administer with evening meal midodrine 5 mg tablet 1 tab PO TIDAC azelastine 0.05 % Drops 1 drp OPHTHALMIC (EYE) Q12H PRN (Reason: Allergy Symptoms) acetaminophen 325 mg Tablet 650 mg PO TID albuterol sulfate 2.5 mg /3 mL (0.083 %) Solution For Nebulization 2.5 mg INHALATION Q8H PRN (Reason: Shortness Of Breath) polyvinyl alcohol 1.4 % Drops 1 drp OPHTHALMIC (EYE) DAILY sertraline 100 mg Tablet 100 mg PO DAILY Rx Instructions: tdd = 150 mg pseudoephedrine-guaifenesin [Mucus D] 60-600 mg Tablet Extended Release 12 Hr 1 tab PO BID PRN (Reason: Congestion) lamotrigine [Lamictal] 25 mg Tablet 25 mg PO BEDTIME Rx Instructions: tdd = 125 mg Biofreeze (menthol) 4 % Gel 1 appl TOPICAL BID Rx Instructions: apply a thin layer mid to lower back Biofreeze (menthol) 4 % Gel 1 appl TOPICAL Q2H PRN (Reason: Pain (Scale Score 1-3)) Rx Instructions: apply to mid lower back calcium carbonate 430 mg calcium (1,000 mg) Tablet,Chewable 430 mg PO Q8H PRN (Reason: Indigestion) tramadol 100 mg Tablet 100 mg PO Q6H PRN (Reason: Back Pain) furosemide 20 mg Tablet 20 mg PO DAILY Rx Instructions: HOLD FOR SBP< 100 OR > 140 HOLD IF HR < 60 OR > 100 lamotrigine [Lamictal] 100 mg Tablet 100 mg PO BEDTIME Rx Instructions: TAKE TOGETHER WITH 25 MG TAB TDD= 125 MG buspirone 15 mg tablet 1 tab PO TID budesonide-formoterol [Symbicort] 160-4.5 mcg/actuation Hfa Aerosol Inhaler 2 puff INHALATION BID baclofen 20 mg Tablet 20 mg PO BID sennosides [senna] 8.6 mg Tablet 8.6 mg PO BID Rx Instructions: HOLD FOR LOOSE BOWEL MOVEMENT Incruse Ellipta 62.5 mcg/actuation Blister With Device 1 inh INHALATION DAILY acetaminophen 325 mg Tablet 650 mg PO DAILY PRN (Reason: HEADACHE, fEVER > 100.4, BODY ACHES ) haloperidol 5 mg Tablet 5 mg PO TID Qty: 90 0RF lorazepam [Ativan] 0.5 mg tablet 0.5 mg PO BID PRN (Reason: anxiety) Qty: 30 0RF magnesium hydroxide [Milk of Magnesia] 400 mg/5 mL Suspension 30 ml PO DAILY PRN (Reason: Constipation) miconazole nitrate 2 % Ointment 1 appl TOPICAL BEDTIME PRN (Reason: skin integrity) bisacodyl 10 mg Suppository 10 mg MS BID PRN (Reason: Constipation) olanzapine 10 mg tablet 10 mg PO Q8H PRN (Reason: agitation) prednisone 20 mg Tablet 40 mg PO DAILY Qty: 10 0RF cefuroxime axetil 500 mg tablet 500 mg PO BID Qty: 10 0RF lactulose 10 gram/15 mL (15 mL) solution 10 g PO BEDTIME PRN (Reason: laxative effect) Qty: 120 0RF
[2022-10-01 19:05] VITALS: BP 112/76; BP 80/70; PULSE 70; PULSE 95; RESP 14; TEMP 36.4; O2SAT 95; O2SAT 98; BMI 29.1
--- NOTE | 2022-10-01 19:21 | PC.NURSE ---
Provider in to assess pt, pt placed on bedside monitor, ekg completed. Will continue to monitor.
[2022-10-01 19:33] LABS: MANUAL DIFF FLAG NO
[2022-10-01 19:34] LABS: Basophils Absolute Auto 0.1 X10*3/uL (0.0-0.2); Basophils Percent Auto 0.6 % (0-2); Eosinophils Absolute Auto 0.1 X10*3/uL (0.0-0.4); Eosinophils Percent Auto 0.6 % (0-4); Hematocrit 40.5 % (42.0-52.0); Hemoglobin 13.6 g/dl (14.0-18.0); Imm Gran Abs Auto 0.05 X10*3/uL (0.00-0.03); Imm Gran Pct Auto 0.5 % (0.0-0.4); Lymphocytes Absolute Auto 3.3 X10*3/uL (1.2-4.9); Mean Corpuscular HGB Conc 33.6 g/dl (31.0-36.0); Mean Corpuscular Hemoglobin 30.3 pg (27.0-33.0); Mean Corpuscular Volume 90.2 fL (80.0-98.0); Mean Platelet Volume 9.8 fL (9.4-12.4); Monocytes Absolute Auto 0.6 X10*3/uL (0.1-1.2); Monocytes Percent Auto 5.2 % (2-11); Neutrophils Absolute Auto 6.5 x10*3/uL (2.0-8.3); Neutrophils Percent Auto 62.1 % (45-73); Platelet Count 263 X10*3/uL (160-400); Red Blood Count 4.49 X10*6/uL (4.60-5.80); Red Cell Distribution Width 14.1 % (11.0-16.0); White Blood Count 10.5 X10*3/uL (4.8-10.8)
--- NOTE | 2022-10-01 19:41 | PC.NURSE ---
labs collected and sent, iv placed in right forearm.
[2022-10-01 19:45] LABS: Anion Gap 14 (12-20); Blood Urea Nitrogen 9 mg/dL (9-16); Calcium 9.2 mg/dL (8.4-10.2); Carbon Dioxide 28 mmol/L (22-29); Chloride 107 mmol/L (96-108); Creatinine Clr Calc Pharmacy 150.5; Estimated Glomerular Filt Rate > 60; Glucose Random 98 mg/dL (60-115); Potassium 3.5 mmol/L (3.3-5.1); Sodium 145 mmol/L (135-145)
[2022-10-01 19:54] LABS: Troponin-I High Sensitivity 2.7 ng/L (<3.5-35.0)
[2022-10-01 21:10] VITALS: BP 103/79; PULSE 90; RESP 20; TEMP 36.7; O2SAT 96
--- NOTE | 2022-10-01 21:18 | PC.NURSE ---
pt cooperative, no aggressive behavior, pt medically cleared, ambulance on route to return pt back to facility, Report called to facility [facility].
== END 2022-10-01 21:25 | disposition home or self-care (01) ==
PROVIDERS: Emergency Provider Student in an Organized Health Care Education/Training Program; PCP Family Medicine
DX: R07.89 Other chest pain (principal); I48.91 Unspecified atrial fibrillation; Z86.73 Personal history of transient ischemic attack (TIA), and cerebral infarction without residual deficits; Z79.02 Long term (current) use of antithrombotics/antiplatelets; Z79.899 Other long term (current) drug therapy; Z79.01 Long term (current) use of anticoagulants
CPT/HCPCS: 36415; 71046; 80048; 84484; 85025; 93005; 99283; 99285

== ENCOUNTER 2022-10-06 22:44 | Emergency (ER) | payer OTHER, SELFPAY ==
--- NOTE | ~2022-10-06 | XR_ITS ---
EXAMINATION: XR CHEST CLINICAL INFORMATION: Shortness of breath COMPARISON: 10/01/2022 TECHNIQUE: Frontal view of the chest was obtained. FINDINGS: The lungs are hypoinflated. Mild interstitial prominence redemonstrated. No convincing new focal consolidation. No evidence of pneumothorax. No significant pleural effusion, though evaluation is limited due to prominence of pericardial fat. Cardiac silhouette remains enlarged, partially due to prominent pericardial fat. No acute osseous findings are seen. XR/XR chest 1V IMPRESSION: Low lung volumes with mild interstitial prominence, similar to prior and which could reflect a degree of vascular congestion. No definite acute consolidation.
[2022-10-06 22:55] VITALS: BP 110/65; BP 130/90; PULSE 72; PULSE 76; RESP 18; TEMP 36.7; O2SAT 94; O2SAT 96; BMI 28.7
[2022-10-06 23:05] VITALS: BP 112/68; PULSE 65; RESP 16; TEMP 36.7; O2SAT 97
--- NOTE | 2022-10-06 23:51 | ECG_ITS ---
Test Reason : shortness of breath Blood Pressure : / mmHG Vent. Rate : 067 BPM Atrial Rate : 000 BPM P-R Int : 000 ms QRS Dur : 082 ms QT Int : 432 ms P-R-T Axes : 000 000 017 degrees QTc Int : 456 ms Atrial fibrillation Nonspecific T wave abnormality Abnormal ECG When compared with ECG of 01-OCT-2022 19:11, Nonspecific T wave abnormality now evident in Anterior leads Referred By: Sue Mahoney Electronically Signed By:JAGDISH LIU MD
--- NOTE | 2022-10-06 23:52 | ED_ITS ---
HPI - SOB/Dyspnea General Chief Complaint: Dyspnea Stated Complaint: Difficulty breathing Time Seen by Provider: 10/06/22 22:50 Source: patient Mode of arrival: EMS Limitations: no limitations History of Present Illness HPI Narrative: Patient comes to the emergency room from a long term. Patient comes to emergency room complaining of shortness of breath. Patient unable to give full history. Uses short of breath, and also has chest pain. Patient comes frequently to emergency room complaining on nonspecific chest pain. According to EMS, the long term staff informed the EMS crew that sometimes the patient uses 2 L of oxygen p.r.n. shortness of breath. Today, he has been using it more than usual. Related Data Home Medications Medication Instructions Recorded Confirmed atorvastatin 40 mg tablet 40 mg PO BEDTIME 02/28/22 08/05/22 gabapentin 400 mg capsule 400 mg TID 02/28/22 08/05/22 lorazepam 1 mg tablet (Ativan) 1 tab PO BEDTIME 02/28/22 08/05/22 melatonin 5 mg capsule 2 cap PO BEDTIME 02/28/22 08/05/22 metoprolol tartrate 50 mg tablet 50 mg PO BID 02/28/22 08/05/22 mirtazapine 15 mg tablet 15 mg PO BEDTIME 02/28/22 08/05/22 pantoprazole 40 mg tablet,delayed 40 mg PO DAILY@1630 02/28/22 08/05/22 release cetirizine 10 mg tablet 10 mg PO DAILY 03/01/22 08/05/22 docusate sodium 100 mg capsule 100 mg PO BID 03/01/22 08/05/22 finasteride 5 mg tablet 5 mg PO DAILY 03/01/22 08/05/22 furosemide 20 mg tablet 20 mg PO DAILY PRN fluid overload 03/01/22 08/05/22 midodrine 5 mg tablet 1 tab PO TIDAC 03/01/22 08/05/22 rivaroxaban 20 mg tablet (Xarelto) 20 mg PO BEDTIME 03/01/22 08/05/22 acetaminophen 325 mg tablet 650 mg PO TID 03/28/22 08/05/22 albuterol sulfate 2.5 mg/3 mL 2.5 mg inhalation Q8H PRN 03/28/22 08/05/22 (0.083 %) solution for nebulization Shortness Of Breath azelastine 0.05 % eye drops 1 drp ophthalmic (eye) Q12H PRN 03/28/22 08/05/22 Allergy Symptoms calcium carbonate 430 mg calcium 430 mg PO Q8H PRN Indigestion 03/28/22 08/05/22 (1,000 mg) chewable tablet furosemide 20 mg tablet 20 mg PO DAILY 03/28/22 08/05/22 lamotrigine 100 mg tablet 100 mg PO BEDTIME 03/28/22 08/05/22 (Lamictal) lamotrigine 25 mg tablet (Lamictal) 25 mg PO BEDTIME 03/28/22 08/05/22 menthol 4 % topical gel (Biofreeze 1 appl topical BID 03/28/22 08/05/22 (menthol)) menthol 4 % topical gel (Biofreeze 1 appl topical Q2H PRN Pain (Scale 03/28/22 08/05/22 (menthol)) Score 1-3) polyvinyl alcohol 1.4 % eye drops 1 drp ophthalmic (eye) DAILY 03/28/22 08/05/22 pseudoephedrine-guaifenesin ER 60 1 tab PO BID PRN Congestion 03/28/22 08/05/22 mg-600 mg tablet,extend release 12hr (Mucus D) sertraline 100 mg tablet 100 mg PO DAILY 03/28/22 08/05/22 tramadol 100 mg tablet 100 mg PO Q6H PRN Back Pain 03/28/22 08/05/22 acetaminophen 325 mg tablet 650 mg PO DAILY PRN HEADACHE, 07/17/22 08/05/22 fEVER > 100.4, BODY ACHES baclofen 20 mg tablet 20 mg PO BID 07/17/22 08/05/22 budesonide-formoterol HFA 160 2 puff inhalation BID 07/17/22 08/05/22 mcg-4.5 mcg/actuation aerosol inhaler (Symbicort) buspirone 15 mg tablet 1 tab PO TID 07/17/22 08/05/22 sennosides 8.6 mg tablet (senna) 8.6 mg PO BID 07/17/22 08/05/22 umeclidinium 62.5 mcg/actuation 1 inh inhalation DAILY 07/17/22 08/05/22 blister powder for inhalation (Incruse Ellipta) bisacodyl 10 mg rectal suppository 10 mg ME BID PRN Constipation 08/05/22 08/05/22 magnesium hydroxide 400 mg/5 mL 30 ml PO DAILY PRN Constipation 08/05/22 08/05/22 oral suspension (Milk of Magnesia) miconazole nitrate 2 % topical 1 appl topical BEDTIME PRN skin 08/05/22 08/05/22 ointment integrity olanzapine 10 mg tablet 10 mg PO Q8H PRN agitation 08/05/22 08/05/22 Previous Rx's Medication Instructions Recorded haloperidol 5 mg tablet 5 mg PO TID #90 tabs 07/23/22 lorazepam 0.5 mg tablet (Ativan) 0.5 mg PO BID PRN anxiety #30 tabs 07/23/22 cefuroxime axetil 500 mg tablet 500 mg PO BID #10 tabs 08/07/22 prednisone 20 mg tablet 40 mg PO DAILY #10 tabs 08/07/22 lactulose 10 gram/15 mL (15 mL) 10 g (15 mL) PO BEDTIME PRN 09/25/22 oral solution laxative effect #120 mL doxycycline hyclate 100 mg capsule 100 mg PO BID #14 caps 10/07/22 Allergies Allergy/AdvReac Type Severity Reaction Status Date / Time No Known Allergies Allergy Verified 09/12/22 17:33 Review of Systems Review of Systems: Constitutional : No Weight loss, No Fever, No Chills, No Night Sweats, No Fatigue, No Malaise ENT/Mouth : No Hearing loss, No Ear Pain, No Nasal Congestion, No Sinus Pain, No Hoarseness, No sore throat, No Rhinorrhea, No Swallowing Difficulty Eyes: No Eye Pain, No Swelling, No Redness, No Foreign Body, No Discharge, No Vision Changes Cardiovascular : Complaining of chronic Chest Pain, No SOB, No Orthopnea, No Edema, No Palpitations Respiratory : No Cough, No Sputum, No Wheezing, No Smoke Exposure, complaining of Dyspnea Gastrointestinal : No Nausea, No Vomiting, No Diarrhea, No Constipation, No ab dominal Pain, No Hematochezia, No Melena Genitourinary : no irregular bleeding, No Dysuria, No Urinary Frequency, No Hematuria, No Urinary Incontinence, No Urgency, No Flank Pain, No Urinary Flow Changes, No Hesitancy Musculoskeletal : No joint pain, No Myalgias, No Joint Swelling Skin : No Skin Lesions, No rash Neuro : No Weakness, No Numbness, No Paresthesias, No Loss of Consciousness, No Dizziness, No Headache Psych : No Anxiety/Panic, No Depression, No SI/HI/AH/VH, No Social Issues, Heme/Lymph: No Bruising, No Bleeding,No Lymphadenopathy Endocrine : No Polyuria, No Polydipsia, No Temperature Intolerance [facility] Past Medical History Medical History Afib Anxiety disorder CHF (congestive heart failure) Cognitive disorder COPD (chronic obstructive pulmonary disease) CVA (cerebrovascular accident) Mood disorder as late effect of traumatic brain injury Traumatic brain injury Social History Social History Household Members: Unknown / Unable to assess Housing: Other Housing Other:: long term Unable to assess alcohol history related to: Unable to respond Alcohol intake: never Patient Tobacco Use Status: Former Tobacco user Smoked in Last 30 Days: No Use of substances other than those prescribed or required for medical reasons: No Substance Use Type: Unknown Advance Directives: Yes Advance Directives on File: Yes Advance Directives Date on File: 11/11/21 service: No Current occupational status: disabled Physical Exam Vital Signs: Vital Signs: Last Vital Signs Temp 98.1 F 10/06/22 23:05 Pulse 89 10/07/22 01:54 Resp 20 10/07/22 01:54 BP 126/80 10/07/22 01:54 Pulse Ox 95 10/07/22 01:54 O2 Del Method Nasal Cannula 10/07/22 01:54 O2 Flow Rate 3 10/07/22 01:54 Oxygen Flow Rate 3 10/06/22 22:55 BMI result Body Mass Index 28.7 Const: Other: Appearance: Alert. Oriented X3. No acute distress. Eyes: Pupils equal, round and reactive to light. ENT: Pharynx normal. Neck: Normal inspection. Neck supple. No lymph nodes noted. No crepitus CVS: Normal heart rate and rhythm. Pulses normal. Normal S1 and S2 Respiratory: No respiratory distress. Breath sounds normal. No Wheezing. No rales Abdomen: Soft and nontender. No rigidity. No distention. Skin: Skin warm and dry. Normal skin color. Normal skin turgor. Extremities: No lower extremity edema. No Lacerations. No Rash Neuro: Oriented X 3. No motor deficit. No sensory deficit. Moving all extremities. No slurred speech. CN 2 through 12 grossly intact Psych: calm, cooperative, normal affect Course Course Course Narrative: -all of patient's labs and imaging pending -patient's oxygen saturation 97% on 3 L nasal cannula, 90% on room air. Medications Administered Discontinued Medications Generic Name Dose Route Start Last Admin Trade Name Freq PRN Reason Stop Dose Admin Doxycycline Monohydrate 100 mg 10/07/22 01:02 10/07/22 01:22 Doxycycline Monohydrate 100 Mg Capsule PO 10/07/22 01:03 100 mg ONCE ONE Administration Potassium Chloride 40 meq 10/07/22 01:02 10/07/22 01:22 Potassium Chloride Packet 20 Meq Packet PO 10/07/22 01:03 40 meq ONCE ONE Administration Medical Decision Making Medical Decision Making [facility] Narrative: -patient has an elevated white blood cell count. This is new for the patient. The patient is calmer with this, we will go ahead and treat with antibiotics. Patient has oxygen at home -troponin negative -EKG my interpretation: Atrial fibrillation, 167, no ST segment depression or elevation, no T-wave inversion, QTC 456 BNP at baseline -his x-ray does not show pneumonia, patient likely has bronchitis Lab Data [facility] Lab Attestation statement: I reviewed the patient's lab results. 10/07/22 00:24 10/07/22 00:24 Labs: Lab Results 10/07/22 10/07/22 10/07/22 Range/Units 00:23 00:24 00:24 WBC 12.2 H (4.8-10.8) X10*3/uL RBC 4.24 L (4.60-5.80) X10*6/uL Hgb 12.4 L (14.0-18.0) g/dl Hct 38.4 L (42.0-52.0) % MCV 90.6 (80.0-98.0) fL MCH 29.2 (27.0-33.0) pg MCHC 32.3 (31.0-36.0) g/dl RDW 14.3 (11.0-16.0) % Plt Count 244 (160-400) X10*3/uL MPV 9.4 (9.4-12.4) fL Immature Gran % (Auto) 0.7 H (0.0-0.4) % Neut % (Auto) 56.3 (45-73) % Lymph % (Auto) 35.5 (20-40) % Merrick % (Auto) 5.9 (2-11) % Eos % (Auto) 1.1 (0-4) % Baso % (Auto) 0.5 (0-2) % Lymph # (Auto) 4.3 (1.2-4.9) X10*3/uL Merrick # (Auto) 0.7 (0.1-1.2) X10*3/uL Eos # (Auto) 0.1 (0.0-0.4) X10*3/uL Baso # (Auto) 0.1 (0.0-0.2) X10*3/uL Abs Immat Gran (auto) 0.08 H (0.00-0.03) X10*3/uL Absolute Neuts (auto) 6.9 (2.0-8.3) x10*3/uL Absolute Nucleated RBC 0.000 (0.0-0.012) X10*3/uL Nucleated RBC % (auto) 0.0 (0.0-0.2) /100WBC PT 24.1 H (10.0-13.1) SEC INR 2.0 H (0.9-1.1) VBG pH 7.45 H (7.32-7.43) VBG pCO2 45 mmHg VBG pO2 58 mmHg VBG HCO3 31 H (22-26) mmol/L VBG O2 Saturation 88.0 % VBG Base Excess 6.7 mmol/L Sodium (135-145) mmol/L Potassium (3.3-5.1) mmol/L Chloride (96-108) mmol/L Carbon Dioxide (22-29) mmol/L Anion Gap (12-20) BUN (9-16) mg/dL Creatinine (0.5-1.4) mg/dL Estim Creat Clear Calc Estimated GFR Random Glucose (60-115) mg/dL Lactic Acid (0.5-2.0) mmol/L Calcium (8.4-10.2) mg/dL Total Bilirubin (0.0-1.0) mg/dL Direct Bilirubin (0.0-0.5) mg/dL AST (5-37) U/L ALT (0-40) U/L Alkaline Phosphatase (39-117) U/L Troponin I High Sens (<3.5-35.0) ng/L B-Natriuretic Peptide (<100) pg/mL Total Protein (6.5-8.0) g/dL Albumin (3.5-5.0) g/dL 10/07/22 10/07/22 10/07/22 Range/Units 00:24 00:24 00:24 WBC (4.8-10.8) X10*3/uL RBC (4.60-5.80) X10*6/uL Hgb (14.0-18.0) g/dl Hct (42.0-52.0) % MCV (80.0-98.0) fL MCH (27.0-33.0) pg MCHC (31.0-36.0) g/dl RDW (11.0-16.0) % Plt Count (160-400) X10*3/uL MPV (9.4-12.4) fL Immature Gran % (Auto) (0.0-0.4) % Neut % (Auto) (45-73) % Lymph % (Auto) (20-40) % Merrick % (Auto) (2-11) % Eos % (Auto) (0-4) % Baso % (Auto) (0-2) % Lymph # (Auto) (1.2-4.9) X10*3/uL Merrick # (Auto) (0.1-1.2) X10*3/uL Eos # (Auto) (0.0-0.4) X10*3/uL Baso # (Auto) (0.0-0.2) X10*3/uL Abs Immat Gran (auto) (0.00-0.03) X10*3/uL Absolute Neuts (auto) (2.0-8.3) x10*3/uL Absolute Nucleated RBC (0.0-0.012) X10*3/uL Nucleated RBC % (auto) (0.0-0.2) /100WBC PT (10.0-13.1) SEC INR (0.9-1.1) VBG pH (7.32-7.43) VBG pCO2 mmHg VBG pO2 mmHg VBG HCO3 (22-26) mmol/L VBG O2 Saturation % VBG Base Excess mmol/L Sodium 144 (135-145) mmol/L Potassium 3.2 L (3.3-5.1) mmol/L Chloride 106 (96-108) mmol/L Carbon Dioxide 32 H (22-29) mmol/L Anion Gap 9 L (12-20) BUN 13 (9-16) mg/dL Creatinine 0.75 (0.5-1.4) mg/dL Estim Creat Clear Calc 145.4 Estimated GFR > 60 Random Glucose 95 (60-115) mg/dL Lactic Acid 1.2 (0.5-2.0) mmol/L Calcium 9.0 (8.4-10.2) mg/dL Total Bilirubin 0.5 (0.0-1.0) mg/dL Direct Bilirubin 0.2 (0.0-0.5) mg/dL AST 12 (5-37) U/L ALT 17 (0-40) U/L Alkaline Phosphatase 140 H (39-117) U/L Troponin I High Sens < 2.7 (<3.5-35.0) ng/L B-Natriuretic Peptide (<100) pg/mL Total Protein 5.9 L (6.5-8.0) g/dL Albumin 3.9 (3.5-5.0) g/dL 10/07/22 Range/Units 00:24 WBC (4.8-10.8) X10*3/uL RBC (4.60-5.80) X10*6/uL Hgb (14.0-18.0) g/dl Hct (42.0-52.0) % MCV (80.0-98.0) fL MCH (27.0-33.0) pg MCHC (31.0-36.0) g/dl RDW (11.0-16.0) % Plt Count (160-400) X10*3/uL MPV (9.4-12.4) fL Immature Gran % (Auto) (0.0-0.4) % Neut % (Auto) (45-73) % Lymph % (Auto) (20-40) % Merrick % (Auto) (2-11) % Eos % (Auto) (0-4) % Baso % (Auto) (0-2) % Lymph # (Auto) (1.2-4.9) X10*3/uL Merrick # (Auto) (0.1-1.2) X10*3/uL Eos # (Auto) (0.0-0.4) X10*3/uL Baso # (Auto) (0.0-0.2) X10*3/uL Abs Immat Gran (auto) (0.00-0.03) X10*3/uL Absolute Neuts (auto) (2.0-8.3) x10*3/uL Absolute Nucleated RBC (0.0-0.012) X10*3/uL Nucleated RBC % (auto) (0.0-0.2) /100WBC PT (10.0-13.1) SEC INR (0.9-1.1) VBG pH (7.32-7.43) VBG pCO2 mmHg VBG pO2 mmHg VBG HCO3 (22-26) mmol/L VBG O2 Saturation % VBG Base Excess mmol/L Sodium (135-145) mmol/L Potassium (3.3-5.1) mmol/L Chloride (96-108) mmol/L Carbon Dioxide (22-29) mmol/L Anion Gap (12-20) BUN (9-16) mg/dL Creatinine (0.5-1.4) mg/dL Estim Creat Clear Calc Estimated GFR Random Glucose (60-115) mg/dL Lactic Acid (0.5-2.0) mmol/L Calcium (8.4-10.2) mg/dL Total Bilirubin (0.0-1.0) mg/dL Direct Bilirubin (0.0-0.5) mg/dL AST (5-37) U/L ALT (0-40) U/L Alkaline Phosphatase (39-117) U/L Troponin I High Sens (<3.5-35.0) ng/L B-Natriuretic Peptide 74 (<100) pg/mL Total Protein (6.5-8.0) g/dL Albumin (3.5-5.0) g/dL Radiology Impression Discussion of test interpretation with radiology: I have reviewed the radiologist's reading. Radiologist Impression: FINDINGS: The lungs are hypoinflated. Mild interstitial prominence redemonstrated. No convincing new focal consolidation. No evidence of pneumothorax. No significant pleural effusion, though evaluation is limited due to prominence of pericardial fat. Cardiac silhouette remains enlarged, partially due to prominent pericardial fat. No acute osseous findings are seen. XR/XR chest 1V IMPRESSION: Low lung volumes with mild interstitial prominence, similar to prior and which could reflect a degree of vascular congestion. No definite acute consolidation. Discharge Plan Discharge Clinical Impression: Bronchitis Patient Disposition: Home, Self-Care Instructions: Acute Bronchitis (ED) Additional Instructions: Please follow-up with your primary care physician tomorrow. If you have any wor sening or new symptoms, please return to the emergency room or call 911 Prescriptions: New doxycycline hyclate 100 mg capsule 100 mg PO BID Qty: 14 0RF No Action lorazepam [Ativan] 1 mg tablet 1 tab PO BEDTIME melatonin 5 mg capsule 2 cap PO BEDTIME mirtazapine 15 mg Tablet 15 mg PO BEDTIME atorvastatin 40 mg Tablet 40 mg PO BEDTIME gabapentin 400 mg Capsule 400 mg TID pantoprazole 40 mg Tablet,Delayed Release (Dr/Ec) 40 mg PO DAILY@1630 metoprolol tartrate 50 mg Tablet 50 mg PO BID Rx Instructions: HOLD IF SBP < 100 OR > 140 HOLD IF HR < 60 OR > 100 cetirizine 10 mg Tablet 10 mg PO DAILY docusate sodium 100 mg Capsule 100 mg PO BID furosemide 20 mg Tablet 20 mg PO DAILY PRN (Reason: fluid overload) Rx Instructions: NEEDED FOR WEIGHT GAIN > 3 POUNDS finasteride 5 mg Tablet 5 mg PO DAILY Xarelto 20 mg Tablet 20 mg PO BEDTIME Rx Instructions: must administer with evening meal midodrine 5 mg tablet 1 tab PO TIDAC azelastine 0.05 % Drops 1 drp OPHTHALMIC (EYE) Q12H PRN (Reason: Allergy Symptoms) acetaminophen 325 mg Tablet 650 mg PO TID albuterol sulfate 2.5 mg /3 mL (0.083 %) Solution For Nebulization 2.5 mg INHALATION Q8H PRN (Reason: Shortness Of Breath) polyvinyl alcohol 1.4 % Drops 1 drp OPHTHALMIC (EYE) DAILY sertraline 100 mg Tablet 100 mg PO DAILY Rx Instructions: tdd = 150 mg pseudoephedrine-guaifenesin [Mucus D] 60-600 mg Tablet Extended Release 12 Hr 1 tab PO BID PRN (Reason: Congestion) lamotrigine [Lamictal] 25 mg Tablet 25 mg PO BEDTIME Rx Instructions: tdd = 125 mg Biofreeze (menthol) 4 % Gel 1 appl TOPICAL BID Rx Instructions: apply a thin layer mid to lower back Biofreeze (menthol) 4 % Gel 1 appl TOPICAL Q2H PRN (Reason: Pain (Scale Score 1-3)) Rx Instructions: apply to mid lower back calcium carbonate 430 mg calcium (1,000 mg) Tablet,Chewable 430 mg PO Q8H PRN (Reason: Indigestion) tramadol 100 mg Tablet 100 mg PO Q6H PRN (Reason: Back Pain) furosemide 20 mg Tablet 20 mg PO DAILY Rx Instructions: HOLD FOR SBP< 100 OR > 140 HOLD IF HR < 60 OR > 100 lamotrigine [Lamictal] 100 mg Tablet 100 mg PO BEDTIME Rx Instructions: TAKE TOGETHER WITH 25 MG TAB TDD= 125 MG buspirone 15 mg tablet 1 tab PO TID budesonide-formoterol [Symbicort] 160-4.5 mcg/actuation Hfa Aerosol Inhaler 2 puff INHALATION BID baclofen 20 mg Tablet 20 mg PO BID sennosides [senna] 8.6 mg Tablet 8.6 mg PO BID Rx Instructions: HOLD FOR LOOSE BOWEL MOVEMENT Incruse Ellipta 62.5 mcg/actuation Blister With Device 1 inh INHALATION DAILY acetaminophen 325 mg Tablet 650 mg PO DAILY PRN (Reason: HEADACHE, fEVER > 100.4, BODY ACHES ) haloperidol 5 mg Tablet 5 mg PO TID Qty: 90 0RF lorazepam [Ativan] 0.5 mg tablet 0.5 mg PO BID PRN (Reason: anxiety) Qty: 30 0RF magnesium hydroxide [Milk of Magnesia] 400 mg/5 mL Suspension 30 ml PO DAILY PRN (Reason: Constipation) miconazole nitrate 2 % Ointment 1 appl TOPICAL BEDTIME PRN (Reason: skin integrity) bisacodyl 10 mg Suppository 10 mg ME BID PRN (Reason: Constipation) olanzapine 10 mg tablet 10 mg PO Q8H PRN (Reason: agitation) prednisone 20 mg Tablet 40 mg PO DAILY Qty: 10 0RF cefuroxime axetil 500 mg tablet 500 mg PO BID Qty: 10 0RF lactulose 10 gram/15 mL (15 mL) solution 10 g PO BEDTIME PRN (Reason: laxative effect) Qty: 120 0RF
[2022-10-07 00:27] LABS: Basophils Absolute Auto 0.1 X10*3/uL (0.0-0.2); Basophils Percent Auto 0.5 % (0-2); Eosinophils Absolute Auto 0.1 X10*3/uL (0.0-0.4); Eosinophils Percent Auto 1.1 % (0-4); Hematocrit 38.4 % (42.0-52.0); Hemoglobin 12.4 g/dl (14.0-18.0); Imm Gran Abs Auto 0.08 X10*3/uL (0.00-0.03); Imm Gran Pct Auto 0.7 % (0.0-0.4); Lymphocytes Absolute Auto 4.3 X10*3/uL (1.2-4.9); Lymphocytes Percent Auto 35.5 % (20-40); MANUAL DIFF FLAG NO; Mean Corpuscular HGB Conc 32.3 g/dl (31.0-36.0); Mean Corpuscular Hemoglobin 29.2 pg (27.0-33.0); Mean Corpuscular Volume 90.6 fL (80.0-98.0); Mean Platelet Volume 9.4 fL (9.4-12.4); Monocytes Absolute Auto 0.7 X10*3/uL (0.1-1.2); Monocytes Percent Auto 5.9 % (2-11); Neutrophils Absolute Auto 6.9 x10*3/uL (2.0-8.3); Neutrophils Percent Auto 56.3 % (45-73); Platelet Count 244 X10*3/uL (160-400); Red Blood Count 4.24 X10*6/uL (4.60-5.80); Red Cell Distribution Width 14.3 % (11.0-16.0); White Blood Count 12.2 X10*3/uL (4.8-10.8)
[2022-10-07 00:30] LABS: VBG Base Excess 6.7 mmol/L; VBG HCO3 31 mmol/L (22-26); VBG pCO2 45 mmHg; VBG pH 7.45 (7.32-7.43); VBG pO2 58 mmHg
[2022-10-07 00:31] LABS: Venous Blood Gas Refer to POC result
[2022-10-07 00:33] LABS: Prothrombin Time 24.1 SEC (10.0-13.1)
[2022-10-07 00:38] LABS: Lactic Acid 1.2 mmol/L (0.5-2.0)
[2022-10-07 00:49] LABS: Alanine Aminotransferase 17 U/L (0-40); Albumin Level 3.9 g/dL (3.5-5.0); Alkaline Phosphatase 140 U/L (39-117); Anion Gap 9 (12-20); Aspartate Amino Transferase 12 U/L (5-37); Bilirubin Direct 0.2 mg/dL (0.0-0.5); Bilirubin Total 0.5 mg/dL (0.0-1.0); Blood Urea Nitrogen 13 mg/dL (9-16); Carbon Dioxide 32 mmol/L (22-29); Chloride 106 mmol/L (96-108); Creatinine Clr Calc Pharmacy 145.4; Estimated Glomerular Filt Rate > 60; Glucose Random 95 mg/dL (60-115); Potassium 3.2 mmol/L (3.3-5.1); Sodium 144 mmol/L (135-145); Total Protein 5.9 g/dL (6.5-8.0)
[2022-10-07 00:55] LABS: B Type Natriuretic Peptide 74 pg/mL (<100)
[2022-10-07 00:59] LABS: Troponin-I High Sensitivity < 2.7 ng/L (<3.5-35.0)
[2022-10-07] MEDS: Potassium Chloride Packet 20 MEQ PACKET 40 MEQ PO (01:22)
[2022-10-07] MEDS: Doxycycline Monohydrate 100 MG CAPSULE PO (01:22)
[2022-10-07 01:54] VITALS: BP 126/80; PULSE 89; RESP 20; O2SAT 95
--- NOTE | 2022-10-07 03:05 | PC.NURSE ---
Attempted to call senior care staff. No answer. Will attempt at a later time.
--- NOTE | 2022-10-07 03:31 | PC.NURSE ---
Report to Elsa at care home. Sound Controller to arrange transport shortly.
--- NOTE | 2022-10-07 04:32 | MHC.EDTECH ---
call out to bonita at 4:25 for transport back to [address]
[2022-10-07 04:41] VITALS: PULSE 79; RESP 20; O2SAT 96
== END 2022-10-07 05:04 | disposition home or self-care (01) ==
PROVIDERS: Emergency Provider Emergency Medicine; PCP Family Medicine
DX: J40 Bronchitis, not specified as acute or chronic (principal); R06.02 Shortness of breath; R07.89 Other chest pain; Z87.891 Personal history of nicotine dependence; Z79.899 Other long term (current) drug therapy
CPT/HCPCS: 36415; 71045; 80048; 80076; 82803; 83605; 83880; 84484; 85025; 85610; 87040; 93005; 99284

== ENCOUNTER 2022-10-07 19:47 | Emergency (ER) | payer OTHER, SELFPAY ==
--- NOTE | 2022-10-07 | ECG_ITS ---
Test Reason : CHEST PAIN Blood Pressure : / mmHG Vent. Rate : 068 BPM Atrial Rate : 000 BPM P-R Int : 000 ms QRS Dur : 084 ms QT Int : 424 ms P-R-T Axes : 000 007 008 degrees QTc Int : 450 ms Atrial fibrillation Low voltage QRS Cannot rule out Anterior infarct , age undetermined Abnormal ECG When compared with ECG of 07-OCT-2022 00:04, Nonspecific T wave abnormality, worse in Inferior leads Nonspecific T wave abnormality no longer evident in Anterior leads Referred By: Generic ED Physician Electronically Signed By:JAGDISH LIU MD
[2022-10-07 20:00] VITALS: BP 121/80; BP 127/83; PULSE 75; PULSE 82; RESP 19; TEMP 37.4; O2SAT 96; BMI 29.0
--- NOTE | 2022-10-07 20:37 | ED.CHESTPAIN ---
HPI - Chest Pain General Chief Complaint: Chest Pain Stated Complaint: CP Time Seen by Provider: 10/07/22 20:23 Source: patient Mode of arrival: EMS Limitations: no limitations History of Present Illness HPI narrative: Patient from nursing home with history of left hemiparesis does not like the nursing home was seen earlier today and discharged comes back again for the same right-sided chest pain patient going on for a while patient has been to the ER 6 times at least in last month for same. Related Data Home Medications Medication Instructions Recorded Confirmed atorvastatin 40 mg tablet 40 mg PO BEDTIME 02/28/22 08/05/22 gabapentin 400 mg capsule 400 mg TID 02/28/22 08/05/22 lorazepam 1 mg tablet (Ativan) 1 tab PO BEDTIME 02/28/22 08/05/22 melatonin 5 mg capsule 2 cap PO BEDTIME 02/28/22 08/05/22 metoprolol tartrate 50 mg tablet 50 mg PO BID 02/28/22 08/05/22 mirtazapine 15 mg tablet 15 mg PO BEDTIME 02/28/22 08/05/22 pantoprazole 40 mg tablet,delayed 40 mg PO DAILY@1630 02/28/22 08/05/22 release cetirizine 10 mg tablet 10 mg PO DAILY 03/01/22 08/05/22 docusate sodium 100 mg capsule 100 mg PO BID 03/01/22 08/05/22 finasteride 5 mg tablet 5 mg PO DAILY 03/01/22 08/05/22 furosemide 20 mg tablet 20 mg PO DAILY PRN fluid overload 03/01/22 08/05/22 midodrine 5 mg tablet 1 tab PO TIDAC 03/01/22 08/05/22 rivaroxaban 20 mg tablet (Xarelto) 20 mg PO BEDTIME 03/01/22 08/05/22 acetaminophen 325 mg tablet 650 mg PO TID 03/28/22 08/05/22 albuterol sulfate 2.5 mg/3 mL 2.5 mg inhalation Q8H PRN 03/28/22 08/05/22 (0.083 %) solution for nebulization Shortness Of Breath azelastine 0.05 % eye drops 1 drp ophthalmic (eye) Q12H PRN 03/28/22 08/05/22 Allergy Symptoms calcium carbonate 430 mg calcium 430 mg PO Q8H PRN Indigestion 03/28/22 08/05/22 (1,000 mg) chewable tablet furosemide 20 mg tablet 20 mg PO DAILY 03/28/22 08/05/22 lamotrigine 100 mg tablet 100 mg PO BEDTIME 03/28/22 08/05/22 (Lamictal) lamotrigine 25 mg tablet (Lamictal) 25 mg PO BEDTIME 03/28/22 08/05/22 menthol 4 % topical gel (Biofreeze 1 appl topical BID 03/28/22 08/05/22 (menthol)) menthol 4 % topical gel (Biofreeze 1 appl topical Q2H PRN Pain (Scale 03/28/22 08/05/22 (menthol)) Score 1-3) polyvinyl alcohol 1.4 % eye drops 1 drp ophthalmic (eye) DAILY 03/28/22 08/05/22 pseudoephedrine-guaifenesin ER 60 1 tab PO BID PRN Congestion 03/28/22 08/05/22 mg-600 mg tablet,extend release 12hr (Mucus D) sertraline 100 mg tablet 100 mg PO DAILY 03/28/22 08/05/22 tramadol 100 mg tablet 100 mg PO Q6H PRN Back Pain 03/28/22 08/05/22 acetaminophen 325 mg tablet 650 mg PO DAILY PRN HEADACHE, 07/17/22 08/05/22 fEVER > 100.4, BODY ACHES baclofen 20 mg tablet 20 mg PO BID 07/17/22 08/05/22 budesonide-formoterol HFA 160 2 puff inhalation BID 07/17/22 08/05/22 mcg-4.5 mcg/actuation aerosol inhaler (Symbicort) buspirone 15 mg tablet 1 tab PO TID 07/17/22 08/05/22 sennosides 8.6 mg tablet (senna) 8.6 mg PO BID 07/17/22 08/05/22 umeclidinium 62.5 mcg/actuation 1 inh inhalation DAILY 07/17/22 08/05/22 blister powder for inhalation (Incruse Ellipta) bisacodyl 10 mg rectal suppository 10 mg TN BID PRN Constipation 08/05/22 08/05/22 magnesium hydroxide 400 mg/5 mL 30 ml PO DAILY PRN Constipation 08/05/22 08/05/22 oral suspension (Milk of Magnesia) miconazole nitrate 2 % topical 1 appl topical BEDTIME PRN skin 08/05/22 08/05/22 ointment integrity olanzapine 10 mg tablet 10 mg PO Q8H PRN agitation 08/05/22 08/05/22 Previous Rx's Medication Instructions Recorded haloperidol 5 mg tablet 5 mg PO TID #90 tabs 07/23/22 lorazepam 0.5 mg tablet (Ativan) 0.5 mg PO BID PRN anxiety #30 tabs 07/23/22 cefuroxime axetil 500 mg tablet 500 mg PO BID #10 tabs 08/07/22 prednisone 20 mg tablet 40 mg PO DAILY #10 tabs 08/07/22 lactulose 10 gram/15 mL (15 mL) 10 g (15 mL) PO BEDTIME PRN 09/25/22 oral solution laxative effect #120 mL doxycycline hyclate 100 mg capsule 100 mg PO BID #14 caps 10/07/22 Allergies Allergy/AdvReac Type Severity Reaction Status Date / Time No Known Allergies Allergy Verified 09/12/22 17:33 Review of Systems Review of Systems: Yes all other systems are reviewed and are negative PMFSH Past Medical History Medical History Afib Anxiety disorder CHF (congestive heart failure) Cognitive disorder COPD (chronic obstructive pulmonary disease) CVA (cerebrovascular accident) Mood disorder as late effect of traumatic brain injury Traumatic brain injury Social History Social History Household Members: Unknown / Unable to assess Housing: Other Housing Other:: nursing home Unable to assess alcohol history related to: Unable to respond Alcohol intake: never Patient Tobacco Use Status: Former Tobacco user Substance Use Type: Unknown Advance Directives: Yes Advance Directives on File: Yes Advance Directives Date on File: 11/11/21 service: No Current occupational status: disabled Physical Exam Vital Signs: Vital Signs: Last Vital Signs Temp 99.3 F 10/07/22 20:00 Pulse 74 10/07/22 21:56 Resp 20 10/07/22 21:56 BP 127/83 10/07/22 20:00 Pulse Ox 96 10/07/22 21:56 O2 Del Method Nasal Cannula 10/07/22 20:00 O2 Flow Rate 2 10/07/22 21:56 BMI result Body Mass Index 29.0 Appearance: Alert. Oriented X3. No acute distress. Eyes: PERRLA, No Nystagmus ENT: Pharynx normal. Oral Mucosa moist Neck: Normal inspection. Neck supple. CVS: Irregularly regular heart rate. Pulses normal. Respiratory: No respiratory distress. Equal air entry bilateral, no wheezing/rales/rhonchi tender to touch right side of the chest Abdomen: Soft and nontender. Bowel sounds are present, no mass palpable, no CVA tenderness Skin: Skin warm and dry. Normal skin color. Normal skin turgor. Extremities: No lower extremity edema. No calf tenderness Neuro: Oriented X 3. Residual left hemiparesis No sensory deficit.No cerebellar signs , cranial nerves II-XII intact Medications Administered Discontinued Medications Generic Name Dose Route Start Last Admin Trade Name Freq PRN Reason Stop Dose Admin Lidocaine 1 patch 10/07/22 20:38 10/07/22 21:14 Lidocaine 4 % Patch Adh..Patch TRANSDERMA 10/07/22 20:39 1 patch ONCE ONE Administration Protocol Medical Decision Making Medical Decision Making [facility] Narrative: Patient with social issues noncardiac chest pain discharge patient back to nursing home Independent Interpretation I performed an independent interpretation of an: EKG Interpretation: Atrial fibrillation heart rate is 68 beats per minute no acute ST changes no acute ischemic changes Discharge Plan Discharge Clinical Impression: Chest wall pain Patient Disposition: Xfer LTC Transfer Details: Chronic musculoskeletal pain, Tylenol for pain Continue pain medications and Biofreeze Instructions: Chest Wall Pain (ED) Additional Instructions: Chronic musculoskeletal pain, Tylenol for pain Continue pain medications and Biofreeze Prescriptions: No Action lorazepam [Ativan] 1 mg tablet 1 tab PO BEDTIME melatonin 5 mg capsule 2 cap PO BEDTIME mirtazapine 15 mg Tablet 15 mg PO BEDTIME atorvastatin 40 mg Tablet 40 mg PO BEDTIME gabapentin 400 mg Capsule 400 mg TID pantoprazole 40 mg Tablet,Delayed Release (Dr/Ec) 40 mg PO DAILY@1630 metoprolol tartrate 50 mg Tablet 50 mg PO BID Rx Instructions: HOLD IF SBP < 100 OR > 140 HOLD IF HR < 60 OR > 100 cetirizine 10 mg Tablet 10 mg PO DAILY docusate sodium 100 mg Capsule 100 mg PO BID furosemide 20 mg Tablet 20 mg PO DAILY PRN (Reason: fluid overload) Rx Instructions: NEEDED FOR WEIGHT GAIN > 3 POUNDS finasteride 5 mg Tablet 5 mg PO DAILY Xarelto 20 mg Tablet 20 mg PO BEDTIME Rx Instructions: must administer with evening meal midodrine 5 mg tablet 1 tab PO TIDAC azelastine 0.05 % Drops 1 drp OPHTHALMIC (EYE) Q12H PRN (Reason: Allergy Symptoms) acetaminophen 325 mg Tablet 650 mg PO TID albuterol sulfate 2.5 mg /3 mL (0.083 %) Solution For Nebulization 2.5 mg INHALATION Q8H PRN (Reason: Shortness Of Breath) polyvinyl alcohol 1.4 % Drops 1 drp OPHTHALMIC (EYE) DAILY sertraline 100 mg Tablet 100 mg PO DAILY Rx Instructions: tdd = 150 mg pseudoephedrine-guaifenesin [Mucus D] 60-600 mg Tablet Extended Release 12 Hr 1 tab PO BID PRN (Reason: Congestion) lamotrigine [Lamictal] 25 mg Tablet 25 mg PO BEDTIME Rx Instructions: tdd = 125 mg Biofreeze (menthol) 4 % Gel 1 appl TOPICAL BID Rx Instructions: apply a thin layer mid to lower back Biofreeze (menthol) 4 % Gel 1 appl TOPICAL Q2H PRN (Reason: Pain (Scale Score 1-3)) Rx Instructions: apply to mid lower back calcium carbonate 430 mg calcium (1,000 mg) Tablet,Chewable 430 mg PO Q8H PRN (Reason: Indigestion) tramadol 100 mg Tablet 100 mg PO Q6H PRN (Reason: Back Pain) furosemide 20 mg Tablet 20 mg PO DAILY Rx Instructions: HOLD FOR SBP< 100 OR > 140 HOLD IF HR < 60 OR > 100 lamotrigine [Lamictal] 100 mg Tablet 100 mg PO BEDTIME Rx Instructions: TAKE TOGETHER WITH 25 MG TAB TDD= 125 MG buspirone 15 mg tablet 1 tab PO TID budesonide-formoterol [Symbicort] 160-4.5 mcg/actuation Hfa Aerosol Inhaler 2 puff INHALATION BID baclofen 20 mg Tablet 20 mg PO BID sennosides [senna] 8.6 mg Tablet 8.6 mg PO BID Rx Instructions: HOLD FOR LOOSE BOWEL MOVEMENT Incruse Ellipta 62.5 mcg/actuation Blister With Device 1 inh INHALATION DAILY acetaminophen 325 mg Tablet 650 mg PO DAILY PRN (Reason: HEADACHE, fEVER > 100.4, BODY ACHES ) haloperidol 5 mg Tablet 5 mg PO TID Qty: 90 0RF lorazepam [Ativan] 0.5 mg tablet 0.5 mg PO BID PRN (Reason: anxiety) Qty: 30 0RF magnesium hydroxide [Milk of Magnesia] 400 mg/5 mL Suspension 30 ml PO DAILY PRN (Reason: Constipation) miconazole nitrate 2 % Ointment 1 appl TOPICAL BEDTIME PRN (Reason: skin integrity) bisacodyl 10 mg Suppository 10 mg TN BID PRN (Reason: Constipation) olanzapine 10 mg tablet 10 mg PO Q8H PRN (Reason: agitation) prednisone 20 mg Tablet 40 mg PO DAILY Qty: 10 0RF cefuroxime axetil 500 mg tablet 500 mg PO BID Qty: 10 0RF lactulose 10 gram/15 mL (15 mL) solution 10 g PO BEDTIME PRN (Reason: laxative effect) Qty: 120 0RF doxycycline hyclate 100 mg capsule 100 mg PO BID Qty: 14 0RF Interventions: ED Discharge Assessment Last Done: 10/07/22 22:10 Discharge Date/Time: 10/07/22 22:12
--- NOTE | 2022-10-07 20:46 | PC.NURSE ---
Pt A&O to self, reports 8/10 constant pressure feeling chest pain radiating to right side and down ABD starting today. Pt placed on bedside monitor, a-fib noted with rate of 82, EKG obtained and reviewed by provider. VSS.
--- NOTE | 2022-10-07 21:13 | MHC.CM.ED ---
CM met with patient at request of Dr. Dallas. Pt is refusing to go back to [facility]. Wants to live somewhere else. States he feels unsafe and people are mean to him. AMAURY explained to patient that he lives in the [facility] and I Spoke with Elsa at the [facility] who assures me he is safe and that no one is mean to him. Elsa states the patient always thinks people are mean to him. [facility] is accepting patient back. Patient is upset. States he won't go. Pt has invoked HCP. Pt is requesting to speak with Elsa. Telephone call made. Pt spoke with Elsa at [facility] for several minutes. Pt is much calmer and agreeable to return. Pt has been medically cleared. Ambulance booked.
[2022-10-07] MEDS: Lidocaine 4 % Patch ADH..PATCH 1 PATCH TRANSDERMA (21:14)
--- NOTE | 2022-10-07 21:15 | PC.NURSE ---
Pt incontinent of stool, incontinent care provided by two staff assist. Warm blankets provided. Lidocaine patch applied to right side of chest.
--- NOTE | 2022-10-07 21:51 | MHC.EDTECH ---
Call out to Delia @[id number] for a BLS transfer back to half-way per .ETA within the hour.RN aware
[2022-10-07 21:56] VITALS: PULSE 74; RESP 20; O2SAT 96
== END 2022-10-07 22:12 ==
PROVIDERS: Emergency Provider Internal Medicine
DX: R07.89 Other chest pain (principal)
CPT/HCPCS: 93005; 99283; 99284

== ENCOUNTER 2022-10-10 18:27 | Emergency (ER) | payer OTHER, SELFPAY ==
--- NOTE | ~2022-10-10 | CT_ITS ---
EXAMINATION: CT HEAD WITHOUT CONTRAST CLINICAL INFORMATION: Fall. Patient on blood thinners. COMPARISON: CT head from 04/04/2022. TECHNIQUE: Contiguous axial imaging was performed from the skull base to vertex without intravenous administration of contrast. This CT examination was performed using dose optimization techniques as appropriate, variously including the following: *Automated exposure control. *Adjustment of mA and/or kV according to patient size (this includes techniques or standardized protocols for targeted exams where dose is matched to indication/reason for exam; i.e. extremities or head). *Use of iterative reconstruction technique. DLP: 813 mGy-cm FINDINGS: Changes of prior right hemispheric craniotomy. Chronic small extradural collection subjacent to the craniotomy flap. 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 No evidence of acute intracranial hemorrhage or edematous territorial infarction. A few foci of hypoattenuation in the periventricular and deep white matter are consistent with mild microangiopathy. Ex vacuo dilatation of the right lateral ventricle. Otherwise, proportional prominence of the ventricles and sulcal spaces without evidence of obstructive hydrocephalus. No abnormal mass effect or midline shift. No extra-axial fluid collections. No acute soft tissue or osseous abnormalities. Mild mucosal thickening of the paranasal sinuses. The mastoid air cells and middle ear cavities are clear. CT/CT head/brain wo IV con IMPRESSION: 1. No evidence of acute intracranial hemorrhage or edematous territorial infarction. 2. Chronic cystic encephalomalacia throughout nearly the entirety of the right MCA territory.
--- NOTE | ~2022-10-10 | XR_ITS ---
EXAMINATION: XR HIP, LEFT CLINICAL INFORMATION: Pain after fall. COMPARISON: No similar priors. TECHNIQUE: Two views of the left hip. FINDINGS: No acute fractures or malalignment. 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 SI joints are symmetric. Pubic symphysis is maintained. Small pelvic phlebolith noted. XR/XR hip LT w PEL1V IMPRESSION: No acute fractures or malalignment.
[2022-10-10 18:34] VITALS: BP 136/94; BP 150/100; PULSE 73; PULSE 80; RESP 16; TEMP 36.9; O2SAT 95; BMI 28.4
[2022-10-10 18:41] VITALS: BP 136/90; PULSE 78; RESP 15; O2SAT 97
--- NOTE | 2022-10-10 18:56 | ECG_ITS ---
Test Reason : FALL Blood Pressure : / mmHG Vent. Rate : 083 BPM Atrial Rate : 000 BPM P-R Int : 000 ms QRS Dur : 084 ms QT Int : 402 ms P-R-T Axes : 000 000 013 degrees QTc Int : 472 ms Atrial fibrillation Nonspecific ST and T wave abnormality Abnormal ECG When compared with ECG of 07-OCT-2022 20:05, No significant change was found Referred By: Sigrid Morris Electronically Signed By:JAGDISH LIU MD
[2022-10-10 19:25] LABS: MANUAL DIFF FLAG NO
[2022-10-10 19:33] LABS: Basophils Absolute Auto 0.1 X10*3/uL (0.0-0.2); Basophils Percent Auto 0.6 % (0-2); Eosinophils Absolute Auto 0.1 X10*3/uL (0.0-0.4); Eosinophils Percent Auto 0.6 % (0-4); Hemoglobin 12.4 g/dl (14.0-18.0); Imm Gran Abs Auto 0.05 X10*3/uL (0.00-0.03); Imm Gran Pct Auto 0.5 % (0.0-0.4); Lymphocytes Absolute Auto 3.5 X10*3/uL (1.2-4.9); Lymphocytes Percent Auto 35.9 % (20-40); Mean Corpuscular HGB Conc 32.6 g/dl (31.0-36.0); Mean Corpuscular Hemoglobin 29.7 pg (27.0-33.0); Mean Corpuscular Volume 91.1 fL (80.0-98.0); Mean Platelet Volume 9.7 fL (9.4-12.4); Monocytes Absolute Auto 0.4 X10*3/uL (0.1-1.2); Neutrophils Absolute Auto 5.7 x10*3/uL (2.0-8.3); Neutrophils Percent Auto 58.4 % (45-73); Platelet Count 259 X10*3/uL (160-400); Red Blood Count 4.17 X10*6/uL (4.60-5.80); Red Cell Distribution Width 13.9 % (11.0-16.0); White Blood Count 9.7 X10*3/uL (4.8-10.8)
[2022-10-10 19:43] LABS: INTERNATIONAL NORM RATIO 1.4 (0.9-1.1); Prothrombin Time 16.7 SEC (10.0-13.1)
[2022-10-10 19:55] LABS: Alanine Aminotransferase 16 U/L (0-40); Albumin Level 3.9 g/dL (3.5-5.0); Alkaline Phosphatase 130 U/L (39-117); Anion Gap 12 (12-20); Aspartate Amino Transferase 13 U/L (5-37); Bilirubin Total 0.6 mg/dL (0.0-1.0); Blood Urea Nitrogen 17 mg/dL (9-16); Calcium 9.2 mg/dL (8.4-10.2); Carbon Dioxide 27 mmol/L (22-29); Chloride 106 mmol/L (96-108); Creatinine Clr Calc Pharmacy 142.8; Estimated Glomerular Filt Rate > 60; Glucose Random 98 mg/dL (60-115); Potassium 3.3 mmol/L (3.3-5.1); Sodium 142 mmol/L (135-145); Total Protein 5.9 g/dL (6.5-8.0)
--- NOTE | 2022-10-10 20:31 | ED_ITS ---
HPI - Fall General Chief Complaint: Fall Stated Complaint: fall out of wheelchair buttock pain, from SNF Time Seen by Provider: 10/10/22 18:55 Source: patient and EMS Mode of arrival: EMS History of Present Illness HPI Narrative: 57-year-old male brought in from senior care after he fell out of his wheelchair in is on anticoagulation. Patient is reporting left leg tingling and tailbone pain. Otherwise there are no acute complaints. Related Data Home Medications Medication Instructions Recorded Confirmed atorvastatin 40 mg tablet 40 mg PO BEDTIME 02/28/22 08/05/22 gabapentin 400 mg capsule 400 mg TID 02/28/22 08/05/22 lorazepam 1 mg tablet (Ativan) 1 tab PO BEDTIME 02/28/22 08/05/22 melatonin 5 mg capsule 2 cap PO BEDTIME 02/28/22 08/05/22 metoprolol tartrate 50 mg tablet 50 mg PO BID 02/28/22 08/05/22 mirtazapine 15 mg tablet 15 mg PO BEDTIME 02/28/22 08/05/22 pantoprazole 40 mg tablet,delayed 40 mg PO DAILY@1630 02/28/22 08/05/22 release cetirizine 10 mg tablet 10 mg PO DAILY 03/01/22 08/05/22 docusate sodium 100 mg capsule 100 mg PO BID 03/01/22 08/05/22 finasteride 5 mg tablet 5 mg PO DAILY 03/01/22 08/05/22 furosemide 20 mg tablet 20 mg PO DAILY PRN fluid overload 03/01/22 08/05/22 midodrine 5 mg tablet 1 tab PO TIDAC 03/01/22 08/05/22 rivaroxaban 20 mg tablet (Xarelto) 20 mg PO BEDTIME 03/01/22 08/05/22 acetaminophen 325 mg tablet 650 mg PO TID 03/28/22 08/05/22 albuterol sulfate 2.5 mg/3 mL 2.5 mg inhalation Q8H PRN 03/28/22 08/05/22 (0.083 %) solution for nebulization Shortness Of Breath azelastine 0.05 % eye drops 1 drp ophthalmic (eye) Q12H PRN 03/28/22 08/05/22 Allergy Symptoms calcium carbonate 430 mg calcium 430 mg PO Q8H PRN Indigestion 03/28/22 08/05/22 (1,000 mg) chewable tablet furosemide 20 mg tablet 20 mg PO DAILY 03/28/22 08/05/22 lamotrigine 100 mg tablet 100 mg PO BEDTIME 03/28/22 08/05/22 (Lamictal) lamotrigine 25 mg tablet (Lamictal) 25 mg PO BEDTIME 03/28/22 08/05/22 menthol 4 % topical gel (Biofreeze 1 appl topical BID 03/28/22 08/05/22 (menthol)) menthol 4 % topical gel (Biofreeze 1 appl topical Q2H PRN Pain (Scale 03/28/22 08/05/22 (menthol)) Score 1-3) polyvinyl alcohol 1.4 % eye drops 1 drp ophthalmic (eye) DAILY 03/28/22 08/05/22 pseudoephedrine-guaifenesin ER 60 1 tab PO BID PRN Congestion 03/28/22 08/05/22 mg-600 mg tablet,extend release 12hr (Mucus D) sertraline 100 mg tablet 100 mg PO DAILY 03/28/22 08/05/22 tramadol 100 mg tablet 100 mg PO Q6H PRN Back Pain 03/28/22 08/05/22 acetaminophen 325 mg tablet 650 mg PO DAILY PRN HEADACHE, 07/17/22 08/05/22 fEVER > 100.4, BODY ACHES baclofen 20 mg tablet 20 mg PO BID 07/17/22 08/05/22 budesonide-formoterol HFA 160 2 puff inhalation BID 07/17/22 08/05/22 mcg-4.5 mcg/actuation aerosol inhaler (Symbicort) buspirone 15 mg tablet 1 tab PO TID 07/17/22 08/05/22 sennosides 8.6 mg tablet (senna) 8.6 mg PO BID 07/17/22 08/05/22 umeclidinium 62.5 mcg/actuation 1 inh inhalation DAILY 07/17/22 08/05/22 blister powder for inhalation (Incruse Ellipta) bisacodyl 10 mg rectal suppository 10 mg ME BID PRN Constipation 08/05/22 08/05/22 magnesium hydroxide 400 mg/5 mL 30 ml PO DAILY PRN Constipation 08/05/22 08/05/22 oral suspension (Milk of Magnesia) miconazole nitrate 2 % topical 1 appl topical BEDTIME PRN skin 08/05/22 08/05/22 ointment integrity olanzapine 10 mg tablet 10 mg PO Q8H PRN agitation 08/05/22 08/05/22 Previous Rx's Medication Instructions Recorded haloperidol 5 mg tablet 5 mg PO TID #90 tabs 07/23/22 lorazepam 0.5 mg tablet (Ativan) 0.5 mg PO BID PRN anxiety #30 tabs 07/23/22 cefuroxime axetil 500 mg tablet 500 mg PO BID #10 tabs 08/07/22 prednisone 20 mg tablet 40 mg PO DAILY #10 tabs 08/07/22 lactulose 10 gram/15 mL (15 mL) 10 g (15 mL) PO BEDTIME PRN 09/25/22 oral solution laxative effect #120 mL doxycycline hyclate 100 mg capsule 100 mg PO BID #14 caps 10/07/22 Allergies Allergy/AdvReac Type Severity Reaction Status Date / Time No Known Allergies Allergy Verified 09/12/22 17:33 Review of Systems Review of Systems: Pertinent positives and negatives as stated in [facility] Past Medical History Source: nursing notes reviewed Medical History Afib Anxiety disorder CHF (congestive heart failure) Cognitive disorder COPD (chronic obstructive pulmonary disease) CVA (cerebrovascular accident) Mood disorder as late effect of traumatic brain injury Traumatic brain injury Social History Social History Household Members: Unknown / Unable to assess Housing: Other Housing Other:: senior care Unable to assess alcohol history related to: Unable to respond Alcohol intake: current Alcohol intake frequency: holidays/special occasions only Patient Tobacco Use Status: Former Tobacco user Smoked in Last 30 Days: No Use of substances other than those prescribed or required for medical reasons: No Substance Use Type: Unknown Advance Directives Date on File: 11/11/21 service: No Current occupational status: disabled Physical Exam Vital Signs: Vital Signs: Last Vital Signs Temp 98.4 F 10/10/22 18:34 Pulse 78 10/10/22 18:41 Resp 15 10/10/22 18:41 BP 136/90 H 10/10/22 18:41 Pulse Ox 97 10/10/22 18:41 O2 Del Method Nasal Cannula 10/10/22 18:41 O2 Flow Rate 2 10/10/22 18:41 Oxygen Flow Rate 2 10/10/22 18:34 BMI result Body Mass Index 28.4 VITAL SIGNS: Reviewed. GENERAL: Well developed, well nourished, in no acute distress. HEAD: Normocephalic/atraumatic EYES: PERRLA, EOMI EARS: Ext canals without abnormality OROPHARYNX: no oral lesions noted, posterior pharynx clear NECK: Supple, no adenopathy LUNGS: Normal breath sounds. No adventitious sounds or accessory muscle use. SpO2<97> CARDIOVASCULAR: Regular rate and rhythm without noted murmurs ABDOMEN: Soft, non-tender, non-distended with bowel sounds. MUSCULOSKELETAL: No tenderness, deformities, or effusions noted on gross inspection. EXTREMITIES: No cyanosis, clubbing or edema. SKIN: Inspection of the skin reveals no rashes NEUROLOGIC: Alert and oriented x 2. Strength and sensation to light touch were grossly intact x 4 at his baseline. Medical Decision Making Medical Decision Making [facility] Narrative: 57-year-old male with history and clinical presentation of fall from wheelchair I reviewed all investigations as well as imaging studies in my interpretation is patient had a benign fall from his wheelchair and is otherwise stable for d ischarge back to the senior care. Differential Diagnosis Please see the discussion above Lab Data Please see the discussion above 10/10/22 19:20 10/10/22 19:19 Labs: Lab Results 10/10/22 10/10/22 10/10/22 Range/Units 19:19 19:20 19:20 WBC 9.7 (4.8-10.8) X10*3/uL RBC 4.17 L (4.60-5.80) X10*6/uL Hgb 12.4 L (14.0-18.0) g/dl Hct 38.0 L (42.0-52.0) % MCV 91.1 (80.0-98.0) fL MCH 29.7 (27.0-33.0) pg MCHC 32.6 (31.0-36.0) g/dl RDW 13.9 (11.0-16.0) % Plt Count 259 (160-400) X10*3/uL MPV 9.7 (9.4-12.4) fL Immature Gran % (Auto) 0.5 H (0.0-0.4) % Neut % (Auto) 58.4 (45-73) % Lymph % (Auto) 35.9 (20-40) % Mower % (Auto) 4.0 (2-11) % Eos % (Auto) 0.6 (0-4) % Baso % (Auto) 0.6 (0-2) % Lymph # (Auto) 3.5 (1.2-4.9) X10*3/uL Mower # (Auto) 0.4 (0.1-1.2) X10*3/uL Eos # (Auto) 0.1 (0.0-0.4) X10*3/uL Baso # (Auto) 0.1 (0.0-0.2) X10*3/uL Abs Immat Gran (auto) 0.05 H (0.00-0.03) X10*3/uL Absolute Neuts (auto) 5.7 (2.0-8.3) x10*3/uL Absolute Nucleated RBC 0.000 (0.0-0.012) X10*3/uL Nucleated RBC % (auto) 0.0 (0.0-0.2) /100WBC PT 16.7 H (10.0-13.1) SEC INR 1.4 H (0.9-1.1) Sodium 142 (135-145) mmol/L Potassium 3.3 (3.3-5.1) mmol/L Chloride 106 (96-108) mmol/L Carbon Dioxide 27 (22-29) mmol/L Anion Gap 12 (12-20) BUN 17 H (9-16) mg/dL Creatinine 0.76 (0.5-1.4) mg/dL Estim Creat Clear Calc 142.8 Estimated GFR > 60 Random Glucose 98 (60-115) mg/dL Calcium 9.2 (8.4-10.2) mg/dL Total Bilirubin 0.6 (0.0-1.0) mg/dL AST 13 (5-37) U/L ALT 16 (0-40) U/L Alkaline Phosphatase 130 H (39-117) U/L Total Protein 5.9 L (6.5-8.0) g/dL Albumin 3.9 (3.5-5.0) g/dL Independent Interpretation I performed an independent interpretation of an: EKG Interpretation: Atrial fibrillation, HR-83, no STEMI, QRS/QTC is within normal limits Radiology Impression Radiologist Impression: My interpretation is in agreement with radiology's impression of the imaging studies. External Record Review External record reviewed: Outpatient record and Prior outpatient labs Discharge Plan Discharge Clinical Impression: Fall Patient Disposition: Xfer Other Instructions: Fall Prevention for Older Adults (ED) Additional Instructions: 1. Resume all home medications as prescribed. 2. Follow-up with primary care provider on Wednesday morning. Return to the ER for any worsening symptoms. Prescriptions: No Action lorazepam [Ativan] 1 mg tablet 1 tab PO BEDTIME melatonin 5 mg capsule 2 cap PO BEDTIME mirtazapine 15 mg Tablet 15 mg PO BEDTIME atorvastatin 40 mg Tablet 40 mg PO BEDTIME gabapentin 400 mg Capsule 400 mg TID pantoprazole 40 mg Tablet,Delayed Release (Dr/Ec) 40 mg PO DAILY@1630 metoprolol tartrate 50 mg Tablet 50 mg PO BID Rx Instructions: HOLD IF SBP < 100 OR > 140 HOLD IF HR < 60 OR > 100 cetirizine 10 mg Tablet 10 mg PO DAILY docusate sodium 100 mg Capsule 100 mg PO BID furosemide 20 mg Tablet 20 mg PO DAILY PRN (Reason: fluid overload) Rx Instructions: NEEDED FOR WEIGHT GAIN > 3 POUNDS finasteride 5 mg Tablet 5 mg PO DAILY Xarelto 20 mg Tablet 20 mg PO BEDTIME Rx Instructions: must administer with evening meal midodrine 5 mg tablet 1 tab PO TIDAC azelastine 0.05 % Drops 1 drp OPHTHALMIC (EYE) Q12H PRN (Reason: Allergy Symptoms) acetaminophen 325 mg Tablet 650 mg PO TID albuterol sulfate 2.5 mg /3 mL (0.083 %) Solution For Nebulization 2.5 mg INHALATION Q8H PRN (Reason: Shortness Of Breath) polyvinyl alcohol 1.4 % Drops 1 drp OPHTHALMIC (EYE) DAILY sertraline 100 mg Tablet 100 mg PO DAILY Rx Instructions: tdd = 150 mg pseudoephedrine-guaifenesin [Mucus D] 60-600 mg Tablet Extended Release 12 Hr 1 tab PO BID PRN (Reason: Congestion) lamotrigine [Lamictal] 25 mg Tablet 25 mg PO BEDTIME Rx Instructions: tdd = 125 mg Biofreeze (menthol) 4 % Gel 1 appl TOPICAL BID Rx Instructions: apply a thin layer mid to lower back Biofreeze (menthol) 4 % Gel 1 appl TOPICAL Q2H PRN (Reason: Pain (Scale Score 1-3)) Rx Instructions: apply to mid lower back calcium carbonate 430 mg calcium (1,000 mg) Tablet,Chewable 430 mg PO Q8H PRN (Reason: Indigestion) tramadol 100 mg Tablet 100 mg PO Q6H PRN (Reason: Back Pain) furosemide 20 mg Tablet 20 mg PO DAILY Rx Instructions: HOLD FOR SBP< 100 OR > 140 HOLD IF HR < 60 OR > 100 lamotrigine [Lamictal] 100 mg Tablet 100 mg PO BEDTIME Rx Instructions: TAKE TOGETHER WITH 25 MG TAB TDD= 125 MG buspirone 15 mg tablet 1 tab PO TID budesonide-formoterol [Symbicort] 160-4.5 mcg/actuation Hfa Aerosol Inhaler 2 puff INHALATION BID baclofen 20 mg Tablet 20 mg PO BID sennosides [senna] 8.6 mg Tablet 8.6 mg PO BID Rx Instructions: HOLD FOR LOOSE BOWEL MOVEMENT Incruse Ellipta 62.5 mcg/actuation Blister With Device 1 inh INHALATION DAILY acetaminophen 325 mg Tablet 650 mg PO DAILY PRN (Reason: HEADACHE, fEVER > 100.4, BODY ACHES ) haloperidol 5 mg Tablet 5 mg PO TID Qty: 90 0RF lorazepam [Ativan] 0.5 mg tablet 0.5 mg PO BID PRN (Reason: anxiety) Qty: 30 0RF magnesium hydroxide [Milk of Magnesia] 400 mg/5 mL Suspension 30 ml PO DAILY PRN (Reason: Constipation) miconazole nitrate 2 % Ointment 1 appl TOPICAL BEDTIME PRN (Reason: skin integrity) bisacodyl 10 mg Suppository 10 mg ME BID PRN (Reason: Constipation) olanzapine 10 mg tablet 10 mg PO Q8H PRN (Reason: agitation) prednisone 20 mg Tablet 40 mg PO DAILY Qty: 10 0RF cefuroxime axetil 500 mg tablet 500 mg PO BID Qty: 10 0RF lactulose 10 gram/15 mL (15 mL) solution 10 g PO BEDTIME PRN (Reason: laxative effect) Qty: 120 0RF doxycycline hyclate 100 mg capsule 100 mg PO BID Qty: 14 0RF
[2022-10-10] MEDS: Acetaminophen 325 MG TABLET 975 MG PO (21:40)
== END 2022-10-10 21:45 | disposition other institution (70) ==
PROVIDERS: Emergency Provider Student in an Organized Health Care Education/Training Program; PCP Family Medicine
DX: R20.2 Paresthesia of skin (principal); Z91.81 History of falling; I48.91 Unspecified atrial fibrillation; Z86.73 Personal history of transient ischemic attack (TIA), and cerebral infarction without residual deficits; Z79.02 Long term (current) use of antithrombotics/antiplatelets; Z79.899 Other long term (current) drug therapy; Z79.01 Long term (current) use of anticoagulants
CPT/HCPCS: 36415; 70450; 73502; 80053; 85025; 85610; 93005; 99285

== ENCOUNTER 2022-10-14 17:24 | Emergency (ER) | payer OTHER, SELFPAY ==
--- NOTE | ~2022-10-14 | XR_ITS ---
EXAMINATION: XR CHEST CLINICAL INFORMATION: Cough COMPARISON: 10/06/2022 TECHNIQUE: Frontal view of the chest was obtained. FINDINGS: Again noted is cardiomegaly and low lung volumes although slightly improved when compared to prior. Mild interstitial prominence with. Atelectasis is present in the left midlung and at the left lung base. An infiltrate cannot be excluded at the left lung base. No pleural effusions. XR/XR chest 1V IMPRESSION: Cardiomegaly with mild interstitial prominence. Atelectasis versus infiltrate left lung base. No pleural effusions.
--- NOTE | 2022-10-14 17:50 | ED.URI ---
HPI - URI/Sore Throat General Chief Complaint: Dyspnea Stated Complaint: COUGH Time Seen by Provider: 10/14/22 17:49 Source: patient and EMS Mode of arrival: EMS Limitations: no limitations History of Present Illness HPI Narrative: Patient is 57 years old with history of AFib on Xarelto, CHF, COPD on oxygen, history of CVA with left-sided hemiparesis, mood disorder with previous TBI been here multiple times at least 10 times in last 1 month comes here for cough started earlier today which is mostly dry not coughing the ER no fever no chest pain or palpitation patient is at baseline was saturating 91% at room air patient is supposed to be on 2 L as needed at correction no distress no fever Related Data Home Medications Medication Instructions Recorded Confirmed atorvastatin 40 mg tablet 40 mg PO BEDTIME 02/28/22 08/05/22 gabapentin 400 mg capsule 400 mg TID 02/28/22 08/05/22 lorazepam 1 mg tablet (Ativan) 1 tab PO BEDTIME 02/28/22 08/05/22 melatonin 5 mg capsule 2 cap PO BEDTIME 02/28/22 08/05/22 metoprolol tartrate 50 mg tablet 50 mg PO BID 02/28/22 08/05/22 mirtazapine 15 mg tablet 15 mg PO BEDTIME 02/28/22 08/05/22 pantoprazole 40 mg tablet,delayed 40 mg PO DAILY@1630 02/28/22 08/05/22 release cetirizine 10 mg tablet 10 mg PO DAILY 03/01/22 08/05/22 docusate sodium 100 mg capsule 100 mg PO BID 03/01/22 08/05/22 finasteride 5 mg tablet 5 mg PO DAILY 03/01/22 08/05/22 furosemide 20 mg tablet 20 mg PO DAILY PRN fluid overload 03/01/22 08/05/22 midodrine 5 mg tablet 1 tab PO TIDAC 03/01/22 08/05/22 rivaroxaban 20 mg tablet (Xarelto) 20 mg PO BEDTIME 03/01/22 08/05/22 acetaminophen 325 mg tablet 650 mg PO TID 03/28/22 08/05/22 albuterol sulfate 2.5 mg/3 mL 2.5 mg inhalation Q8H PRN 03/28/22 08/05/22 (0.083 %) solution for nebulization Shortness Of Breath azelastine 0.05 % eye drops 1 drp ophthalmic (eye) Q12H PRN 03/28/22 08/05/22 Allergy Symptoms calcium carbonate 430 mg calcium 430 mg PO Q8H PRN Indigestion 03/28/22 08/05/22 (1,000 mg) chewable tablet furosemide 20 mg tablet 20 mg PO DAILY 03/28/22 08/05/22 lamotrigine 100 mg tablet 100 mg PO BEDTIME 03/28/22 08/05/22 (Lamictal) lamotrigine 25 mg tablet (Lamictal) 25 mg PO BEDTIME 03/28/22 08/05/22 menthol 4 % topical gel (Biofreeze 1 appl topical BID 03/28/22 08/05/22 (menthol)) menthol 4 % topical gel (Biofreeze 1 appl topical Q2H PRN Pain (Scale 03/28/22 08/05/22 (menthol)) Score 1-3) polyvinyl alcohol 1.4 % eye drops 1 drp ophthalmic (eye) DAILY 03/28/22 08/05/22 pseudoephedrine-guaifenesin ER 60 1 tab PO BID PRN Congestion 03/28/22 08/05/22 mg-600 mg tablet,extend release 12hr (Mucus D) sertraline 100 mg tablet 100 mg PO DAILY 03/28/22 08/05/22 tramadol 100 mg tablet 100 mg PO Q6H PRN Back Pain 03/28/22 08/05/22 acetaminophen 325 mg tablet 650 mg PO DAILY PRN HEADACHE, 07/17/22 08/05/22 fEVER > 100.4, BODY ACHES baclofen 20 mg tablet 20 mg PO BID 07/17/22 08/05/22 budesonide-formoterol HFA 160 2 puff inhalation BID 07/17/22 08/05/22 mcg-4.5 mcg/actuation aerosol inhaler (Symbicort) buspirone 15 mg tablet 1 tab PO TID 07/17/22 08/05/22 sennosides 8.6 mg tablet (senna) 8.6 mg PO BID 07/17/22 08/05/22 umeclidinium 62.5 mcg/actuation 1 inh inhalation DAILY 07/17/22 08/05/22 blister powder for inhalation (Incruse Ellipta) bisacodyl 10 mg rectal suppository 10 mg GA BID PRN Constipation 08/05/22 08/05/22 magnesium hydroxide 400 mg/5 mL 30 ml PO DAILY PRN Constipation 08/05/22 08/05/22 oral suspension (Milk of Magnesia) miconazole nitrate 2 % topical 1 appl topical BEDTIME PRN skin 08/05/22 08/05/22 ointment integrity olanzapine 10 mg tablet 10 mg PO Q8H PRN agitation 08/05/22 08/05/22 Previous Rx's Medication Instructions Recorded haloperidol 5 mg tablet 5 mg PO TID #90 tabs 07/23/22 lorazepam 0.5 mg tablet (Ativan) 0.5 mg PO BID PRN anxiety #30 tabs 07/23/22 cefuroxime axetil 500 mg tablet 500 mg PO BID #10 tabs 08/07/22 prednisone 20 mg tablet 40 mg PO DAILY #10 tabs 08/07/22 lactulose 10 gram/15 mL (15 mL) 10 g (15 mL) PO BEDTIME PRN 09/25/22 oral solution laxative effect #120 mL doxycycline hyclate 100 mg capsule 100 mg PO BID #14 caps 10/07/22 Allergies Allergy/AdvReac Type Severity Reaction Status Date / Time No Known Allergies Allergy Verified 09/12/22 17:33 Review of Systems Review of Systems: Yes all other systems are reviewed and are negative [facility] Past Medical History Medical History Afib Anxiety disorder CHF (congestive heart failure) Cognitive disorder COPD (chronic obstructive pulmonary disease) CVA (cerebrovascular accident) Mood disorder as late effect of traumatic brain injury Traumatic brain injury Social History Social History Household Members: Unknown / Unable to assess Housing: Other Housing Other:: snf Unable to assess alcohol history related to: Unable to respond Alcohol intake: current Alcohol intake frequency: does not drink Patient Tobacco Use Status: Former Tobacco user Smoked in Last 30 Days: No Use of substances other than those prescribed or required for medical reasons: No Substance Use Type: Unknown Advance Directives: Yes Advance Directives on File: Yes Advance Directives Date on File: 11/11/21 service: No Current occupational status: disabled Physical Exam Vital Signs: Vital Signs: Last Vital Signs Temp 98.0 F 10/14/22 17:52 Pulse 75 10/14/22 17:52 Resp 16 10/14/22 17:52 BP 110/65 10/14/22 17:52 Pulse Ox 91 L 10/14/22 17:55 O2 Del Method Room Air 10/14/22 17:55 BMI result Body Mass Index 30.8 Appearance: Alert. Oriented X3. No acute distress. Obese Eyes: PERRLA, No Nystagmus ENT: Pharynx normal. Oral Mucosa moist Neck: Normal inspection. Neck supple. CVS: Normal heart rate and rhythm. Pulses normal. Respiratory: No respiratory distress. Equal air entry bilateral, no wheezing/rales/rhonchi Abdomen: Soft and nontender. Bowel sounds are present, Skin: Skin warm and dry. Normal skin color. Normal skin turgor. Extremities: No lower extremity edema. No calf tenderness Neuro: Oriented X 3. Residual left-sided hemiparesis limited right leg movement Medical Decision Making Medical Decision Making [facility] Narrative: Patient with multiple complaints came here for the cough with him multiple times chest x-ray negative for infiltrate discharged back to snf saturating 91% on room air improved to 90 6-97% on 2 L Discharge Plan Discharge Clinical Impression: Viral bronchitis Patient Disposition: Xfer LTC Transfer Details: Patient chest x-ray negative for pneumonia no significant cough noticed in the ER symptomatic treatment as needed Instructions: Acute Bronchitis (ED) Additional Instructions: Robitussin cough syrup as needed for cough Follow up with your PCP Prescriptions: No Action lorazepam [Ativan] 1 mg tablet 1 tab PO BEDTIME melatonin 5 mg capsule 2 cap PO BEDTIME mirtazapine 15 mg Tablet 15 mg PO BEDTIME atorvastatin 40 mg Tablet 40 mg PO BEDTIME gabapentin 400 mg Capsule 400 mg TID pantoprazole 40 mg Tablet,Delayed Release (Dr/Ec) 40 mg PO DAILY@1630 metoprolol tartrate 50 mg Tablet 50 mg PO BID Rx Instructions: HOLD IF SBP < 100 OR > 140 HOLD IF HR < 60 OR > 100 cetirizine 10 mg Tablet 10 mg PO DAILY docusate sodium 100 mg Capsule 100 mg PO BID furosemide 20 mg Tablet 20 mg PO DAILY PRN (Reason: fluid overload) Rx Instructions: NEEDED FOR WEIGHT GAIN > 3 POUNDS finasteride 5 mg Tablet 5 mg PO DAILY Xarelto 20 mg Tablet 20 mg PO BEDTIME Rx Instructions: must administer with evening meal midodrine 5 mg tablet 1 tab PO TIDAC azelastine 0.05 % Drops 1 drp OPHTHALMIC (EYE) Q12H PRN (Reason: Allergy Symptoms) acetaminophen 325 mg Tablet 650 mg PO TID albuterol sulfate 2.5 mg /3 mL (0.083 %) Solution For Nebulization 2.5 mg INHALATION Q8H PRN (Reason: Shortness Of Breath) polyvinyl alcohol 1.4 % Drops 1 drp OPHTHALMIC (EYE) DAILY sertraline 100 mg Tablet 100 mg PO DAILY Rx Instructions: tdd = 150 mg pseudoephedrine-guaifenesin [Mucus D] 60-600 mg Tablet Extended Release 12 Hr 1 tab PO BID PRN (Reason: Congestion) lamotrigine [Lamictal] 25 mg Tablet 25 mg PO BEDTIME Rx Instructions: tdd = 125 mg Biofreeze (menthol) 4 % Gel 1 appl TOPICAL BID Rx Instructions: apply a thin layer mid to lower back Biofreeze (menthol) 4 % Gel 1 appl TOPICAL Q2H PRN (Reason: Pain (Scale Score 1-3)) Rx Instructions: apply to mid lower back calcium carbonate 430 mg calcium (1,000 mg) Tablet,Chewable 430 mg PO Q8H PRN (Reason: Indigestion) tramadol 100 mg Tablet 100 mg PO Q6H PRN (Reason: Back Pain) furosemide 20 mg Tablet 20 mg PO DAILY Rx Instructions: HOLD FOR SBP< 100 OR > 140 HOLD IF HR < 60 OR > 100 lamotrigine [Lamictal] 100 mg Tablet 100 mg PO BEDTIME Rx Instructions: TAKE TOGETHER WITH 25 MG TAB TDD= 125 MG buspirone 15 mg tablet 1 tab PO TID budesonide-formoterol [Symbicort] 160-4.5 mcg/actuation Hfa Aerosol Inhaler 2 puff INHALATION BID baclofen 20 mg Tablet 20 mg PO BID sennosides [senna] 8.6 mg Tablet 8.6 mg PO BID Rx Instructions: HOLD FOR LOOSE BOWEL MOVEMENT Incruse Ellipta 62.5 mcg/actuation Blister With Device 1 inh INHALATION DAILY acetaminophen 325 mg Tablet 650 mg PO DAILY PRN (Reason: HEADACHE, fEVER > 100.4, BODY ACHES ) haloperidol 5 mg Tablet 5 mg PO TID Qty: 90 0RF lorazepam [Ativan] 0.5 mg tablet 0.5 mg PO BID PRN (Reason: anxiety) Qty: 30 0RF magnesium hydroxide [Milk of Magnesia] 400 mg/5 mL Suspension 30 ml PO DAILY PRN (Reason: Constipation) miconazole nitrate 2 % Ointment 1 appl TOPICAL BEDTIME PRN (Reason: skin integrity) bisacodyl 10 mg Suppository 10 mg GA BID PRN (Reason: Constipation) olanzapine 10 mg tablet 10 mg PO Q8H PRN (Reason: agitation) prednisone 20 mg Tablet 40 mg PO DAILY Qty: 10 0RF cefuroxime axetil 500 mg tablet 500 mg PO BID Qty: 10 0RF lactulose 10 gram/15 mL (15 mL) solution 10 g PO BEDTIME PRN (Reason: laxative effect) Qty: 120 0RF doxycycline hyclate 100 mg capsule 100 mg PO BID Qty: 14 0RF Interventions: ED Discharge Assessment Last Done: 10/14/22 20:46 Discharge Date/Time: 10/14/22 20:46
[2022-10-14 17:52] VITALS: BP 109/72; BP 110/65; PULSE 70; PULSE 75; RESP 16; TEMP 36.7; O2SAT 91; O2SAT 94; BMI 30.8
[2022-10-14 17:55] VITALS: O2SAT 91
--- NOTE | 2022-10-14 20:08 | MHC.EDTECH ---
Call out to [facility] @1956 for transport back to [address] [place] [address], [facility]
== END 2022-10-14 20:46 ==
PROVIDERS: Emergency Provider Internal Medicine; PCP Family Medicine
DX: J20.8 Acute bronchitis due to other specified organisms (principal); I69.354 Hemiplegia and hemiparesis following cerebral infarction affecting left non-dominant side; I11.0 Hypertensive heart disease with heart failure; I50.9 Heart failure, unspecified; I48.91 Unspecified atrial fibrillation; J44.9 Chronic obstructive pulmonary disease, unspecified; Z99.81 Dependence on supplemental oxygen; Z87.891 Personal history of nicotine dependence; Z79.01 Long term (current) use of anticoagulants; Z79.02 Long term (current) use of antithrombotics/antiplatelets; Z79.899 Other long term (current) drug therapy
CPT/HCPCS: 71045; 99283; 99284

== ENCOUNTER 2022-11-01 09:48 | Emergency (ER) | payer OTHER, SELFPAY ==
--- NOTE | ~2022-11-01 | XR_ITS ---
EXAMINATION: XR CHEST CLINICAL INFORMATION: SOB COMPARISON: Chest 10/14/2022 TECHNIQUE: Frontal view of the chest was obtained. FINDINGS: The lungs are hypoexpanded and clear. The heart size is enlarged. Pulmonary vascularity is normal. No gross bony abnormality seen. XR/XR chest 1V IMPRESSION: Hypoexpanded lungs without acute process. Moderate cardiomegaly.
[2022-11-01 10:15] VITALS: BP 120/83; BP 137/70; PULSE 60; PULSE 77; RESP 20; TEMP 36.2; O2SAT 95; BMI 30.1
--- NOTE | 2022-11-01 10:21 | ED_ITS ---
HPI - SOB/Dyspnea General Chief Complaint: Dyspnea Stated Complaint: Diff breathing x 3 months, [facility] Time Seen by Provider: 11/01/22 10:00 Source: patient and old records reviewed Mode of arrival: EMS Limitations: no limitations History of Present Illness HPI Narrative: Patient 57 years old with multiple ED visits with history of CVA with left hemiparesis AFib chronic diastolic CHF COPD hypoxic failure on oxygen TBI mood disorder anxiety comes here for work chronic cough and shortness of breath for more than 3 months Related Data Home Medications Medication Instructions Recorded Confirmed atorvastatin 40 mg tablet 40 mg PO BEDTIME 02/28/22 08/05/22 gabapentin 400 mg capsule 400 mg TID 02/28/22 08/05/22 lorazepam 1 mg tablet (Ativan) 1 tab PO BEDTIME 02/28/22 08/05/22 melatonin 5 mg capsule 2 cap PO BEDTIME 02/28/22 08/05/22 metoprolol tartrate 50 mg tablet 50 mg PO BID 02/28/22 08/05/22 mirtazapine 15 mg tablet 15 mg PO BEDTIME 02/28/22 08/05/22 pantoprazole 40 mg tablet,delayed 40 mg PO DAILY@1630 02/28/22 08/05/22 release cetirizine 10 mg tablet 10 mg PO DAILY 03/01/22 08/05/22 docusate sodium 100 mg capsule 100 mg PO BID 03/01/22 08/05/22 finasteride 5 mg tablet 5 mg PO DAILY 03/01/22 08/05/22 furosemide 20 mg tablet 20 mg PO DAILY PRN fluid overload 03/01/22 08/05/22 midodrine 5 mg tablet 1 tab PO TIDAC 03/01/22 08/05/22 rivaroxaban 20 mg tablet (Xarelto) 20 mg PO BEDTIME 03/01/22 08/05/22 acetaminophen 325 mg tablet 650 mg PO TID 03/28/22 08/05/22 albuterol sulfate 2.5 mg/3 mL 2.5 mg inhalation Q8H PRN 03/28/22 08/05/22 (0.083 %) solution for nebulization Shortness Of Breath azelastine 0.05 % eye drops 1 drp ophthalmic (eye) Q12H PRN 03/28/22 08/05/22 Allergy Symptoms calcium carbonate 430 mg calcium 430 mg PO Q8H PRN Indigestion 03/28/22 08/05/22 (1,000 mg) chewable tablet furosemide 20 mg tablet 20 mg PO DAILY 03/28/22 08/05/22 lamotrigine 100 mg tablet 100 mg PO BEDTIME 03/28/22 08/05/22 (Lamictal) lamotrigine 25 mg tablet (Lamictal) 25 mg PO BEDTIME 03/28/22 08/05/22 menthol 4 % topical gel (Biofreeze 1 appl topical BID 03/28/22 08/05/22 (menthol)) menthol 4 % topical gel (Biofreeze 1 appl topical Q2H PRN Pain (Scale 03/28/22 08/05/22 (menthol)) Score 1-3) polyvinyl alcohol 1.4 % eye drops 1 drp ophthalmic (eye) DAILY 03/28/22 08/05/22 pseudoephedrine-guaifenesin ER 60 1 tab PO BID PRN Congestion 03/28/22 08/05/22 mg-600 mg tablet,extend release 12hr (Mucus D) sertraline 100 mg tablet 100 mg PO DAILY 03/28/22 08/05/22 tramadol 100 mg tablet 100 mg PO Q6H PRN Back Pain 03/28/22 08/05/22 acetaminophen 325 mg tablet 650 mg PO DAILY PRN HEADACHE, 07/17/22 08/05/22 fEVER > 100.4, BODY ACHES baclofen 20 mg tablet 20 mg PO BID 07/17/22 08/05/22 budesonide-formoterol HFA 160 2 puff inhalation BID 07/17/22 08/05/22 mcg-4.5 mcg/actuation aerosol inhaler (Symbicort) buspirone 15 mg tablet 1 tab PO TID 07/17/22 08/05/22 sennosides 8.6 mg tablet (senna) 8.6 mg PO BID 07/17/22 08/05/22 umeclidinium 62.5 mcg/actuation 1 inh inhalation DAILY 07/17/22 08/05/22 blister powder for inhalation (Incruse Ellipta) bisacodyl 10 mg rectal suppository 10 mg ME BID PRN Constipation 08/05/22 08/05/22 magnesium hydroxide 400 mg/5 mL 30 ml PO DAILY PRN Constipation 08/05/22 08/05/22 oral suspension (Milk of Magnesia) miconazole nitrate 2 % topical 1 appl topical BEDTIME PRN skin 08/05/22 08/05/22 ointment integrity olanzapine 10 mg tablet 10 mg PO Q8H PRN agitation 08/05/22 08/05/22 Previous Rx's Medication Instructions Recorded haloperidol 5 mg tablet 5 mg PO TID #90 tabs 07/23/22 lorazepam 0.5 mg tablet (Ativan) 0.5 mg PO BID PRN anxiety #30 tabs 07/23/22 cefuroxime axetil 500 mg tablet 500 mg PO BID #10 tabs 08/07/22 prednisone 20 mg tablet 40 mg PO DAILY #10 tabs 08/07/22 lactulose 10 gram/15 mL (15 mL) 10 g (15 mL) PO BEDTIME PRN 09/25/22 oral solution laxative effect #120 mL doxycycline hyclate 100 mg capsule 100 mg PO BID #14 caps 10/07/22 Allergies Allergy/AdvReac Type Severity Reaction Status Date / Time No Known Allergies Allergy Verified 09/12/22 17:33 [facility] Past Medical History Medical History Afib Anxiety disorder CHF (congestive heart failure) Cognitive disorder COPD (chronic obstructive pulmonary disease) CVA (cerebrovascular accident) Mood disorder as late effect of traumatic brain injury Traumatic brain injury Social History Social History Household Members: Unknown / Unable to assess Housing: Other Housing Other:: prison Unable to assess alcohol history related to: Unable to respond Alcohol intake: never Patient Tobacco Use Status: Former Tobacco user Smoked in Last 30 Days: No Use of substances other than those prescribed or required for medical reasons: No Substance Use Type: Unknown Advance Directives: Yes Advance Directives on File: Yes Advance Directives Date on File: 11/11/21 service: No Current occupational status: disabled Physical Exam Vital Signs: Vital Signs: Last Vital Signs Temp 97.2 F 11/01/22 10:15 Pulse 58 11/01/22 13:57 Resp 18 11/01/22 13:57 BP 109/63 11/01/22 13:57 Pulse Ox 97 11/01/22 13:57 O2 Del Method Nasal Cannula 11/01/22 13:57 O2 Flow Rate 4 11/01/22 13:57 BMI result Body Mass Index 30.1 Appearance: Alert. Oriented X3. No acute distress. Eyes: PERRLA, No Nystagmus ENT: Pharynx normal. Oral Mucosa moist Neck: Normal inspection. Neck supple. CVS: Normal heart rate and rhythm. Pulses normal. Respiratory: No respiratory distress. Equal air entry bilateral, no whee zing/rales/rhonchi Abdomen: Soft and nontender. Bowel sounds are present, no mass palpable, no CVA tenderness Skin: Skin warm and dry. Normal skin color. Normal skin turgor. Extremities: No lower extremity edema. No calf tenderness Neuro: Oriented X 3. No motor deficit. Medical Decision Making Medical Decision Making [facility] Narrative: And chest x-ray negative saturating 96% on 3 L will discharge patient back to retirement advised to continue same treatment but he was taking before Discharge Plan Discharge Clinical Impression: Chronic diastolic (congestive) heart failure Patient Disposition: Xfer SNF Transfer Details: Patient x-rays negative for any CHF or infiltrate saturating 92% on 3 L Prescriptions: No Action lorazepam [Ativan] 1 mg tablet 1 tab PO BEDTIME melatonin 5 mg capsule 2 cap PO BEDTIME mirtazapine 15 mg Tablet 15 mg PO BEDTIME atorvastatin 40 mg Tablet 40 mg PO BEDTIME gabapentin 400 mg Capsule 400 mg TID pantoprazole 40 mg Tablet,Delayed Release (Dr/Ec) 40 mg PO DAILY@1630 metoprolol tartrate 50 mg Tablet 50 mg PO BID Rx Instructions: HOLD IF SBP < 100 OR > 140 HOLD IF HR < 60 OR > 100 cetirizine 10 mg Tablet 10 mg PO DAILY docusate sodium 100 mg Capsule 100 mg PO BID furosemide 20 mg Tablet 20 mg PO DAILY PRN (Reason: fluid overload) Rx Instructions: NEEDED FOR WEIGHT GAIN > 3 POUNDS finasteride 5 mg Tablet 5 mg PO DAILY Xarelto 20 mg Tablet 20 mg PO BEDTIME Rx Instructions: must administer with evening meal midodrine 5 mg tablet 1 tab PO TIDAC azelastine 0.05 % Drops 1 drp OPHTHALMIC (EYE) Q12H PRN (Reason: Allergy Symptoms) acetaminophen 325 mg Tablet 650 mg PO TID albuterol sulfate 2.5 mg /3 mL (0.083 %) Solution For Nebulization 2.5 mg INHALATION Q8H PRN (Reason: Shortness Of Breath) polyvinyl alcohol 1.4 % Drops 1 drp OPHTHALMIC (EYE) DAILY sertraline 100 mg Tablet 100 mg PO DAILY Rx Instructions: tdd = 150 mg pseudoephedrine-guaifenesin [Mucus D] 60-600 mg Tablet Extended Release 12 Hr 1 tab PO BID PRN (Reason: Congestion) lamotrigine [Lamictal] 25 mg Tablet 25 mg PO BEDTIME Rx Instructions: tdd = 125 mg Biofreeze (menthol) 4 % Gel 1 appl TOPICAL BID Rx Instructions: apply a thin layer mid to lower back Biofreeze (menthol) 4 % Gel 1 appl TOPICAL Q2H PRN (Reason: Pain (Scale Score 1-3)) Rx Instructions: apply to mid lower back calcium carbonate 430 mg calcium (1,000 mg) Tablet,Chewable 430 mg PO Q8H PRN (Reason: Indigestion) tramadol 100 mg Tablet 100 mg PO Q6H PRN (Reason: Back Pain) furosemide 20 mg Tablet 20 mg PO DAILY Rx Instructions: HOLD FOR SBP< 100 OR > 140 HOLD IF HR < 60 OR > 100 lamotrigine [Lamictal] 100 mg Tablet 100 mg PO BEDTIME Rx Instructions: TAKE TOGETHER WITH 25 MG TAB TDD= 125 MG buspirone 15 mg tablet 1 tab PO TID budesonide-formoterol [Symbicort] 160-4.5 mcg/actuation Hfa Aerosol Inhaler 2 puff INHALATION BID baclofen 20 mg Tablet 20 mg PO BID sennosides [senna] 8.6 mg Tablet 8.6 mg PO BID Rx Instructions: HOLD FOR LOOSE BOWEL MOVEMENT Incruse Ellipta 62.5 mcg/actuation Blister With Device 1 inh INHALATION DAILY acetaminophen 325 mg Tablet 650 mg PO DAILY PRN (Reason: HEADACHE, fEVER > 100.4, BODY ACHES ) haloperidol 5 mg Tablet 5 mg PO TID Qty: 90 0RF lorazepam [Ativan] 0.5 mg tablet 0.5 mg PO BID PRN (Reason: anxiety) Qty: 30 0RF magnesium hydroxide [Milk of Magnesia] 400 mg/5 mL Suspension 30 ml PO DAILY PRN (Reason: Constipation) miconazole nitrate 2 % Ointment 1 appl TOPICAL BEDTIME PRN (Reason: skin integrity) bisacodyl 10 mg Suppository 10 mg ME BID PRN (Reason: Constipation) olanzapine 10 mg tablet 10 mg PO Q8H PRN (Reason: agitation) prednisone 20 mg Tablet 40 mg PO DAILY Qty: 10 0RF cefuroxime axetil 500 mg tablet 500 mg PO BID Qty: 10 0RF lactulose 10 gram/15 mL (15 mL) solution 10 g PO BEDTIME PRN (Reason: laxative effect) Qty: 120 0RF doxycycline hyclate 100 mg capsule 100 mg PO BID Qty: 14 0RF
--- NOTE | 2022-11-01 10:21 | PC.NURSE ---
Patient presents with 3 month history of shortness of breath. Patient has been seen for this problem in the past and states that nothing is ever seen when he gets checked out. Patient stating that he didn't want to come to this facility and that he wanted to go to [facility] instead.
--- NOTE | 2022-11-01 10:59 | PC.NURSE ---
Patient told [facility] that he couldn't breath. This nurse assessed patient and noted that airway was clear and patent, patient stating at 95% on 2L O2.
[2022-11-01 13:57] VITALS: BP 109/63; PULSE 58; RESP 18; O2SAT 97
== END 2022-11-03 07:03 | disposition skilled nursing facility (03) ==
PROVIDERS: Emergency Provider Internal Medicine; PCP Family Medicine
DX: I50.9 Heart failure, unspecified (principal); R06.02 Shortness of breath; Z87.891 Personal history of nicotine dependence; Z79.899 Other long term (current) drug therapy; Z86.73 Personal history of transient ischemic attack (TIA), and cerebral infarction without residual deficits
CPT/HCPCS: 71045; 99284

== ENCOUNTER 2022-11-05 07:20 | Emergency (ER) | payer OTHER, SELFPAY ==
--- NOTE | ~2022-11-05 | XR_ITS ---
EXAMINATION: XR CHEST CLINICAL INFORMATION: Chest pain. Cough. Rule out pneumonia. COMPARISON: Chest x-ray 11/01/2022 TECHNIQUE: 2 views of the chest were obtained. FINDINGS: Stable cardiac silhouette. The lungs are hypoinflated. Patchy airspace opacities within the left lower lung. No pleural effusion. No pneumothorax. XR/XR chest 2V IMPRESSION: Patchy airspace opacities within the left lower lung. This is a nonspecific finding but may represent an infectious process. Follow-up radiographs recommended status post treatment to ensure resolution.
[2022-11-05 07:30] VITALS: BP 105/73; BP 121/77; PULSE 72; PULSE 76; RESP 20; TEMP 36.9; O2SAT 94; O2SAT 96; BMI 25.1
--- NOTE | 2022-11-05 07:43 | ED.CHESTPAIN ---
HPI - Chest Pain General Chief Complaint: Chest Pain Stated Complaint: LOW BACK PAIN FROM [facility] PER EMS Time Seen by Provider: 11/05/22 07:42 Source: patient Mode of arrival: EMS Limitations: no limitations History of Present Illness HPI narrative: 57-year-old male who presents emergency department for evaluation of chest pain. The patient states that he was awake at 02:00 hours when he had a gradual onset of chest pain. He points to his sternum when asked to localize the pain. He describes the pain is a vicelike , constant pain which is 8/10. He denied fever but had associated chills. He states that he has had a hoarse voice and a sore throat x1 week. He states that over the last 2 days he has had rhinorrhea, sore throat shortness of breath and diarrhea up to 4 episodes per day per day with no blood in the diarrhea. He denied cough. He has noted dysuria but no frequency. The patient states he has had similar chest pain in the past and has been evaluated in the emergency department. States that he has been treated with Ativan in the past and this has helped his pain. He was seen on 11/01/2022 (3 days prior) for cough and shortness of breath and his workup was unremarkable. He has been seen frequently in the emergency department and was here 5 times in October 2022 for various complaints. The patient is on 2.5 L of oxygen chronically for his COPD. Related Data Home Medications Medication Instructions Recorded Confirmed atorvastatin 40 mg tablet 40 mg PO BEDTIME 02/28/22 08/05/22 gabapentin 400 mg capsule 400 mg TID 02/28/22 08/05/22 lorazepam 1 mg tablet (Ativan) 1 tab PO BEDTIME 02/28/22 08/05/22 melatonin 5 mg capsule 2 cap PO BEDTIME 02/28/22 08/05/22 metoprolol tartrate 50 mg tablet 50 mg PO BID 02/28/22 08/05/22 mirtazapine 15 mg tablet 15 mg PO BEDTIME 02/28/22 08/05/22 pantoprazole 40 mg tablet,delayed 40 mg PO DAILY@1630 02/28/22 08/05/22 release cetirizine 10 mg tablet 10 mg PO DAILY 03/01/22 08/05/22 docusate sodium 100 mg capsule 100 mg PO BID 03/01/22 08/05/22 finasteride 5 mg tablet 5 mg PO DAILY 03/01/22 08/05/22 furosemide 20 mg tablet 20 mg PO DAILY PRN fluid overload 03/01/22 08/05/22 midodrine 5 mg tablet 1 tab PO TIDAC 03/01/22 08/05/22 rivaroxaban 20 mg tablet (Xarelto) 20 mg PO BEDTIME 03/01/22 08/05/22 acetaminophen 325 mg tablet 650 mg PO TID 03/28/22 08/05/22 albuterol sulfate 2.5 mg/3 mL 2.5 mg inhalation Q8H PRN 03/28/22 08/05/22 (0.083 %) solution for nebulization Shortness Of Breath azelastine 0.05 % eye drops 1 drp ophthalmic (eye) Q12H PRN 03/28/22 08/05/22 Allergy Symptoms calcium carbonate 430 mg calcium 430 mg PO Q8H PRN Indigestion 03/28/22 08/05/22 (1,000 mg) chewable tablet furosemide 20 mg tablet 20 mg PO DAILY 03/28/22 08/05/22 lamotrigine 100 mg tablet 100 mg PO BEDTIME 03/28/22 08/05/22 (Lamictal) lamotrigine 25 mg tablet (Lamictal) 25 mg PO BEDTIME 03/28/22 08/05/22 menthol 4 % topical gel (Biofreeze 1 appl topical BID 03/28/22 08/05/22 (menthol)) menthol 4 % topical gel (Biofreeze 1 appl topical Q2H PRN Pain (Scale 03/28/22 08/05/22 (menthol)) Score 1-3) polyvinyl alcohol 1.4 % eye drops 1 drp ophthalmic (eye) DAILY 03/28/22 08/05/22 pseudoephedrine-guaifenesin ER 60 1 tab PO BID PRN Congestion 03/28/22 08/05/22 mg-600 mg tablet,extend release 12hr (Mucus D) sertraline 100 mg tablet 100 mg PO DAILY 03/28/22 08/05/22 tramadol 100 mg tablet 100 mg PO Q6H PRN Back Pain 03/28/22 08/05/22 acetaminophen 325 mg tablet 650 mg PO DAILY PRN HEADACHE, 07/17/22 08/05/22 fEVER > 100.4, BODY ACHES baclofen 20 mg tablet 20 mg PO BID 07/17/22 08/05/22 budesonide-formoterol HFA 160 2 puff inhalation BID 07/17/22 08/05/22 mcg-4.5 mcg/actuation aerosol inhaler (Symbicort) buspirone 15 mg tablet 1 tab PO TID 07/17/22 08/05/22 sennosides 8.6 mg tablet (senna) 8.6 mg PO BID 07/17/22 08/05/22 umeclidinium 62.5 mcg/actuation 1 inh inhalation DAILY 07/17/22 08/05/22 blister powder for inhalation (Incruse Ellipta) bisacodyl 10 mg rectal suppository 10 mg [place] BID PRN Constipation 08/05/22 08/05/22 magnesium hydroxide 400 mg/5 mL 30 ml PO DAILY PRN Constipation 08/05/22 08/05/22 oral suspension (Milk of Magnesia) miconazole nitrate 2 % topical 1 appl topical BEDTIME PRN skin 08/05/22 08/05/22 ointment integrity olanzapine 10 mg tablet 10 mg PO Q8H PRN agitation 08/05/22 08/05/22 Previous Rx's Medication Instructions Recorded haloperidol 5 mg tablet 5 mg PO TID #90 tabs 07/23/22 lorazepam 0.5 mg tablet (Ativan) 0.5 mg PO BID PRN anxiety #30 tabs 07/23/22 cefuroxime axetil 500 mg tablet 500 mg PO BID #10 tabs 08/07/22 prednisone 20 mg tablet 40 mg PO DAILY #10 tabs 08/07/22 lactulose 10 gram/15 mL (15 mL) 10 g (15 mL) PO BEDTIME PRN 09/25/22 oral solution laxative effect #120 mL doxycycline hyclate 100 mg capsule 100 mg PO BID #14 caps 10/07/22 levofloxacin 500 mg tablet 500 mg PO DAILY 5 days #5 tabs 11/05/22 Allergies Allergy/AdvReac Type Severity Reaction Status Date / Time No Known Allergies Allergy Verified 09/12/22 17:33 Review of Systems Review of Systems: Yes all other systems are reviewed and are negative PMFSH Past Medical History [facility] Narrative: Social history: The patient lives in a fdc, he states he is unable to walk secondary to his left hemiparesis from his stroke. He denies tobacco, alcohol and drug use. Medical History Afib Anxiety disorder CHF (congestive heart failure) Cognitive disorder COPD (chronic obstructive pulmonary disease) CVA (cerebrovascular accident) Mood disorder as late effect of traumatic brain injury Traumatic brain injury Social History Social History Household Members: Unknown / Unable to assess Housing: Other Housing Other:: fdc Unable to assess alcohol history related to: Unable to respond Alcohol intake: never Patient Tobacco Use Status: Former Tobacco user Smoked in Last 30 Days: No Use of substances other than those prescribed or required for medical reasons: No Substance Use Type: Unknown Advance Directives: Yes Advance Directives on File: Yes Advance Directives Date on File: 11/11/21 service: No Current occupational status: disabled Physical Exam Vital Signs: Vital Signs: Last Vital Signs Temp 97.8 F 11/05/22 16:21 Pulse 91 11/05/22 16:21 Resp 17 11/05/22 16:21 BP 134/82 11/05/22 16:21 Pulse Ox 95 11/05/22 16:21 O2 Del Method Nasal Cannula 11/05/22 16:21 O2 Flow Rate 2 11/05/22 16:21 Oxygen Flow Rate 2 11/05/22 07:30 BMI result Body Mass Index 25.1 Const: Other: Awake, alert, male patient, disheveled, pleasant, cooperative, does answer questions appropriately, does not appear to be in distress Orientation/consciousness: oriented to person and oriented to place HEENT: Head: Yes normal to inspection, Yes normocephalic and Yes atraumatic Ears: external ears normal General nose exam: Normal external nose present Face and sinus: Yes normal facial exam Mouth: Normal oral and palatal mucosa present Throat: Yes posterior oropharynx normal Eyes: General: appearance normal, both eyes and all related structures Pupils: Equal, round and reactive pupils present Neck: Neck: Yes normal visual inspection, Yes no lymphadenopathy, Yes trachea midline and Yes supple Chest: Chest palpation & inspection: normal inspection of the chest and tenderness sternum (Moderate) Resp: Effort & Inspection: normal respiratory effort and able to speak in complete sentences Auscultation: clear to auscultation bilaterally Cardio: Rate: regular rate Rhythm: regular rhythm Heart sounds: S1 normal heart sound present, S2 normal heart sound present and no murmurs GI: Inspection: Yes normal to inspection Palpation (GI): Soft to palpation, nontender and no guarding Auscultation: normal bowel sounds : General: Yes no CVA tenderness Back/Spine/Pelvis: Back: no CVA tenderness Skin: General skin exam: no rashes or lesions noted Neuro: General: oriented to person and oriented to place Cranial nerves: Yes CN's II-XII intact bilaterally and Yes Equal, round and reactive pupils present Cognition (Neuro): normal cognition Motor exam (neuro): Abnormal motor strength present (Left upper and lower extremity paralysis secondary to previous stroke) Extrem: Other: Patient's left upper extremity is contracted secondary to paralysis Psych: Appearance: grossly normal Speech and movement: Normal speech and movement present Affect: normal affect Attitude: cooperative Thought process: Normal thought process present Thought content: Normal thought content present Medications Administered Discontinued Medications Generic Name Dose Route Start Last Admin Trade Name Freq PRN Reason Stop Dose Admin Lorazepam 2 mg 11/05/22 08:03 11/05/22 08:47 Lorazepam 2 Mg/Ml Vial IVPUSH 11/05/22 08:04 2 mg STAT STA Administration Lorazepam 1 mg 11/05/22 13:34 11/05/22 14:20 Lorazepam 2 Mg/Ml Vial IVPUSH 11/05/22 13:35 1 mg STAT STA Administration Medical Decision Making Medical Decision Making [facility] Narrative: 57-year-old male with multiple medical problems who presents emergency department for evaluation of gradual onset of sternal chest pain that started at 02:00 hours, pain is 8/10 at its worst, diarrhea x4 days, sore throat x1 week, chills and dysuria.. Patient's vital signs were normal. The patient's O2 saturation is 94% on 2.5 L via nasal cannula which is is normal oxygen dose for his COPD. Patient did have midsternal chest pressure otherwise exam was consistent with his previous stroke. The patient is seen frequently here in the emergency department is been seen in the past for shortness of breath and chest pain which was diagnosis chest wall pain. Patient did tell me the Ativan improves his symptoms therefore I ordered Ativan 2 mg IV. I also ordered an evaluation to include EKG, two view chest x-ray, CBC, CMP, C diff, COVID-19, influenza, lipase, PT/INR, PTT, rapid strep test, troponin and urinalysis. 1634: My independent interpretation the patient's laboratory evaluation is as follows: WBC elevated 11,000 with normal differential. Anemia with an H&H of 12.2 and 37.9-this is chronic. INR is elevated 2.1, PTT is elevated 40.2-this could be secondary to Xarelto therapy. CMP was normal. Troponin was below detectable limits. Urinalysis revealed 2+ leukocyte esterase, microscopic revealed 6-10 WBCs, 3-5 squamous cells and 4+ bacteria. Patient is asymptomatic with no frequency, urgency or dysuria. C diff gene was positive but C diff a and B toxins were negative suggested the patient has colonization but no active infection. Chest x-ray is concerning for left lower lobe infiltrate. I will treat the patient with Levaquin 500 mg daily for 5 days. Differential Diagnosis Differential includes was not limited to myocardial infarction, pneumonia, chest wall pain, viral syndrome, C diff colitis, viral colitis, strep pharyngitis, viral pharyngitis Admission/Observation Consideration of admission/observation: Escalation of care including admission/observation considered Lab Data MDM Lab Attestation statement: I reviewed the patient's lab results. 11/05/22 09:05 11/05/22 09:05 Labs: Lab Results 11/05/22 11/05/22 11/05/22 Range/Units 09:05 09:05 09:05 WBC 11.0 H (4.8-10.8) X10*3/uL RBC 4.11 L (4.60-5.80) X10*6/uL Hgb 12.2 L (14.0-18.0) g/dl Hct 37.9 L (42.0-52.0) % MCV 92.2 (80.0-98.0) fL MCH 29.7 (27.0-33.0) pg MCHC 32.2 (31.0-36.0) g/dl RDW 14.3 (11.0-16.0) % Plt Count 240 (160-400) X10*3/uL MPV 10.0 (9.4-12.4) fL Immature Gran % (Auto) 0.5 H (0.0-0.4) % Neut % (Auto) 57.2 (45-73) % Lymph % (Auto) 33.5 (20-40) % [place] % (Auto) 6.9 (2-11) % Eos % (Auto) 1.3 (0-4) % Baso % (Auto) 0.6 (0-2) % Lymph # (Auto) 3.7 (1.2-4.9) X10*3/uL [place] # (Auto) 0.8 (0.1-1.2) X10*3/uL Eos # (Auto) 0.1 (0.0-0.4) X10*3/uL Baso # (Auto) 0.1 (0.0-0.2) X10*3/uL Abs Immat Gran (auto) 0.06 H (0.00-0.03) X10*3/uL Absolute Neuts (auto) 6.3 (2.0-8.3) x10*3/uL Absolute Nucleated RBC 0.000 (0.0-0.012) X10*3/uL Nucleated RBC % (auto) 0.0 (0.0-0.2) /100WBC PT (10.0-13.1) SEC INR (0.9-1.1) APTT (26.0-36.4) SEC Sodium 141 (135-145) mmol/L Potassium 3.3 (3.3-5.1) mmol/L Chloride 107 (96-108) mmol/L Carbon Dioxide 27 (22-29) mmol/L Anion Gap 10 L (12-20) BUN 7 L (9-16) mg/dL Creatinine 0.62 (0.5-1.4) mg/dL Estim Creat Clear Calc 147.7 Estimated GFR > 60 Random Glucose 102 (60-115) mg/dL Calcium 8.7 (8.4-10.2) mg/dL Total Bilirubin 1.0 (0.0-1.0) mg/dL AST 10 (5-37) U/L ALT 12 (0-40) U/L Alkaline Phosphatase 123 H (39-117) U/L Troponin I High Sens (<3.5-35.0) ng/L Total Protein 5.9 L (6.5-8.0) g/dL Albumin 3.7 (3.5-5.0) g/dL Lipase 11 (8-78) U/L Urine Color Urine Appearance Urine pH (5.0-9.0) Ur Specific [place] (1.005-1.025) Urine Protein (Neg-Trace) mg/dL Urine Glucose (UA) (Negative) mg/dL Urine Ketones (Negative) mg/dL Urine Blood (Negative) Urine Nitrite (Negative) Ur Leukocyte Esterase (Negative) Urine RBC (0-2) /HPF Urine WBC (0-5) /HPF Ur Squamous Epith Cells (0-2) /HPF Urine Bacteria (None Seen) Hyaline Casts (0-2) /LPF C. difficile Tox B Gene (Negative) C. difficile Toxin A&B (Negative) C. difficile Interpret COVID-19 (ILIANA) Negative (Negative) COVID-19 Clin Com See Note Influenza Type A (RAMONITA) (Negative) Influenza Type B (RAMONITA) (Negative) Influenza A & B Note S. pyogenes GrpA RAMONITA (Negative) 11/05/22 11/05/22 11/05/22 Range/Units 09:05 09:05 09:05 WBC (4.8-10.8) X10*3/uL RBC (4.60-5.80) X10*6/uL Hgb (14.0-18.0) g/dl Hct (42.0-52.0) % MCV (80.0-98.0) fL MCH (27.0-33.0) pg MCHC (31.0-36.0) g/dl RDW (11.0-16.0) % Plt Count (160-400) X10*3/uL MPV (9.4-12.4) fL Immature Gran % (Auto) (0.0-0.4) % Neut % (Auto) (45-73) % Lymph % (Auto) (20-40) % [place] % (Auto) (2-11) % Eos % (Auto) (0-4) % Baso % (Auto) (0-2) % Lymph # (Auto) (1.2-4.9) X10*3/uL [place] # (Auto) (0.1-1.2) X10*3/uL Eos # (Auto) (0.0-0.4) X10*3/uL Baso # (Auto) (0.0-0.2) X10*3/uL Abs Immat Gran (auto) (0.00-0.03) X10*3/uL Absolute Neuts (auto) (2.0-8.3) x10*3/uL Absolute Nucleated RBC (0.0-0.012) X10*3/uL Nucleated RBC % (auto) (0.0-0.2) /100WBC PT 24.4 H (10.0-13.1) SEC INR 2.1 H (0.9-1.1) APTT 40.2 H (26.0-36.4) SEC Sodium (135-145) mmol/L Potassium (3.3-5.1) mmol/L Chloride (96-108) mmol/L Carbon Dioxide (22-29) mmol/L Anion Gap (12-20) BUN (9-16) mg/dL Creatinine (0.5-1.4) mg/dL Estim Creat Clear Calc Estimated GFR Random Glucose (60-115) mg/dL Calcium (8.4-10.2) mg/dL Total Bilirubin (0.0-1.0) mg/dL AST (5-37) U/L ALT (0-40) U/L Alkaline Phosphatase (39-117) U/L Troponin I High Sens < 2.7 (<3.5-35.0) ng/L Total Protein (6.5-8.0) g/dL Albumin (3.5-5.0) g/dL Lipase (8-78) U/L Urine Color Urine Appearance Urine pH (5.0-9.0) Ur Specific [place] (1.005-1.025) Urine Protein (Neg-Trace) mg/dL Urine Glucose (UA) (Negative) mg/dL Urine Ketones (Negative) mg/dL Urine Blood (Negative) Urine Nitrite (Negative) Ur Leukocyte Esterase (Negative) Urine RBC (0-2) /HPF Urine WBC (0-5) /HPF Ur Squamous Epith Cells (0-2) /HPF Urine Bacteria (None Seen) Hyaline Casts (0-2) /LPF C. difficile Tox B Gene (Negative) C. difficile Toxin A&B (Negative) C. difficile Interpret COVID-19 (ILIANA) (Negative) COVID-19 Clin Com Influenza Type A (RAMONITA) Negative (Negative) Influenza Type B (RAMONITA) Negative (Negative) Influenza A & B Note See Note S. pyogenes GrpA RAMONITA (Negative) 11/05/22 11/05/22 11/05/22 Range/Units 10:30 10:39 12:29 WBC (4.8-10.8) X10*3/uL RBC (4.60-5.80) X10*6/uL Hgb (14.0-18.0) g/dl Hct (42.0-52.0) % MCV (80.0-98.0) fL MCH (27.0-33.0) pg MCHC (31.0-36.0) g/dl RDW (11.0-16.0) % Plt Count (160-400) X10*3/uL MPV (9.4-12.4) fL Immature Gran % (Auto) (0.0-0.4) % Neut % (Auto) (45-73) % Lymph % (Auto) (20-40) % [place] % (Auto) (2-11) % Eos % (Auto) (0-4) % Baso % (Auto) (0-2) % Lymph # (Auto) (1.2-4.9) X10*3/uL [place] # (Auto) (0.1-1.2) X10*3/uL Eos # (Auto) (0.0-0.4) X10*3/uL Baso # (Auto) (0.0-0.2) X10*3/uL Abs Immat Gran (auto) (0.00-0.03) X10*3/uL Absolute Neuts (auto) (2.0-8.3) x10*3/uL Absolute Nucleated RBC (0.0-0.012) X10*3/uL Nucleated RBC % (auto) (0.0-0.2) /100WBC PT (10.0-13.1) SEC INR (0.9-1.1) APTT (26.0-36.4) SEC Sodium (135-145) mmol/L Potassium (3.3-5.1) mmol/L Chloride (96-108) mmol/L Carbon Dioxide (22-29) mmol/L Anion Gap (12-20) BUN (9-16) mg/dL Creatinine (0.5-1.4) mg/dL Estim Creat Clear Calc Estimated GFR Random Glucose (60-115) mg/dL Calcium (8.4-10.2) mg/dL Total Bilirubin (0.0-1.0) mg/dL AST (5-37) U/L ALT (0-40) U/L Alkaline Phosphatase (39-117) U/L Troponin I High Sens (<3.5-35.0) ng/L Total Protein (6.5-8.0) g/dL Albumin (3.5-5.0) g/dL Lipase (8-78) U/L Urine Color Yellow Urine Appearance Cloudy Urine pH 7.0 (5.0-9.0) Ur Specific [place] 1.015 (1.005-1.025) Urine Protein Negative (Neg-Trace) mg/dL Urine Glucose (UA) Negative (Negative) mg/dL Urine Ketones Negative (Negative) mg/dL Urine Blood Negative (Negative) Urine Nitrite Negative (Negative) Ur Leukocyte Esterase Moderate (2+) H (Negative) Urine RBC 0-2 (0-2) /HPF Urine WBC 6-10 H (0-5) /HPF Ur Squamous Epith Cells 3-5 (0-2) /HPF Urine Bacteria 4+ (None Seen) Hyaline Casts 3-5 (0-2) /LPF C. difficile Tox B Gene POSITIVE A* (Negative) C. difficile Toxin A&B Negative (Negative) C. difficile Interpret SEE NOTE COVID-19 (ILIANA) (Negative) COVID-19 Clin Com Influenza Type A ([facility]ONITA) (Negative) Influenza Type B ([facility]ONITA) (Negative) Influenza A & B Note S. pyogenes GrpA [facility]ONITA Negative (Negative) Independent Interpretation I performed an independent interpretation of an: Plain X-Ray Interpretation: My independent interpretation the patient's chest x-ray is left lower lobe infiltrate My independent interpretation patient's 12 EKG done at 08:17 hours is as follows: Atrial fibrillation with a rate of 81, normal QRS and QTC interval, no ST segment elevation, no ST segment depression, no PACs, no PVCs, no significant T-wave abnormalities Radiology Impression Discussion of test interpretation with radiology: I have reviewed the radiologist's reading. Radiologist Impression: XR chest 2V IMPRESSION: Patchy airspace opacities within the left lower lung. This is a nonspecific finding but may represent an infectious process. Follow-up radiographs recommended status post treatment to ensure resolution. Dictated By:Yoandy Love MD Discharge Plan Discharge Clinical Impression: Pneumonia, Chest pain Patient Disposition: er [facility] Instructions: Pneumonia (ED) Additional Instructions: Your white blood cell count was slightly elevated. Your chest x-ray is concerning for a left lower lobe pneumonia. I am treating you with Levaquin 500 mg, 1 pill once a day for 5 days. Your stool was positive for C difficile toxin B gene was positive but your C difficile toxin A and B assay was negative . This suggests that you are colonized with C difficile but you do not have an active infection of C difficile that is causing her diarrhea. Continue your medications as prescribed by your providers. Follow-up with your doctor in 2 days. Please return to the emergency department if your symptoms get worse or if you develop any symptoms that are concerning to you. Prescriptions: New levofloxacin 500 mg tablet 500 mg PO DAILY 5 Days Qty: 5 0RF No Action lorazepam [Ativan] 1 mg tablet 1 tab PO BEDTIME melatonin 5 mg capsule 2 cap PO BEDTIME mirtazapine 15 mg Tablet 15 mg PO BEDTIME atorvastatin 40 mg Tablet 40 mg PO BEDTIME gabapentin 400 mg Capsule 400 mg TID pantoprazole 40 mg Tablet,Delayed Release (Dr/Ec) 40 mg PO DAILY@1630 metoprolol tartrate 50 mg Tablet 50 mg PO BID Rx Instructions: HOLD IF SBP < 100 OR > 140 HOLD IF HR < 60 OR > 100 cetirizine 10 mg Tablet 10 mg PO DAILY docusate sodium 100 mg Capsule 100 mg PO BID furosemide 20 mg Tablet 20 mg PO DAILY PRN (Reason: fluid overload) Rx Instructions: NEEDED FOR WEIGHT GAIN > 3 POUNDS finasteride 5 mg Tablet 5 mg PO DAILY Xarelto 20 mg Tablet 20 mg PO BEDTIME Rx Instructions: must administer with evening meal midodrine 5 mg tablet 1 tab PO TIDAC azelastine 0.05 % Drops 1 drp OPHTHALMIC (EYE) Q12H PRN (Reason: Allergy Symptoms) acetaminophen 325 mg Tablet 650 mg PO TID albuterol sulfate 2.5 mg /3 mL (0.083 %) Solution For Nebulization 2.5 mg INHALATION Q8H PRN (Reason: Shortness Of Breath) polyvinyl alcohol 1.4 % Drops 1 drp OPHTHALMIC (EYE) DAILY sertraline 100 mg Tablet 100 mg PO DAILY Rx Instructions: tdd = 150 mg pseudoephedrine-guaifenesin [Mucus D] 60-600 mg Tablet Extended Release 12 Hr 1 tab PO BID PRN (Reason: Congestion) lamotrigine [Lamictal] 25 mg Tablet 25 mg PO BEDTIME Rx Instructions: tdd = 125 mg Biofreeze (menthol) 4 % Gel 1 appl TOPICAL BID Rx Instructions: apply a thin layer mid to lower back Biofreeze (menthol) 4 % Gel 1 appl TOPICAL Q2H PRN (Reason: Pain (Scale Score 1-3)) Rx Instructions: apply to mid lower back calcium carbonate 430 mg calcium (1,000 mg) Tablet,Chewable 430 mg PO Q8H PRN (Reason: Indigestion) tramadol 100 mg Tablet 100 mg PO Q6H PRN (Reason: Back Pain) furosemide 20 mg Tablet 20 mg PO DAILY Rx Instructions: HOLD FOR SBP< 100 OR > 140 HOLD IF HR < 60 OR > 100 lamotrigine [Lamictal] 100 mg Tablet 100 mg PO BEDTIME Rx Instructions: TAKE TOGETHER WITH 25 MG TAB TDD= 125 MG buspirone 15 mg tablet 1 tab PO TID budesonide-formoterol [Symbicort] 160-4.5 mcg/actuation Hfa Aerosol Inhaler 2 puff INHALATION BID baclofen 20 mg Tablet 20 mg PO BID sennosides [senna] 8.6 mg Tablet 8.6 mg PO BID Rx Instructions: HOLD FOR LOOSE BOWEL MOVEMENT Incruse Ellipta 62.5 mcg/actuation Blister With Device 1 inh INHALATION DAILY acetaminophen 325 mg Tablet 650 mg PO DAILY PRN (Reason: HEADACHE, fEVER > 100.4, BODY ACHES ) haloperidol 5 mg Tablet 5 mg PO TID Qty: 90 0RF lorazepam [Ativan] 0.5 mg tablet 0.5 mg PO BID PRN (Reason: anxiety) Qty: 30 0RF magnesium hydroxide [Milk of Magnesia] 400 mg/5 mL Suspension 30 ml PO DAILY PRN (Reason: Constipation) miconazole nitrate 2 % Ointment 1 appl TOPICAL BEDTIME PRN (Reason: skin integrity) bisacodyl 10 mg Suppository 10 mg [place] BID PRN (Reason: Constipation) olanzapine 10 mg tablet 10 mg PO Q8H PRN (Reason: agitation) prednisone 20 mg Tablet 40 mg PO DAILY Qty: 10 0RF cefuroxime axetil 500 mg tablet 500 mg PO BID Qty: 10 0RF lactulose 10 gram/15 mL (15 mL) solution 10 g PO BEDTIME PRN (Reason: laxative effect) Qty: 120 0RF doxycycline hyclate 100 mg capsule 100 mg PO BID Qty: 14 0RF
--- NOTE | 2022-11-05 08:04 | ECG_ITS ---
Test Reason : CHEST PAIN Blood Pressure : / mmHG Vent. Rate : 081 BPM Atrial Rate : 000 BPM P-R Int : 000 ms QRS Dur : 080 ms QT Int : 360 ms P-R-T Axes : 000 -01 109 degrees QTc Int : 418 ms Atrial fibrillation Cannot rule out Anterior infarct , age undetermined Abnormal ECG When compared with ECG of 10-OCT-2022 19:28, Nonspecific T wave abnormality now evident in Anterior leads QT has shortened Referred By: Tigre Horn Electronically Signed By:JAGDISH LIU MD
[2022-11-05] MEDS: LORazepam 2 MG/ML VIAL IVPUSH (08:47)
[2022-11-05 09:26] LABS: MANUAL DIFF FLAG NO
[2022-11-05 09:33] LABS: Basophils Absolute Auto 0.1 X10*3/uL (0.0-0.2); Basophils Percent Auto 0.6 % (0-2); Eosinophils Absolute Auto 0.1 X10*3/uL (0.0-0.4); Eosinophils Percent Auto 1.3 % (0-4); Hematocrit 37.9 % (42.0-52.0); Hemoglobin 12.2 g/dl (14.0-18.0); Imm Gran Abs Auto 0.06 X10*3/uL (0.00-0.03); Imm Gran Pct Auto 0.5 % (0.0-0.4); Lymphocytes Absolute Auto 3.7 X10*3/uL (1.2-4.9); Lymphocytes Percent Auto 33.5 % (20-40); Mean Corpuscular HGB Conc 32.2 g/dl (31.0-36.0); Mean Corpuscular Hemoglobin 29.7 pg (27.0-33.0); Mean Corpuscular Volume 92.2 fL (80.0-98.0); Monocytes Absolute Auto 0.8 X10*3/uL (0.1-1.2); Monocytes Percent Auto 6.9 % (2-11); Neutrophils Absolute Auto 6.3 x10*3/uL (2.0-8.3); Neutrophils Percent Auto 57.2 % (45-73); Platelet Count 240 X10*3/uL (160-400); Red Blood Count 4.11 X10*6/uL (4.60-5.80); Red Cell Distribution Width 14.3 % (11.0-16.0)
[2022-11-05 09:39] LABS: INTERNATIONAL NORM RATIO 2.1 (0.9-1.1); Prothrombin Time 24.4 SEC (10.0-13.1)
[2022-11-05 09:42] LABS: Partial Thromboplastin Time 40.2 SEC (26.0-36.4)
[2022-11-05 09:48] LABS: COVID-19 Test Negative (Negative); IDNOW Serial# 08D9AD1C
[2022-11-05 09:49] LABS: Alanine Aminotransferase 12 U/L (0-40); Albumin Level 3.7 g/dL (3.5-5.0); Alkaline Phosphatase 123 U/L (39-117); Anion Gap 10 (12-20); Aspartate Amino Transferase 10 U/L (5-37); Blood Urea Nitrogen 7 mg/dL (9-16); Calcium 8.7 mg/dL (8.4-10.2); Carbon Dioxide 27 mmol/L (22-29); Chloride 107 mmol/L (96-108); Creatinine Clr Calc Pharmacy 147.7; Estimated Glomerular Filt Rate > 60; Glucose Random 102 mg/dL (60-115); Lipase 11 U/L (8-78); Potassium 3.3 mmol/L (3.3-5.1); Sodium 141 mmol/L (135-145); Total Protein 5.9 g/dL (6.5-8.0)
[2022-11-05 09:59] LABS: IDNOW Serial# BCCEAD1C; Influenza A Negative (Negative); Influenza B2 Negative (Negative)
[2022-11-05 10:04] LABS: Troponin-I High Sensitivity < 2.7 ng/L (<3.5-35.0)
[2022-11-05 10:32] VITALS: BP 113/79; PULSE 78; RESP 18; TEMP 37.2; O2SAT 94
[2022-11-05 10:48] LABS: Appearance Urine Cloudy; Color Urine Yellow; Glucose Urine UA Negative (Negative); Leukocyte Esterase Urine Moderate (2+) (Negative); Nitrite Urine Negative (Negative); Specific Gravity - Urine 1.015 (1.005-1.025); UMIC TRIGGER UACC YES; Urine Blood Negative (Negative); Urine Ketones Negative (Negative); Urine Protein Negative (Neg-Trace)
[2022-11-05 10:50] LABS: Bacteria Urine 4+ (None Seen); RBC Urine 0-2 /HPF (0-2); UACC Culture Trigger YES
[2022-11-05 11:16] LABS: IDNOW Serial# 6674DD1D; Strep A Nucleic Acid Negative (Negative)
[2022-11-05 12:10] VITALS: BP 133/88; PULSE 78; RESP 17; TEMP 36.9; O2SAT 95
--- NOTE | 2022-11-05 12:46 | MHC.EDTECH ---
this pct tried to put patients o2 back on and patient refused i explained how important it is to keep his oxygen on and patient stated he doesnt care and doesn't want it on RN aware
[2022-11-05 14:06] LABS: CDiff Gene PCR POSITIVE (Negative)
[2022-11-05] MEDS: LORazepam 2 MG/ML VIAL 1 MG IVPUSH (14:20)
[2022-11-05 14:44] LABS: CDIFF Internal ctrl Dots and bkg OK (V); CDiff Toxin Negative (Negative)
[2022-11-05 14:45] VITALS: BP 130/79; PULSE 75; RESP 17; TEMP 36.6; O2SAT 95
[2022-11-05 16:21] VITALS: BP 134/82; PULSE 91; RESP 17; TEMP 36.6; O2SAT 95
[2022-11-05] MEDS: levoFLOXacin 500 MG TABLET PO (17:19)
== END 2022-11-05 17:54 ==
PROVIDERS: Emergency Provider Emergency Medicine Emergency Medical Services; PCP Family Medicine
DX: R07.89 Other chest pain (principal); M54.50 Low back pain, unspecified; Z20.822 Contact with and (suspected) exposure to COVID-19; Z20.828 Contact with and (suspected) exposure to other viral communicable diseases; Z79.899 Other long term (current) drug therapy; Z87.891 Personal history of nicotine dependence
CPT/HCPCS: 71046; 80053; 81001; 83690; 84484; 85025; 85610; 85730; 87086; 87324; 87493; 87502; 87635; 87651; 93005; 99285; J2060

== ENCOUNTER 2022-11-10 16:45 | Emergency (ER) | payer OTHER, SELFPAY ==
--- NOTE | ~2022-11-10 | XR_ITS ---
EXAMINATION: XR CHEST CLINICAL INFORMATION: Chest pain COMPARISON: X-ray 11/05/2022 TECHNIQUE: Frontal view of the chest was obtained. FINDINGS: Prominent cardiac and mediastinal silhouette, unchanged from previous. There is central vascular prominence and interstitial prominence, with persistent patchy opacities in the left mid/lower lung. Findings could reflect mild interstitial pulmonary edema. No significant pleural effusion. No pneumothorax. XR/XR chest 1V IMPRESSION: Vascular and interstitial prominence suggesting interstitial pulmonary edema. Persistent patchy opacity left lower lung, could related to pulmonary edema versus infectious/inflammatory process. Recommendation is for a follow-up chest series to be obtained following treatment and/or resolution of symptoms to assure resolution of this appearance.
--- NOTE | ~2022-11-10 | CT_ITS ---
EXAMINATION: NONCONTRAST HEAD CT NONCONTRAST CERVICAL SPINE CT INDICATION INFORMATION: Fall COMPARISON: 10/10/2022 TECHNIQUE: Separate noncontrast CT examinations of the head and cervical spine were performed. Coronal and sagittal images were created for each examination at the technologist workstation. This CT examination was performed using dose optimization techniques as appropriate, variously including the following: *Automated exposure control *Adjustment of mA and/or kV according to patient size (this includes techniques or standardized protocols for targeted exams where dose is matched to indication/reason for exam; i.e. extremities or head) *Use of iterative reconstruction technique DLP: 1885 mGy-cm FINDINGS: Head: Prior right craniotomy. Underlying encephalomalacia throughout the right MCA territory. Chronic collection which is high attenuation deep to the craniotomy along the high convexity. This is unchanged. There is no evidence of acute intracranial hemorrhage or territorial infarction. No abnormal mass effect or midline shift is seen. [place] to white matter differentiation is well preserved. No extra-axial fluid collections are identified. No hydrocephalus. Proportional prominence of the ventricles and sulcal spaces is consistent with mild volume loss. Patchy periventricular and deep white matter hypoattenuation is consistent with mild small vessel ischemic changes. No acute osseous or soft tissue abnormality. The mastoid air cells and visualized portions of the paranasal sinuses are well aerated. Cervical spine: There is anatomic alignment of the vertebral bodies and posterior elements. The atlantoaxial and atlantooccipital articulations are intact. Vertebral body heights are maintained. There is multilevel intervertebral disc space narrowing with endplate osteophyte formation and facet arthropathy. No evidence of acute fracture. No prevertebral soft tissue swelling. Emphysema noted at the lung apices with scarring.. The thyroid gland is unremarkable. CT/CT cervical spine wo IV con IMPRESSION: 1. No acute intracranial finding. 2. No acute fracture or malalignment of the cervical spine. Mild degenerative change.
[2022-11-10 16:56] VITALS: BP 96/63; PULSE 80; RESP 16; TEMP 37.2; O2SAT 95; BMI 26.1
--- NOTE | 2022-11-10 17:09 | ECG_ITS ---
Test Reason : FALL Blood Pressure : / mmHG Vent. Rate : 075 BPM Atrial Rate : 000 BPM P-R Int : 000 ms QRS Dur : 080 ms QT Int : 402 ms P-R-T Axes : 000 -05 -06 degrees QTc Int : 448 ms Atrial fibrillation Nonspecific ST and T wave abnormality Abnormal ECG When compared with ECG of 05-NOV-2022 08:17, Nonspecific T wave abnormality no longer evident in Lateral leads Referred By: Chai Blood Electronically Signed By:Jaylan Rouse
--- NOTE | 2022-11-10 17:10 | ED.CHESTPAIN ---
HPI - Chest Pain General Chief Complaint: Chest Pain Stated Complaint: fall Time Seen by Provider: 11/10/22 16:57 Source: patient and EMS Limitations: altered mental status History of Present Illness HPI narrative: 57-year-old with history of traumatic brain injury found on the bottoms bed per EMS was discombobulated. Patient does have some altered mental status at baseline only complaint is chest pain patient seen here 4 days for ago for a similar complaint of waking to a.m. patient has no noted fever patient had negative troponins was found to have a possible pneumonia start antibiotics sent back to long-term care facility 4 days ago. MD complaint: chest pain Related Data Home Medications Medication Instructions Recorded Confirmed atorvastatin 40 mg tablet 40 mg PO BEDTIME 02/28/22 11/10/22 gabapentin 400 mg capsule 400 mg TID 02/28/22 11/10/22 lorazepam 1 mg tablet (Ativan) 1 tab PO BID 02/28/22 08/05/22 melatonin 5 mg capsule 2 cap PO BEDTIME 02/28/22 11/10/22 metoprolol tartrate 50 mg tablet 50 mg PO BID 02/28/22 11/10/22 mirtazapine 15 mg tablet 15 mg PO BEDTIME 02/28/22 11/10/22 pantoprazole 40 mg tablet,delayed 40 mg PO DAILY@1630 02/28/22 11/10/22 release cetirizine 10 mg tablet 10 mg PO DAILY 03/01/22 11/10/22 finasteride 5 mg tablet 5 mg PO DAILY 03/01/22 11/10/22 midodrine 5 mg tablet 1 tab PO TIDAC 03/01/22 11/10/22 rivaroxaban 20 mg tablet (Xarelto) 20 mg PO DAILY@1800 03/01/22 11/10/22 furosemide 20 mg tablet 20 mg PO DAILY 03/28/22 11/10/22 lamotrigine 100 mg tablet 100 mg PO BEDTIME 03/28/22 11/10/22 (Lamictal) lamotrigine 25 mg tablet (Lamictal) 25 mg PO BEDTIME 03/28/22 11/10/22 sertraline 100 mg tablet 100 mg PO DAILY 03/28/22 11/10/22 tramadol 100 mg tablet 100 mg PO Q6H PRN Back Pain 03/28/22 11/10/22 acetaminophen 325 mg tablet 650 mg PO DAILY PRN HEADACHE, 07/17/22 11/10/22 fEVER > 100.4, BODY ACHES baclofen 20 mg tablet 20 mg PO BID 07/17/22 11/10/22 budesonide-formoterol HFA 160 2 puff inhalation BID 07/17/22 11/10/22 mcg-4.5 mcg/actuation aerosol inhaler (Symbicort) buspirone 15 mg tablet 1 tab PO TID 07/17/22 11/10/22 umeclidinium 62.5 mcg/actuation 1 inh inhalation DAILY 07/17/22 11/10/22 blister powder for inhalation (Incruse Ellipta) albuterol sulfate 2.5 mg/3 mL 2.5 mg inhalation Q6H PRN 11/10/22 11/10/22 (0.083 %) solution for nebulization Shortness Of Breath Or Wheezing clonidine HCl 0.1 mg tablet 0.1 mg PO TID 11/10/22 11/10/22 levetiracetam 500 mg tablet 500 mg PO BID 11/10/22 11/10/22 sennosides 8.6 mg-docusate sodium 2 tab PO BID 11/10/22 11/10/22 50 mg tablet (Stimulant Laxative Plus) Previous Rx's Medication Instructions Recorded haloperidol 5 mg tablet 5 mg PO TID #90 tabs 07/23/22 Allergies Allergy/AdvReac Type Severity Reaction Status Date / Time No Known Allergies Allergy Verified 09/12/22 17:33 Review of Systems Review of Systems: Review of systems: General: Patient denies any fever chills recent illness or falls Musculoskeletal: Denies back pain or body aches or other injuries HEENT: denies headache, runny nose, ear pain Respiratory: denies shortness of breath, cough Cardiovascular: no chest pain or palpitations : denies dysuria, frequency Abdomen: no nausea vomiting denies abdominal pain Extremities: no swelling, no pain Skin: no diaphoresis Yes all other systems are reviewed and are negative PMFSH Past Medical History Medical History Afib Anxiety disorder CHF (congestive heart failure) Cognitive disorder COPD (chronic obstructive pulmonary disease) CVA (cerebrovascular accident) Mood disorder as late effect of traumatic brain injury Traumatic brain injury Social History Social History Household Members: Unknown / Unable to assess Housing: Other Housing Other:: long term Unable to assess alcohol history related to: Unable to respond Alcohol intake: never Patient Tobacco Use Status: Former Tobacco user Smoked in Last 30 Days: No Use of substances other than those prescribed or required for medical reasons: No Substance Use Type: Unknown Advance Directives: Yes Advance Directives on File: Yes Advance Directives Date on File: 11/11/21 service: No Current occupational status: disabled Physical Exam Vital Signs: Vital Signs: Last Vital Signs Temp 99.0 F 11/10/22 16:56 Pulse 80 11/10/22 16:56 Resp 19 11/10/22 20:56 BP 96/63 11/10/22 16:56 Pulse Ox 95 11/10/22 16:56 O2 Del Method Nasal Cannula 11/10/22 16:56 Oxygen Flow Rate 2 11/10/22 16:56 BMI result Body Mass Index 26.1 Neurological exam: CN II- XII tested. Patient is alert and oriented to person place and time. Patient has no dysphagia or dysarthia, denies good vision in all four vision ye no nystagmus on exam, good strength to upper and lower extremities with normal reflexes to brachioradialis, wrist, patella and achilles. Negative romberg, good finger to nose and heel to burgos. General: Well-appearing well-nourished in no signs of distress HEENT: Normocephalic atraumatic Neck: No signs of JVD, no masses no tenderness or lymphadenopathy Cardiovascular: Regular rate and rhythm Respiratory: Clear to auscultation bilaterally Abdomen: Soft nontender no masses Extremities: Normal pedal pulses no signs of edema Skin: Dry warm no rashes Back: No tenderness full ROM Course Reevaluation(s) Reevaluation #1: XR shows interstitial edema I will add on bnp. BNP is normal Patient looks well I will send home [facility] P[facility] follow up. Medications Administered Discontinued Medications Generic Name Dose Route Start Last Admin Trade Name Freq PRN Reason Stop Dose Admin Sodium Chloride 1,000 mls @ 999 mls/hr 11/10/22 17:15 11/10/22 19:05 Ns IV 11/10/22 18:15 Infused .Q1H1M [facility] Infusion Medical Decision Making Medical Decision Making [facility] Narrative: Patient found down on the wound bed this could be rhabdomyolysis ensure a long-time patient Ann but also could be head injury of a CT scan had an chest x-ray no workup for myocardial infarction that was unremarkable. I will repeat but with trauma evaluation. Differential Diagnosis Differential Diagnoses: The differential diagnosis associated with the presentation includes ACS head injury neck injury chest injury rib fractures Admission/Observation Consideration of admission/observation: Escalation of care including admission/observation considered Lab Data [facility] Lab Attestation statement: I reviewed the patient's lab results. 11/10/22 17:27 11/10/22 17:27 Labs: Lab Results 11/10/22 11/10/22 11/10/22 Range/Units 17:27 17:27 17:27 WBC 7.9 (4.8-10.8) X10*3/uL RBC 4.45 L (4.60-5.80) X10*6/uL Hgb 13.1 L (14.0-18.0) g/dl Hct 40.4 L (42.0-52.0) % MCV 90.8 (80.0-98.0) fL MCH 29.4 (27.0-33.0) pg MCHC 32.4 (31.0-36.0) g/dl RDW 13.6 (11.0-16.0) % Plt Count 287 (160-400) X10*3/uL MPV 9.7 (9.4-12.4) fL Immature Gran % (Auto) 1.1 H (0.0-0.4) % Neut % (Auto) 56.9 (45-73) % Lymph % (Auto) 35.8 (20-40) % Woodruff % (Auto) 4.9 (2-11) % Eos % (Auto) 0.8 (0-4) % Baso % (Auto) 0.5 (0-2) % Lymph # (Auto) 2.8 (1.2-4.9) X10*3/uL Woodruff # (Auto) 0.4 (0.1-1.2) X10*3/uL Eos # (Auto) 0.1 (0.0-0.4) X10*3/uL Baso # (Auto) 0.0 (0.0-0.2) X10*3/uL Abs Immat Gran (auto) 0.09 H (0.00-0.03) X10*3/uL Absolute Neuts (auto) 4.5 (2.0-8.3) x10*3/uL Absolute Nucleated RBC 0.000 (0.0-0.012) X10*3/uL Nucleated RBC % (auto) 0.0 (0.0-0.2) /100WBC Sodium 144 (135-145) mmol/L Potassium 3.8 (3.3-5.1) mmol/L Chloride 108 (96-108) mmol/L Carbon Dioxide 27 (22-29) mmol/L Anion Gap 13 (12-20) BUN 7 L (9-16) mg/dL Creatinine 0.78 (0.5-1.4) mg/dL Estim Creat Clear Calc 124.4 Estimated GFR > 60 Random Glucose 109 (60-115) mg/dL Calcium 9.3 D (8.4-10.2) mg/dL Total Bilirubin 0.7 (0.0-1.0) mg/dL Direct Bilirubin 0.2 (0.0-0.5) mg/dL AST 15 (5-37) U/L ALT 14 (0-40) U/L Alkaline Phosphatase 114 (39-117) U/L Total Creatine Kinase 46 (38-174) U/L Troponin I High Sens < 2.7 (<3.5-35.0) ng/L B-Natriuretic Peptide (<100) pg/mL Total Protein 6.3 L (6.5-8.0) g/dL Albumin 3.9 (3.5-5.0) g/dL Lipase 12 (8-78) U/L /11/27 Range/Units 20:40 WBC (4.8-10.8) X10*3/uL RBC (4.60-5.80) X10*6/uL Hgb (14.0-18.0) g/dl Hct (42.0-52.0) % MCV (80.0-98.0) fL MCH (27.0-33.0) pg MCHC (31.0-36.0) g/dl RDW (11.0-16.0) % Plt Count (160-400) X10*3/uL MPV (9.4-12.4) fL Immature Gran % (Auto) (0.0-0.4) % Neut % (Auto) (45-73) % Lymph % (Auto) (20-40) % Woodruff % (Auto) (2-11) % Eos % (Auto) (0-4) % Baso % (Auto) (0-2) % Lymph # (Auto) (1.2-4.9) X10*3/uL Woodruff # (Auto) (0.1-1.2) X10*3/uL Eos # (Auto) (0.0-0.4) X10*3/uL Baso # (Auto) (0.0-0.2) X10*3/uL Abs Immat Gran (auto) (0.00-0.03) X10*3/uL Absolute Neuts (auto) (2.0-8.3) x10*3/uL Absolute Nucleated RBC (0.0-0.012) X10*3/uL Nucleated RBC % (auto) (0.0-0.2) /100WBC Sodium (135-145) mmol/L Potassium (3.3-5.1) mmol/L Chloride (96-108) mmol/L Carbon Dioxide (22-29) mmol/L Anion Gap (12-20) BUN (9-16) mg/dL Creatinine (0.5-1.4) mg/dL Estim Creat Clear Calc Estimated GFR Random Glucose (60-115) mg/dL Calcium (8.4-10.2) mg/dL Total Bilirubin (0.0-1.0) mg/dL Direct Bilirubin (0.0-0.5) mg/dL AST (5-37) U/L ALT (0-40) U/L Alkaline Phosphatase (39-117) U/L Total Creatine Kinase (38-174) U/L Troponin I High Sens (<3.5-35.0) ng/L B-Natriuretic Peptide 85 (<100) pg/mL Total Protein (6.5-8.0) g/dL Albumin (3.5-5.0) g/dL Lipase (8-78) U/L Independent Interpretation I performed an independent interpretation of an: Plain X-Ray Interpretation: XR shows interstitial pattern. I will add on BNP Scores Heart Score History: -0- slightly suspicious ECG: -0- normal Age: -1- >45 - <65 Risk factory: -1- 1 or 2 risk factors Troponin: -0- < or = normal limit Score: 2 Risk: 1.7% Discharge Plan Discharge Clinical Impression: Fall, Chest pain Patient Disposition: Home, Self-Care Instructions: Chest Pain (DC), Fall Prevention (ED) Additional Instructions: You were seen in the ED after being found on the ground and complaining of chest pain. You had CT XR and labs which were all normal Please call to follow up with your doctor. If you have any other concerns please return to the ED. Prescriptions: No Action lorazepam [Ativan] 1 mg tablet 1 tab PO BID melatonin 5 mg capsule 2 cap PO BEDTIME mirtazapine 15 mg Tablet 15 mg PO BEDTIME atorvastatin 40 mg Tablet 40 mg PO BEDTIME gabapentin 400 mg Capsule 400 mg TID pantoprazole 40 mg Tablet,Delayed Release (Dr/Ec) 40 mg PO DAILY@1630 metoprolol tartrate 50 mg Tablet 50 mg PO BID Rx Instructions: HOLD IF SBP < 100 OR > 140 HOLD IF HR < 60 OR > 100 cetirizine 10 mg Tablet 10 mg PO DAILY finasteride 5 mg Tablet 5 mg PO DAILY Xarelto 20 mg Tablet 20 mg PO DAILY@1800 Rx Instructions: must administer with evening meal midodrine 5 mg tablet 1 tab PO TIDAC sertraline 100 mg Tablet 100 mg PO DAILY lamotrigine [Lamictal] 25 mg Tablet 25 mg PO BEDTIME Rx Instructions: tdd = 125 mg tramadol 100 mg Tablet 100 mg PO Q6H PRN (Reason: Back Pain) furosemide 20 mg Tablet 20 mg PO DAILY Rx Instructions: HOLD FOR SBP< 100 OR > 140 HOLD IF HR < 60 OR > 100 lamotrigine [Lamictal] 100 mg Tablet 100 mg PO BEDTIME Rx Instructions: TAKE TOGETHER WITH 25 MG TAB TDD= 125 MG buspirone 15 mg tablet 1 tab PO TID budesonide-formoterol [Symbicort] 160-4.5 mcg/actuation Hfa Aerosol Inhaler 2 puff INHALATION BID baclofen 20 mg Tablet 20 mg PO BID Incruse Ellipta 62.5 mcg/actuation Blister With Device 1 inh INHALATION DAILY acetaminophen 325 mg Tablet 650 mg PO DAILY PRN (Reason: HEADACHE, fEVER > 100.4, BODY ACHES ) haloperidol 5 mg Tablet 5 mg PO TID Qty: 90 0RF levetiracetam 500 mg tablet 500 mg PO BID sennosides-docusate sodium [Stimulant Laxative Plus] 8.6-50 mg tablet 2 tab PO BID clonidine HCl 0.1 mg tablet 0.1 mg PO TID albuterol sulfate 2.5 mg /3 mL (0.083 %) solution for nebulization 2.5 mg inhalation Q6H PRN (Reason: Shortness Of Breath Or Wheezing)
[2022-11-10] MEDS: 0.9 % Sodium Chloride 1,000 ML 999 ML IV (17:30)
[2022-11-10 17:32] LABS: MANUAL DIFF FLAG NO
[2022-11-10 17:36] LABS: Basophils Percent Auto 0.5 % (0-2); Eosinophils Absolute Auto 0.1 X10*3/uL (0.0-0.4); Eosinophils Percent Auto 0.8 % (0-4); Hematocrit 40.4 % (42.0-52.0); Hemoglobin 13.1 g/dl (14.0-18.0); Imm Gran Abs Auto 0.09 X10*3/uL (0.00-0.03); Imm Gran Pct Auto 1.1 % (0.0-0.4); Lymphocytes Absolute Auto 2.8 X10*3/uL (1.2-4.9); Lymphocytes Percent Auto 35.8 % (20-40); Mean Corpuscular HGB Conc 32.4 g/dl (31.0-36.0); Mean Corpuscular Hemoglobin 29.4 pg (27.0-33.0); Mean Corpuscular Volume 90.8 fL (80.0-98.0); Mean Platelet Volume 9.7 fL (9.4-12.4); Monocytes Absolute Auto 0.4 X10*3/uL (0.1-1.2); Monocytes Percent Auto 4.9 % (2-11); Neutrophils Absolute Auto 4.5 x10*3/uL (2.0-8.3); Neutrophils Percent Auto 56.9 % (45-73); Platelet Count 287 X10*3/uL (160-400); Red Blood Count 4.45 X10*6/uL (4.60-5.80); Red Cell Distribution Width 13.6 % (11.0-16.0); White Blood Count 7.9 X10*3/uL (4.8-10.8)
[2022-11-10 17:49] LABS: Alanine Aminotransferase 14 U/L (0-40); Albumin Level 3.9 g/dL (3.5-5.0); Alkaline Phosphatase 114 U/L (39-117); Anion Gap 13 (12-20); Aspartate Amino Transferase 15 U/L (5-37); Bilirubin Direct 0.2 mg/dL (0.0-0.5); Bilirubin Total 0.7 mg/dL (0.0-1.0); Blood Urea Nitrogen 7 mg/dL (9-16); Calcium 9.3 mg/dL (8.4-10.2); Carbon Dioxide 27 mmol/L (22-29); Chloride 108 mmol/L (96-108); Creatinine Clr Calc Pharmacy 124.4; Estimated Glomerular Filt Rate > 60; Glucose Random 109 mg/dL (60-115); Lipase 12 U/L (8-78); Potassium 3.8 mmol/L (3.3-5.1); Sodium 144 mmol/L (135-145); Total Protein 6.3 g/dL (6.5-8.0)
[2022-11-10 18:04] LABS: Troponin-I High Sensitivity < 2.7 ng/L (<3.5-35.0)
[2022-11-10 18:59] VITALS: RESP 17
--- NOTE | 2022-11-10 19:05 | PC.NURSE ---
Patient call light addressed. Patient requested 2 blankets, blankets given. Voices no other concerns or needs.
--- NOTE | 2022-11-10 19:08 | PC.NURSE ---
Patient calling for nurse. Went into patient room and educated patient on use of call system. When asked if patient needed anything he voiced he didn't need anything.
--- NOTE | 2022-11-10 19:28 | PC.NURSE ---
Patient calling for nurse. Went into patient room and reenforced education on use of call system. Patient denies having any needs at this time.
--- NOTE | 2022-11-10 19:53 | PC.NURSE ---
Patient calling for nurse. Went into patient room and again reenforced education on use of call system. Patient continues to deny having any needs at this time. Stated that he just wanted to see if people would come into room.
--- NOTE | 2022-11-10 20:28 | PC.NURSE ---
Patient calling for nurse. Went into patient room and reenforced education on use of call system. Patient states he wants to speak with Maddy. I asked who Maddy was and said the lady that is at his house. Patient could give no further information.
[2022-11-10 20:56] VITALS: RESP 19
[2022-11-10 21:27] LABS: B Type Natriuretic Peptide 85 pg/mL (<100)
--- NOTE | 2022-11-10 22:00 | MHC.EDTECH ---
Call out to [facility] @[id number] to book bls transport back to detention ([address], [place]) spoke to Delfina from dispatch who informed me transport will be here shortly.
== END 2022-11-10 23:05 | disposition home or self-care (01) ==
PROVIDERS: Emergency Provider Student in an Organized Health Care Education/Training Program
DX: R07.9 Chest pain, unspecified (principal); Z91.81 History of falling; I48.91 Unspecified atrial fibrillation; Z87.891 Personal history of nicotine dependence; Z87.820 Personal history of traumatic brain injury
CPT/HCPCS: 36415; 70450; 71045; 72125; 80048; 80076; 82550; 83690; 83880; 84484; 85025; 93005; 96360; 96361; 99284; 99285

== ENCOUNTER 2022-11-17 16:51 | Emergency (ER) | payer OTHER, SELFPAY ==
--- NOTE | ~2022-11-17 | CT_ITS ---
EXAMINATION: CT HEAD WITHOUT CONTRAST CT CERVICAL SPINE WITHOUT CONTRAST CLINICAL INFORMATION: Trauma. COMPARISON: CT head and neck 11/10/2022. TECHNIQUE: Contiguous axial imaging was performed from the skull base to vertex without intravenous administration of contrast. Contiguous axial imaging was performed from the upper chest through the skull base without intravenous administration of contrast. Coronal and sagittal reformats were obtained at the acquisition workstation. This CT examination was performed using dose optimization techniques as appropriate, variously including the following: *Automated exposure control *Adjustment of mA and/or kV according to patient size (this includes techniques or standardized protocols for targeted exams where dose is matched to indication/reason for exam; i.e. extremities or head) *Use of iterative reconstruction technique DLP: 792 and 594 mGy-cm FINDINGS: Head: Changes of prior right hemispheric craniotomy. Chronic small extradural collection subjacent to the craniotomy flap chronic cystic encephalomalacia throughout a large territory of the right MCA. No evidence of acute intracranial hemorrhage or edematous territorial infarction. A few foci of hypoattenuation in the periventricular and deep white matter are consistent with mild microangiopathy. Unchanged ex vacuo dilatation of the right lateral ventricle. Otherwise, proportional prominence of the ventricles and sulcal spaces. No evidence for obstructive hydrocephalus. No abnormal mass effect or midline shift. No acute soft tissue or osseous abnormalities. The mastoid air cells and paranasal sinuses are clear. Cervical Spine: The atlantooccipital and atlantoaxial articulations remain well aligned. Straightening of the normal cervical lordosis. Otherwise, there is anatomic alignment of the vertebral bodies and posterior elements. No evidence of acute fracture or subluxation. Moderate multilevel cervical spondylosis with various degrees of neural foraminal encroachment and central spinal canal stenosis. There is no prevertebral soft tissue swelling. Limited evaluation of the thyroid gland due to motion. Remaining cervical soft tissues are normal in appearance. Limited evaluation of the lung apices due to motion. CT/CT cervical spine wo IV con IMPRESSION: 1. No acute intracranial pathology. 2. No acute cervical spinal fractures or malalignment. 3. Chronic changes from right hemispheric craniotomy with a large territory of cystic encephalomalacia. 4. Cervical spondylosis.
--- NOTE | ~2022-11-17 | XR_ITS ---
EXAMINATION: PELVIS AND LEFT HIP, LEFT SHOULDER CLINICAL INFORMATION: Pain COMPARISON: Left hip 10/10/2022 TECHNIQUE: Single view pelvis with 2 additional views left hip, 3 views left shoulder FINDINGS: No significant bone, joint or soft tissue abnormality is seen. XR/XR shoulder LT min 2V IMPRESSION: Negative radiographs of the left shoulder as well as the pelvis and left hip.
--- NOTE | ~2022-11-17 | XR_ITS ---
EXAMINATION: PELVIS AND LEFT HIP, LEFT SHOULDER CLINICAL INFORMATION: Pain COMPARISON: Left hip 10/10/2022 TECHNIQUE: Single view pelvis with 2 additional views left hip, 3 views left shoulder FINDINGS: No significant bone, joint or soft tissue abnormality is seen. XR/XR hip LT min 2V IMPRESSION: Negative radiographs of the left shoulder as well as the pelvis and left hip.
[2022-11-17 16:55] VITALS: BP 150/90; PULSE 82; O2SAT 91
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
[2022-11-17 17:41] VITALS: BP 105/73; PULSE 87; RESP 16; TEMP 37; O2SAT 94; BMI 23.1
[2022-11-17 18:34] VITALS: BP 105/73; PULSE 87; RESP 18; O2SAT 98
--- NOTE | 2022-11-17 20:27 | PC.NURSE ---
Called non emergency [place] PD line and they states they wont come out here tonight. States they will take a statement from pt at the facility when he returns.
--- NOTE | 2022-11-17 20:49 | PC.NURSE ---
Elsa made aware of pts return back to facility.
[2022-11-17 21:15] VITALS: BP 121/79; PULSE 82; RESP 18; O2SAT 98
== END 2022-11-17 21:29 | disposition home or self-care (01) ==
PROVIDERS: Emergency Provider Emergency Medicine; PCP Family Medicine
DX: M25.512 Pain in left shoulder (principal); M25.552 Pain in left hip; M54.2 Cervicalgia; R51.9 Headache, unspecified; Z87.891 Personal history of nicotine dependence; Z79.899 Other long term (current) drug therapy
CPT/HCPCS: 70450; 72125; 73030; 73502; 99284

== ENCOUNTER 2022-11-18 08:54 | Emergency (ER) | payer OTHER, SELFPAY ==
[2022-11-18] VITALS (7 sets, daily range): BP systolic 96–123; BP diastolic 65–83; PULSE 63–90; RESP 16–18; TEMP 36.5–36.8; O2SAT 94–96; BMI 28.9
--- NOTE | ~2022-11-18 | XR_ITS ---
EXAMINATION: XR CHEST CLINICAL INFORMATION: Acute chest pain COMPARISON: 11/10/2022 TECHNIQUE: Frontal view of the chest was obtained. FINDINGS: Compared to the prior study, lung volumes have decreased. The heart remains enlarged. There is increased prominence of the interstitium with vascular blurring. Left basilar atelectasis is present. Small pleural effusions cannot be excluded. XR/XR chest 1V IMPRESSION: Cardiomegaly with mild CHF. Left basilar atelectasis.
--- NOTE | 2022-11-18 09:31 | ECG_ITS ---
Test Reason : CHEST PAIN Blood Pressure : / mmHG Vent. Rate : 072 BPM Atrial Rate : 000 BPM P-R Int : 000 ms QRS Dur : 086 ms QT Int : 392 ms P-R-T Axes : 000 007 007 degrees QTc Int : 429 ms Atrial fibrillation Low voltage QRS Nonspecific ST abnormality Abnormal ECG When compared with ECG of 10-NOV-2022 17:16, No significant change was found Referred By: Billy Jim Electronically Signed By:JAGDISH LIU MD
--- NOTE | 2022-11-18 09:32 | ED_ITS ---
HPI - Chest Pain General Chief Complaint: Chest Pain Stated Complaint: Chest pain, fall yest, from senior living per EMS Time Seen by Provider: 11/18/22 09:02 Source: patient and EMS Mode of arrival: EMS Limitations: no limitations History of Present Illness HPI narrative: 67-year-old male with history of CVA, left-sided hemiparesis, permanent atrial fibrillation on anticoagulation, chronic diastolic dysfunction, COPD with chronic hypoxia on oxygen, mood disorder and traumatic brain injury presents with chest pain. Chest pain started to o'clock this morning. Patient describes the pain as mild. Does not radiate. There is no clear rib relieving or exacerbating features. However, he states that people make his pain worse and no people makes his pain better. He denies any new difficulty breathing, cough or mucus production. No fevers or chills. He has had episodes like this in the past. The pain is described as achy in nature as well. MD complaint: chest pain Onset (ago): hour(s) (8) Timing of current episode: constant Prior episodes: Yes Onset: during rest Pain location: substernal Pain radiation: none Severity: mild Quality: aching Relieving factors: other ( no people ) Exacerbating factors: other ( people ) Treatment prior to arrival: none Related Data Home Medications Medication Instructions Recorded Confirmed atorvastatin 40 mg tablet 40 mg PO BEDTIME 02/28/22 11/18/22 gabapentin 400 mg capsule 400 mg TID 02/28/22 11/18/22 lorazepam 1 mg tablet (Ativan) 1 tab PO BID 02/28/22 11/18/22 melatonin 5 mg capsule 2 cap PO BEDTIME 02/28/22 11/18/22 metoprolol tartrate 50 mg tablet 50 mg PO BID 02/28/22 11/18/22 mirtazapine 15 mg tablet 15 mg PO BEDTIME 02/28/22 11/18/22 pantoprazole 40 mg tablet,delayed 40 mg PO DAILY@1630 02/28/22 11/18/22 release cetirizine 10 mg tablet 10 mg PO DAILY 03/01/22 11/18/22 finasteride 5 mg tablet 5 mg PO DAILY 03/01/22 11/18/22 midodrine 5 mg tablet 1 tab PO TIDAC 03/01/22 11/18/22 rivaroxaban 20 mg tablet (Xarelto) 20 mg PO DAILY@1800 09/25/22 06/14/23 furosemide 20 mg tablet 20 mg PO DAILY 03/28/22 11/18/22 lamotrigine 100 mg tablet 100 mg PO BEDTIME 03/28/22 11/18/22 (Lamictal) lamotrigine 25 mg tablet (Lamictal) 25 mg PO BEDTIME 03/28/22 11/18/22 sertraline 100 mg tablet 100 mg PO DAILY 03/28/22 11/18/22 tramadol 100 mg tablet 100 mg PO Q6H PRN Back Pain 03/28/22 11/18/22 acetaminophen 325 mg tablet 650 mg PO Q6H PRN HEADACHE, fEVER 07/17/22 11/18/22 > 100.4, BODY ACHES baclofen 20 mg tablet 20 mg PO BID 07/17/22 11/18/22 budesonide-formoterol HFA 160 2 puff inhalation BID 07/17/22 11/18/22 mcg-4.5 mcg/actuation aerosol inhaler (Symbicort) buspirone 15 mg tablet 1 tab PO TID 07/17/22 11/18/22 umeclidinium 62.5 mcg/actuation 1 inh inhalation DAILY 07/17/22 11/18/22 blister powder for inhalation (Incruse Ellipta) albuterol sulfate 2.5 mg/3 mL 2.5 mg inhalation Q6H PRN 11/10/22 11/18/22 (0.083 %) solution for nebulization Shortness Of Breath Or Wheezing clonidine HCl 0.1 mg tablet 0.1 mg PO TID 11/10/22 11/18/22 levetiracetam 500 mg tablet 500 mg PO BID 11/10/22 11/18/22 sennosides 8.6 mg-docusate sodium 2 tab PO BID 11/10/22 11/18/22 50 mg tablet (Stimulant Laxative Plus) lorazepam 1 mg tablet 1 mg PO BID PRN Anxiety 11/11/22 11/18/22 diclofenac sodium 1 % topical gel 1 ea topical BID PRN Pain (Scale 11/18/22 11/18/22 Score 1-3) olanzapine 10 mg tablet 10 mg PO BID 11/18/22 11/18/22 polyvinyl alcohol 1.4 % eye drops 1 drp ophthalmic (eye) Q4H PRN Dry 11/18/22 Eyes Previous Rx's Medication Instructions Recorded haloperidol 5 mg tablet 5 mg PO TID #90 tabs 07/23/22 Allergies Allergy/AdvReac Type Severity Reaction Status Date / Time No Known Allergies Allergy Verified 09/12/22 17:33 Review of Systems Review of Systems: CONSTITUTIONAL: Denies weight loss, fever and chills. HEENT: Denies changes in vision and hearing. RESPIRATORY: Denies SOB and cough. CV: Denies palpitations positive CP. GI: Denies abdominal pain, nausea, vomiting and diarrhea. : Denies dysuria and urinary frequency. MSK: Denies myalgia and joint pain. SKIN: Denies rash and pruritus. NEUROLOGICAL: Denies headache and syncope. PSYCHIATRIC: Denies recent changes in mood. Denies anxiety and depression. All other ROS are negative unless in HPI PMFSH Past Medical History Medical History Afib Anxiety disorder CHF (congestive heart failure) Cognitive disorder COPD (chronic obstructive pulmonary disease) CVA (cerebrovascular accident) Mood disorder as late effect of traumatic brain injury Traumatic brain injury Social History Social History Household Members: Unknown / Unable to assess Housing: Other Housing Other:: senior living Unable to assess alcohol history related to: Unable to respond Alcohol intake: former Patient Tobacco Use Status: Former Tobacco user Substance Use Type: Unknown Advance Directives: Yes Advance Directives on File: Yes Advance Directives Date on File: 11/11/21 Healthcare Proxy: Yes (Radha matos daughter) service: No Current occupational status: disabled Physical Exam Vital Signs: Vital Signs: Last Vital Signs Temp 97.9 F 11/18/22 13:11 Pulse 63 11/18/22 17:46 Resp 16 11/18/22 17:46 BP 117/83 11/18/22 17:46 Pulse Ox 95 11/18/22 17:46 O2 Del Method Room Air 11/18/22 17:46 O2 Flow Rate 2 11/18/22 13:11 BMI result Body Mass Index 28.9 GEN: Well developed, no acute distress, alert, oriented HEENT: Normocephalic, atraumatic, normal external ears, nose appears normal, no oropharyngeal edema or exudates Eyes: Normal to appearance Neck: Supple, no lymphadenopathy Respiratory: Talks in complete sentences, no respiratory distress, clear to auscultation bilaterally Cardiovascular: Regular rate and rhythm, no murmurs rubs or gallops Abdomen: Soft, nontender, nondistended, no guarding, no rebound Back: No CVA tenderness Extremities: No clubbing cyanosis or edema Neuro: Left-sided hemiparesis Skin: No rash Course Course Course Narrative: Patient denies any ongoing chest pain. He is medically cleared at this time. Upon attempting to discussed possible discharge with the patient, patient reports that he attempted to kill himself yesterday by tying a bunch of pillowcases together in any himself. He reports, ?I then check and out. ? Patient will need to have a care team evaluation. Will have a sitter placed with patient Reevaluation(s) Reevaluation #1: Patient will be placed in physician observation pending care team evaluation. Time: 14:04 Reevaluation #2: Has been evaluated by her teen, patient also had a medical workup, patient is typically have complained about the senior living and senior living staff, patient has no serious SI/HI plans. Will discharge back to the senior living. Time: 19:01 Medications Administered Discontinued Medications Generic Name Dose Route Start Last Admin Trade Name Maximilianoq PRN Reason Stop Dose Admin Acetaminophen 975 mg 11/18/22 09:30 11/18/22 10:18 Acetaminophen 325 Mg Tablet PO 11/18/22 09:31 975 mg ONCE ONE Administration Medical Decision Making Medical Decision Making [facility] Narrative: 57-year-old male presents with acute sternal chest pain. Examination was consistent with reproducible sternal tenderness to palpation. The rest of his exam revealed focal deficit of left-sided hemiparesis. His cardiopulmonary exam was normal. Given his history, will rule out acute coronary syndrome. Will obtain a chest x-ray to rule out new anatomical issue or infectious etiology. Will obtain EKG to review for acute ischemia. Will provide patient with analgesia and re-evaluate patient Differential Diagnosis Differential Diagnoses: The differential diagnosis associated with the presentation includes (ACS, angina, musculoskeletal pain, sternal pain, atypical pain, GERD, esophagitis, esophageal spasm, pneumonia) Admission/Observation Consideration of admission/observation: Escalation of care including admission/observation considered Lab Data 11/18/22 11:40 11/18/22 11:40 Labs: Lab Results 11/18/22 11/18/22 11/18/22 Range/Units 11:40 11:40 11:41 WBC 11.9 H (4.8-10.8) X10*3/uL RBC 4.19 L (4.60-5.80) X10*6/uL Hgb 12.5 L (14.0-18.0) g/dl Hct 38.2 L (42.0-52.0) % MCV 91.2 (80.0-98.0) fL MCH 29.8 (27.0-33.0) pg MCHC 32.7 (31.0-36.0) g/dl RDW 13.6 (11.0-16.0) % Plt Count 254 (160-400) X10*3/uL MPV 9.9 (9.4-12.4) fL Immature Gran % (Auto) 0.6 H (0.0-0.4) % Neut % (Auto) 69.5 (45-73) % Lymph % (Auto) 25.3 (20-40) % Kimball % (Auto) 4.0 (2-11) % Eos % (Auto) 0.2 (0-4) % Baso % (Auto) 0.4 (0-2) % Lymph # (Auto) 3.0 (1.2-4.9) X10*3/uL Kimball # (Auto) 0.5 (0.1-1.2) X10*3/uL Eos # (Auto) 0.0 (0.0-0.4) X10*3/uL Baso # (Auto) 0.1 (0.0-0.2) X10*3/uL Abs Immat Gran (auto) 0.07 H (0.00-0.03) X10*3/uL Absolute Neuts (auto) 8.2 (2.0-8.3) x10*3/uL Absolute Nucleated RBC 0.000 (0.0-0.012) X10*3/uL Nucleated RBC % (auto) 0.0 (0.0-0.2) /100WBC Sodium 143 (135-145) mmol/L Potassium 3.5 (3.3-5.1) mmol/L Chloride 106 (96-108) mmol/L Carbon Dioxide 30 H (22-29) mmol/L Anion Gap 11 L (12-20) BUN 10 (9-16) mg/dL Creatinine 0.73 (0.5-1.4) mg/dL Estim Creat Clear Calc 145.7 Estimated GFR > 60 Random Glucose 105 (60-115) mg/dL Calcium 9.0 (8.4-10.2) mg/dL Total Bilirubin 0.7 (0.0-1.0) mg/dL AST 13 (5-37) U/L ALT 13 (0-40) U/L Alkaline Phosphatase 117 (39-117) U/L Troponin I High Sens < 2.7 (<3.5-35.0) ng/L Total Protein 6.3 L (6.5-8.0) g/dL Albumin 3.7 (3.5-5.0) g/dL Urine Opiates Screen (Not Detect) Urine Fentanyl Screen (Not Detect) Ur Barbiturates Screen (Not Detect) Ur Phencyclidine Scrn (Not Detect) Ur Amphetamines Screen (Not Detect) U Benzodiazepines Scrn (Not Detect) Urine Cocaine Screen (Not Detect) U Marijuana (THC) Screen (Not Detect) 11/18/22 Range/Units 14:14 WBC (4.8-10.8) X10*3/uL RBC (4.60-5.80) X10*6/uL Hgb (14.0-18.0) g/dl Hct (42.0-52.0) % MCV (80.0-98.0) fL MCH (27.0-33.0) pg MCHC (31.0-36.0) g/dl RDW (11.0-16.0) % Plt Count (160-400) X10*3/uL MPV (9.4-12.4) fL Immature Gran % (Auto) (0.0-0.4) % Neut % (Auto) (45-73) % Lymph % (Auto) (20-40) % Kimball % (Auto) (2-11) % Eos % (Auto) (0-4) % Baso % (Auto) (0-2) % Lymph # (Auto) (1.2-4.9) X10*3/uL Kimball # (Auto) (0.1-1.2) X10*3/uL Eos # (Auto) (0.0-0.4) X10*3/uL Baso # (Auto) (0.0-0.2) X10*3/uL Abs Immat Gran (auto) (0.00-0.03) X10*3/uL Absolute Neuts (auto) (2.0-8.3) x10*3/uL Absolute Nucleated RBC (0.0-0.012) X10*3/uL Nucleated RBC % (auto) (0.0-0.2) /100WBC Sodium (135-145) mmol/L Potassium (3.3-5.1) mmol/L Chloride (96-108) mmol/L Carbon Dioxide (22-29) mmol/L Anion Gap (12-20) BUN (9-16) mg/dL Creatinine (0.5-1.4) mg/dL Estim Creat Clear Calc Estimated GFR Random Glucose (60-115) mg/dL Calcium (8.4-10.2) mg/dL Total Bilirubin (0.0-1.0) mg/dL AST (5-37) U/L ALT (0-40) U/L Alkaline Phosphatase (39-117) U/L Troponin I High Sens (<3.5-35.0) ng/L Total Protein (6.5-8.0) g/dL Albumin (3.5-5.0) g/dL Urine Opiates Screen Not Detected (Not Detect) Urine Fentanyl Screen POSITIVE H (Not Detect) Ur Barbiturates Screen Not Detected (Not Detect) Ur Phencyclidine Scrn Not Detected (Not Detect) Ur Amphetamines Screen Not Detected (Not Detect) U Benzodiazepines Scrn Not Detected (Not Detect) Urine Cocaine Screen Not Detected (Not Detect) U Marijuana (THC) Screen Not Detected (Not Detect) Independent Interpretation I performed an independent interpretation of an: EKG and Plain X-Ray External Record Review External record reviewed: Inpatient record Tests considered The following testing was considered but not selected: CTA chest Prescription Management I considered prescription management with: Pain Medication Discharge Plan Discharge Clinical Impression: Chest pain, Suicide ideation Patient Disposition: [facility] Instructions: Suicide Prevention (ED) Prescriptions: No Action lorazepam [Ativan] 1 mg tablet 1 tab PO BID melatonin 5 mg capsule 2 cap PO BEDTIME mirtazapine 15 mg Tablet 15 mg PO BEDTIME atorvastatin 40 mg Tablet 40 mg PO BEDTIME gabapentin 400 mg Capsule 400 mg TID pantoprazole 40 mg Tablet,Delayed Release (Dr/Ec) 40 mg PO DAILY@1630 metoprolol tartrate 50 mg Tablet 50 mg PO BID Rx Instructions: HOLD IF SBP < 100 OR > 140 HOLD IF HR < 60 OR > 100 cetirizine 10 mg Tablet 10 mg PO DAILY finasteride 5 mg Tablet 5 mg PO DAILY Xarelto 20 mg Tablet 20 mg PO DAILY@1800 Rx Instructions: must administer with evening meal midodrine 5 mg tablet 1 tab PO TIDAC sertraline 100 mg Tablet 100 mg PO DAILY lamotrigine [Lamictal] 25 mg Tablet 25 mg PO BEDTIME Rx Instructions: tdd = 125 mg tramadol 100 mg Tablet 100 mg PO Q6H PRN (Reason: Back Pain) furosemide 20 mg Tablet 20 mg PO DAILY Rx Instructions: HOLD FOR SBP< 100 OR > 140 HOLD IF HR < 60 OR > 100 lamotrigine [Lamictal] 100 mg Tablet 100 mg PO BEDTIME Rx Instructions: TAKE TOGETHER WITH 25 MG TAB TDD= 125 MG buspirone 15 mg tablet 1 tab PO TID budesonide-formoterol [Symbicort] 160-4.5 mcg/actuation Hfa Aerosol Inhaler 2 puff INHALATION BID baclofen 20 mg Tablet 20 mg PO BID Incruse Ellipta 62.5 mcg/actuation Blister With Device 1 inh INHALATION DAILY acetaminophen 325 mg Tablet 650 mg PO Q6H PRN (Reason: HEADACHE, fEVER > 100.4, BODY ACHES ) haloperidol 5 mg Tablet 5 mg PO TID Qty: 90 0RF levetiracetam 500 mg tablet 500 mg PO BID sennosides-docusate sodium [Stimulant Laxative Plus] 8.6-50 mg tablet 2 tab PO BID clonidine HCl 0.1 mg tablet 0.1 mg PO TID albuterol sulfate 2.5 mg /3 mL (0.083 %) solution for nebulization 2.5 mg inhalation Q6H PRN (Reason: Shortness Of Breath Or Wheezing) lorazepam 1 mg Tablet 1 mg PO BID PRN (Reason: Anxiety) polyvinyl alcohol 1.4 % drops 1 drp ophthalmic (eye) Q4H PRN (Reason: Dry Eyes) olanzapine 10 mg tablet 10 mg PO BID diclofenac sodium 1 % gel 1 ea topical BID PRN (Reason: Pain (Scale Score 1-3))
[2022-11-18] MEDS: Acetaminophen 325 MG TABLET 975 MG PO (10:18)
--- NOTE | 2022-11-18 11:41 | PC.NURSE ---
pt refusing lab work at this time, allowed staff to complete EKG
[2022-11-18 11:53] LABS: MANUAL DIFF FLAG NO
[2022-11-18 11:55] LABS: Basophils Absolute Auto 0.1 X10*3/uL (0.0-0.2); Basophils Percent Auto 0.4 % (0-2); Eosinophils Percent Auto 0.2 % (0-4); Hematocrit 38.2 % (42.0-52.0); Hemoglobin 12.5 g/dl (14.0-18.0); Imm Gran Abs Auto 0.07 X10*3/uL (0.00-0.03); Imm Gran Pct Auto 0.6 % (0.0-0.4); Lymphocytes Percent Auto 25.3 % (20-40); Mean Corpuscular HGB Conc 32.7 g/dl (31.0-36.0); Mean Corpuscular Hemoglobin 29.8 pg (27.0-33.0); Mean Corpuscular Volume 91.2 fL (80.0-98.0); Mean Platelet Volume 9.9 fL (9.4-12.4); Monocytes Absolute Auto 0.5 X10*3/uL (0.1-1.2); Neutrophils Absolute Auto 8.2 x10*3/uL (2.0-8.3); Neutrophils Percent Auto 69.5 % (45-73); Platelet Count 254 X10*3/uL (160-400); Red Blood Count 4.19 X10*6/uL (4.60-5.80); Red Cell Distribution Width 13.6 % (11.0-16.0); White Blood Count 11.9 X10*3/uL (4.8-10.8)
[2022-11-18 12:15] LABS: Alanine Aminotransferase 13 U/L (0-40); Albumin Level 3.7 g/dL (3.5-5.0); Alkaline Phosphatase 117 U/L (39-117); Anion Gap 11 (12-20); Aspartate Amino Transferase 13 U/L (5-37); Bilirubin Total 0.7 mg/dL (0.0-1.0); Blood Urea Nitrogen 10 mg/dL (9-16); Carbon Dioxide 30 mmol/L (22-29); Chloride 106 mmol/L (96-108); Creatinine Clr Calc Pharmacy 145.7; Estimated Glomerular Filt Rate > 60; Glucose Random 105 mg/dL (60-115); Potassium 3.5 mmol/L (3.3-5.1); Sodium 143 mmol/L (135-145); Total Protein 6.3 g/dL (6.5-8.0)
[2022-11-18 12:18] LABS: Troponin-I High Sensitivity < 2.7 ng/L (<3.5-35.0)
[2022-11-18 14:34] LABS: Amphetamine Screen Urine Not Detected (Not Detect); Barbiturates, Urine Not Detected (Not Detect); Benzodiazepines Screen Urine Not Detected (Not Detect); Cannabinoid Screen Urine Not Detected (Not Detect); Cocaine Screen Urine Not Detected (Not Detect); Fentanyl, urine POSITIVE (Not Detect); Opiate Screen Urine Not Detected (Not Detect); Phencyclidine Screen Urine Not Detected (Not Detect)
== END 2022-11-18 19:57 | disposition skilled nursing facility (03) ==
PROVIDERS: Emergency Provider Emergency Medicine; PCP Family Medicine
DX: R45.851 Suicidal ideations (principal); R07.9 Chest pain, unspecified; J44.9 Chronic obstructive pulmonary disease, unspecified; I69.954 Hemiplegia and hemiparesis following unspecified cerebrovascular disease affecting left non-dominant side; R09.02 Hypoxemia; Z99.81 Dependence on supplemental oxygen; I48.21 Permanent atrial fibrillation; Z79.01 Long term (current) use of anticoagulants; I50.32 Chronic diastolic (congestive) heart failure; Z87.820 Personal history of traumatic brain injury; Z79.899 Other long term (current) drug therapy
CPT/HCPCS: 36415; 71045; 80053; 80307; 84484; 85025; 93005; 99284; S9485

== ENCOUNTER 2022-11-21 15:14 | Emergency (ER) | payer OTHER, SELFPAY ==
--- NOTE | ~2022-11-21 | CT_ITS ---
EXAMINATION: CT LEFT ANKLE WITHOUT CONTRAST CLINICAL INFORMATION: Evaluate lateral malleolar fracture. COMPARISON: Radiograph of the left ankle earlier today. TECHNIQUE: Contiguous axial imaging was performed of the left ankle without intravenous administration of contrast. This CT examination was performed using dose optimization techniques as appropriate, variously including the following: *Automated exposure control *Adjustment of mA and/or kV according to patient size (this includes techniques or standardized protocols for targeted exams where dose is matched to indication/reason for exam; i.e. extremities or head) *Use of iterative reconstruction technique DLP: 160 mGy-cm FINDINGS: No acute fractures or subluxation. Mild multifocal degenerative osteoarthritis with joint space narrowing and subcortical sclerosis. Slightly decreased bone mineralization. No evidence of erosions or chondrocalcinosis. No destructive appearing osseous lesions. No organized soft tissue collection or significant hematoma. No unexpected hyperdense foreign body. CT/CT ankle LT wo IV con IMPRESSION: No acute fractures or malalignment. Mild multifocal degenerative osteoarthritis.
--- NOTE | ~2022-11-21 | XR_ITS ---
EXAMINATION: XR CHEST CLINICAL INFORMATION: Cardiac heart failure. COMPARISON: Chest radiograph 11/18/2022. TECHNIQUE: Frontal view of the chest was obtained. FINDINGS: Stable prominence of the cardiomediastinal silhouette. Unchanged central vasculature engorgement and diffuse reticulation. Grossly unchanged bibasilar airspace opacities. Stable trace amount of bilateral pleural fluid. No pneumothorax. No acute osseous abnormalities. XR/XR chest 1V IMPRESSION: Examination is not significantly changed compared to 11/18/2022 with findings most suggestive of pulmonary edema with bibasilar atelectasis. An atypical/viral infection is difficult to exclude in the appropriate clinical context.
--- NOTE | ~2022-11-21 | XR_ITS ---
EXAMINATION: XR ANKLE, LEFT CLINICAL INFORMATION: Pain, fall. COMPARISON: No similar priors. TECHNIQUE: Two views of the left ankle. FINDINGS: Equivocal nondisplaced deformity of the medial malleolus. Diffuse nonspecific soft tissue thickening, slightly more apparent adjacent to the medial malleolus. No unexpected radiopaque foreign bodies. XR/XR ankle LT 2V IMPRESSION: 1. Equivocal nondisplaced deformity of the medial malleolus. Correlate for point tenderness and if indicated consider further evaluation with a CT or MR. 2. Nonspecific soft tissue thickening, more apparent adjacent to the medial malleolus.
[2022-11-21 15:22] VITALS: BP 105/73; BP 126/70; PULSE 70; PULSE 79; RESP 18; O2SAT 94; O2SAT 95; BMI 29.9
--- NOTE | 2022-11-21 16:30 | ECG_ITS ---
Test Reason : fall Blood Pressure : / mmHG Vent. Rate : 080 BPM Atrial Rate : 000 BPM P-R Int : 000 ms QRS Dur : 076 ms QT Int : 368 ms P-R-T Axes : 000 -04 -05 degrees QTc Int : 424 ms Atrial fibrillation Nonspecific T wave abnormality Abnormal ECG When compared with ECG of 18-NOV-2022 11:18, Nonspecific T wave abnormality, worse in Inferior leads Nonspecific T wave abnormality, worse in Anterolateral leads Referred By: Sue Mahoney Electronically Signed By:JAGDISH LIU MD
--- NOTE | 2022-11-21 16:37 | ED_ITS ---
HPI - General Adult General Chief complaint: Fall Stated complaint: left ankle pain Time Seen by Provider: 11/21/22 16:03 Source: patient Mode of arrival: EMS Limitations: other (Poor historian) History of Present Illness HPI narrative: Patient comes to the emergency room via ambulance [facility] complaining of left ankle pain. Patient states that he slipped out of bed, but was able to catch himself with his ankle. Denies head injury, denies any other pain. Related Data Home Medications Medication Instructions Recorded Confirmed atorvastatin 40 mg tablet 40 mg PO BEDTIME 02/28/22 11/18/22 gabapentin 400 mg capsule 400 mg TID 02/28/22 11/18/22 lorazepam 1 mg tablet (Ativan) 1 tab PO BID 02/28/22 11/18/22 melatonin 5 mg capsule 2 cap PO BEDTIME 02/28/22 11/18/22 metoprolol tartrate 50 mg tablet 50 mg PO BID 02/28/22 11/18/22 mirtazapine 15 mg tablet 15 mg PO BEDTIME 02/28/22 11/18/22 pantoprazole 40 mg tablet,delayed 40 mg PO DAILY@1630 02/28/22 11/18/22 release cetirizine 10 mg tablet 10 mg PO DAILY 03/01/22 11/18/22 finasteride 5 mg tablet 5 mg PO DAILY 03/01/22 11/18/22 midodrine 5 mg tablet 1 tab PO TIDAC 03/01/22 11/18/22 rivaroxaban 20 mg tablet (Xarelto) 20 mg PO DAILY@1800 03/01/22 11/18/22 furosemide 20 mg tablet 20 mg PO DAILY 03/28/22 11/18/22 lamotrigine 100 mg tablet 100 mg PO BEDTIME 03/28/22 11/18/22 (Lamictal) lamotrigine 25 mg tablet (Lamictal) 25 mg PO BEDTIME 03/28/22 11/18/22 sertraline 100 mg tablet 100 mg PO DAILY 03/28/22 11/18/22 tramadol 100 mg tablet 100 mg PO Q6H PRN Back Pain 03/28/22 11/18/22 acetaminophen 325 mg tablet 650 mg PO Q6H PRN HEADACHE, fEVER 07/17/22 11/18/22 > 100.4, BODY ACHES baclofen 20 mg tablet 20 mg PO BID 07/17/22 11/18/22 budesonide-formoterol HFA 160 2 puff inhalation BID 07/17/22 11/18/22 mcg-4.5 mcg/actuation aerosol inhaler (Symbicort) buspirone 15 mg tablet 1 tab PO TID 07/17/22 11/18/22 umeclidinium 62.5 mcg/actuation 1 inh inhalation DAILY 07/17/22 11/18/22 blister powder for inhalation (Incruse Ellipta) albuterol sulfate 2.5 mg/3 mL 2.5 mg inhalation Q6H PRN 11/10/22 11/18/22 (0.083 %) solution for nebulization Shortness Of Breath Or Wheezing clonidine HCl 0.1 mg tablet 0.1 mg PO TID 11/10/22 11/18/22 levetiracetam 500 mg tablet 500 mg PO BID 11/10/22 11/18/22 sennosides 8.6 mg-docusate sodium 2 tab PO BID 11/10/22 11/18/22 50 mg tablet (Stimulant Laxative Plus) lorazepam 1 mg tablet 1 mg PO BID PRN Anxiety 11/11/22 11/18/22 diclofenac sodium 1 % topical gel 1 ea topical BID PRN Pain (Scale 11/18/22 11/18/22 Score 1-3) olanzapine 10 mg tablet 10 mg PO BID 11/18/22 11/18/22 polyvinyl alcohol 1.4 % eye drops 1 drp ophthalmic (eye) Q4H PRN Dry 11/18/22 11/18/22 Eyes Previous Rx's Medication Instructions Recorded haloperidol 5 mg tablet 5 mg PO TID #90 tabs 07/23/22 Allergies Allergy/AdvReac Type Severity Reaction Status Date / Time No Known Allergies Allergy Verified 09/12/22 17:33 Review of Systems Review of Systems: Constitutional : No Weight loss, No Fever, No Chills, No Night Sweats, No Fatigue, No Malaise ENT/Mouth : No Hearing loss, No Ear Pain, No Nasal Congestion, No Sinus Pain, No Hoarseness, No sore throat, No Rhinorrhea, No Swallowing Difficulty Eyes: No Eye Pain, No Swelling, No Redness, No Foreign Body, No Discharge, No Vision Changes Cardiovascular : No Chest Pain, complaining of chronic dyspnea, on 3 L at home. Respiratory : No Cough, No Sputum, No Wheezing, No Smoke Exposure, No Dyspnea Gastrointestinal : No Nausea, No Vomiting, No Diarrhea, No Constipation, No abdominal Pain, No Hematochezia, No Melena Genitourinary : no irregular bleeding, No Dysuria, No Urinary Frequency, No Hematuria, No Urinary Incontinence, No Urgency, No Flank Pain, No Urinary Flow Changes, No Hesitancy Musculoskeletal : Complaining of left ankle pain, No Myalgias, No Joint Swelling Skin : No Skin Lesions, No rash Neuro : No Weakness, No Numbness, No Paresthesias, No Loss of Consciousness, No Dizziness, No Headache Psych : No Anxiety/Panic, No Depression, No SI/HI/AH/VH, No Social Issues, Heme/Lymph: No Bruising, No Bleeding,No Lymphadenopathy Endocrine : No Polyuria, No Polydipsia, No Temperature Intolerance PMFSH Past Medical History Medical History Afib Anxiety disorder CHF (congestive heart failure) Cognitive disorder COPD (chronic obstructive pulmonary disease) CVA (cerebrovascular accident) Mood disorder as late effect of traumatic brain injury Traumatic brain injury Social History Social History Household Members: Unknown / Unable to assess Housing: Other Housing Other:: [facility] Unable to assess alcohol history related to: Unable to respond Alcohol intake: former Patient Tobacco Use Status: Former Tobacco user Substance Use Type: Unknown Advance Directives: Yes Advance Directives on File: Yes Advance Directives Date on File: 11/11/21 service: No Current occupational status: disabled Physical Exam ED Vital Signs: Vital Signs - 24 hr 11/21/22 15:22 11/21/22 18:35 Pulse Rate 79 95 Respiratory Rate 18 20 Blood Pressure 105/73 114/84 Pulse Oximetry 94 95 Oxygen Delivery Method Nasal Cannula Nasal Cannula Oxygen Flow Rate 3 BMI result Body Mass Index 29.9 Const Other: Appearance: Alert. Oriented X3. No acute distress. Eyes: Pupils equal, round and reactive to light. ENT: Pharynx normal. Neck: Normal inspection. Neck supple. No lymph nodes noted. No crepitus CVS: Normal heart rate and rhythm. Pulses normal. Normal S1 and S2 Respiratory: No respiratory distress. Bilateral basilar crackles No Wheezing. No rales Abdomen: Soft and nontender. No rigidity. No distention. Skin: Skin warm and dry. Normal skin color. Normal skin turgor. Extremities: No lower extremity edema. No Lacerations. No Rash. Ankle looks within normal limits, no swelling, no ecchymosis, no pain with flexion extension of the ankle. Neuro: Oriented X 3. No motor deficit. No sensory deficit. Moving all extremities. No slurred speech. CN 2 through 12 grossly intact Psych: calm, cooperative, normal affect Course Course Course Narrative: -patient visits the ED frequently with different complaints, patient is not a good historian. X-ray of the foot pending. On physical exam patient sounded a bit crackly, I ordered a chest x-ray and labs. Patient does have history of CHF Medical Decision Making Medical Decision Making MDM Narrative: X-ray of the foot is equivocal, there may be a left lateral malleolus fracture. Patient is poor historian, patient states that he has pain everywhere. -CT scan of the ankle shows that the malleolus is not fracture. Patient ready for discharge -I discussed the CT scan findings with the patient. Patient states that his ankle does not hurt anymore. Then he proceeded to say that people at his facility are trying to poison him and kill him him. I know the patient well since he visits us in the emergency room frequently. Almost every time that he comes here to the emergency room, he has a new negative allegation against the nursing facility. So far, neglect or harm towards the patient is not suspected Lab Data [facility] Lab Attestation statement: I reviewed the patient's lab results. 11/21/22 17:01 11/21/22 17:01 Labs: Lab Results 11/21/22 11/21/22 11/21/22 Range/Units 17:01 17:01 17:01 WBC 8.2 (4.8-10.8) X10*3/uL RBC 4.30 L (4.60-5.80) X10*6/uL Hgb 12.8 L (14.0-18.0) g/dl Hct 39.9 L (42.0-52.0) % MCV 92.8 (80.0-98.0) fL MCH 29.8 (27.0-33.0) pg MCHC 32.1 (31.0-36.0) g/dl RDW 13.9 (11.0-16.0) % Plt Count 239 (160-400) X10*3/uL MPV 9.9 (9.4-12.4) fL Immature Gran % (Auto) 0.5 H (0.0-0.4) % Neut % (Auto) 53.2 (45-73) % Lymph % (Auto) 39.5 (20-40) % Swain % (Auto) 5.1 (2-11) % Eos % (Auto) 1.0 (0-4) % Baso % (Auto) 0.7 (0-2) % Lymph # (Auto) 3.2 (1.2-4.9) X10*3/uL Swain # (Auto) 0.4 (0.1-1.2) X10*3/uL Eos # (Auto) 0.1 (0.0-0.4) X10*3/uL Baso # (Auto) 0.1 (0.0-0.2) X10*3/uL Abs Immat Gran (auto) 0.04 H (0.00-0.03) X10*3/uL Absolute Neuts (auto) 4.4 (2.0-8.3) x10*3/uL Absolute Nucleated RBC 0.000 (0.0-0.012) X10*3/uL Nucleated RBC % (auto) 0.0 (0.0-0.2) /100WBC Sodium 145 (135-145) mmol/L Potassium 3.4 (3.3-5.1) mmol/L Chloride 107 (96-108) mmol/L Carbon Dioxide 27 (22-29) mmol/L Anion Gap 14 (12-20) BUN 13 (9-16) mg/dL Creatinine 0.77 (0.5-1.4) mg/dL Estim Creat Clear Calc 136.5 Estimated GFR > 60 Random Glucose 97 (60-115) mg/dL Calcium 9.3 (8.4-10.2) mg/dL B-Natriuretic Peptide 31 (<100) pg/mL Radiology Impression Discussion of test interpretation with radiology: I have reviewed the radiologist's reading. Radiologist Impression: FINDINGS: No acute fractures or subluxation. Mild multifocal degenerative osteoarthritis with joint space narrowing and subcortical sclerosis. Slightly decreased bone mineralization. No evidence of erosions or chondrocalcinosis. No destructive appearing osseous lesions. No organized soft tissue collection or significant hematoma. No unexpected hyperdense foreign body. CT/CT ankle LT wo IV con IMPRESSION: No acute fractures or malalignment. Mild multifocal degenerative osteoarthritis. Discharge Plan Discharge Clinical Impression: Ankle pain Patient Disposition: Home, Self-Care Instructions: Arthralgia (ED) Additional Instructions: Please follow-up with your primary care physician tomorrow. If you have any worsening or new symptoms, please return to the emergency room or call 911 Prescriptions: No Action lorazepam [Ativan] 1 mg tablet 1 tab PO BID melatonin 5 mg capsule 2 cap PO BEDTIME mirtazapine 15 mg Tablet 15 mg PO BEDTIME atorvastatin 40 mg Tablet 40 mg PO BEDTIME gabapentin 400 mg Capsule 400 mg TID pantoprazole 40 mg Tablet,Delayed Release (Dr/Ec) 40 mg PO DAILY@1630 metoprolol tartrate 50 mg Tablet 50 mg PO BID Rx Instructions: HOLD IF SBP < 100 OR > 140 HOLD IF HR < 60 OR > 100 cetirizine 10 mg Tablet 10 mg PO DAILY finasteride 5 mg Tablet 5 mg PO DAILY Xarelto 20 mg Tablet 20 mg PO DAILY@1800 Rx Instructions: must administer with evening meal midodrine 5 mg tablet 1 tab PO TIDAC sertraline 100 mg Tablet 100 mg PO DAILY lamotrigine [Lamictal] 25 mg Tablet 25 mg PO BEDTIME Rx Instructions: tdd = 125 mg tramadol 100 mg Tablet 100 mg PO Q6H PRN (Reason: Back Pain) furosemide 20 mg Tablet 20 mg PO DAILY Rx Instructions: HOLD FOR SBP< 100 OR > 140 HOLD IF HR < 60 OR > 100 lamotrigine [Lamictal] 100 mg Tablet 100 mg PO BEDTIME Rx Instructions: TAKE TOGETHER WITH 25 MG TAB TDD= 125 MG buspirone 15 mg tablet 1 tab PO TID budesonide-formoterol [Symbicort] 160-4.5 mcg/actuation Hfa Aerosol Inhaler 2 puff INHALATION BID baclofen 20 mg Tablet 20 mg PO BID Incruse Ellipta 62.5 mcg/actuation Blister With Device 1 inh INHALATION DAILY acetaminophen 325 mg Tablet 650 mg PO Q6H PRN (Reason: HEADACHE, fEVER > 100.4, BODY ACHES ) haloperidol 5 mg Tablet 5 mg PO TID Qty: 90 0RF levetiracetam 500 mg tablet 500 mg PO BID sennosides-docusate sodium [Stimulant Laxative Plus] 8.6-50 mg tablet 2 tab PO BID clonidine HCl 0.1 mg tablet 0.1 mg PO TID albuterol sulfate 2.5 mg /3 mL (0.083 %) solution for nebulization 2.5 mg inhalation Q6H PRN (Reason: Shortness Of Breath Or Wheezing) lorazepam 1 mg Tablet 1 mg PO BID PRN (Reason: Anxiety) polyvinyl alcohol 1.4 % drops 1 drp ophthalmic (eye) Q4H PRN (Reason: Dry Eyes) olanzapine 10 mg tablet 10 mg PO BID diclofenac sodium 1 % gel 1 ea topical BID PRN (Reason: Pain (Scale Score 1-3))
[2022-11-21 17:05] LABS: MANUAL DIFF FLAG NO
[2022-11-21 17:08] LABS: Basophils Absolute Auto 0.1 X10*3/uL (0.0-0.2); Basophils Percent Auto 0.7 % (0-2); Eosinophils Absolute Auto 0.1 X10*3/uL (0.0-0.4); Hematocrit 39.9 % (42.0-52.0); Hemoglobin 12.8 g/dl (14.0-18.0); Imm Gran Abs Auto 0.04 X10*3/uL (0.00-0.03); Imm Gran Pct Auto 0.5 % (0.0-0.4); Lymphocytes Absolute Auto 3.2 X10*3/uL (1.2-4.9); Lymphocytes Percent Auto 39.5 % (20-40); Mean Corpuscular HGB Conc 32.1 g/dl (31.0-36.0); Mean Corpuscular Hemoglobin 29.8 pg (27.0-33.0); Mean Corpuscular Volume 92.8 fL (80.0-98.0); Mean Platelet Volume 9.9 fL (9.4-12.4); Monocytes Absolute Auto 0.4 X10*3/uL (0.1-1.2); Monocytes Percent Auto 5.1 % (2-11); Neutrophils Absolute Auto 4.4 x10*3/uL (2.0-8.3); Neutrophils Percent Auto 53.2 % (45-73); Platelet Count 239 X10*3/uL (160-400); Red Cell Distribution Width 13.9 % (11.0-16.0); White Blood Count 8.2 X10*3/uL (4.8-10.8)
[2022-11-21 17:18] LABS: Anion Gap 14 (12-20); Blood Urea Nitrogen 13 mg/dL (9-16); Calcium 9.3 mg/dL (8.4-10.2); Carbon Dioxide 27 mmol/L (22-29); Chloride 107 mmol/L (96-108); Creatinine Clr Calc Pharmacy 136.5; Estimated Glomerular Filt Rate > 60; Glucose Random 97 mg/dL (60-115); Potassium 3.4 mmol/L (3.3-5.1); Sodium 145 mmol/L (135-145)
--- NOTE | 2022-11-21 17:46 | PC.NURSE ---
pt ao. after reporting left ankle pain, pt is now saying that they feel better and want to leave.
[2022-11-21 18:35] VITALS: BP 114/84; PULSE 95; RESP 20; O2SAT 95
[2022-11-21 20:15] LABS: B Type Natriuretic Peptide 31 pg/mL (<100)
--- NOTE | 2022-11-21 21:13 | PC.NURSE ---
pt awaiting ride back to [facility]. pt continues to call out. rn to bedside. virgen care provided for incontinence of stool. pt boosted up in bed and missing reconciliation accountant leads replaced
--- NOTE | 2022-11-21 21:25 | PC.NURSE ---
report given to [facility] operating room manager. [phone]. report given to ems pt preparing for transport
== END 2022-11-21 21:28 | disposition home or self-care (01) ==
PROVIDERS: Emergency Provider Emergency Medicine
DX: M25.572 Pain in left ankle and joints of left foot (principal); R06.00 Dyspnea, unspecified; Z79.02 Long term (current) use of antithrombotics/antiplatelets; Z79.899 Other long term (current) drug therapy; Z79.01 Long term (current) use of anticoagulants; I48.91 Unspecified atrial fibrillation; Z86.73 Personal history of transient ischemic attack (TIA), and cerebral infarction without residual deficits
CPT/HCPCS: 36415; 71045; 73600; 73700; 80048; 83880; 85025; 93005; 99284

== ENCOUNTER 2022-11-23 21:18 | Emergency (ER) | payer OTHER, SELFPAY ==
[2022-11-23 21:28] VITALS: BP 156/70; BP 160/79; PULSE 87; PULSE 90; RESP 18; TEMP 37; O2SAT 96; O2SAT 98; BMI 36.9
--- NOTE | 2022-11-23 21:58 | ED.FALL ---
HPI - Fall General Chief Complaint: Fall Stated Complaint: controlled fall from bed @ [facility],home o2@3lpm Time Seen by Provider: 11/23/22 21:57 Source: patient and EMS Mode of arrival: EMS Limitations: no limitations Related Data Home Medications Medication Instructions Recorded Confirmed atorvastatin 40 mg tablet 40 mg PO BEDTIME 02/28/22 11/18/22 gabapentin 400 mg capsule 400 mg TID 02/28/22 11/18/22 lorazepam 1 mg tablet (Ativan) 1 tab PO BID 02/28/22 11/18/22 melatonin 5 mg capsule 2 cap PO BEDTIME 02/28/22 11/18/22 metoprolol tartrate 50 mg tablet 50 mg PO BID 02/28/22 11/18/22 mirtazapine 15 mg tablet 15 mg PO BEDTIME 02/28/22 11/18/22 pantoprazole 40 mg tablet,delayed 40 mg PO DAILY@1630 02/28/22 11/18/22 release cetirizine 10 mg tablet 10 mg PO DAILY 03/01/22 11/18/22 finasteride 5 mg tablet 5 mg PO DAILY 03/01/22 11/18/22 midodrine 5 mg tablet 1 tab PO TIDAC 03/01/22 11/18/22 rivaroxaban 20 mg tablet (Xarelto) 20 mg PO DAILY@1800 03/01/22 11/18/22 furosemide 20 mg tablet 20 mg PO DAILY 03/28/22 11/18/22 lamotrigine 100 mg tablet 100 mg PO BEDTIME 03/28/22 11/18/22 (Lamictal) lamotrigine 25 mg tablet (Lamictal) 25 mg PO BEDTIME 03/28/22 11/18/22 sertraline 100 mg tablet 100 mg PO DAILY 03/28/22 11/18/22 tramadol 100 mg tablet 100 mg PO Q6H PRN Back Pain 03/28/22 11/18/22 acetaminophen 325 mg tablet 650 mg PO Q6H PRN HEADACHE, fEVER 07/17/22 11/18/22 > 100.4, BODY ACHES baclofen 20 mg tablet 20 mg PO BID 07/17/22 11/18/22 budesonide-formoterol HFA 160 2 puff inhalation BID 07/17/22 11/18/22 mcg-4.5 mcg/actuation aerosol inhaler (Symbicort) buspirone 15 mg tablet 1 tab PO TID 07/17/22 11/18/22 umeclidinium 62.5 mcg/actuation 1 inh inhalation DAILY 07/17/22 11/18/22 blister powder for inhalation (Incruse Ellipta) albuterol sulfate 2.5 mg/3 mL 2.5 mg inhalation Q6H PRN 11/10/22 11/18/22 (0.083 %) solution for nebulization Shortness Of Breath Or Wheezing clonidine HCl 0.1 mg tablet 0.1 mg PO TID 11/10/22 11/18/22 levetiracetam 500 mg tablet 500 mg PO BID 11/10/22 11/18/22 sennosides 8.6 mg-docusate sodium 2 tab PO BID 11/10/22 11/18/22 50 mg tablet (Stimulant Laxative Plus) lorazepam 1 mg tablet 1 mg PO BID PRN Anxiety 11/11/22 11/18/22 diclofenac sodium 1 % topical gel 1 ea topical BID PRN Pain (Scale 11/18/22 11/18/22 Score 1-3) olanzapine 10 mg tablet 10 mg PO BID 11/18/22 11/18/22 polyvinyl alcohol 1.4 % eye drops 1 drp ophthalmic (eye) Q4H PRN Dry 11/18/22 11/18/22 Eyes Previous Rx's Medication Instructions Recorded haloperidol 5 mg tablet 5 mg PO TID #90 tabs 07/23/22 Allergies Allergy/AdvReac Type Severity Reaction Status Date / Time No Known Allergies Allergy Verified 09/12/22 17:33 [facility] Past Medical History Medical History Afib Anxiety disorder CHF (congestive heart failure) Cognitive disorder COPD (chronic obstructive pulmonary disease) CVA (cerebrovascular accident) Mood disorder as late effect of traumatic brain injury Traumatic brain injury Social History Social History Household Members: Unknown / Unable to assess Housing: Other Housing Other:: longterm Unable to assess alcohol history related to: Unable to respond Alcohol intake: former Patient Tobacco Use Status: Former Tobacco user Smoked in Last 30 Days: No Substance Use Type: Unknown Advance Directives: Yes Advance Directives on File: Yes Advance Directives Date on File: 11/11/21 service: No Current occupational status: disabled Physical Exam Vital Signs: Vital Signs: Last Vital Signs Temp 99.2 F 11/23/22 22:25 Pulse 64 11/23/22 22:25 Resp 15 11/23/22 22:25 BP 142/70 H 11/23/22 22:25 Pulse Ox 95 11/23/22 22:25 O2 Del Method Nasal Cannula 11/23/22 22:25 O2 Flow Rate 3 11/23/22 22:25 BMI result Body Mass Index 36.9 Discharge Plan Discharge Clinical Impression: Fall Qualifiers: Encounter type: initial encounter Qualified Code(s): W19.XXXA - Unspecified fall, initial encounter Patient Disposition: Xfer Other Transfer Details: back to longterm, No signs of injury no imaging required, fall preventions as advised Instructions: Fall Prevention (ED) Prescriptions: No Action lorazepam [Ativan] 1 mg tablet 1 tab PO BID melatonin 5 mg capsule 2 cap PO BEDTIME mirtazapine 15 mg Tablet 15 mg PO BEDTIME atorvastatin 40 mg Tablet 40 mg PO BEDTIME gabapentin 400 mg Capsule 400 mg TID pantoprazole 40 mg Tablet,Delayed Release (Dr/Ec) 40 mg PO DAILY@1630 metoprolol tartrate 50 mg Tablet 50 mg PO BID Rx Instructions: HOLD IF SBP < 100 OR > 140 HOLD IF HR < 60 OR > 100 cetirizine 10 mg Tablet 10 mg PO DAILY finasteride 5 mg Tablet 5 mg PO DAILY Xarelto 20 mg Tablet 20 mg PO DAILY@1800 Rx Instructions: must administer with evening meal midodrine 5 mg tablet 1 tab PO TIDAC sertraline 100 mg Tablet 100 mg PO DAILY lamotrigine [Lamictal] 25 mg Tablet 25 mg PO BEDTIME Rx Instructions: tdd = 125 mg tramadol 100 mg Tablet 100 mg PO Q6H PRN (Reason: Back Pain) furosemide 20 mg Tablet 20 mg PO DAILY Rx Instructions: HOLD FOR SBP< 100 OR > 140 HOLD IF HR < 60 OR > 100 lamotrigine [Lamictal] 100 mg Tablet 100 mg PO BEDTIME Rx Instructions: TAKE TOGETHER WITH 25 MG TAB TDD= 125 MG buspirone 15 mg tablet 1 tab PO TID budesonide-formoterol [Symbicort] 160-4.5 mcg/actuation Hfa Aerosol Inhaler 2 puff INHALATION BID baclofen 20 mg Tablet 20 mg PO BID Incruse Ellipta 62.5 mcg/actuation Blister With Device 1 inh INHALATION DAILY acetaminophen 325 mg Tablet 650 mg PO Q6H PRN (Reason: HEADACHE, fEVER > 100.4, BODY ACHES ) haloperidol 5 mg Tablet 5 mg PO TID Qty: 90 0RF levetiracetam 500 mg tablet 500 mg PO BID sennosides-docusate sodium [Stimulant Laxative Plus] 8.6-50 mg tablet 2 tab PO BID clonidine HCl 0.1 mg tablet 0.1 mg PO TID albuterol sulfate 2.5 mg /3 mL (0.083 %) solution for nebulization 2.5 mg inhalation Q6H PRN (Reason: Shortness Of Breath Or Wheezing) lorazepam 1 mg Tablet 1 mg PO BID PRN (Reason: Anxiety) polyvinyl alcohol 1.4 % drops 1 drp ophthalmic (eye) Q4H PRN (Reason: Dry Eyes) olanzapine 10 mg tablet 10 mg PO BID diclofenac sodium 1 % gel 1 ea topical BID PRN (Reason: Pain (Scale Score 1-3))
[2022-11-23 22:25] VITALS: BP 142/70; PULSE 64; RESP 15; TEMP 37.3; O2SAT 95
== END 2022-11-23 22:30 | disposition other institution (70) ==
PROVIDERS: Emergency Provider Internal Medicine
DX: S09.90XA Unspecified injury of head, initial encounter (principal); W06.XXXA Fall from bed, initial encounter; Y93.9 Activity, unspecified; Y92.9 Unspecified place or not applicable; Y99.9 Unspecified external cause status
CPT/HCPCS: 99282; 99284

== ENCOUNTER 2022-11-24 05:10 | Emergency (ER) | payer OTHER, SELFPAY ==
--- NOTE | ~2022-11-24 | CT_ITS ---
EXAMINATION: CT HEAD WITHOUT CONTRAST CLINICAL INFORMATION: Status post fall COMPARISON: CT brain 11/17/2022 TECHNIQUE: Contiguous axial imaging was performed from the skull base to vertex without intravenous administration of contrast. This CT examination was performed using dose optimization techniques as appropriate, variously including the following: *Automated exposure control *Adjustment of mA and/or kV according to patient size (this includes techniques or standardized protocols for targeted exams where dose is matched to indication/reason for exam; i.e. extremities or head) *Use of iterative reconstruction technique DLP: 826 mGy-cm FINDINGS: There is a right lbkervp-gyfgblyl-xsjrbxqb lobe encephalomalacia from postop changes. There is there is linear right frontoparietal subdural density question flap versus residual subdural hematoma. No change from the last exam 11/17/2022. Asymmetric enlargement of right lateral ventricle from right cerebral encephalomalacia is noted. The left lateral ventricle is unremarkable. There is a right hemispheric craniotomy. The paranasal sinuses and mastoid air cells are well-aerated. CT/CT head/brain wo IV con IMPRESSION: 1. No acute intracranial process seen. 2. Right iqeonpz-frnqmoiy-tgvxsthp lobe encephalomalacia from postop changes. There is a right frontoparietal subdural flap versus subdural hematoma. No change from last exam 11/17/2022. 3. There is a right hemispheric craniotomy with right cfurboh-klamzzph-vfwbbqju lobe encephalomalacia. There is asymmetric enlargement of right lateral ventricle from right cerebral encephalomalacia.
--- NOTE | 2022-11-24 05:21 | ED_ITS ---
HPI - Fall General Chief Complaint: Fall Stated Complaint: fall from bed Time Seen by Provider: 11/24/22 05:21 Source: patient, EMS and RN notes reviewed Mode of arrival: EMS Limitations: no limitations History of Present Illness HPI Narrative: Patient with history of left hemiparesis frequent falls was just seen here and sent back to correction after a minor fall comes here as again patient decided to slide himself down from the bed and staff had to call EMS or evaluate new significant injuries patient is on Xarelto Related Data Home Medications Medication Instructions Recorded Confirmed atorvastatin 40 mg tablet 40 mg PO BEDTIME 02/28/22 11/18/22 gabapentin 400 mg capsule 400 mg TID 02/28/22 11/18/22 lorazepam 1 mg tablet (Ativan) 1 tab PO BID 02/28/22 11/18/22 melatonin 5 mg capsule 2 cap PO BEDTIME 02/28/22 11/18/22 metoprolol tartrate 50 mg tablet 50 mg PO BID 02/28/22 11/18/22 mirtazapine 15 mg tablet 15 mg PO BEDTIME 02/28/22 11/18/22 pantoprazole 40 mg tablet,delayed 40 mg PO DAILY@1630 02/28/22 11/18/22 release cetirizine 10 mg tablet 10 mg PO DAILY 03/01/22 11/18/22 finasteride 5 mg tablet 5 mg PO DAILY 03/01/22 11/18/22 midodrine 5 mg tablet 1 tab PO TIDAC 03/01/22 11/18/22 rivaroxaban 20 mg tablet (Xarelto) 20 mg PO DAILY@1800 03/01/22 11/18/22 furosemide 20 mg tablet 20 mg PO DAILY 03/28/22 11/18/22 lamotrigine 100 mg tablet 100 mg PO BEDTIME 03/28/22 11/18/22 (Lamictal) lamotrigine 25 mg tablet (Lamictal) 25 mg PO BEDTIME 03/28/22 11/18/22 sertraline 100 mg tablet 100 mg PO DAILY 03/28/22 11/18/22 tramadol 100 mg tablet 100 mg PO Q6H PRN Back Pain 03/28/22 11/18/22 acetaminophen 325 mg tablet 650 mg PO Q6H PRN HEADACHE, fEVER 07/17/22 11/18/22 > 100.4, BODY ACHES baclofen 20 mg tablet 20 mg PO BID 07/17/22 11/18/22 budesonide-formoterol HFA 160 2 puff inhalation BID 07/17/22 11/18/22 mcg-4.5 mcg/actuation aerosol inhaler (Symbicort) buspirone 15 mg tablet 1 tab PO TID 07/17/22 11/18/22 umeclidinium 62.5 mcg/actuation 1 inh inhalation DAILY 07/17/22 11/18/22 blister powder for inhalation (Incruse Ellipta) albuterol sulfate 2.5 mg/3 mL 2.5 mg inhalation Q6H PRN 11/10/22 11/18/22 (0.083 %) solution for nebulization Shortness Of Breath Or Wheezing clonidine HCl 0.1 mg tablet 0.1 mg PO TID 11/10/22 11/18/22 levetiracetam 500 mg tablet 500 mg PO BID 11/10/22 11/18/22 sennosides 8.6 mg-docusate sodium 2 tab PO BID 11/10/22 11/18/22 50 mg tablet (Stimulant Laxative Plus) lorazepam 1 mg tablet 1 mg PO BID PRN Anxiety 11/11/22 11/18/22 diclofenac sodium 1 % topical gel 1 ea topical BID PRN Pain (Scale 11/18/22 11/18/22 Score 1-3) olanzapine 10 mg tablet 10 mg PO BID 11/18/22 11/18/22 polyvinyl alcohol 1.4 % eye drops 1 drp ophthalmic (eye) Q4H PRN Dry 11/18/22 11/18/22 Eyes Previous Rx's Medication Instructions Recorded haloperidol 5 mg tablet 5 mg PO TID #90 tabs 07/23/22 Allergies Allergy/AdvReac Type Severity Reaction Status Date / Time No Known Allergies Allergy Verified 09/12/22 17:33 Review of Systems Review of Systems: Yes all other systems are reviewed and are negative PMFSH Past Medical History Medical History Afib Anxiety disorder CHF (congestive heart failure) Cognitive disorder COPD (chronic obstructive pulmonary disease) CVA (cerebrovascular accident) Mood disorder as late effect of traumatic brain injury Traumatic brain injury Social History Social History Household Members: Unknown / Unable to assess Housing: Other Housing Other:: correction Unable to assess alcohol history related to: Unable to respond Alcohol intake: never Patient Tobacco Use Status: Former Tobacco user Smoked in Last 30 Days: No Use of substances other than those prescribed or required for medical reasons: No Substance Use Type: Unknown Any prior treatment program specific to substance use: No Advance Directives: Yes Advance Directives on File: Yes Advance Directives Date on File: 11/11/21 service: No Current occupational status: disabled Physical Exam Vital Signs: Vital Signs: Last Vital Signs Temp 98.4 F 11/24/22 05:40 Pulse 84 11/24/22 05:40 Resp 16 11/24/22 05:40 BP 102/78 11/24/22 05:40 Pulse Ox 94 11/24/22 05:28 O2 Del Method Room Air 11/24/22 05:28 BMI result Body Mass Index 30.3 Appearance: Alert. Oriented X3. No acute distress. Eyes: PERRLA, No Nystagmus ENT: Pharynx normal. Oral Mucosa moist Neck: Normal inspection. Neck supple. CVS: Normal heart rate and rhythm. Pulses normal. Respiratory: No respiratory distress. Equal air entry bilateral, no wheezing/rales/rhonchi Abdomen: Soft and nontender. Bowel sounds are present, no mass palpable, no CVA tenderness Skin: Skin warm and dry. Normal skin color. Normal skin turgor. Extremities: No lower extremity edema. No calf tenderness Neuro: Oriented X 3. Left conductive posture with weakness. No sensory deficit.No cerebellar signs , cranial nerves II-XII intact Medical Decision Making Medical Decision Making MDM Narrative: Patient frequently using EMS services to come to the hospital trying to make himself slight down from the bed multiple times a day will consult case management who will be discussed the case with the correction Radiology Impression Discussion of test interpretation with radiology: I have reviewed the radiologist's reading. Radiologist Impression: CT/CT head/brain wo IV con IMPRESSION: 1.? No acute intracranial process seen. 2.? Right hijcruc-nyqbdkhm-arxhuycc lobe encephalomalacia from postop changes. There is a right frontoparietal subdural flap versus? subdural hematoma. No change from last exam 11/17/2022. 3.? There is a right hemispheric craniotomy with right xpoulbt-awtaqzdq-irqogxeq lobe encephalomalacia. There is asymmetric enlargement of right lateral ventricle from right cerebral encephalomalacia. Discharge Plan Discharge Clinical Impression: Fall Patient Disposition: Xfer Other Transfer Details: To correction CT scan of the head is negative, no signs of injury Instructions: Fall Prevention (ED) Additional Instructions: Care as advised avoid patient falling from the bed Prescriptions: No Action lorazepam [Ativan] 1 mg tablet 1 tab PO BID melatonin 5 mg capsule 2 cap PO BEDTIME mirtazapine 15 mg Tablet 15 mg PO BEDTIME atorvastatin 40 mg Tablet 40 mg PO BEDTIME gabapentin 400 mg Capsule 400 mg TID pantoprazole 40 mg Tablet,Delayed Release (Dr/Ec) 40 mg PO DAILY@1630 metoprolol tartrate 50 mg Tablet 50 mg PO BID Rx Instructions: HOLD IF SBP < 100 OR > 140 HOLD IF HR < 60 OR > 100 cetirizine 10 mg Tablet 10 mg PO DAILY finasteride 5 mg Tablet 5 mg PO DAILY Xarelto 20 mg Tablet 20 mg PO DAILY@1800 Rx Instructions: must administer with evening meal midodrine 5 mg tablet 1 tab PO TIDAC sertraline 100 mg Tablet 100 mg PO DAILY lamotrigine [Lamictal] 25 mg Tablet 25 mg PO BEDTIME Rx Instructions: tdd = 125 mg tramadol 100 mg Tablet 100 mg PO Q6H PRN (Reason: Back Pain) furosemide 20 mg Tablet 20 mg PO DAILY Rx Instructions: HOLD FOR SBP< 100 OR > 140 HOLD IF HR < 60 OR > 100 lamotrigine [Lamictal] 100 mg Tablet 100 mg PO BEDTIME Rx Instructions: TAKE TOGETHER WITH 25 MG TAB TDD= 125 MG buspirone 15 mg tablet 1 tab PO TID budesonide-formoterol [Symbicort] 160-4.5 mcg/actuation Hfa Aerosol Inhaler 2 puff INHALATION BID baclofen 20 mg Tablet 20 mg PO BID Incruse Ellipta 62.5 mcg/actuation Blister With Device 1 inh INHALATION DAILY acetaminophen 325 mg Tablet 650 mg PO Q6H PRN (Reason: HEADACHE, fEVER > 100.4, BODY ACHES ) haloperidol 5 mg Tablet 5 mg PO TID Qty: 90 0RF levetiracetam 500 mg tablet 500 mg PO BID sennosides-docusate sodium [Stimulant Laxative Plus] 8.6-50 mg tablet 2 tab PO BID clonidine HCl 0.1 mg tablet 0.1 mg PO TID albuterol sulfate 2.5 mg /3 mL (0.083 %) solution for nebulization 2.5 mg inhalation Q6H PRN (Reason: Shortness Of Breath Or Wheezing) lorazepam 1 mg Tablet 1 mg PO BID PRN (Reason: Anxiety) polyvinyl alcohol 1.4 % drops 1 drp ophthalmic (eye) Q4H PRN (Reason: Dry Eyes) olanzapine 10 mg tablet 10 mg PO BID diclofenac sodium 1 % gel 1 ea topical BID PRN (Reason: Pain (Scale Score 1-3))
[2022-11-24 05:28] VITALS: BP 102/56; PULSE 71; RESP 18; TEMP 36.9; O2SAT 94; BMI 30.3
[2022-11-24 05:40] VITALS: BP 102/78; PULSE 84; RESP 16; TEMP 36.9
[2022-11-24 06:31] VITALS: BP 100/59; PULSE 68; TEMP 36.9; O2SAT 92
--- NOTE | 2022-11-24 07:16 | PC.NURSE ---
pt covered in saturated linen. assisted with adls and fresh linen on bed. pt awaiting dc back to facility.
--- NOTE | 2022-11-24 09:45 | MHC.CM.ED ---
Received case management consult overnight from Dr Dallas. Patient is well known to ER due to freq ER visits. Patient has an invoked HCP and lives in a [facility] aware of freq ER visits. No CM interventions indicated at this time.
== END 2022-11-24 11:02 | disposition other institution (70) ==
PROVIDERS: Emergency Provider Internal Medicine
DX: S00.93XA Contusion of unspecified part of head, initial encounter (principal); R51.9 Headache, unspecified; W06.XXXA Fall from bed, initial encounter; Y93.9 Activity, unspecified; Y92.9 Unspecified place or not applicable; Y99.9 Unspecified external cause status
CPT/HCPCS: 70450; 99284

== ENCOUNTER 2022-11-26 18:32 | Emergency (ER) | payer OTHER, SELFPAY ==
--- NOTE | ~2022-11-26 | XR_ITS ---
EXAMINATION: XR elbow LT 2V, XR shoulder LT min 2V CLINICAL INFORMATION: Reason for Exam left elbow pain COMPARISON: Radiographs of the left shoulder done on 11/17/2022. TECHNIQUE: 2 views, 3 images of the left shoulder and 2 views of the left elbow were obtained. FINDINGS: Left shoulder and left elbow: Interval development of comminuted fracture is present at the proximal left humeral shaft. Underlying moderate diffuse osteopenia is noted. Significant overlying soft tissue swelling is present. The glenohumeral as well as acromioclavicular alignments are intact. Limited evaluation of the left elbow (related to suboptimal positioning secondary to proximal femoral fracture), shows no definite displaced fracture, subluxation or joint effusion. XR/XR elbow LT 2V IMPRESSION: 1. Moderate diffuse osteopenia. 2. Comminuted left proximal humeral fracture, new since 11/17/2022.
--- NOTE | ~2022-11-26 | CT_ITS ---
EXAMINATION: CT HEAD WITHOUT CONTRAST CT CERVICAL SPINE WITHOUT CONTRAST CLINICAL INFORMATION: Fall. COMPARISON: CT head 11/24/2022. CT head and cervical spine 11/17/2022. TECHNIQUE: Contiguous axial imaging was performed from the skull base to vertex without intravenous administration of contrast. Contiguous axial imaging was performed from the upper chest through the skull base without intravenous administration of contrast. Coronal and sagittal reformats were obtained at the acquisition workstation. This CT examination was performed using dose optimization techniques as appropriate, variously including the following: *Automated exposure control *Adjustment of mA and/or kV according to patient size (this includes techniques or standardized protocols for targeted exams where dose is matched to indication/reason for exam; i.e. extremities or head) *Use of iterative reconstruction technique DLP: 777 and 570 mGy-cm FINDINGS: Head: Examination is limited by motion. Changes from prior right hemispheric craniotomy. Chronic small extradural collection subjacent to the craniotomy flap with chronic cystic encephalomalacia throughout a large territory of the right MCA, stable. No evidence of acute intracranial hemorrhage or edematous territorial infarction. A few foci of hypoattenuation in the periventricular and deep white matter are consistent with mild microangiopathy. Soto-white matter differentiation is preserved stable ex vacuo dilatation of the right lateral ventricle. No evidence for obstructive hydrocephalus. No abnormal mass effect or midline shift. No acute soft tissue or osseous abnormalities. The mastoid air cells and paranasal sinuses are clear. Cervical Spine: Examination is limited by motion. The atlantooccipital and atlantoaxial articulations remain well aligned. Straightening of the normal cervical lordosis. Otherwise, there is anatomic alignment of the vertebral bodies and posterior elements. No evidence of acute fracture or subluxation. Multilevel cervical spondylosis with various degrees of neural foraminal encroachment and central spinal canal stenosis. There is no prevertebral soft tissue swelling. The thyroid gland and remaining cervical soft tissues are normal in appearance. The lung apices are not included within the [id number]. CT/CT cervical spine wo IV con IMPRESSION: Examination is limited by motion. 1. No evidence of acute intracranial hemorrhage or edematous territorial infarction. 2. Changes from prior right hemispheric craniotomy with chronic cystic encephalomalacia throughout a large territory of the right MCA and a chronic small extradural collection subjacent to the craniotomy flap. 3. No acute cervical spinal fractures or malalignment. 4. Multilevel cervical spondylosis with various degrees of neural foraminal encroachment and central spinal canal stenosis. If indicated, consider further evaluation with an MR of the cervical spine.
--- NOTE | ~2022-11-26 | XR_ITS ---
EXAMINATION: XR elbow LT 2V, XR shoulder LT min 2V CLINICAL INFORMATION: Reason for Exam left elbow pain COMPARISON: Radiographs of the left shoulder done on 11/17/2022. TECHNIQUE: 2 views, 3 images of the left shoulder and 2 views of the left elbow were obtained. FINDINGS: Left shoulder and left elbow: Interval development of comminuted fracture is present at the proximal left humeral shaft. Underlying moderate diffuse osteopenia is noted. Significant overlying soft tissue swelling is present. The glenohumeral as well as acromioclavicular alignments are intact. Limited evaluation of the left elbow (related to suboptimal positioning secondary to proximal femoral fracture), shows no definite displaced fracture, subluxation or joint effusion. XR/XR shoulder LT min 2V IMPRESSION: 1. Moderate diffuse osteopenia. 2. Comminuted left proximal humeral fracture, new since 11/17/2022.
--- NOTE | ~2022-11-26 | CT_ITS ---
EXAMINATION: CT chest, abdomen and pelvis with IV contrast. CLINICAL INDICATION: Chest strike trauma. COMPARISON: 11/21/2022 TECHNIQUE: 5 mm thin axial and reformatted 3 mm thin sagittal and coronal images of chest, abdomen and pelvis were obtained following IV 85 mL Omnipaque 350. DLP 1339. This CT examination was performed using dose optimization technique as appropriate, variously including the following: Automated exposure control Adjustment of MA and/or KV according to patient size(this includes techniques or standardized protocols for targeted exams where dose is matched to indication/reason for exam; extremities or head. Use of iterative reconstruction techniques. FINDINGS: CHEST: LUNGS: The lungs are hypoexpanded with diffuse bilateral increased interstitial markings suggestive of chronic interstitial lung disease. There is no acute consolidation. No pulmonary nodule or mass seen. Mediastinum: The thyroid lobes are symmetrical and normal. The central trachea and the bronchi are widely patent. Heart size and the great vessels are normal caliber. The pulmonary artery is well opacified without intraluminal filling defect or narrowing. The thoracic aorta is of normal caliber. No pericardial effusion seen. There is mild coronary artery calcifications. No abnormal size mediastinal lymph nodes or mass seen. Pleura: There is mild basilar posterior pleural thickening. Axilla: No abnormal size axillary lymph nodes. The chest wall is unremarkable. Osseous structures: No aggressive lytic or sclerotic process seen Abdomen and pelvis: Liver, ducts and gallbladder. The liver is normal size, contour and density. No focal lesion or intrahepatic ductal dilatation seen no perihepatic hematoma or fluid collection. The gallbladder is contracted but unremarkable. Spleen: Unremarkable. Pancreas: Unremarkable. Bilateral adrenal glands: Unremarkable. Kidneys and ureters: Both kidneys are normal size, shape and position. No radiopaque renal calculi or hydronephrosis. No intra or perirenal hematoma or fluid collection. Lymphovascular structures: The abdominal aorta is of normal caliber. There is no retroperitoneal lymph nodes GI tract: There is scattered stool and gas seen throughout the colon without any significant distention. The small bowel loops are normal caliber. Appendix is not visualized. Abdominal wall: There is no evidence of hernia. Pelvis: Unremarkable. Osseous structures: No aggressive lytic or sclerotic process seen. CT/CT abdomen pelvis w IV con IMPRESSION: Diffuse bilateral increase interstitial markings likely chronic lung disease. No acute pneumonic process or pleural effusion. Minimal bilateral basilar pleural thickening No acute intra-abdominal process seen. The solid organs are unremarkable.
[2022-11-26 19:04] VITALS: BP 102/61; BP 124/63; PULSE 70; PULSE 95; RESP 16; TEMP 37.1; O2SAT 95; O2SAT 96; BMI 29.6
[2022-11-26 19:33] LABS: INTERNATIONAL NORM RATIO 1.4 (0.9-1.1); Prothrombin Time 16.3 SEC (10.0-13.1)
[2022-11-26 19:51] LABS: Alanine Aminotransferase 11 U/L (0-40); Albumin Level 3.6 g/dL (3.5-5.0); Alkaline Phosphatase 113 U/L (39-117); Anion Gap 11 (12-20); Aspartate Amino Transferase 13 U/L (5-37); Bilirubin Total 0.9 mg/dL (0.0-1.0); Blood Urea Nitrogen 8 mg/dL (9-16); Calcium 8.6 mg/dL (8.4-10.2); Carbon Dioxide 30 mmol/L (22-29); Chloride 107 mmol/L (96-108); Creatinine Clr Calc Pharmacy 90.4; Estimated Glomerular Filt Rate > 60; Glucose Random 108 mg/dL (60-115); Potassium 3.7 mmol/L (3.3-5.1); Sodium 144 mmol/L (135-145); Total Protein 6.3 g/dL (6.5-8.0)
--- NOTE | 2022-11-26 20:02 | ECG_ITS ---
Test Reason : CHEST PAIN Blood Pressure : / mmHG Vent. Rate : 091 BPM Atrial Rate : 000 BPM P-R Int : 000 ms QRS Dur : 076 ms QT Int : 322 ms P-R-T Axes : 000 010 -28 degrees QTc Int : 396 ms Atrial fibrillation Low voltage QRS Nonspecific T wave abnormality Abnormal ECG When compared with ECG of 21-NOV-2022 17:02, No significant change was found Referred By: Yeni Lantigua Electronically Signed By:JOSEY MESSER
[2022-11-26 20:29] LABS: MANUAL DIFF FLAG NO
[2022-11-26 20:30] LABS: Basophils Percent Auto 0.4 % (0-2); Eosinophils Absolute Auto 0.1 X10*3/uL (0.0-0.4); Eosinophils Percent Auto 1.3 % (0-4); Hematocrit 32.3 % (42.0-52.0); Hemoglobin 10.2 g/dl (14.0-18.0); Imm Gran Abs Auto 0.05 X10*3/uL (0.00-0.03); Imm Gran Pct Auto 0.5 % (0.0-0.4); Lymphocytes Absolute Auto 3.1 X10*3/uL (1.2-4.9); Lymphocytes Percent Auto 29.5 % (20-40); Mean Corpuscular HGB Conc 31.6 g/dl (31.0-36.0); Mean Corpuscular Hemoglobin 29.3 pg (27.0-33.0); Mean Corpuscular Volume 92.8 fL (80.0-98.0); Mean Platelet Volume 9.9 fL (9.4-12.4); Monocytes Absolute Auto 0.7 X10*3/uL (0.1-1.2); Monocytes Percent Auto 6.2 % (2-11); Neutrophils Absolute Auto 6.6 x10*3/uL (2.0-8.3); Neutrophils Percent Auto 62.1 % (45-73); Platelet Count 231 X10*3/uL (160-400); Red Blood Count 3.48 X10*6/uL (4.60-5.80); Red Cell Distribution Width 14.5 % (11.0-16.0); White Blood Count 10.6 X10*3/uL (4.8-10.8)
[2022-11-26 20:47] VITALS: BP 141/84; PULSE 107; RESP 18; TEMP 36.9; O2SAT 96
[2022-11-26 20:49] LABS: Magnesium 2.3 mg/dL (1.6-2.6)
[2022-11-26 20:54] LABS: Troponin-I High Sensitivity < 2.7 ng/L (<3.5-35.0)
[2022-11-26] MEDS: iohexoL 350 MG/ML 100 ML INFUS..BTL 85 ML IV (20:54)
[2022-11-26] MEDS: fentaNYL citrate/PF 100 MCG/2 ML VIAL 25 MCG IVPUSH (21:00)
--- NOTE | 2022-11-26 21:55 | ED.EXTPRO ---
HPI - Extremity Problem General Chief complaint: Extremity Injury, Upper Stated complaint: LEFT ELBOW AND SHOULDER PAIN Time Seen by Provider: 11/26/22 18:52 Source: patient and EMS Mode of arrival: EMS Limitations: other (poor history) History of Present Illness HPI Narrative: This is a 57-year-old male history of anxiety, AFib, CHF, CVA, cognitive disorder, COPD, mood disorder, TBI coming from custodial status post unwitnessed fall, patient onto his left side, patient has left-sided deficits secondary to previous CVA, patient fell and is complaining of left shoulder pain. He states he did not his head or lose consciousness. Patient denies any other medical complaints at this time other than severe left shoulder pain, tells me is unable to move his left shoulder. Pain is 10/10. Patient is on Xarelto. Poor historian. Related Data Home Medications Medication Instructions Recorded Confirmed atorvastatin 40 mg tablet 40 mg PO BEDTIME 02/28/22 11/18/22 gabapentin 400 mg capsule 400 mg TID 02/28/22 11/18/22 lorazepam 1 mg tablet (Ativan) 1 tab PO BID 02/28/22 11/18/22 melatonin 5 mg capsule 2 cap PO BEDTIME 02/28/22 11/18/22 metoprolol tartrate 50 mg tablet 50 mg PO BID 02/28/22 11/18/22 mirtazapine 15 mg tablet 15 mg PO BEDTIME 02/28/22 11/18/22 pantoprazole 40 mg tablet,delayed 40 mg PO DAILY@1630 02/28/22 11/18/22 release cetirizine 10 mg tablet 10 mg PO DAILY 03/01/22 11/18/22 finasteride 5 mg tablet 5 mg PO DAILY 03/01/22 11/18/22 midodrine 5 mg tablet 1 tab PO TIDAC 03/01/22 11/18/22 rivaroxaban 20 mg tablet (Xarelto) 20 mg PO DAILY@1800 03/01/22 11/18/22 furosemide 20 mg tablet 20 mg PO DAILY 03/28/22 11/18/22 lamotrigine 100 mg tablet 100 mg PO BEDTIME 03/28/22 11/18/22 (Lamictal) lamotrigine 25 mg tablet (Lamictal) 25 mg PO BEDTIME 03/28/22 11/18/22 sertraline 100 mg tablet 100 mg PO DAILY 03/28/22 11/18/22 tramadol 100 mg tablet 100 mg PO Q6H PRN Back Pain 03/28/22 11/18/22 acetaminophen 325 mg tablet 650 mg PO Q6H PRN HEADACHE, fEVER 07/17/22 11/18/22 > 100.4, BODY ACHES baclofen 20 mg tablet 20 mg PO BID 07/17/22 11/18/22 budesonide-formoterol HFA 160 2 puff inhalation BID 07/17/22 11/18/22 mcg-4.5 mcg/actuation aerosol inhaler (Symbicort) buspirone 15 mg tablet 1 tab PO TID 07/17/22 11/18/22 umeclidinium 62.5 mcg/actuation 1 inh inhalation DAILY 07/17/22 11/18/22 blister powder for inhalation (Incruse Ellipta) albuterol sulfate 2.5 mg/3 mL 2.5 mg inhalation Q6H PRN 11/10/22 11/18/22 (0.083 %) solution for nebulization Shortness Of Breath Or Wheezing clonidine HCl 0.1 mg tablet 0.1 mg PO TID 11/10/22 11/18/22 levetiracetam 500 mg tablet 500 mg PO BID 11/10/22 11/18/22 sennosides 8.6 mg-docusate sodium 2 tab PO BID 11/10/22 11/18/22 50 mg tablet (Stimulant Laxative Plus) lorazepam 1 mg tablet 1 mg PO BID PRN Anxiety 11/11/22 11/18/22 diclofenac sodium 1 % topical gel 1 ea topical BID PRN Pain (Scale 11/18/22 11/18/22 Score 1-3) olanzapine 10 mg tablet 10 mg PO BID 11/18/22 11/18/22 polyvinyl alcohol 1.4 % eye drops 1 drp ophthalmic (eye) Q4H PRN Dry 11/18/22 11/18/22 Eyes Previous Rx's Medication Instructions Recorded haloperidol 5 mg tablet 5 mg PO TID #90 tabs 07/23/22 tramadol 50 mg tablet 50 mg PO Q8H PRN pain #10 tabs 11/26/22 Allergies Allergy/AdvReac Type Severity Reaction Status Date / Time No Known Allergies Allergy Verified 09/12/22 17:33 Review of Systems Review of Systems: Constitutional : No Weight loss, No Fever, No Chills, No Fatigue, No Malaise ENT/Mouth : No sore throat, No Rhinorrhea Eyes: No Eye Pain, No Swelling, No Redness Cardiovascular : No Chest Pain, No SOB, No Dyspnea on Exertion, No Orthopnea, No Edema, No Palpitations Respiratory : No Cough, No Sputum, No Wheezing Gastrointestinal : No Nausea, No Vomiting, No Diarrhea, No Constipation, No abdominal Pain, No Hematochezia, No Melena Genitourinary : No Dysuria, No Urinary Frequency, No Hematuria, Musculoskeletal : + joint pain, No Myalgias, + Joint Swelling Skin : No Skin Lesions, No rash Neuro : No Weakness, No Numbness, No Dizziness, No Headache Psych : No Anxiety/Panic, No Depression All other systems reviewed and are negative Yes all other systems are reviewed and are negative [facility] Past Medical History Attestation statement: The following information was validated with the patient. Source: old records reviewed and nursing notes reviewed Medical History Afib Anxiety disorder CHF (congestive heart failure) Cognitive disorder COPD (chronic obstructive pulmonary disease) CVA (cerebrovascular accident) Mood disorder as late effect of traumatic brain injury Traumatic brain injury Social History Social History Household Members: Unknown / Unable to assess Housing: Other Housing Other:: custodial Unable to assess alcohol history related to: Unable to respond Alcohol intake: never Patient Tobacco Use Status: Former Tobacco user Substance Use Type: Unknown Advance Directives: Yes Advance Directives on File: Yes Advance Directives Date on File: 11/11/21 service: No Current occupational status: disabled Physical Exam Vital Signs: Vital Signs: Last Vital Signs Temp 98.4 F 11/26/22 20:47 Pulse 97 11/26/22 22:01 Resp 18 11/26/22 22:01 BP 108/78 11/26/22 22:01 Pulse Ox 3 L 11/26/22 22:01 O2 Del Method Nasal Cannula 11/26/22 22:01 O2 Flow Rate 3 11/26/22 20:47 Oxygen Flow Rate 2 11/26/22 19:04 BMI result Body Mass Index 29.6 vss Appearance: Alert.? Oriented X3.? No acute distress.? Head: Normocephalic, atraumatic, no step-offs or deformities Eyes: Pupils equal, round and reactive to light.? ENT: Pharynx normal.? Neck: Normal inspection.? Neck supple.? CVS: Normal heart rate and rhythm.? Pulses normal.? Respiratory: No respiratory distress.? Breath sounds normal.? Abdomen: Soft and nontender.? Skin: Skin warm and dry.? Normal skin color.? Normal skin turgor.? Extremities: No lower extremity edema.? No calf ttp. Global weakness + tenderness to palpation overlying left distal aspect of clavicle and left humeral head. 2+ radial pulses equal bilateral. No wrist drop. 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 Neuro: Oriented X 3.? No motor deficit.? No sensory deficit. CN 2-12 intact Course Reevaluation(s) Reevaluation #1: Patient's x-ray of left elbow with moderate diffuse osteopenia. Patient's left shoulder x-ray with comminuted left proximal humeral fracture, new since 11/17/[address]22. Will place in sling. Pending CT scans. Time: 22:03 Reevaluation #2: CT of head and brain with no evidence of acute intracranial hemorrhage or edematous territorial infarction. Changes from right tonja sphere craniotomy with chronic cystic encephalomalacia. No acute cervical spine fractures or malalignment. Multilevel cervical spondylosis with various degrees of neural foraminal encroachment and central spinal canal stenosis, no signs of cord compression at this time. No need for emergent MRI. CT of the chest with diffuse bilateral increased interstitial markings, likely chronic lung disease. No known pneumatic process or pleural effusion. No acute intra-abdominal process seen. The solid organs are unremarkable. Discussed this case with orthopedics Dr. Rizo who recommends sling, follow-up with orthopedics within the next week. Time: 22:55 Reevaluation #3: Will discharge patient home with tramadol for pain patient has tolerated this well in the past. Educated patient on diagnosis and treatment plan, answered all question, patient verbalizes understanding. At this time patient will be discharged home, advised to return with new or worsening symptoms. Educated on worrisome signs and symptoms and when to return. At this time I feel comfortable discharge home. Time: 22:55 Additional Reevaluation(s): Patient has not yet given us a urine, no urinary symptoms low suspicion for UTI. Medications Administered Discontinued Medications Generic Name Dose Route Start Last Admin Trade Name Marcel PRN Reason Stop Dose Admin Fentanyl 25 mcg 11/26/22 20:44 11/26/22 21:00 Fentanyl Citrate/Pf 100 Mcg/2 Ml Vial IVPUSH 11/26/22 20:45 25 mcg ONCE ONE Administration Protocol Iohexol 85 ml 11/26/22 20:53 11/26/22 20:54 Iohexol 350 Mg/Ml 100 Ml Infus..Btl IV 11/26/22 20:54 85 ml ONCE ONE Administration Medical Decision Making Medical Decision Making [facility] Narrative: 57-year-old male presents with complaints of left shoulder pain status post fall, unclear history. Patient on Xarelto Physical exam significant for + tenderness to palpation overlying left distal aspect of clavicle and left humeral head. 2+ radial pulses equal bilateral. No wrist drop. 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 Concerns for fracture dislocation of left shoulder. No signs of neurovascular compromise. Will rule out traumatic injury to head, neck, chest, abdomen and pelvis. Will rule out electrolyte abnormalities, ACS, UTI although unlikely. Plan labs, imaging, urine Differential Diagnosis Differential Diagnoses: The differential diagnosis associated with the presentation includes Concerns for fracture dislocation of left shoulder. No signs of neurovascular compromise. Will rule out traumatic injury to head, neck, chest, abdomen and pelvis. Will rule out electrolyte abnormalities, ACS, UTI although unlikely. Admission/Observation Consideration of admission/observation: Escalation of care including admission/observation considered Unlikely Consult Healthcare Provider Management of the patient was discussed with: Licensed Esthetician (Dr. Rizo orthopedics) Lab Data [facility] Lab Attestation statement: I reviewed the patient's lab results. 11/26/22 19:19 11/26/22 19:19 Labs: Lab Results 11/26/22 11/26/22 11/26/22 Range/Units 19:19 19:19 19:19 WBC 10.6 (4.8-10.8) X10*3/uL RBC 3.48 L (4.60-5.80) X10*6/uL Hgb 10.2 L D (14.0-18.0) g/dl Hct 32.3 L (42.0-52.0) % MCV 92.8 (80.0-98.0) fL MCH 29.3 (27.0-33.0) pg MCHC 31.6 (31.0-36.0) g/dl RDW 14.5 (11.0-16.0) % Plt Count 231 (160-400) X10*3/uL MPV 9.9 (9.4-12.4) fL Immature Gran % (Auto) 0.5 H (0.0-0.4) % Neut % (Auto) 62.1 (45-73) % Lymph % (Auto) 29.5 (20-40) % [place] % (Auto) 6.2 (2-11) % Eos % (Auto) 1.3 (0-4) % Baso % (Auto) 0.4 (0-2) % Lymph # (Auto) 3.1 (1.2-4.9) X10*3/uL [place] # (Auto) 0.7 (0.1-1.2) X10*3/uL Eos # (Auto) 0.1 (0.0-0.4) X10*3/uL Baso # (Auto) 0.0 (0.0-0.2) X10*3/uL Abs Immat Gran (auto) 0.05 H (0.00-0.03) X10*3/uL Absolute Neuts (auto) 6.6 (2.0-8.3) x10*3/uL Absolute Nucleated RBC 0.000 (0.0-0.012) X10*3/uL Nucleated RBC % (auto) 0.0 (0.0-0.2) /100WBC PT 16.3 H (10.0-13.1) SEC INR 1.4 H (0.9-1.1) Sodium 144 (135-145) mmol/L Potassium 3.7 (3.3-5.1) mmol/L Chloride 107 (96-108) mmol/L Carbon Dioxide 30 H (22-29) mmol/L Anion Gap 11 L (12-20) BUN 8 L (9-16) mg/dL Creatinine 1.19 (0.5-1.4) mg/dL Estim Creat Clear Calc 90.4 Estimated GFR > 60 Random Glucose 108 (60-115) mg/dL Calcium 8.6 D (8.4-10.2) mg/dL Magnesium (1.6-2.6) mg/dL Total Bilirubin 0.9 (0.0-1.0) mg/dL AST 13 (5-37) U/L ALT 11 (0-40) U/L Alkaline Phosphatase 113 (39-117) U/L Troponin I High Sens (<3.5-35.0) ng/L Total Protein 6.3 L (6.5-8.0) g/dL Albumin 3.6 (3.5-5.0) g/dL 11/26/22 11/26/22 Range/Units 20:25 20:25 WBC (4.8-10.8) X10*3/uL RBC (4.60-5.80) X10*6/uL Hgb (14.0-18.0) g/dl Hct (42.0-52.0) % MCV (80.0-98.0) fL MCH (27.0-33.0) pg MCHC (31.0-36.0) g/dl RDW (11.0-16.0) % Plt Count (160-400) X10*3/uL MPV (9.4-12.4) fL Immature Gran % (Auto) (0.0-0.4) % Neut % (Auto) (45-73) % Lymph % (Auto) (20-40) % [place] % (Auto) (2-11) % Eos % (Auto) (0-4) % Baso % (Auto) (0-2) % Lymph # (Auto) (1.2-4.9) X10*3/uL [place] # (Auto) (0.1-1.2) X10*3/uL Eos # (Auto) (0.0-0.4) X10*3/uL Baso # (Auto) (0.0-0.2) X10*3/uL Abs Immat Gran (auto) (0.00-0.03) X10*3/uL Absolute Neuts (auto) (2.0-8.3) x10*3/uL Absolute Nucleated RBC (0.0-0.012) X10*3/uL Nucleated RBC % (auto) (0.0-0.2) /100WBC PT (10.0-13.1) SEC INR (0.9-1.1) Sodium (135-145) mmol/L Potassium (3.3-5.1) mmol/L Chloride (96-108) mmol/L Carbon Dioxide (22-29) mmol/L Anion Gap (12-20) BUN (9-16) mg/dL Creatinine (0.5-1.4) mg/dL Estim Creat Clear Calc Estimated GFR Random Glucose (60-115) mg/dL Calcium (8.4-10.2) mg/dL Magnesium 2.3 (1.6-2.6) mg/dL Total Bilirubin (0.0-1.0) mg/dL AST (5-37) U/L ALT (0-40) U/L Alkaline Phosphatase (39-117) U/L Troponin I High Sens < 2.7 (<3.5-35.0) ng/L Total Protein (6.5-8.0) g/dL Albumin (3.5-5.0) g/dL Independent Interpretation I performed an independent interpretation of an: Plain X-Ray (XR/XR shoulder LT min 2V IMPRESSION: 1. Moderate diffuse osteopenia. 2. Comminuted left proximal humeral fracture, new since 11/17/2022. ) and CT Scan Radiology Impression Discussion of test interpretation with radiology: I have reviewed the radiologist's reading. External Record Review External record reviewed: Inpatient record, Office record, Outpatient record, Prior outpatient labs, Prior outpatient radiology, Primary care record and Outside ED record Prescription Management I considered prescription management with: Pain Medication Core Measures AMI core measures followed: Yes Measure exclusions: not indicated Critical Care Time Critical Care Time Critical Care Time: No Discharge Plan Discharge Clinical Impression: Fracture, humerus Patient Disposition: Home, Self-Care Instructions: How to Use a Sling (ED) Additional Instructions: Take your medications as prescribed. If you were prescribed antibiotics today, it is important that you take your medication to their entirety, do not skip any doses, do not finish them early. Follow-up with your primary care provider this week. Return to the emergency department with new or worsening symptoms. Such as fevers, chills, chest pain, shortness of breath, nausea, vomiting, dizziness, headache, vision changes, lethargy In case of emergency call 911 A narcotic has been sent to your pharmacy please take this as prescribed. Do not take more than the prescribed dose. Narcotic medications can cause addiction. Please do not mix them with alcohol. Do not take them while driving or operating machinery. Do not take them with any other narcotics. Do not share them with friends or family. They can cause constipation. Take them only for severe pain. Prescriptions: New tramadol 50 mg tablet 50 mg PO Q8H PRN (Reason: pain) Qty: 10 0RF No Action lorazepam [Ativan] 1 mg tablet 1 tab PO BID melatonin 5 mg capsule 2 cap PO BEDTIME mirtazapine 15 mg Tablet 15 mg PO BEDTIME atorvastatin 40 mg Tablet 40 mg PO BEDTIME gabapentin 400 mg Capsule 400 mg TID pantoprazole 40 mg Tablet,Delayed Release (Dr/Ec) 40 mg PO DAILY@1630 metoprolol tartrate 50 mg Tablet 50 mg PO BID Rx Instructions: HOLD IF SBP < 100 OR > 140 HOLD IF HR < 60 OR > 100 cetirizine 10 mg Tablet 10 mg PO DAILY finasteride 5 mg Tablet 5 mg PO DAILY Xarelto 20 mg Tablet 20 mg PO DAILY@1800 Rx Instructions: must administer with evening meal midodrine 5 mg tablet 1 tab PO TIDAC sertraline 100 mg Tablet 100 mg PO DAILY lamotrigine [Lamictal] 25 mg Tablet 25 mg PO BEDTIME Rx Instructions: tdd = 125 mg tramadol 100 mg Tablet 100 mg PO Q6H PRN (Reason: Back Pain) furosemide 20 mg Tablet 20 mg PO DAILY Rx Instructions: HOLD FOR SBP< 100 OR > 140 HOLD IF HR < 60 OR > 100 lamotrigine [Lamictal] 100 mg Tablet 100 mg PO BEDTIME Rx Instructions: TAKE TOGETHER WITH 25 MG TAB TDD= 125 MG buspirone 15 mg tablet 1 tab PO TID budesonide-formoterol [Symbicort] 160-4.5 mcg/actuation Hfa Aerosol Inhaler 2 puff INHALATION BID baclofen 20 mg Tablet 20 mg PO BID Incruse Ellipta 62.5 mcg/actuation Blister With Device 1 inh INHALATION DAILY acetaminophen 325 mg Tablet 650 mg PO Q6H PRN (Reason: HEADACHE, fEVER > 100.4, BODY ACHES ) haloperidol 5 mg Tablet 5 mg PO TID Qty: 90 0RF levetiracetam 500 mg tablet 500 mg PO BID sennosides-docusate sodium [Stimulant Laxative Plus] 8.6-50 mg tablet 2 tab PO BID clonidine HCl 0.1 mg tablet 0.1 mg PO TID albuterol sulfate 2.5 mg /3 mL (0.083 %) solution for nebulization 2.5 mg inhalation Q6H PRN (Reason: Shortness Of Breath Or Wheezing) lorazepam 1 mg Tablet 1 mg PO BID PRN (Reason: Anxiety) polyvinyl alcohol 1.4 % drops 1 drp ophthalmic (eye) Q4H PRN (Reason: Dry Eyes) olanzapine 10 mg tablet 10 mg PO BID diclofenac sodium 1 % gel 1 ea topical BID PRN (Reason: Pain (Scale Score 1-3)) [place]: [facility] [place]Provider Group] - 2 days Physician,Unknown J [Primary Care Provider] - 2 days Stand Alone Forms: Work/School Release
[2022-11-26 22:01] VITALS: BP 108/78; PULSE 97; RESP 18; O2SAT 3
--- NOTE | 2022-11-26 23:16 | MHC.EDTECH ---
t/w emptied catheter bag 500 cc
[2022-11-26 23:19] LABS: Appearance Urine Clear; Color Urine Yellow; Glucose Urine UA Negative (Negative); Leukocyte Esterase Urine Small (1+) (Negative); Nitrite Urine Positive (Negative); PH 7.5 (5.0-9.0); Specific Gravity - Urine >= 1.030 (1.005-1.025); UMIC TRIGGER UACC YES; Urine Blood Negative (Negative); Urine Ketones Negative (Negative); Urine Protein Negative (Neg-Trace)
--- NOTE | 2022-11-26 23:27 | MHC.EDTECH ---
Call out to [facility] @[id number] to book BLS transport back to [facility]
[2022-11-26 23:35] LABS: Bacteria Urine 4+ (None Seen); Hyaline Casts Urine 0-2 /LPF (0-2); RBC Urine 0-2 /HPF (0-2); Squamous Epithelial Cell Urine 0-2 /HPF (0-2); UACC Culture Trigger YES; WBC Urine 0-5 /HPF (0-5)
[2022-11-26 23:51] VITALS: BP 136/84; PULSE 64; RESP 14
== END 2022-11-26 23:58 | disposition home or self-care (01) ==
PROVIDERS: Physician Assistant; Emergency Provider Emergency Medicine
DX: S42.352A Displaced comminuted fracture of shaft of humerus, left arm, initial encounter for closed fracture (principal); W19.XXXA Unspecified fall, initial encounter; Z79.899 Other long term (current) drug therapy; Y93.9 Activity, unspecified; Y92.9 Unspecified place or not applicable; Y99.9 Unspecified external cause status
CPT/HCPCS: 36415; 70450; 71260; 72125; 73030; 73070; 74177; 80053; 81001; 83735; 84484; 85025; 85610; 87086; 87088; 87186; 93005; 96374; 99284; 99285; J3010; Q9967